=== PATIENT | female | born 1950 | race Caucasian/White ===

== ENCOUNTER 2017-10-30 16:56 | Inpatient (IN) | payer OTHER ==
--- NOTE | 2017-10-30 17:26 | ER ---
Nurse's Notes [facility] Name: Louise Raines Age: 67 yrs Sex: Female : 1950 Arrival Date: 10/30/2017 Time: 17:09 Bed 30 Private MD: Diagnosis: Chronic obstructive pulmonary disease with (acute) exacerbation;Hypoxemia;Weakness Presentation: 10/30 17:16 Presenting complaint: EMS states: Patient called for CP, SOB, wheezing and productive aj1 cough. She was diagnosed with a URI 4 days ago but has been feeling progressively worse. Patient had diffuse wheezing on EMS arrival, heart rate in the 120's. Patient was administered albuterol and atrovent by nebulizer. After treatment patient states that she is feeling much better, heart rate down to the 90's. Breath sounds with wheezes bilaterally. Patient complains of feeling very fatigued for the last several days. Transition of care: patient was not received from another setting of care. Onset of symptoms was October 26, 2017. Initial Sepsis Screen: Does the patient meet any 2 criteria? RR > 20 per min. HR > 90 bpm. Yes Does the patient have a suspected source of infection? Yes: Productive cough/pneumonia If YES to both, name of provider notified: Malcolm Teran MD. Care prior to arrival: Medication(s) given: Albuterol Neb x 1, Atrovent Neb x 1, IV initiated. 20 GA, in the right antecubital area, Glucose check: 92 Med neb given. 17:16 Method Of Arrival: EMS aj1 17:16 Acuity: JAIME 3 aj1 Triage Assessment: 17:26 General: Appears uncomfortable, ill, Behavior is calm, cooperative. Pain: Complains of aj1 pain in chest. Neuro: Level of Consciousness is awake, alert, obeys commands, Oriented to person, place, time, situation, Moves all extremities. Full function Speech is normal, Facial symmetry appears normal. Cardiovascular: Reports chest pain, fatigue, lightheadedness, shortness of breath, Heart tones S1 S2 present Patient's skin is warm and dry. Respiratory: Reports shortness of breath at rest cough that is productive, Airway is patent Respiratory effort is even, unlabored, Respiratory pattern is regular, symmetrical, Breath sounds with wheezes bilaterally. Derm: Skin is pale. Historical: - Allergies: 17:26 Adhesives; aj1 17:26 ambien; aj1 17:26 Iodine; aj1 - Home Meds: 17:26 Advair Diskus 100-50 mcg/dose Inhl dsdv 1 puff 2 times per day [Active]; albuterol aj1 sulfate 2.5 mg /3 mL (0.083 %) Inhl nebu every 4 hours [Active]; amlodipine 10 mg tab 1 tab once daily [Active]; aspirin 81 mg Oral TbEC 1 tab once daily [Active]; duloxetine 30 mg Oral cpDR 1 cap once daily [Active]; levothyroxine 50 mcg tab 1 tab once daily [Active]; Lopid 600 mg Oral tab 1 tab 2 times per day [Active]; metoprolol tartrate 50 mg Oral tab 1 tab 2 times per day [Active]; omeprazole 20 mg Oral cpDR 1 cap once daily [Active]; ropinirole 0.5 mg Oral tab 1 tab [Active]; Seroquel 200 mg Oral tab 1 tab [Active]; trazodone 50 mg Oral tab 1 tab [Active]; Vitamin D Oral 1000 unit [Active]; - PMHx: 17:26 COPD; Hypertension; Hypothyroidism; aj1 - PSHx: 17:26 Hysterectomy; Cholecystectomy; colon resection; stent in arm; aortic bypass (in pelvis);aj1 - Immunization history:: Adult Immunizations up to date. - Family history:: not pertinent. - Social history:: Smoking status: Patient uses tobacco products, smokes two packs cigarettes per day. Screenin:55 Abuse screen: Denies threats or abuse. Nutritional screening: No deficits noted. tl3 Tuberculosis screening: No symptoms or risk factors identified. Fall Risk None identified. Assessment: 17:55 General: Appears distressed, uncomfortable, emaciated. Pain: Unable to use pain scale. tl3 Patient is disoriented. Neuro: Level of Consciousness is awake, lethargic. Cardiovascular: Heart tones S1 S2 present Respiratory: Airway is patent Trachea midline Respiratory effort is labored, with nasal flaring, Respiratory pattern is tachypnea Breath sounds are diminished bilaterally. GI: No signs and/or symptoms were reported involving the gastrointestinal system. : No signs and/or symptoms were reported regarding the genitourinary system. EENT: No signs and/or symptoms were reported regarding the EENT system. Derm: Skin is fragile, is thin, Skin is pale. Musculoskeletal: No signs and/or symptoms reported regarding the musculoskeletal system. 17:55 Reassessment: pt seen and treated for upper respiratory infection on last Sunday, on tl3 prednisone and levofloxin. 19:00 Reassessment: No changes from previously documented assessment. Patient and/or family tl3 updated on plan of care and expected duration. Pain level reassessed. Patient is alert, oriented x 3, equal unlabored respirations, skin warm/dry/pink. pt arouses to verbal and tactile stimulation and will answer questions in one word answers. continues to not be engaged with her environment. Daughter at bedside. Vital Signs: 17:26 BP 110 / 73; Pulse 94; Resp 24; Temp 98.7; Pulse Ox 88% on R/A; aj1 17:29 Pulse Ox 94% on 2 lpm NC; aj1 17:55 BP 129 / 66; Pulse 88; Resp 22; Pulse Ox 99% ; tl3 18:04 Weight 38.1 kg; Height 5 ft. 4 in. (162.56 cm); tl3 19:00 BP 118 / 76; Pulse 93; Resp 16; Pulse Ox 96% on 2 lpm NC; tl3 18:04 Body Mass Index 14.42 (38.10 kg, 162.56 cm) tl3 ED Course: 17:09 Patient arrived in ED. gael 17:09 Malcolm Teran MD is Attending Physician. gael 17:13 Angela Betancur, RN is Primary Nurse. tl3 17:22 Triage completed. aj1 17:24 Aniket Rojas DO is Hospitalizing Provider. gael 17:26 X-ray completed. Portable x-ray completed in exam room. Patient tolerated procedure ml well. 17:27 XRAY Chest (1 view) In Process Unspecified. EDMS 17:30 Arm band placed on. aj1 17:34 EKG done, by professor of industrial technology. reviewed by Malcolm Teran MD. at1 17:55 Awaiting bed assignment. tl3 17:55 Patient has correct armband on for positive identification. Bed in low position. Call tl3 light in reach. Side rails up X2. Adult w/ patient. compliance monitor on. Pulse ox on. NIBP on. Door closed. Lights dimmed. Warm blanket given. 17:55 No provider procedures requiring assistance completed. Initial lab(s) drawn, by vt, tl3 sent to lab. Inserted saline lock: 24 gauge in left hand, using aseptic technique. Blood collected. 20:18 TSH Sent. tl3 20:19 Basic Metabolic Panel Sent. tl3 20:19 BNP Sent. tl3 20:19 Patient admitted, IV remains in place. tl3 Administered Medications: 18:04 Drug: Albuterol - atroVENT (3:1) (2.5 mg - 0.5 mg) 3 ml Route: Nebulizer; tl3 18:25 Drug: Rocephin - (cefTRIAXone) 1 grams Route: IVPB; Infused Over: 30 mins; Site: left tl3 wrist; 18:40 Follow up: IV Status: Completed infusion; IV Intake: 20ml tl3 18:27 Drug: SOLU-Medrol 2 mg/kg Route: IVP; Infused Over: 3 mins; Site: left wrist; tl3 20:07 Follow up: Response: No adverse reaction tl3 18:42 Drug: Zithromax 500 mg Route: IVPB; Infused Over: 1 hrs; Site: right wrist; tl3 19:45 Follow up: IV Status: Completed infusion; IV Intake: 250ml tl3 Intake: 18:40 IV: 20ml; Total: 20ml. tl3 19:45 IV: 250ml; Total: 270ml. tl3 Outcome: 17:25 Decision to Hospitalize by Provider. gael 20:19 Admitted to Tele accompanied by tech, via stretcher, with chart, Report called to tl3 ADWOA Garvin 20:19 Condition: stable 20:19 Instructed on the need for admit. 21:05 Patient left the ED. tl3 Signatures: Dispatcher [employer] Roselyn Masters, RN RN aj1 Malcolm Teran MD MD cha Lopez, Melissa ml gonzales, Amanda, astrophysics teacher EKG TatAngela Adkins RN RN tl3
--- NOTE | 2017-10-30 17:26 | EDPHYS ---
Physician Documentation [facility] Name: Louise Raines Age: 67 yrs Sex: Female : 1950 Arrival Date: 10/30/2017 Time: 17:09 Bed 30 Private MD: ED Physician Malcolm Teran HPI: 10/30 17:13 This 67 yrs old Female presents to ER via Unassigned with complaints of copd gael exacerbation. 17:13 The patient has shortness of breath at rest. Onset: The symptoms/episode began/occurred gael 2 day(s) ago. Duration: The symptoms are continuous, and are steadily getting worse. The patient's shortness of breath has no apparent modifying factors. The patient presents with a history of heart racing. The patient or guardian reports airway noise, cough, that is constant, difficulty breathing, flu symptoms. Historical: - Allergies: 17:26 Adhesives; aj1 17:26 ambien; aj1 17:26 Iodine; aj1 - Home Meds: 17:26 Advair Diskus 100-50 mcg/dose Inhl dsdv 1 puff 2 times per day [Active]; albuterol aj1 sulfate 2.5 mg /3 mL (0.083 %) Inhl nebu every 4 hours [Active]; amlodipine 10 mg tab 1 tab once daily [Active]; aspirin 81 mg Oral TbEC 1 tab once daily [Active]; duloxetine 30 mg Oral cpDR 1 cap once daily [Active]; levothyroxine 50 mcg tab 1 tab once daily [Active]; Lopid 600 mg Oral tab 1 tab 2 times per day [Active]; metoprolol tartrate 50 mg Oral tab 1 tab 2 times per day [Active]; omeprazole 20 mg Oral cpDR 1 cap once daily [Active]; ropinirole 0.5 mg Oral tab 1 tab [Active]; Seroquel 200 mg Oral tab 1 tab [Active]; trazodone 50 mg Oral tab 1 tab [Active]; Vitamin D Oral 1000 unit [Active]; - PMHx: 17:26 COPD; Hypertension; Hypothyroidism; aj1 - PSHx: 17:26 Hysterectomy; Cholecystectomy; colon resection; stent in arm; aortic bypass (in pelvis);aj1 - Immunization history:: Adult Immunizations up to date. - Family history:: not pertinent. - Social history:: Smoking status: Patient uses tobacco products, smokes two packs cigarettes per day. ROS: 17:13 Constitutional: Negative for fever, chills, and weight loss, Eyes: Negative for injury, gael pain, redness, and discharge, ENT: Negative for injury, pain, and discharge, Neck: Negative for injury, pain, and swelling, Cardiovascular: Negative for chest pain, palpitations, and edema, Abdomen/GI: Negative for abdominal pain, nausea, vomiting, diarrhea, and constipation, Back: Negative for injury and pain, : Negative for injury, bleeding, discharge, and swelling, MS/Extremity: Negative for injury and deformity, Skin: Negative for injury, rash, and discoloration, Neuro: Negative for headache, weakness, numbness, tingling, and seizure, Psych: Negative for depression, anxiety, suicide ideation, homicidal ideation, and hallucinations, Allergy/Immunology: Negative for hives, rash, and allergies, Endocrine: Negative for neck swelling, polydipsia, polyuria, polyphagia, and marked weight changes, Hematologic/Lymphatic: Negative for swollen nodes, abnormal bleeding, and unusual bruising. 17:13 Respiratory: Positive for cough, shortness of breath, wheezing, inspiratory, expiratory. Exam: 17:13 Constitutional: This is a well developed, well nourished patient who is awake, alert, gael and in no acute distress. Head/Face: Normocephalic, atraumatic. Eyes: Pupils equal round and reactive to light, extra-ocular motions intact. Lids and lashes normal. Conjunctiva and sclera are non-icteric and not injected. Cornea within normal limits. Periorbital areas with no swelling, redness, or edema. ENT: Nares patent. No nasal discharge, no septal abnormalities noted. Tympanic membranes are normal and external auditory canals are clear. Oropharynx with no redness, swelling, or masses, exudates, or evidence of obstruction, uvula midline. Mucous membranes moist. Neck: Trachea midline, no thyromegaly or masses palpated, and no cervical lymphadenopathy. Supple, full range of motion without nuchal rigidity, or vertebral point tenderness. No Meningismus. Chest/axilla: Normal chest wall appearance and motion. Nontender with no deformity. No lesions are appreciated. Cardiovascular: Regular rate and rhythm with a normal S1 and S2. No gallops, murmurs, or rubs. Normal PMI, no JVD. No pulse deficits. Abdomen/GI: Soft, non-tender, with normal bowel sounds. No distension or tympany. No guarding or rebound. No evidence of tenderness throughout. Back: No spinal tenderness. No costovertebral tenderness. Full range of motion. Female : Normal external genitalia. Skin: Warm, dry with normal turgor. Normal color with no rashes, no lesions, and no evidence of cellulitis. MS/ Extremity: Pulses equal, no cyanosis. Neurovascular intact. Full, normal range of motion. Neuro: Awake and alert, GCS 15, oriented to person, place, time, and situation. Cranial nerves II-XII grossly intact. Motor strength 5/5 in all extremities. Sensory grossly intact. Cerebellar exam normal. Normal gait. Psych: Awake, alert, with orientation to person, place and time. Behavior, mood, and affect are within normal limits. 17:13 Respiratory: the patient does not display signs of respiratory distress, Respirations: normal, Breath sounds: bronchial sounds, that are mild, that are moderate, decreased breath sounds, that are mild, rhonchi, that are mild, wheezing: expiratory 18:11 Musculoskeletal/extremity: DVT Exam: No signs of deep vein thrombosis. no pain, no gael swelling, no tenderness, negative Homans' sign noted on exam, no appreciated bluish discoloration, no erythema, no increased warmth. Vital Signs: 17:26 BP 110 / 73; Pulse 94; Resp 24; Temp 98.7; Pulse Ox 88% on R/A; aj1 17:29 Pulse Ox 94% on 2 lpm NC; aj1 17:55 BP 129 / 66; Pulse 88; Resp 22; Pulse Ox 99% ; tl3 18:04 Weight 38.1 kg; Height 5 ft. 4 in. (162.56 cm); tl3 19:00 BP 118 / 76; Pulse 93; Resp 16; Pulse Ox 96% on 2 lpm NC; tl3 18:04 Body Mass Index 14.42 (38.10 kg, 162.56 cm) 3 MDM: 17:09 Patient medically screened. [facility] 17:13 Data reviewed: vital signs, nurses notes, lab test result(s), EKG, radiologic studies, [facility] plain films. 10/30 17:12 Order name: Basic Metabolic Panel [facility] 10/30 17:12 Order name: BNP [facility] 10/30 17:12 Order name: CBC with Diff; Complete Time: 17:52 [facility] 10/30 17:12 Order name: Ckmb [facility] 10/30 17:12 Order name: CPK [facility] 10/30 17:12 Order name: LFT's [facility] 10/30 17:12 Order name: Magnesium [facility] 10/30 17:12 Order name: PT-INR [facility] 10/30 17:12 Order name: Ptt, Activated [facility] 10/30 17:12 Order name: Troponin (emerg Dept Use Only) [facility] 10/30 17:12 Order name: Blood Culture Adult (2) [facility] 10/30 17:12 Order name: Lipase [facility] 10/30 17:12 Order name: Urine Culture [facility] 10/30 17:13 Order name: Basic Metabolic Panel [facility] 10/30 17:12 Order name: XRAY Chest (1 view); Complete Time: 18:05 [facility] 10/30 17:12 Order name: EKG; Complete Time: 17:14 [facility] 10/30 17:12 Order name: Cardiac monitoring; Complete Time: 19:00 [facility] 10/30 17:12 Order name: EKG - Nurse/Tech; Complete Time: 18:45 [facility] 10/30 17:12 Order name: IV Saline Lock; Complete Time: 18:45 [facility] 10/30 17:12 Order name: Labs collected and sent; Complete Time: 18:45 [facility] 10/30 17:13 Order name: BNP B-Type Natriuretic Peptide; Complete Time: 18:11 [facility] 10/30 17:30 Order name: TSH [facility] 10/30 17:30 Order name: Thyroid Stimulating Hormone [facility] 10/30 17:32 Order name: Procalcitonin [facility] 10/30 17:32 Order name: Flu [facility] 10/30 17:57 Order name: CONS Physician Consult [facility] 10/30 17:12 Order name: O2 Per Protocol; Complete Time: 19:00 [facility] 10/30 17:12 Order name: O2 Sat Monitoring; Complete Time: 19:00 [facility] Administered Medications: 18:04 Drug: Albuterol - atroVENT (3:1) (2.5 mg - 0.5 mg) 3 ml Route: Nebulizer; tl3 18:25 Drug: Rocephin - (cefTRIAXone) 1 grams Route: IVPB; Infused Over: 30 mins; Site: left tl3 wrist; 18:40 Follow up: IV Status: Completed infusion; IV Intake: 20ml tl3 18:27 Drug: SOLU-Medrol 2 mg/kg Route: IVP; Infused Over: 3 mins; Site: left wrist; tl3 20:07 Follow up: Response: No adverse reaction tl3 18:42 Drug: Zithromax 500 mg Route: IVPB; Infused Over: 1 hrs; Site: right wrist; tl3 19:45 Follow up: IV Status: Completed infusion; IV Intake: 250ml tl3 Disposition: 10/30/17 17:25 Hospitalization ordered by Aniket Rojas for Inpatient Admission. Preliminary diagnosis are Chronic obstructive pulmonary disease with (acute) exacerbation, Hypoxemia, Weakness. - Bed requested for Telemetry/MedSurg (Inpatient). - Status is Inpatient Admission. tl3 - Condition is Fair. - Problem is new. - Symptoms have improved. UTI on Admission? No Signatures: Dispatcher [employer] EDRoselyn Bucio RN RN aj1 Malcolm Teran MD MD cha Gallardo, Ana ag Lowrey, Tammy, RN RN tl3 Corrections: (The following items were deleted from the chart) 17:52 17:25 Hospitalization Ordered by Aniket Rojas DO for Inpatient Admission. Preliminary gael diagnosis is Chronic obstructive pulmonary disease with (acute) exacerbation; Hypoxemia. Bed requested for Telemetry/MedSurg (Inpatient). Status is Inpatient Admission. Condition is Fair. Problem is new. Symptoms have improved. UTI on Admission? No. gael 18:39 17:52 10/30/2017 17:25 Hospitalization Ordered by Aniket Rojas DO for Inpatient ag Admission. Preliminary diagnosis is Chronic obstructive pulmonary disease with (acute) exacerbation; Hypoxemia; Weakness. Bed requested for Telemetry/MedSurg (Inpatient). Status is Inpatient Admission. Condition is Fair. Problem is new. Symptoms have improved. UTI on Admission? No. gael 21:05 18:39 10/30/2017 17:25 Hospitalization Ordered by Aniket Rojas DO for Inpatient tl3 Admission. Preliminary diagnosis is Chronic obstructive pulmonary disease with (acute) exacerbation; Hypoxemia; Weakness. Bed requested for Telemetry/MedSurg (Inpatient). Status is Inpatient Admission. Condition is Fair. Problem is new. Symptoms have improved. UTI on Admission? No. ag
[2017-10-30] MEDS ORDERED: IPRATROPIUM BROM 0.5MG/2.5ML ONE (17:35)
[2017-10-30] MEDS ORDERED: ALBUTEROL 2.5 MG/3 ML NEB SOL ONE (17:35)
[2017-10-30 17:38] LABS: Absolute Lymphocytes (CBC) 1.8 K/uL (0.7-4.9); Absolute Monocytes 0.8 K/uL (0.1-1.3); Absolute Neutrophil 5.2 K/uL (1.8-8.0); Basophils % 0.5 % (0-1.3); Eosinophils % 1.1 % (0-4.4); Hematocrit 44.5 % (36.0-45.0); Lymphocytes % 23.1 % (15.3-44.8); MCH 29.4 pg (27.0-35.0); MCV 87.3 fL (80-100); MPV 9.7 fL (7.6-11.3); Monocytes % 9.7 % (3.3-12.3); RBC Red Blood Cell Count 5.09 M/uL (3.86-4.86)
--- NOTE | 2017-10-30 18:02 | RAD REPORT ---
EXAM DESCRIPTION: Yissel Single View10/30/2017 5:30 pm CLINICAL HISTORY: sob COMPARISON: June 2017 FINDINGS: The lungs are hyperaerated. The lungs appear clear of acute infiltrate. The heart is normal size IMPRESSION: No acute abnormalities displayed
--- NOTE | 2017-10-30 18:05 | P.HP ---
Certification for Inpatient Patient admitted to: Inpatient With expected LOS: >2 Midnights Patient will require the following post-hospital care: Other Practitioner: I am a practitioner with admitting privileges, knowledge of patient current condition, hospital course, and medical plan of care. Services: Services provided to patient in accordance with Admission requirements found in Title 42 Section 412.3 of the Code of Federal Regulations Patient History Date of Service: 10/30/17 Primary Care Provider: Rashard Polo NP Reason for admission: Shortness of breath History of Present Illness: 67-year-old female presented to the ER with increasing shortness of breath. Patient had increasing shortness of breath over the past several days. She had been seen by her PCP and found to have an upper respiratory infection she was started on antibiotic therapy. Since that time her shortness of breath has worsened. Increase wheezing noted cough noted. Mild chest pain noted with shortness of breath noted. No significant nausea, vomiting noted. Patient has had poor oral intake. This includes fluids. Patient with multiple medical problems including COPD oxygen-dependent, tobacco abuse, history of CVA, hypertension, depression with anxiety, hyperlipidemia, chronic renal disease. In the ER the patient was evaluated. Patient was having some mild distress. Patient given Solu-Medrol and breathing treatments. White count count 7.9, hemoglobin 15. CMP cardiac enzymes pending at this time. Influenza evaluation also pending. Due to the nature of her symptoms the patient was admitted for further evaluation and treatment. When I saw the patient ER, she appeared with increased fatigue. She did not appear in any significant respiratory distress that would require BiPAP. Patient was given a breathing treatment. Daughter at bedside. Allergies Iodine and Iodide Containing Produc Allergy (Unknown, Verified 08/21/16 17:05) Hives/Rash adhesive tape Allergy (Verified 08/21/16 17:05) Itching zolpidem [From Ambien] Allergy (Verified 08/21/16 17:05) Anaphylaxis Adhesives Allergy (Uncoded 02/02/17 23:22) Unknown Home medications list reviewed: Yes Home Medications: Amlodipine [Norvasc*] 1 tab PO DAILY 05/12/16 Aspirin [Aspirin EC 81 MG] 1 tab PO DAILY 05/12/16 Gemfibrozil [Lopid*] 1 tab PO DAILY 05/12/16 Levothyroxine Sodium 1 tab PO DAILY 05/12/16 Quetiapine Fumarate [Seroquel] 1 tab PO BEDTIME 05/12/16 Ropinirole HCl 1 tab PO DAILY 05/12/16 Trazodone [Desyrel*] 3 tab PO BEDTIME 05/12/16 Vit D3 1,000 units PO DAILY 05/12/16 Duloxetine HCl 60 mg PO DAILY 05/13/16 Metoprolol Tartrate [Lopressor*] 25 mg PO BID #60 tab 05/15/16 Cholecalciferol (Vitamin D3) [Vitamin D 1000 Iu Tab*] 1 tab PO DAILY 08/21/16 Levofloxacin [Levaquin] 500 mg PO DAILY #10 tablet 08/23/16 - Past Medical/Surgical History Diabetic: No -: COPD, oxygen-dependent -: Hypertension -: History of ulcerative colitis -: Arthritis -: GERD -: Hypothyroidism -: Depression with anxiety -: Restless leg syndrome -: History CVA -: Chronic renal disease -: Tobacco abuse -: ABF leg aortic replacement -: Cholecystectomy -: Hysterectomy -: Stent -: Colorectal surgery Psychosocial/ Personal History: The patient lives with her sister. She is a . She has 1 child. - Family History Mother -: Hypertension Father Notes: committed suicide - Social History Smoking Status: Heavy Tobacco smoker (>10 cigarettes/day) Counseled patient to stop smoking for: less than 10 minutes Smoking therapy provided: Yes Patient receptive to therapy: Yes Alcohol use: No CD- Drugs: No Caffeine use: No Place of Residence: Home Review of Systems General: Weakness, Malaise, As per HPI Eyes: Unremarkable ENT: Unremarkable Respiratory: Shortness of Breath, SOB with Excertion, Sputum, Wheezing, As per HPI Cardiovascular: Chest Pain, As per HPI Gastrointestinal: Unremarkable Genitourinary: Unremarkable Musculoskeletal: Unremarkable Integumentary: Unremarkable Neurological: As per HPI Lymphatics: Unremarkable Physical Examination - Physical Exam General: Alert, In no apparent distress, Oriented x3, Cooperative HEENT: Atraumatic, Normocephalic, PERRLA, Other (Dry mucous membranes) Neck: Supple, No Thyromegaly Respiratory: Expiratory wheezes (Bilateral), Other (Poor inspiration and expiration) Cardiovascular: Normal pulses, Regular rate/rhythm Gastrointestinal: Normal bowel sounds, Soft and benign, Non-distended, No tenderness, No masses, No rebound, No guarding Musculoskeletal: No erythema, No tenderness, No warmth Integumentary: No tenderness/swelling, No erythema, No warmth, No cyanosis, Other (Tenting of the skin noted, muscle wasting to the upper and lower extremities) Neurological: Normal speech, Normal strength at 5/5 x4 extr, Normal tone, Normal affect - Studies Laboratory Data (last 24 hrs) 10/30/17 17:30: WBC 7.9, Hgb 15.0, Hct 44.5, Plt Count 170 Assessment and Plan - Problems (Diagnosis) (1) Dyspnea Current Visit: Yes Status: Acute Plan: Secondary to COPD exacerbation. Patient is stable at this time. Will continue to maintain sats above 90%. Will start IV Solu-Medrol and COPD treatment. Pulmonology consulted to further assess. Will review x-ray. Patient recently started on antibiotic therapy for upper respiratory infection. Will continue with IV Levaquin. Respiratory to maximize her COPD treatment. Will continue to reassess. Await further recommendations from pulmonology. Patient with history of COPD, tobacco abuse and oxygen-dependent. Qualifiers: Dyspnea type: shortness of breath Qualified Code(s): R06.02 - Shortness of breath; R06.00 - Dyspnea, unspecified; R06.01 - Orthopnea (2) Hypothyroidism Current Visit: Yes Status: Chronic Plan: Will continue with her medication. Qualifiers: Hypothyroidism type: unspecified Qualified Code(s): E03.9 - Hypothyroidism , unspecified (3) GERD (gastroesophageal reflux disease) Current Visit: Yes Status: Chronic Plan: Will continue with medication Qualifiers: Esophagitis presence: esophagitis presence not specified Qualified Code(s) : K21.9 - Gastro-esophageal reflux disease without esophagitis (4) Dehydration Current Visit: Yes Status: Acute Plan: Will provide IV fluids. Encourage oral intake. (5) Chronic renal disease Current Visit: Yes Status: Chronic Plan: Patient with history of chronic renal disease. Await lab to further evaluate Qualifiers: Chronic kidney disease stage: stage 2 (mild) Qualified Code(s): N18.2 - Chronic kidney disease, stage 2 (mild) (6) Hyperlipidemia Current Visit: Yes Status: Chronic Plan: Continue with medication Qualifiers: Hyperlipidemia type: unspecified Qualified Code(s): E78.5 - Hyperlipidemia , unspecified (7) RLS (restless legs syndrome) Current Visit: Yes Status: Chronic Plan: Will verify medication. (8) Depression Current Visit: Yes Status: Chronic Plan: Will continue with her medication. Qualifiers: Depression Type: unspecified Qualified Code(s): F32.9 - Major depressive disorder, single episode, unspecified (9) Insomnia Current Visit: Yes Status: Chronic Plan: Patient with history of insomnia. Patient takes multiple medications. Will need to verify medication. Will hold trazodone at this time Qualifiers: Insomnia type: unspecified Qualified Code(s): G47.00 - Insomnia, unspecified (10) Hypertension Onset Date: 08/22/16 Current Visit: No Status: Chronic Plan: Will continue with medication Qualifiers: Hypertension type: essential hypertension Qualified Code(s): I10 - Essential (primary) hypertension (11) Chronic obstructive pulmonary disease Onset Date: 08/22/16 Current Visit: No Status: Acute Plan: Patient with COPD and oxygen dependence. Tobacco cessation addressed in detail. Will continue with COPD treatment. Patient on IV Solu-Medrol and COPD medication. Will continue to reassess. Will maintain sats above 90%. Pulmonology to evaluate. Qualifiers: COPD type: COPD with acute exacerbation Qualified Code(s): J44.1 - Chronic obstructive pulmonary disease with (acute) exacerbation (12) Chest pain Onset Date: 05/12/16 Current Visit: No Status: Acute Plan: Likely from COPD exacerbation. Will check echocardiogram. Will monitor cardiac enzymes. Qualifiers: Chest pain type: unspecified Qualified Code(s): R07.9 - Chest pain, unspecified (13) History of CVA (cerebrovascular accident) Current Visit: Yes Status: Chronic Plan: Will continue with her medication Discharge Plan: Home Plan to discharge in: Greater than 2 days - Advance Directives Does patient have a Living Will: Yes Does patient have a Durable POA for Healthcare: No - Code Status/Comfort Care Code Status Assessed: Yes Time Spent Managing Pts Care (In Minutes): 55
[2017-10-30] MEDS ORDERED: AZITHROMYCIN 500 MG/250 ML BAG ONE (18:14)
[2017-10-30] MEDS ORDERED: CEFTRIAXONE/SWI 1gm 1 GM/10 ML SYR ONE (18:14)
[2017-10-30] MEDS ORDERED: METHYLPREDNISOLONE 40 MG INJ ONE (18:14)
[2017-10-30 19:11] LABS: Bicarbonate 28 mEq/L (21-31); Glucose Level 90 mg/dL (65-120); Lipase 27 U/L (22-51); Potassium 3.8 mEq/L (3.6-5.0); Sodium Level 145 mEq/L (135-145)
[2017-10-30 19:17] LABS: ALT/SGPT 8 IU/L (10-60); AST/SGOT 14 IU/L (10-42); Albumin 3.3 g/dL (3.2-5.5); Alkaline Phosphatase 56 IU/L (42-121); BUN Blood Urea Nitrogen 24 mg/dL (6-20); Bilirubin Direct < 0.1 mg/dL (0-0.2); Bilirubin Total 0.3 mg/dL (0.3-1.2); Creatine Phosphokinase 17 IU/L (22-269); Magnesium 2.3 mg/dL (1.8-2.5); Protein, Total 6.9 g/dL (6.0-8.3)
[2017-10-30 19:53] LABS: Protime INR 0.95
[2017-10-30 19:58] LABS: CKMB Creatine Kinase MB 1.9 ng/ml (0.3-4.0)
[2017-10-30] MEDS ORDERED: IPRATROPIUM BROM 0.5MG/2.5ML NEB PRN (20:57)
[2017-10-30] MEDS ORDERED: METHYLPREDNISOLONE 125 MG INJ IV SCH (20:57)
[2017-10-30] MEDS ORDERED: ONDANSETRON 4 MG/2 ML VIAL IV PRN (20:57)
[2017-10-30] MEDS ORDERED: ALBUTEROL 2.5 MG/3 ML NEB SOL NEB PRN (20:57)
[2017-10-30] MEDS ORDERED: BENZONATATE 100 MG CAP PO PRN (20:57)
[2017-10-30] MEDS: GEMFIBROZIL 600 MG TAB PO SCH (21:00)
[2017-10-30] MEDS: QUETIAPINE 100MG TAB PO SCH (21:00)
[2017-10-30] MEDS: METOPROLOL TAR 50 MG TAB PO SCH (21:00)
[2017-10-30] MEDS ORDERED: DULOXETINE 30 MG CAP PO SCH (21:00)
[2017-10-30] MEDS: ARFORMOTEROL TARTRATE 15 MCG/2 ML VIAL.NEB NEB SCH (21:36)
[2017-10-30] MEDS: NA CHLORIDE 0.9% 1,000 ML IV SCH (21:58)
[2017-10-30] MEDS: Levofloxacin500mg IV 500 MG/100 ML BAG IV SCH (21:58)
[2017-10-30 22:29] LABS: CKMB Creatine Kinase MB 1.9 ng/ml (0.3-4.0)
[2017-10-30] MEDS ORDERED: KCL 20 MEQ/100 mL IVPB 20 MEQ/100 ML BAG IV SCH (23:00)
[2017-10-30] MEDS: METHYLPREDNISOLONE 125 MG INJ IV SCH (23:30)
[2017-10-31] MEDS: METHYLPREDNISOLONE 125 MG INJ IV SCH ×3 (05:09→19:51)
[2017-10-31] MEDS: LEVOTHYROXINE SOD 0.05 MG TABLET PO SCH (05:13)
[2017-10-31] MEDS: PANTOPRAZOLE 40MG TABLET PO SCH (05:31)
[2017-10-31 05:46] LABS: Absolute Lymphocytes (CBC) 0.4 K/uL (0.7-4.9); Absolute Monocytes 0.1 K/uL (0.1-1.3); Basophils % 0.1 % (0-1.3); Hematocrit 42.1 % (36.0-45.0); MCH 29.8 pg (27.0-35.0); MCV 89.8 fL (80-100); MPV 9.9 fL (7.6-11.3); Monocytes % 1.3 % (3.3-12.3); RBC Red Blood Cell Count 4.68 M/uL (3.86-4.86)
[2017-10-31 06:17] LABS: Blood Morphology Comment NOT SEEN (NOT SEEN); Platelet Estimate ADEQ; Urine White Blood Cell Casts OK
[2017-10-31 06:39] LABS: CKMB Creatine Kinase MB 1.5 ng/ml (0.3-4.0); Magnesium 2.1 mg/dL (1.8-2.5); Potassium 4.4 mEq/L (3.6-5.0)
--- NOTE | 2017-10-31 06:57 | EKG ---
Test Date: 2017-10-30 Test Time: 17:19:49 Pattern Layout Worker: JAMA MEASUREMENT RESULTS: Intervals: Rate: 94 MT: 102 QRSD: 72 QT: 354 QTc: 442 [place]: P: 78 MT: 102 QRS: 66 T: 69 INTERPRETIVE STATEMENTS: Sinus rhythm with short MT Biatrial enlargement Left ventricular hypertrophy with repolarization abnormality Abnormal ECG Compared to ECG 02/02/2017 19:25:38 Short MT interval now present Early repolarization now present Sinus tachycardia no longer present ST (T wave) deviation no longer present Electronically Signed On 10-31-17 06:57:14 CDT by Benito Eason
[2017-10-31] MEDS: ARFORMOTEROL TARTRATE 15 MCG/2 ML VIAL.NEB NEB SCH ×2 (08:00→19:12)
--- NOTE | 2017-10-31 08:06 | P.CNS ---
Date of Consult: 10/31/17 Reason for Consult: Shortness of breath Primary Care Provider: Rashard Polo NP Chief Complaint: Shortness of breath History of Present Illness: Patient is 67 years of age with a history of COPD 2 pack-a-day smoker has been sick for about 4 days patient is a very poor historian lying in a decubitus position does not communicate much discussed with her daughter was treated with antibiotics last Sunday yesterday found her unresponsive lying in bed no history of alcohol abuse complaining of some productive cough worsening shortness of breath Allergies Iodine and Iodide Containing Produc Allergy (Unknown, Verified 10/30/17 22:35) Hives/Rash adhesive tape Allergy (Verified 10/30/17 22:35) Itching zolpidem [From Ambien] Allergy (Verified 10/30/17 22:35) Anaphylaxis Home Medications: Amlodipine [Norvasc*] 1 tab PO DAILY 05/12/16 Aspirin [Aspirin EC 81 MG] 1 tab PO DAILY 05/12/16 Gemfibrozil [Lopid*] 1 tab PO BID 05/12/16 Levothyroxine Sodium 1 tab PO DAILY 05/12/16 Quetiapine Fumarate [Seroquel] 1 tab PO BEDTIME 05/12/16 Ropinirole HCl 1 tab PO DAILY 05/12/16 Trazodone [Desyrel*] 3 tab PO BEDTIME 05/12/16 Duloxetine HCl 60 mg PO DAILY 05/13/16 Metoprolol Tartrate [Lopressor*] 25 mg PO BID #60 tab 05/15/16 Cholecalciferol (Vitamin D3) [Vitamin D 1000 Iu Tab*] 1 tab PO DAILY 08/21/16 Levofloxacin [Levaquin] 500 mg PO DAILY #10 tablet 08/23/16 Albuterol Sulfate [Albuterol Sulfate 0.083% Neb Soln] 2.5 mg IH Q4HP PRN Fluticasone/Salmeterol [Advair 250-50 Diskus] 1 puff IH BID 10/30/17 Omeprazole 20 mg PO DAILY 10/30/17 - Past Medical/Surgical History Diabetic: No -: COPD, oxygen-dependent -: Hypertension -: History of ulcerative colitis -: Arthritis -: GERD -: Hypothyroidism -: Depression with anxiety -: Restless leg syndrome -: History CVA -: Chronic renal disease -: Tobacco abuse -: ABF leg aortic replacement -: Cholecystectomy -: Hysterectomy -: Stent -: Colorectal surgery Psychosocial/ Personal History: The patient lives with her sister. She is a . She has 1 child. - Family History Mother Medical History: Hypertension Father Notes: committed suicide - Social History Smoking Status: Current every day smoker Alcohol use: No CD- Drugs: No Caffeine use: Yes Place of Residence: Home Review of Systems is unable to be obtained Physical Examination Temp Pulse Resp BP Pulse Ox 98.5 F 102 H 17 138/61 94 10/31/17 04:00 10/31/17 04:00 10/31/17 04:00 10/31/17 04:00 10/31/17 04:00 General: Other HEENT: Atraumatic (Minimally responsive) Neck: Supple Respiratory: Diminished Cardiovascular: No edema, Normal S1 S2 Gastrointestinal: Normal bowel sounds, Soft and benign Musculoskeletal: No clubbing, No swelling Laboratory Data (last 24 hrs) 10/30/17 17:30: WBC 7.9, Hgb 15.0, Hct 44.5, Plt Count 170 10/30/17 17:30: B-Natriuretic Peptide 28 - Problems (1) Altered mental status Current Visit: Yes Status: Acute Plan: Patient is 67 years of age a very heavy smoker admitted with altered mental status worsening shortness of breath chest congestion heavy 2 pack a day smoker history of peripheral vascular disease admitted with problems over the preceding 4 days her labs are unremarkable apart from hyperchloremic acidosis will check the arterial blood gases continue with the present therapy continuous pulse ox
[2017-10-31] MEDS: METOPROLOL TAR 50 MG TAB PO SCH ×2 (08:21→21:00)
[2017-10-31] MEDS: GEMFIBROZIL 600 MG TAB PO SCH ×2 (08:21→21:00)
[2017-10-31] MEDS: ASPIRIN EC 81 MG TAB PO SCH (08:21)
[2017-10-31] MEDS: AMLODIPINE 5 MG TAB PO SCH (08:22)
[2017-10-31] MEDS: ENOXAPARIN 40 MG/0.4 ML SQ SCH (08:26)
[2017-10-31] MEDS: ACETAMINOPHEN 500 MG TAB PO PRN ×2 (08:29→19:51)
--- NOTE | 2017-10-31 08:41 | RAD REPORT ---
EXAM DESCRIPTION: Yissel West And Lat (2 Views)10/31/2017 6:58 am CLINICAL HISTORY: Cough COMPARISON: October FINDINGS: The lungs are hyperaerated. Mild opacities are suspected within right middle lobe/lingula . The heart is normal size IMPRESSION: COPD Mild opacities within the lingula/right middle lobe may indicate pneumonia
[2017-10-31 09:23] LABS: Arterial Blood Carboxyhemoglob 1.3 % (0-1.5); Blood Gas Oxyhemoglobin 88.5 % (94-97); Blood O2 Saturation 90.7 % (92-98.5)
--- NOTE | 2017-10-31 11:00 | ECHO ---
HEIGHT: 5 ft 4 in WEIGHT: 84 lb 0 oz DATE OF STUDY: 10/31/[address]: Aniket Rojas DO 2-DIMENSIONAL: YES M.MODE: YES DOPPLER: YES COLOR FLOW: YES TDS: NO PORTABLE: NO DEFINITY: NO BUBBLE STUDY: NO DIAGNOSIS: SHORTNESS OF BREATH, CHEST PAIN. CARDIAC HISTORY: CATHERIZATION: YES SURGERY: NO PROSTHETIC VALVE: NO PACEMAKER: NO MEASUREMENTS (cm) DIASTOLIC (NORMALS) SYSTOLIC (NORMALS) IVSd 1.2 (0.6-1.2) LA Diam 2.7 (1.9-4.0) LVEF 60-69% LVIDd 4.3 (3.5-5.7) LVIDs 2.9 (2.0-3.5) %FS 19% LVPWd 1.3 (0.6-1.2) Ao Diam 2.2 (2.0-3.7) 2 DIMENSIONAL ASSESSMENT: RIGHT ATRIUM: NORMAL LEFT ATRIUM: NORMAL RIGHT VENTRICLE: NORMAL LEFT VENTRICLE: NORMAL TRICUSPID VALVE: NORMAL MITRAL VALVE: NORMAL PULMONIC VALVE: NORMAL AORTIC VALVE: NORMAL PERICARDIAL EFFUSION: NONE AORTIC ROOT: NORMAL LEFT VENTRICULAR WALL MOTION: NORMAL. DOPPLER/COLOR FLOW: TRACE OF MITRAL AND TRICUSPID REGURGITATION. NORMAL RIGHT VENTRICULAR SYSTOLIC PRESSURE. COMMENTS: NORMAL 2D ECHO. TRACE OF MITRAL AND TRICUSPID REGURGITATION. TECHNOLOGIST: BUDDY MICHELLE
--- NOTE | 2017-10-31 11:17 | P.PN ---
Subjective Date of Service: 10/31/17 Primary Care Provider: Rashard Polo NP Chief Complaint: Shortness of breath Subjective: Improving Physical Examination - Vital Signs Temperature: 99.6 F Blood Pressure: 138/63 Pulse: 98 Respirations: 18 Pulse Ox (%): 95 - Physical Exam General: Alert, In no apparent distress, Oriented x3, Cooperative HEENT: Atraumatic Neck: Supple Respiratory: Expiratory wheezes (mild) Cardiovascular: Normal pulses, Regular rate/rhythm Gastrointestinal: Normal bowel sounds, Soft and benign, Non-distended, No tenderness, No masses, No rebound, No guarding Musculoskeletal: No erythema, No tenderness, No warmth Integumentary: No tenderness/swelling, No erythema, No warmth, No cyanosis Neurological: Normal speech, Normal strength at 5/5 x4 extr, Normal tone, Normal affect - Studies Laboratory Data (last 24 hrs) 10/30/17 17:30: WBC 7.9, Hgb 15.0, Hct 44.5, Plt Count 170 10/30/17 17:30: B-Natriuretic Peptide 28 Microbiology Data (last 24 hrs): 10/30/17 16:56 Nasopharnyx Influenza Type A Antigen Screen - Final 10/30/17 16:56 Nasopharnyx Influenza Type B Antigen Screen - Final Medications List Reviewed: Yes Assessment & Plan - Problems (Diagnosis) (1) Dyspnea Onset Date: 10/31/17 Current Visit: Yes Status: Acute Plan: Secondary to COPD exacerbation. Patient is stable at this time. Will continue with treatment including steroids and COPD treatment. Will wean off oxygen. Chest x-ray shows left middle lobe pneumonia. Patient on IV antibiotic therapy. Will have physical therapy ambulate. Anticipate possible discharge in 1-2 days. Patient does not desire to go to a skilled facility. Will look for home health and physical therapy at discharge. Await recommendations from pulmonology. Qualifiers: Dyspnea type: shortness of breath Qualified Code(s): R06.02 - Shortness of breath; R06.00 - Dyspnea, unspecified; R06.01 - Orthopnea (2) Hypothyroidism Onset Date: 10/31/17 Current Visit: Yes Status: Chronic Plan: Will continue with her medication. Qualifiers: Hypothyroidism type: unspecified Qualified Code(s): E03.9 - Hypothyroidism , unspecified (3) GERD (gastroesophageal reflux disease) Onset Date: 10/31/17 Current Visit: Yes Status: Chronic Plan: Will continue with medication Qualifiers: Esophagitis presence: esophagitis presence not specified Qualified Code(s) : K21.9 - Gastro-esophageal reflux disease without esophagitis (4) Dehydration Onset Date: 10/31/17 Current Visit: Yes Status: Acute Plan: Will continue with IV fluids. Encourage oral intake. (5) Chronic renal disease Onset Date: 10/31/17 Current Visit: Yes Status: Chronic Plan: Patient with history of chronic renal disease. Will monitor closely. Qualifiers: Chronic kidney disease stage: stage 2 (mild) Qualified Code(s): N18.2 - Chronic kidney disease, stage 2 (mild) (6) Hyperlipidemia Onset Date: 10/31/17 Current Visit: Yes Status: Chronic Plan: Continue with medication Qualifiers: Hyperlipidemia type: unspecified Qualified Code(s): E78.5 - Hyperlipidemia , unspecified (7) RLS (restless legs syndrome) Onset Date: 10/31/17 Current Visit: Yes Status: Chronic Plan: Will verify home medication and restart. (8) Depression Onset Date: 10/31/17 Current Visit: Yes Status: Chronic Plan: Will continue with her medication. Qualifiers: Depression Type: unspecified Qualified Code(s): F32.9 - Major depressive disorder, single episode, unspecified (9) Insomnia Onset Date: 10/31/17 Current Visit: Yes Status: Chronic Plan: Patient with history of insomnia. Patient takes multiple medications. Will need to verify medication. Will hold trazodone at this time Qualifiers: Insomnia type: unspecified Qualified Code(s): G47.00 - Insomnia, unspecified (10) Hypertension Onset Date: 08/22/16 Current Visit: No Status: Chronic Plan: Will continue with medication Qualifiers: Hypertension type: essential hypertension Qualified Code(s): I10 - Essential (primary) hypertension (11) Chronic obstructive pulmonary disease Onset Date: 08/22/16 Current Visit: No Status: Acute Plan: Patient with COPD and oxygen dependence. Tobacco cessation addressed in detail. Will continue with COPD treatment. Continue as above. Await recommendation from pulmonology Qualifiers: COPD type: COPD with acute exacerbation Qualified Code(s): J44.1 - Chronic obstructive pulmonary disease with (acute) exacerbation (12) Chest pain Onset Date: 05/12/16 Current Visit: No Status: Acute Plan: Likely from COPD exacerbation. Echocardiogram shows normal ejection fraction. Patient also with pneumonia. Qualifiers: Chest pain type: unspecified Qualified Code(s): R07.9 - Chest pain, unspecified (13) History of CVA (cerebrovascular accident) Current Visit: Yes Status: Chronic Plan: Will continue with her medication (14) Pneumonia Onset Date: 08/22/16 Current Visit: No Status: Acute Plan: Continue with antibiotic treatment. Continue as above. Qualifiers: Pneumonia type: due to unspecified organism Lung location: middle lobe of lung Discharge Plan: Home Plan to discharge in: 48 Hours Time Spent Managing Pts Care (In Minutes): 55
[2017-10-31 13:43] LABS: CKMB Creatine Kinase MB 1.6 ng/ml (0.3-4.0)
[2017-10-31] MEDS: NA CHLORIDE 0.9% 1,000 ML IV SCH ×2 (14:29→23:37)
[2017-10-31] MEDS: Levofloxacin500mg IV 500 MG/100 ML BAG IV SCH (20:59)
[2017-10-31] MEDS: DULOXETINE 30 MG CAP PO SCH ×2 (20:59→21:00)
[2017-10-31] MEDS: QUETIAPINE 100MG TAB PO SCH (21:00)
[2017-10-31] MEDS ORDERED: HYDROCODONE/APAP 10/325 TAB PO ONE (23:36)
[2017-11-01] MEDS: METHYLPREDNISOLONE 125 MG INJ IV SCH ×3 (00:20→12:45)
[2017-11-01 00:59] LABS: Barbiturates NEGATIVE; Benzodiazepines NEGATIVE; Cocaine NEGATIVE; METHAMPHETAM NEGATIVE; Opiates NEGATIVE; Phencyclidine NEGATIVE; THC Cannibis NEGATIVE; Urine Appearance CLEAR; Urine Bilirubin NEGATIVE (NEG); Urine Blood NEGATIVE (NEG); Urine Color YELLOW; Urine Glucose TRACE (NEG); Urine Protein NEGATIVE (NEG); Urine Specific Gravity <=1.005 (1.005-1.030); Urine Urobilinogen 0.2 mg/dL (0.2-1.0); Urine pH 6.5 (5.0-7.0)
[2017-11-01 01:01] LABS: Urine Microscopic Reflex NO UMIC
[2017-11-01] MEDS: NA CHLORIDE 0.9% 1,000 ML IV SCH (04:31)
[2017-11-01 05:10] LABS: Absolute Lymphocytes (CBC) 0.4 K/uL (0.7-4.9); Absolute Monocytes 0.2 K/uL (0.1-1.3); Absolute Neutrophil 6.1 K/uL (1.8-8.0); MCH 29.5 pg (27.0-35.0); MCV 90.1 fL (80-100); MPV 8.9 fL (7.6-11.3); Monocytes % 2.4 % (3.3-12.3); RBC Red Blood Cell Count 4.32 M/uL (3.86-4.86)
[2017-11-01 05:57] LABS: Magnesium 2.1 mg/dL (1.8-2.5)
[2017-11-01] MEDS: PANTOPRAZOLE 40MG TABLET PO SCH (06:00)
[2017-11-01] MEDS: LEVOTHYROXINE SOD 0.05 MG TABLET PO SCH (06:00)
[2017-11-01] MEDS: ARFORMOTEROL TARTRATE 15 MCG/2 ML VIAL.NEB NEB SCH (07:07)
[2017-11-01] MEDS ORDERED: ROPINIROLE HCL 0.25 MG TAB PO SCH (09:00)
[2017-11-01] MEDS ORDERED: DULOXETINE 30 MG CAP PO SCH (09:00)
[2017-11-01] MEDS: ENOXAPARIN 40 MG/0.4 ML SQ SCH (09:02)
[2017-11-01] MEDS: AMLODIPINE 5 MG TAB PO SCH (09:03)
[2017-11-01] MEDS: ASPIRIN EC 81 MG TAB PO SCH (09:04)
[2017-11-01] MEDS: GEMFIBROZIL 600 MG TAB PO SCH (09:04)
[2017-11-01] MEDS: METOPROLOL TAR 50 MG TAB PO SCH (09:04)
--- NOTE | 2017-11-01 09:50 | P.DS ---
Admission Date: 10/30/17 Discharge Date: 11/01/17 Primary Care Provider: Rashard Polo NP Disposition: DC HOME/HOME HEALTH CARE Discharge Condition: GOOD Reason for Admission: Shortness of breath Consultations: Pulmonology-Dr. Del Rio Procedures: ECHO: Ejection fraction 60% - Problems (1) Dyspnea Onset Date: 10/31/17 Current Visit: Yes Status: Acute Qualifiers: Dyspnea type: shortness of breath Qualified Code(s): R06.02 - Shortness of breath; R06.00 - Dyspnea, unspecified; R06.01 - Orthopnea (2) Hypothyroidism Onset Date: 10/31/17 Current Visit: Yes Status: Chronic Qualifiers: Hypothyroidism type: unspecified Qualified Code(s): E03.9 - Hypothyroidism , unspecified (3) GERD (gastroesophageal reflux disease) Onset Date: 10/31/17 Current Visit: Yes Status: Chronic Qualifiers: Esophagitis presence: esophagitis presence not specified Qualified Code(s) : K21.9 - Gastro-esophageal reflux disease without esophagitis (4) Dehydration Onset Date: 10/31/17 Current Visit: Yes Status: Acute (5) Chronic renal disease Onset Date: 10/31/17 Current Visit: Yes Status: Chronic Qualifiers: Chronic kidney disease stage: stage 2 (mild) Qualified Code(s): N18.2 - Chronic kidney disease, stage 2 (mild) (6) Hyperlipidemia Onset Date: 10/31/17 Current Visit: Yes Status: Chronic Qualifiers: Hyperlipidemia type: unspecified Qualified Code(s): E78.5 - Hyperlipidemia , unspecified (7) RLS (restless legs syndrome) Onset Date: 10/31/17 Current Visit: Yes Status: Chronic (8) Depression Onset Date: 10/31/17 Current Visit: Yes Status: Chronic Qualifiers: Depression Type: unspecified Qualified Code(s): F32.9 - Major depressive disorder, single episode, unspecified (9) Insomnia Onset Date: 10/31/17 Current Visit: Yes Status: Chronic Qualifiers: Insomnia type: unspecified Qualified Code(s): G47.00 - Insomnia, unspecified (10) Hypertension Onset Date: 08/22/16 Current Visit: No Status: Chronic Qualifiers: Hypertension type: essential hypertension Qualified Code(s): I10 - Essential (primary) hypertension (11) Chronic obstructive pulmonary disease Onset Date: 08/22/16 Current Visit: No Status: Acute Qualifiers: COPD type: COPD with acute exacerbation Qualified Code(s): J44.1 - Chronic obstructive pulmonary disease with (acute) exacerbation (12) Chest pain Onset Date: 05/12/16 Current Visit: No Status: Acute Qualifiers: Chest pain type: unspecified Qualified Code(s): R07.9 - Chest pain, unspecified (13) History of CVA (cerebrovascular accident) Current Visit: Yes Status: Chronic (14) Pneumonia Onset Date: 08/22/16 Current Visit: No Status: Acute Qualifiers: Pneumonia type: due to unspecified organism Lung location: middle lobe of lung Brief History of Present Illness: 67-year-old female presented to the ER with increasing shortness of breath. Patient had increasing shortness of breath over the past several days. She had been seen by her PCP and found to have an upper respiratory infection she was started on antibiotic therapy. Since that time her shortness of breath has worsened. Increase wheezing noted cough noted. Mild chest pain noted with shortness of breath noted. No significant nausea, vomiting noted. Patient has had poor oral intake. This includes fluids. Patient with multiple medical problems including COPD oxygen-dependent, tobacco abuse, history of CVA, hypertension, depression with anxiety, hyperlipidemia, chronic renal disease. In the ER the patient was evaluated. Patient was having some mild distress. Patient given Solu-Medrol and breathing treatments. White count count 7.9, hemoglobin 15. CMP cardiac enzymes pending at this time. Influenza evaluation also pending. Due to the nature of her symptoms the patient was admitted for further evaluation and treatment. When I saw the patient ER, she appeared with increased fatigue. She did not appear in any significant respiratory distress that would require BiPAP. Patient was given a breathing treatment. Daughter at bedside. Hospital Course: Patient presented with shortness of breath and hypoxia secondary to COPD exacerbation with right middle lobe pneumonia. Patient also found to have acute renal injury likely from dehydration. Patient likely has underlying chronic renal disease. Patient was given treatment for her COPD and pneumonia. Her acute COPD exacerbation has resolved. This included IV steroids and antibiotic therapy. Patient was evaluated by pulmonology. Echocardiogram was done. Echo was normal with ejection fraction of 60%. Patient did well during the course of her stay. She improved. Patient without any significant chest pain or shortness of breath at discharge. Patient seen by pulmonology as an outpatient. At discharge the patient will continue with Levaquin 750 mg 1 pill daily for 7 days. Patient will also be provided prednisone 20 mg 1 pill twice daily for 5 days then 1 pill once daily for 5 days. Patient will continue with her COPD medication including Advair 1 puff twice daily and albuterol 1 unit dose 3 times a day as needed for shortness of breath. Prior to discharge home oxygen will be arranged to maintain sats above 90% for her COPD. Recommendations for the patient follow up with pulmonology in 1 week to follow up this hospitalization. Recommendation is to recheck chest x-ray in 2-4 weeks to monitor resolution. Tobacco cessation education will be provided. Patient has hypertension. Medications have been adjusted. At discharge Norvasc will be decreased to 5 mg daily. Metoprolol has been increased to 50 mg 1 pill twice daily. Recommendation is to maintain blood pressures less 150/ 80. Further adjustment can be done by her PCP. Patient has hyperlipidemia. She will continue with Lopid. Patient has GERD. Recommendation is to discontinue Prilosec and change to Protonix 40 mg 1 pill once daily. Patient has hypothyroidism. This remained stable during her stay. She will continue with Levoxyl 50 mcg daily. Patient has restless leg syndrome. She will continue with Requip. Patient has depression with anxiety. Patient will continue with Cymbalta and Seroquel. I will recommend to discontinue baclofen and trazodone at this time since she did well off medication during her stay. Both of these medications can increase sedation. Further adjustment can be done by her PCP or psychiatry. Patient with history of CVA in the past. Patient will continue with aspirin 81 mg daily. Tobacco cessation education will be provided and recommended. Patient presented with acute renal injury likely from dehydration. This has resolved. Patient may have underlying chronic renal disease. Recommendation is to recheck lab-BMP in 1 week to monitor progress. If renal insufficiency persists recommendations for the patient to follow up with nephrology as an outpatient. Vital Signs/Physical Exam: Temp Pulse Resp BP Pulse Ox 98.2 F 86 18 143/70 H 92 11/01/17 07:41 11/01/17 09:04 11/01/17 07:41 11/01/17 09:04 11/01/17 07:41 General: Alert, In no apparent distress, Oriented x3, Cooperative HEENT: Atraumatic Neck: Supple Respiratory: Expiratory wheezes (Minimal wheezing bilateral) Cardiovascular: Normal pulses, Regular rate/rhythm Gastrointestinal: Normal bowel sounds, Soft and benign, Non-distended, No tenderness, No masses, No rebound, No guarding Musculoskeletal: No erythema, No tenderness, No warmth Integumentary: No tenderness/swelling, No erythema, No warmth, No cyanosis Neurological: Normal speech, Normal strength at 5/5 x4 extr, Normal tone, Normal affect Laboratory Data at Discharge: WBC 6.6 K/uL (4.3-10.9) D 11/01/17 03:51 Hgb 12.7 g/dL (12.0-15.0) 11/01/17 03:51 Hct 39.0 % (36.0-45.0) 11/01/17 03:51 Plt Count 133 K/uL (152-406) L 11/01/17 03:51 PT 11.2 SECONDS (9.5-12.5) 10/30/17 19:16 INR 0.95 10/30/17 19:16 APTT 29.4 SECONDS (24.3-36.9) 10/30/17 19:16 Sodium 139 mEq/L (135-145) 11/01/17 03:51 Potassium 4.0 mEq/L (3.6-5.0) 11/01/17 03:51 BUN 26 mg/dL (6-20) H 11/01/17 03:51 Creatinine 0.84 mg/dL (0.44-1.00) 11/01/17 03:51 Glucose 131 mg/dL (65-120) H 11/01/17 03:51 Magnesium 2.1 mg/dL (1.8-2.5) 11/01/17 03:51 Total Bilirubin 0.3 mg/dL (0.3-1.2) 10/30/17 18:35 AST 14 IU/L (10-42) 10/30/17 18:35 ALT 8 IU/L (10-60) L 10/30/17 18:35 Alkaline Phosphatase 56 IU/L (42-121) 10/30/17 18:35 Troponin I < 0.03 ng/mL (<0.03) 05/09/18 13:10 B-Natriuretic Peptide 28 pg/ml (<=100) 10/30/17 17:30 Lipase 27 U/L (22-51) 10/30/17 18:35 Home Medications: Aspirin [Aspirin EC 81 MG] 1 tab PO DAILY 05/12/16 Gemfibrozil [Lopid*] 1 tab PO BID 05/12/16 Levothyroxine Sodium 1 tab PO DAILY 05/12/16 Quetiapine Fumarate [Seroquel] 200 mg PO BEDTIME 05/12/16 Ropinirole HCl 1 tab PO DAILY 05/12/16 Duloxetine HCl 60 mg PO DAILY 05/13/16 Cholecalciferol (Vitamin D3) [Vitamin D 1000 Iu Tab*] 1 tab PO DAILY 08/21/16 Albuterol Sulfate [Albuterol Sulfate 0.083% Neb Soln] 2.5 mg IH Q4HP PRN Duloxetine [Cymbalta *] 30 mg PO DAILY 10/31/17 Amlodipine [Norvasc*] 5 mg PO DAILY #30 tab 11/01/17 Benzonatate [Tessalon Perle*] 200 mg PO TID PRN #30 cap 11/01/17 Fluticasone/Salmeterol [Advair 250-50 Diskus] 1 puff IH BID #1 blst.w.dev Levofloxacin [Levaquin] 750 mg PO DAILY #7 tab 11/01/17 Metoprolol Tartrate [Lopressor*] 50 mg PO BID #60 tab 11/01/17 Pantoprazole [Protonix Tab*] 40 mg PO DAILYAC #30 tab 11/01/17 Prednisone [Deltasone] 20 mg PO SEECOM #15 tab 11/01/17 New Medications: Amlodipine [Norvasc*] 5 mg PO DAILY #30 tab Benzonatate [Tessalon Perle*] 200 mg PO TID PRN #30 cap PRN Reason: Cough Fluticasone/Salmeterol [Advair 250-50 Diskus] 1 puff IH BID #1 blst.w.dev Levofloxacin [Levaquin] 750 mg PO DAILY #7 tab Metoprolol Tartrate [Lopressor*] 50 mg PO BID #60 tab Pantoprazole [Protonix Tab*] 40 mg PO DAILYAC #30 tab Prednisone [Deltasone] 20 mg PO SEECOM #15 tab Patient Discharge Instructions: 1. Patient will need to follow up with a PCP in 1 week to follow up this hospitalization. 2. Patient presented with shortness of breath and hypoxia secondary to COPD exacerbation with right middle lobe pneumonia. Patient did well during the course of her stay. Patient evaluated by pulmonology. At discharge the patient will continue with Levaquin 750 mg 1 pill daily for 7 days. Patient will also be provided prednisone 20 mg 1 pill twice daily for 5 days then 1 pill once daily for 5 days. Patient will continue with her COPD medication including Advair 1 puff twice daily and albuterol 1 unit dose 3 times a day as needed for shortness of breath. Prior to discharge home oxygen will be arranged to maintain sats above 90%. Recommendations for the patient follow up with pulmonology in 1 week to follow up this hospitalization. Recommendation is to recheck chest x-ray in 2- 4 weeks to monitor resolution. Tobacco cessation education will be provided. 3. Patient has hypertension. Medications have been adjusted. At discharge Norvasc will be decreased to 5 mg daily. Metoprolol has been increased to 50 mg 1 pill twice daily. Recommendation is to maintain blood pressures less 150/ 80. Further adjustment can be done by her PCP. 4. Patient has hyperlipidemia. She will continue with Lopid. 5. Patient has GERD. Recommendation is to discontinue Prilosec and change to Protonix 40 mg 1 pill once daily. 6. Patient has hypothyroidism. She will continue with Levoxyl 50 mcg daily. 7. Patient has restless leg syndrome. She will continue with Requip. 8. Patient has depression with anxiety. Patient will continue with Cymbalta and Seroquel. I will recommend to discontinue baclofen and trazodone at this time since she did well off medication during her stay. Further adjustment can be done by her PCP or psychiatry. 9. Patient will continue with aspirin 81 mg daily. 10. Tobacco cessation education will be provided and recommended. 11. Patient presented with acute renal injury likely from dehydration. This has resolved. Recommendation is to recheck lab-BMP in 1 week to monitor progress. Diet: AHA Activity: Fall precautions Time spent managing pt's care (in minutes): 55
== END 2017-11-01 15:26 | disposition home health service (06) | DRG 190 ==
LOC: ER 16:56 → ERHOLD 17:53 → 4TH 19:24
PROVIDERS: ADMIT Family Medicine; ATTEND Family Medicine
DX: J44.0 Chronic obstructive pulmonary disease with (acute) lower respiratory infection (principal); J18.9 Pneumonia, unspecified organism; N17.9 Acute kidney failure, unspecified; J44.1 Chronic obstructive pulmonary disease with (acute) exacerbation; R09.02 Hypoxemia; E78.5 Hyperlipidemia, unspecified; K21.9 Gastro-esophageal reflux disease without esophagitis; E03.9 Hypothyroidism, unspecified; G25.81 Restless legs syndrome; F41.8 Other specified anxiety disorders; I12.9 Hypertensive chronic kidney disease with stage 1 through stage 4 chronic kidney disease, or unspecified chronic kidney disease; N18.2 Chronic kidney disease, stage 2 (mild); E86.0 Dehydration; G47.00 Insomnia, unspecified; F17.210 Nicotine dependence, cigarettes, uncomplicated; Z86.73 Personal history of transient ischemic attack (TIA), and cerebral infarction without residual deficits
CPT/HCPCS: 36415; 71045; 71046; 80048; 80076; 80307; 81003; 82550; 82553; 82805; 83690; 83735; 83880; 84145; 84443; 84484; 85025; 85610; 85730; 87040; 87086; 87088; 87804; 93005; 93306; 94640; 96365; 96375; 99285; J0456; J0696; J1650; J2920; J2930; J7030; J7605

== ENCOUNTER 2017-12-13 15:19 | Observation (INO) | payer OTHER ==
[2017-12-13 15:47] LABS: Arterial Blood Carboxyhemoglob 1.2 % (0-1.5); Blood Gas Oxyhemoglobin 87.1 % (94-97); Blood O2 Saturation 88.9 % (92-98.5)
[2017-12-13 16:17] LABS: Urine Bacteria <20 /HPF (<20); Urine Culture Reflex Order NOT NEEDED; Urine RBC <5 /HPF (NONE SEEN)
--- NOTE | 2017-12-13 16:17 | RAD REPORT ---
EXAM DESCRIPTION: RAD - Chest Single View - 12/13/2017 4:11 pm CLINICAL HISTORY: DYSPNEA Chest pain. COMPARISON: Chest Pa And Lat (2 Views) dated 10/31/2017; Chest Single View dated 10/30/2017; Chest Pa An d Lat (2 Views) dated 07/24/2017; Chest Single View dated 02/02/2017 FINDINGS: Portable technique limits examination quality. The lungs are emphysematous but grossly clear. The heart is normal in size. No displaced fractures.Ao rtic atherosclerosis is noted with a stent in the superior mediastinum. Trace left pleural fluid. IMPRESSION: COPD with trace left pleural fluid.
[2017-12-13 16:26] LABS: Barbiturates NEGATIVE (NEGATIVE); Benzodiazepines NEGATIVE (NEGATIVE); Cocaine NEGATIVE (NEGATIVE); METHAMPHETAM NEGATIVE (NEGATIVE); Methadone NEGATIVE (NEGATIVE); Opiates NEGATIVE (NEGATIVE); Phencyclidine NEGATIVE (NEGATIVE); THC Cannibis NEGATIVE (NEGATIVE)
[2017-12-13 17:26] LABS: Absolute Monocytes 0.4 K/uL (0.1-1.3); Absolute Neutrophil 5.7 K/uL (1.8-8.0); Basophils % 0.5 % (0-1.3); Eosinophils % 0.7 % (0-4.4); Hematocrit 43.1 % (36.0-45.0); MCH 29.4 pg (27.0-35.0); MCV 89.7 fL (80-100); MPV 9.9 fL (7.6-11.3)
[2017-12-13 17:39] LABS: Protime INR 0.97
[2017-12-13 17:59] LABS: ALT/SGPT 8 U/L (12-78); AST/SGOT 15 U/L (15-37); Albumin 3.5 g/dL (3.4-5.0); Alkaline Phosphatase 92 U/L (45-117); BUN Blood Urea Nitrogen 24 mg/dL (7-18); Bicarbonate 24 mmol/L (21-32); Bilirubin Direct < 0.1 mg/dL (0-0.2); Bilirubin Total 0.2 mg/dL (0.2-1.0); Creatine Phosphokinase 27 U/L (26-192); Glucose Level 94 mg/dL (74-106); Potassium 4.1 mmol/L (3.5-5.1); Protein, Total 7.9 g/dL (6.4-8.2); Sodium Level 140 mmol/L (136-145); Thyroid Stimulating Hormone 1.81 uIU/mL (0.36-3.74)
[2017-12-13 18:09] LABS: Urine Blood NEGATIVE (NEG); Urine Glucose NEGATIVE (NEG); Urine Protein NEGATIVE (NEG); Urine Specific Gravity 1.015 (1.005-1.030); Urine pH 6.5 (5.0-7.0)
--- NOTE | 2017-12-13 18:35 | RAD REPORT ---
EXAM DESCRIPTION: CT - Head Brain Wo Cont - 12/13/2017 6:29 pm CLINICAL HISTORY: Transient alteration of awareness, drowsiness, mental status change COMPARISON: CT head April 2016 TECHNIQUE: Axial 5 mm thick images of the head were obtained without IV contrast. All CT scans are performed using dose optimization technique as appropriate and may include automated exposure control or mA/KV adjustment according to patient size. FINDINGS: No intracranial hemorrhage, mass, edema or shift of mid-line structures. No acute cortical based infarction. No cortical edema or sulcal effacement. No significant atrophy changes for age. Th ere is patchy chronic ischemic change in the cerebral white matter. This is similar to comparison. Ph ysiologic and arterial calcifications are present. No abnormal extra-axial fluid collections. Ventric les are normal. Mastoid air cells and visualized portions of the paranasal sinuses are clear. No acute bony findings. IMPRESSION: Negative noncontrast CT head examination for acute finding. Patchy chronic ischemic changes are similar to the comparison study.
--- NOTE | 2017-12-13 18:40 | ER ---
Nurse's Notes [facility] Name: Louise Raines Age: 67 yrs Sex: Female : 1950 Arrival Date: 12/13/2017 Time: 15:19 Bed 3 Private MD: RAHEEM SANTOS Diagnosis: Altered mental status, unspecified;Hypothyroidism, unspecified;Acidosis Presentation: 12/13 15:28 Presenting complaint: Child states: Daughter states, she lives with my aunt, she had a sg Doctors appointment today but she wouldn't wake up to go to the appointment, pt daughter stated she did this before where she was just real lethargic and not responsive, pt is prescribed home o2 which she has not been wearing for about a week or two. Transition of care: patient was not received from another setting of care. Risk Assessment: Do you want to hurt yourself or someone else? Patient reports no desire to harm self or others. Initial Sepsis Screen: Does the patient meet any 2 criteria?. Care prior to arrival: None. 15:28 Method Of Arrival: Wheelchair 15:28 Acuity: JAIME 2 15:30 Onset of symptoms was December 13, 2017. Initial Sepsis Screen: Does the patient have a sv suspected source of infection? No. Patient's initial sepsis screen is negative. Triage Assessment: 15:20 General: Appears distressed, ill, slender, well groomed, well developed, well sg nourished, Behavior is unresponsive. Historical: - Allergies: 15:31 Adhesives; sg 15:31 ambien; sg 15:31 Iodine; sg - Home Meds: 15:40 levothyroxine 50 mcg tab 1 tab once daily [Active]; trazodone 150 mg oral tab nightly sv [Active]; metoprolol tartrate 50 mg Oral tab 1 tab 2 times per day [Active]; ropinirole 0.5 mg Oral tab 1 tab 3 times per day [Active]; Lopid 600 mg Oral tab 1 tab 2 times per day [Active]; amlodipine 5 mg oral tab [Active]; Seroquel 200 mg Oral tab 1 tab [Active]; duloxetine 60 mg oral cpDR once daily [Active]; aspirin 81 mg Oral TbEC 1 tab once daily [Active]; Vitamin D Oral 1000 unit [Active]; Advair Diskus 100-50 mcg/dose Inhl dsdv 1 puff 2 times per day [Active]; albuterol sulfate 2.5 mg /3 mL (0.083 %) Inhl nebu every 4 hours [Active]; Protonix 40 mg Oral TbEC 1 tab once daily [Active]; - PMHx: 15:31 COPD; Hypertension; Hypothyroidism; sg 15:40 ulcerative colitis; sv - PSHx: 15:31 Hysterectomy; Cholecystectomy; colon resection; stent in arm; aortic bypass (in pelvis);sg 15:40 ABF leg and aortic replacement; stent in left arm; sv - Immunization history:: Adult Immunizations unknown. - Social history:: Smoking status: unknown. - Ebola Screening: : Patient negative for fever greater than or equal to 101.5 degrees Fahrenheit, and additional compatible Ebola Virus Disease symptoms Patient denies exposure to infectious person Patient denies travel to an Ebola-affected area in the 21 days before illness onset No symptoms or risks identified at this time. Screenin:59 Abuse screen: Denies threats or abuse. Denies injuries from another. Nutritional sv screening: No deficits noted. Tuberculosis screening: No symptoms or risk factors identified. Fall Risk No fall in past 12 months (0 pts). No secondary diagnosis (0 pts). IV access (20 points). Ambulatory Aid- None/Bed Rest/Nurse Assist (0 pts). Gait- Weak (10 pts.). Mental Status- Overestimates/Forgets Limitations (15 pts.). Total Bernard Fall Scale indicates High Risk Score (45 or more points). Fall prevention measures have been instituted. Side Rails Up X 2 Placed Close to Nursing Station Frequent Obs/Assessments Occuring Family Present and informed to notify staff if the need to leave the bedside As available patient and family educated on Fall Prevention Program and Strategies. Assessment: 15:30 General: Appears in no apparent distress. slender, malnourished, Behavior is sv cooperative, drowsy. General: Daughter reports she had gone to see her mother because her sister that she lives with reported that she hadn't woken up yet and she was concerned. Daughter stated that she was lethargic and was barely talking to her. Daughter stated that last time she had pneumonia.. Pain: Unable to use pain scale. Patient is disoriented. FLACC scale score is 0 out of 10. Neuro: Level of Consciousness is lethargic, Oriented to none Weakness in bilateral arm(s) leg(s) Speech. Cardiovascular: Pulses are 2+ in right radial artery and left radial artery. Respiratory: Airway is patent Respiratory effort is even, unlabored, Respiratory pattern is regular, symmetrical, Parent/caregiver reports the patient having she hasn't been using her oxygen at home for about 2 weeks. GI: Abdomen is flat, non-distended, Abd is soft and non tender X 4 quads. Derm: Skin is normal, Skin temperature is cool. Musculoskeletal: Range of motion: intact in all extremities. 16:30 Reassessment: Patient appears in no apparent distress at this time. Patient and/or ph family updated on plan of care and expected duration. Pain level reassessed. Pt awake, oriented to none, respirations even and unlabored, family at bedside. 17:30 Reassessment: Patient appears in no apparent distress at this time. No changes from ph previously documented assessment. Patient and/or family updated on plan of care and expected duration. Pain level reassessed. 18:21 Reassessment: Patient appears in no apparent distress at this time. No changes from ph previously documented assessment. Patient and/or family updated on plan of care and expected duration. Pain level reassessed. ERP at bedside to speak w/ pt and family. Vital Signs: 15:34 BP 148 / 72; Pulse 76; Resp 14; Temp 95(A); Pulse Ox 97% ; sv 16:04 Temp 97.7(C); sv 16:30 BP 154 / 78; Pulse 79; Resp 18; Temp 97.7(C); Pulse Ox 100% on 2 lpm NC; ph 17:30 BP 152 / 82; Pulse 78; Resp 16; Temp 97.8(C); Pulse Ox 99% on 2 lpm NC; ph 18:25 BP 149 / 72; Pulse 78; Resp 18; Temp 98.0(C); Pulse Ox 99% on 2 lpm NC; ph 19:34 BP 143 / 83; Pulse 91; Resp 18; Temp 98.7(C); Pulse Ox 97% 2 lpm ; Pain 0/10; mg2 Daquan Coma Score: 15:30 Eye Response: to pain(2). Verbal Response: confused(4). Motor Response: withdraws from sv pain(4). Total: 10. 16:01 Eye Response: to voice(3). Verbal Response: confused(4). Motor Response: withdraws from sv pain(4). Total: 11. 16:30 Eye Response: spontaneous(4). Verbal Response: none(1). Motor Response: obeys ph commands(6). Total: 11. ED Course: 15:19 Patient arrived in ED. sb2 15:20 RAHEEM SANTOS is Private Physician. sb2 15:25 Initial lab(s) drawn, by me, sent to lab. Inserted saline lock: 22 gauge in right sv forearm, using aseptic technique. ,using aseptic technique. diffusics Blood collected. Flushed right forearm with 5 ml normal saline. 15:28 Arm band placed on. sg 15:30 Triage completed. sg 15:30 Patient has correct armband on for positive identification. Placed in gown. Bed in low sv position. Side rails up X2. Adult w/ patient. quality assurance monitor on. Pulse ox on. NIBP on. Door closed. Warm blanket given. Head of bed elevated. 15:32 Syed Gallego MD is Attending Physician. rn 15:34 Marcia Castorena, ADWOA is Primary Nurse. sv 15:36 Robert Rasmussen PA is PHCP. jr8 15:58 Guzman cath inserted, using sterile technique, 16 Fr., by ok, balloon inflated, to sv gravity drainage, urine specimen collected. other Criticore returned clear yellow urine. 16:10 Chest Single View XRAY In Process Unspecified. EDMS 16:14 EKG done, by pattern technician. reviewed by Robert ROA. 3 16:29 Primary Nurse role handed off by Marcia Castorena, ADWOA sv 16:29 Report given to Kelly ORONA. sv 16:53 First set of blood cultures drawn by me. dh3 17:14 Lab(s) recollected, by me, sent to lab. Inserted saline lock: 24 gauge in right dh3 antecubital area, using aseptic technique. 17:14 Second set of blood cultures drawn by ok. 3 18:21 Rowan Newman, RN is Primary Nurse. ph 18:[address] vr 18:29 Head Brain Wo Cont CT In Process Unspecified. EDMS 18:29 CT completed. Patient tolerated procedure well. Patient moved back from CT. nj 18:40 Shahram Ward MD is Hospitalizing Provider. jr8 20:00 No provider procedures requiring assistance completed. Patient admitted, IV remains in mg2 place. Administered Medications: No medications were administered Point of Care Testing: Blood Glucose: 15:30 Blood Glucose: 101 mg/dL; sv Ranges: Outcome: 18:40 Decision to Hospitalize by Provider. jr8 19:58 Admitted to Med/surg accompanied by tech, via stretcher, room 225, with chart, Report mg2 called to ADWOA Jay 20:00 Condition: stable mg2 20:00 Instructed on the need for admit, Demonstrated understanding of instructions. 20:01 Patient left the ED. [facility] [place] Signatures: Dispatcher [employer] EDMS Marcia Castorena, RN Zhou Esteban RN RN sg Nieto, Roman, MD MD rn Davis, Victoria vr Roszak, Josh, PA PA jr8 Rowan Newman RN RN Jovanny, Ana Manjarrez 3 Doris Kinsey 2 Sajan Feldman RN RN [facility] [place] Shadia Villareal 3
--- NOTE | 2017-12-13 18:41 | EDPHYS ---
Physician Documentation [facility] Name: Louise Raines Age: 67 yrs Sex: Female : 1950 Arrival Date: 12/13/2017 Time: 15:19 Bed 3 Private MD: RAHEEM SANTOS ED Physician Syed Gallego HPI: 12/13 15:53 This 67 yrs old Female presents to ER via Wheelchair with complaints of jr8 General Weakness/AMS. 15:53 The patient presents with decreased mental status, decreased responsiveness. Onset: The jr8 symptoms/episode began/occurred acutely, today. Possible causes: unknown. Associated signs and symptoms: The patient has no apparent associated signs or symptoms. Current symptoms: In the emergency department the patient's symptoms are unchanged from the initial presentation. Patient's baseline: Neuro: alert and fully oriented, Motor: no deficits, Ambulation: walks without assistance, Speech: normal. The patient has experienced a previous episode. The patient has not recently seen a physician. Daughter stated that her sister who lives with her had noticed that the patient was much more sleepy then normal. Hard to arouse but would talk back to her. Stated that the sister had gone out for something and when she came back noticed patient was still sleeping and minimally responsive. Had called the daughter at that time. Patient was brought to the hospital at that time. Stated that she has only done this once before and ended up having pneumonia . Historical: - Allergies: 15:31 Adhesives; sg 15:31 ambien; sg 15:31 Iodine; sg - Home Meds: 15:40 levothyroxine 50 mcg tab 1 tab once daily [Active]; trazodone 150 mg oral tab nightly sv [Active]; metoprolol tartrate 50 mg Oral tab 1 tab 2 times per day [Active]; ropinirole 0.5 mg Oral tab 1 tab 3 times per day [Active]; Lopid 600 mg Oral tab 1 tab 2 times per day [Active]; amlodipine 5 mg oral tab [Active]; Seroquel 200 mg Oral tab 1 tab [Active]; duloxetine 60 mg oral cpDR once daily [Active]; aspirin 81 mg Oral TbEC 1 tab once daily [Active]; Vitamin D Oral 1000 unit [Active]; Advair Diskus 100-50 mcg/dose Inhl dsdv 1 puff 2 times per day [Active]; albuterol sulfate 2.5 mg /3 mL (0.083 %) Inhl nebu every 4 hours [Active]; Protonix 40 mg Oral TbEC 1 tab once daily [Active]; - PMHx: 15:31 COPD; Hypertension; Hypothyroidism; sg 15:40 ulcerative colitis; sv - PSHx: 15:31 Hysterectomy; Cholecystectomy; colon resection; stent in arm; aortic bypass (in pelvis);sg 15:40 ABF leg and aortic replacement; stent in left arm; sv - Immunization history:: Adult Immunizations unknown. - Social history:: Smoking status: unknown. - Ebola Screening: : Patient negative for fever greater than or equal to 101.5 degrees Fahrenheit, and additional compatible Ebola Virus Disease symptoms Patient denies exposure to infectious person Patient denies travel to an Ebola-affected area in the 21 days before illness onset No symptoms or risks identified at this time. ROS: 15:53 Unable to obtain ROS due to altered mental status. jr8 Exam: 15:53 Eyes: Pupils equal round and reactive to light, extra-ocular motions intact. Lids and jr8 lashes normal. Conjunctiva and sclera are non-icteric and not injected. Cornea within normal limits. Periorbital areas with no swelling, redness, or edema. ENT: Nares patent. No nasal discharge, no septal abnormalities noted. Tympanic membranes are normal and external auditory canals are clear. Oropharynx with no redness, swelling, or masses, exudates, or evidence of obstruction, uvula midline. Mucous membranes moist. Neck: Trachea midline, no thyromegaly or masses palpated, and no cervical lymphadenopathy. Supple, full range of motion without nuchal rigidity, or vertebral point tenderness. No Meningismus. Cardiovascular: Regular rate and rhythm with a normal S1 and S2. No gallops, murmurs, or rubs. Normal PMI, no JVD. No pulse deficits. Respiratory: Lungs have equal breath sounds bilaterally, clear to auscultation and percussion. No rales, rhonchi or wheezes noted. No increased work of breathing, no retractions or nasal flaring. Abdomen/GI: Soft, non-tender, with normal bowel sounds. No distension or tympany. No guarding or rebound. No evidence of tenderness throughout. Back: No spinal tenderness. No costovertebral tenderness. Full range of motion. Skin: Warm, dry with normal turgor. Normal color with no rashes, no lesions, and no evidence of cellulitis. MS/ Extremity: Pulses equal, no cyanosis. Neurovascular intact. Full, normal range of motion. 15:53 Neuro: Orientation: to person, Mentation: able to follow commands, slow to respond, Cranial nerves: CN I not tested, CN II- XII are normal as tested, extraocular movements are intact, Speech is slowed, Tongue strength is normal, Motor: moves all fours, Sensation: no obvious gross deficits, seizure activity, is not displayed by the patient, Abnormal movements: there are no abnormal movements. Vital Signs: 15:34 BP 148 / 72; Pulse 76; Resp 14; Temp 95(A); Pulse Ox 97% ; sv 16:04 Temp 97.7(C); sv 16:30 BP 154 / 78; Pulse 79; Resp 18; Temp 97.7(C); Pulse Ox 100% on 2 lpm NC; ph 17:30 BP 152 / 82; Pulse 78; Resp 16; Temp 97.8(C); Pulse Ox 99% on 2 lpm NC; ph 18:25 BP 149 / 72; Pulse 78; Resp 18; Temp 98.0(C); Pulse Ox 99% on 2 lpm NC; ph 19:34 BP 143 / 83; Pulse 91; Resp 18; Temp 98.7(C); Pulse Ox 97% 2 lpm ; Pain 0/10; mg2 Daquan Coma Score: 15:30 Eye Response: to pain(2). Verbal Response: confused(4). Motor Response: withdraws from sv pain(4). Total: 10. 16:01 Eye Response: to voice(3). Verbal Response: confused(4). Motor Response: withdraws from sv pain(4). Total: 11. 16:30 Eye Response: spontaneous(4). Verbal Response: none(1). Motor Response: obeys ph commands(6). Total: 11. MDM: 15:32 Patient medically screened. rn 18:39 Data reviewed: vital signs, nurses notes, lab test result(s), EKG, radiologic studies, jr8 CT scan, plain films, and as a result, I will admit patient. Data interpreted: Pulse oximetry: on room air is 96 %. Interpretation: normal. Counseling: I had a detailed discussion with the patient and/or guardian regarding: the historical points, exam findings, and any diagnostic results supporting the discharge/admit diagnosis, lab results, radiology results, the need for further work-up and treatment in the hospital. Physician consultation: Shahram Ward MD was called at 18:39, was contacted at 18:39, regarding admission, to the telemetry unit. consult, patient's condition, and will see patient. 12/13 15:34 Order name: ABG; Complete Time: 16:18 12/13 15:37 Order name: Urine Microscopic Only; Complete Time: 16:18 [facility] 12/13 15:37 Order name: Basic Metabolic Panel; Complete Time: 18:00 [facility] 12/13 15:37 Order name: Blood Culture Adult (2) [facility] 12/13 15:37 Order name: CBC with Diff; Complete Time: 17:38 [facility] 12/13 15:37 Order name: CPK; Complete Time: 18:00 [facility] 12/13 15:37 Order name: Lactate; Complete Time: 17:59 [facility] 12/13 15:37 Order name: LFT's; Complete Time: 18:00 [facility] 12/13 15:37 Order name: Procalcitonin; Complete Time: 18:00 [facility] 12/13 15:37 Order name: Protime (+inr); Complete Time: 17:46 [facility] 12/13 15:37 Order name: Troponin (emerg Dept Use Only); Complete Time: 17:46 [facility] 12/13 15:37 Order name: TSH; Complete Time: 18:00 [facility] 12/13 15:37 Order name: T4 Free; Complete Time: 18:00 [facility] 12/13 15:37 Order name: Cath; Complete Time: 15:58 [facility] 12/13 15:37 Order name: Chest Single View XRAY; Complete Time: 16:18 [facility] 12/13 15:37 Order name: Accucheck; Complete Time: 15:58 12/13 15:37 Order name: Cardiac monitoring; Complete Time: 15:58 12/13 15:37 Order name: EKG - Nurse/Tech; Complete Time: 16:16 12/13 15:37 Order name: IV Saline Lock - Large Bore; Complete Time: 15:58 [facility] 12/13 15:37 Order name: Labs collected and sent; Complete Time: 15:58 [facility] 12/13 15:37 Order name: O2 Per Protocol; Complete Time: 15:58 [facility] 12/13 15:37 Order name: O2 Sat Monitoring; Complete Time: 15:58 [facility] 12/13 15:37 Order name: Urine Dipstick-Ancillary (obtain specimen); Complete Time: 15:58 [facility] 12/13 15:37 Order name: AMMONIA; Complete Time: 17:46 [facility] 12/13 15:52 Order name: UDS; Complete Time: 16:27 [facility] 12/13 16:12 Order name: Urine Dipstick--Ancillary (enter results); Complete Time: 18:14 [facility] 12/13 17:12 Order name: EKG Electrocardiogram [facility] 12/13 18:20 Order name: Head Brain Wo Cont CT; Complete Time: 18:36 ph Administered Medications: No medications were administered Point of Care Testing: Blood Glucose: 15:30 Blood Glucose: 101 mg/dL; sv Ranges: Critical Glucose Levels:Adult <50 mg/dl or >400 mg/dl <40 mg/dl or >180 mg/dl Disposition: 12/14 07:11 Co-signature as Attending Physician, Syed Gallego MD. rn Disposition: 12/13/17 18:40 Hospitalization ordered by Shahram Ward for Observation. Preliminary diagnosis are Altered mental status, unspecified, Hypothyroidism, unspecified, Acidosis. - Bed requested for Telemetry/MedSurg (observation). - Status is Observation. mg2 - Condition is Stable. - Problem is new. - Symptoms are unchanged. UTI on Admission? No Signatures: Dispatcher [employer] EDAL Marcia Castorena RN RN sv Webb, Martha, RN RN Zhou Echavarria RN RN sg Nieto, Roman, MD MD rn Roszak, Josh, PA PA jr8 Sajan Feldman RN RN mg2 Corrections: (The following items were deleted from the chart) 12/13 16:36 15:38 Arterial Blood Gas+[id number].LAB.BRZ ordered. EDAL EDAL 19:31 18:40 Hospitalization Ordered by Shahram Ward MD for Observation. Preliminary diagnosis mw is Altered mental status, unspecified; Hypothyroidism, unspecified; Acidosis. Bed requested for Telemetry/MedSurg (observation). Status is Observation. Condition is Stable. Problem is new. Symptoms are unchanged. UTI on Admission? No. jr8 20:01 19:31 12/13/2017 18:40 Hospitalization Ordered by Shahram Ward MD for Observation. mg2 Preliminary diagnosis is Altered mental status, unspecified; Hypothyroidism, unspecified; Acidosis. Bed requested for Telemetry/MedSurg (observation). Status is Observation. Condition is Stable. Problem is new. Symptoms are unchanged. UTI on Admission? No. mw
[2017-12-13] MEDS ORDERED: ONDANSETRON 4 MG/2 ML VIAL IV PRN (21:09)
[2017-12-13] MEDS: NA CHLORIDE 0.9% 1,000 ML IV SCH (22:45)
[2017-12-14 05:02] LABS: Absolute Lymphocytes (CBC) 1.5 K/uL (0.7-4.9); Absolute Monocytes 0.6 K/uL (0.1-1.3); Absolute Neutrophil 3.5 K/uL (1.8-8.0); Basophils % 0.4 % (0-1.3); Eosinophils % 1.4 % (0-4.4); Hematocrit 39.8 % (36.0-45.0); Lymphocytes % 25.9 % (15.3-44.8); MCH 28.9 pg (27.0-35.0); MCV 90.3 fL (80-100); MPV 10.1 fL (7.6-11.3); Monocytes % 9.8 % (3.3-12.3); RBC Red Blood Cell Count 4.41 M/uL (3.86-4.86)
[2017-12-14 05:42] LABS: Potassium 3.9 mmol/L (3.5-5.1)
--- NOTE | 2017-12-14 06:49 | EKG ---
Test Date: 2017-12-13 Test Time: 16:05:48 Sales Vice President: JONG MEASUREMENT RESULTS: Intervals: Rate: 79 MI: 124 QRSD: 78 QT: 408 QTc: 467 Aiken: P: 80 MI: 124 QRS: 62 T: 67 INTERPRETIVE STATEMENTS: Normal sinus rhythm Biatrial enlargement Left ventricular hypertrophy Nonspecific ST abnormality Abnormal ECG Compared to ECG 10/30/2017 17:19:49 ST (T wave) deviation now present Short MI interval no longer present Early repolarization no longer present Electronically Signed On 12-14-17 06:48:30 CDT by Bryan Chowdhury
[2017-12-14] MEDS: NA CHLORIDE 0.9% 1,000 ML IV SCH ×2 (09:01→17:44)
[2017-12-14] MEDS ORDERED: ALBUTEROL 2.5 MG/3 ML NEB SOL IH PRN (10:40)
--- NOTE | 2017-12-14 10:55 | P.HP ---
Certification for Inpatient Patient admitted to: Observation With expected LOS: <2 Midnights Patient will require the following post-hospital care: None Practitioner: I am a practitioner with admitting privileges, knowledge of patient current condition, hospital course, and medical plan of care. Services: Services provided to patient in accordance with Admission requirements found in Title 42 Section 412.3 of the Code of Federal Regulations Patient History Date of Service: 12/14/17 Primary Care Provider: Kaylene Polo Reason for admission: altered mental status. History of Present Illness: Patient is here as her daughter was not able to wake her up. She has no CT signs of stroke. Was walking up but not at baseline so was admitted for observation. This morning she complaints of no pain fever or headaches. her daughter states she is better but not at her baseline. Allergies Iodine and Iodide Containing Produc Allergy (Unknown, Verified 10/30/17 22:35) Hives/Rash adhesive tape Allergy (Verified 10/30/17 22:35) Itching Iodinated Contrast- Oral and IV Dye Allergy (Verified 12/13/17 23:45) Anaphylaxis zolpidem [From Ambien] Allergy (Verified 10/30/17 22:35) Anaphylaxis Adhesives Allergy (Uncoded 12/13/17 20:04) Unknown Home Medications: Aspirin [Aspirin EC 81 MG] 81 mg PO DAILY 12/13/17 Cholecalciferol (Vitamin D3) [Vitamin D 1000 Iu Tab*] 1 tab PO DAILY 12/13/17 Fluticasone/Salmeterol [Advair 250-50 Diskus] 1 puff IH BID 12/13/17 Gemfibrozil [Lopid*] 600 mg PO BID 12/13/17 Pantoprazole [Protonix Tab*] 40 mg PO DAILY 12/13/17 Quetiapine [Seroquel*] 200 mg PO BEDTIME 12/13/17 RX: Albuterol Neb [Proventil 0.083% Neb Soln] 1 aer IH Q4H PRN 12/13/17 RX: Amlodipine [Norvasc*] 5 mg PO DAILY 12/13/17 RX: Duloxetine [Cymbalta *] 60 mg PO DAILY 12/13/17 RX: Levothyroxine [Synthroid*] 50 mcg PO DAILY 12/13/17 RX: Metoprolol Tartrate [Lopressor*] 50 mg PO BID 12/13/17 RX: Ropinirole HCl [Requip] 0.5 mg PO TID 12/13/17 RX: Trazodone [Desyrel*] 150 mg PO BEDTIME 12/13/17 - Past Medical/Surgical History Has patient received pneumonia vaccine in the past: Yes Diabetic: No -: COPD, oxygen-dependent -: Hypertension -: History of ulcerative colitis -: Arthritis -: GERD -: Hypothyroidism -: Depression with anxiety -: Restless leg syndrome -: History CVA -: Chronic renal disease -: Tobacco abuse -: ABF leg aortic replacement -: Cholecystectomy -: Hysterectomy -: Stent -: Colorectal surgery Psychosocial/ Personal History: The patient lives with her sister. She is a . She has 1 child. - Family History Mother -: Hypertension Father Notes: committed suicide - Social History Smoking Status: Current every day smoker Alcohol use: No CD- Drugs: No Caffeine use: Yes Place of Residence: Home Review of Systems 10-point ROS is otherwise unremarkable Physical Examination - Vital Signs Temperature: 99.3 F Blood Pressure: 150/80 Pulse: 91 Respirations: 18 Pulse Ox (%): 96 - Physical Exam General: Alert, In no apparent distress HEENT: Atraumatic, PERRLA, Mucous membr. moist/pink, EOMI, Sclerae nonicteric Neck: Supple, 2+ carotid pulse no bruit, No LAD, Without JVD or thyroid abnormality Respiratory: Clear to auscultation bilaterally, Normal air movement Cardiovascular: Regular rate/rhythm, Normal S1 S2 Gastrointestinal: Normal bowel sounds, No tenderness Musculoskeletal: No tenderness Integumentary: No rashes Neurological: Normal gait, Normal speech, Normal strength at 5/5 x4 extr, Normal tone, Normal affect Lymphatics: No axilla or inguinal lymphadenopathy - Studies Laboratory Data (last 24 hrs) 12/13/17 17:14: PT 11.4, INR 0.97 12/13/17 17:14: WBC 7.2, Hgb 14.1, Hct 43.1, Plt Count 155 12/13/17 17:14: Sodium 140, Potassium 4.1, BUN 24 H, Creatinine 1.40 H, Glucose 94, Total Bilirubin 0.2, AST 15, ALT 8 L, Alkaline Phosphatase 92 Microbiology Data (last 24 hrs): 12/13/17 17:14 Blood - Blood Anaerobic Blood Culture - Final 12/13/17 16:53 Blood - Blood Anaerobic Blood Culture - Final Assessment and Plan - Problems (Diagnosis) (1) Altered mental status Onset Date: 12/14/17 Current Visit: Yes Status: Acute Plan: Patient is not using her oxygen. Also using tramadol So multiple reasons. Will have nursing remove the russell and ambutlate the patient. She is already eating. Will see if she continues to improve. We can discharge her home Qualifiers: Altered mental status type: delirium Qualified Code(s): R41.0 - Disorientation, unspecified (2) Chronic obstructive pulmonary disease Onset Date: 08/22/16 Current Visit: No Status: Acute Plan: Stable copd. Continue her home medications. Will see if she needs oxygen or tobacco councilling. Will have her follow up With Mrs Polo Qualifiers: COPD type: COPD with acute exacerbation Qualified Code(s): J44.1 - Chronic obstructive pulmonary disease with (acute) exacerbation (3) Hyperlipidemia Onset Date: 10/31/17 Current Visit: No Status: Chronic Qualifiers: Hyperlipidemia type: unspecified Qualified Code(s): E78.5 - Hyperlipidemia , unspecified (4) Hypertension Onset Date: 08/22/16 Current Visit: No Status: Chronic Plan: stable continue home medications Qualifiers: Hypertension type: essential hypertension Qualified Code(s): I10 - Essential (primary) hypertension Discharge Plan: Home Plan to discharge in: 24 Hours - Advance Directives Does patient have a Living Will: No Does patient have a Durable POA for Healthcare: No - Code Status/Comfort Care Code Status Assessed: No Code Status: Full Code Physician Review: Patient Assessed, Agree with Above Assessment and Plan Critical Care: No Time Spent Managing Pts Care (In Minutes): 45
[2017-12-14] MEDS: ENOXAPARIN 40 MG/0.4 ML SQ SCH (12:27)
[2017-12-14] MEDS: ROPINIROLE HCL 0.25 MG TAB PO SCH ×2 (12:28→20:27)
[2017-12-14] MEDS: GEMFIBROZIL 600 MG TAB PO SCH (20:27)
[2017-12-14] MEDS ORDERED: TRAMADOL HCL 50 MG TAB PO ONE (20:40)
[2017-12-14] MEDS ORDERED: QUETIAPINE 100MG TAB PO SCH (21:00)
[2017-12-14] MEDS ORDERED: HOME MED 1 EA UNK (Fluticasone/Salmeterol [Advair 250-50 Diskus] 1 PUFF) IH SCH (21:00)
[2017-12-14] MEDS: ACETAMINOPHEN 500 MG TAB PO PRN (21:32)
[2017-12-15] MEDS: NA CHLORIDE 0.9% 1,000 ML IV SCH ×2 (04:18→13:09)
[2017-12-15] MEDS ORDERED: LEVOTHYROXINE SOD 0.05 MG TABLET PO SCH (06:30)
[2017-12-15] MEDS ORDERED: PANTOPRAZOLE 40MG TABLET PO SCH ×2 (06:30→09:00)
[2017-12-15] MEDS: ENOXAPARIN 40 MG/0.4 ML SQ SCH (08:18)
[2017-12-15] MEDS: GEMFIBROZIL 600 MG TAB PO SCH (08:19)
[2017-12-15] MEDS: ROPINIROLE HCL 0.25 MG TAB PO SCH ×2 (08:19→14:00)
[2017-12-15] MEDS ORDERED: AMLODIPINE 5 MG TAB PO SCH (09:00)
[2017-12-15] MEDS ORDERED: DULOXETINE 30 MG CAP PO SCH (09:00)
[2017-12-15] MEDS ORDERED: VITAMIN D 1000 UNIT TAB PO SCH (09:00)
[2017-12-15] MEDS ORDERED: ASPIRIN EC 81 MG TAB PO SCH (09:00)
[2017-12-15] MEDS: ACETAMINOPHEN 500 MG TAB PO PRN (09:45)
--- NOTE | 2017-12-15 12:35 | P.DS ---
Admission Date: 12/13/17 Discharge Date: 12/15/17 Primary Care Provider: Kaylene Polo Disposition: ROUTINE DISCHARGE Discharge Condition: GOOD Reason for Admission: altered mental status. - Problems (1) Altered mental status Onset Date: 12/14/17 Current Visit: Yes Status: Acute Qualifiers: Altered mental status type: delirium Qualified Code(s): R41.0 - Disorientation, unspecified (2) Chronic obstructive pulmonary disease Onset Date: 08/22/16 Current Visit: No Status: Acute Qualifiers: COPD type: COPD with acute exacerbation Qualified Code(s): J44.1 - Chronic obstructive pulmonary disease with (acute) exacerbation (3) Hyperlipidemia Onset Date: 10/31/17 Current Visit: No Status: Chronic Qualifiers: Hyperlipidemia type: unspecified Qualified Code(s): E78.5 - Hyperlipidemia , unspecified (4) Hypertension Onset Date: 08/22/16 Current Visit: No Status: Chronic Qualifiers: Hypertension type: essential hypertension Qualified Code(s): I10 - Essential (primary) hypertension Brief History of Present Illness: Patient is here as her daughter was not able to wake her up. She has no CT signs of stroke. Was walking up but not at baseline so was admitted for observation. This morning she complaints of no pain fever or headaches. her daughter states she is better but not at her baseline. Hospital Course: Patient admitted for altered mental status. Is doing better. She has no complaints. Is eating well. Had a bowel movement. Took a shower this morning. Have cautioned her about the continous use of trazadone. Will have her follow up with Rashard Polo Vital Signs/Physical Exam: Temp Pulse Resp BP Pulse Ox 98.1 F 103 H 18 148/88 H 91 12/15/17 08:00 12/15/17 09:30 12/15/17 08:00 12/15/17 09:30 12/15/17 08:00 General: Alert, In no apparent distress HEENT: Atraumatic, PERRLA, EOMI Neck: Supple, JVD not distended Respiratory: Clear to auscultation bilaterally, Normal air movement Cardiovascular: Regular rate/rhythm, Normal S1 S2 Gastrointestinal: Normal bowel sounds, No tenderness Musculoskeletal: No tenderness Integumentary: No rashes Neurological: Normal speech, Normal tone, Normal affect Lymphatics: No axilla or inguinal lymphadenopathy Laboratory Data at Discharge: WBC 5.7 K/uL (4.3-10.9) D 12/14/17 04:21 Hgb 12.7 g/dL (12.0-15.0) 12/14/17 04:21 Hct 39.8 % (36.0-45.0) 12/14/17 04:21 Plt Count 154 K/uL (152-406) 12/14/17 04:21 PT 11.4 SECONDS (9.5-12.5) 12/13/17 17:14 INR 0.97 12/13/17 17:14 Sodium 145 mmol/L (136-145) 12/14/17 04:21 Potassium 3.9 mmol/L (3.5-5.1) 12/14/17 04:21 BUN 24 mg/dL (7-18) H 12/14/17 04:21 Creatinine 1.10 mg/dL (0.55-1.3) 12/14/17 04:21 Glucose 85 mg/dL (74-106) 12/14/17 04:21 Total Bilirubin 0.2 mg/dL (0.2-1.0) 12/13/17 17:14 AST 15 U/L (15-37) 12/13/17 17:14 ALT 8 U/L (12-78) L 12/13/17 17:14 Alkaline Phosphatase 92 U/L (45-117) 12/13/17 17:14 Home Medications: Albuterol Neb [Proventil 0.083% Neb Soln] 1 aer IH Q4H PRN 12/13/17 Amlodipine [Norvasc*] 5 mg PO DAILY 12/13/17 Aspirin [Aspirin EC 81 MG] 81 mg PO DAILY 12/13/17 Cholecalciferol (Vitamin D3) [Vitamin D 1000 Iu Tab*] 1 tab PO DAILY 12/13/17 Duloxetine [Cymbalta *] 60 mg PO DAILY 12/13/17 Fluticasone/Salmeterol [Advair 250-50 Diskus] 1 puff IH BID 12/13/17 Gemfibrozil [Lopid*] 600 mg PO BID 12/13/17 Levothyroxine [Synthroid*] 50 mcg PO DAILY 12/13/17 Metoprolol Tartrate [Lopressor*] 50 mg PO BID 12/13/17 Pantoprazole [Protonix Tab*] 40 mg PO DAILY 12/13/17 Quetiapine [Seroquel*] 200 mg PO BEDTIME 12/13/17 Ropinirole HCl [Requip] 0.5 mg PO TID 12/13/17 Trazodone [Desyrel*] 150 mg PO BEDTIME 12/13/17 Diet: ADA Activity: Ad ronald Followup: Kaylene Polo, DESULPHURING OPERATOR [ALLIED HEALTH PROFESSIONAL] - 1-2 Weeks Time spent managing pt's care (in minutes): 35
== END 2017-12-15 14:50 | disposition home or self-care (01) ==
LOC: ER 15:19 → ERHOLD 19:27 → 2ND 19:47
PROVIDERS: ADMIT Internal Medicine; ATTEND Internal Medicine
DX: R41.82 Altered mental status, unspecified (principal); J44.9 Chronic obstructive pulmonary disease, unspecified; E03.9 Hypothyroidism, unspecified; G25.81 Restless legs syndrome; I10 Essential (primary) hypertension; F17.210 Nicotine dependence, cigarettes, uncomplicated; E78.5 Hyperlipidemia, unspecified; Z86.73 Personal history of transient ischemic attack (TIA), and cerebral infarction without residual deficits; Z79.82 Long term (current) use of aspirin
CPT/HCPCS: 36415; 51702; 70450; 71045; 80048 ×2; 80076; 80307 ×8; 82140; 82550; 82805; 82962; 83605; 84145; 84439; 84443; 84484; 85025 ×2; 85610; 87040 ×2; 93005; 97163; 99285; G0378 ×2; J1650 ×2; J7030 ×4; 81003; 81015

== ENCOUNTER 2018-06-07 11:57 | Inpatient (IN) | payer OTHER ==
[2018-06-07 12:23] VITALS: BMI 16.7
[2018-06-07] MEDS ORDERED: FENTANYL CITR 100 MCG/2 ML ONE (12:28)
[2018-06-07] MEDS ORDERED: PROPOFOL 200 MG/20 ML VIAL IV ONE (12:29)
[2018-06-07] MEDS ORDERED: MIDAZOLAM HCL 2 MG/2 ML INJ ONE ×2 (12:29→13:22)
[2018-06-07] MEDS ORDERED: LIDOCAINE 2% MPF 5 ML VIAL ONE (12:30)
[2018-06-07] MEDS ORDERED: ONDANSETRON 4 MG/2 ML VIAL ONE (12:30)
[2018-06-07] MEDS ORDERED: ROCURONIUM 50 MG/5 ML VIAL IV ONE (12:31)
[2018-06-07 12:53] LABS: Absolute Lymphocytes (CBC) 0.8 K/uL (0.7-4.9); Absolute Monocytes 0.7 K/uL (0.1-1.3); Absolute Neutrophil 7.5 K/uL (1.8-8.0); Basophils % 0.4 % (0-1.3); Eosinophils % 0.5 % (0-4.4); Hematocrit 40.4 % (36.0-45.0); Lymphocytes % 8.4 % (15.3-44.8); MCH 30.5 pg (27.0-35.0); MCV 91.6 fL (80-100); MPV 10.6 fL (7.6-11.3); Monocytes % 8.2 % (3.3-12.3); RBC Red Blood Cell Count 4.41 M/uL (3.86-4.86)
[2018-06-07] MEDS: LEVALBUTEROL 0.63 MG/3 ML NEB NEB SCH (13:05)
[2018-06-07] MEDS: DEXAMETHASONE 4 MG/ML VIAL IV SCH ×2 (13:07→18:00)
[2018-06-07 13:10] LABS: Albumin 3.4 g/dL (3.4-5.0); Bilirubin Total 0.3 mg/dL (0.2-1.0); Potassium 4.2 mmol/L (3.5-5.1); Protein, Total 7.7 g/dL (6.4-8.2)
[2018-06-07 14:57] LABS: Urine Appearance CLEAR; Urine Bilirubin NEGATIVE (NEG); Urine Blood NEGATIVE (NEG); Urine Color YELLOW; Urine Glucose NEGATIVE (NEG); Urine Protein TRACE (NEG); Urine Urobilinogen 0.2 mg/dL (0.2-1.0)
[2018-06-07] MEDS: TRAMADOL HCL 50 MG TAB PO PRN (15:15)
[2018-06-07 15:24] LABS: Urine Microscopic Reflex ORDER UMIC
[2018-06-07 15:27] LABS: Urine Bacteria <20 /HPF (<20); Urine Culture Reflex Order NOT NEEDED; Urine RBC <5 /HPF (NONE SEEN)
--- NOTE | 2018-06-07 16:04 | P.HP ---
Certification for Inpatient Patient admitted to: Inpatient With expected LOS: >2 Midnights Patient will require the following post-hospital care: Home Health Services Practitioner: I am a practitioner with admitting privileges, knowledge of patient current condition, hospital course, and medical plan of care. Services: Services provided to patient in accordance with Admission requirements found in Title 42 Section 412.3 of the Code of Federal Regulations Patient History Date of Service: 06/07/18 Primary Care Provider: Kaylene Polo Reason for admission: Copd Exacerbaton History of Present Illness: Patient of Daniela Polo. Past history of copd, tia, hyperlipidemia, depression, hypothyroidism. She has been having cough for the past few days. She was very short of breath this morning. Used a home nebulizer, which did not improve her. She is a smoker. Has been continuing to smoke. Came to the office today and was found to have a pulse ox of 81% and very poor airway movement on ausculataion. She was sent to the hospital for direct admission. She is improving on decadrone and breathing treatment Allergies Iodine and Iodide Containing Produc Allergy (Unknown, Verified 10/30/17 22:35) Hives/Rash adhesive tape Allergy (Verified 10/30/17 22:35) Itching Iodinated Contrast- Oral and IV Dye Allergy (Verified 12/13/17 23:45) Anaphylaxis zolpidem [From Ambien] Allergy (Verified 10/30/17 22:35) Anaphylaxis Adhesives Allergy (Uncoded 12/13/17 20:04) Unknown Home Medications: Amlodipine [Norvasc] 5 mg PO DAILY 06/07/18 Cholecalciferol (Vitamin D3) [Vitamin D3] 1,000 unit PO DAILY 06/07/18 Fluticasone/Salmeterol [Advair 250-50 Diskus] 1 puff IH BID 06/07/18 Gemfibrozil [Lopid] 600 mg PO BID 06/07/18 Quetiapine Fumarate [Seroquel] 200 mg PO BEDTIME 06/07/18 RX: Albuterol Inhaler [Ventolin Inhaler*] 1 puff IH Q4H PRN 06/07/18 RX: Aspirin 81 mg PO DAILY 06/07/18 RX: Duloxetine HCl 60 mg PO DAILY 06/07/18 RX: Levothyroxine Sodium 50 mcg PO DAILY 06/07/18 RX: Metoprolol Tartrate 50 mg PO BID 06/07/18 RX: Pantoprazole Sodium 40 mg PO DAILY 06/07/18 RX: Ropinirole HCl 0.5 mg PO BID 06/07/18 RX: Trazodone HCl 100 mg PO BEDTIME 06/07/18 - Past Medical/Surgical History Has patient received pneumonia vaccine in the past: Yes Diabetic: No -: COPD, oxygen-dependent -: Hypertension -: History of ulcerative colitis -: Arthritis -: GERD -: Hypothyroidism -: Depression with anxiety -: Restless leg syndrome -: History CVA -: Chronic renal disease -: Tobacco abuse -: ABF leg aortic replacement -: Cholecystectomy -: Hysterectomy -: Stent -: Colorectal surgery Psychosocial/ Personal History: The patient lives with her sister. She is a . She has 1 child. - Family History Mother -: Hypertension Father Notes: committed suicide - Social History Smoking Status: Current every day smoker Alcohol use: No CD- Drugs: No Caffeine use: Yes Place of Residence: Home Review of Systems 10-point ROS is otherwise unremarkable General: Weakness, Malaise Respiratory: Cough, Shortness of Breath Physical Examination - Vital Signs Temperature: 97.7 F Blood Pressure: 142/72 Pulse: 103 Respirations: 20 Pulse Ox (%): 92 - Physical Exam General: Alert, In no apparent distress HEENT: Atraumatic, PERRLA, Mucous membr. moist/pink, EOMI, Sclerae nonicteric Neck: Supple, 2+ carotid pulse no bruit, No LAD, Without JVD or thyroid abnormality Respiratory: Diminished, Expiratory wheezes Cardiovascular: Regular rate/rhythm, Normal S1 S2 Gastrointestinal: Normal bowel sounds, No tenderness Musculoskeletal: No tenderness Integumentary: No rashes Neurological: Normal gait, Normal speech, Normal strength at 5/5 x4 extr, Normal tone, Normal affect Lymphatics: No axilla or inguinal lymphadenopathy - Studies Laboratory Data (last 24 hrs) 06/07/18 12:35: Sodium 137, Potassium 4.2, BUN 16, Creatinine 1.40 H, Glucose 99 , Total Bilirubin 0.3, AST 13 L, ALT 9 L, Alkaline Phosphatase 83 06/07/18 12:35: WBC 9.1, Hgb 13.4, Hct 40.4, Plt Count 157 Assessment and Plan - Problems (Diagnosis) (1) COPD exacerbation Current Visit: Yes Status: Acute Plan: cont breathing treatment and steroids. Consult Dr. Cameron. She is improving (2) Tobacco abuse counseling Current Visit: Yes Status: Acute Plan: Patient was smoking on the way to PCP for copd exacerbation. Will need to discuss at length. However not as she was so short of breah (3) History of TIA (transient ischemic attack) Current Visit: Yes Status: Acute Plan: Check lipid profiles. She is not on a statin. Possible start a low dose asprin (4) Restless leg syndrome Current Visit: Yes Status: Acute Plan: cont requip and trazodone (5) Hyperlipidemia Onset Date: 10/31/17 Current Visit: No Status: Chronic Qualifiers: (6) Hypertension Onset Date: 08/22/16 Current Visit: No Status: Chronic Plan: cont metoprolol for now Qualifiers: Hypertension type: essential hypertension (7) Hypothyroidism Onset Date: 12/14/17 Current Visit: No Status: Chronic Plan: continue levothyroxine, check tsh Qualifiers: Hypothyroidism type: acquired Qualified Code(s): E03.9 - Hypothyroidism, unspecified Discharge Plan: Home Plan to discharge in: Greater than 2 days - Advance Directives Does patient have a Living Will: No Does patient have a Durable POA for Healthcare: No - Code Status/Comfort Care Code Status Assessed: No Code Status: Full Code Physician Review: Patient Assessed, Agree with Above Assessment and Plan Critical Care: No Time Spent Managing Pts Care (In Minutes): 75
[2018-06-07] MEDS: ENOXAPARIN 30 MG/0.3 ML SQ SCH (17:40)
[2018-06-07] MEDS: ROPINIROLE HCL 0.25 MG TAB PO SCH (20:54)
[2018-06-07] MEDS: GEMFIBROZIL 600 MG TAB PO SCH (20:55)
[2018-06-07] MEDS: TRAZODONE 50 MG TABLET PO SCH (20:55)
[2018-06-07] MEDS: QUETIAPINE 100MG TAB PO SCH (20:55)
[2018-06-08] MEDS: DEXAMETHASONE 4 MG/ML VIAL IV SCH ×2 (00:06→05:46)
[2018-06-08] MEDS: LEVALBUTEROL 0.63 MG/3 ML NEB NEB SCH ×5 (02:00→20:03)
[2018-06-08] MEDS: LEVOTHYROXINE SOD 0.05 MG TABLET PO SCH (05:45)
[2018-06-08] MEDS: PANTOPRAZOLE 40MG TABLET PO SCH (05:45)
[2018-06-08 07:42] LABS: Absolute Lymphocytes (CBC) 0.4 K/uL (0.7-4.9); Absolute Monocytes 0.2 K/uL (0.1-1.3); Absolute Neutrophil 3.7 K/uL (1.8-8.0); Basophils % 0.2 % (0-1.3); Hematocrit 37.1 % (36.0-45.0); Lymphocytes % 9.6 % (15.3-44.8); MCH 30.2 pg (27.0-35.0); MCV 90.8 fL (80-100); MPV 10.6 fL (7.6-11.3); Monocytes % 4.2 % (3.3-12.3); RBC Red Blood Cell Count 4.08 M/uL (3.86-4.86)
[2018-06-08 08:08] LABS: Bilirubin Total 0.2 mg/dL (0.2-1.0); Magnesium 2.3 mg/dL (1.8-2.4); Potassium 4.4 mmol/L (3.5-5.1); Protein, Total 7.6 g/dL (6.4-8.2); Thyroid Stimulating Hormone 0.457 uIU/mL (0.360-3.740)
[2018-06-08] MEDS: DULOXETINE 30 MG CAP PO SCH (09:13)
[2018-06-08] MEDS: AMLODIPINE 5 MG TAB PO SCH (09:15)
[2018-06-08] MEDS: VITAMIN D 1000 UNIT TAB PO SCH (09:15)
[2018-06-08] MEDS: ASPIRIN 81 MG CHEWABLE TABLET PO SCH (09:15)
[2018-06-08] MEDS: GEMFIBROZIL 600 MG TAB PO SCH ×2 (09:15→20:42)
[2018-06-08] MEDS: ROPINIROLE HCL 0.25 MG TAB PO SCH ×2 (09:15→20:42)
[2018-06-08] MEDS: NICOTINE 21 MG/PAT TD SCH (09:16)
[2018-06-08 09:25] LABS: Blood Morphology Comment NOT SEEN (NOT SEEN); Platelet Estimate ADEQ; Urine White Blood Cell Casts OK
--- NOTE | 2018-06-08 10:09 | P.CNS ---
Date of Consult: 06/08/18 Reason for Consult: COPD exacerbation Primary Care Provider: Kaylene Polo Chief Complaint: Copd Exacerbaton History of Present Illness: Patient is 67 years of age with a history of COPD heavy smoker 1 pack a day has been sick for about 3 weeks complaining of progressive cough shortness of breath admitted with a diagnosis of exacerbation of COPD patient uses her bronchodilators at home denies any chest pain fever chills or hemoptysis denies any lower extremity edema Allergies Iodine and Iodide Containing Produc Allergy (Unknown, Verified 10/30/17 22:35) Hives/Rash adhesive tape Allergy (Verified 10/30/17 22:35) Itching Iodinated Contrast- Oral and IV Dye Allergy (Verified 12/13/17 23:45) Anaphylaxis zolpidem [From Ambien] Allergy (Verified 10/30/17 22:35) Anaphylaxis Adhesives Allergy (Uncoded 12/13/17 20:04) Unknown Home Medications: Albuterol Inhaler [Ventolin Inhaler*] 1 puff IH Q4H PRN 06/07/18 Amlodipine [Norvasc] 5 mg PO DAILY 06/07/18 Aspirin 81 mg PO DAILY 06/07/18 Cholecalciferol (Vitamin D3) [Vitamin D3] 1,000 unit PO DAILY 06/07/18 Duloxetine HCl 60 mg PO DAILY 06/07/18 Fluticasone/Salmeterol [Advair 250-50 Diskus] 1 puff IH BID 06/07/18 Gemfibrozil [Lopid] 600 mg PO BID 06/07/18 Levothyroxine Sodium 50 mcg PO DAILY 06/07/18 Metoprolol Tartrate 50 mg PO BID 06/07/18 Pantoprazole Sodium 40 mg PO DAILY 06/07/18 Quetiapine Fumarate [Seroquel] 200 mg PO BEDTIME 06/07/18 Ropinirole HCl 0.5 mg PO BID 06/07/18 Trazodone HCl 100 mg PO BEDTIME 06/07/18 - Past Medical/Surgical History Diabetic: No -: COPD, oxygen-dependent -: Hypertension -: History of ulcerative colitis -: Arthritis -: GERD -: Hypothyroidism -: Depression with anxiety -: Restless leg syndrome -: History CVA -: Chronic renal disease -: Tobacco abuse -: ABF leg aortic replacement -: Cholecystectomy -: Hysterectomy -: Stent -: Colorectal surgery -: Had a stent placed in the left arm Psychosocial/ Personal History: The patient lives with her sister. She is a . She has 1 child. - Family History Mother Medical History: Hypertension Father Notes: committed suicide - Social History Smoking Status: Unknown if ever smoked Alcohol use: No CD- Drugs: No Caffeine use: Yes Place of Residence: Home Review of Systems 10-point ROS is otherwise unremarkable General: Weakness Respiratory: Cough, Shortness of Breath Physical Examination Temp Pulse Resp BP Pulse Ox 98.1 F 108 H 22 H 134/69 95 06/08/18 08:00 06/08/18 09:15 06/08/18 08:00 06/08/18 09:15 06/08/18 08:00 General: Alert, In no apparent distress, Oriented x3 Neck: Supple Respiratory: Expiratory wheezes Cardiovascular: No edema, Regular rate/rhythm, Normal S1 S2 Gastrointestinal: Normal bowel sounds, Soft and benign Musculoskeletal: No clubbing, No swelling Integumentary: No rashes, No breakdown Laboratory Data (last 24 hrs) 06/08/18 07:15: Sodium 137, Potassium 4.4, BUN 19 H, Creatinine 1.30, Glucose 151 H, Magnesium 2.3, Total Bilirubin 0.2, AST 12 L, ALT 9 L, Alkaline Phosphatase 74 06/08/18 07:15: WBC 4.3 D, Hgb 12.3, Hct 37.1, Plt Count 137 L 06/08/18 05:31: Triglycerides 158 H, Cholesterol 149, HDL Cholesterol 39 L, Cholesterol/HDL Ratio 3.82 06/07/18 12:35: Sodium 137, Potassium 4.2, BUN 16, Creatinine 1.40 H, Glucose 99 , Total Bilirubin 0.3, AST 13 L, ALT 9 L, Alkaline Phosphatase 83 06/07/18 12:35: WBC 9.1, Hgb 13.4, Hct 40.4, Plt Count 157 - Problems (1) COPD exacerbation Current Visit: Yes Status: Acute Plan: Patient is 67 years of age admitted with COPD exacerbation heavy smoker 1 pack a day he does use Advair on a daily basis history of chronic renal insufficiency vital sign satisfactory chest x-ray ordered patient takes significant amount of antipsychotic medication at home CBCs normal possible discharge home tomorrow patient continue to use Advair add Spiriva prednisone 10 mg twice a day for 10 days follow with me in 2 weeks she will need outpatient pulmonary function testing console to stops smoking sputum cultures pending vital sign satisfactory
--- NOTE | 2018-06-08 10:59 | RAD REPORT ---
EXAM DESCRIPTION: RAD - Chest Pa And Lat (2 Views) - 06/08/2018 10:39 am CLINICAL HISTORY: COPD exacerbation, possible pneumonia, shortness of breath COMPARISON: December 13, 2017, October 31, 2017 TECHNIQUE: PA and lateral views of the chest were obtained. FINDINGS: The lungs are fibrotic with flattened diaphragm and increased retrosternal space. No foca l consolidation or mass lesions seen. Failure and volume overload are not suspected. Interstitial mar kings in each lung base are increased slightly. Heart size is normal and central vasculature is withi n normal limits. No pleural effusion or pneumothorax seen. No acute bony finding noted. No aortic abnormality. IMPRESSION: Bibasilar mild interstitial edema or infiltrate superimposed on moderate COPD.
[2018-06-08] MEDS: predniSONE 20 MG TAB PO SCH ×2 (12:07→20:43)
--- NOTE | 2018-06-08 12:57 | P.PN ---
Subjective Date of Service: 06/08/18 Primary Care Provider: Kaylene Polo Chief Complaint: Copd Exacerbaton Subjective: Improving (still using accesory muscles to breath. however improve from yesterday) Review of Systems 10-point ROS is otherwise unremarkable Respiratory: Cough, SOB with Excertion Physical Examination - Vital Signs Temperature: 98.4 F Blood Pressure: 130/68 Pulse: 112 Respirations: 20 Pulse Ox (%): 94 - Physical Exam General: Alert, In no apparent distress HEENT: Atraumatic, PERRLA, EOMI Neck: Supple, JVD not distended Respiratory: Diminished, Expiratory wheezes (improved from yesterday) Cardiovascular: Regular rate/rhythm, Normal S1 S2 Gastrointestinal: Normal bowel sounds, No tenderness Musculoskeletal: No tenderness Integumentary: No rashes Neurological: Normal speech, Normal tone, Normal affect Lymphatics: No axilla or inguinal lymphadenopathy - Studies Laboratory Data (last 24 hrs) 06/08/18 07:15: Sodium 137, Potassium 4.4, BUN 19 H, Creatinine 1.30, Glucose 151 H, Magnesium 2.3, Total Bilirubin 0.2, AST 12 L, ALT 9 L, Alkaline Phosphatase 74 06/08/18 07:15: WBC 4.3 D, Hgb 12.3, Hct 37.1, Plt Count 137 L 06/08/18 05:31: Triglycerides 158 H, Cholesterol 149, HDL Cholesterol 39 L, Cholesterol/HDL Ratio 3.82 06/07/18 12:35: Sodium 137, Potassium 4.2, BUN 16, Creatinine 1.40 H, Glucose 99 , Total Bilirubin 0.3, AST 13 L, ALT 9 L, Alkaline Phosphatase 83 06/07/18 12:35: WBC 9.1, Hgb 13.4, Hct 40.4, Plt Count 157 Assessment & Plan - Problems (Diagnosis) (1) COPD exacerbation Current Visit: Yes Status: Acute Plan: cont breathing treatment switch to oral prednisone. Will start her on a respiratory fluroquinolone due to the chest xray (2) Tobacco abuse counseling Current Visit: Yes Status: Acute Plan: Patient was smoking on the way to PCP for copd exacerbation. as she is better this morning, discussed a plan with her. Setting a quit date, weaning and nicotine replacement were all discussed. Spent 10min on this alone (3) History of TIA (transient ischemic attack) Current Visit: Yes Status: Acute Plan: Check lipid profiles. She is not on a statin. Possible start a low dose asprin (4) Restless leg syndrome Current Visit: Yes Status: Acute Plan: cont requip and trazodone (5) Hyperlipidemia Onset Date: 10/31/17 Current Visit: No Status: Chronic Qualifiers: (6) Hypertension Onset Date: 08/22/16 Current Visit: No Status: Chronic Plan: cont metoprolol for now Qualifiers: Hypertension type: essential hypertension (7) Hypothyroidism Onset Date: 12/14/17 Current Visit: No Status: Chronic Plan: continue levothyroxine, check tsh Qualifiers: Hypothyroidism type: acquired Qualified Code(s): E03.9 - Hypothyroidism, unspecified Discharge Plan: Home Plan to discharge in: 48 Hours - Code Status/Comfort Care Code Status Assessed: No Code Status: Full Code Physician Review: Patient Assessed, Agree with Above Assessment and Plan Critical Care: No Time Spent Managing Pts Care (In Minutes): 25
[2018-06-08] MEDS: NA CHLORIDE 0.9% 1,000 ML IV SCH (13:42)
[2018-06-08] MEDS ORDERED: Levofloxacin500mg IV 500 MG/100 ML BAG IV ONE (14:00)
[2018-06-08] MEDS: TRAMADOL HCL 50 MG TAB PO PRN (15:32)
[2018-06-08] MEDS: ENOXAPARIN 30 MG/0.3 ML SQ SCH (17:02)
[2018-06-08] MEDS ORDERED: DEXAMETHASONE 10 MG/ML VIAL IV SCH (18:00)
[2018-06-08] MEDS: TRAZODONE 50 MG TABLET PO SCH (20:43)
[2018-06-08] MEDS: QUETIAPINE 100MG TAB PO SCH (20:43)
[2018-06-09] MEDS: LEVALBUTEROL 0.63 MG/3 ML NEB NEB SCH ×4 (01:05→19:25)
[2018-06-09] MEDS: NA CHLORIDE 0.9% 1,000 ML IV SCH ×3 (03:43→20:06)
[2018-06-09] MEDS: LEVOTHYROXINE SOD 0.05 MG TABLET PO SCH (05:41)
[2018-06-09] MEDS: TRAMADOL HCL 50 MG TAB PO PRN ×2 (05:44→15:20)
[2018-06-09] MEDS: PANTOPRAZOLE 40MG TABLET PO SCH (06:21)
[2018-06-09 07:44] LABS: Absolute Lymphocytes (CBC) 0.4 K/uL (0.7-4.9); Absolute Monocytes 0.5 K/uL (0.1-1.3); Basophils % 0.2 % (0-1.3); Eosinophils % 0.1 % (0-4.4); Hematocrit 37.2 % (36.0-45.0); MCH 30.5 pg (27.0-35.0); MPV 10.3 fL (7.6-11.3); Monocytes % 12.5 % (3.3-12.3); RBC Red Blood Cell Count 4.09 M/uL (3.86-4.86)
[2018-06-09 08:01] LABS: Albumin 2.9 g/dL (3.4-5.0); Bilirubin Total 0.2 mg/dL (0.2-1.0); Potassium 4.2 mmol/L (3.5-5.1); Protein, Total 7.2 g/dL (6.4-8.2)
[2018-06-09] MEDS: VITAMIN D 1000 UNIT TAB PO SCH (09:01)
[2018-06-09] MEDS: NICOTINE 21 MG/PAT TD SCH (09:01)
[2018-06-09] MEDS: ASPIRIN 81 MG CHEWABLE TABLET PO SCH (09:02)
[2018-06-09] MEDS: predniSONE 20 MG TAB PO SCH ×2 (09:02→20:07)
[2018-06-09] MEDS: DULOXETINE 30 MG CAP PO SCH (09:02)
[2018-06-09] MEDS: GEMFIBROZIL 600 MG TAB PO SCH ×2 (09:02→20:07)
[2018-06-09] MEDS: AMLODIPINE 5 MG TAB PO SCH (09:02)
--- NOTE | 2018-06-09 11:17 | P.PN ---
Subjective Date of Service: 06/09/18 Primary Care Provider: Kaylene Polo Chief Complaint: Copd Exacerbaton Subjective: No new changes Review of Systems 10-point ROS is otherwise unremarkable Respiratory: SOB with Excertion (sob when walking to the bathroom) Physical Examination - Vital Signs Temperature: 98.2 F Blood Pressure: 158/83 Pulse: 120 Respirations: 22 Pulse Ox (%): 98 - Physical Exam General: Alert, In no apparent distress HEENT: Atraumatic, PERRLA, EOMI Neck: Supple, JVD not distended Respiratory: Diminished, Expiratory wheezes Cardiovascular: Regular rate/rhythm, Normal S1 S2 Gastrointestinal: Normal bowel sounds, No tenderness Musculoskeletal: No tenderness Integumentary: No rashes Neurological: Normal speech, Normal tone, Normal affect Lymphatics: No axilla or inguinal lymphadenopathy - Studies Laboratory Data (last 24 hrs) 06/09/18 07:25: Sodium 142, Potassium 4.2, BUN 15, Creatinine 1.30, Glucose 178 H, Total Bilirubin 0.2, AST 14 L, ALT 10 L, Alkaline Phosphatase 70 06/09/18 07:25: WBC 3.9 L, Hgb 12.5, Hct 37.2, Plt Count 138 L Microbiology Data (last 24 hrs): 06/08/18 13:15 Blood - Blood Anaerobic Blood Culture - Final 06/07/18 14:30 Sputum Gram Stain - Final Assessment & Plan - Problems (Diagnosis) (1) COPD exacerbation Current Visit: Yes Status: Acute Plan: cont breathing treatment switch to oral prednisone. Will start her on a respiratory fluroquinolone due to the chest xray (2) Tobacco abuse counseling Current Visit: Yes Status: Acute Plan: Patient was smoking on the way to PCP for copd exacerbation. as she is better this morning, discussed a plan with her. Setting a quit date, weaning and nicotine replacement were all discussed. Spent 10min on this alone (3) History of TIA (transient ischemic attack) Current Visit: Yes Status: Acute Plan: Check lipid profiles. She is not on a statin. Possible start a low dose asprin (4) Restless leg syndrome Current Visit: Yes Status: Acute Plan: cont requip and trazodone (5) Hyperlipidemia Onset Date: 10/31/17 Current Visit: No Status: Chronic Qualifiers: (6) Hypertension Onset Date: 08/22/16 Current Visit: No Status: Chronic Plan: cont metoprolol for now Qualifiers: Hypertension type: essential hypertension (7) Hypothyroidism Onset Date: 12/14/17 Current Visit: No Status: Chronic Plan: continue levothyroxine, check tsh Qualifiers: Hypothyroidism type: acquired Qualified Code(s): E03.9 - Hypothyroidism, unspecified (8) Pneumonia Onset Date: 08/22/16 Current Visit: No Status: Acute Plan: continue levaquin. will await blood cultures Qualifiers: Pneumonia type: due to unspecified organism Lung location: middle lobe of lung Discharge Plan: Home Plan to discharge in: 48 Hours - Code Status/Comfort Care Code Status Assessed: No Code Status: Full Code Physician Review: Patient Assessed, Agree with Above Assessment and Plan Critical Care: No Time Spent Managing Pts Care (In Minutes): 20
[2018-06-09] MEDS: ROPINIROLE HCL 0.25 MG TAB PO SCH ×2 (13:04→20:06)
[2018-06-09] MEDS: Levofloxacin 250mg IV 250 MG/50 ML BAG IV SCH (13:04)
[2018-06-09] MEDS: ENOXAPARIN 30 MG/0.3 ML SQ SCH (16:46)
[2018-06-09] MEDS: BISACODYL E.C. 5 MG TAB PO SCH (16:46)
[2018-06-09] MEDS: QUETIAPINE 100MG TAB PO SCH (20:07)
[2018-06-09] MEDS: TRAZODONE 50 MG TABLET PO SCH (20:07)
[2018-06-09 20:25] VITALS: O2SAT 98
[2018-06-10] MEDS: BISACODYL E.C. 5 MG TAB PO SCH ×3 (00:07→17:00)
[2018-06-10] MEDS: LEVALBUTEROL 0.63 MG/3 ML NEB NEB SCH ×4 (02:05→14:00)
[2018-06-10] MEDS: TRAMADOL HCL 50 MG TAB PO PRN ×2 (04:07→14:33)
[2018-06-10] MEDS: LEVOTHYROXINE SOD 0.05 MG TABLET PO SCH (06:20)
[2018-06-10] MEDS: PANTOPRAZOLE 40MG TABLET PO SCH (06:20)
[2018-06-10] MEDS: NA CHLORIDE 0.9% 1,000 ML IV SCH (06:20)
[2018-06-10 06:35] LABS: Absolute Lymphocytes (CBC) 0.5 K/uL (0.7-4.9); Absolute Monocytes 0.5 K/uL (0.1-1.3); Absolute Neutrophil 3.1 K/uL (1.8-8.0); Basophils % 0.1 % (0-1.3); Lymphocytes % 11.8 % (15.3-44.8); MCH 30.4 pg (27.0-35.0); MCV 90.7 fL (80-100); MPV 10.1 fL (7.6-11.3); Monocytes % 11.9 % (3.3-12.3); RBC Red Blood Cell Count 3.86 M/uL (3.86-4.86)
[2018-06-10 06:38] LABS: Albumin 2.8 g/dL (3.4-5.0); Bilirubin Total 0.2 mg/dL (0.2-1.0); Potassium 4.3 mmol/L (3.5-5.1); Protein, Total 6.7 g/dL (6.4-8.2)
--- NOTE | 2018-06-10 08:34 | P.PN ---
Subjective Date of Service: 06/10/18 Primary Care Provider: Kaylene Polo Chief Complaint: Copd Exacerbaton Subjective: Improving (Patient is doing much better wants to go home does not qualify for home O2) Review of Systems Unremarkable Physical Examination - Vital Signs Temperature: 98.5 F Blood Pressure: 133/68 Pulse: 129 Respirations: 19 Pulse Ox (%): 96 - Physical Exam General: Alert, Oriented x3 Neck: Supple Respiratory: Clear to auscultation bilaterally Cardiovascular: Regular rate/rhythm - Studies Laboratory Data (last 24 hrs) 06/10/18 06:00: Sodium 144, Potassium 4.3, BUN 15, Creatinine 1.10, Glucose 132 H, Total Bilirubin 0.2, AST 10 L, ALT 10 L, Alkaline Phosphatase 69 06/10/18 06:00: WBC 4.0 L, Hgb 11.7 L, Hct 35.0 L, Plt Count 149 L Microbiology Data (last 24 hrs): 06/07/18 14:30 Sputum Gram Stain - Final 06/07/18 14:30 Sputum Culture & Sensitivity - Final Haemophilus Influenza Iii 06/08/18 13:15 Blood - Blood Anaerobic Blood Culture - Final Assessment & Plan - Problems (Diagnosis) (1) COPD exacerbation Current Visit: Yes Status: Acute Plan: Patient admitted with COPD exacerbation doing much better chest x-ray shows COPD with chronic interstitial lung disease patient is an active smoker to resume Advair discharge on low-dose prednisone 10 b.i.d. for 10 days patient does not qualify for home O2 console double stopping smoking chemistries and labs all reviewed follow with me in 2-4 weeks Physician Review: Patient Assessed, Agree with Above Assessment and Plan
[2018-06-10] MEDS: GEMFIBROZIL 600 MG TAB PO SCH (08:55)
[2018-06-10] MEDS: AMLODIPINE 5 MG TAB PO SCH (08:55)
[2018-06-10] MEDS: VITAMIN D 1000 UNIT TAB PO SCH (08:55)
[2018-06-10] MEDS: ASPIRIN 81 MG CHEWABLE TABLET PO SCH (08:56)
[2018-06-10] MEDS: DULOXETINE 30 MG CAP PO SCH (08:56)
[2018-06-10] MEDS: predniSONE 20 MG TAB PO SCH (08:56)
[2018-06-10] MEDS: NICOTINE 21 MG/PAT TD SCH (08:57)
[2018-06-10] MEDS: ROPINIROLE HCL 0.25 MG TAB PO SCH (09:09)
--- NOTE | 2018-06-10 11:57 | P.DS ---
Admission Date: 06/07/18 Discharge Date: 06/10/18 Primary Care Provider: Kaylene Polo Disposition: ROUTINE DISCHARGE Discharge Condition: FAIR Reason for Admission: Copd Exacerbaton - Problems (1) COPD exacerbation Onset Date: 06/10/18 Current Visit: Yes Status: Acute (2) Tobacco abuse counseling Onset Date: 06/10/18 Current Visit: Yes Status: Acute (3) History of TIA (transient ischemic attack) Current Visit: Yes Status: Acute (4) Restless leg syndrome Onset Date: 06/10/18 Current Visit: Yes Status: Acute (5) Hyperlipidemia Onset Date: 10/31/17 Current Visit: No Status: Chronic Qualifiers: (6) Hypertension Onset Date: 08/22/16 Current Visit: No Status: Chronic Qualifiers: Hypertension type: essential hypertension (7) Hypothyroidism Onset Date: 12/14/17 Current Visit: No Status: Chronic Qualifiers: Hypothyroidism type: acquired Qualified Code(s): E03.9 - Hypothyroidism, unspecified (8) Pneumonia Onset Date: 08/22/16 Current Visit: No Status: Acute Qualifiers: Pneumonia type: due to unspecified organism Lung location: middle lobe of lung Brief History of Present Illness: Patient of Daniela Polo. Past history of copd, tia, hyperlipidemia, depression, hypothyroidism. She has been having cough for the past few days. She was very short of breath this morning. Used a home nebulizer, which did not improve her. She is a smoker. Has been continuing to smoke. Came to the office today and was found to have a pulse ox of 81% and very poor airway movement on ausculataion. She was sent to the hospital for direct admission. She is improving on decadrone and breathing treatment Hospital Course: Patient admitted. Started on steroids and breathing treatment. Had a lower lobe infiltrate. Started on levaquin. She was seen by Dr. Cameron. switched to oral antibiotics. She qualified to home oxygen. We can discharge when this is arranged. Have her follow up with Daniela Polo and Dr. Cameron. Vital Signs/Physical Exam: Temp Pulse Resp BP Pulse Ox 98.5 F 129 H 19 133/68 96 06/10/18 08:34 06/10/18 08:34 06/10/18 08:34 06/10/18 08:55 06/10/18 08:34 General: Alert, In no apparent distress HEENT: Atraumatic, PERRLA, EOMI Neck: Supple, JVD not distended Respiratory: Diminished, Expiratory wheezes Cardiovascular: Regular rate/rhythm, Normal S1 S2 Gastrointestinal: Normal bowel sounds, No tenderness Musculoskeletal: No tenderness Integumentary: No rashes Neurological: Normal speech, Normal tone, Normal affect Lymphatics: No axilla or inguinal lymphadenopathy Laboratory Data at Discharge: WBC 4.0 K/uL (4.3-10.9) L 06/10/18 06:00 Hgb 11.7 g/dL (12.0-15.0) L 06/10/18 06:00 Hct 35.0 % (36.0-45.0) L 06/10/18 06:00 Plt Count 149 K/uL (152-406) L 06/10/18 06:00 Sodium 144 mmol/L (136-145) 06/10/18 06:00 Potassium 4.3 mmol/L (3.5-5.1) 06/10/18 06:00 BUN 15 mg/dL (7-18) 06/10/18 06:00 Creatinine 1.10 mg/dL (0.55-1.3) 06/10/18 06:00 Glucose 132 mg/dL (74-106) H 06/10/18 06:00 Magnesium 2.3 mg/dL (1.8-2.4) 06/08/18 07:15 Total Bilirubin 0.2 mg/dL (0.2-1.0) 06/10/18 06:00 AST 10 U/L (15-37) L 06/10/18 06:00 ALT 10 U/L (12-78) L 06/10/18 06:00 Alkaline Phosphatase 69 U/L (45-117) 06/10/18 06:00 Triglycerides 158 mg/dL (<150) H 06/08/18 05:31 Cholesterol 149 mg/dL (<200) 06/08/18 05:31 HDL Cholesterol 39 mg/dL (40-60) L 06/08/18 05:31 Cholesterol/HDL Ratio 3.82 06/08/18 05:31 Home Medications: Amlodipine [Norvasc] 5 mg PO DAILY 06/07/18 Cholecalciferol (Vitamin D3) [Vitamin D3] 1,000 unit PO DAILY 06/07/18 Fluticasone/Salmeterol [Advair 250-50 Diskus] 1 puff IH BID 06/07/18 Gemfibrozil [Lopid] 600 mg PO BID 06/07/18 Quetiapine Fumarate [Seroquel] 200 mg PO BEDTIME 06/07/18 RX: Albuterol Inhaler [Ventolin Inhaler*] 1 puff IH Q4H PRN 06/07/18 RX: Aspirin 81 mg PO DAILY 06/07/18 RX: Duloxetine HCl 60 mg PO DAILY 06/07/18 RX: Levothyroxine Sodium 50 mcg PO DAILY 06/07/18 RX: Metoprolol Tartrate 50 mg PO BID 06/07/18 RX: Pantoprazole Sodium 40 mg PO DAILY 06/07/18 RX: Ropinirole HCl 0.5 mg PO BID 06/07/18 RX: Trazodone HCl 100 mg PO BEDTIME 06/07/18 Docusate Sodium [Dulcolax Stool Softener] 100 mg PO BID 15 Days #30 capsule Fluticasone/Salmeterol [Advair Hfa 230-21 Mcg Inhaler] 8 gm IH BID 30 Days #1 aer.w.adap 06/10/18 Levofloxacin [Levaquin] 500 mg PO DAILY 7 Days #7 tablet 06/10/18 RX: Albuterol Inhaler [Ventolin Inhaler*] 2 puff IH Q6H PRN 90 Days #3 hfa.aer.ad 06/10/18 RX: Albuterol Neb [Proventil 0.083% Neb Soln] 2.5 mg IH Q6HP PRN 30 Days #100 amp 06/10/18 RX: Prednisone [Sterapred Ds] 10 mg PO BID #20 tab.ds.pk 06/10/18 New Medications: RX: Albuterol Inhaler [Ventolin Inhaler*] 2 puff IH Q6H PRN 90 Days #3 hfa.aer.ad PRN Reason: Shortness Of Breath RX: Albuterol Neb [Proventil 0.083% Neb Soln] 2.5 mg IH Q6HP PRN 30 Days #100 amp PRN Reason: Shortness Of Breath Docusate Sodium [Dulcolax Stool Softener] 100 mg PO BID 15 Days #30 capsule Fluticasone/Salmeterol [Advair Hfa 230-21 Mcg Inhaler] 8 gm IH BID 30 Days #1 aer.w.adap Levofloxacin [Levaquin] 500 mg PO DAILY 7 Days #7 tablet RX: Prednisone [Sterapred Ds] 10 mg PO BID #20 tab.ds.pk Diet: Regular Activity: Ad ronald Followup: Mustapha Del Rio MD [ACTIVE - CAN ADMIT] - 1 Week Kaylene Polo NP [Family Provider] - 1-2 Weeks Time spent managing pt's care (in minutes): 40
[2018-06-10] MEDS: Levofloxacin 250mg IV 250 MG/50 ML BAG IV SCH (14:20)
[2018-06-10 16:17] VITALS: BP 148/86; TEMP 98.6
[2018-06-10] MEDS: ENOXAPARIN 30 MG/0.3 ML SQ SCH (18:08)
== END 2018-06-10 18:34 | disposition home or self-care (01) | DRG 190 ==
LOC: 4TH 12:03
PROVIDERS: ADMIT Internal Medicine; ATTEND Internal Medicine
DX: J44.1 Chronic obstructive pulmonary disease with (acute) exacerbation (principal); J18.9 Pneumonia, unspecified organism; N17.9 Acute kidney failure, unspecified; R64 Cachexia; J44.0 Chronic obstructive pulmonary disease with (acute) lower respiratory infection; E78.5 Hyperlipidemia, unspecified; I10 Essential (primary) hypertension; E03.9 Hypothyroidism, unspecified; G25.81 Restless legs syndrome; Z86.73 Personal history of transient ischemic attack (TIA), and cerebral infarction without residual deficits; F17.210 Nicotine dependence, cigarettes, uncomplicated; Z88.8 Allergy status to other drugs, medicaments and biological substances; Z91.041 Radiographic dye allergy status; M19.90 Unspecified osteoarthritis, unspecified site; K21.9 Gastro-esophageal reflux disease without esophagitis; Z95.2 Presence of prosthetic heart valve
CPT/HCPCS: 36415; 71046; 80053; 80061; 81003; 81015; 83605; 83735; 84134; 84145; 84443; 85025; 87040; 87070; 87184; 87205; 94640; J1650; J2250; J2405; J2704; J3010; J7030; J7512

== ENCOUNTER 2020-12-17 11:55 | Observation (INO) | payer OTHER ==
--- OUTSIDE RECORDS SUMMARY | 2020-12-17 11:58 | XMS REPORT | Continuity of Care Document ---
:1950 Author Organization [facility] t Address [address] [place] [address] Care Team Providers Name Role Phone Unavailable Unavailable Unavailable Problems This patient has no known problems. Allergies, Adverse Reactions, Alerts Allergy Allergy Status Severity Reaction(s) Onset Inactive Treating Comm ents Source Name Type Date Date Clinician Iodine Adverse Active rash [facility] Baclofen Adverse Active sever [facility] Ambien Adverse Active makes crazy [facility] Medications Ordered Filled Start Stop Current Ordering Indication Dosage Frequency Signature Comments Components Source Medication Medication Date Date Medication? Clinician (SIG) Name Name Sonu Ascencio 2018-06 2020- No Kaylene [address] [facility] Ellipta Ellipta 1-26 01-25 [place] [facility] Ondansetron Ondansetron Yes Kaylene [address] [facility] HCl HCl 9-27 [place] as needed [facility] Aspirin Aspirin Yes Kaylene [address] [facility] Adult Low Adult Low [place] [facility] - Strength Strength [facility] Seroquel Seroquel Yes Kaylene [address] [place] [facility] Ventolin Ventolin Yes Kaylene INHALE ONE [facility] HFA HFA [place] TO TWO [facility] PUFFS BY [facility]oria MOUTH l EVERY 6 Outpati HOURS ent NEEDED FOR Clinics WHEEZING Metoprolol Metoprolol Yes Kaylene TAKE [address] [facility] Tartrate Tartrate [place] TABLET BY L [facility]kes - MOUTH [facility] TWICE l DAILY WITH [facility] FO[facility] Clinics Levothyroxi Levothyroxi Yes Kaylene [address] [facility] ne Sodium ne Sodium [place] on an Pam es - empty Memoria stomach in l the Outpati morning ent Clinics Cymbalta Cymbalta Yes Kaylene [address] [place] [facility] Vitamin D3 Vitamin D3 Yes Kaylene [address] [facility] [place] [facility] Ropinirole Ropinirole Yes Kaylene TAKE ONE [facility] HCl HCl [place] TABLET BY [facility]TH [facility] THREE l TIMES [facility] DA[facility] Clinics Amlodipine Amlodipine Yes Kaylene take one [facility] Besylate Besylate [place] tablet by L ukes - mouth once [facility] daily l [facility] Lopressor Lopressor Yes Kaylene [address] [facility] [place] with food [facility] Albuterol Albuterol Yes Kaylene 3 ml as [facility] Sulfate Sulfate [place] needed [facility] Trazodone Trazodone Yes Kaylene [address] HCl HCl [place] [facility] Gemfibrozil Gemfibrozil Yes Kaylene TAKE [address] [facility] [place] TABLET BY [facility] TWICE l DAILY [facility] Pantoprazol Pantoprazol Yes Kaylene [address] [facility] e Sodium e Sodium [place] [facility] Procedures This patient has no known procedures. Encounters Start End Encounter Admission Attending Care Care Encounter Source Date/Time Date/Time Type Type Clinicians Facility Department ID 2020-09-15 2020-09-15 Outpatient [facility] [id number] [facility] 2020-08-30 2020-08-30 Outpatient [facility] [id number] [facility] 2020-08-27 2020-08-27 Outpatient [facility] [id number] [facility] 2020-08-26 2020-08-26 Out[facility] [id number] [facility] Outpat[facility] Clinics 2020-06-01 2020-06-01 Outpatient [facility] [id number] [facility] 2019-12-16 2019-12-16 [facility] [id number] [facility] 09[facility]18[facility]00 09:18:00 [facility] Out[facility] ent Clinics 2019-11-27 2019-11-27 [facility] [id number] [address] 13:00:00 13:00:00 [facility] Clin[facility] 2019-10-29 2019-10-29 [facility] [id number] 09[facility]20[facility]00 09:20:00 [facility] Clin[facility] 2019-08-26 2019-08-26 [facility] [id number] [address] 10:00[facility]00 10:00:00 [facility] Clin[facility] 2019-08-14 2019-08-14 [facility] [id number] 10:40:00 10:40:00 [facility] Clin[facility] 2019-07-09 2019-07-09 [facility] [id number] [address] 14:20:00 14:20:00 [facility] Clin[facility] 2019-06-27 2019-06-27 [facility] [id number] [address] 10:20:00 10:20:00 [facility] Clin[facility] Results This patient has no known results.
--- NOTE | 2020-12-17 13:32 | RAD REPORT ---
EXAM DESCRIPTION: RAD - Chest Single View - 12/17/2020 1:22 pm CLINICAL HISTORY: CHEST PAIN Chest pain. COMPARISON: Chest Pa And Lat (2 Views) dated 06/08/2018; Chest Single View dated 12/13/2017; Chest Pa And Lat (2 Views) dated 10/31/2017; Chest Single View dated 10/30/2017; Abdomen 1 View (KUB) dated 2015 FINDINGS: Portable technique limits examination quality. The lungs are mildly emphysematous but grossly clear. The heart is upper limit of normal in size. No displaced fractures. IMPRESSION: Mild COPD.
[2020-12-17] MEDS ORDERED: NA CHLORIDE 0.9% 1,000 ML ONE (14:02)
[2020-12-17] MEDS ORDERED: MORPHINE 2 MG/ML SYR ONE ×3 (14:02→17:43)
[2020-12-17] MEDS ORDERED: ONDANSETRON 4 MG/2 ML VIAL ONE (14:02)
[2020-12-17 14:13] LABS: Protime INR 0.92
[2020-12-17] MEDS ORDERED: DIPHENHYDRAMINE 50 MG/ML VIAL ONE (14:42)
[2020-12-17] MEDS ORDERED: FAMOTIDINE 20 MG/2 ML VIAL IV ONE ×2 (14:43→22:20)
[2020-12-17] MEDS ORDERED: METHYLPREDNISOLONE 40 MG INJ ONE (14:43)
[2020-12-17 14:44] LABS: ALT/SGPT 9 U/L (12-78); AST/SGOT 7 U/L (15-37); Albumin 3.5 g/dL (3.4-5.0); Alkaline Phosphatase 85 U/L (45-117); BUN Blood Urea Nitrogen 20 mg/dL (7-18); Bicarbonate 27 mmol/L (21-32); Bilirubin Direct < 0.1 mg/dL (0-0.2); Bilirubin Total 0.3 mg/dL (0.2-1.0); Glucose Level 88 mg/dL (74-106); Lipase 427 U/L (73-393); Magnesium 2.1 mg/dL (1.8-2.4); NT PRO-BNP 143 pg/mL (<125); Potassium 3.9 mmol/L (3.5-5.1); Protein, Total 7.5 g/dL (6.4-8.2); Sodium Level 137 mmol/L (136-145); Troponin (Emerg Dept Use Only) < 0.02 ng/mL (0.0-0.045)
--- NOTE | 2020-12-17 15:06 | RAD REPORT ---
EXAM DESCRIPTION: CT - Chest Abd Pelvis Wo Con - 12/17/2020 2:33 pm CLINICAL HISTORY: Chest and abdomen pain. Chest pain;Dissection COMPARISON: Chest For Pe Angio dated 02/02/2017 TECHNIQUE: Limited noncontrast study was performed. All CT scans are performed using dose optimization technique as appropriate and may include automated exposure control or mA/KV adjustment according to patient size. FINDINGS: The lungs are mildly emphysematous. No focal mass or infiltrate seen.No pleural or pericar dial effusion.No intrathoracic adenopathy.Vascular stent at the origin of the left subclavian artery is seen. Aortic arch is atherosclerotic. The liver, spleen, pancreas, adrenal glands and kidneys are within normal limits. No bowel obstruction, free air, free fluid or abscess. The appendix is not identified as a discrete s tructure, however, no secondary findings of appendicitis are identified. No pathologic lymphadenopa thy in the abdomen or pelvis. No worrisome osseous finding. IMPRESSION: Limited noncontrast study is submitted demonstrating no of acute finding.
[2020-12-17 15:10] LABS: Absolute Lymphocytes (CBC) 1.4 K/uL (0.7-4.9); Basophils % 0.2 % (0-1.3); Hematocrit 35.6 % (36.0-45.0); Lymphocytes % 24.2 % (15.3-44.8); MPV 10.2 fL (7.6-11.3); RBC Red Blood Cell Count 3.93 M/uL (3.86-4.86)
--- NOTE | 2020-12-17 15:24 | EDPHYS ---
Physician Documentation [facility] Name: Louise Raines Age: 70 yrs Sex: Female : 1950 Arrival Date: 12/17/2020 Time: 11:56 Bed Ultrasound Private MD: Kaylene Polo ED Physician Malcolm Teran HPI: 12/17 15:01 This 70 yrs old Female presents to ER via Wheelchair with complaints of Chest gael Pain, Back Pain. 15:01 The patient or guardian reports chest pain that is located primarily in the epigastric gael area, anterior chest wall. Onset: 3 day(s) ago. The pain radiates to Associated signs and symptoms: The patient has no apparent associated signs or symptoms. The chest pain is described as a heaviness. Duration: The patient or guardian reports a single episode, that is still ongoing. Severity of pain: At its worst the pain was mild in the emergency department the pain is unchanged. The patient has not experienced similar symptoms in the past. Historical: - Allergies: 12:08 Adhesives; iw 12:08 ambien; iw 12:08 Iodine; iw - Home Meds: 12:08 Lopid 600 mg Oral tab 1 tab 2 times per day [Active]; omeprazole 40 mg oral cpDR once iw daily [Active]; levothyroxine 50 mcg tab 1 tab once daily [Active]; ropinirole 0.5 mg Oral tab 1 tab 3 times per day [Active]; amlodipine 5 mg tab [Active]; metoprolol tartrate 50 mg Oral tab 1 tab 2 times per day [Active]; aspirin 81 mg Oral TbEC 1 tab once daily [Active]; Vitamin D Oral 1000 unit daily [Active]; Trelegy Ellipta 100-62.5-25 mcg inhalation dsdv 1 puff once daily [Active]; albuterol sulfate 2.5 mg /3 mL (0.083 %) Inhl nebu every 4 hours [Active]; 12:10 trazodone 150 mg Oral tab nightly [Active]; Seroquel 200 mg Oral tab 1 tab nightly iw [Active]; duloxetine 60 mg Oral cpDR once daily [Active]; - PMHx: 12:08 COPD; Hypertension; Hypothyroidism; ulcerative colitis; iw - PSHx: 12:10 Hysterectomy; Cholecystectomy; left arm stent; colorectal surgery; iw - Immunization history:: Client reports having NOT received the Covid vaccine. - Social history:: Smoking status: Patient reports the use of cigarette tobacco products, smokes one-half pack cigarettes per day. - Family history:: not pertinent. ROS: 15:01 Constitutional: Negative for fever, chills, and weight loss, Eyes: Negative for injury, gael pain, redness, and discharge, ENT: Negative for injury, pain, and discharge, Neck: Negative for injury, pain, and swelling, Abdomen/GI: Negative for abdominal pain, nausea, vomiting, diarrhea, and constipation, Back: Negative for injury and pain, : Negative for injury, bleeding, discharge, and swelling, MS/Extremity: Negative for injury and deformity, Skin: Negative for injury, rash, and discoloration, Neuro: Negative for headache, weakness, numbness, tingling, and seizure, Psych: Negative for depression, anxiety, suicide ideation, homicidal ideation, and hallucinations, Allergy/Immunology: Negative for hives, rash, and allergies, Endocrine: Negative for neck swelling, polydipsia, polyuria, polyphagia, and marked weight changes, Hematologic/Lymphatic: Negative for swollen nodes, abnormal bleeding, and unusual bruising. 15:01 Cardiovascular: Positive for chest pain, of the chest. 15:01 Respiratory: Positive for cough, shortness of breath, at rest. Exam: 15:01 Constitutional: This is a well developed, well nourished patient who is awake, alert, gael and in no acute distress. Head/Face: Normocephalic, atraumatic. Eyes: Pupils equal round and reactive to light, extra-ocular motions intact. Lids and lashes normal. Conjunctiva and sclera are non-icteric and not injected. Cornea within normal limits. Periorbital areas with no swelling, redness, or edema. ENT: Nares patent. No nasal discharge, no septal abnormalities noted. Tympanic membranes are normal and external auditory canals are clear. Oropharynx with no redness, swelling, or masses, exudates, or evidence of obstruction, uvula midline. Mucous membranes moist. Neck: Trachea midline, no thyromegaly or masses palpated, and no cervical lymphadenopathy. Supple, full range of motion without nuchal rigidity, or vertebral point tenderness. No Meningismus. Chest/axilla: Normal chest wall appearance and motion. Nontender with no deformity. No lesions are appreciated. Cardiovascular: Regular rate and rhythm with a normal S1 and S2. No gallops, murmurs, or rubs. Normal PMI, no JVD. No pulse deficits. Respiratory: Lungs have equal breath sounds bilaterally, clear to auscultation and percussion. No rales, rhonchi or wheezes noted. No increased work of breathing, no retractions or nasal flaring. Abdomen/GI: Soft, non-tender, with normal bowel sounds. No distension or tympany. No guarding or rebound. No evidence of tenderness throughout. Back: No spinal tenderness. No costovertebral tenderness. Full range of motion. Female : Normal external genitalia. Skin: Warm, dry with normal turgor. Normal color with no rashes, no lesions, and no evidence of cellulitis. MS/ Extremity: Pulses equal, no cyanosis. Neurovascular intact. Full, normal range of motion. Neuro: Awake and alert, GCS 15, oriented to person, place, time, and situation. Cranial nerves II-XII grossly intact. Motor strength 5/5 in all extremities. Sensory grossly intact. Cerebellar exam normal. Normal gait. Psych: Awake, alert, with orientation to person, place and time. Behavior, mood, and affect are within normal limits. Vital Signs: 12:04 BP 126 / 75; Pulse 86; Resp 18; Temp 97.4; Pulse Ox 100% on 4 lpm NC; Weight 39.46 kg; iw Height 5 ft. 1 in. (154.94 cm); Pain 8/10; 13:30 BP 123 / 61; Pulse 85; Resp 16; Pulse Ox 100% 3 lpm ; zb 14:30 BP 130 / 68; Pulse 83; Resp 18; Pulse Ox 100% on 3 lpm NC; zb 15:30 BP 139 / 99; Pulse 86; Resp 18; Pulse Ox 100% on 3 lpm NC; zb 16:32 BP 117 / 71; Pulse 83; Resp 18; Pulse Ox 100% on 3 lpm NC; zb 17:27 BP 120 / 60; Pulse 82; Resp 16; Pulse Ox 100% on 3 lpm NC; zb 19:34 BP 134 / 61; Pulse 87; Resp 20; Pulse Ox 100% 3 lpm ; zb 19:34 BP 131 / 58; Pulse 88; Resp 19; Pulse Ox 100% 3 lpm ; zb 12:04 Body Mass Index 16.44 (39.46 kg, 154.94 cm) iw MDM: 12:52 Patient medically screened. gael 15:01 Differential diagnosis: abnormal EKG, acute pericarditis, anxiety, coronary artery gael disease cholecystitis, Cholelithiasis hiatal hernia, pancreatitis, peptic ulcer disease, pericarditis, stable angina, thoracic aortic disection, unstable angina. HEART Score: History: Moderately Suspicious (1), ECG: Normal (0), Age: > or = 65 years (2), Risk Factors: > or = 3 Risk factors for atherosclerotic disease (2), [Hypercholesterolemia] [Hypertension] [+ Family HX] Troponin: < or = 1 x Normal Limit (0), Total Score = 5. The patient was given aspirin in the Emergency Department. The patient's deep vein thrombosis risk score was calculated as follows: Total Score: 0. This patient was found to be at low risk for a deep vein thrombosis by using the Well's assessment criteria. The patient's pulmonary embolism risk score was calculated as follows: Total Score: 0-2 points. This patient was found to be at low risk for a pulmonary embolism by using the Well's assessment criteria. JOSE Risk Score: TOTAL SCORE = 0. Data reviewed: vital signs, nurses notes, lab test result(s), EKG, radiologic studies, CT scan, plain films. Data interpreted: title attorney: rate is 86 beats/min, rhythm is regular, Pulse oximetry: on room air is 100 %. Test interpretation: by ED physician or midlevel provider: ECG, plain radiologic studies. Counseling: I had a detailed discussion with the patient and/or guardian regarding: the historical points, exam findings, and any diagnostic results supporting the discharge/admit diagnosis, lab results, radiology results, the need for further work-up and treatment in the hospital. 12/17 12:43 Order name: Basic Metabolic Panel; Complete Time: 14:53 iw 12/17 12:43 Order name: LFT's; Complete Time: 14:53 iw 12/17 12:43 Order name: Magnesium; Complete Time: 14:53 iw 12/17 12:43 Order name: NT PRO-BNP; Complete Time: 14:53 iw 12/17 12:43 Order name: PT-INR; Complete Time: 14:53 12/17 12:43 Order name: Troponin (emerg Dept Use Only); Complete Time: 14:53 12/17 12:55 Order name: Urine Culture [facility] 12/17 14:39 Order name: Lipase; Complete Time: 14:53 EDMS 12/17 14:49 Order name: CBC with Diff zb 12/17 14:49 Order name: CBC with Automated Diff; Complete Time: 15:32 EDMS 12/17 15:47 Order name: CREATININE WHOLE BLOOD; Complete Time: 16:50 EDSC 12/17 16:58 Order name: Lipid Profile; Complete Time: 17:49 [facility] 12/17 12:43 Order name: XRAY Chest (1 view); Complete Time: 14:04 12/17 12:43 Order name: EKG; Complete Time: 12:44 12/17 12:43 Order name: Cardiac monitoring; Complete Time: 14:02 12/17 14:27 Order name: Chest Abd Pelvis Wo Con; Complete Time: 15:32 EDSC 12/17 17:14 Order name: Urine Dipstick-Ancillary; Complete Time: 17:49 EDSC 12/17 18:29 Order name: SARS-COV-2 RT PCR; Complete Time: 18:50 EDMS 12/17 12:43 Order name: EKG - Nurse/Tech; Complete Time: 14:08 12/17 12:43 Order name: IV Saline Lock; Complete Time: 14:10 12/17 12:43 Order name: Labs collected and sent; Complete Time: 14:10 12/17 12:43 Order name: O2 Per Protocol; Complete Time: 14:10 12/17 12:43 Order name: O2 Sat Monitoring; Complete Time: 14:10 12/17 12:55 Order name: Urine Dipstick-Ancillary (obtain specimen); Complete Time: 17:15 [facility] Administered Medications: 14:02 Drug: morphine 2 mg {Note: RASS +1.} Route: IVP; Site: right antecubital; zb 14:02 Drug: Zofran (Ondansetron) 4 mg Route: IVP; Site: right antecubital; zb 16:30 Follow up: Response: No adverse reaction; Marked relief of symptoms zb 14:54 Not Given (Duplicate Order): Benadryl (diphenhydrAMINE) 25 mg IVP once gael 14:54 Not Given (Duplicate Order): Pepcid (famotidine) 20 mg IVP once; dilute with 10 mL 0.9% gael NaCl; give over 2 minutes 14:54 Not Given (Duplicate Order): SOLU-Medrol (methylPrednisoLONE) 2 mg/kg IVP once gael 15:03 Drug: NS 0.9% 1000 ml Route: IV; Rate: 125 ml/hr; Site: right antecubital; zb 15:03 Drug: morphine 2 mg Route: IVP; Site: right antecubital; zb 16:30 Follow up: Response: No adverse reaction; Marked relief of symptoms; Pain is decreased; zb RASS: Alert and Calm (0) 17:30 Drug: morphine 2 mg Route: IVP; Site: right antecubital; zb 18:00 Follow up: Response: No adverse reaction; Marked relief of symptoms; Pain is decreased; zb RASS: Alert and Calm (0) 19:21 Drug: GI Cocktail without - (Maalox Suspension 30 ml, Lidocaine Liquid 2 % 15 zb ml) Route: PO; 20:00 Follow up: Response: No adverse reaction; Marked relief of symptoms zb Disposition: 12/17/20 15:23 Hospitalization ordered by Aniket Rojas for Observation. Preliminary diagnosis are Chest pain, unspecified, Chronic obstructive pulmonary disease, unspecified, Unspecified kidney failure - CHRONIC. - Bed requested for Telemetry/MedSurg (observation). - Status is Observation. zb - Condition is Fair. - Problem is new. - Symptoms have improved. Signatures: Dispatcher [employer] EDMS Malcolm Teran MD MD cha Mickail, Joel, PA PA jmm Williams, Irene, RN Yoel Andres, PIPE THREADER-C PIPE THREADER-Cla1 Amena Thomas Zipporah RN RN christ Corrections: (The following items were deleted from the chart) 14:24 12:44 CBC+H.LAB.BRZ ordered. EDMS EDMS 14:27 12:55 Angio Aorta For Dissection+CT.RAD.BRZ ordered. EDMS EDMS 14:38 12:53 LIPASE+C.LAB.BRZ ordered. EDMS EDMS 15:24 15:23 Hospitalization Ordered by Donte Gallego MD for Observation. Preliminary gael diagnosis is Chest pain, unspecified; Chronic obstructive pulmonary disease, unspecified. Bed requested for Telemetry/MedSurg (observation). Status is Observation. Condition is Fair. Problem is new. Symptoms have improved. gael 15:35 15:24 12/17/2020 15:23 Hospitalization Ordered by Donte Gallego MD for Observation. gael Preliminary diagnosis is Chest pain, unspecified; Chronic obstructive pulmonary disease, unspecified; Unspecified kidney failure - CHRONIC. Bed requested for Telemetry/MedSurg (observation). Status is Observation. Condition is Fair. Problem is new. Symptoms have improved. gael 17:35 17:00 CORONAVIRUS+MR.LAB.BRZ ordered. EDMS EDMS 18:43 15:35 12/17/2020 15:23 Hospitalization Ordered by Aniket Rojas DO for Observation. eb Preliminary diagnosis is Chest pain, unspecified; Chronic obstructive pulmonary disease, unspecified; Unspecified kidney failure - CHRONIC. Bed requested for Telemetry/MedSurg (observation). Status is Observation. Condition is Fair. Problem is new. Symptoms have improved. gael 20:49 18:43 12/17/2020 15:23 Hospitalization Ordered by Aniket Rojas DO for Observation. zb Preliminary diagnosis is Chest pain, unspecified; Chronic obstructive pulmonary disease, unspecified; Unspecified kidney failure - CHRONIC. Bed requested for Telemetry/MedSurg (observation). Status is Observation. Condition is Fair. Problem is new. Symptoms have improved. eb
--- NOTE | 2020-12-17 15:24 | ER ---
Nurse's Notes [facility] Name: Louise Raines Age: 70 yrs Sex: Female : 1950 Arrival Date: 12/17/2020 Time: 11:56 Bed Ultrasound Private MD: Kaylene Polo Diagnosis: Chest pain, unspecified;Chronic obstructive pulmonary disease, unspecified;Unspecified kidney failure-CHRONIC Presentation: 12/17 12:04 Chief complaint: Patient states: hurts through her chest into her back X 3 days, mild iw cough, no fever, has hx of COPD, on home O2 4 L/min. Coronavirus screen: Client presents with at least one sign or symptom that may indicate coronavirus-19. Ebola Screen: Patient negative for fever greater than or equal to 101.5 degrees Fahrenheit, and additional compatible Ebola Virus Disease symptoms Patient denies exposure to infectious person. Patient denies travel to an Ebola-affected area in the 21 days before illness onset. No symptoms or risks identified at this time. Initial Sepsis Screen: Does the patient meet any 2 criteria? No. Patient's initial sepsis screen is negative. Does the patient have a suspected source of infection? No. Patient's initial sepsis screen is negative. Risk Assessment: Do you want to hurt yourself or someone else? Patient reports no desire to harm self or others. Onset of symptoms was December 14, 2020. 12:04 Method Of Arrival: Wheelchair iw 12:04 Acuity: JAIME 2 iw Historical: - Allergies: 12:08 Adhesives; iw 12:08 ambien; iw 12:08 Iodine; iw - Home Meds: 12:08 Lopid 600 mg Oral tab 1 tab 2 times per day [Active]; omeprazole 40 mg oral cpDR once iw daily [Active]; levothyroxine 50 mcg tab 1 tab once daily [Active]; ropinirole 0.5 mg Oral tab 1 tab 3 times per day [Active]; amlodipine 5 mg tab [Active]; metoprolol tartrate 50 mg Oral tab 1 tab 2 times per day [Active]; aspirin 81 mg Oral TbEC 1 tab once daily [Active]; Vitamin D Oral 1000 unit daily [Active]; Trelegy Ellipta 100-62.5-25 mcg inhalation dsdv 1 puff once daily [Active]; albuterol sulfate 2.5 mg /3 mL (0.083 %) Inhl nebu every 4 hours [Active]; 12:10 trazodone 150 mg Oral tab nightly [Active]; Seroquel 200 mg Oral tab 1 tab nightly iw [Active]; duloxetine 60 mg Oral cpDR once daily [Active]; - PMHx: 12:08 COPD; Hypertension; Hypothyroidism; ulcerative colitis; iw - PSHx: 12:10 Hysterectomy; Cholecystectomy; left arm stent; colorectal surgery; iw - Immunization history:: Client reports having NOT received the Covid vaccine. - Social history:: Smoking status: Patient reports the use of cigarette tobacco products, smokes one-half pack cigarettes per day. - Family history:: not pertinent. Screenin:33 Abuse screen: Denies threats or abuse. Denies injuries from another. Nutritional zb screening: Has had N/V for 3 or more days. Tuberculosis screening: No symptoms or risk factors identified. Fall Risk None identified. Assessment: 13:35 General: Appears in no apparent distress. uncomfortable, Behavior is calm, cooperative, zb appropriate for age. Pain: Complains of pain in back, chest and epigastric area Pain radiates to back Pain currently is 10 out of 10 on a pain scale. Quality of pain is described as heavy, pressure, radiating, sharp, Is intermittent. Pain: Pain began 2-3 days ago. Neuro: Level of Consciousness is awake, alert, obeys commands, Oriented to person, place, time, situation. Cardiovascular: Reports chest pain, nausea, Heart tones S1 S2 present Patient's skin is warm and dry. Respiratory: Airway is patent Respiratory effort is even, unlabored, Respiratory pattern is Breath sounds with crackles bilaterally. the patient has mild shortness of breath. GI: Abdomen is flat, Reports nausea, vomiting. Derm: Skin is intact, is fragile, is thin. Musculoskeletal: Range of motion: intact in all extremities. 14:30 Reassessment: Patient appears in no apparent distress at this time. Patient and/or zb family updated on plan of care and expected duration. Pain level reassessed. Patient is alert, oriented x 3, equal unlabored respirations, skin warm/dry/pink. 15:30 Reassessment: Patient appears in no apparent distress at this time. Patient and/or zb family updated on plan of care and expected duration. Pain level reassessed. Patient is alert, oriented x 3, equal unlabored respirations, skin warm/dry/pink. IV fluid infusing at this time. 16:34 Reassessment: Patient appears in no apparent distress at this time. Patient and/or zb family updated on plan of care and expected duration. Pain level reassessed. Patient is alert, oriented x 3, equal unlabored respirations, skin warm/dry/pink. hospitalist at bedside. IV fluid infusing. 17:28 Reassessment: notified dr. copeland of pain. verbal order for morphine. medicaiton given. zb 18:52 Reassessment: hospitalist at bedside. zb 19:37 Reassessment: Patient appears in no apparent distress at this time. Patient and/or zb family updated on plan of care and expected duration. Pain level reassessed. Patient is alert, oriented x 3, equal unlabored respirations, skin warm/dry/pink. attempted to call for report. told RN will call back. Vital Signs: 12:04 BP 126 / 75; Pulse 86; Resp 18; Temp 97.4; Pulse Ox 100% on 4 lpm NC; Weight 39.46 kg; iw Height 5 ft. 1 in. (154.94 cm); Pain 8/10; 13:30 BP 123 / 61; Pulse 85; Resp 16; Pulse Ox 100% 3 lpm ; zb 14:30 BP 130 / 68; Pulse 83; Resp 18; Pulse Ox 100% on 3 lpm NC; zb 15:30 BP 139 / 99; Pulse 86; Resp 18; Pulse Ox 100% on 3 lpm NC; zb 16:32 BP 117 / 71; Pulse 83; Resp 18; Pulse Ox 100% on 3 lpm NC; zb 17:27 BP 120 / 60; Pulse 82; Resp 16; Pulse Ox 100% on 3 lpm NC; zb 19:34 BP 134 / 61; Pulse 87; Resp 20; Pulse Ox 100% 3 lpm ; zb 19:34 BP 131 / 58; Pulse 88; Resp 19; Pulse Ox 100% 3 lpm ; zb 12:04 Body Mass Index 16.44 (39.46 kg, 154.94 cm) iw ED Course: 11:56 Patient arrived in ED. am2 11:57 Kaylene Polo FNP-C is Private Physician. am2 12:06 Triage completed. iw 12:10 Arm band placed on. iw 12:33 EKG done, by ED staff, reviewed by Malcolm Teran MD. dh3 12:52 Malcolm Teran MD is Attending Physician. gael 13:22 XRAY Chest (1 view) In Process Unspecified. EDMS 13:30 Patient has correct armband on for positive identification. title processor on. Pulse zb ox on. NIBP on. 13:36 Elvira Rai RN is Primary Nurse. zb 14:00 Inserted saline lock: 22 gauge in right antecubital area, using aseptic technique. zb Blood collected. 14:33 Chest Abd Pelvis Wo Con In Process Unspecified. EDMS 14:42 Oxygen administration via nasal cannula \T\ 2L/min. zb 15:17 Donte Gallego MD is Hospitalizing Provider. gael 15:35 Aniket Copeland DO is Hospitalizing Provider. gael 20:14 Patient admitted, IV remains in place. zb 20:14 No provider procedures requiring assistance completed. zb 20:15 Report given to ADWOA Wise. zb Administered Medications: 14:02 Drug: morphine 2 mg {Note: RASS +1.} Route: IVP; Site: right antecubital; zb 14:02 Drug: Zofran (Ondansetron) 4 mg Route: IVP; Site: right antecubital; zb 16:30 Follow up: Response: No adverse reaction; Marked relief of symptoms zb 14:54 Not Given (Duplicate Order): Benadryl (diphenhydrAMINE) 25 mg IVP once gael 14:54 Not Given (Duplicate Order): Pepcid (famotidine) 20 mg IVP once; dilute with 10 mL 0.9% gael NaCl; give over 2 minutes 14:54 Not Given (Duplicate Order): SOLU-Medrol (methylPrednisoLONE) 2 mg/kg IVP once gael 15:03 Drug: NS 0.9% 1000 ml Route: IV; Rate: 125 ml/hr; Site: right antecubital; zb 15:03 Drug: morphine 2 mg Route: IVP; Site: right antecubital; zb 16:30 Follow up: Response: No adverse reaction; Marked relief of symptoms; Pain is decreased; zb RASS: Alert and Calm (0) 17:30 Drug: morphine 2 mg Route: IVP; Site: right antecubital; zb 18:00 Follow up: Response: No adverse reaction; Marked relief of symptoms; Pain is decreased; zb RASS: Alert and Calm (0) 19:21 Drug: GI Cocktail without - (Maalox Suspension 30 ml, Lidocaine Liquid 2 % 15 zb ml) Route: PO; 20:00 Follow up: Response: No adverse reaction; Marked relief of symptoms zb Outcome: 15:23 Decision to Hospitalize by Provider. gael 20:14 Admitted to Med/surg accompanied by tech, room 410, with oxygen, with chart, Report zb called to ADWOA Wies 20:14 Condition: stable 20:14 Instructed on the need for admit. 20:49 Patient left the ED. zb Signatures: Dispatcher [employer] EDMS Malcolm Teran MD MD cha Williams, Irene, RN RN Connie Maddox Ana Oh 3 Elvira Rai RN RN zb Corrections: (The following items were deleted from the chart) 19:35 16:32 BP 117 / 71; Pulse 83bpm; Resp 18bpm; Pulse Ox 100% 2 lpm Nasal Cannula; zb zb 19:35 15:30 BP 139 / 99; Pulse 86bpm; Resp 18bpm; Pulse Ox 100% 2 lpm Nasal Cannula; zb zb 19:35 14:30 BP 130 / 68; Pulse 83bpm; Resp 18bpm; Pulse Ox 100% 2 lpm Nasal Cannula; zb zb 19:35 13:30 BP 123 / 61; Pulse 85bpm; Resp 16bpm; Pulse Ox 100% 2 lpm; zb zb 19:35 17:27 BP 120 / 60; Pulse 82bpm; Resp 16bpm; Pulse Ox 100% RA; zb zb
--- NOTE | 2020-12-17 15:56 | EKG ---
Test Date: 2020-12-17 Test Time: 12:21:19 Regenerator Operator: ELLYN MEASUREMENT RESULTS: Intervals: Rate: 85 NC: 132 QRSD: 78 QT: 394 QTc: 468 [place]: P: 83 NC: 132 QRS: 67 T: 81 INTERPRETIVE STATEMENTS: Normal sinus rhythm Normal ECG Compared to ECG 12/13/2017 16:05:48 Atrial abnormality no longer present Left ventricular hypertrophy no longer present ST (T wave) deviation no longer present Electronically Signed On 12-17-20 15:55:48 CDT by Bryan Chowdhury
[2020-12-17 17:15] LABS: Urine Blood Negative (Negative); Urine Glucose Negative (Negative); Urine Protein Negative (Negative); Urine pH 6.5 (5.0-7.0)
--- NOTE | 2020-12-17 19:31 | P.HP ---
Certification for Inpatient Patient admitted to: Observation With expected LOS: <2 Midnights Patient will require the following post-hospital care: None Practitioner: I am a practitioner with admitting privileges, knowledge of patient current condition, hospital course, and medical plan of care. Services: Services provided to patient in accordance with Admission requirements found in Title 42 Section 412.3 of the Code of Federal Regulations Patient History Date of Service: 12/17/20 Primary Care Provider: Melani FELIPE, Dr. Gary Reason for admission: Epigastric pain, BRADEN History of Present Illness: 70-year-old female with history of COPD on home oxygen, hypertension, hyperlipidemia, ulcer colitis, CKD 3, PVD presents emergency department for epigastric pain radiating to the back. Patient reports pain began about 3 days ago and associated with some vomiting, exacerbated with eating or drinking. Patient evaluated in the emergency department, labs relatively unremarkable aside from mild worsening in renal function. CT abdomen pelvis no acute findings, EKG unremarkable initial troponin negative, chest x-ray unremarkable. ED provider wishes to admit for further evaluation and management. Allergies Iodine and Iodide Containing Produc Allergy (Unknown, Verified 10/30/17 22:35) Hives/Rash adhesive tape Allergy (Verified 10/30/17 22:35) Itching Iodinated Contrast Media Allergy (Verified 12/13/17 23:45) Anaphylaxis zolpidem [From Ambien] Allergy (Verified 10/30/17 22:35) Anaphylaxis Adhesives Allergy (Uncoded 12/13/17 20:04) Unknown Home Medications: Albuterol Inhaler [Ventolin Inhaler*] 1 puff IH Q4H PRN 06/07/18 Amlodipine [Norvasc] 5 mg PO DAILY 06/07/18 Aspirin 81 mg PO DAILY 06/07/18 Cholecalciferol (Vitamin D3) [Vitamin D3] 1,000 unit PO DAILY 06/07/18 Duloxetine HCl 60 mg PO DAILY 06/07/18 Fluticasone/Salmeterol [Advair 250-50 Diskus] 1 puff IH BID 06/07/18 Levothyroxine Sodium 50 mcg PO DAILY 06/07/18 Metoprolol Tartrate 50 mg PO BID 06/07/18 Pantoprazole Sodium 40 mg PO DAILY 06/07/18 Quetiapine Fumarate [Seroquel] 200 mg PO BEDTIME 06/07/18 Ropinirole HCl 0.5 mg PO BID 06/07/18 Trazodone HCl 100 mg PO BEDTIME 06/07/18 gemfibroziL [Lopid] 600 mg PO BID 06/07/18 Albuterol Inhaler [Ventolin Inhaler*] 2 puff IH Q6H PRN 90 Days #3 hfa.aer.ad 06/10/18 Albuterol Neb [Proventil 0.083% Neb Soln] 2.5 mg IH Q6HP PRN 30 Days #100 amp 06/10/18 Docusate Sodium [Dulcolax Stool Softener] 100 mg PO BID 15 Days #30 capsule 06/10/18 Fluticasone/Salmeterol [Advair Hfa 230-21 Mcg Inhaler] 8 gm IH BID 30 Days #1 aer.w.adap 06/10/18 Levofloxacin [Levaquin] 500 mg PO DAILY 7 Days #7 tablet 06/10/18 Prednisone [Sterapred Ds] 10 mg PO BID #20 tab.ds.pk 06/10/18 - Past Medical/Surgical History Diabetic: No -: COPD, oxygen-dependent -: Hypertension -: History of ulcerative colitis -: Arthritis -: GERD -: Hypothyroidism -: Depression with anxiety -: Restless leg syndrome -: History CVA -: Chronic renal disease -: Tobacco abuse -: ABF leg aortic replacement -: Cholecystectomy -: Hysterectomy -: Stent -: Colorectal surgery -: Had a stent placed in the left arm Psychosocial/ Personal History: The patient lives with her sister. She is a . She has 1 child. - Family History Mother -: Hypertension Father Notes: committed suicide - Social History Smoking Status: Current every day smoker Smoking therapy provided: No (Patient declined) Alcohol use: No CD- Drugs: No Caffeine use: Yes Place of Residence: Home Review of Systems 10-point ROS is otherwise unremarkable Gastrointestinal: Nausea, Vomiting, Abdominal Pain Physical Examination - Physical Exam General: Alert, In no apparent distress, Oriented x3 HEENT: Atraumatic, PERRLA, Mucous membr. moist/pink Neck: Supple, 2+ carotid pulse no bruit, No LAD Respiratory: Clear to auscultation bilaterally, Normal air movement Cardiovascular: Regular rate/rhythm, Normal S1 S2 Gastrointestinal: Normal bowel sounds, No tenderness Musculoskeletal: No tenderness Integumentary: No rashes Neurological: Normal speech, Normal strength at 5/5 x4 extr, Normal tone, Normal affect - Studies Laboratory Data (last 24 hrs) 12/17/20 14:45: WBC 5.80, Hgb 11.5 L, Hct 35.6 L, Plt Count 143 L 12/17/20 14:00: Triglycerides 160 H, Cholesterol 128, HDL Cholesterol 36 L, Cholesterol/HDL Ratio 3.56 12/17/20 14:00: PT 10.6, INR 0.92 12/17/20 14:00: WBC Cancelled, Hgb Cancelled, Hct Cancelled, Plt Count Cancelled 12/17/20 14:00: Sodium 137, Potassium 3.9, BUN 20 H, Creatinine 1.78 H, Glucose 88, Magnesium 2.1, Total Bilirubin 0.3, AST 7 L, ALT 9 L, Alkaline Phosphatase 85, Lipase 427 H 12/17/20 12:52: Lipase Cancelled Assessment and Plan - Plan Assessment Epigastric pain suspect GERD BRADEN superimposed on CKD 3 COPD on home oxygen Hypothyroidism RLS History of CVA Chronic tobacco abuse Plan Epigastric pain suspect GERD: Will continue with Protonix IV b.i.d., clear liquid diet-advance as tolerated. Will trend troponin levels. Patient will need outpatient GI followup the discharge. Monitor on telemetry. DVT prophylaxis Lovenox 40 mg subcutaneous once daily. BRADEN superimposed on CKD 3: Will continue with IV fluids, consult nephrology for additional assistance. COPD on home oxygen: Continue medications/oxygen, stable this time. Hypothyroidism: Continue home meds RLS:Continue home meds History of CVA:Continue home meds Chronic tobacco abuse: Discussed need for tobacco cessation, patient declined Nicoderm patch. Discharge Plan: Home Plan to discharge in: 24 Hours - Advance Directives Does patient have a Living Will: No Does patient have a Durable POA for Healthcare: No - Code Status/Comfort Care Code Status Assessed: Yes (Full code) Critical Care: No Time Spent Managing Pts Care (In Minutes): 55
[2020-12-17] MEDS ORDERED: LIDOCAINE VISCOUS 2% SOLN 15 ML UDC ONE (19:40)
[2020-12-17] MEDS ORDERED: MAGNES/ALUMIN/SIMET 30ML UCUP ONE (19:40)
[2020-12-17] MEDS ORDERED: ACETAMINOPHEN 500 MG TAB PO PRN (20:11)
[2020-12-17] MEDS ORDERED: SODIUM CHLORIDE 0.9% 10ML INJ IV PRN (20:11)
[2020-12-17] MEDS ORDERED: ONDANSETRON 4 MG/2 ML VIAL IV PRN (20:11)
[2020-12-17] MEDS: D5 0.9 NS 1,000 ML IV SCH (20:11)
[2020-12-17] MEDS ORDERED: ALBUTEROL 2.5 MG/3 ML NEB SOL NEB PRN (20:11)
[2020-12-17] MEDS ORDERED: IPRATROPIUM BROM 0.5MG/2.5ML NEB PRN (20:11)
[2020-12-17] MEDS ORDERED: TRAZODONE 150 MG TAB PO PRN (20:11)
[2020-12-17] MEDS ORDERED: QUETIAPINE 100MG TAB PO SCH (21:00)
[2020-12-17] MEDS: ARFORMOTEROL TARTRATE 15 MCG/2 ML VIAL.NEB NEB SCH (21:05)
[2020-12-17 21:14] VITALS: BMI 18.5
--- NOTE | 2020-12-17 21:14 | RAD REPORT ---
EXAM DESCRIPTION: US - Abdomen Exam Complete - 12/17/2020 8:58 pm CLINICAL HISTORY: Abdominal pain. Evaluate for possible pancreatitis vs gastritis COMPARISON: ABD PELVIC VASCULAR SCAN dated 10/24/2013 FINDINGS: The liver appears mildly enlarged with a coarsened echotexture. No focal liver lesions or intrahepatic biliary dilatation is seen. Cholecystectomy. Common bile duct is normal in caliber measuring 7 mm. Both kidneys are normal in size, shape and echotexture. No hydronephrosis, focal lesion of concern or perinephric fluid. The spleen is normal in size measuring 10 cm. The pancreas and aorta are obscured by bowel gas. The visualized aspects of the IVC are grossly normal. IMPRESSION: Mildly enlarged liver with coarsened/heterogenous echotexture. Chronic underlying inflam mation or infection is possible. Cholecystectomy.
[2020-12-17] MEDS: HEPARIN 5000 UNIT/ML 1 ML VIAL SQ SCH (21:49)
[2020-12-17] MEDS: ROPINIROLE HCL 0.25 MG TAB PO SCH (21:49)
[2020-12-17] MEDS: METOPROLOL TAR 50 MG TAB PO SCH (21:49)
[2020-12-17] MEDS: gemfibroziL 600 MG TAB PO SCH (21:49)
[2020-12-17] MEDS: PANTOPRAZOLE 40 MG INJ IVP SCH (21:50)
[2020-12-17 22:11] LABS: CKMB Creatine Kinase MB 2.5 ng/mL (1.0-3.6); Creatine Phosphokinase 58 U/L (26-192); Troponin I < 0.02 ng/mL (0.0-0.045)
[2020-12-17] MEDS ORDERED: MORPHINE 2 MG/ML SYR IV PRN (22:20)
[2020-12-17] MEDS ORDERED: POTASSIUM CL SA 10 MEQ TAB PO ONE ×2 (22:43→23:08)
[2020-12-18] MEDS: D5 0.9 NS 1,000 ML IV SCH (05:32)
[2020-12-18 05:34] LABS: BUN Blood Urea Nitrogen 21 mg/dL (7-18); Bicarbonate 28 mmol/L (21-32); CKMB Creatine Kinase MB 1.6 ng/mL (1.0-3.6); Creatine Phosphokinase 42 U/L (26-192); Glucose Level 130 mg/dL (74-106); HDL Cholesterol 33 mg/dL (40-60); LDL Cholesterol, Calculated 48 (<130); Magnesium 1.9 mg/dL (1.8-2.4); Potassium 4.4 mmol/L (3.5-5.1); Sodium Level 142 mmol/L (136-145); Troponin I < 0.02 ng/mL (0.0-0.045)
[2020-12-18 05:36] LABS: Absolute Lymphocytes (CBC) 1.1 K/uL (0.7-4.9); Basophils % 0.3 % (0-1.3); Hematocrit 28.7 % (36.0-45.0); Lymphocytes % 34.4 % (15.3-44.8); MPV 10.5 fL (7.6-11.3); RBC Red Blood Cell Count 3.16 M/uL (3.86-4.86)
--- NOTE | 2020-12-18 06:19 | P.DS ---
Admission Date: 12/17/20 Discharge Date: 12/18/20 Primary Care Provider: Melani FELIPE; Nephrology-Dr. Gary Disposition: ROUTINE DISCHARGE Discharge Condition: GOOD Reason for Admission: Epigastric pain, BRADEN Consultations: Nephrology-Dr. Gary Procedures: CT Scan: FINDINGS: The lungs are mildly emphysematous. No focal mass or infiltrate seen.No pleural or pericardial effusion.No intrathoracic adenopathy.Vascular stent at the origin of the left subclavian artery is seen. Aortic arch is atherosclerotic. The liver, spleen, pancreas, adrenal glands and kidneys are within normal limits. No bowel obstruction, free air, free fluid or abscess. The appendix is not identified as a discrete structure, however, no secondary findings of appendicitis are identified. No pathologic lymphadenopathy in the abdomen or pelvis. No worrisome osseous finding. IMPRESSION: Limited noncontrast study is submitted demonstrating no of acute finding. ABUS: FINDINGS: The liver appears mildly enlarged with a coarsened echotexture. No focal liver lesions or intrahepatic biliary dilatation is seen. Cholecystectomy. Common bile duct is normal in caliber measuring 7 mm. Both kidneys are normal in size, shape and echotexture. No hydronephrosis, focal lesion of concern or perinephric fluid. The spleen is normal in size measuring 10 cm. The pancreas and aorta are obscured by bowel gas. The visualized aspects of the IVC are grossly normal. IMPRESSION: Mildly enlarged liver with coarsened/heterogenous echotexture. Chronic underlying inflammation or infection is possible. Cholecystectomy. Medical Problem List: Epigastric pain suspect GERD BRADEN superimposed on CKD 3 COPD on home oxygen Hypothyroidism RLS History of CVA Depression with anxiety Hypertension Chronic tobacco abuse CT scan showing mildly enlarged liver with heterogeneous echotexture likely chronic disease Brief History of Present Illness: 70-year-old female with history of COPD on home oxygen, hypertension, hyperlipidemia, GERD, restless leg syndrome, depression with anxiety, chronic renal disease, and and history of CVA presents emergency department for epigastric pain radiating to the back. Patient reports pain began about 3 days ago and associated with some vomiting, exacerbated with eating or drinking. Patient evaluated in the emergency department, labs relatively unremarkable aside from mild worsening in renal function. CT unremarkable. Patient given IV fluid hydration. IV Protonix started. Patient admitted for observation. Hospital Course: Patient presented with epigastric pain, nausea and vomiting. Patient with chronic renal disease. Patient appears dehydrated. Epigastric pain likely related to underlying GERD. Acute on chronic renal disease noted. Patient was admitted for observation. IV Protonix twice daily and IV fluids initiated. Her diet was advanced. Patient has showed improvement. Patient has seen GI in the past with prior EGD. She does not recall the results of this. CT chest/abd omen/pelvis unremarkable. Abdominal ultrasound shows coarse changes to the liver likely with chronic disease. Hepatitis panel obtained. This can be followed up as an outpatient. At discharge recommend to continue Protonix 40 mg 1 pill twice daily along with carafate with meals. Protonix will need to be decreased to once daily if symptoms worsen. Patient will need follow-up with GI as an outpatient to further address. GI will need to follow-up hepatitis panel. Patient may need repeat EGD as an outpatient to further evaluate. Patient with acute on chronic renal disease stage III. Patient with chronic disease. She sees nephrology. Patient received IV fluids with improvement. Encourage oral intake. Future medications will need to be renally dosed. Recommend no further use of nonsteroidal anti-inflammatories. Recommend to recheck labBMP in 1 to 2 weeks to monitor her progress. Patient with history of COPD on chronic oxygen. Patient also with tobacco use. Tobacco cessation addressed in detail. Patient given Solumedrol IV. Patient will continue with her COPD medicationtrelegy 1 puff daily and albuterol 2 puffs 3 times a day as needed for shortness of breath. Patient will continue with oxygen to maintain sats above 93%. At discharge, will continue with Prednisone 10 mg one pill twice daily for 7 days then one pill once daily for 7 days. Recommend follow-up with pulmonology as directed. Patient with hypothyroidism. At discharge she will continue with her current medicationlevothyroxine 50 mcg daily.. Patient with restless leg syndrome. At discharge she will continue with her medicationRequip 0.5 mg 3 times a day. Patient with history of CVA. At discharge she will continue with her medication aspirin 80 mg daily. Patient with hyperlipidemia. At discharge she will continue with Lopid 600 mg 1 pill twice daily. Patient with hypertension. At discharge we will continue with her medication of Norvasc 5 mg daily and metoprolol 50 mg 1 pill twice daily. Recommend to maintain blood pressure less than 130/80. Further adjustment can be done by her PCP. Patient with depression and anxiety. At discharge she will continue with her medications including Seroquel 200 mg at bedtime, trazodone as directed, and Cymbalta 60 mg daily. Vital Signs/Physical Exam: Temp Pulse Resp BP Pulse Ox 97.4 F 75 16 99/56 L 97 12/18/20 04:00 12/18/20 04:00 12/18/20 04:00 12/18/20 04:00 12/18/20 04:00 General: Alert, In no apparent distress, Oriented x3, Cooperative HEENT: Atraumatic Neck: Supple Respiratory: Clear to auscultation bilaterally, Normal air movement Cardiovascular: Normal pulses, Regular rate/rhythm Gastrointestinal: Normal bowel sounds, No tenderness, No masses, No rebound, No guarding Musculoskeletal: No erythema, No tenderness, No warmth Integumentary: No tenderness/swelling Neurological: Normal speech, Normal strength at 5/5 x4 extr, Normal tone, Normal affect Laboratory Data at Discharge: WBC 3.30 K/uL (4.3-10.9) L D 12/18/20 04:15 Hgb 9.3 g/dL (12.0-15.0) L 12/18/20 04:15 Hct 28.7 % (36.0-45.0) L D 12/18/20 04:15 Plt Count 102 K/uL (152-406) L D 12/18/20 04:15 PT 10.6 SECONDS (9.5-12.5) 12/17/20 14:00 INR 0.92 12/17/20 14:00 Sodium 142 mmol/L (136-145) 12/18/20 04:15 Potassium 4.4 mmol/L (3.5-5.1) 12/18/20 04:15 BUN 21 mg/dL (7-18) H 12/18/20 04:15 Creatinine 1.50 mg/dL (0.55-1.3) H 12/18/20 04:15 Glucose 130 mg/dL (74-106) H 12/18/20 04:15 Magnesium 1.9 mg/dL (1.8-2.4) 12/18/20 04:15 Total Bilirubin 0.3 mg/dL (0.2-1.0) 12/17/20 14:00 AST 7 U/L (15-37) L 12/17/20 14:00 ALT 9 U/L (12-78) L 12/17/20 14:00 Alkaline Phosphatase 85 U/L (45-117) 12/17/20 14:00 Troponin I < 0.02 ng/mL (0.0-0.045) 12/18/20 04:15 Triglycerides 145 mg/dL (<150) 12/18/20 04:15 Cholesterol 110 mg/dL (<200) 12/18/20 04:15 HDL Cholesterol 33 mg/dL (40-60) L 12/18/20 04:15 Cholesterol/HDL Ratio 3.33 12/18/20 04:15 Lipase 427 U/L (73-393) H 12/17/20 14:00 Home Medications: Amlodipine [Norvasc*] 5 mg PO DAILY 06/07/18 Aspirin 81 mg PO DAILY 06/07/18 Cholecalciferol (Vitamin D3) [Vitamin D3] 1,000 unit PO DAILY 06/07/18 Duloxetine HCl 60 mg PO DAILY 06/07/18 Levothyroxine Sodium 50 mcg PO DAILY 06/07/18 Metoprolol Tartrate 50 mg PO BID 06/07/18 Quetiapine Fumarate [Seroquel] 200 mg PO BEDTIME 06/07/18 Ropinirole HCl 0.5 mg PO TID 06/07/18 Trazodone HCl 175 mg PO BEDTIME 06/07/18 gemfibroziL [Lopid*] 600 mg PO BID 06/07/18 Albuterol Inhaler [Ventolin Inhaler*] 2 puff IH QIDP PRN 12/17/20 Fluticasone/Umeclidin/Vilanter [Trelegy Ellipta 100-62.5-25] 1 each IH DAILY 12/17/20 Pantoprazole [Protonix Tab] 40 mg PO BID #60 tab 12/18/20 Sucralfate [Carafate*] 1 gm PO ACHS #90 tab 12/18/20 predniSONE [Deltasone*] 10 mg PO SEECOM #21 tab 12/18/20 New Medications: Sucralfate [Carafate*] 1 gm PO ACHS #90 tab predniSONE [Deltasone*] 10 mg PO SEECOM #21 tab Pantoprazole [Protonix Tab] 40 mg PO BID #60 tab Physician Discharge Instructions: Patient presented with epigastric pain, nausea and vomiting. Patient with chronic renal disease. Patient appears dehydrated. Epigastric pain likely related to underlying GERD. Acute on chronic renal disease noted. Patient was admitted for observation. IV Protonix twice daily and IV fluids initiated. Her diet was advanced. Patient has showed improvement. Patient has seen GI in the past with prior EGD. She does not recall the results of this. CT chest/abdomen/pelvis unremarkable. Abdominal ultrasound shows coarse changes to the liver likely with chronic disease. Hepatitis panel obtained. This can be followed up as an outpatient. At discharge recommend to continue Protonix 40 mg 1 pill twice daily along with carafate with meals. Protonix will need to be decreased to once daily if symptoms worsen. Patient will need follow-up with GI as an outpatient to further address. GI will need to follow-up hepatitis panel. Patient may need repeat EGD as an outpatient to further evaluate. Patient with acute on chronic renal disease stage III. Patient with chronic dis ease. She sees nephrology. Patient received IV fluids with improvement. Encourage oral intake. Future medications will need to be renally dosed. Recommend no further use of nonsteroidal anti-inflammatories. Recommend to recheck labBMP in 1 to 2 weeks to monitor her progress. Patient with history of COPD on chronic oxygen. Patient also with tobacco use. Tobacco cessation addressed in detail. Patient given Solumedrol IV. Patient will continue with her COPD medicationtrelegy 1 puff daily and albuterol 2 puffs 3 times a day as needed for shortness of breath. Patient will continue with oxygen to maintain sats above 93%. At discharge, will continue with Prednisone 10 mg one pill twice daily for 7 days then one pill once daily for 7 days. Recommend follow-up with pulmonology as directed. Patient with hypothyroidism. At discharge she will continue with her current medicationlevothyroxine 50 mcg daily.. Patient with restless leg syndrome. At discharge she will continue with her medicationRequip 0.5 mg 3 times a day. Patient with history of CVA. At discharge she will continue with her medication aspirin 80 mg daily. Patient with hyperlipidemia. At discharge she will continue with Lopid 600 mg 1 pill twice daily. Patient with hypertension. At discharge we will continue with her medication of Norvasc 5 mg daily and metoprolol 50 mg 1 pill twice daily. Recommend to maintain blood pressure less than 130/80. Further adjustment can be done by her PCP. Patient with depression and anxiety. At discharge she will continue with her medications including Seroquel 200 mg at bedtime, trazodone as directed, and Cymbalta 60 mg daily. Diet: AHA Activity: Ad ronald Followup: Kaylene Polo, [employer] [Primary Care Provider] - Time spent managing pt's care (in minutes): 55
[2020-12-18] MEDS ORDERED: LEVOTHYROXINE SOD 0.05 MG TABLET PO SCH (06:30)
[2020-12-18] MEDS: ROPINIROLE HCL 0.25 MG TAB PO SCH ×2 (07:53→13:15)
[2020-12-18] MEDS: PANTOPRAZOLE 40 MG INJ IVP SCH (07:53)
[2020-12-18] MEDS: METOPROLOL TAR 50 MG TAB PO SCH (07:54)
[2020-12-18] MEDS: HEPARIN 5000 UNIT/ML 1 ML VIAL SQ SCH (07:54)
[2020-12-18] MEDS: gemfibroziL 600 MG TAB PO SCH (07:54)
[2020-12-18 08:50] VITALS: TEMP 97.1
[2020-12-18] MEDS ORDERED: AMLODIPINE 5 MG TAB PO SCH (09:00)
[2020-12-18] MEDS ORDERED: ASPIRIN EC 81 MG TAB PO SCH (09:00)
[2020-12-18] MEDS ORDERED: DULOXETINE 30 MG CAP PO SCH (09:00)
[2020-12-18] MEDS: ARFORMOTEROL TARTRATE 15 MCG/2 ML VIAL.NEB NEB SCH (12:15)
[2020-12-18 12:30] LABS: Hematocrit 30.3 % (36.0-45.0)
[2020-12-18] MEDS ORDERED: METHYLPREDNISOLONE 40 MG INJ IV ONE (13:00)
[2020-12-18 13:01] VITALS: BP 106/60
--- NOTE | 2020-12-18 13:06 | P.PN ---
Subjective Date of Service: 12/18/20 Primary Care Provider: Melani MEDICATION AIDE; Nephrology-Dr. Gary Chief Complaint: Epigastric pain, BRADEN Subjective: Improving, Doing well (Less epigastric pain noted. Patient feeling a little bit better. Patient tolerated breakfast. Some wheezing noted) Physical Examination - Vital Signs Temperature: 97.1 F Blood Pressure: 106/60 Pulse: 83 Respirations: 18 Pulse Ox (%): 100 - Studies Laboratory Data (last 24 hrs) 12/17/20 14:45: WBC 5.80, Hgb 11.5 L, Hct 35.6 L, Plt Count 143 L 12/17/20 14:00: Triglycerides 160 H, Cholesterol 128, HDL Cholesterol 36 L, Cholesterol/HDL Ratio 3.56 12/17/20 14:00: PT 10.6, INR 0.92 12/17/20 14:00: WBC Cancelled, Hgb Cancelled, Hct Cancelled, Plt Count Cancelled 12/17/20 14:00: Sodium 137, Potassium 3.9, BUN 20 H, Creatinine 1.78 H, Glucose 88, Magnesium 2.1, Total Bilirubin 0.3, AST 7 L, ALT 9 L, Alkaline Phosphatase 85, Lipase 427 H 12/17/20 12:52: Lipase Cancelled Assessment & Plan Discharge Plan: Home Plan to discharge in: 24 Hours Physician Review Additional Text: CT Scan: FINDINGS: The lungs are mildly emphysematous. No focal mass or infiltrate seen.No pleural or pericardial effusion.No intrathoracic adenopathy.Vascular stent at the origin of the left subclavian artery is seen. Aortic arch is atherosclerotic. The liver, spleen, pancreas, adrenal glands and kidneys are within normal limits. No bowel obstruction, free air, free fluid or abscess. The appendix is not identified as a discrete structure, however, no secondary findings of appendicitis are identified. No pathologic lymphadenopathy in the abdomen or pelvis. No worrisome osseous finding. IMPRESSION: Limited noncontrast study is submitted demonstrating no of acute finding. ABUS: FINDINGS: The liver appears mildly enlarged with a coarsened echotexture. No focal liver lesions or intrahepatic biliary dilatation is seen. Cholecystectomy. Common bile duct is normal in caliber measuring 7 mm. Both kidneys are normal in size, shape and echotexture. No hydronephrosis, focal lesion of concern or perinephric fluid. The spleen is normal in size measuring 10 cm. The pancreas and aorta are obscured by bowel gas. The visualized aspects of the IVC are grossly normal. IMPRESSION: Mildly enlarged liver with coarsened/heterogenous echotexture. Chronic underlying inflammation or infection is possible. Cholecystectomy. Physical exam: General: Patient alert, cooperative Neck: Supple Heart: Regular rate and rhythm Lungs: Some wheezing bilateral patient on nasal cannula Abdomen: Soft no significant epigastric pain Extremities: No focal deficits. No edema Medical Problem List: Epigastric pain suspect GERD BRADEN superimposed on CKD 3 COPD on home oxygen Hypothyroidism RLS History of CVA Depression with anxiety Hypertension Chronic tobacco abuse CT scan showing mildly enlarged liver with heterogeneous echotexture likely chronic disease Plan: Epigastric pain suspect GERD: Continue with Protonix twice a day. We will add Carafate before meals at bedtime. Patient with prior EGD and seen by GI. Patient likely requires repeat EGD as an outpatient. Abdominal ultrasound shows likely chronic liver disease. Hepatitis panel pending. Encourage oral intake. Encourage ambulation with physical therapy. If improved will consider discharge later today. BRADEN superimposed on CKD 3: Continue with IV fluids. Encourage oral intake. Await recommendations by nephrology. Possible discharge if improved. COPD on home oxygen: Some wheezing noted. Will provide Solu-Medrol 40 mg x 1. Continue COPD medication. Maintain hemoglobin. Patient has home oxygen. Hypothyroidism: Continue levothyroxine 50 mcg daily. RLS: Continue Requip 0.5 mg 1 pill 3 times a day History of CVA: Continue aspirin 81 mg daily Depression with anxiety: Continue Seroquel 200 mg at bedtime, trazodone as directed, and Cymbalta 60 mg daily. Hypertension: Continue Norvasc 5 mg daily and metoprolol 50 mg 1 pill twice daily. Chronic tobacco abuse: Continue nicotine patch. Tobacco cessation addressed. CT scan showing mildly enlarged liver with heterogeneous echotexture likely chronic disease: Recommend follow-up with GI as an outpatient to further evaluate. Hepatitis panel pending at discharge. Time Spent Managing Pts Care (In Minutes): 55
[2020-12-18 13:31] VITALS: O2SAT 96
--- NOTE | 2020-12-18 16:23 | CON ---
Date of Consultation: 12/18/2020 History Of Present Illness: The patient is alert, awake, has some oxygen in place. She states that she has COPD and has this problem for a long time. She presented to the hospital because of her GI u pset, nausea. She feels like her reflux was acting up. She takes pantoprazole at home. She is look ing comfortable currently. Breathing comfortably. O2 sats are close to 100% on about 3 L nasal gely buck. She is resting. Physical Examination: Lungs: Clear with decreased breath sounds bilaterally. Abdomen: Soft. Extremities: Reveal no edema. Heart: Sounds are regular. Neurologic: The patient is talking in full sentences and looks pretty comfortable. Past Medical History: The patient has history of COPD. She is oxygen dependent, has oxygen at home. History of ulcerative colitis, history of GERD. She does use a PPI. History of anxiety, restless legs syndrome, chronic kidney disease. She does not recall exactly her creatinine runs, but she thin ks it is in the low 1 range. Currently, the creatinine is at 1.5. Family History: Noncontributory. Social History: The patient has a smoking history. She does not drink alcohol or use any drugs. Laboratory Data: Reviewed. WBC count 3.3; hemoglobin 9.3, repeat is 9.8; hematocrit 30.3; WBC count earlier was 5.8; platelet count of 102. Chemistry shows sodium 142, potassium 4.4, chloride 111, bi carb is 28, BUN is 21, creatinine is 1.5. This is an improvement from 20 and 1.78. Glucose 130, christa cium 8.1, CK-MB was 1.6. LDL at 48, HDL at 33, TSH at 3.3. Assessment And Plan: The patient with chronic kidney disease, presents with acute kidney disease in the setting of gastroesophageal reflux disease in the setting of GI upset, not being able to eat and drink much, seems to be slightly volume depleted, pre-renal azotemia. Lungs and volume status seems to be at baseline. She actually seems to be slightly volume depleted. Has already gotten IV fluids with D5 normal saline and has recovered well with that. Her creatinine has come down to now 1.5. Sharmila camarena is eating and drinking, does not have any nausea. Feels comfortable. Feels close to her baseline. From the kidney point of view, I think the patient is ready for discharge. Can follow up with Dr. 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 I have advised the patient to do this. She knows how to make cee ointment. Made need prednisone for few more days to help her with her COPD exacerbation as her breat bobby was slightly labored compared to her baseline, but she is improving already. Consider low dose of steroid on discharge and while she is taking the steroids, she can double up on her pantoprazole t o take it twice a day. I have also advised the patient to take B12 supplement as the pantoprazole ma y decrease absorption of B12. The patient understands all this and says that she will keep her follo wup appointments. I will keep hydrated. If any change in condition, she will come back to the emerg ency room. /LUCIA Voice ID: [id number] Report ID: [id number]
[2020-12-18] MEDS ORDERED: SUCRALFATE 1 GM TABLET PO SCH (16:30)
== END 2020-12-18 16:45 | disposition home or self-care (01) ==
LOC: ER 11:55 → ERHOLD 18:02 → 4TH 20:14
PROVIDERS: ADMIT Family Medicine; ATTEND Family Medicine
DX: R10.13 Epigastric pain (principal); K21.9 Gastro-esophageal reflux disease without esophagitis; I12.9 Hypertensive chronic kidney disease with stage 1 through stage 4 chronic kidney disease, or unspecified chronic kidney disease; N17.9 Acute kidney failure, unspecified; N18.30 Chronic kidney disease, stage 3 unspecified; J44.9 Chronic obstructive pulmonary disease, unspecified; Z99.81 Dependence on supplemental oxygen; E03.9 Hypothyroidism, unspecified; G25.81 Restless legs syndrome; K51.90 Ulcerative colitis, unspecified, without complications; F41.8 Other specified anxiety disorders; E78.5 Hyperlipidemia, unspecified; I73.9 Peripheral vascular disease, unspecified; R16.0 Hepatomegaly, not elsewhere classified; M19.90 Unspecified osteoarthritis, unspecified site; F17.210 Nicotine dependence, cigarettes, uncomplicated; Z71.6 Tobacco abuse counseling; Z20.822 Contact with and (suspected) exposure to COVID-19; Z88.8 Allergy status to other drugs, medicaments and biological substances; Z91.041 Radiographic dye allergy status; Z91.048 Other nonmedicinal substance allergy status; Z79.82 Long term (current) use of aspirin; Z86.73 Personal history of transient ischemic attack (TIA), and cerebral infarction without residual deficits; Z90.49 Acquired absence of other specified parts of digestive tract; Z90.710 Acquired absence of both cervix and uterus; Z82.49 Family history of ischemic heart disease and other diseases of the circulatory system
CPT/HCPCS: 93005; 87040 ×2; 87088; 85025 ×2; 87086; 80048 ×2; 36415; 83735 ×2; 82550 ×2; 85610; 80061 ×2; 82565; 80076; 84443; 85018; 85014; 81003; 84484 ×3; 82553 ×2; 84439; 83690; 83880; 71250; 74176; 71045; 76700; 97116 ×2; 97162; 94640; 96375; 96374; 99285; U0003; J1644 ×2; C9113 ×2; J2270 ×4; J7605 ×2; J7042 ×2; J7030; J2405; J2920; G0378 ×3; J1200

== ENCOUNTER 2021-03-01 15:11 | Emergency (ER) | payer OTHER ==
--- OUTSIDE RECORDS SUMMARY | 2021-03-01 15:20 | XMS REPORT | Continuity of Care Document ---
:1950 Author Organization [facility] t Address [address] [place] [address] Care Team Providers Name Role Phone Unavailable Unavailable Unavailable Problems This patient has no known problems. Allergies, Adverse Reactions, Alerts Allergy Allergy Status Severity Reaction(s) Onset Inactive Treating Comm ents Source Name Type Date Date Clinician Iodine Adverse Active rash [facility] Baclofen Adverse Active sever [facility] Ambien Adverse Active makes crazy [facility] Medications Ordered Filled Start Stop Current Ordering Indication Dosage Frequency Signature Comments Components Source Medication Medication Date Date Medication? Clinician (SIG) Name Name Sonu Ascencio 2018-06 2020- No Kaylene [address] [facility] Ellipta Ellipta 1-26 01-25 [facility] Ondansetron Ondansetron 0 Yes Kaylene [address] [facility] HCl HCl 9-27 [facility] as needed [facility] Aspirin Aspirin Yes Kaylene [address] [facility] Adult Low Adult Low [facility] - Strength Strength [facility] Seroquel Seroquel Yes Kaylene [address] [facility] Ventolin Ventolin Yes Kaylene INHALE ONE [facility] HFA HFA [facility] TO TWO [facility] PU[facility]S BY [facility] MOUTH l EVERY 6 Outpati HOURS ent NEEDED FOR Clinics WHEEZING Metoprolol Metoprolol Yes Kaylene TAKE [address] [facility] Tartrate Tartrate Wayne TABLET BY L [facility] - MOUTH Memoria TWICE l DAILY WITH [facility] Levothyroxi Levothyroxi Yes Kaylene [address] [facility] ne Sodium ne Sodium Wayne on an Pam es - empty [facility] stomach in l the [facility] morning ent Clinics Cymbalta Cymbalta Yes Kaylene [address] [facility] Vitamin D3 Vitamin D3 Yes Kaylene [address] [facility] Ropinirole Ropinirole Yes Kaylene TAKE ONE [facility] HCl HCl [facility] TABLET BY [facility]TH [facility] THREE l TIMES [facility] DAILY ent Clinics Amlodipine Amlodipine Yes Kaylene take one [facility] Besylate Besylate Wayne tablet by L ukes - mouth once [facility] daily l [facility] Lopressor Lopressor Yes Kaylene [address] [facility] [place] with food [facility] Albuterol Albuterol Yes Kaylene 3 ml as [facility] Sulfate Sulfate [facility] needed [facility] Trazodone Trazodone Yes Kaylene [address] HCl HCl [facility] Gemfibrozil Gemfibrozil Yes Kaylene TAKE [address] [facility] [place] TABLET BY [facility] TWICE l DAILY [facility] Pantoprazol Pantoprazol Yes Kaylene [address] [facility] Sodium e Sodium [facility] Procedures This patient has no known procedures. Encounters Start End Encounter Admission Attending Care Care Encounter Source Date/Time Date/Time Type Type Clinicians Facility Department ID 2021-01-25 2021-01-[address] [facility] [id number] [facility] 2020-12-21 2020-12-[address] [facility] [id number] [facility] 2020-12-17 2020-12-[address] [facility] [id number] [facility] 2020-09-15 2020-09-15 Out[facility] [id number] [facility] 2020-08-30 2020-08-30 Out[facility] [id number] [facility] 2020-08-27 2020-08-27 Out[facility] [id number] [facility] 2020-08-26 2020-08-26 Out[facility] [id number] [facility] 2020-06-01 2020-06-01 Outpatient [facility] [id number] [facility] 2019-12-16 2019-12-16 [facility] [id number] [facility]18[facility] 09[facility]18[facility]00 [facility] 2019-11-27 2019-11-27 [facility] [id number] [facility] 13:[facility]00 13:00[facility]00 [facility] 2019-10-29 2019-10-29 [facility] [id number] [facility] 09:20[facility]00 09:20[facility]00 [facility] 2019-08-26 2019-08-26 [facility] [id number] 10:[facility]00 10:00:00 [facility] 2019-08-14 2019-08-14 [facility] [id number] [facility] 10[facility]40[facility]00 10:40:00 [facility] 2019-07-09 2019-07-09 [facility] [id number] 14:20[facility]00 14:20:00 [facility] 2019-06-27 2019-06-27 Outpatient Luis Fernando Lujan [id number] 10:20:00 10:20:00 [facility] Clinics Results This patient has no known results.
[2021-03-01 18:43] LABS: ALT/SGPT 8 U/L (12-78); AST/SGOT 14 U/L (15-37); Absolute Lymphocytes (CBC) 0.5 K/uL (0.7-4.9); Albumin 3.3 g/dL (3.4-5.0); Alkaline Phosphatase 74 U/L (45-117); BUN Blood Urea Nitrogen 20 mg/dL (7-18); Basophils % 0.2 % (0-1.3); Bicarbonate 24 mmol/L (21-32); Bilirubin Direct < 0.1 mg/dL (0-0.2); Bilirubin Total 0.2 mg/dL (0.2-1.0); Glucose Level 90 mg/dL (74-106); Hematocrit 30.8 % (36.0-45.0); Lymphocytes % 12.5 % (15.3-44.8); MPV 10.5 fL (7.6-11.3); Magnesium 2.2 mg/dL (1.8-2.4); NT PRO-BNP 348 pg/mL (<125); Potassium 3.4 mmol/L (3.5-5.1); Protein, Total 7.5 g/dL (6.4-8.2); RBC Red Blood Cell Count 3.38 M/uL (3.86-4.86); Sodium Level 139 mmol/L (136-145); Troponin (Emerg Dept Use Only) < 0.02 ng/mL (0.0-0.045)
[2021-03-01] MEDS ORDERED: METHYLPREDNISOLONE 125 MG INJ ONE (19:10)
[2021-03-01 19:28] LABS: Protime INR 0.99
--- NOTE | 2021-03-01 19:28 | RAD REPORT ---
EXAM DESCRIPTION: RAD - Chest Single View - 03/01/2021 6:16 pm CLINICAL HISTORY: DYSPNEA COMPARISON: December 17 TECHNIQUE: AP portable chest image was obtained 03/01/2021 6:16 pm . FINDINGS: Fibrotic lung pattern again noted. No new consolidation identifiable. There is a small rou nd nodular focus between the posterior fifth and sixth ribs on the left. This was not seen December 17. M ass formation would not be expected in this short interval. This may be a scarring or summation artif act. This can be monitored on a follow-up examination in 4-6 weeks. Failure and volume overload are not suspected. Heart and vasculature are normal. No pneumothorax iden tified. Chronic costophrenic angle blunting noted. No new or enlarging pleural effusion. No acute bon y abnormality seen. No acute aortic findings suspected. IMPRESSION: COPD findings are present with no acute infiltrate identifiable. Small nodule left upper lung field is not seen December 17. Repeat chest film in 4-6 weeks would be recom mended to see if this is a persistent finding.
[2021-03-01] MEDS ORDERED: ALBUTEROL 2.5 MG/3 ML NEB SOL ONE (19:41)
[2021-03-01] MEDS ORDERED: IPRATROPIUM BROM 0.5MG/2.5ML ONE (19:41)
--- NOTE | 2021-03-01 19:58 | ER ---
Nurse's Notes [facility] Name: Louise Raines Age: 70 yrs Sex: Female : 1950 Arrival Date: 03/01/2021 Time: 15:12 Bed 27 Private MD: Kaylene Polo Diagnosis: COPD/ Chronic obstructive pulmonary disease with (acute) exacerbation;Acute upper respiratory infection, unspecified Presentation: 03/01 15:20 Chief complaint: Patient states: Cough, congestion, SOB for 4 days. Wears O2 all the ll1 time for 2 months, higher liters than normal for 1 month. No fever. + N/V/D. Coronavirus screen: Vaccine status: Patient reports being unvaccinated. congestion, cough unrelated to allergies, difficulty breathing, fatigue, shortness of breath, Client presents with at least one sign or symptom that may indicate coronavirus-19. Standard/surgical mask placed on the client. Ebola Screen: Patient denies travel to an Ebola-affected area in the 21 days before illness onset. Initial Sepsis Screen: Does the patient meet any 2 criteria? RR > 20 per min. HR > 90 bpm. No. Patient's initial sepsis screen is negative. Does the patient have a suspected source of infection? Yes: Productive cough/pneumonia. Risk Assessment: Do you want to hurt yourself or someone else? Patient reports no desire to harm self or others. Onset of symptoms was February 26, 2021. 15:20 Method Of Arrival: Wheelchair ll1 15:20 Acuity: JAIME 2 ll1 Triage Assessment: 19:08 General: Appears in no apparent distress. Behavior is calm, cooperative, appropriate kh1 for age. Pain: Denies pain. Respiratory: Reports shortness of breath cough that is Onset: The symptoms/episode began/occurred gradually, the patient has mild shortness of breath. 19:52 General: Appears in no apparent distress. Behavior is calm, cooperative, appropriate kc4 for age, Denies fever, chills. Pain: Denies pain. Cardiovascular: Pulses are all present. Rhythm is sinus tachycardia. Respiratory: Reports shortness of breath cough that is non-productive, Onset: The symptoms/episode began/occurred gradually, the patient has mild shortness of breath. Historical: - Allergies: 15:16 Adhesives; ll1 15:16 ambien; ll1 15:16 Iodine; ll1 - PMHx: 15:16 COPD; Hypertension; Hypothyroidism; ulcerative colitis; ll1 - Immunization history:: Adult Immunizations up to date, Client reports having NOT received the Covid vaccine. Pneumococcal vaccine is up to date, Flu vaccine status is unknown. - Social history:: Smoking status: Patient/guardian denies using tobacco, Stopped _ months ago .1. - Family history:: pertinent for. - Code Status:: Full code. Screenin:08 Abuse screen: Denies threats or abuse. Nutritional screening: No deficits noted. kh1 Tuberculosis screening: No symptoms or risk factors identified. Fall Risk Secondary diagnosis (15 points) IV access (20 points). Gait- Weak (10 pts.). Assessment: 19:08 Cardiovascular: Reports shortness of breath, Rhythm is sinus tachycardia. kh1 19:10 Respiratory: Airway is patent Respiratory effort is even, unlabored. kh1 20:37 Respiratory: Airway Respiratory effort is unlabored, Breath sounds with crackles kc4 bilaterally. Vital Signs: 15:20 BP 143 / 53; Pulse 113; Resp 22; Temp 98.0; Pulse Ox 93% on 4 lpm NC; Weight 40.82 kg; ss Height 5 ft. 0 in. (152.40 cm); Pain 9/10; 15:24 Temp 98.0; ll1 19:11 BP 144 / 60; Pulse 113; Resp 17; Temp 98.6(TE); Pulse Ox 100% on 2 lpm NC; kh1 19:20 BP 139 / 92; Pulse 115; Resp 20; Temp 98.8(O); Pulse Ox 98% on 2 lpm NC; kc4 15:20 Body Mass Index 17.58 (40.82 kg, 152.40 cm) ED Course: 15:12 Patient arrived in ED. am2 15:13 Kaylene Polo FNP-C is Private Physician. am2 15:16 Arm band placed on. ll1 15:23 Triage completed. ll1 17:17 Robert Rasmussen PA is PHCP. jr8 17:17 Malcolm Teran MD is Attending Physician. jr8 18:16 XRAY Chest (1 view) In Process Unspecified. EDMS 18:30 Inserted saline lock: 22 gauge in right wrist, using aseptic technique. aj2 18:36 Martha Eason is Primary Nurse. kh1 18:46 Basic Metabolic Panel Sent. kh1 18:46 LFT's Sent. kh1 18:53 PT-INR Sent. kh1 19:08 Allergy band placed. Placed in gown. Bed in low position. Call light in reach. Side kh1 rails up X 1. 19:08 No provider procedures requiring assistance completed. kh1 19:57 Mustapha Del Rio MD is Referral Physician. jr8 20:38 IV discontinued, Pressure dressing applied. kc4 Administered Medications: 18:53 Drug: SOLU-Medrol (methylPrednisoLONE) 125 mg Route: IVP; Site: right wrist; kh1 19:56 Follow up: Response: No adverse reaction kc4 19:22 Drug: Albuterol - atroVENT (ipratropium) (3:1) (2.5 mg - 0.5 mg) 3 ml Route: Nebulizer; kc4 19:56 Follow up: Response: No adverse reaction kc4 19:50 Drug: Tylenol 1000 mg Route: PO; kc4 19:56 Follow up: Response: No adverse reaction kc4 Outcome: 19:58 Discharge ordered by . jr8 20:37 Discharged to home via wheelchair, with family. kc4 20:38 Condition: stable kc4 20:38 Discharge instructions given to patient, family, Instructed on discharge instructions, follow up and referral plans. Demonstrated understanding of instructions, follow-up care, medications. 20:47 Patient left the ED. kc4 Signatures: Dispatcher [employer] EDMS Ashley Crocker RN RN ss Robert Rasmussen PA PA jr8 Connie Maddox am2 Inocencio Ruby RN RN 1 Martha Eason 1 Augustin Alonzo2 Osiris Galloway kc4 Corrections: (The following items were deleted from the chart) 15:30 15:20 BP 143 / 53; Pulse 113bpm; Resp 22bpm; Pulse Ox 93%; 40.82 kg; Height 5 ft. 0 ss in.; BMI: 17.5; Pain 9/10; ll1 15:30 15:20 BP 143 / 53; Pulse 113bpm; Resp 22bpm; Pulse Ox 93% 4 lpm Nasal Cannula; Temp ss 98.6F; 40.82 kg; Height 5 ft. 0 in.; BMI: 17.5; Pain 9/10; ss 19:52 19:20 BP 139 / 92; Pulse 115bpm; Resp 20bpm; kc4 kc4
--- NOTE | 2021-03-01 19:58 | EDPHYS ---
Physician Documentation [facility] Name: Louise Raines Age: 70 yrs Sex: Female : 1950 Arrival Date: 03/01/2021 Time: 15:12 Bed 27 Private MD: Kaylene Polo ED Physician Malcolm Teran HPI: 03/01 18:22 This 70 yrs old Female presents to ER via Wheelchair with complaints of jr8 Breathing Difficulty, Cough, Congestion. 18:22 The patient has shortness of breath at rest. Onset: The symptoms/episode began/occurred jr8 gradually, 4 day(s) ago. Duration: The symptoms are continuous, and are steadily getting worse. The patient's shortness of breath is aggravated by light activity. Associated signs and symptoms: Pertinent positives: productive cough. Severity of symptoms: At their worst the symptoms were moderate in the emergency department the symptoms are unchanged. The patient has not experienced similar symptoms in the past. The patient has not recently seen a physician. Historical: - Allergies: 15:16 Adhesives; ll1 15:16 ambien; ll1 15:16 Iodine; ll1 - PMHx: 15:16 COPD; Hypertension; Hypothyroidism; ulcerative colitis; ll1 - Immunization history:: Adult Immunizations up to date, Client reports having NOT received the Covid vaccine. Pneumococcal vaccine is up to date, Flu vaccine status is unknown. - Social history:: Smoking status: Patient/guardian denies using tobacco, Stopped _ months ago .1. - Family history:: pertinent for. - Code Status:: Full code. ROS: 18:22 Eyes: Negative for injury, pain, redness, and discharge, ENT: Negative for injury, jr8 pain, and discharge. Positive for rhinorrhea and sneezing Neck: Negative for injury, pain, and swelling, Cardiovascular: Negative for chest pain, palpitations, and edema, Abdomen/GI: Negative for abdominal pain, nausea, vomiting, diarrhea, and constipation, Back: Negative for injury and pain, MS/Extremity: Negative for injury and deformity, Skin: Negative for injury, rash, and discoloration, Neuro: Negative for headache, weakness, numbness, tingling, and seizure. 18:22 Respiratory: Positive for cough, shortness of breath, wheezing. Exam: 18:22 Eyes: Pupils equal round and reactive to light, extra-ocular motions intact. Lids and jr8 lashes normal. Conjunctiva and sclera are non-icteric and not injected. Cornea within normal limits. Periorbital areas with no swelling, redness, or edema. ENT: Nares patent. No nasal discharge, no septal abnormalities noted. Tympanic membranes are normal and external auditory canals are clear. Oropharynx with no redness, swelling, or masses, exudates, or evidence of obstruction, uvula midline. Mucous membranes moist. Neck: Trachea midline, no thyromegaly or masses palpated, and no cervical lymphadenopathy. Supple, full range of motion without nuchal rigidity, or vertebral point tenderness. No Meningismus. Cardiovascular: Regular rate and rhythm with a normal S1 and S2. No gallops, murmurs, or rubs. Normal PMI, no JVD. No pulse deficits. Abdomen/GI: Soft, non-tender, with normal bowel sounds. No distension or tympany. No guarding or rebound. No evidence of tenderness throughout. Back: No spinal tenderness. No costovertebral tenderness. Full range of motion. Skin: Warm, dry with normal turgor. Normal color with no rashes, no lesions, and no evidence of cellulitis. MS/ Extremity: Pulses equal, no cyanosis. Neurovascular intact. Full, normal range of motion. Neuro: Awake and alert, GCS 15, oriented to person, place, time, and situation. Cranial nerves II-XII grossly intact. Motor strength 5/5 in all extremities. Sensory grossly intact. Cerebellar exam normal. Normal gait. 18:22 Respiratory: the patient does not display signs of respiratory distress, Respirations: tachypnea, that is mild, Breath sounds: wheezing: expiratory that is moderate, is heard diffusely. Vital Signs: 15:20 BP 143 / 53; Pulse 113; Resp 22; Temp 98.0; Pulse Ox 93% on 4 lpm NC; Weight 40.82 kg; ss Height 5 ft. 0 in. (152.40 cm); Pain 9/10; 15:24 Temp 98.0; ll1 19:11 BP 144 / 60; Pulse 113; Resp 17; Temp 98.6(TE); Pulse Ox 100% on 2 lpm NC; kh1 19:20 BP 139 / 92; Pulse 115; Resp 20; Temp 98.8(O); Pulse Ox 98% on 2 lpm NC; kc4 15:20 Body Mass Index 17.58 (40.82 kg, 152.40 cm) ss MDM: 17:17 Patient medically screened. jr8 19:55 Data reviewed: vital signs, nurses notes, lab test result(s), EKG, radiologic studies, jr8 plain films. Data interpreted: Pulse oximetry: on 3L(s) per nasal canula, is 98 %. Interpretation: normal. Counseling: I had a detailed discussion with the patient and/or guardian regarding: the historical points, exam findings, and any diagnostic results supporting the discharge/admit diagnosis, lab results, radiology results, the need for outpatient follow up, a diaphragm builder, to return to the emergency department if symptoms worsen or persist or if there are any questions or concerns that arise at home. ED course: Patient has remained stable while in the emergency room. Patient has been between 98 and 100% on 3 L which is standard for her. Patient stated she is always mildly tachycardic which is normal for her. Otherwise has been hemodynamically stable. No signs of pneumonia on chest x-ray, no increase in white cell count, stable renal function for patient. No other acute findings on labs or ECG. Recommended breathing treatments, steroids, Levaquin for her COPD exacerbation at this time. If she were to get worse to come back for admission otherwise we will continue treatments at home. Family and patient good with this plan at this time.. 03/01 17:49 Order name: Basic Metabolic Panel [facility] [place] 03/01 17:49 Order name: CBC with Diff; Complete Time: 19:05 [facility] [place] 03/01 17:49 Order name: LFT's 03/01 17:49 Order name: Magnesium; Complete Time: 19:05 [facility] [place] 03/01 17:49 Order name: NT PRO-BNP; Complete Time: 19:05 [facility] [place] 03/01 17:49 Order name: PT-INR; Complete Time: 19:43 [facility] [place] 03/01 17:49 Order name: Troponin (emerg Dept Use Only); Complete Time: 19:05 [facility] [place] 03/01 17:49 Order name: XRAY Chest (1 view); Complete Time: 19:43 [facility] [place] 03/01 17:50 Order name: Basic Metabolic Panel; Complete Time: 19:05 EDMS 03/01 17:50 Order name: Liver (Hepatic) Function; Complete Time: 19:05 EDND 03/01 19:49 Order name: SARS-COV-2 RT PCR; Complete Time: 19:51 [facility] 03/01 17:49 Order name: EKG; Complete Time: 17:50 8 03/01 17:49 Order name: Cardiac monitoring; Complete Time: 18:46 8 03/01 17:49 Order name: EKG - Nurse/Tech; Complete Time: 18:46 8 03/01 17:49 Order name: IV Saline Lock; Complete Time: 18:46 8 03/01 17:49 Order name: Labs collected and sent; Complete Time: 18:46 8 03/01 17:49 Order name: O2 Per Protocol; Complete Time: 18:46 03/01 17:49 Order name: O2 Sat Monitoring; Complete Time: 18:46 jr Administered Medications: 18:53 Drug: SOLU-Medrol (methylPrednisoLONE) 125 mg Route: IVP; Site: right wrist; kh1 19:56 Follow up: Response: No adverse reaction kc4 19:22 Drug: Albuterol - atroVENT (ipratropium) (3:1) (2.5 mg - 0.5 mg) 3 ml Route: Nebulizer; kc4 19:56 Follow up: Response: No adverse reaction kc4 19:50 Drug: Tylenol 1000 mg Route: PO; kc4 19:56 Follow up: Response: No adverse reaction kc4 Disposition: 03/02 08:09 Co-signature as Attending Physician, Malcolm Teran MD I agree with the assessment and gael plan of care. Disposition Summary: 03/01/21 19:58 Discharge Ordered Location: Home [facility] [place] Problem: new jr8 Symptoms: have improved jr8 Condition: Stable jr8 Diagnosis - COPD/ Chronic obstructive pulmonary disease with (acute) exacerbation jr8 - Acute upper respiratory infection, unspecified jr8 Followup: jr8 - With: Mustapha Del Rio MD - When: 5 - 6 days - Reason: Recheck today's complaints, Continuance of care, Re-evaluation by your physician Discharge Instructions: - Discharge Summary Sheet jr8 - Chronic Obstructive Pulmonary Disease jr8 - Upper Respiratory Infection, Adult jr8 Forms: - Medication Reconciliation Form jr8 - Thank You Letter jr8 - Antibiotic Education jr8 - Prescription Opioid Use jr8 Prescriptions: - albuterol sulfate 90 mcg/actuation Inhalation HFA aerosol inhaler - inhale 2 puff by INHALATION route every 4 hours; 1 Inhaler; Refills: 0, Product jr8 Selection Permitted - Prednisone 20 mg Oral Tablet - take 1 tablet by ORAL route once daily for 5 days; 5 tablet; Refills: 0, jr8 Product Selection Permitted - Albuterol Sulfate 2.5 mg /3 mL (0.083 %) Inhalation Solution for Nebulization - inhale 1 unit by NEBULIZATION route every 8 hours As needed; 1 box; Refills: 0, jr8 Product Selection Permitted - levofloxacin 750 mg Oral Tablet - take 1 tablet by ORAL route every other day; 7 tablet; Refills: 0, Product jr8 Selection Permitted Signatures: Dispatcher [employer] EDMS Malcolm Teran MD MD cha Roszak, Josh, PA PA jr8 Inocencio Ruby RN RN ll1 Martha Eason 1 Osiris Galloway kc4 Corrections: (The following items were deleted from the chart) 03/01 18:48 17:51 CORONAVIRUS+MR.LAB.BRZ ordered. [facility] EDMS
[2021-03-01] MEDS ORDERED: ACETAMINOPHEN 500 MG TAB ONE (20:08)
[2021-03-01 20:58] VITALS: BP 139/92; TEMP 98.8; O2SAT 98
--- NOTE | 2021-03-02 11:28 | EKG ---
Test Date: 2021-03-01 Test Time: 17:29:02 Spectral Scientist: HINA MEASUREMENT RESULTS: Intervals: Rate: 115 KS: 120 QRSD: 76 QT: 336 QTc: 464 [place]: P: 82 KS: 120 QRS: 65 T: 97 INTERPRETIVE STATEMENTS: Sinus tachycardia Biatrial enlargement Left ventricular hypertrophy with repolarization abnormality Abnormal ECG Compared to ECG 12/17/2020 12:21:19 Atrial abnormality now present Left ventricular hypertrophy now present Early repolarization now present Sinus rhythm no longer present Electronically Signed On 03-02-21 11:26:32 CDT by Bryan Chowdhury
== END 2021-03-01 20:47 | disposition home or self-care (01) ==
LOC: ER 15:11
DX: J44.1 Chronic obstructive pulmonary disease with (acute) exacerbation (principal); J06.9 Acute upper respiratory infection, unspecified; I10 Essential (primary) hypertension; Z20.822 Contact with and (suspected) exposure to COVID-19; Z88.8 Allergy status to other drugs, medicaments and biological substances; Z91.048 Other nonmedicinal substance allergy status
CPT/HCPCS: 93005; 85025; 80048; 36415; 83735; 85610; 80076; 84484; 83880; 71045; 96374; 99285; U0003; J2930

== ENCOUNTER 2022-03-13 15:08 | Emergency (ER) | payer OTHER ==
--- OUTSIDE RECORDS SUMMARY | 2022-03-13 15:12 | XMS REPORT | Continuity of Care Document ---
:1950 Author Organization [facility] t Address [address] [place] [address] Care Team Providers Name Role Phone Melani Kaylene Attending Clinician Unavailable Problems This patient has no known problems. Allergies, Adverse Reactions, Alerts Allergy Allergy Status Severity Reaction(s) Onset Inactive Treating Comm ents Source Name Type Date Date Clinician Iodine Adverse Active rash Common Reaction [facility] Baclofen Adverse Active sever Common Reaction sleepiness Spir it [facility] Ambien Adverse Active makes crazy Comm on Reaction [facility] Medications Ordered Filled Start Stop Current Ordering Indication Dosage Frequency Signature Comments Components Source Medication Medication Date Date Medication? Clinician (SIG) Name Name Sonu Ascencio 2018-06 2020- No Kaylene 1 puff Com mon Ellipta Ellipta 1-26 -25 [place] [facility] 00:00: 00:00 - [facility] 00 :00 [facility] Ondansetron Ondansetron Yes Kaylene 1 tablet Common HCl HCl 9-27 [place] as needed [facility] 00:00: - [facility] 00 [facility] Aspirin Aspirin Yes Kaylene 1 tablet Comm on Adult Low Adult Low [place] [facility] it Strength Strength [facility] Seroquel Seroquel Yes Kaylene 1 tablet Co mmon [place] [facility] Ventolin Ventolin Yes Kaylene INHALE ONE Common HFA HFA [place] TO TWO Spirit PUFFS BY - [facility] MOUTH [facility] EVERY [facility] NEEDED FOR Center WHEEZING Metoprolol Metoprolol Yes Kaylene TAKE 1 Common Tartrate Tartrate [place] TABLET BY S pirit MOUTH - [facility] TWICE St DAILY WITH [facility] Levothyroxi Levothyroxi Yes Kaylene 1 tablet Common ne Sodium ne Sodium [place] on an Spi rit empty - [facility] stomach in [facility] Cymbalta Cymbalta Yes Kaylene 1 capsule C ommon [place] [facility] Vitamin D3 Vitamin D3 Yes Kaylene 1 capsule Common [place] [facility] Ropinirole Ropinirole Yes Kaylene TAKE ONE Common HCl HCl [place] TABLET BY Spirit MOUTH - [facility]I THREE TIMES [facility] Amlodipine Amlodipine Yes Kaylene take one Common Besylate Besylate [place] tablet by S pirit mouth once - [facility] daily [facility] Lopressor Lopressor Yes Kaylene 1 tablet Common [place] with food [facility] Albuterol Albuterol Yes Kaylene 3 ml as C ommon Sulfate Sulfate [place] needed [facility] Trazodone Trazodone Yes Kaylene 3 tabs Co mmon HCl HCl [place] [facility] Gemfibrozil Gemfibrozil Yes Kaylene TAKE 1 Common [place] TABLET BY Spirit MOUTH - [facility]I TWICE [facility] Pantoprazol Pantoprazol Yes Kaylene 1 tablet Common e Sodium e Sodium [place] [facility] Procedures This patient has no known procedures. Encounters Start End Encounter Admission Attending Care Care Encounter Source Date/Time Date/Time Type Type Clinicians Facility Department ID 2022-03-03 [facility] [id number] Common 08:01:00 Kaylene [facility] 2021-11-03 Outpatient LUTHER Polo [facility] [id number] Common 09:35:00 Kaylene [facility] 2021-10-27 Outpatient Melani [facility] [id number] Common 17:04:00 Kaylene [facility] 2021-10-25 Outpatient [facility] [id number] Common 11:15:01 Kaylene [facility] 2021-07-20 Outpatient Melani L[facility]HER [facility] [id number] Common 14:06:12 Kaylene [id number] [facility] 2021-07-20 Outpatient [place], STLMLC STLMLC [id number] Common 12:10:57 Kaylene [id number] [facility] 2021-07-20 Outpatient [place], STLMLC STLMLC [id number] Common 11:20:37 Kaylene [id number] [facility] 2021-07-20 Outpatient [place], STLMLC STLMLC [id number] Common 11:08:50 Kaylene [id number] [facility] 2021-07-20 Outpatient [place], STLMLC STLMLC [id number] Common 11:00:43 Kaylene [id number] [facility] 2021-07-20 Outpatient [place], STLMLC STLMLC [id number] Common 10:57:27 Kaylene [id number] [facility] 2022-02-23 2022-02-23 ambulatory STLMLC STLMLC [id number] Common 00:00:00 00:00:00 [facility] 2022-02-23 2022-02-23 ambulatory STLMLC STLMLC [id number] Common 00:00:00 00:00:00 [facility] 2021-10-27 2021-10-27 ambulatory STLMLC STLMLC [id number] Common 00:00:00 00:00:00 [facility] 2021-09-19 2021-09-19 ambulatory STLMLC STLMLC [id number] Common 00:00:00 00:00:00 [facility] 2021-07-09 2021-07-09 ambulatory STLMLC STLMLC [id number] Common 00:00:00 00:00:00 [facility] 2021-07-08 2021-07-08 ambulatory STLMLC STLMLC [id number] Common 00:00:00 00:00:00 [facility] 2021-07-08 2021-07-08 ambulatory STLMLC STLMLC [id number] Common 00:00:00 00:00:00 [facility] 2021-07-08 2021-07-08 ambulatory STLMLC STLMLC [id number] Common 00:00:00 00:00:00 [facility] 2021-07-08 2021-07-08 ambulatory STLMLC STLMLC [id number] Common 00:00:00 00:00:00 [facility] 2021-07-08 2021-07-08 ambulatory STLMLC STLMLC [id number] Common 00:00:00 00:00:00 [facility] 2021-07-08 2021-07-08 ambulatory STLMLC STLMLC [id number] Common 00:00:00 00:00:00 [facility] 2021-07-06 2021-07-06 ambulatory STLMLC STLMLC [id number] Common 00:00:00 00:00:00 [facility] 2021-06-01 2021-06-01 ambulatory STLMLC STLMLC [id number] Common 00:00:00 00:00:00 [facility] 2021-04-21 2021-04-21 ambulatory STLMLC STLMLC [id number] Common 00:00:00 00:00:00 [facility] 2021-01-25 2021-01-25 Outpatient STLMLC STLMLC [id number] Common 00:00:00 00:00:00 [facility] 2020-12-21 2020-12-21 Outpatient STLMLC STLMLC [id number] Common 00:00:00 00:00:00 [facility] 2020-12-17 2020-12-17 Outpatient STLMLC STLMLC [id number] Common 00:00:00 00:00:00 [facility] 2020-09-15 2020-09-15 Outpatient STLMLC STLMLC [id number] Common 00:00:00 00:00:00 [facility] 2020-08-30 2020-08-30 Outpatient STLMLC STLMLC [id number] Common 00:00:00 00:00:00 [facility] 2020-08-27 2020-08-27 Outpatient STLMLC STLMLC [id number] Common 00:00:00 00:00:00 [facility] 2020-08-26 2020-08-26 Outpatient STLMLC STLMLC [id number] Common 00:00:00 00:00:00 [facility] 2020-06-01 2020-06-01 Outpatient STLMLC STLMLC [id number] Common 00:00:00 00:00:00 [facility] 2019-12-16 2019-12-16 [facility] [id number] Common 09:18:00 09:18:00 t [facility] [address] [facility] 2019-11-27 2019-11-27 [facility] [id number] Common 13:00:00 13:00:[address] [facility] 2019-10-29 2019-10-29 [facility] [id number] Common 09:20:00 09:20:[address] [facility] 2019-08-26 2019-08-26 [facility] [id number] Common 10:00:00 10:00:[address] [facility] 2019-08-14 2019-08-14 [facility] [id number] Common 10:40:00 10:40:[address] [facility] 2019-07-09 2019-07-09 [facility] [id number] Common 14:20:00 14:20:[address] [facility] 2019-06-27 2019-06-27 [facility] [id number] Common 10:20:00 10:20:[address] [facility] Results This patient has no known results.
[2022-03-13] MEDS ORDERED: METHYLPREDNISOLONE 125 MG INJ ONE (16:43)
[2022-03-13 17:03] LABS: Absolute Lymphocytes (CBC) 1.3 K/uL (0.7-4.9); Hematocrit 27.8 % (36.0-45.0); Lymphocytes % 21.2 % (15.3-44.8); MCV 91.3 fL (80-100); MPV 10.8 fL (7.6-11.3); RBC Red Blood Cell Count 3.05 M/uL (3.86-4.86)
[2022-03-13 17:20] LABS: AST/SGOT 8 U/L (15-37); Albumin 3.1 g/dL (3.4-5.0); Alkaline Phosphatase 72 U/L (45-117); BUN Blood Urea Nitrogen 18 mg/dL (7-18); Bicarbonate 33 mmol/L (21-32); Bilirubin Total 0.2 mg/dL (0.2-1.0); Glomerular Filtration Rate 49 ml/min (=/>90); Glucose Level 103 mg/dL (74-106); Magnesium 2.2 mg/dL (1.8-2.4); NT PRO-BNP 273 pg/mL (<125); Potassium 3.9 mmol/L (3.5-5.1); Protein, Total 7.3 g/dL (6.4-8.2); Sodium Level 140 mmol/L (136-145); Troponin High Sensitivity 7.1 pg/mL (<58.9)
[2022-03-13 17:21] LABS: ALT/SGPT < 10 U/L (12-78)
--- NOTE | 2022-03-13 17:44 | RAD REPORT ---
EXAM DESCRIPTION: Yissel Single View03/13/2022 5:19 pm CLINICAL HISTORY: Shortness of breath COMPARISON: 2020 FINDINGS: Lungs are moderately hyperaerated. The lungs appear clear of acute infiltrate. The heart is normal size IMPRESSION: COPD without visualization acute abnormality
--- NOTE | 2022-03-13 18:10 | ER ---
Nurse's Notes [facility] Name: Louise Raines Age: 71 yrs Sex: Female : 1950 Arrival Date: 03/13/2022 Time: 15:12 Bed 8 Private MD: RAHEEM SANTOS Diagnosis: COPD/ Chronic obstructive pulmonary disease with (acute) exacerbation;Pleurisy Presentation: 03/13 15:31 Chief complaint: Patient states: Hx of COPD, uses home o2 at 4 lpm, states that SOB has ph become increasingly worse over the last 2 weeks and she has had to increase o2 to 6 lpm, also reports productive cough w/ clear mucus, intermittent low grade fever. Coronavirus screen: Vaccine status: Patient reports being unvaccinated. Ebola Screen: No symptoms or risks identified at this time. Initial Sepsis Screen: Does the patient meet any 2 criteria? No. Patient's initial sepsis screen is negative. Does the patient have a suspected source of infection? Yes: Productive cough/pneumonia. Risk Assessment: Do you want to hurt yourself or someone else? Patient reports no desire to harm self or others. Onset of symptoms was March 13, 2022. 15:31 Method Of Arrival: Ambulatory ph 15:31 Acuity: JAIME 3 ph Historical: - Allergies: 15:31 Adhesives; ph 15:31 ambien; ph 15:31 Iodine; ph - PMHx: 15:31 COPD; Hypertension; Hypothyroidism; ulcerative colitis; ph - Immunization history:: Adult Immunizations unknown. - Social history:: Smoking status: Patient reports the use of cigarette tobacco products, denies chronic smoking, but will smoke occasionally. Screenin:25 Abuse screen: Denies threats or abuse. Nutritional screening: No deficits noted. jb4 Tuberculosis screening: No symptoms or risk factors identified. Fall Risk None identified. Assessment: 16:15 General: Appears in no apparent distress. uncomfortable. kr3 17:10 Reassessment: No changes from previously documented assessment. Patient and/or family kr3 updated on plan of care and expected duration. Pain level reassessed. 17:11 Pain: Complains of pain in back. kr3 18:28 Reassessment: Patient and/or family updated on plan of care and expected duration. Pain kr3 level reassessed. Patient states symptoms have improved. Cardiovascular:. Respiratory: Airway is patent Respiratory effort is even, unlabored. 19:25 Reassessment: Patient appears in no apparent distress at this time. Patient and/or jb4 family updated on plan of care and expected duration. Pain level reassessed. Patient is alert, oriented x 3, equal unlabored respirations, skin warm/dry/pink. Pt and family verbalized understanding of d/c and follow up instructions. Denies questions or concerns. Assisted to vehicle via wheel chair. Vital Signs: 15:31 BP 141 / 87; Pulse 96; Resp 20; Temp 98.4; Pulse Ox 97% on 6 lpm NC; Weight 44.45 kg; ph Height 5 ft. 1 in. (154.94 cm); 17:12 BP 139 / 65; Pulse 76; Resp 20; Pulse Ox 98% on 4 lpm NC; kr3 18:15 BP 152 / 68; Pulse 80; Resp 20; Pulse Ox 100% on 4 lpm NC; kr3 15:31 Body Mass Index 18.52 (44.45 kg, 154.94 cm) ph ED Course: 15:12 Patient arrived in ED. mr 15:13 RAHEEM SANTOS is Private Physician. mr 15:16 Marcia De Leon MD is Attending Physician. sd2 15:31 Arm band placed on. ph 15:35 Triage completed. ph 16:27 Inserted saline lock: 22 gauge in right antecubital area, using aseptic technique. ap3 Blood collected. 16:31 Nica Tomas, ADWOA is Primary Nurse. kr3 16:52 Influenza Screen (a \\T\\ B) Sent. kr3 16:52 SARS-COV-2 RT PCR (Document "Date of Onset" if Symptomatic) Sent. kr3 17:20 XRAY Chest (1 view) In Process Unspecified. EDMS 18:09 RAHEEM SANTOS is Referral Physician. sd2 19:25 Patient has correct armband on for positive identification. Bed in low position. Call jb4 light in reach. Side rails up X 1. 19:25 No provider procedures requiring assistance completed. IV discontinued, intact, jb4 bleeding controlled, No redness/swelling at site. Pressure dressing applied. Administered Medications: 16:47 Drug: SOLU-Medrol (methylPrednisoLONE) 125 mg Route: IVP; Site: right antecubital; kr3 18:26 Follow up: Response: No adverse reaction kr3 18:25 Drug: Ketorolac 15 mg Route: IVP; Site: right antecubital; kr3 Medication: 19:25 VIS not applicable for this client. jb4 Outcome: 18:10 Discharge ordered by . sd2 19:25 Discharged to home via wheelchair, with family. jb4 19:25 Condition: stable 19:25 Discharge instructions given to patient, family, Instructed on discharge instructions, follow up and referral plans. no drinking with medication, no driving heavy equipment, medication usage, Demonstrated understanding of instructions, follow-up care, medications, Prescriptions given X 3. 19:26 Patient left the ED. jb4 Signatures: Dispatcher [employer] EDMS Tamiko SimentalRowan RN RN Yared Israel RN RN jb4 Connie Tamayo RN RN Marcia Adkins MD MD sd2 Nica Tomas RN RN kr3 Corrections: (The following items were deleted from the chart) 17:12 16:15 Pain: Complains of pain in back kr3 kr3 18:28 17:12 BP 139 / 65; Pulse 76bpm; Resp 20bpm; Pulse Ox 98% Nasal Cannula; kr3 kr3
--- NOTE | 2022-03-13 18:10 | EDPHYS ---
Physician Documentation [facility] Name: Louise Raines Age: 71 yrs Sex: Female : 1950 Arrival Date: 03/13/2022 Time: 15:12 Bed 8 Private MD: RAHEEM SANTOS ED Physician Marcia De Leon HPI: 03/13 16:19 This 71 yrs old Female presents to ER via Ambulatory with complaints of Shortness Of sd2 Breath, Back Pain. 16:19 71-year-old female with a history of COPD normally on 4 L nasal cannula presents with sd2 chief complaint of shortness of breath. She reports she initially started with URI symptoms after her grandchildren came over approximately 2 weeks ago and was placed on antibiotics and steroids. She reports she initially had a productive cough but it is now only occasionally productive of clear sputum. She denies any CP but complains of mid-back pain mostly with coughing that patient reports feels like pleurisy. Has been using her albuterol inhaler and Advair with some relief. Last use of albuterol was at 1:30PM. Pt reports inability to use nebulizers because it makes her heart race. Pt reports increasing her home oxygen to 6L at home to help with her symptoms.. Historical: - Allergies: 15:31 Adhesives; ph 15:31 ambien; ph 15:31 Iodine; ph - PMHx: 15:31 COPD; Hypertension; Hypothyroidism; ulcerative colitis; ph - Immunization history:: Adult Immunizations unknown. - Social history:: Smoking status: Patient reports the use of cigarette tobacco products, denies chronic smoking, but will smoke occasionally. ROS: 16:19 Constitutional: Negative for fever, chills, and weight loss, Eyes: Negative for injury, sd2 pain, redness, and discharge, Cardiovascular: Negative for chest pain, palpitations, and edema, Respiratory: Positive for shortness of breath, cough, wheezing. Abdomen/GI: Negative for abdominal pain, nausea, vomiting, diarrhea. Back: Negative for injury. Positive for pain, : Negative for dysuria, urinary frequency, hesitancy, urgency and hematuria. MS/Extremity: Negative for injury and deformity, Skin: Negative for injury, rash, and discoloration, Neuro: Negative for headache, numbness and tingling. Exam: 16:19 Constitutional: This is a well developed, well nourished patient who is awake, alert, sd2 and in no acute distress. Head/Face: Normocephalic, atraumatic. Eyes: EOMI, normal conjunctiva bilaterally Chest/axilla: Normal chest wall appearance and motion. Nontender with no deformity. Cardiovascular: Regular rate and rhythm with a normal S1 and S2. No gallops, murmurs, or rubs. 2+ distal pulses. Respiratory: Lungs have equal breath sounds bilaterally, Occasional expiratory wheeze noted at bilateral bases with diminished BS. No increased work of breathing, no retractions or nasal flaring. Abdomen/GI: Soft, non-tender, with normal bowel sounds. No guarding or rebound. No evidence of tenderness throughout. Skin: Warm, dry with normal turgor. Normal color with no rashes, no lesions, and no evidence of cellulitis. MS/ Extremity: Pulses equal, no cyanosis. Neurovascular intact. Full, normal range of motion. Ambulatory without difficulty. Psych: Awake, alert, with orientation to person, place and time. Behavior, mood, and affect are within normal limits. 16:31 ECG was reviewed by the Attending Physician. NSR, rate 78, no STEMI criteria or ST-T sd2 wave changes Vital Signs: 15:31 BP 141 / 87; Pulse 96; Resp 20; Temp 98.4; Pulse Ox 97% on 6 lpm NC; Weight 44.45 kg; ph Height 5 ft. 1 in. (154.94 cm); 17:12 BP 139 / 65; Pulse 76; Resp 20; Pulse Ox 98% on 4 lpm NC; kr3 18:15 BP 152 / 68; Pulse 80; Resp 20; Pulse Ox 100% on 4 lpm NC; kr3 15:31 Body Mass Index 18.52 (44.45 kg, 154.94 cm) ph MDM: 16:19 Patient medically screened. sd2 16:19 Differential diagnosis: Differential diagnosis includes but is not limited to: ACS, sd2 DVT/PE, pneumothorax, dissection, musculoskeletal, anxiety, anemia, electrolyte abnormality, pneumonia, CHF, COPD among others. Data reviewed: vital signs, nurses notes. 18:06 Data reviewed: lab test result(s), EKG, radiologic studies. Counseling: I had a sd2 detailed discussion with the patient and/or guardian regarding: the historical points, exam findings, and any diagnostic results supporting the discharge/admit diagnosis, lab results, radiology results, the need for outpatient follow up, to return to the emergency department if symptoms worsen or persist or if there are any questions or concerns that arise at home. Medical screen evaluation completed. [facility] emergency medical condition absent. ED course: Pt feeling improved. Saturating well on her normal 4L NC with no episodes of desaturation. No significant increased WOB or tachypnea. Pt informed of results. Labs and imaging reviewed with no evidence of infectious process. CXR clear. Procal not consistent with bacterial infection. Trop neg and EKG with no ischemic changes. Suspect COPD exacerbation with possible pleurisy. Will treat with short course of anti-inflammatories and steroids. No indications for antibiotics at this time. COVID and flu negative. Pt with albuterol inhaler at home. Will provide small amount of tramadol for pain unrelieved with Naproxen at home. pt comfortable with plan and verbalizes understanding of discharge plan and strict return precautions.. 03/13 16:07 Order name: CBC with Diff; Complete Time: 17:24 sd2 03/13 16:07 Order name: CMP; Complete Time: 17:24 sd2 03/13 16:07 Order name: Magnesium; Complete Time: 17:24 sd2 03/13 16:07 Order name: Troponin High Sensitivity; Complete Time: 17:24 sd2 03/13 16:07 Order name: BNP; Complete Time: 17:24 sd2 03/13 16:07 Order name: Procalcitonin; Complete Time: 17:55 sd2 03/13 16:07 Order name: EKG - Nurse/Tech; Complete Time: 16:31 sd2 03/13 16:07 Order name: XRAY Chest (1 view); Complete Time: 17:45 sd2 03/13 16:07 Order name: SARS-COV-2 RT PCR (Document "Date of Onset" if Symptomatic); Complete Time: sd2 17:55 03/13 16:07 Order name: Influenza Screen (a \\T\\ B); Complete Time: 17:45 sd2 Administered Medications: 16:47 Drug: SOLU-Medrol (methylPrednisoLONE) 125 mg Route: IVP; Site: right antecubital; kr3 18:26 Follow up: Response: No adverse reaction kr3 18:25 Drug: Ketorolac 15 mg Route: IVP; Site: right antecubital; kr3 Disposition Summary: 03/13/22 18:10 Discharge Ordered Location: Home sd2 Problem: an acute exacerbation sd2 Symptoms: have improved sd2 Condition: Stable sd2 Diagnosis - COPD/ Chronic obstructive pulmonary disease with (acute) exacerbation sd2 - Pleurisy sd2 Followup: sd2 - With: RAHEEM SANTOS - When: 2 - 3 days - Reason: Recheck today's complaints, Continuance of care, Re-evaluation by your physician Discharge Instructions: - Discharge Summary Sheet sd2 - Pleurisy sd2 - Chronic Obstructive Pulmonary Disease Exacerbation sd2 Forms: - Medication Reconciliation Form sd2 - Thank You Letter sd2 - Antibiotic Education sd2 - Prescription Opioid Use sd2 Prescriptions: - Naprosyn 500 mg Oral Tablet - take 1 tablet by ORAL route 2 times per day take with food; 20 tablet; Refills: sd2 0, Product Selection Permitted - Tramadol 50 mg Oral Tablet - take 1 tablet by ORAL route every 6 hours as needed; 12 tablet; Refills: 0, sd2 Product Selection Permitted - Prednisone 20 mg Oral Tablet - take 2 tablets by ORAL route once daily for 5 days; 10 tablet; Refills: 0, sd2 Product Selection Permitted Signatures: Dispatcher [employer] Rowan José RN RN Marcia De Leon MD MD sd2 Nica Tomas RN RN kr3
[2022-03-13] MEDS ORDERED: KETOROLAC 30 MG/ML INJ ONE (18:31)
[2022-03-15 00:55] VITALS: TEMP 98.4
[2022-03-15 00:59] VITALS: BP 152/68; O2SAT 100
--- NOTE | 2022-03-15 06:35 | EKG ---
Test Date: 2022-03-13 Test Time: 16:29:46 Adult Neurologist: CANDELARIA MEASUREMENT RESULTS: Intervals: Rate: 78 IL: 122 QRSD: 70 QT: 392 QTc: 446 [place]: P: 84 IL: 122 QRS: 44 T: 70 INTERPRETIVE STATEMENTS: Normal sinus rhythm Normal ECG Compared to ECG 03/01/2021 17:29:02 Sinus tachycardia no longer present Atrial abnormality no longer present Left ventricular hypertrophy no longer present Early repolarization no longer present Electronically Signed On 03-15-22 06:31:35 CDT by Bryan Chowdhury
== END 2022-03-13 19:26 | disposition home or self-care (01) ==
LOC: ER 15:08
DX: J44.1 Chronic obstructive pulmonary disease with (acute) exacerbation (principal); R09.1 Pleurisy; F17.210 Nicotine dependence, cigarettes, uncomplicated; Z20.822 Contact with and (suspected) exposure to COVID-19
CPT/HCPCS: 93005; 85025; 36415; 83735; 84484; 80053; 84145; 83880; 87804 ×2; 71045; 96375; 96374; 99284; U0003; J2930

== ENCOUNTER 2022-03-24 10:30 | Emergency (ER) | payer OTHER ==
--- OUTSIDE RECORDS SUMMARY | 2022-03-24 10:33 | XMS REPORT | Continuity of Care Document ---
:1950 Author Organization [facility] t Address [address] [place] [address] Care Team Providers Name Role Phone Kaylene Polo Attending Clinician Unavailable Problems This patient has no known problems. Allergies, Adverse Reactions, Alerts Allergy Allergy Status Severity Reaction(s) Onset Inactive Treating Comm ents Source Name Type Date Date Clinician Iodine Adverse Active rash Common Reaction [facility] Baclofen Adverse Active sever Common Reaction sleepiness Spir it [facility] Ambien Adverse Active makes crazy Comm on Reaction [facility] Medications Ordered Filled Start Stop Current Ordering Indication Dosage Frequency Signature Comments Components Source Medication Medication Date Date Medication? Clinician (SIG) Name Name oSnu Ascencio 2018-06 2020- No Kaylene 1 puff Com mon Ellipta Ellipta 07-20 [facility] 00:[facility]: 00:00 - [facility] 00 :00 [facility] Ondansetron Ondansetron 2018- Yes Kaylene 1 tablet Common HCl HCl 9-27 [facility] as needed [facility] 00:00: - [facility] 00 [facility] Aspirin Aspirin Yes Kaylene 1 tablet Comm on Adult Low Adult Low [facility] Sp[facility] it Strength Strength [facility] Seroquel Seroquel Yes Kaylene 1 tablet Co mmon [facility] Ventolin Ventolin Yes Kaylene INHALE ONE Common HFA HFA [facility] TO TWO [facility] PUFFS BY - [facility] MOUTH [facility] EVERY [facility] NEEDED FOR Center WHEEZING Metoprolol Metoprolol Yes Kaylene TAKE 1 Common Tartrate Tartrate [facility] TABLET BY S pirit MOUTH - [facility] TWICE St DAILY WITH [facility] Levothyroxi Levothyroxi Yes Kaylene 1 tablet Common ne Sodium ne Sodium [facility] on an Spi rit empty - [facility] stomach in [facility] Kaylene 1 capsule C ommon [facility] Vitamin D3 Vitamin D3 Yes Kaylene 1 capsule Common [facility] Ropinirole Ropinirole Yes Kaylene TAKE ONE Common HCl HCl [facility] TABLET BY Spirit MOUTH - [facility] THREE TIMES [facility] Amlodipine Amlodipine Yes Kaylene take one Common Besylate Besylate [facility] tablet by S pirit mouth once - [facility] daily [facility] Lopressor Lopressor Yes Kaylene 1 tablet Common [facility] with food [facility] Albuterol Albuterol Yes Kaylene 3 ml as C ommon Sulfate Sulfate [facility] needed [facility] Trazodone Trazodone Yes Kaylene 3 tabs Co mmon HCl HCl [facility] Gemfibrozil Gemfibrozil Yes Kaylene TAKE 1 Common [facility] TABLET BY Spirit MOUTH - [facility] TWICE [facility] Pantoprazol Pantoprazol Yes Kaylene 1 tablet Common e Sodium e Sodium Swift [facility] Procedures This patient has no known procedures. Encounters Start End Encounter Admission Attending Care Care Encounter Source Date/Time Date/Time Type Type Clinicians Facility Department ID 2022-03-03 [facility] [id number] Common 08:01:00 Kaylene [facility] 2021-11-03 Outpatient LUTHER Polo [facility] [id number] Common 09:35:00 Kaylene [facility] 2021-10-[address] MelaniJESSICA [facility] [id number] Common 17:04:00 Kaylene [facility] 2021-10-25 Outpatient LUTHER Polo [facility] [id number] Common 11:15:01 Kaylene [facility] 2021-07-20 Outpatient [facility], STLMLC ST[facility] [id number] Common 14:06:12 Kaylene [id number] [facility] 2021-07-20 Outpatient [facility], STLMLC STLMLC [id number] Common 12:10:57 Kaylene [id number] [facility] 2021-07-20 Outpatient [facility], STLMLC STLMLC [id number] Common 11:20:37 Kaylene 37510 [facility] 2021-07-20 Outpatient [facility], STLMLC STLMLC [id number] Common 11:08:50 Kaylene [id number] [facility] 2021-07-20 Outpatient [facility], STLMLC STLMLC [id number] Common 11:00:43 Kaylene [id number] [facility] 2021-07-20 Outpatient [facility], STLMLC STLMLC [id number] Common 10:57:27 Kaylene [id number] [facility] 2022-02-23 2022-02-23 ambulatory STLMLC ST[facility]C [id number] Common 00:00:00 00:00:00 [facility] 2022-02-23 2022-02-23 ambulatory STLMLC STL[facility]C [id number] Common 00:00:00 00:00:00 [facility] 2021-10-27 2021-10-27 ambulatory STLMLC STLMLC [id number] Common 00:00:00 00:00:00 [facility] 2021-09-19 2021-09-19 ambulatory STLMLC STLMLC [id number] Common 00:00:00 00:00:00 [facility] 2021-07-09 2021-07-09 ambulatory STLMLC STLMLC [id number] Common 00:00:00 00:00:00 [facility] 2021-07-08 2021-07-08 ambulatory STLMLC STLMLC [id number] Common 00:00:00 00:00:00 [facility] 2021-07-08 2021-07-08 ambulatory STLMLC STLMLC [id number] Common 00:00:00 00:00:00 [facility] 2021-07-08 2021-07-08 ambulatory STLMLC STLMLC [id number] Common 00:00:00 00:00:00 [facility] 2021-07-08 2021-07-08 ambulatory STLMLC STLMLC [id number] Common 00:00:00 00:00:00 [facility] 2021-07-08 2021-07-08 ambulatory STLMLC STLMLC [id number] Common 00:00:00 00:00:00 [facility] 2021-07-08 2021-07-08 ambulatory STLMLC STLMLC [id number] Common 00:00:00 00:00:00 [facility] 2021-07-06 2021-07-06 ambulatory STLMLC STLMLC [id number] Common 00:00:00 00:00:00 [facility] 2021-06-01 2021-06-01 ambulatory STLMLC STLMLC [id number] Common 00:00:00 00:00:00 [facility] 2021-04-21 2021-04-21 ambulatory STLMLC STLMLC [id number] Common 00:00:00 00:00:00 [facility] 2021-01-25 2021-01-25 Outpatient STLMLC STLMLC [id number] Common 00:00:00 00:00:00 [facility] 2020-12-21 2020-12-21 Outpatient STLMLC STLMLC [id number] Common 00:00:00 00:00:00 [facility] 2020-12-17 2020-12-17 Outpatient STLMLC STLMLC [id number] Common 00:00:00 00:00:00 [facility] 2020-09-15 2020-09-15 Outpatient STLMLC STLMLC [id number] Common 00:00:00 00:00:00 [facility] 2020-08-30 2020-08-30 Outpatient STLMLC STLMLC [id number] Common 00:00:00 00:00:00 [facility] 2020-08-27 2020-08-27 Outpatient STLMLC STLMLC [id number] Common 00:00:00 00:00:00 [facility] 2020-08-26 2020-08-26 Outpatient STLMLC STL[facility]C [id number] Common 00:00:00 00:00:00 [facility] 2020-06-01 2020-06-01 Outpatient STLMLC STLMLC [id number] Common 00:00:00 00:00:00 [facility] 2019-12-16 2019-12-16 [facility] [id number] Common 09:18:00 09:18:[address] [facility] 2019-11-27 2019-11-27 [facility] [id number] Common 13:00:00 13:00:[address] [facility] 2019-10-29 2019-10-29 [facility] [id number] Common 09:20:00 09:20:[address] [facility] 2019-08-26 2019-08-26 [facility] [id number] Common 10:00:00 10:00:[address] [facility] 2019-08-14 2019-08-14 [facility] [id number] Common 10:40:00 10:40:[address] [facility] 2019-07-09 2019-07-09 [facility] [id number] Common 14:20:00 14:20:[address] [facility] 2019-06-27 2019-06-27 [facility] [id number] Common 10:20:00 10:20:[address] [facility] Results This patient has no known results.
[2022-03-24 11:31] LABS: Absolute Lymphocytes (CBC) 1.1 K/uL (0.7-4.9); Hematocrit 30.9 % (36.0-45.0); Lymphocytes % 9.7 % (15.3-44.8); MCV 89.5 fL (80-100); MPV 8.9 fL (7.6-11.3); RBC Red Blood Cell Count 3.46 M/uL (3.86-4.86)
--- NOTE | 2022-03-24 11:50 | RAD REPORT ---
EXAM DESCRIPTION: Yissel Single View03/24/2022 11:34 am CLINICAL HISTORY: Cough COMPARISON: March 13, 2022 FINDINGS: Lungs are hyperaerated. Mild chronic changes within the lung bases. The lungs appear clear of acute infiltrate. The heart is normal size IMPRESSION: COPD without visualization acute abnormality
[2022-03-24 11:51] LABS: Potassium 4.3 mmol/L (3.5-5.1); Troponin High Sensitivity 5.9 pg/mL (<58.9)
[2022-03-24] MEDS ORDERED: MORPHINE 2 MG/ML SYR ONE ×2 (12:17→13:19)
[2022-03-24] MEDS ORDERED: METHYLPREDNISOLONE 125 MG INJ ONE (12:17)
[2022-03-24] MEDS ORDERED: ONDANSETRON 4 MG/2 ML VIAL ONE (12:18)
[2022-03-24] MEDS ORDERED: KETOROLAC 30 MG/ML INJ ONE (13:19)
[2022-03-24] MEDS ORDERED: PROMETHAZINE INJ 25 MG/ML AMP ONE (13:19)
[2022-03-24] MEDS ORDERED: NA CHLORIDE 0.9% 250 ML ONE (14:29)
[2022-03-24] MEDS ORDERED: AZITHROMYCIN 500 MG INJ IVPB ONE (14:29)
[2022-03-24] MEDS ORDERED: DIPHENHYDRAMINE 50 MG/ML VIAL ONE (15:28)
--- NOTE | 2022-03-24 15:56 | RAD REPORT ---
EXAM DESCRIPTION: CT - Chest For Pe Angio - 03/24/2022 3:43 pm CLINICAL HISTORY: sob ongoing for weeks hypertension hx copd sputum yellow COMPARISON: Chest Abd Pelvis Wo Con dated 12/17/2020; Chest For Pe Angio dated 02/02/2017; Thorax Wo C on dated 05/12/2016; Chest Single View dated 03/24/2022 TECHNIQUE: Dynamically enhanced axial 3 mm thick images of the chest were obtained during administra tion of <100> mL Isovue 370 IV contrast. Coronal and oblique reconstruction images were generated and reviewed. Exam utilizes a protocol for optimal evaluation of pulmonary arterial tree. Maximum intensity projections 3D imaging was utilized All CT scans are performed using dose optimization technique as appropriate and may include automated exposure control or mA/KV adjustment according to patient size. FINDINGS: Chest Wall: No suspicious thyroid nodules or pathologic lymphadenopathy. Lungs: Moderate emphysema. Scarring in the right middle lobe and lingula. Mild scarring in the right lung base as well. Pleura: No significant effusions or pneumothorax. Mediastinum/ankush: No pathologic lymphadenopathy. Small hiatal hernia. Thickened distal esophagus like ly reflecting esophagitis. Pulmonary arteries/Aorta: No filling defect identified. No aortic aneurysm. Left subclavian artery st ent. Descending thoracic aortic ectasia measuring 3.5 cm with mixed calcified and noncalcified plaque s. Plaque irregularity is present. . Heart: No significant pericardial effusion. Normal heart size. Scattered coronary artery calcificatio ns. Upper abdomen: No acute abnormality. Bones: No acute abnormality. IMPRESSION: 1. Negative for pulmonary embolism. 2. Moderate emphysema and other chronic findings but no evidence of either edema or pneumonia. 3. Descending thoracic aortic ectasia with areas of soft plaque ulceration and irregularity.
--- NOTE | 2022-03-24 16:20 | EDPHYS ---
Physician Documentation [facility] Name: Louise Raines Age: 71 yrs Sex: Female : 1950 Arrival Date: 03/24/2022 Time: 10:34 Bed 6 Private MD: ED Physician Jersey Porter HPI: 03/24 13:55 This 71 yrs old Female presents to ER via Wheelchair with complaints of jl9 Shortness Of Breath, Productive Cough. 13:55 The patient has shortness of breath during heavy activity. Onset: The symptoms/episode jl9 began/occurred 1 week(s) ago. Duration: The symptoms are chronic. The patient's shortness of breath is aggravated by light activity. Associated signs and symptoms: Pertinent negatives: chest pain, dizziness. The patient has experienced similar episodes in the past. Historical: - Allergies: 10:37 Adhesives; ss 10:37 ambien; ss 10:37 Iodine; ss - PMHx: 10:37 COPD; Hypertension; Hypothyroidism; ulcerative colitis; Continuous home O2 \\T\\ 5L; ss - Immunization history:: Client reports having NOT received the Covid vaccine. - Social history:: Smoking status: Patient reports the use of cigarette tobacco products, 4 cigarettes/ day. ROS: 13:56 Constitutional: Negative for fever, chills, and weight loss, Eyes: Negative for injury, jl9 pain, redness, and discharge, ENT: Negative for injury, pain, and discharge, Neck: Negative for injury, pain, and swelling, Cardiovascular: Negative for chest pain, palpitations, and edema. 13:56 Abdomen/GI: Negative for abdominal pain, nausea, vomiting, diarrhea, and constipation, Back: Negative for injury and pain, : Negative for injury, bleeding, discharge, and swelling, MS/Extremity: Negative for injury and deformity, Skin: Negative for injury, rash, and discoloration, Neuro: Negative for headache, weakness, numbness, tingling, and seizure, Psych: Negative for depression, anxiety, suicide ideation, homicidal ideation, and hallucinations, Allergy/Immunology: Negative for hives, rash, and allergies, Endocrine: Negative for neck swelling, polydipsia, polyuria, polyphagia, and marked weight changes, Hematologic/Lymphatic: Negative for swollen nodes, abnormal bleeding, and unusual bruising. 13:56 Respiratory: Positive for shortness of breath. Exam: 13:56 Constitutional: This is a well developed, well nourished patient who is awake, alert, jl9 and in no acute distress. Head/Face: Normocephalic, atraumatic. Eyes: Pupils equal round and reactive to light, extra-ocular motions intact. Lids and lashes normal. Conjunctiva and sclera are non-icteric and not injected. Cornea within normal limits. Periorbital areas with no swelling, redness, or edema. ENT: Mucous membranes moist. Neck: Trachea midline, no thyromegaly or masses palpated, and no cervical lymphadenopathy. Supple, full range of motion without nuchal rigidity, or vertebral point tenderness. No Meningismus. Chest/axilla: Normal chest wall appearance and motion. Nontender with no deformity. No lesions are appreciated. Cardiovascular: Regular rate and rhythm with a normal S1 and S2. No gallops, murmurs, or rubs. Normal PMI, no JVD. No pulse deficits. 13:56 Abdomen/GI: Soft, non-tender, with normal bowel sounds. No distension or tympany. No guarding or rebound. No evidence of tenderness throughout. Back: No spinal tenderness. No costovertebral tenderness. Full range of motion. Skin: Warm, dry with normal turgor. Normal color with no rashes, no lesions, and no evidence of cellulitis. MS/ Extremity: Pulses equal, no cyanosis. Neurovascular intact. Full, normal range of motion. Neuro: Awake and alert, GCS 15, oriented to person, place, time, and situation. Cranial nerves II-XII grossly intact. Motor strength 5/5 in all extremities. Sensory grossly intact. Cerebellar exam normal. Normal gait. Psych: Awake, alert, with orientation to person, place and time. Behavior, mood, and affect are within normal limits. 13:56 Respiratory: the patient does not display signs of respiratory distress, Respirations: normal, Breath sounds: rhonchi. Vital Signs: 10:34 BP 128 / 60; Pulse 95; Resp 20; Temp 98.6; Pulse Ox 92% ; Weight 44.45 kg (M); Height 5 ss ft. 1 in. (154.94 cm); Pain 7/10; 11:50 BP 129 / 81; Pulse 97; Resp 20; Pulse Ox 100% on 5 lpm NC; Pain 8/10; mb9 12:36 BP 169 / 90; Pulse 96; Resp 20; Pulse Ox 100% on 5 lpm NC; mb9 13:10 BP 174 / 80; Pulse 100; Resp 20; Pulse Ox 100% on 5 lpm NC; mb9 13:50 BP 166 / 76; Pulse 102; Resp 20; Pulse Ox 100% on 5 lpm NC; mb9 13:51 Pain 8/10; mb9 14:49 BP 151 / 57; Pulse 101; Resp 26 S; Pulse Ox 99% on 5 lpm NC; aa5 16:04 BP 146 / 63; Pulse 97; Resp 20; Pulse Ox 100% on 5 lpm NC; Pain 6/10; mb9 16:39 BP 146 / 63; Pulse 96; Resp 20; Pulse Ox 100% on 5 lpm NC; Pain 6/10; mb9 10:34 Body Mass Index 18.52 (44.45 kg, 154.94 cm) ss MDM: 10:57 Patient medically screened. jl9 11:33 Test interpretation: by ED physician or midlevel provider: ECG. jl9 13:54 Data reviewed: vital signs, nurses notes. jl9 16:16 Counseling: I had a detailed discussion with the patient and/or guardian regarding: the 9 historical points, exam findings, and any diagnostic results supporting the discharge/admit diagnosis, lab results, radiology results, the need for outpatient follow up, to return to the emergency department if symptoms worsen or persist or if there are any questions or concerns that arise at home. Response to treatment: the patient's symptoms have markedly improved after treatment, Patient reports that she feels much better and declines being admitted for observation. Patient also declines neb tx due to tachycardia. . 03/24 11:00 Order name: Basic Metabolic Panel 03/24 11:00 Order name: CBC with Diff 03/24 11:00 Order name: Troponin HS 03/24 11:00 Order name: SARS-COV-2 RT PCR (Document "Date of Onset" if Symptomatic) 03/24 11:00 Order name: Flu 03/24 11:32 Order name: CBC with Automated Diff; Complete Time: 11:39 EDMS 03/24 11:44 Order name: Influenza Screen (A ; Complete Time: 11:55 EDMS 03/24 11:51 Order name: Basic Metabolic Panel; Complete Time: 11:55 03/24 11:51 Order name: Troponin High Sensitivity; Complete Time: 11:55 NC 03/24 11:58 Order name: SARS-COV-2 RT PCR; Complete Time: 12:08 NC 03/24 13:57 Order name: D-Dimer 03/24 13:57 Order name: BNP 03/24 15:01 Order name: NT PRO-BNP; Complete Time: 15:03 NC 03/24 15:02 Order name: D-Dimer; Complete Time: 15:03 EDNC 03/24 11:00 Order name: XRAY Chest (1 view) 03/24 11:00 Order name: EKG; Complete Time: 11:00 [facility] 03/24 11:00 Order name: Cardiac monitoring; Complete Time: 11:26 03/24 11:00 Order name: EKG - Nurse/Tech; Complete Time: 11:50 [facility] 03/24 11:00 Order name: IV Saline Lock; Complete Time: 11:26 [facility] 03/24 11:51 Order name: RAD; Complete Time: 11:55 NC 03/24 15:03 Order name: CT Chest For PE Angio 03/24 15:57 Order name: CT; Complete Time: 16:11 [facility] 03/24 11:00 Order name: Labs collected and sent; Complete Time: 11:26 03/24 11:00 Order name: O2 Per Protocol; Complete Time: 11:26 [facility] 03/24 11:00 Order name: O2 Sat Monitoring; Complete Time: 11: [facility] Administered Medications: 12:25 Drug: morphine 2 mg Route: IVP; Infused Over: 4 mins; Site: right antecubital; mb9 13:10 Follow up: Response: Pain is unchanged, physician notified aa5 12:25 Drug: Ondansetron 4 mg Route: IVP; Site: right antecubital; mb9 13:10 Follow up: Response: Nausea unchanged aa5 12:25 Drug: SOLU-Medrol (methylPrednisoLONE) 125 mg Route: IVP; Site: right antecubital; mb9 13:10 Follow up: Response: No adverse reaction aa5 13:40 Drug: Ketorolac 15 mg Route: IVP; Site: right antecubital; mb9 14:00 Follow up: Response: No adverse reaction; Pain is decreased aa5 13:40 Drug: morphine 2 mg Route: IVP; Infused Over: 4 mins; Site: right antecubital; mb9 14:00 Follow up: Response: Pain is decreased aa5 13:48 Drug: Phenergan (promethazine) 12.5 mg Route: IVP; Site: right antecubital; mb9 14:00 Follow up: Response: Nausea is decreased aa5 14:46 Drug: AZITHromycin 500 mg Route: IVPB; Infused Over: 1 hrs; Site: right antecubital; aa5 16:00 Follow up: Response: No adverse reaction; IV Status: Completed infusion; Infusion was aa5 paused for CT scan previously 15:35 Drug: diphenhydrAMINE 25 mg Route: IVP; Site: right antecubital; aa5 15:45 Follow up: Response: No adverse reaction aa5 Disposition: 19:02 Co-signature as Attending Physician, Jersey Porter MD I agree with the assessment and kdr plan of care. Disposition Summary: 03/24/22 16:19 Discharge Ordered Location: Home jl9 Condition: Stable jl9 Diagnosis - COPD/ Chronic obstructive pulmonary disease, unspecified jl9 Followup: jl9 - With: Private Physician - When: 1 - 2 days - Reason: Recheck today's complaints, Continuance of care, Re-evaluation by your physician Discharge Instructions: - Discharge Summary Sheet jl9 - Chronic Obstructive Pulmonary Disease jl9 Forms: - Medication Reconciliation Form jl9 - Thank You Letter jl9 - Antibiotic Education jl9 - Prescription Opioid Use jl9 Prescriptions: - Prednisone 20 mg Oral Tablet - take 2 tablets by ORAL route once daily for 5 days; 10 tablet; Refills: 0, jl9 Product Selection Permitted Signatures: Dispatcher [employer] Jersey Thrasher MD MD [facility] Loretta Melton RN RN aa5 Ashley Crocker RN RN ss Linares, John jl9 Tamiko Galindo RN RN mb9
--- NOTE | 2022-03-24 16:20 | ER ---
Nurse's Notes [facility] Name: Louise Raines Age: 71 yrs Sex: Female : 1950 Arrival Date: 03/24/2022 Time: 10:34 Bed 6 Private MD: Diagnosis: COPD/ Chronic obstructive pulmonary disease, unspecified Presentation: 03/24 10:34 Chief complaint: Patient states: shortness of breath that has been ongoing for weeks. ss Pt was seen in the ER and told that the lining of her lung was inflamed and sent home with antiinflammatory and pain medications. Pt states that the color of her sputum has changed to yellow. Coronavirus screen: Client denies travel out of the [place] in the last 14 days. Client presents with at least one sign or symptom that may indicate coronavirus-19. Ebola Screen: Patient denies exposure to infectious person. Patient denies travel to an Ebola-affected area in the 21 days before illness onset. Initial Sepsis Screen: Does the patient have a suspected source of infection? Yes:. Onset of symptoms is unknown. 10:34 Method Of Arrival: Wheelchair 10:34 Risk Assessment: Do you want to hurt yourself or someone else? Patient reports no ss desire to harm self or others. 10:34 Acuity: JAIME 2 ss 17:13 Initial Sepsis Screen: Does the patient meet any 2 criteria? No. Patient's initial mb9 sepsis screen is negative. Triage Assessment: 11:30 General: Appears comfortable. General: Appears. Respiratory: Reports. Respiratory: the mb9 patient has moderate shortness of breath. Historical: - Allergies: 10:37 Adhesives; ss 10:37 ambien; ss 10:37 Iodine; ss - PMHx: 10:37 COPD; Hypertension; Hypothyroidism; ulcerative colitis; Continuous home O2 \\T\\ 5L; ss - Immunization history:: Client reports having NOT received the Covid vaccine. - Social history:: Smoking status: Patient reports the use of cigarette tobacco products, 4 cigarettes/ day. Screenin:12 Abuse screen: Denies threats or abuse. Nutritional screening: No deficits noted. mb9 Tuberculosis screening: No symptoms or risk factors identified. Fall Risk None identified. Assessment: 11:30 General: Appears uncomfortable, Behavior is calm, cooperative, appropriate for age. mb9 Pain: Complains of pain in head, posterior chest and back Pain currently is 8 out of 10 on a pain scale. Quality of pain is described as sharp, shooting, Pain began gradually, Is intermittent. 11:30 Neuro: Level of Consciousness is awake, alert, obeys commands, Oriented to person, mb9 place, time, situation, Appropriate for age [employer] Healer are equal bilaterally. Cardiovascular: Heart tones S1 S2 present Capillary refill < 3 seconds Rhythm is regular. Respiratory: Respiratory effort is labored, Sputum is Pt states she is coughing up yellow/green sputum. Breath sounds with wheezes in right upper lobe, left upper lobe, right middle lobe, left lower lobe, right lower lobe, left posterior upper lobe, right posterior upper lobe, left posterior lower lobe, right posterior middle lobe and right posterior lower lobe. Respiratory: Pt is on 5 L/min via nasal cannula. GI: No signs and/or symptoms were reported involving the gastrointestinal system. : No signs and/or symptoms were reported regarding the genitourinary system. EENT:. Derm: Skin is pink, warm \\T\\ dry. Derm: Skin is fragile, is thin, Skin is dry, Skin is pale, Skin temperature is cool. Musculoskeletal: Range of motion: intact in all extremities. 12:35 Neuro: Level of Consciousness is awake, alert, obeys commands, Oriented to person, mb9 place, time, situation, Appropriate for age Faith Healer are equal bilaterally. Cardiovascular: Heart tones S1 S2 present Rhythm is regular. Respiratory: Breath sounds with wheezes in right upper lobe, left upper lobe, right middle lobe, left lower lobe, right lower lobe, left posterior upper lobe, right posterior upper lobe, left posterior lower lobe, right posterior middle lobe and right posterior lower lobe. Derm: Skin is fragile, is thin, Skin is dry, Skin is pale, Skin temperature is warm. 13:49 Neuro: Level of Consciousness is awake, alert, obeys commands, Oriented to person, mb9 place, time, situation, Appropriate for age Faith Healer are equal bilaterally. Cardiovascular: Heart tones S1 S2 present Rhythm is regular. Respiratory: Breath sounds with wheezes bilaterally. in right posterior lower lobe and right posterior middle lobe and left posterior lower lobe and right posterior upper lobe and left posterior upper lobe and right lower lobe and left lower lobe and right middle lobe and left upper lobe and right upper lobe. Derm: Skin is fragile, is thin, Skin is dry, Skin is pink, Skin temperature is warm. 14:47 Neuro: Level of Consciousness is awake, alert, obeys commands, Oriented to person, aa5 place, time, situation. Respiratory: Airway is patent Respiratory effort is labored, Respiratory pattern is tachypnea. Derm: Skin is pink, warm \\T\\ dry. 14:47 Reassessment: Pt assisted with bedside commode, pt voided without difficulty. Pt aa5 assisted back into bed, pt currently resting in bed. . 15:10 Reassessment: Provider at bedside . aa5 15:15 Reassessment: Pt to CT via stretcher . aa5 15:57 Reassessment: Patient is alert, oriented x 3, equal unlabored respirations, skin aa5 warm/dry/pink. awaiting CT scan results. 16:40 Neuro: Level of Consciousness is awake, alert, obeys commands, Oriented to person, mb9 place, time, situation, Appropriate for age. Respiratory: Airway is patent Respiratory effort is labored, Breath sounds with wheezes bilaterally. Derm: Skin is Skin is pink, warm \\T\\ dry. Vital Signs: 10:34 BP 128 / 60; Pulse 95; Resp 20; Temp 98.6; Pulse Ox 92% ; Weight 44.45 kg (M); Height 5 ss ft. 1 in. (154.94 cm); Pain 7/10; 11:50 BP 129 / 81; Pulse 97; Resp 20; Pulse Ox 100% on 5 lpm NC; Pain 8/10; mb9 12:36 BP 169 / 90; Pulse 96; Resp 20; Pulse Ox 100% on 5 lpm NC; mb9 13:10 BP 174 / 80; Pulse 100; Resp 20; Pulse Ox 100% on 5 lpm NC; mb9 13:50 BP 166 / 76; Pulse 102; Resp 20; Pulse Ox 100% on 5 lpm NC; mb9 13:51 Pain 8/10; mb9 14:49 BP 151 / 57; Pulse 101; Resp 26 S; Pulse Ox 99% on 5 lpm NC; aa5 16:04 BP 146 / 63; Pulse 97; Resp 20; Pulse Ox 100% on 5 lpm NC; Pain 6/10; mb9 16:39 BP 146 / 63; Pulse 96; Resp 20; Pulse Ox 100% on 5 lpm NC; Pain 6/10; mb9 10:34 Body Mass Index 18.52 (44.45 kg, 154.94 cm) ED Course: 10:34 Patient arrived in ED. ss 10:37 Arm band placed on left wrist. ss 10:38 Triage completed. ss 10:57 Neri Wilburn is PHCP. jl9 10:57 Jersey Porter MD is Attending Physician. jl9 11:11 Tamiko Galindo, ADWOA is Primary Nurse. mb9 11:25 Flu Sent. mb9 11:25 SARS-COV-2 RT PCR (Document "Date of Onset" if Symptomatic) Sent. mb9 11:26 Placed in gown. Bed in low position. Call light in reach. Side rails up X 1. mb9 11:26 Basic Metabolic Panel Sent. mb9 11:26 CBC with Diff Sent. mb9 11:26 Troponin HS Sent. mb9 11:26 Inserted saline lock: 20 gauge in right antecubital area, using aseptic technique. mb9 Blood collected. 11:30 No provider procedures requiring assistance completed. mb9 11:30 IV discontinued, intact, bleeding controlled, No redness/swelling at site. Pressure mb9 dressing applied. 11:50 EKG done, by ED staff, reviewed by Neri Wilburn. mb9 14:15 BNP Sent. mb9 14:15 D-Dimer Sent. mb9 Administered Medications: 12:25 Drug: morphine 2 mg Route: IVP; Infused Over: 4 mins; Site: right antecubital; mb9 13:10 Follow up: Response: Pain is unchanged, physician notified aa5 12:25 Drug: Ondansetron 4 mg Route: IVP; Site: right antecubital; mb9 13:10 Follow up: Response: Nausea unchanged aa5 12:25 Drug: SOLU-Medrol (methylPrednisoLONE) 125 mg Route: IVP; Site: right antecubital; mb9 13:10 Follow up: Response: No adverse reaction aa5 13:40 Drug: Ketorolac 15 mg Route: IVP; Site: right antecubital; mb9 14:00 Follow up: Response: No adverse reaction; Pain is decreased aa5 13:40 Drug: morphine 2 mg Route: IVP; Infused Over: 4 mins; Site: right antecubital; mb9 14:00 Follow up: Response: Pain is decreased aa5 13:48 Drug: Phenergan (promethazine) 12.5 mg Route: IVP; Site: right antecubital; mb9 14:00 Follow up: Response: Nausea is decreased aa5 14:46 Drug: AZITHromycin 500 mg Route: IVPB; Infused Over: 1 hrs; Site: right antecubital; aa5 16:00 Follow up: Response: No adverse reaction; IV Status: Completed infusion; Infusion was aa5 paused for CT scan previously 15:35 Drug: diphenhydrAMINE 25 mg Route: IVP; Site: right antecubital; aa5 15:45 Follow up: Response: No adverse reaction aa5 Medication: 12:20 VIS not applicable for this client. mb9 Intake: Outcome: 16:19 Discharge ordered by MD. oates 17:13 Discharged to home mb9 17:13 Discharged to home via wheelchair. 17:13 Condition: good 17:13 Discharge instructions given to patient, Instructed on discharge instructions, Demonstrated understanding of instructions, follow-up care, medications, Prescriptions given X 1. 17:15 Patient left the ED. mb9 Signatures: Loretta Melton RN RN aa5 Ashley Crocker RN RN Neri Motta9 Tamiko Galindo RN RN mb9 Corrections: (The following items were deleted from the chart) 10:38 10:34 44.45 kg Measured; Height 5 ft. 1 in.; BMI: 18.5; Pain 7/10; [facility]
[2022-03-25 06:33] VITALS: TEMP 98.6
[2022-03-25 06:51] VITALS: BP 146/63; O2SAT 100
--- NOTE | 2022-03-26 07:47 | EKG ---
Test Date: 2022-03-24 Test Time: 11:33:25 [employer] Administrator: SEGUNDO MEASUREMENT RESULTS: Intervals: Rate: 94 IN: 122 QRSD: 64 QT: 378 QTc: 472 [place]: P: 78 IN: 122 QRS: 55 T: 65 INTERPRETIVE STATEMENTS: Normal sinus rhythm Biatrial enlargement Septal infarct, age undetermined Abnormal ECG Compared to ECG 03/13/2022 16:29:46 Atrial abnormality now present Myocardial infarct finding now present Electronically Signed On 03-26-22 07:44:25 CDT by Bryan Chowdhury
== END 2022-03-24 17:15 | disposition home or self-care (01) ==
LOC: ER 10:30
DX: J44.1 Chronic obstructive pulmonary disease with (acute) exacerbation (principal); F17.210 Nicotine dependence, cigarettes, uncomplicated; Z20.822 Contact with and (suspected) exposure to COVID-19
CPT/HCPCS: 96365; 93005; 85025; 80048; 36415; 85379; 84484; 83880; 87804 ×2; 71275; 71045; 96375; 99284; U0003; Q9967; J2550; J1200; J0456; J2270 ×2; J7050; J2930; J2405

== ENCOUNTER 2022-05-30 18:42 | Inpatient (IN) | payer OTHER ==
--- OUTSIDE RECORDS SUMMARY | 2022-05-30 18:45 | XMS REPORT | Continuity of Care Document ---
:1950 Author Organization [facility] t Address [address] [place] [address] Care Team Providers Name Role Phone Kaylene Polo Attending Clinician Unavailable Payers Payer Name Policy Type Policy Number Effective Date Expiration Date S ource MEDICARE MB [id number] 2013 [facility] NOVITAS 00:00:00 - [facility] Problems Condition Condition Condition Status Onset Resolution Last Treating Co mments Source Name Details Category Date Date Treatment Clinician Date [id number] Sciatica, Problem Comm on left side [facility] [id number] Coronary Problem Comm on artery [facility] disease - [facility] involving [facility] coronary Medical artery of [place] mohegan heart without angina pectoris [id number] Frequency Problem Com mon of Spirit urination [facility] [id number] Gastroesop Problem Co mmon hageal Spirit reflux - [facility] disease [facility] esophagiti Medica l [facility] [id number] Bronchitis Problem Com mon [facility] Age-relate Age-relate Problem C ommon d d Spirit osteoporos osteoporos - [facility]I is is without [facility] pathologic Medica al [place] fracture Tobacco Nicotine Problem Common user addiction [facility] 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 [facility] History of Personal Problem Com mon polyp of history of Spir colon colonic [facility] polyps [facility] Acute low Acute low Problem Com mon back pain back pain Spir it [facility] [id number] Hospital Problem Comm on discharge Spirit follow-up [facility] Peripheral Peripheral Problem C ommon vascular vascular [facility] disease disease [facility] Hypothyroi Hypothyroi Problem C ommon dism dism [facility] Screening Screening Problem Com mon for breast for breast Sp blu cancer cancer [facility] Depressive Depressive Problem C ommon disorder disorder [facility] [id number] Nausea Problem Common [facility] Benign Benign Problem Common hypertensi hypertensi Sp blu on on - [facility] [id number] Body mass Problem Com mon index Spirit (BMI) less - CHI than 16.5 [facility] COPD - COPD Problem Common Chronic (chronic Spirit obstructiv obstructiv - [facility] e e pulmonary pulmonary [place] s disease disease) Medical Center [id number] Pneumonia Problem Com mon due to Spirit infectious - [facility] organism, unspecifie [facility] d Medical laterality Center , unspecifie d part of lung 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 accident accident - [facility] [id number] Wheezing Problem Commo n [facility] Restless Restless Problem Commo n legs legs Spirit syndrome syndrome - [facility] [id number] Cough Problem Common [facility] [id number] Chronic Problem Commo n obstructiv Spirit e - [facility] pulmonary [facility] with acute Medica l exacerbati Center on Iron Other iron Problem Commo n deficiency deficiency Sp blu anemia anemia [facility] [id number] Chronic Problem Commo n pain [facility] syndrome [facility] [id number] Chronic Problem Commo n obstructiv [facility] e [facility] pulmonary [facility] with acute Medica l lower Center respirator y infection Hypertrigl Hypertrigl Problem C ommon yceridemia yceridemia Sp blu [facility] [id number] Epigastric Problem Com mon pain [facility] Coronary CAD Problem Common artery (coronary [facility] disease artery [facility]) [facility] Allergies, Adverse Reactions, Alerts Allergy Allergy Status Severity Reaction(s) Onset Inactive Treating Comm ents Source Name Type Date Date Clinician baclofen baclofen Active sever Common sleepiness [facility] 463 Drug Active rash Common allergy [facility] zolpidem zolpidem Active makes crazy C ommon [facility] codeine codeine Active itching [facility] 0 Drug Active rash, Common allergy blisters [facility] Social History Social Habit Start Date Stop Date Quantity Comments Source History of Tobacco Use Co mmon [facility] Sex Assigned At Com [facility] Smoking Status Start Date Stop Date Source Never Smoker [facility] Medications Ordered Filled Start Stop Current Ordering Indication Dosage Frequency Signature Comments Components Source Medication Medication Date Date Medication? Clinician (SIG) Name Name predniSONE predniSONE 2021- No 1{table QD predniSONE 10 MG 10 MG 02-23 t} 10 MG 00:00: 00:00 00 :00 predniSONE predniSONE 2021-2021- No 1{table QD predniSONE 10 MG 10 MG 02-23 t} 10 MG 00:00: 00:00 00 :00 predniSONE predniSONE 2021-0 2021- No 1{table QD predniSONE 10 MG 10 MG 02-23 t} 10 MG 00:00: 00:00 00 :00 predniSONE predniSONE 2021-0 202- No 1{table QD predniSONE 10 MG 10 MG 02-23 t} 10 MG 00:00: 00:00 00 :00 Doxycycline Doxycycline 2022-0 2- No 1{capsu QD Doxycyclin Hyclate 100 Hyclate 100 02-23 le} e Hyclate MG MG 00:00: 00:00 100 MG 00 :00 Doxycycline Doxycycline 2021-0 2021- No 1{capsu QD Doxycyclin Hyclate 100 Hyclate 100 02-23 le} e Hyclate MG MG 00:00: 00:00 100 MG 00 :00 predniSONE predniSONE 2020-2021- No 1{table QD predniSONE 10 MG 10 MG 08-02 t} 10 MG 00:00: 00:00 00 :00 predniSONE predniSONE 2020-2021- No 1{table QD predniSONE 10 MG 10 MG 08-02 t} 10 MG 00:00: 00:00 00 :00 predniSONE predniSONE 2020-2- No 1{table QD predniSONE 10 MG 10 MG 08-02 t} 10 MG 00:00: 00:00 00 :00 predniSONE predniSONE 2020-2- No 1{table QD predniSONE 10 MG 10 MG 08-02 t} 10 MG 00:00: 00:00 00 :00 predniSONE predniSONE 2020-2- No 1{table QD predniSONE 10 MG 10 MG 08-02 t} 10 MG 00:00: 00:00 00 :00 predniSONE predniSONE 2020- 2022- No 1{table QD predniSONE 10 MG 10 MG 08-02 t} 10 MG 00:00: 00:00 00 :00 predniSONE predniSONE 2020-2- No 1{table QD predniSONE 10 MG 10 MG 08-02 t} 10 MG 00:00: 00:00 00 :00 predniSONE predniSONE 2020-2- No 1{table QD predniSONE 10 MG 10 MG 08-02 t} 10 MG 00:00: 00:00 00 :00 predniSONE predniSONE 2020-2021- No 1{table QD predniSONE 10 MG 10 MG 08-02 t} 10 MG 00:00: 00:00 00 :00 Trelegy Trelegy 2018- 2020- No Kaylene 1 puff Com mon Ellipta Ellipta 07-20 [place] [facility] 00:00: 00:00 - [facility] 00 :00 [facility] Ondansetron Ondansetron 2019-0 Yes Kaylene 1 tablet Common HCl HCl 9-27 [place] as needed Spirit 00:00: - [facility]I 00 [facility] Aspirin Aspirin Yes Kaylene 1 tablet Comm on Adult Low Adult Low [place] Spir it Strength Strength [facility] Seroquel Seroquel Yes Kaylene 1 tablet Co mmon [place] [facility] Ventolin Ventolin Yes Kaylene INHALE ONE Common HFA HFA [place] TO TWO Spirit PUFFS BY - CHI MOUTH [facility] EVERY [facility] NEEDED FOR Center WHEEZING Metoprolol Metoprolol Yes Kaylene TAKE 1 Common Tartrate Tartrate [place] TABLET BY S pirit MOUTH - CHI TWICE St DAILY [facility] Levothyroxi Levothyroxi Yes Kaylene 1 tablet Common ne Sodium ne Sodium [place] on an Spi rit empty - [facility]I stomach in [facility] Yes Kaylene 1 capsule C ommon [place] [facility] Vitamin D3 Vitamin D3 Yes Kaylene 1 capsule Common [place] [facility] Ropinirole Ropinirole Yes Kaylene TAKE ONE Common HCl HCl [place] TABLET BY [facility] MOUTH - CHI THREE TIMES [facility] Amlodipine Amlodipine Yes Kaylene take one Common Besylate Besylate [place] tablet by S pirit mouth once - [facility] daily [facility] Lopressor Lopressor Yes Kaylene 1 tablet Common [place] with food [facility] Albuterol Albuterol Yes Kaylene 3 ml as C ommon Sulfate Sulfate [place] needed [facility] Trazodone Trazodone Yes Kaylene 3 tabs Co mmon HCl HCl [place] [facility] Gemfibrozil Gemfibrozil Yes Kaylene TAKE 1 Common [place] TABLET BY Spirit MOUTH - CHI TWICE DAILY [facility] Pantoprazol Pantoprazol Yes Kaylene 1 tablet Common e Sodium e Sodium [place] [facility] Metoprolol Metoprolol No 1{table BID Metoprolol Tartrate 50 Tartrate 50 t_with_ Tartrate MG MG food} 50 MG Ventolin Ventolin No Ventolin HFA HFA HFA 108MCG/A 108MCG/A 108MCG/A SEROquel SEROquel No 1{table QD SEROquel 200 MG 200 MG t} 200 MG Levothyroxi Levothyroxi No QD Levothyrox ne Sodium ne Sodium ine Sodium 50 MCG 50 MCG 50 MCG Albuterol Albuterol No 3{ml_as Albuterol Sulfate Sulfate _needed Sulfate (2.5 (2.5 } (2.5 MG/3ML) MG/3ML) MG/3ML) 0.083% 0.083% 0.083% Vitamin D3 Vitamin D3 No 1{capsu QD Vitamin D3 1000 UNIT 1000 UNIT le} 1000 UNIT rOPINIRole rOPINIRole No 1{table TID rOPINIRole HCl 0.5 MG HCl 0.5 MG t} HCl 0.5 MG Trelegy Trelegy No Trelegy Ellipta Ellipta Ellipta 100-62.5-25 100-62.5-25 100-62.5-2 MCG/INH MCG/INH 5 MCG/INH rOPINIRole rOPINIRole No 1{table TID rOPINIRole HCl 0.5MG HCl 0.5MG t} HCl 0.5MG Gemfibrozil Gemfibrozil No BID Gemfibrozi 600 MG 600 MG l 600 MG traZODone traZODone No traZODone HCl 50 MG HCl 50 MG HCl 50 MG Pantoprazol Pantoprazol No 1{table QD Pantoprazo e Sodium 40 e Sodium 40 t} le Sodium MG MG 40 MG Ondansetron Ondansetron No 1{table QD Ondansetro HCl 8 MG HCl 8 MG t_as_ne n HCl 8 MG eded} Cymbalta 60 Cymbalta 60 No 1{capsu QD Cymbalta MG MG le} 60 MG Aspirin Aspirin No 1{table Aspirin Adult Low Adult Low t} Adult Low Strength 81 Strength 81 Strength MG MG 81 MG amLODIPine amLODIPine No 1{table QD amLODIPine Besylate 5 Besylate 5 t} Besylate 5 MG MG MG traZODone traZODone No HCl 50 MG HCl 50 MG Ventolin Ventolin No HFA HFA 108MCG/A 108MCG/A Sucralfate Sucralfate No 1{table BID 1 GM 1 GM t_on_an _empty_ stomach } Metoprolol Metoprolol No Tartrate 50 Tartrate 50 MG MG amLODIPine amLODIPine No Besylate 5 Besylate 5 MG MG rOPINIRole rOPINIRole No HCl 0.5 MG HCl 0.5 MG Gemfibrozil Gemfibrozil No 600 MG 600 MG predniSONE predniSONE No 1{table 10 MG 10 MG t} Vitamin D3 Vitamin D3 No 1{capsu QD 1000 UNIT 1000 UNIT le} Trelegy Trelegy No Ellipta Ellipta 100-62.5-25 100-62.5-25 MCG/INH MCG/INH SEROquel SEROquel No 1{table QD 200 MG 200 MG t} Cymbalta 60 Cymbalta 60 No 1{capsu QD MG MG le} Aspirin Aspirin No 1{table Adult Low Adult Low t} Strength 81 Strength 81 MG MG Pantoprazol Pantoprazol No 1{table BID e Sodium 40 e Sodium 40 t} MG MG Albuterol Albuterol No 3{ml_as Sulfate Sulfate _needed (2.5 (2.5 } MG/3ML) MG/3ML) 0.083% 0.083% Levothyroxi Levothyroxi No QD ne Sodium ne Sodium 75 MCG 75 MCG rOPINIRole rOPINIRole No rOPINIRole HCl 0.5 MG HCl 0.5 MG HCl 0.5 MG Cymbalta 60 Cymbalta 60 No 1{capsu QD Cymbalta MG MG le} 60 MG Levothyroxi Levothyroxi No QD Levothyrox ne Sodium ne Sodium ine Sodium 75 MCG 75 MCG 75 MCG Trelegy Trelegy No Trelegy Ellipta Ellipta Ellipta 100-62.5-25 100-62.5-25 100-62.5-2 MCG/INH MCG/INH 5 MCG/INH traZODone traZODone No traZODone HCl 50 MG HCl 50 MG HCl 50 MG amLODIPine amLODIPine No amLODIPine Besylate 5 Besylate 5 Besylate 5 MG MG MG Aspirin Aspirin No 1{table Aspirin Adult Low Adult Low t} Adult Low Strength 81 Strength 81 Strength MG MG 81 MG Pantoprazol Pantoprazol No 1{table BID Pantoprazo e Sodium 40 e Sodium 40 t} le Sodium MG MG 40 MG Ventolin Ventolin No Ventolin HFA HFA HFA 108MCG/A 108MCG/A 108MCG/A Metoprolol Metoprolol No Metoprolol Tartrate 50 Tartrate 50 Tartrate MG MG 50 MG SEROquel SEROquel No 1{table QD SEROquel 200 MG 200 MG t} 200 MG Albuterol Albuterol No 3{ml_as Albuterol Sulfate Sulfate _needed Sulfate (2.5 (2.5 } (2.5 MG/3ML) MG/3ML) MG/3ML) 0.083% 0.083% 0.083% Vitamin D3 Vitamin D3 No 1{capsu QD Vitamin D3 1000 UNIT 1000 UNIT le} 1000 UNIT Gemfibrozil Gemfibrozil No Gemfibrozi 600 MG 600 MG l 600 MG Gemfibrozil Gemfibrozil No BID Gemfibrozi 600 MG 600 MG l 600 MG Levothyroxi Levothyroxi No QD Levothyrox ne Sodium ne Sodium ine Sodium 75 MCG 75 MCG 75 MCG Cymbalta 60 Cymbalta 60 No 1{capsu QD Cymbalta MG MG le} 60 MG Vitamin D3 Vitamin D3 No 1{capsu QD Vitamin D3 1000 UNIT 1000 UNIT le} 1000 UNIT traZODone traZODone No traZODone HCl 50 MG HCl 50 MG HCl 50 MG Pantoprazol Pantoprazol No 1{table BID Pantoprazo e Sodium 40 e Sodium 40 t} le Sodium MG MG 40 MG rOPINIRole rOPINIRole No 1{table TID rOPINIRole HCl 0.5 MG HCl 0.5 MG t} HCl 0.5 MG Aspirin Aspirin No 1{table Aspirin Adult Low Adult Low t} Adult Low Strength 81 Strength 81 Strength MG MG 81 MG amLODIPine amLODIPine No 1{table QD amLODIPine Besylate 5 Besylate 5 t} Besylate 5 MG MG MG Trelegy Trelegy No 1{puff} QD Trelegy Ellipta Ellipta Ellipta 100-62.5-25 100-62.5-25 100-62.5-2 MCG/INH MCG/INH 5 MCG/INH Metoprolol Metoprolol No 1{table BID Metoprolol Tartrate 50 Tartrate 50 t_with_ Tartrate MG MG food} 50 MG Albuterol Albuterol No 3{ml_as Albuterol Sulfate Sulfate _needed Sulfate (2.5 (2.5 } (2.5 MG/3ML) MG/3ML) MG/3ML) 0.083% 0.083% 0.083% SEROquel SEROquel No 1{table QD SEROquel 200 MG 200 MG t} 200 MG Ventolin Ventolin No Ventolin HFA HFA HFA 108MCG/A 108MCG/A 108MCG/A traZODone traZODone No traZODone HCl 50 MG HCl 50 MG HCl 50 MG Ventolin Ventolin No Ventolin HFA HFA HFA 108MCG/A 108MCG/A 108MCG/A Aspirin Aspirin No 1{table Aspirin Adult Low Adult Low t} Adult Low Strength 81 Strength 81 Strength MG MG 81 MG SEROquel SEROquel No 1{table QD SEROquel 200 MG 200 MG t} 200 MG Cymbalta 60 Cymbalta 60 No 1{capsu QD Cymbalta MG MG le} 60 MG Albuterol Albuterol No 3{ml_as Albuterol Sulfate Sulfate _needed Sulfate (2.5 (2.5 } (2.5 MG/3ML) MG/3ML) MG/3ML) 0.083% 0.083% 0.083% Vitamin D3 Vitamin D3 No 1{capsu QD Vitamin D3 1000 UNIT 1000 UNIT le} 1000 UNIT amLODIPine amLODIPine No 1{table QD amLODIPine Besylate 5 Besylate 5 t} Besylate 5 MG MG MG traZODone traZODone No traZODone HCl 50 MG HCl 50 MG HCl 50 MG Ventolin Ventolin No Ventolin HFA HFA HFA 108MCG/A 108MCG/A 108MCG/A Aspirin Aspirin No 1{table Aspirin Adult Low Adult Low t} Adult Low Strength 81 Strength 81 Strength MG MG 81 MG SEROquel SEROquel No 1{table QD SEROquel 200 MG 200 MG t} 200 MG Cymbalta 60 Cymbalta 60 No 1{capsu QD Cymbalta MG MG le} 60 MG Albuterol Albuterol No 3{ml_as Albuterol Sulfate Sulfate _needed Sulfate (2.5 (2.5 } (2.5 MG/3ML) MG/3ML) MG/3ML) 0.083% 0.083% 0.083% Vitamin D3 Vitamin D3 No 1{capsu QD Vitamin D3 1000 UNIT 1000 UNIT le} 1000 UNIT amLODIPine amLODIPine No 1{table QD amLODIPine Besylate 5 Besylate 5 t} Besylate 5 MG MG MG traZODone traZODone No traZODone HCl 50 MG HCl 50 MG HCl 50 MG Ventolin Ventolin No Ventolin HFA HFA HFA 108MCG/A 108MCG/A 108MCG/A Aspirin Aspirin No 1{table Aspirin Adult Low Adult Low t} Adult Low Strength 81 Strength 81 Strength MG MG 81 MG SEROquel SEROquel No 1{table QD SEROquel 200 MG 200 MG t} 200 MG Cymbalta 60 Cymbalta 60 No 1{capsu QD Cymbalta MG MG le} 60 MG Albuterol Albuterol No 3{ml_as Albuterol Sulfate Sulfate _needed Sulfate (2.5 (2.5 } (2.5 MG/3ML) MG/3ML) MG/3ML) 0.083% 0.083% 0.083% Vitamin D3 Vitamin D3 No 1{capsu QD Vitamin D3 1000 UNIT 1000 UNIT le} 1000 UNIT amLODIPine amLODIPine No 1{table QD amLODIPine Besylate 5 Besylate 5 t} Besylate 5 MG MG MG traZODone traZODone No traZODone HCl 50 MG HCl 50 MG HCl 50 MG Ventolin Ventolin No Ventolin HFA HFA HFA 108MCG/A 108MCG/A 108MCG/A Aspirin Aspirin No 1{table Aspirin Adult Low Adult Low t} Adult Low Strength 81 Strength 81 Strength MG MG 81 MG SEROquel SEROquel No 1{table QD SEROquel 200 MG 200 MG t} 200 MG Cymbalta 60 Cymbalta 60 No 1{capsu QD Cymbalta MG MG le} 60 MG Albuterol Albuterol No 3{ml_as Albuterol Sulfate Sulfate _needed Sulfate (2.5 (2.5 } (2.5 MG/3ML) MG/3ML) MG/3ML) 0.083% 0.083% 0.083% Vitamin D3 Vitamin D3 No 1{capsu QD Vitamin D3 1000 UNIT 1000 UNIT le} 1000 UNIT amLODIPine amLODIPine No 1{table QD amLODIPine Besylate 5 Besylate 5 t} Besylate 5 MG MG MG traZODone traZODone No traZODone HCl 50 MG HCl 50 MG HCl 50 MG Ventolin Ventolin No Ventolin HFA HFA HFA 108MCG/A 108MCG/A 108MCG/A Aspirin Aspirin No 1{table Aspirin Adult Low Adult Low t} Adult Low Strength 81 Strength 81 Strength MG MG 81 MG SEROquel SEROquel No 1{table QD SEROquel 200 MG 200 MG t} 200 MG Cymbalta 60 Cymbalta 60 No 1{capsu QD Cymbalta MG MG le} 60 MG Albuterol Albuterol No 3{ml_as Albuterol Sulfate Sulfate _needed Sulfate (2.5 (2.5 } (2.5 MG/3ML) MG/3ML) MG/3ML) 0.083% 0.083% 0.083% Vitamin D3 Vitamin D3 No 1{capsu QD Vitamin D3 1000 UNIT 1000 UNIT le} 1000 UNIT amLODIPine amLODIPine No 1{table QD amLODIPine Besylate 5 Besylate 5 t} Besylate 5 MG MG MG traZODone traZODone No traZODone HCl 50 MG HCl 50 MG HCl 50 MG Ventolin Ventolin No Ventolin HFA HFA HFA 108MCG/A 108MCG/A 108MCG/A Aspirin Aspirin No 1{table Aspirin Adult Low Adult Low t} Adult Low Strength 81 Strength 81 Strength MG MG 81 MG SEROquel SEROquel No 1{table QD SEROquel 200 MG 200 MG t} 200 MG Cymbalta 60 Cymbalta 60 No 1{capsu QD Cymbalta MG MG le} 60 MG Albuterol Albuterol No 3{ml_as Albuterol Sulfate Sulfate _needed Sulfate (2.5 (2.5 } (2.5 MG/3ML) MG/3ML) MG/3ML) 0.083% 0.083% 0.083% Vitamin D3 Vitamin D3 No 1{capsu QD Vitamin D3 1000 UNIT 1000 UNIT le} 1000 UNIT amLODIPine amLODIPine No 1{table QD amLODIPine Besylate 5 Besylate 5 t} Besylate 5 MG MG MG traZODone traZODone No traZODone HCl 50 MG HCl 50 MG HCl 50 MG Ventolin Ventolin No Ventolin HFA HFA HFA 108MCG/A 108MCG/A 108MCG/A Aspirin Aspirin No 1{table Aspirin Adult Low Adult Low t} Adult Low Strength 81 Strength 81 Strength MG MG 81 MG SEROquel SEROquel No 1{table QD SEROquel 200 MG 200 MG t} 200 MG Cymbalta 60 Cymbalta 60 No 1{capsu QD Cymbalta MG MG le} 60 MG Albuterol Albuterol No 3{ml_as Albuterol Sulfate Sulfate _needed Sulfate (2.5 (2.5 } (2.5 MG/3ML) MG/3ML) MG/3ML) 0.083% 0.083% 0.083% Vitamin D3 Vitamin D3 No 1{capsu QD Vitamin D3 1000 UNIT 1000 UNIT le} 1000 UNIT amLODIPine amLODIPine No 1{table QD amLODIPine Besylate 5 Besylate 5 t} Besylate 5 MG MG MG Aspirin Aspirin No 1{table Aspirin Adult Low Adult Low t} Adult Low Strength 81 Strength 81 Strength MG MG 81 MG Gemfibrozil Gemfibrozil No BID Gemfibrozi 600 MG 600 MG l 600 MG rOPINIRole rOPINIRole No 1{table TID rOPINIRole HCl 0.5 MG HCl 0.5 MG t} HCl 0.5 MG Cymbalta 60 Cymbalta 60 No 1{capsu QD Cymbalta MG MG le} 60 MG traZODone traZODone No traZODone HCl 50 MG HCl 50 MG HCl 50 MG SEROquel SEROquel No 1{table QD SEROquel 200 MG 200 MG t} 200 MG Pantoprazol Pantoprazol No 1{table BID Pantoprazo e Sodium 40 e Sodium 40 t} le Sodium MG MG 40 MG Levothyroxi Levothyroxi No QD Levothyrox ne Sodium ne Sodium ine Sodium 75 MCG 75 MCG 75 MCG Ventolin Ventolin No Ventolin HFA HFA HFA 108MCG/A 108MCG/A 108MCG/A Metoprolol Metoprolol No 1{table BID Metoprolol Tartrate 50 Tartrate 50 t_with_ Tartrate MG MG food} 50 MG amLODIPine amLODIPine No 1{table QD amLODIPine Besylate 5 Besylate 5 t} Besylate 5 MG MG MG Albuterol Albuterol No 3{ml_as Albuterol Sulfate Sulfate _needed Sulfate (2.5 (2.5 } (2.5 MG/3ML) MG/3ML) MG/3ML) 0.083% 0.083% 0.083% Vitamin D3 Vitamin D3 No 1{capsu QD Vitamin D3 1000 UNIT 1000 UNIT le} 1000 UNIT Vitamin D3 Vitamin D3 No 1{capsu QD Vitamin D3 1000 UNIT 1000 UNIT le} 1000 UNIT Gemfibrozil Gemfibrozil No BID Gemfibrozi 600 MG 600 MG l 600 MG Gemfibrozil Gemfibrozil No BID Gemfibrozi 600 MG 600 MG l 600 MG SEROquel SEROquel No 1{table QD SEROquel 200 MG 200 MG t} 200 MG Cymbalta 60 Cymbalta 60 No 1{capsu QD Cymbalta MG MG le} 60 MG Levothyroxi Levothyroxi No QD Levothyrox ne Sodium ne Sodium ine Sodium 50 MCG 50 MCG 50 MCG rOPINIRole rOPINIRole No 1{table TID rOPINIRole HCl 0.5 MG HCl 0.5 MG t} HCl 0.5 MG rOPINIRole rOPINIRole No 1{table TID rOPINIRole HCl 0.5MG HCl 0.5MG t} HCl 0.5MG amLODIPine amLODIPine No 1{table QD amLODIPine Besylate 5 Besylate 5 t} Besylate 5 MG MG MG Metoprolol Metoprolol No 1{table BID Metoprolol Tartrate 50 Tartrate 50 t_with_ Tartrate MG MG food} 50 MG Pantoprazol Pantoprazol No 1{table QD Pantoprazo e Sodium 40 e Sodium 40 t} le Sodium MG MG 40 MG Trelegy Trelegy No Trelegy Ellipta Ellipta Ellipta 100-62.5-25 100-62.5-25 100-62.5-2 MCG/INH MCG/INH 5 MCG/INH Ventolin Ventolin No Ventolin HFA HFA HFA 108MCG/A 108MCG/A 108MCG/A Metoprolol Metoprolol No BID Metoprolol Tartrate 50 Tartrate 50 Tartrate MG MG 50 MG Albuterol Albuterol No 3{ml_as Albuterol Sulfate Sulfate _needed Sulfate (2.5 (2.5 } (2.5 MG/3ML) MG/3ML) MG/3ML) 0.083% 0.083% 0.083% amLODIPine amLODIPine No QD amLODIPine Besylate Besylate Besylate 5MG 5MG 5MG Ondansetron Ondansetron No 1{table QD Ondansetro HCl 8 MG HCl 8 MG t_as_ne n HCl 8 MG eded} traZODone traZODone No traZODone HCl 50 MG HCl 50 MG HCl 50 MG Aspirin Aspirin No 1{table Aspirin Adult Low Adult Low t} Adult Low Strength 81 Strength 81 Strength MG MG 81 MG Ventolin Ventolin No Ventolin HFA HFA HFA 108MCG/A 108MCG/A 108MCG/A Levothyroxi Levothyroxi No QD Levothyrox ne Sodium ne Sodium ine Sodium 50 MCG 50 MCG 50 MCG SEROquel SEROquel No 1{table QD SEROquel 200 MG 200 MG t} 200 MG Metoprolol Metoprolol No 1{table BID Metoprolol Tartrate 50 Tartrate 50 t_with_ Tartrate MG MG food} 50 MG Albuterol Albuterol No 3{ml_as Albuterol Sulfate Sulfate _needed Sulfate (2.5 (2.5 } (2.5 MG/3ML) MG/3ML) MG/3ML) 0.083% 0.083% 0.083% Vitamin D3 Vitamin D3 No 1{capsu QD Vitamin D3 1000 UNIT 1000 UNIT le} 1000 UNIT rOPINIRole rOPINIRole No 1{table TID rOPINIRole HCl 0.5 MG HCl 0.5 MG t} HCl 0.5 MG Trelegy Trelegy No Trelegy Ellipta Ellipta Ellipta 100-62.5-25 100-62.5-25 100-62.5-2 MCG/INH MCG/INH 5 MCG/INH rOPINIRole rOPINIRole No 1{table TID rOPINIRole HCl 0.5MG HCl 0.5MG t} HCl 0.5MG Gemfibrozil Gemfibrozil No BID Gemfibrozi 600 MG 600 MG l 600 MG traZODone traZODone No traZODone HCl 50 MG HCl 50 MG HCl 50 MG Pantoprazol Pantoprazol No 1{table QD Pantoprazo e Sodium 40 e Sodium 40 t} le Sodium MG MG 40 MG Ondansetron Ondansetron No 1{table QD Ondansetro HCl 8 MG HCl 8 MG t_as_ne n HCl 8 MG eded} Cymbalta 60 Cymbalta 60 No 1{capsu QD Cymbalta MG MG le} 60 MG Aspirin Aspirin No 1{table Aspirin Adult Low Adult Low t} Adult Low Strength 81 Strength 81 Strength MG MG 81 MG amLODIPine amLODIPine No 1{table QD amLODIPine Besylate 5 Besylate 5 t} Besylate 5 MG MG MG Ventolin Ventolin No Ventolin HFA HFA HFA 108MCG/A 108MCG/A 108MCG/A Levothyroxi Levothyroxi No QD Levothyrox ne Sodium ne Sodium ine Sodium 50 MCG 50 MCG 50 MCG SEROquel SEROquel No 1{table QD SEROquel 200 MG 200 MG t} 200 MG Metoprolol Metoprolol No 1{table BID Metoprolol Tartrate 50 Tartrate 50 t_with_ Tartrate MG MG food} 50 MG Albuterol Albuterol No 3{ml_as Albuterol Sulfate Sulfate _needed Sulfate (2.5 (2.5 } (2.5 MG/3ML) MG/3ML) MG/3ML) 0.083% 0.083% 0.083% Vitamin D3 Vitamin D3 No 1{capsu QD Vitamin D3 1000 UNIT 1000 UNIT le} 1000 UNIT rOPINIRole rOPINIRole No 1{table TID rOPINIRole HCl 0.5 MG HCl 0.5 MG t} HCl 0.5 MG Trelegy Trelegy No Trelegy Ellipta Ellipta Ellipta 100-62.5-25 100-62.5-25 100-62.5-2 MCG/INH MCG/INH 5 MCG/INH rOPINIRole rOPINIRole No 1{table TID rOPINIRole HCl 0.5MG HCl 0.5MG t} HCl 0.5MG Gemfibrozil Gemfibrozil No BID Gemfibrozi 600 MG 600 MG l 600 MG traZODone traZODone No traZODone HCl 50 MG HCl 50 MG HCl 50 MG Pantoprazol Pantoprazol No 1{table QD Pantoprazo e Sodium 40 e Sodium 40 t} le Sodium MG MG 40 MG Ondansetron Ondansetron No 1{table QD Ondansetro HCl 8 MG HCl 8 MG t_as_ne n HCl 8 MG eded} Cymbalta 60 Cymbalta 60 No 1{capsu QD Cymbalta MG MG le} 60 MG Aspirin Aspirin No 1{table Aspirin Adult Low Adult Low t} Adult Low Strength 81 Strength 81 Strength MG MG 81 MG amLODIPine amLODIPine No 1{table QD amLODIPine Besylate 5 Besylate 5 t} Besylate 5 MG MG MG Metoprolol Metoprolol No 1{table BID Metoprolol Tartrate 50 Tartrate 50 t_with_ Tartrate MG MG food} 50 MG Ventolin Ventolin No Ventolin HFA HFA HFA 108MCG/A 108MCG/A 108MCG/A SEROquel SEROquel No 1{table QD SEROquel 200 MG 200 MG t} 200 MG Levothyroxi Levothyroxi No QD Levothyrox ne Sodium ne Sodium ine Sodium 50 MCG 50 MCG 50 MCG Albuterol Albuterol No 3{ml_as Albuterol Sulfate Sulfate _needed Sulfate (2.5 (2.5 } (2.5 MG/3ML) MG/3ML) MG/3ML) 0.083% 0.083% 0.083% Vitamin D3 Vitamin D3 No 1{capsu QD Vitamin D3 1000 UNIT 1000 UNIT le} 1000 UNIT rOPINIRole rOPINIRole No 1{table TID rOPINIRole HCl 0.5 MG HCl 0.5 MG t} HCl 0.5 MG Trelegy Trelegy No Trelegy Ellipta Ellipta Ellipta 100-62.5-25 100-62.5-25 100-62.5-2 MCG/INH MCG/INH 5 MCG/INH rOPINIRole rOPINIRole No 1{table TID rOPINIRole HCl 0.5MG HCl 0.5MG t} HCl 0.5MG Gemfibrozil Gemfibrozil No BID Gemfibrozi 600 MG 600 MG l 600 MG traZODone traZODone No traZODone HCl 50 MG HCl 50 MG HCl 50 MG Pantoprazol Pantoprazol No 1{table QD Pantoprazo e Sodium 40 e Sodium 40 t} le Sodium MG MG 40 MG Ondansetron Ondansetron No 1{table QD Ondansetro HCl 8 MG HCl 8 MG t_as_ne n HCl 8 MG eded} Cymbalta 60 Cymbalta 60 No 1{capsu QD Cymbalta MG MG le} 60 MG Aspirin Aspirin No 1{table Aspirin Adult Low Adult Low t} Adult Low Strength 81 Strength 81 Strength MG MG 81 MG amLODIPine amLODIPine No 1{table QD amLODIPine Besylate 5 Besylate 5 t} Besylate 5 MG MG MG Immunizations Ordered Immunization Filled Immunization Date Status Commen ts Source Name Name FLUZONE HIGH DOSE FLUZONE HIGH DOSE 2020-06-01 Completed [facility] OVER 65 OVER 65 11:03:00 - [facility] FLUZONE HIGH DOSE FLUZONE HIGH DOSE 2020-06-01 Completed [facility] OVER 65 OVER 65 11:03:00 - [facility] FLUZONE HIGH DOSE FLUZONE HIGH DOSE 2020-06-01 Completed [facility] OVER 65 OVER 65 11:03:00 - [facility] FLUZONE HIGH DOSE FLUZONE HIGH DOSE 2020-06-01 Completed [facility] OVER 65 OVER 65 11:03:00 - [facility] FLUZONE HIGH DOSE FLUZONE HIGH DOSE 2020-06-01 Completed [facility] OVER 65 OVER 65 11:03:00 - [facility] FLUZONE HIGH DOSE FLUZONE HIGH DOSE 2020-06-01 Completed [facility] OVER 65 OVER 65 11:03:00 - [facility] FLUZONE HIGH DOSE FLUZONE HIGH DOSE 2020-06-01 Completed [facility] OVER 65 OVER 65 11:03:00 - [facility] FLUZONE HIGH DOSE FLUZONE HIGH DOSE 2020-06-01 Completed [facility] OVER 65 OVER 65 11:03:00 - [facility] FLUZONE HIGH DOSE FLUZONE HIGH DOSE 2020-06-01 Completed [facility] OVER 65 OVER 65 11:03:00 - [facility] FLUZONE HIGH DOSE FLUZONE HIGH DOSE 2020-06-01 Completed [facility] OVER 65 OVER 65 11:03:00 - [facility] FLUZONE HIGH DOSE FLUZONE HIGH DOSE 2020-06-01 Completed [facility] OVER 65 OVER 65 11:03:00 - [facility] FLUZONE HIGH DOSE FLUZONE HIGH DOSE 2020-06-01 Completed [facility] OVER 65 OVER 65 11:03:00 - [facility] FLUZONE HIGH DOSE FLUZONE HIGH DOSE 2020-06-01 Completed [facility] OVER 65 OVER 65 11:03:00 - [facility] FLUZONE HIGH DOSE FLUZONE HIGH DOSE 2020-06-01 Completed [facility] OVER 65 OVER 65 11:03:00 - [facility] FLUZONE HIGH DOSE FLUZONE HIGH DOSE 2020-06-01 Completed [facility] OVER 65 OVER 65 11:03:00 - [facility] FLUZONE HIGH DOSE FLUZONE HIGH DOSE 2020-06-01 Completed [facility] OVER 65 OVER 65 11:03:00 - [facility] Vital Signs Vital Name Observation Time Observation Value Comments Source height 2022-02-23 10:20:00 62 [in_i] [facility] weight 2022-02-23 10:20:00 96 [lb_av] [facility] temperature 2022-02-23 10:20:00 99.0 [degF] [facility] bmi 2022-02-23 10:20:00 17.56 kg/m2 [facility] height 2021-10-27 16:20:00 62 [in_i] [facility] weight 2021-10-27 16:20:00 95.8 [lb_av] [facility] temperature 2021-10-27 16:20:00 97.3 [degF] [facility] bmi 2021-10-27 16:20:00 17.52 kg/m2 [facility] oximetry 2021-10-27 16:20:00 98 % [facility] respiratory rate 2021-10-27 16:20:00 18 /min [facility] blood pressure 2021-10-27 16:20:00 159 mm[Hg] [facility] systolic [facility] blood pressure 2021-10-27 16:20:00 74 mm[Hg] [facility] - diastolic [facility] height 2021-06-01 08:20:00 62 [in_i] Common [facility] weight 2021-06-01 08:20:00 89.4 [lb_av] Common [facility] temperature 2021-06-01 08:20:00 97.9 [degF] Common [facility] bmi 2021-06-01 08:20:00 16.35 kg/m2 Common [facility] oximetry 2021-06-01 08:20:00 99 % Common [facility] respiratory rate 2021-06-01 08:20:00 16 /min [facility] on [facility] blood pressure 2021-06-01 08:20:00 98 mm[Hg] Common [facility] - systolic [facility] blood pressure 2021-06-01 08:20:00 54 mm[Hg] Common [facility] - diastolic [facility] Procedures This patient has no known procedures. Encounters Start End Encounter Admission Attending Care Care Encounter Source Date/Time Date/Time Type Type Clinicians Facility Department ID 2022-03-03 [facility] [id number] Common 08:01:00 Kaylene [facility] 2021-11-03 Outpatient Melani, [facility] [id number] Common 09:35:00 Kaylene [facility] 2021-10-27 Outpatient [place], [facility] [id number] Common 17:04:00 Kaylene [facility] 2021-10-25 Outpatient Melani, [facility] [id number] Common 11:15:01 Kaylene [facility] 2021-07-20 Outpatient [place], [facility] [id number] Common 14:06:12 Kaylene 20180 [facility] 2021-07-20 Outpatient [place], [facility] [id number] Common 12:10:57 Kaylene 38521 [facility] 2021-07-20 Outpatient [place], STLMLC STLMLC [id number] Common 11:20:37 Kaylene [id number] [facility] 2021-07-20 Outpatient [place], STLMLC STLMLC [id number] Common 11:08:50 Kaylene 11830 [facility] 2021-07-20 Outpatient [place], STLMLC STLMLC [id number] Common 11:00:43 Kaylene [id number] [facility] 2021-07-20 Outpatient [place], STLMLC STLMLC [id number] Common 10:57:27 Kaylene 26499 [facility] 2022-03-24 2022-03-24 (TEL) STLMLC STLMLC [id number] Co mmon 00:00:00 00:00:00 [facility] 2022-02-23 2022-02-23 OL DIG E/M STLMLC STLMLC [id number] Common 00:00:00 00:00:00 SVC 11-20 Spir it MIN [facility] 2022-02-23 2022-02-23 (TEL) STLMLC STLMLC [id number] Co mmon 00:00:00 00:00:00 [facility] 2021-10-27 2021-10-27 OFFICE STLMLC STLMLC [id number] Co mmon 00:00:00 00:00:00 VISIT EST Spir it PT LEVEL 3 [facility] 2021-09-19 2021-09-19 (TEL) STLMLC STLMLC [id number] Co mmon 00:00:00 00:00:00 [facility] 2021-07-09 2021-07-09 (TEL) STLMLC STLMLC [id number] Co mmon 00:00:00 00:00:00 [facility] 2021-07-08 2021-07-08 (TEL) STLMLC STLMLC [id number] Co mmon 00:00:00 00:00:00 [facility] 2021-07-08 2021-07-08 (TEL) STLMLC STLMLC [id number] Co mmon 00:00:00 00:00:00 [facility] 2021-07-08 2021-07-08 (TEL) STLMLC STLMLC [id number] Co mmon 00:00:00 00:00:00 [facility] 2021-07-08 2021-07-08 (TEL) STLMLC STLMLC [id number] Co mmon 00:00:00 00:00:00 [facility] 2021-07-08 2021-07-08 (TEL) STLMLC STLMLC [id number] Co mmon 00:00:00 00:00:00 [facility] 2021-07-08 2021-07-08 (TEL) STLMLC STLMLC [id number] Co mmon 00:00:00 00:00:00 [facility] 2021-07-06 2021-07-06 (TEL) STLMLC STLMLC [id number] Co mmon 00:00:00 00:00:00 [facility] 2021-06-01 2021-06-01 OFFICE STLMLC STLMLC [id number] Co mmon 00:00:00 00:00:00 VISIT EST Spir it PT LEVEL 3 [facility] 2021-04-21 2021-04-21 (TEL) STLMLC STLMLC [id number] Co mmon 00:00:00 00:00:00 [facility] 2021-01-25 2021-01-25 Outpatient STLMLC STLMLC [id number] Common 00:00:00 00:00:00 [facility] 2020-12-21 2020-12-21 Outpatient STLMLC STLMLC [id number] Common 00:00:00 00:00:00 [facility] 2020-12-17 2020-12-17 Outpatient STLMLC STLMLC [id number] Common 00:00:00 00:00:00 [facility] 2020-09-15 2020-09-15 Outpatient STLMLC STLMLC [id number] Common 00:00:00 00:00:00 [facility] 2020-08-30 2020-08-30 Outpatient STLMLC STLMLC [id number] Common 00:00:00 00:00:00 [facility] 2020-08-27 2020-08-27 Outpatient STLMLC STLMLC [id number] Common 00:00:00 00:00:00 [facility] 2020-08-26 2020-08-26 Outpatient STLMLC STLMLC [id number] Common 00:00:00 00:00:00 [facility] 2020-06-01 2020-06-01 Outpatient STLMLC STLMLC [id number] Common 00:00:00 00:00:00 [facility] 2019-12-16 2019-12-16 [facility] [id number] Common 09:18:00 09:18:00 t [facility] [address] [facility] 2019-11-27 2019-11-27 Out[facility] [id number] Common 13:00:00 13:00:00 t [facility] [address] [facility] 2019-10-29 2019-10-29 [facility] [id number] Common 09:20:00 09:20:[address] [facility] 2019-08-26 2019-08-26 [facility] [id number] Common 10:00:00 10:00:[address] [facility] 2019-08-14 2019-08-14 [facility] [id number] Common 10:40:00 10:40:[address] [facility] 2019-07-09 2019-07-09 [facility] [id number] Common 14:20:00 14:20:[address] [facility] 2019-06-27 2019-06-27 [facility] [id number] Common 10:20:00 10:20:00 t [facility] Results This patient has no known results.
[2022-05-30] MEDS ORDERED: METHYLPREDNISOLONE 40 MG INJ ONE (19:51)
[2022-05-30] MEDS ORDERED: IPRATROPIUM BROM 0.5MG/2.5ML ONE (19:52)
[2022-05-30] MEDS ORDERED: LEVALBUTEROL 1.25 MG/3 ML NEB ONE (19:52)
[2022-05-30 19:55] LABS: Absolute Lymphocytes (CBC) 0.9 K/uL (0.7-4.9); Hematocrit 34.1 % (36.0-45.0); Lymphocytes % 14.2 % (15.3-44.8); MCV 83.7 fL (80-100); MPV 8.7 fL (7.6-11.3); RBC Red Blood Cell Count 4.07 M/uL (3.86-4.86)
--- NOTE | 2022-05-30 19:56 | RAD REPORT ---
EXAM DESCRIPTION: Yissel Single View05/30/2022 7:41 pm CLINICAL HISTORY: Shortness of breath COMPARISON: March 2022 FINDINGS: Bilateral scarring within the lungs. Lungs are hyperaerated consistent with COPD. The lungs appear clear of acute infiltrate. The heart is normal size IMPRESSION: No acute abnormalities displayed
[2022-05-30 19:59] LABS: Protime INR 1.02
[2022-05-30 20:16] LABS: ALT/SGPT 14 U/L (12-78); AST/SGOT 17 U/L (15-37); Albumin 3.3 g/dL (3.4-5.0); Alkaline Phosphatase 74 U/L (45-117); BUN Blood Urea Nitrogen 13 mg/dL (7-18); Bicarbonate 31 mmol/L (21-32); Bilirubin Total 0.3 mg/dL (0.2-1.0); Glomerular Filtration Rate 48 ml/min (=/>90); Glucose Level 107 mg/dL (74-106); Magnesium 2.1 mg/dL (1.8-2.4); NT PRO-BNP 624 pg/mL (<125); Potassium 3.7 mmol/L (3.5-5.1); Protein, Total 7.7 g/dL (6.4-8.2); Sodium Level 141 mmol/L (136-145); Troponin High Sensitivity 15.2 pg/mL (<58.9)
[2022-05-30 20:19] LABS: Bilirubin Direct < 0.1 mg/dL (0-0.2)
[2022-05-30 20:36] LABS: SARS-COV-2 RT PCR NEGATIVE (NEGATIVE)
--- NOTE | 2022-05-30 21:34 | ER ---
Nurse's Notes [facility] Name: Louise Raines Age: 71 yrs Sex: Female : 1950 Arrival Date: 05/30/2022 Time: 18:46 Bed 20 Private MD: Diagnosis: COPD/ Chronic obstructive pulmonary disease with acute lower respiratory infection;Influenza due to identified novel influenza A virus with other respiratory manifestations;Acute and chronic respiratory failure with hypoxia Presentation: 05/30 18:46 Chief complaint: EMS states: pt has hx of COPD, SOB became worse today, daughter stated vg1 pt has been in bed all day, pt c/o Chest pressure. Pt uses O2 at home 3-4L and was 98% upon arrival of EMS. Pt placed in truck on 4 L NC and O2 was 94%. Pt appears to be in tripod position with labored breathing. 18:46 Coronavirus screen: Vaccine status: Patient reports being unvaccinated. Client denies vg1 travel out of the [place] in the last 14 days. Client presents with at least one sign or symptom that may indicate coronavirus-19. Standard/surgical mask placed on the client. Ebola Screen: Patient negative for fever greater than or equal to 101.5 degrees Fahrenheit, and additional compatible Ebola Virus Disease symptoms. Initial Sepsis Screen: Does the patient meet any 2 criteria? RR > 20 per min. HR > 90 bpm. Yes Does the patient have a suspected source of infection? No. Patient's initial sepsis screen is negative. If YES to both, name of provider notified: Malcolm ROA. Risk Assessment: Do you want to hurt yourself or someone else? Patient reports no desire to harm self or others. Onset of symptoms was May 30, 2022. 18:46 Method Of Arrival: EMS: [facility] vg1 18:46 Acuity: JAIME 2 vg1 18:46 Care prior to arrival: IV initiated. 22 GA, in the right antecubital area. vg1 Triage Assessment: 18:46 General: Appears uncomfortable, ill, slender, Behavior is cooperative. Pain: Complains vg1 of pain in chest Pain does not radiate. Quality of pain is described as pressure. Neuro: Level of Consciousness is awake, alert, obeys commands, Oriented to person, place, time, situation. Cardiovascular: Capillary refill is > 3 seconds in bilateral fingers. Respiratory: Reports shortness of breath at rest on exertion Airway is patent Respiratory effort is even, labored, using tripod position, Breath sounds are diminished bilaterally. Onset: The symptoms/episode began/occurred this morning, the patient has moderate shortness of breath. Derm: Skin is diaphoretic. Historical: - Allergies: 19:08 Adhesives; vg1 19:08 ambien; vg1 19:08 Baclofen; vg1 19:08 Iodinated Contrast Media - IV Dye; vg1 19:08 Iodine; vg1 - Home Meds: 12 00:52 aspirin 81 mg Oral cap 1 cap once daily [Active]; Lopid 600 mg Oral tab 1 tab 2 times kd3 per day [Active]; levothyroxine 75 mcg tab 1 tab once daily [Active]; duloxetine 60 mg Oral CDRS 1 cap once daily [Active]; metoprolol tartrate 50 mg Oral tab 1 tab 2 times per day [Active]; pantoprazole 40 mg Oral TbEC 1 tab 2 times per day [Active]; quetiapine 200 mg Oral tab 1 tab nightly [Active]; trazodone 50 mg Oral tab 3.5 tab nightly [Active]; ropinirole 0.5 mg Oral tab 1 tab 3 times per day [Active]; Trelegy Ellipta 100-62.5-25 mcg inhalation dsdv 1 puff once daily [Active]; Vitamin D3 25 mcg (1,000 unit) Oral cap daily [Active]; albuterol sulfate inhalation Inhl 2 puffs 4 times per day [Active]; amlodipine 5 mg tab 1 tab once daily [Active]; - PMHx: 05/30 19:08 Continuous home O2 \T\ 5L; COPD; Hypertension; Hypothyroidism; ulcerative colitis; vg1 - PSHx: 19:08 Cholecystectomy; colon and rectal sx; stent placed in left arm; Total abdominal vg1 hysterectomy; - Immunization history:: Client reports having NOT received the Covid vaccine. - Social history:: Smoking status: Patient reports the use of cigarette tobacco products, smokes one-half pack cigarettes per day. Screenin:11 Abuse screen: Denies threats or abuse. Nutritional screening: No deficits noted. vg1 Tuberculosis screening: No symptoms or risk factors identified. Fall Risk No fall in past 12 months (0 pts). No secondary diagnosis (0 pts). IV access (20 points). Ambulatory Aid- None/Bed Rest/Nurse Assist (0 pts). Gait- Weak (10 pts.). Mental Status- Oriented to own ability (0 pts). Total Bernard Fall Scale indicates Low Risk Score (25-44 pts). Fall prevention measures have been instituted. Side Rails Up X 2 Placed close to Nursing Station As available Patient and Family Educated on Fall Prevention Program and strategies. Assessment: 23:08 General: Appears uncomfortable, Behavior is calm, cooperative. General: Pt condition kd3 improved. no longer in the tripod position. . Neuro: Level of Consciousness is awake, alert, obeys commands, Oriented to person, place, time, situation. Cardiovascular: Rhythm is regular. Respiratory: Airway is patent Trachea midline Respiratory effort is even, labored, Respiratory pattern is regular, symmetrical. 05/31 00:52 Reassessment: Patient and/or family updated on plan of care and expected duration. Pain kd3 level reassessed. Patient is alert, oriented x 3, equal unlabored respirations, skin warm/dry/pink. Patient states feeling better. Patient states symptoms have improved. Respiratory: Patient placed on BiPAP:. Vital Signs: 05/30 18:46 BP 187 / 85; Pulse 123; Resp 24; Temp 97.7(O); Pulse Ox 90% on 4 lpm NC; Weight 40.37 vg1 kg; Height 5 ft. 0 in. (152.40 cm); 21:53 BP 171 / 63; Pulse 102; Resp 21; Pulse Ox 100% on 4 lpm NC; kd3 23:09 BP 158 / 58; Pulse 108; Resp 19; Pulse Ox 97% on 4 lpm NC; kd3 23:38 BP 185 / 73; Pulse 117; Resp 18; Pulse Ox 98% on 3.5 lpm NC; kd3 05/31 00:54 BP 189 / 76; Pulse 116; Resp 19; Pulse Ox 97% on BiPAP; kd3 02:57 BP 156 / 69; Pulse 125; Resp 21; Pulse Ox 99% on BiPAP; kd3 03:12 Temp 98.2(O); kd3 05/30 18:46 Body Mass Index 17.38 (40.37 kg, 152.40 cm) vg1 ED Course: 05/30 18:46 Patient arrived in ED. vg1 18:46 Arm band placed on. vg1 18:53 Malcolm Dobson PA is PHCP. cp 18:53 Jersey Porter MD is Attending Physician. cp 19:08 Triage completed. vg1 19:09 Malcolm Teran MD is Attending Physician. cp 19:11 Patient has correct armband on for positive identification. Bed in low position. Call vg1 light in reach. Side rails up X 1. Adult w/ patient. Client placed on continuous cardiac and pulse oximetry monitoring. NIBP monitoring applied. 19:35 Mary Henriquez, RN is Primary Nurse. kd3 19:35 Lactate w/ 2H reflex if indic. Sent. kd3 19:35 Procalcitonin Sent. kd3 19:35 COVID-19/FLU A+B/RSV Sent. kd3 19:43 XRAY Chest (1 view) In Process Unspecified. EDMS 19:46 Troponin HS Sent. kd3 19:46 PT-INR Sent. kd3 19:46 NT PRO-BNP Sent. kd3 19:46 Magnesium Sent. kd3 19:46 LFT's Sent. kd3 19:46 D-Dimer Sent. kd3 19:46 CBC with Diff Sent. kd3 19:46 Basic Metabolic Panel Sent. kd3 20:16 COVID-19/FLU A+B/RSV Sent. kd3 21:33 Saran Mata MD is Hospitalizing Provider. cp 23:00 Accessed peripheral vein via ultrasound, utilizing dynamic ultrasound technique bb Powerglide midline 20g 8cm to right upper arm using hospital protocol with good blood return and flushes easily pt tolerated well. 23:09 No provider procedures requiring assistance completed. kd3 12 03:52 Urine Microscopic Only Sent. kd3 03:53 Patient admitted, IV remains in place. kd3 Administered Medications: 05/30 20:16 Drug: Xopenex (levalbuterol) (3) 1.25 mg Route: Inhalation; kd3 05/31 00:54 Follow up: Response: No adverse reaction kd3 05/30 20:16 Drug: AtroVENT (ipratropium) Aerosol 0.5 mg Route: Inhalation; kd3 05/31 00:54 Follow up: Response: No adverse reaction kd3 05/30 20:16 Drug: SOLU-Medrol (methylPrednisoLONE) 80 mg Route: IVP; Site: right antecubital; kd3 05/31 00:53 Follow up: Response: No adverse reaction kd3 05/30 21:53 Drug: NS 0.9% 500 ml Route: IV; Rate: 250 ml/hr; Site: right antecubital; kd3 05/31 00:53 Follow up: IV Status: Completed infusion; IV Intake: 500ml kd3 05/30 21:53 Drug: Pepcid (famotidine) 20 mg Route: IVP; Site: right antecubital; kd3 05/31 00:53 Follow up: Response: No adverse reaction kd3 05/30 21:53 Drug: Tamiflu (oseltamivir) 75 mg Route: PO; kd3 05/31 00:53 Follow up: Response: No adverse reaction kd3 05/30 23:07 Drug: Benadryl (diphenhydrAMINE) 25 mg Route: IVP; Site: right antecubital; kd3 05/31 00:53 Follow up: Response: No adverse reaction kd3 03:02 Drug: LevaQUIN (levofloxacin) 500 mg Volume: 100 ml; Route: IVPB; Infused Over: 60 kd3 mins; Site: right antecubital; Medication: 05/30 19:11 VIS not applicable for this client. vg1 Intake: 05/31 00:53 IV: 500ml; Total: 500ml. kd3 Outcome: 05/30 21:34 Decision to Hospitalize by Provider. cp 05/31 02:57 Admitted to ICU kd3 Condition: stable Discharge instructions given to patient, Instructed on the need for admit, Demonstrated understanding of instructions. 03:52 Patient left the ED. kd3 Signatures: Dispatcher [employer] EDMS Ashley Marcano RN RN bb Page, Corey, PA PA cp Garcia, Victoria, RN RN vg1 Mary Henriquez RN RN kd3 Corrections: (The following items were deleted from the chart) 05/30 19:11 18:46 Respiratory: Reports shortness of breath at rest on exertion Airway is patent vg1 Respiratory effort is even, labored, using tripod position, Onset: The symptoms/episode began/occurred this morning, the patient has moderate shortness of breath vg1
--- NOTE | 2022-05-30 21:34 | EDPHYS ---
Physician Documentation [facility] Name: Louise Raines Age: 71 yrs Sex: Female : 1950 Arrival Date: 05/30/2022 Time: 18:46 Bed 20 Private MD: ED Physician Malcolm Teran HPI: 05/30 19:08 This 71 yrs old Female presents to ER via EMS with complaints of Shortness Of Breath. cp 19:08 The patient has shortness of breath at rest. cp 19:08 Onset: The symptoms/episode began/occurred gradually, and became worse today. cp 19:08 Duration: The symptoms are continuous, and are steadily getting worse. Associated signs cp and symptoms: Pertinent positives: chest pain, Pertinent negatives: productive cough, diaphoresis, dizziness, fever. Severity of symptoms: in the emergency department the symptoms are unchanged despite EMS interventions. Patient with history of COPD. Has oxygen at home for home use. Continues to smoke. Shortness of breath worse today. Denies fever. Historical: - Allergies: 19:08 Adhesives; vg1 19:08 ambien; vg1 19:08 Baclofen; vg1 19:08 Iodinated Contrast Media - IV Dye; vg1 19:08 Iodine; vg1 - Home Meds: 05/31 00:52 aspirin 81 mg Oral cap 1 cap once daily [Active]; Lopid 600 mg Oral tab 1 tab 2 times kd3 per day [Active]; levothyroxine 75 mcg tab 1 tab once daily [Active]; duloxetine 60 mg Oral CDRS 1 cap once daily [Active]; metoprolol tartrate 50 mg Oral tab 1 tab 2 times per day [Active]; pantoprazole 40 mg Oral TbEC 1 tab 2 times per day [Active]; quetiapine 200 mg Oral tab 1 tab nightly [Active]; trazodone 50 mg Oral tab 3.5 tab nightly [Active]; ropinirole 0.5 mg Oral tab 1 tab 3 times per day [Active]; Trelegy Ellipta 100-62.5-25 mcg inhalation dsdv 1 puff once daily [Active]; Vitamin D3 25 mcg (1,000 unit) Oral cap daily [Active]; albuterol sulfate inhalation Inhl 2 puffs 4 times per day [Active]; amlodipine 5 mg tab 1 tab once daily [Active]; - PMHx: 05/30 19:08 Continuous home O2 \T\ 5L; COPD; Hypertension; Hypothyroidism; ulcerative colitis; vg1 - PSHx: 19:08 Cholecystectomy; colon and rectal sx; stent placed in left arm; Total abdominal vg1 hysterectomy; - Immunization history:: Client reports having NOT received the Covid vaccine. - Social history:: Smoking status: Patient reports the use of cigarette tobacco products, smokes one-half pack cigarettes per day. ROS: 05/31 19:10 Constitutional: Negative for body aches, chills, fever, poor PO intake. cp 19:10 Eyes: Negative for injury, pain, redness, and discharge. cp 19:10 ENT: Negative for drainage from ear(s), ear pain, sore throat, difficulty swallowing, difficulty handling secretions. 19:10 Cardiovascular: Positive for chest pain, Negative for edema, palpitations. 19:10 Respiratory: Positive for cough, with no reported sputum, shortness of breath, at rest. wheezing. 19:10 Abdomen/GI: Negative for abdominal pain, nausea, vomiting, and diarrhea. 19:10 Neuro: Negative for altered mental status, dizziness, headache, syncope, weakness. 19:10 All other systems are negative. Exam: 05/30 19:15 Constitutional: The patient appears alert, awake, non-diaphoretic, non-toxic, well cp developed, well nourished, in obvious distress, moderately distressed. 19:15 Head/Face: Normocephalic, atraumatic. cp 19:15 Eyes: Periorbital structures: appear normal, Conjunctiva: normal, no exudate, no injection, Sclera: no appreciated abnormality, Lids and lashes: appear normal, bilaterally. 19:15 ENT: External ear(s): are unremarkable, Ear canal(s): are normal, clear, TM's: bulging, is not appreciated, bilaterally, dullness, bilaterally, erythema, is not appreciated, bilaterally, Nose: is normal, Mouth: Lips: moist, Oral mucosa: moist, Posterior pharynx: Airway: no evidence of obstruction, patent, Tonsils: are normal in appearance, swelling, is not appreciated, erythema, is not appreciated, exudate, is not appreciated. 19:15 Neck: ROM/movement: is normal, is supple, without pain, no range of motions limitations, no meningismus. 19:15 Chest/axilla: Inspection: normal. 19:15 Cardiovascular: Rate: tachycardic, Rhythm: regular, Edema: is not appreciated, JVD: is not appreciated. 19:15 Respiratory: moderate respiratory distress is noted, Respirations: labored breathing, that is moderate, shallow respirations, that is moderate, Breath sounds: decreased breath sounds, that are moderate, stridor, is not appreciated, wheezing: that is mild, is heard diffusely. 19:15 Abdomen/GI: Inspection: abdomen appears normal, Bowel sounds: active, all quadrants, Palpation: abdomen is soft and non-tender, in all quadrants. 19:15 Skin: cellulitis, is not appreciated, no rash present. 19:15 Neuro: Orientation: to person, place \T\ time. Mentation: is normal, Motor: moves all fours, strength is normal, Sensation: is normal. 20:14 ECG was reviewed by the Attending Physician. cp Vital Signs: 18:46 BP 187 / 85; Pulse 123; Resp 24; Temp 97.7(O); Pulse Ox 90% on 4 lpm NC; Weight 40.37 vg1 kg; Height 5 ft. 0 in. (152.40 cm); 21:53 BP 171 / 63; Pulse 102; Resp 21; Pulse Ox 100% on 4 lpm NC; kd3 23:09 BP 158 / 58; Pulse 108; Resp 19; Pulse Ox 97% on 4 lpm NC; kd3 23:38 BP 185 / 73; Pulse 117; Resp 18; Pulse Ox 98% on 3.5 lpm NC; kd3 1207 00:54 BP 189 / 76; Pulse 116; Resp 19; Pulse Ox 97% on BiPAP; kd3 02:57 BP 156 / 69; Pulse 125; Resp 21; Pulse Ox 99% on BiPAP; kd3 03:12 Temp 98.2(O); kd3 05/30 18:46 Body Mass Index 17.38 (40.37 kg, 152.40 cm) vg1 MDM: 05/30 18:58 Patient medically screened. cp 20:00 Differential diagnosis: CHF exacerbation, Chronic Obstructive Pulmonary Disease cp Myocardial Infarction pneumonia, Pneumothorax pulmonary edema, Pulmonary Embolism Sepsis Unstable Angina. 21:30 Data reviewed: vital signs, nurses notes, lab test result(s), EKG, radiologic studies, cp plain films. 21:30 Test interpretation: by ED physician or midlevel provider: ECG, plain radiologic cp studies. Counseling: I had a detailed discussion with the patient and/or guardian regarding: the historical points, exam findings, and any diagnostic results supporting the discharge/admit diagnosis, lab results, radiology results, the need for further work-up and treatment in the hospital. 05/30 19:05 Order name: Basic Metabolic Panel; Complete Time: 20:34 cp 05/30 19:05 Order name: CBC with Diff; Complete Time: 20:34 cp 05/30 19:05 Order name: D-Dimer; Complete Time: 20:34 cp 05/30 19:05 Order name: LFT's; Complete Time: 20:34 cp 05/30 19:05 Order name: Magnesium; Complete Time: 20:34 cp 05/30 19:05 Order name: NT PRO-BNP; Complete Time: 20:34 cp 05/30 19:05 Order name: PT-INR; Complete Time: 20:34 cp 05/30 19:05 Order name: Troponin HS; Complete Time: 20:34 cp 05/30 19:05 Order name: COVID-19/FLU A+B/RSV; Complete Time: 20:44 cp 05/30 19:05 Order name: Lactate w/ 2H reflex if indic.; Complete Time: 20:34 cp 05/30 19:05 Order name: Blood Culture Adult (2) cp 05/30 19:05 Order name: Procalcitonin; Complete Time: 20:54 cp 05/30 19:06 Order name: Urine Microscopic Only cp 05/30 20:58 Order name: ABG; Complete Time: 02:16 cp 05/30 19:05 Order name: XRAY Chest (1 view); Complete Time: 20:34 cp 05/30 19:05 Order name: EKG; Complete Time: 19:07 cp 05/30 19:05 Order name: Cardiac monitoring; Complete Time: 19:46 cp 05/30 20:35 Order name: CT Chest For PE Angio cp 05/30 20:39 Order name: Chest For Pe Angio EDMS 05/30 20:44 Order name: BIPAP cp 05/31 02:48 Order name: ABG Arterial Blood Gas EDMS 05/31 03:40 Order name: Urine Dipstick-Ancillary EDMS 05/30 19:05 Order name: EKG - Nurse/Tech; Complete Time: 20:16 cp 05/30 19:05 Order name: IV Saline Lock; Complete Time: 19:46 cp 05/30 19:05 Order name: Labs collected and sent; Complete Time: 19:46 cp 05/30 19:05 Order name: O2 Per Protocol; Complete Time: 19:46 cp 05/30 19:05 Order name: O2 Sat Monitoring; Complete Time: 19:46 cp 05/30 19:06 Order name: Urine Dipstick-Ancillary (obtain specimen); Complete Time: 03:52 cp EC:14 Rate is 103 beats/min. Rhythm is regular. VT interval is normal. QRS interval is cp normal. QT interval is normal. Interpreted by me. Reviewed by me. Administered Medications: 20:16 Drug: Xopenex (levalbuterol) (3) 1.25 mg Route: Inhalation; 3 05/31 00:54 Follow up: Response: No adverse reaction 3 05/30 20:16 Drug: AtroVENT (ipratropium) Aerosol 0.5 mg Route: Inhalation; kd3 05/31 00:54 Follow up: Response: No adverse reaction 3 05/30 20:16 Drug: SOLU-Medrol (methylPrednisoLONE) 80 mg Route: IVP; Site: right antecubital; kd3 05/31 00:53 Follow up: Response: No adverse reaction 3 05/30 21:53 Drug: NS 0.9% 500 ml Route: IV; Rate: 250 ml/hr; Site: right antecubital; kd3 05/31 00:53 Follow up: IV Status: Completed infusion; IV Intake: 500ml kd3 05/30 21:53 Drug: Pepcid (famotidine) 20 mg Route: IVP; Site: right antecubital; kd3 05/31 00:53 Follow up: Response: No adverse reaction kd3 05/30 21:53 Drug: Tamiflu (oseltamivir) 75 mg Route: PO; kd3 05/31 00:53 Follow up: Response: No adverse reaction 3 05/30 23:07 Drug: Benadryl (diphenhydrAMINE) 25 mg Route: IVP; Site: right antecubital; kd3 05/31 00:53 Follow up: Response: No adverse reaction kd3 03:02 Drug: LevaQUIN (levofloxacin) 500 mg Volume: 100 ml; Route: IVPB; Infused Over: 60 kd3 mins; Site: right antecubital; Disposition Summary: 05/30/22 21:34 Hospitalization Ordered Hospitalization Status: Inpatient Admission cp Provider: Saran Mata cp Condition: Stable cp Problem: an acute exacerbation cp Symptoms: have improved cp Bed/Room Type: Standard cp Location: Intensive Care Unit(05/31/22 02:31) Room Assignment: 6-(05/31/22 02:31) mw Diagnosis - COPD/ Chronic obstructive pulmonary disease with acute lower respiratory infection cp - Influenza due to identified novel influenza A virus with other respiratory cp manifestations - Acute and chronic respiratory failure with hypoxia cp Forms: - Medication Reconciliation Form cp - SBAR form cp Addendum: 06/11/2022 14:58 Co-signature as Attending Physician, Malcolm Teran MD I agree with the assessment and c biggs plan of care. Signatures: Dispatcher [employer] EDNkechi Quintanilla RN RN mw Anderson, Corey, MD MD cha Attema, Lee, BANKING MANAGER-C BANKING MANAGER-Cla1 Malcolm Dobson PA PA Lauren Hodges, RN RN vg1 Mary Henriquez RN RN kd3 Corrections: (The following items were deleted from the chart) 05/30 22:28 21:34 cp 05/31 02:31 12 21:34 Telemetry/MedSurg (Inpatient) [facility] 05/31 02:31 05/30 22:28 207 [facility] 06/01 00:07 05/29 19:08 This 71 yrs old Female presents to ER via EMS with complaints of Shortness cp Of Breath. cp 06/01 00:07 05/29 19:08 The patient has shortness of breath at rest, cp cp
[2022-05-30] MEDS ORDERED: OSELTAMIVIR 75 MG CAP PO ONE (21:44)
[2022-05-30] MEDS ORDERED: FAMOTIDINE 20 MG/2 ML VIAL IV ONE (21:44)
[2022-05-30] MEDS ORDERED: NA CHLORIDE 0.9% 500 ML ONE (21:44)
[2022-05-30] MEDS ORDERED: DIPHENHYDRAMINE 50 MG/ML VIAL ONE (21:44)
--- NOTE | 2022-05-30 22:56 | P.HP ---
Certification for Inpatient Patient admitted to: Inpatient With expected LOS: >2 Midnights Patient will require the following post-hospital care: None Practitioner: I am a practitioner with admitting privileges, knowledge of patient current condition, hospital course, and medical plan of care. Services: Services provided to patient in accordance with Admission requirements found in Title 42 Section 412.3 of the Code of Federal Regulations <Yoel Herndon - Last Filed: 05/30/22 22:50> Patient History Date of Service: 05/30/22 Reason for admission: Respiratory failure, influenza History of Present Illness: 71-year-old female with history of COPD on home O2/chronic steroids, hypertension, hypothyroidism, ulcerative colitis presents the emergency department for shortness of breath. Patient reports feeling increasing shortness of breath over the course last 24 to 48 hours. She typically uses home oxygen 2.5 L has had to increase it to 4 L. She also was previously on prednisone chronically but ran out about 2 weeks ago was unsure of the dose she was on previously. She was evaluated in the emergency department labs were significant for hemoglobin 10.5 hematocrit 34.1 D-dimer 2417 GFR was 48 BNP 624 influenza A was positive chest x-ray shows no acute abnormalities. CT PE protocol pending, had previous CTA 04/05/2022 which was negative for pulmonary embolism. ABG also ordered and pending. ED provider wishes to admit for acute on chronic hypoxic respiratory failure secondary to influenza A. - Past Medical/Surgical History Diabetic: No -: COPD, oxygen-dependent -: Hypertension -: History of ulcerative colitis -: Arthritis -: GERD -: Hypothyroidism -: Depression with anxiety -: Restless leg syndrome -: History CVA -: Chronic renal disease -: Tobacco abuse -: ABF leg aortic replacement -: Cholecystectomy -: Hysterectomy -: Stent -: Colorectal surgery -: Had a stent placed in the left arm Psychosocial/ Personal History: The patient lives with her sister. She is a . She has 1 child. - Family History Mother -: Hypertension Father Notes: committed suicide - Social History Smoking Status: Current every day smoker Alcohol use: No CD- Drugs: No Caffeine use: Yes Place of Residence: Home <Yoel Herndon - Last Filed: 05/30/22 22:50> Date of Service: 05/31/22 <Saran Mata - Last Filed: 05/31/22 17:18> Allergies Iodine and Iodide Containing Produc Allergy (Unknown, Verified 10/30/17 22:35) Hives/Rash adhesive tape Allergy (Verified 10/30/17 22:35) Itching Iodinated Contrast Media Allergy (Verified 12/13/17 23:45) Anaphylaxis zolpidem [From Ambien] Allergy (Verified 10/30/17 22:35) Anaphylaxis Adhesives Allergy (Uncoded 12/13/17 20:04) Unknown Home Medications: Amlodipine [Norvasc*] 5 mg PO DAILY 06/07/18 Aspirin 81 mg PO DAILY 06/07/18 Cholecalciferol (Vitamin D3) [Vitamin D3] 1,000 unit PO DAILY 06/07/18 Levothyroxine Sodium 50 mcg PO DAILY 06/07/18 Metoprolol Tartrate 50 mg PO BID 06/07/18 Ropinirole HCl 0.5 mg PO TID 06/07/18 gemfibroziL [Lopid*] 600 mg PO BID 06/07/18 Albuterol Inhaler [Ventolin Inhaler*] 2 puff IH QIDP PRN 12/17/20 Albuterol Neb [Proventil 0.083% Neb Soln] 2.5 mg IH [id number] PRN #120 amp 04/01/22 Nebulizer 1 each MC TID #1 unit 04/01/22 Sucralfate [Carafate*] 1 gm PO ACHS #30 tab 04/01/22 predniSONE [Deltasone*] 10 mg PO DAILY #30 tab 04/01/22 Pantoprazole [Protonix Tab*] 40 mg PO DAILY 05/31/22 Review of Systems 10-point ROS is otherwise unremarkable General: Weakness, Malaise Respiratory: Cough, Shortness of Breath, Wheezing <Yoel Herndon - Last Filed: 05/30/22 22:50> Physical Examination - Physical Exam General: Alert, In no apparent distress, Oriented x3 HEENT: Atraumatic, PERRLA, Mucous membr. moist/pink, EOMI, Sclerae nonicteric Neck: Supple, 2+ carotid pulse no bruit, No LAD, Without JVD or thyroid abnormality Respiratory: Diminished, Expiratory wheezes Cardiovascular: Regular rate/rhythm, Normal S1 S2 Gastrointestinal: Normal bowel sounds, No tenderness Musculoskeletal: No tenderness Integumentary: No rashes Neurological: Normal speech, Normal strength at 5/5 x4 extr, Normal tone, Normal affect Lymphatics: No axilla or inguinal lymphadenopathy - Studies Laboratory Data (last 24 hrs) 05/30/22 19:30: PT 11.2, INR 1.02 05/30/22 19:30: WBC 6.00, Hgb 10.5 L, Hct 34.1 L, Plt Count 179 05/30/22 19:30: Sodium 141, Potassium 3.7, BUN 13, Creatinine 1.20, Glucose 107 H, Magnesium 2.1, Total Bilirubin 0.3, AST 17, ALT 14, Alkaline Phosphatase 74 <Yoel Herndon - Last Filed: 05/30/22 22:50> - Studies Laboratory Data (last 24 hrs) 05/30/22 19:30: PT 11.2, INR 1.02 05/30/22 19:30: WBC 6.00, Hgb 10.5 L, Hct 34.1 L, Plt Count 179 05/30/22 19:30: Sodium 141, Potassium 3.7, BUN 13, Creatinine 1.20, Glucose 107 H, Magnesium 2.1, Total Bilirubin 0.3, AST 17, ALT 14, Alkaline Phosphatase 74 <Saran Mata - Last Filed: 05/31/22 17:18> Assessment and Plan - Plan Assessment: Acute on chronic hypoxic respiratory failure secondary to COPD with exacerbation Sepsis secondary to influenza Aviral Elevated D-dimer Hypertension Hypothyroidism Ulcerative colitis Plan: Acute on chronic hypoxic respiratory failure secondary to COPD with exacerbation: Pulmonology consulted, continue with steroids, ICS, supplemental oxygen. Will obtain sputum culture, as needed nebulizer treatments ordered. Patient much improved from presentation. Patient has been without her chronic steroidsprednisone unknown dose for the last 2 weeks as she has not been able to see her cane pusher Dr. Del Rio. Will need prescription at discharge. Sepsis secondary to influenza Aviral: SIRS criteria present including tachycardia, tachypnea. Source infection identified positive for influenza A. Started on Tamiflu. Elevated D-dimer: Patient pending CT PE protocol, difficulty obtaining appropriate IV access. Will attempt ultrasound-guided IV for CT. Patient had CT PE protocol about 2 months ago which was negative for pulmonary embolism although D-dimer is significantly elevated currently. Hypertension: Continue home medications Hypothyroidism:Continue home medications Ulcerative colitis: Continue home medications DVT PPX: Lovenox Code status: Full Discharge Plan: Home Plan to discharge in: 72 Hours - Advance Directives Does patient have a Living Will: No Does patient have a Durable POA for Healthcare: No - Code Status/Comfort Care Code Status Assessed: Yes (Full code) Critical Care: No Time Spent Managing Pts Care (In Minutes): 70 <Yoel Herndon - Last Filed: 05/30/22 22:50> Physician Review: Patient Assessed, Agree with Above Assessment and Plan <Saran Mata - Last Filed: 05/31/22 17:18>
[2022-05-30 23:27] LABS: Arterial Blood Carboxyhemoglob 0.6 % (0-1.5); Blood Gas Oxyhemoglobin 25.1 % (94-97); Blood O2 Saturation 25.7 % (92-98.5)
[2022-05-31 02:45] LABS: Arterial Blood Carboxyhemoglob 0.8 % (0-1.5); Blood Gas Oxyhemoglobin 37.8 % (94-97); Blood O2 Saturation 38.8 % (92-98.5)
[2022-05-31] MEDS ORDERED: IPRATROPIUM BROM 0.5MG/2.5ML NEB PRN (02:45)
[2022-05-31] MEDS ORDERED: ALBUTEROL 2.5 MG/3 ML NEB SOL NEB PRN (02:45)
[2022-05-31] MEDS ORDERED: ACETAMINOPHEN 500 MG TAB PO PRN (02:45)
[2022-05-31] MEDS ORDERED: Levofloxacin500mg IV 500 MG/100 ML BAG IV ONE (02:56)
[2022-05-31] MEDS ORDERED: IPRATROPIUM BROM 0.5MG/2.5ML ONE (02:58)
[2022-05-31] MEDS ORDERED: KETOROLAC 30 MG/ML INJ IV ONE (03:07)
[2022-05-31] MEDS ORDERED: KETOROLAC 30 MG/ML INJ ONE (03:16)
[2022-05-31 03:39] LABS: Urine Blood Trace-intact (Negative); Urine Glucose Negative (Negative); Urine Protein 1+ (Negative); Urine Specific Gravity 1.015 (1.005-1.030)
[2022-05-31 04:37] LABS: Urine Mucus Slight /HPF (None Seen); Urine RBC <5 /HPF (None Seen)
[2022-05-31 05:52] LABS: Magnesium 2.1 mg/dL (1.8-2.4); Potassium 3.3 mmol/L (3.5-5.1)
[2022-05-31 05:54] LABS: Absolute Lymphocytes (CBC) 0.3 K/uL (0.7-4.9); Hematocrit 28.7 % (36.0-45.0); Lymphocytes % 6.3 % (15.3-44.8); MCV 82.9 fL (80-100); MPV 9.4 fL (7.6-11.3); RBC Red Blood Cell Count 3.46 M/uL (3.86-4.86)
[2022-05-31] MEDS: MORPHINE 2 MG/ML SYR IV PRN ×3 (06:42→21:10)
[2022-05-31 07:18] LABS: Blood Morphology Comment NOTED (NOT SEEN); Platelet Estimate ADEQ
[2022-05-31 07:19] LABS: Basophilic Stippling 1+
[2022-05-31] MEDS ORDERED: BUDESONIDE 0.5 MG/2 ML NEB NEB SCH (08:00)
[2022-05-31] MEDS: OSELTAMIVIR 30 MG CAP PO SCH ×2 (08:40→20:50)
[2022-05-31] MEDS ORDERED: Levofloxacin 750mg IV 750 MG/150 ML BAG IV SCH (09:00)
[2022-05-31] MEDS ORDERED: METHYLPREDNISOLONE 40 MG INJ IV SCH (09:00)
[2022-05-31 11:24] LABS: Arterial Blood Carboxyhemoglob 0.9 % (0-1.5); Blood Gas Oxyhemoglobin 33.9 % (94-97)
--- NOTE | 2022-05-31 12:04 | P.CNS ---
Date of Consult: 05/31/22 Reason for Consult: Respiratory failure Chief Complaint: Respiratory failure, influenza History of Present Illness: Patient is 71 years of age with a history of COPD on home oxygen steroids presented to the emergency department he became acutely worse hypoxic hypercapnic he uses 2-1/2 L of nasal cannula oxygen ran out of prednisone currently stable off BiPAP Positive for influenza A Allergies Iodine and Iodide Containing Produc Allergy (Unknown, Verified 10/30/17 22:35) Hives/Rash adhesive tape Allergy (Verified 10/30/17 22:35) Itching Iodinated Contrast Media Allergy (Verified 12/13/17 23:45) Anaphylaxis zolpidem [From Ambien] Allergy (Verified 10/30/17 22:35) Anaphylaxis Adhesives Allergy (Uncoded 12/13/17 20:04) Unknown Home Medications: Amlodipine [Norvasc*] 5 mg PO DAILY 06/07/18 Aspirin 81 mg PO DAILY 06/07/18 Cholecalciferol (Vitamin D3) [Vitamin D3] 1,000 unit PO DAILY 06/07/18 Duloxetine HCl 60 mg PO DAILY 06/07/18 Levothyroxine Sodium 75 mcg PO DAILY 06/07/18 Metoprolol Tartrate 50 mg PO BID 06/07/18 Quetiapine Fumarate [Seroquel] 200 mg PO BEDTIME 06/07/18 Ropinirole HCl 0.5 mg PO TID 06/07/18 Trazodone HCl 175 mg PO BEDTIME 06/07/18 gemfibroziL [Lopid*] 600 mg PO BID 06/07/18 Albuterol Inhaler [Ventolin Inhaler*] 2 puff IH QIDP PRN 12/17/20 Fluticasone/Umeclidin/Vilanter [Trelegy Ellipta 100-62.5-25] 1 each IH DAILY 12/17/20 Pantoprazole [Protonix Tab*] 40 mg PO BID #60 tab 12/18/20 Albuterol Neb [Proventil 0.083% Neb Soln] 2.5 mg IH [id number] PRN #120 amp 04/01/22 Nebulizer 1 each MC TID #1 unit 04/01/22 Sucralfate [Carafate*] 1 gm PO ACHS #30 tab 04/01/22 predniSONE [Deltasone*] 10 mg PO DAILY #30 tab 04/01/22 - Past Medical/Surgical History Diabetic: No -: COPD, oxygen-dependent -: Hypertension -: History of ulcerative colitis -: Arthritis -: GERD -: Hypothyroidism -: Depression with anxiety -: Restless leg syndrome -: History CVA -: Chronic renal disease -: Tobacco abuse -: ABF leg aortic replacement -: Cholecystectomy -: Hysterectomy -: Stent -: Colorectal surgery -: Had a stent placed in the left arm Psychosocial/ Personal History: The patient lives with her sister. She is a . She has 1 child. - Family History Mother Medical History: Hypertension Father Notes: committed suicide - Social History Smoking Status: Current some day smoker Alcohol use: No CD- Drugs: No Caffeine use: Yes Place of Residence: Home Review of Systems 10-point ROS is otherwise unremarkable General: Weakness Respiratory: Cough, Shortness of Breath Physical Examination Temp Pulse Resp BP Pulse Ox 96.6 F L 128 H 23 H 158/71 H 97 05/31/22 08:00 05/31/22 08:00 05/31/22 08:00 05/31/22 08:00 05/31/22 08:00 General: Alert, In no apparent distress, Mild distress Respiratory: Diminished, Expiratory wheezes Cardiovascular: No edema, Regular rate/rhythm, Normal S1 S2 Laboratory Data (last 24 hrs) 05/30/22 19:30: PT 11.2, INR 1.02 05/30/22 19:30: WBC 6.00, Hgb 10.5 L, Hct 34.1 L, Plt Count 179 05/30/22 19:30: Sodium 141, Potassium 3.7, BUN 13, Creatinine 1.20, Glucose 107 H, Magnesium 2.1, Total Bilirubin 0.3, AST 17, ALT 14, Alkaline Phosphatase 74 - Problems (1) Acute on chronic respiratory failure with hypoxia and hypercapnia Current Visit: No Status: Acute Plan: Patient is 71 years of age been doing well acutely got worse in her upper pr ednisone patient's blood pressure is elevated hypoxic hypercarbic CT scan showed right middle lobe bronchiectasis suggestive of an atypical Mycobacterium infection otherwise COPD changes chronic interstitial changes plan to titrate sat to 90% once stable may qualify for a noninvasive ventilator no evidence of thromboembolism changed to p.o. prednisone p.o. sputum culture and gram stain AFB culture to rule out atypical Mycobacterium infection
--- NOTE | 2022-05-31 13:32 | RAD REPORT ---
EXAM DESCRIPTION: CT - Chest For Pe Angio - 05/31/2022 7:16 am CLINICAL HISTORY: 71 years, Female, shortness of breath COMPARISON: 04/05/2022 TECHNIQUE: Multiple transaxial tomograms of the chest were obtained from the lung apices through the lung bases utilizing 2 mm slice thickness at 2 mm interval reconstruction after the administration o f large bolus of IV contrast for complete opacification of the pulmonary arteries. Subsequent 3-D maximum intensity projection images were generated in the coronal and sagittal plane f or review. This exam was performed according to our departmental dose-optimization protocol, which includes auto mated exposure control, adjustment of the mA and/or kV according to patient size and/or use of iterat reynaldo reconstruction technique. FINDINGS: The lungs parenchyma demonstrate minimal bilateral apical pleural thickening. Minimal cent rilobular edematous changes upper lobes. Minimal bronchial thickening with the minimal interlobular s eptal thickening suggesting interstitial lung disease. There is bronchiectasis involving the right mi ddle lobe and inferior aspect inferior linear segment. Minimal tree-in-bud nodularities subpleural as pect suggest infection/or inflammation. No masses, nodules and/or consolidations are identified. The trachea mainstem bronchus demonstrate to be normal. There is no significant pericardial or pleura l effusions. The thoracic aorta demonstrate intimal aortic arch calcification. No evidence for aneurysm/or dissect ion. Findings suggest a stenting of the proximal/origin left subclavian artery with significant calib er narrowing along the proximal aspect on axial image [id number]. The heart is normal in size. No eviden ce for right ventricular strain. There are coronary artery calcifications. The distal portion of the thoracic aorta/thoracoabdominal junction proximal aspect of the abdominal a keith demonstrate a aneurysmatic dilatation measuring 3.2 x 3.3 cm on axial image 18. There are calcified granulomas within the mediastinum There is no significant mediastinal and/or ankush r lymphadenopathy. The axillary regions demonstrate to be clear. Pulmonary arteries demonstrate to be normal, no intraluminal defect are seen that would suggest pulmo nary embolus. The bone windows demonstrate mild diffuse bony osteopenia. There is small superior plate compression deformity at T5. The visualized portions of the upper abdomen demonstrate to be unremarkable. IMPRESSION: No CT evidence for pulmonary embolus. Minimal bilateral apical pleural thickening with minimal bronchial thickening with the minimal interl obular septal thickening suggesting interstitial lung disease. Bronchiectasis involving the right middle lobe and inferior aspect of the inferior linear segment. Minimal tree-in-bud nodularities subpleural aspect suggest infection and/or inflammation. Findings suggest a stenting of the proximal/origin left subclavian artery with significant caliber na rrowing along the proximal aspect/distal to the stent. 3.2 x 3.3 cm distal portion of the thoracic aorta/thoracoabdominal junction proximal aspect of the ab dominal aorta. Recommend follow-up every 3 years. Reference: J Am Dylan Radiol 2013;10 (10):789-794 Small superior plate compression deformity at T5. Electronically signed by: Neri Thao MD 05/31/2022 12:11 AM [employer] ARCHITECT Due to temporary technical issues with the PACS/Fluency reporting system, reports are being signed by the in house radiologists without review as a courtesy to insure prompt reporting. The interpreting radiologist is fully responsible for the content of the report.
[2022-05-31] MEDS: AMLODIPINE 5 MG TAB PO SCH (14:42)
[2022-05-31] MEDS: ROPINIROLE HCL 0.25 MG TAB PO SCH ×2 (14:42→20:51)
--- NOTE | 2022-05-31 17:08 | P.PN ---
Subjective Date of Service: 05/31/22 Chief Complaint: Respiratory failure, influenza No acute events since admission. She reports persistent shortness of breath. She denies any obvious inciting or alleviating factors. Review of Systems 10-point ROS is otherwise unremarkable Respiratory: Cough, Dry, Shortness of Breath, SOB with Excertion Physical Examination - Vital Signs Temperature: 96 F Blood Pressure: 172/68 Pulse: 110 Respirations: 19 Pulse Ox (%): 97 - Physical Exam General: Alert, In no apparent distress, Oriented x3 HEENT: Atraumatic, Mucous membr. moist/pink, EOMI, Sclerae nonicteric Neck: JVD not distended Respiratory: Diminished, Expiratory wheezes, Inspiratory wheezes, Rhonchi/gurgles Cardiovascular: No edema, Regular rate/rhythm, Normal S1 S2, No gallops, No rubs, No murmurs Gastrointestinal: Normal bowel sounds, Soft and benign, Non-distended, No tenderness, No rebound, No guarding Musculoskeletal: No clubbing Integumentary: No rashes Neurological: Normal speech, Cranial nerves 3-12 intact, Normal affect - Studies Laboratory Data (last 24 hrs) 05/30/22 19:30: PT 11.2, INR 1.02 05/30/22 19:30: WBC 6.00, Hgb 10.5 L, Hct 34.1 L, Plt Count 179 05/30/22 19:30: Sodium 141, Potassium 3.7, BUN 13, Creatinine 1.20, Glucose 107 H, Magnesium 2.1, Total Bilirubin 0.3, AST 17, ALT 14, Alkaline Phosphatase 74 Assessment And Plan - Plan # Acute Hypercapnic, Hypoxemic Respiratory Failure - likely secondary to Chronic Obstructive Pulmonary Disease Exacerbation due to Influenza A Infection # Bronchiectasis # Suspect Interstitial Lung Disease - Evaluation thus far: - D-Dimer = 2417 - Procalcitonin = <0.05 - Respiratory Pathogen panel = Influenza A - Initial ABG = pH 7.08, PCO2 101.0, PO2 23.1 - Chest x-ray = "no acute abnormalities displayed" - CT chest angiogram = "no CT evidence for pulmonary embolus. Minimal bilateral apical pleural thickening with minimal bronchial thickening with the minimal interlobular septal thickening suggesting interstitial lung disease. Bronchiectasis involving the right middle lobe and inferior aspect of the inferior linear segment. Minimal tree-in-bud nodularities subpleural aspect suggest infection and/or inflammation." - Management plan: - Consulted Pulmonary Medicine and evaluated by Dr. Del Rio - recommendations appreciated - Bronchodilators + steroids per Pulm - Consulted Respiratory Therapy - Supplemental oxygen to maintain SpO2 > 92% - Started levofloxacin + oseltamivir - Encouraged incentive spirometry # Severe Viral Sepsis secondary to Influenza A Infection She met sepsis criteria based on HR > 90 bpm, RR > 20 breaths/min, and the suspected source is influenza A. Severe sepsis is suspected due to concern for tissue hypoperfusion/organ dysfunction based on acute respiratory failure requiring BiPAP. - Sepsis order set was initiated - Initial Lactate was 0.8 - Blood cultures drawn - Broad spectrum antimicrobials started: Levofloxacin + Oseltamivir - In regards to fluids: - 30 mL/kg of IV fluids was not administered given SBP > 90, MAP > 65, lactic acid < 4 # Hypertension - Continue home amlodipine, metoprolol # Hypothyroidism - Continue home levothyroxine # Ulcerative Colitis - Currently on prednisone for COPD # Abdominal Aortic Aneurysm (3.2 cm x 3.3 cm) # Left Subclavian Artery Stenting? - Noted on CT scan - Discussed with Ms. Raines, and explained Radiology recommendations to repeat scan in 3 years - She verbalized understanding and agreed to schedule this follow-up through her PCP Saran Mata M.D.
[2022-05-31] MEDS: ENSURE ENLIVE 237 ML CAN PO SCH (20:50)
[2022-05-31] MEDS: METOPROLOL TAR 50 MG TAB PO SCH (20:50)
[2022-05-31] MEDS: predniSONE 20 MG TAB PO SCH (20:50)
[2022-05-31] MEDS ORDERED: QUETIAPINE 100MG TAB PO SCH (21:00)
[2022-05-31] MEDS ORDERED: HOME MED 1 EA UNK (Trazodone Hcl [Trazodone Hcl] 100 MG Tablet) PO SCH (21:00)
[2022-06-01 05:20] LABS: Blood Gas Oxyhemoglobin 55.4 % (94-97); Blood O2 Saturation 57.1 % (92-98.5)
[2022-06-01 05:27] LABS: Absolute Lymphocytes (CBC) 0.5 K/uL (0.7-4.9); Hematocrit 28.1 % (36.0-45.0); Lymphocytes % 11.8 % (15.3-44.8); MCV 81.6 fL (80-100); RBC Red Blood Cell Count 3.44 M/uL (3.86-4.86)
--- NOTE | 2022-06-01 05:45 | EKG ---
Test Date: 2022-05-31 Test Time: 10:28:33 Dynamometer Repairer: JAMA MEASUREMENT RESULTS: Intervals: Rate: 128 [place]: 140 QRSD: 62 QT: 314 QTc: 458 [place]: P: 80 [place]: 140 QRS: 66 T: 136 INTERPRETIVE STATEMENTS: Sinus tachycardia Biatrial enlargement Marked ST abnormality, possible inferior subendocardial injury Abnormal ECG Compared to ECG 05/30/2022 20:08:12 No significant changes Electronically Signed On 06-01-22 05:44:37 CONTRACT DRIVER by Bryan Chowdhury
--- NOTE | 2022-06-01 05:46 | EKG ---
Test Date: 2022-05-30 Test Time: 20:08:12 Fur Blower Operator: KIMBERLEY MEASUREMENT RESULTS: Intervals: Rate: 103 [place]: 122 QRSD: 68 QT: 356 QTc: 466 [place]: P: 77 [place]: 122 QRS: 69 T: 92 INTERPRETIVE STATEMENTS: Sinus tachycardia Right atrial enlargement Nonspecific ST abnormality Abnormal ECG Compared to ECG 04/05/2022 13:48:16 ST (T wave) deviation now present Short [place] interval no longer present Left ventricular hypertrophy no longer present Early repolarization no longer present Electronically Signed On 06-01-22 05:44:48 FIBRE OPTIC CABLE SPLICER by Bryan Chowdhury
[2022-06-01 05:49] LABS: Magnesium 2.4 mg/dL (1.8-2.4)
[2022-06-01] MEDS: MORPHINE 2 MG/ML SYR IV PRN ×3 (05:55→20:40)
[2022-06-01] MEDS: predniSONE 20 MG TAB PO SCH ×2 (08:46→20:34)
[2022-06-01] MEDS: ASPIRIN 81 MG CHEWABLE TABLET PO SCH (08:46)
[2022-06-01] MEDS: AMLODIPINE 5 MG TAB PO SCH (08:47)
[2022-06-01] MEDS: ENOXAPARIN 40 MG/0.4 ML SQ SCH (08:52)
[2022-06-01] MEDS: METOPROLOL TAR 50 MG TAB PO SCH ×2 (08:53→20:34)
[2022-06-01] MEDS: LEVOTHYROXINE SOD 0.05 MG TABLET PO SCH (08:53)
[2022-06-01] MEDS: OSELTAMIVIR 30 MG CAP PO SCH ×2 (08:53→20:34)
[2022-06-01] MEDS: ROPINIROLE HCL 0.25 MG TAB PO SCH ×3 (08:54→20:34)
[2022-06-01] MEDS ORDERED: levoFLOXacin 500 MG TAB PO SCH (09:00)
[2022-06-01] MEDS ORDERED: DULOXETINE 30 MG CAP PO SCH (09:00)
[2022-06-01] MEDS: ENSURE ENLIVE 237 ML CAN PO SCH ×2 (09:02→20:35)
[2022-06-01] MEDS: ONDANSETRON 4 MG/2 ML VIAL IV PRN ×2 (09:50→14:56)
[2022-06-01 10:14] LABS: Blood Gas Oxyhemoglobin 86.3 % (94-97); Blood O2 Saturation 89.2 % (92-98.5)
[2022-06-01 10:15] LABS: Arterial Blood Carboxyhemoglob 1.2 % (0-1.5)
--- NOTE | 2022-06-01 13:30 | P.PN ---
Subjective Date of Service: 06/01/22 Chief Complaint: Respiratory failure, influenza Subjective: Improving (Patient is improving tolerating BiPAP no new complaint) Review of Systems General: Weakness Respiratory: Shortness of Breath Physical Examination - Vital Signs Temperature: 98.1 F Blood Pressure: 121/53 Pulse: 85 Respirations: 22 Pulse Ox (%): 97 - Physical Exam General: Alert, Oriented x3, Mild distress Respiratory: Clear to auscultation bilaterally, Diminished Cardiovascular: No edema, Regular rate/rhythm, Normal S1 S2 Assessment And Plan - Current Problems (Diagnosis) (1) Chronic respiratory failure with hypoxia and hypercapnia Current Visit: Yes Status: Acute Plan: Patient has chronic respiratory failure with hypoxemia chronic hypercapnia due to terminal COPD benefit from a noninvasive ventilation to prevent readmissions for COPD exacerbation BiPAP not suitable labs reviewed mildly anemic continue to use BiPAP as needed for now changed to scheduled albuterol and ipratropium vital signs stable oxygenation satisfactory Physician Review: Patient Assessed, Agree with Above Assessment and Plan
[2022-06-01] MEDS: ALBUTEROL 2.5 MG/3 ML NEB SOL NEB SCH ×2 (14:24→20:10)
[2022-06-01] MEDS: IPRATROPIUM BROM 0.5MG/2.5ML NEB SCH ×2 (14:24→20:10)
--- NOTE | 2022-06-01 19:48 | P.PN ---
Subjective Date of Service: 06/01/22 Chief Complaint: Respiratory failure, influenza No acute events overnight. Her shortness of breath is gradually improving. She has been on/off BiPAP. She denies any cough or chest pain. Review of Systems 10-point ROS is otherwise unremarkable Respiratory: Shortness of Breath, SOB with Excertion, Wheezing Physical Examination - Vital Signs Temperature: 98.1 F Blood Pressure: 128/46 Pulse: 75 Respirations: 17 Pulse Ox (%): 97 Assessment And Plan - Plan - Physical Exam General: Alert, In no apparent distress, Oriented x3 HEENT: Atraumatic, Mucous membr. moist/pink, EOMI, Sclerae nonicteric Neck: JVD not distended Respiratory: Diminished, Faint expiratory wheezes, Rhonchi/gurgles Cardiovascular: No edema, Regular rate/rhythm, Normal S1 S2, No gallops, No rubs, No murmurs Gastrointestinal: Normal bowel sounds, Soft and benign, Non-distended, No tenderness, No rebound, No guarding Musculoskeletal: No clubbing Integumentary: No rashes Neurological: Normal speech, Cranial nerves 3-12 intact, Normal affect # Acute Hypercapnic, Hypoxemic Respiratory Failure - likely secondary to Chronic Obstructive Pulmonary Disease Exacerbation due to Influenza A Infection # Bronchiectasis # Suspect Interstitial Lung Disease - Evaluation thus far: - D-Dimer = 2417 - Procalcitonin = <0.05 - Respiratory Pathogen panel = Influenza A - Initial ABG = pH 7.08, PCO2 101.0, PO2 23.1 - Chest x-ray = "no acute abnormalities displayed" - CT chest angiogram = "no CT evidence for pulmonary embolus. Minimal bilateral apical pleural thickening with minimal bronchial thickening with the minimal interlobular septal thickening suggesting interstitial lung disease. Bronchiectasis involving the right middle lobe and inferior aspect of the i nferior linear segment. Minimal tree-in-bud nodularities subpleural aspect suggest infection and/or inflammation." - Management plan: - Consulted Pulmonary Medicine and evaluated by Dr. Del Rio - re commendations appreciated - Bronchodilators + steroids per Pulm - Consulted Respiratory Therapy - Supplemental oxygen to maintain SpO2 > 92% - Started levofloxacin + oseltamivir - Encouraged incentive spirometry # Severe Viral Sepsis secondary to Influenza A Infection She met sepsis criteria based on HR > 90 bpm, RR > 20 breaths/min, and the suspected source is influenza A. Severe sepsis is suspected due to concern for tissue hypoperfusion/organ dysfunction based on acute respiratory failure requiring BiPAP. - Sepsis order set was initiated - Initial Lactate was 0.8 - Blood cultures drawn - Broad spectrum antimicrobials started: Levofloxacin + Oseltamivir - In regards to fluids: - 30 mL/kg of IV fluids was not administered given SBP > 90, MAP > 65, lactic acid < 4 # Hypertension - Continue home amlodipine, metoprolol # Hypothyroidism - Continue home levothyroxine # Ulcerative Colitis - Currently on prednisone for COPD # Abdominal Aortic Aneurysm (3.2 cm x 3.3 cm) # Left Subclavian Artery Stenting? - Noted on CT scan - Discussed with Ms. Raines, and explained Radiology recommendations to repeat scan in 3 years - She verbalized understanding and agreed to schedule this follow-up through her PCP At Ms. Raines's request, I have updated her daughter, Ms. Johanna Chavez. Saran Mata M.D.
[2022-06-01] MEDS ORDERED: propofoL 1,000 MG/100 ML VIAL IV SCH (23:00)
[2022-06-01] MEDS: HYDROCODONE/APAP 5/325 MG TAB PO PRN (23:59)
[2022-06-02] MEDS: IPRATROPIUM BROM 0.5MG/2.5ML NEB SCH ×4 (01:15→20:18)
[2022-06-02] MEDS: ALBUTEROL 2.5 MG/3 ML NEB SOL NEB SCH ×4 (01:15→20:18)
[2022-06-02] MEDS: MORPHINE 2 MG/ML SYR IV PRN ×3 (02:48→21:00)
[2022-06-02] MEDS ORDERED: ALPRAZOLAM 0.25 MG TABLET PO ONE (03:23)
[2022-06-02 05:34] LABS: Absolute Lymphocytes (CBC) 0.9 K/uL (0.7-4.9); Hematocrit 27.4 % (36.0-45.0); Lymphocytes % 22.3 % (15.3-44.8); MPV 9.1 fL (7.6-11.3)
[2022-06-02 05:56] LABS: Magnesium 2.3 mg/dL (1.6-2.4); Potassium 3.5 mmol/L (3.5-5.1)
[2022-06-02] MEDS ORDERED: levoFLOXacin 250 MG TAB PO SCH (09:00)
[2022-06-02] MEDS: AMLODIPINE 5 MG TAB PO SCH (09:19)
[2022-06-02] MEDS: METOPROLOL TAR 50 MG TAB PO SCH ×2 (09:20→21:00)
[2022-06-02] MEDS: ASPIRIN 81 MG CHEWABLE TABLET PO SCH (09:20)
[2022-06-02] MEDS: LEVOTHYROXINE SOD 0.05 MG TABLET PO SCH (09:21)
[2022-06-02] MEDS: ENOXAPARIN 40 MG/0.4 ML SQ SCH (09:21)
[2022-06-02] MEDS: ENSURE ENLIVE 237 ML CAN PO SCH ×2 (09:21→21:00)
[2022-06-02] MEDS: predniSONE 20 MG TAB PO SCH ×2 (09:21→21:00)
[2022-06-02] MEDS: OSELTAMIVIR 30 MG CAP PO SCH ×2 (09:22→21:00)
[2022-06-02] MEDS: ROPINIROLE HCL 0.25 MG TAB PO SCH ×3 (09:22→21:01)
--- NOTE | 2022-06-02 13:19 | P.PN ---
Subjective Date of Service: 06/02/22 Chief Complaint: Respiratory failure, influenza Subjective: Improving (Patient is improving still hypoxic hypercarbic cardiac requiring BiPAP feeling better) Review of Systems General: Weakness Respiratory: Shortness of Breath Physical Examination - Vital Signs Temperature: 97.0 F Blood Pressure: 136/71 Pulse: 98 Respirations: 20 Pulse Ox (%): 96 - Physical Exam General: Alert, Oriented x3, Mild distress Respiratory: Clear to auscultation bilaterally, Diminished Cardiovascular: No edema, Normal pulses Assessment And Plan - Current Problems (Diagnosis) (1) Chronic respiratory failure with hypoxia and hypercapnia Current Visit: Yes Status: Acute Plan: Patient has acute on chronic respiratory failure awaiting NIV's hypoxic hypercarbic add Diamox bicarbonate elevated DC antibiotic titrate sat to 90% with oxygen respiratory failure is secondary to severe terminal COPD Physician Review: Patient Assessed, Agree with Above Assessment and Plan
[2022-06-02] MEDS: acetaZOLAMIDE 250 MG TAB PO SCH (14:54)
--- NOTE | 2022-06-02 18:28 | P.PN ---
Subjective Date of Service: 06/02/22 Chief Complaint: Respiratory failure, influenza No acute events overnight. She states that her shortness of breath has improved significantly. However, she continues to have shortness of breath with exertion. She denies chest pain or palpitations. Review of Systems 10-point ROS is otherwise unremarkable Respiratory: SOB with Excertion Physical Examination - Vital Signs Temperature: 97.0 F Blood Pressure: 141/69 Pulse: 87 Respirations: 19 Pulse Ox (%): 100 Assessment And Plan - Plan - Physical Exam General: Alert, In no apparent distress, Oriented x3 HEENT: Atraumatic, Mucous membr. moist/pink, EOMI, Sclerae nonicteric Neck: JVD not distended Respiratory: Diminished, Faint expiratory wheezes, Minimal rhonchi/gurgles Cardiovascular: No edema, Regular rate/rhythm, Normal S1 S2, No gallops, No rubs, No murmurs Gastrointestinal: Normal bowel sounds, Soft and benign, Non-distended, No tenderness, No rebound, No guarding Musculoskeletal: No clubbing Integumentary: No rashes Neurological: Normal speech, Cranial nerves 3-12 intact, Normal affect # Acute Hypercapnic, Hypoxemic Respiratory Failure - likely secondary to Chronic Obstructive Pulmonary Disease Exacerbation due to Influenza A Infection # Bronchiectasis # Suspect Interstitial Lung Disease - Evaluation thus far: - D-Dimer = 2417 - Procalcitonin = <0.05 - Respiratory Pathogen panel = Influenza A - Initial ABG = pH 7.08, PCO2 101.0, PO2 23.1 - Chest x-ray = "no acute abnormalities displayed" - CT chest angiogram = "no CT evidence for pulmonary embolus. Minimal bilateral apical pleural thickening with minimal bronchial thickening with the minimal interlobular septal thickening suggesting interstitial lung disease. Bronchiectasis involving the right middle lobe and inferior aspect of the inferior linear segment. Minimal tree-in-bud nodularities subpleural aspect suggest infection and/or inflammation." - Management plan: - Consulted Pulmonary Medicine and evaluated by Dr. Del Rio - recommendations appreciated - Bronchodilators + steroids per Pulm - Consulted Respiratory Therapy - Supplemental oxygen to maintain SpO2 > 92% - Started levofloxacin + oseltamivir - Encouraged incentive spirometry - Down grade from ICU to Med/Surg # Severe Viral Sepsis secondary to Influenza A Infection She met sepsis criteria based on HR > 90 bpm, RR > 20 breaths/min, and the suspected source is influenza A. Severe sepsis is suspected due to concern for tissue hypoperfusion/organ dysfunction based on acute respiratory failure requiring BiPAP. - Sepsis order set was initiated - Initial Lactate was 0.8 - Blood cultures drawn - Broad spectrum antimicrobials started: Levofloxacin + Oseltamivir - In regards to fluids: - 30 mL/kg of IV fluids was not administered given SBP > 90, MAP > 65, lactic acid < 4 # Hypertension - Continue home amlodipine, metoprolol # Hypothyroidism - Continue home levothyroxine # Ulcerative Colitis - Currently on prednisone for COPD # Abdominal Aortic Aneurysm (3.2 cm x 3.3 cm) # Left Subclavian Artery Stenting? - Noted on CT scan - Discussed with Ms. Raines, and explained Radiology recommendations to repeat scan in 3 years - She verbalized understanding and agreed to schedule this follow-up through her PCP Saran Mata M.D.
[2022-06-02] MEDS: MELATONIN 5 MG TABLET PO PRN (21:00)
[2022-06-03] MEDS: ALBUTEROL 2.5 MG/3 ML NEB SOL NEB SCH ×4 (00:45→20:10)
[2022-06-03] MEDS: IPRATROPIUM BROM 0.5MG/2.5ML NEB SCH ×4 (00:45→20:10)
[2022-06-03] MEDS: MORPHINE 2 MG/ML SYR IV PRN ×3 (02:51→21:43)
[2022-06-03] MEDS: AMLODIPINE 5 MG TAB PO SCH (08:50)
[2022-06-03] MEDS: LEVOTHYROXINE SOD 0.05 MG TABLET PO SCH (08:50)
[2022-06-03] MEDS: ROPINIROLE HCL 0.25 MG TAB PO SCH ×2 (08:50→20:41)
[2022-06-03] MEDS: METOPROLOL TAR 50 MG TAB PO SCH ×2 (08:50→20:41)
[2022-06-03] MEDS: ENSURE ENLIVE 237 ML CAN PO SCH ×2 (08:50→20:42)
[2022-06-03] MEDS: ASPIRIN 81 MG CHEWABLE TABLET PO SCH (08:50)
[2022-06-03] MEDS: ENOXAPARIN 40 MG/0.4 ML SQ SCH (08:50)
[2022-06-03] MEDS: OSELTAMIVIR 30 MG CAP PO SCH ×2 (08:50→20:41)
[2022-06-03] MEDS: predniSONE 20 MG TAB PO SCH ×2 (08:50→20:41)
[2022-06-03] MEDS: acetaZOLAMIDE 250 MG TAB PO SCH (08:50)
[2022-06-03] MEDS ORDERED: levoFLOXacin 750 MG TAB PO SCH (09:00)
--- NOTE | 2022-06-03 11:53 | P.PN ---
Subjective Date of Service: 06/03/22 Chief Complaint: Respiratory failure, influenza Patient's condition is stable she still continues to desat is hypoxic hypercapnic quiring BiPAP Review of Systems Respiratory: Shortness of Breath Physical Examination - Vital Signs Temperature: 97.2 F Blood Pressure: 118/79 Pulse: 93 Respirations: 94 Pulse Ox (%): 99 - Physical Exam General: Alert, In no apparent distress, Cooperative Respiratory: Clear to auscultation bilaterally, Diminished Cardiovascular: No edema, Regular rate/rhythm, Normal S1 S2 Assessment And Plan - Current Problems (Diagnosis) (1) Chronic respiratory failure with hypoxia and hypercapnia Current Visit: Yes Status: Acute Plan: Patient has chronic respiratory failure experiencing significant desat off the BiPAP very cachectic terminal COPD mildly hypokalemic vital signs satisfactory titrate sat to 88 to 90% not sure why patient is hypokalemic Physician Review: Patient Assessed, Agree with Above Assessment and Plan
[2022-06-03] MEDS: POTASSIUM 25 MEQ EFFERV TAB PO SCH ×2 (11:54→20:41)
[2022-06-03] MEDS ORDERED: POTASSIUM CL 40 MEQ in NA CHLORIDE 0.9% 500 ML IV SCH (12:00)
--- NOTE | 2022-06-03 13:35 | P.PN ---
Subjective Date of Service: 06/03/22 Chief Complaint: Respiratory failure, influenza No acute events overnight. Her breathing seems to have worsened compared to yesterday. She was on BiPAP again this morning, and was desatting to the mid- upper 80s when attempts were made to wean the ventilator. She denies chest pain or palpitations. Review of Systems 10-point ROS is otherwise unremarkable Respiratory: Cough, Shortness of Breath Physical Examination - Vital Signs Temperature: 97.2 F Blood Pressure: 133/88 Pulse: 91 Respirations: 94 Pulse Ox (%): 92 Assessment And Plan - Plan - Physical Exam General: Alert, In no apparent distress, Oriented x3 HEENT: Atraumatic, Mucous membr. moist/pink, EOMI, Sclerae nonicteric Neck: JVD not distended Respiratory: Diminished, Faint expiratory wheezes, Rhonchi/gurgles Cardiovascular: No edema, Regular rate/rhythm, Normal S1 S2, No gallops, No rubs, No murmurs Gastrointestinal: Normal bowel sounds, Soft and benign, Non-distended, No tenderness, No rebound, No guarding Musculoskeletal: No clubbing Integumentary: No rashes Neurological: Normal speech, Cranial nerves 3-12 intact, Normal affect # Acute Hypercapnic, Hypoxemic Respiratory Failure - likely secondary to Chronic Obstructive Pulmonary Disease Exacerbation due to Influenza A Infection # Bronchiectasis # Suspect Interstitial Lung Disease - Evaluation thus far: - D-Dimer = 2417 - Procalcitonin = <0.05 - Respiratory Pathogen panel = Influenza A - Initial ABG = pH 7.08, PCO2 101.0, PO2 23.1 - Chest x-ray = "no acute abnormalities displayed" - CT chest angiogram = "no CT evidence for pulmonary embolus. Minimal bilateral apical pleural thickening with minimal bronchial thickening with the minimal interlobular septal thickening suggesting interstitial lung disease. Bronchiectasis involving the right middle lobe and inferior aspect of the inferior linear segment. Minimal tree-in-bud nodularities subpleural aspect suggest infection and/or inflammation." - Management plan: - Consulted Pulmonary Medicine and evaluated by Dr. Del Rio - recommendations appreciated - Bronchodilators + steroids per Pulm - Dr. Del Rio working on arranging for a non-invasive ventilator at home - Consulted Respiratory Therapy - Supplemental oxygen to maintain SpO2 > 92% - Started levofloxacin + oseltamivir - Encouraged incentive spirometry # Severe Viral Sepsis secondary to Influenza A Infection She met sepsis criteria based on HR > 90 bpm, RR > 20 breaths/min, and the suspected source is influenza A. Severe sepsis is suspected due to concern for tissue hypoperfusion/organ dysfunction based on acute respiratory failure requiring BiPAP. - Sepsis order set was initiated - Initial Lactate was 0.8 - Blood cultures drawn - Broad spectrum antimicrobials started: Levofloxacin + Oseltamivir - In regards to fluids: - 30 mL/kg of IV fluids was not administered given SBP > 90, MAP > 65, lactic acid < 4 # Hypertension - Continue home amlodipine, metoprolol # Hypothyroidism - Continue home levothyroxine # Ulcerative Colitis - Currently on prednisone for COPD # Abdominal Aortic Aneurysm (3.2 cm x 3.3 cm) # Left Subclavian Artery Stenting? - Noted on CT scan - Discussed with Ms. Raines, and explained Radiology recommendations to repeat scan in 3 years - She verbalized understanding and agreed to schedule this follow-up through her PCP Saran Mata M.D.
[2022-06-03] MEDS ORDERED: POTASSIUM CL SA 10 MEQ TAB PO ONE (14:14)
[2022-06-03] MEDS: HYDROCODONE/APAP 5/325 MG TAB PO PRN (18:38)
[2022-06-03] MEDS: BENZONATATE 100 MG CAP PO PRN (20:40)
[2022-06-03] MEDS: MELATONIN 5 MG TABLET PO PRN (20:47)
[2022-06-04] MEDS: IPRATROPIUM BROM 0.5MG/2.5ML NEB SCH ×4 (01:40→20:00)
[2022-06-04] MEDS: ALBUTEROL 2.5 MG/3 ML NEB SOL NEB SCH ×4 (01:40→20:00)
[2022-06-04 05:09] LABS: Potassium 5.2 mmol/L (3.5-5.1)
[2022-06-04] MEDS: POTASSIUM 25 MEQ EFFERV TAB PO SCH ×2 (07:22→19:42)
[2022-06-04 08:11] LABS: Potassium 4.8 mmol/L (3.5-5.1)
[2022-06-04] MEDS: ROPINIROLE HCL 0.25 MG TAB PO SCH ×2 (08:39→19:40)
[2022-06-04] MEDS: acetaZOLAMIDE 250 MG TAB PO SCH (08:39)
[2022-06-04] MEDS: AMLODIPINE 5 MG TAB PO SCH (08:39)
[2022-06-04] MEDS: ENOXAPARIN 40 MG/0.4 ML SQ SCH (08:39)
[2022-06-04] MEDS: predniSONE 20 MG TAB PO SCH ×2 (08:40→19:40)
[2022-06-04] MEDS: LEVOTHYROXINE SOD 0.05 MG TABLET PO SCH (08:40)
[2022-06-04] MEDS: METOPROLOL TAR 50 MG TAB PO SCH ×2 (08:40→19:41)
[2022-06-04] MEDS: ASPIRIN 81 MG CHEWABLE TABLET PO SCH (08:40)
[2022-06-04] MEDS: ENSURE ENLIVE 237 ML CAN PO SCH ×2 (08:40→19:41)
[2022-06-04] MEDS: OSELTAMIVIR 30 MG CAP PO SCH (08:40)
--- NOTE | 2022-06-04 11:39 | P.PN ---
Subjective Date of Service: 06/04/22 Chief Complaint: Respiratory failure, influenza Patient is improving currently on BiPAP and feeling very weak daughter at the bedside apparently at baseline she is very active able to take care of her self Review of Systems General: Weakness Respiratory: Shortness of Breath Physical Examination - Vital Signs Temperature: 97.0 F Blood Pressure: 129/65 Pulse: 111 Respirations: 28 Pulse Ox (%): 98 - Physical Exam General: Alert, Oriented x3, Mild distress Respiratory: Diminished Cardiovascular: No edema, Normal S1 S2 Assessment And Plan - Current Problems (Diagnosis) (1) Chronic respiratory failure with hypoxia and hypercapnia Current Visit: Yes Status: Acute Plan: Respiratory failure improving off BiPAP on nasal cannula titrate sat to 90% vital signs stable most recent labs reviewed noninvasive ventilator ordered Physician Review: Patient Assessed, Agree with Above Assessment and Plan
--- NOTE | 2022-06-04 12:09 | P.PN ---
Subjective Date of Service: 06/04/22 Chief Complaint: Respiratory failure, influenza No acute events overnight. She has been intermittently on BiPAP. She reports that she feels generalized weakness. She denies any significant change in her breathing. Non-invasive ventilator ordered per Dr. Del Rio. Review of Systems 10-point ROS is otherwise unremarkable General: Weakness, Malaise Respiratory: Cough, Shortness of Breath Physical Examination - Vital Signs Temperature: 97.0 F Blood Pressure: 129/65 Pulse: 111 Respirations: 28 Pulse Ox (%): 98 Assessment And Plan - Plan - Physical Exam General: Alert, In no apparent distress, Oriented x3 HEENT: Atraumatic, Mucous membr. moist/pink, Sclerae nonicteric Neck: JVD not distended Respiratory: Diminished, Diffuse, but faint rhonchi/gurgles Cardiovascular: No edema, Regular rate/rhythm, No gallops, No rubs, No murmurs Gastrointestinal: Normal bowel sounds, Soft and benign, Non-distended, No tenderness, No rebound, No guarding Musculoskeletal: No clubbing Integumentary: No rashes Neurological: Normal speech, Cranial nerves 3-12 intact, Normal affect # Acute Hypercapnic, Hypoxemic Respiratory Failure - likely secondary to Chronic Obstructive Pulmonary Disease Exacerbation due to Influenza A Infection # Bronchiectasis # Suspect Interstitial Lung Disease - Evaluation thus far: - D-Dimer = 2417 - Procalcitonin = <0.05 - Respiratory Pathogen panel = Influenza A - Initial ABG = pH 7.08, PCO2 101.0, PO2 23.1 - Chest x-ray = "no acute abnormalities displayed" - CT chest angiogram = "no CT evidence for pulmonary embolus. Minimal bilateral apical pleural thickening with minimal bronchial thickening with the minimal interlobular septal thickening suggesting interstitial lung disease. Bronchiectasis involving the right middle lobe and inferior aspect of the inferior linear segment. Minimal tree-in-bud nodularities subpleural aspect suggest infection and/or inflammation." - Management plan: - Consulted Pulmonary Medicine and evaluated by Dr. Del Rio - recommendations appreciated - Bronchodilators + steroids per Pulm - Dr. Del Rio working on arranging for a non-invasive ventilator at home - Consulted Respiratory Therapy - Supplemental oxygen to maintain SpO2 > 92% - Continue levofloxacin + oseltamivir - Encouraged incentive spirometry # Severe Viral Sepsis secondary to Influenza A Infection She met sepsis criteria based on HR > 90 bpm, RR > 20 breaths/min, and the suspected source is influenza A. Severe sepsis is suspected due to concern for tissue hypoperfusion/organ dysfunction based on acute respiratory failure requiring BiPAP. - Sepsis order set was initiated - Initial Lactate was 0.8 - Blood cultures drawn - Broad spectrum antimicrobials started: Levofloxacin + Oseltamivir - In regards to fluids: - 30 mL/kg of IV fluids was not administered given SBP > 90, MAP > 65, lactic acid < 4 # Hypertension - Continue home amlodipine, metoprolol # Hypothyroidism - Continue home levothyroxine # Ulcerative Colitis - Currently on prednisone for COPD # Abdominal Aortic Aneurysm (3.2 cm x 3.3 cm) # Left Subclavian Artery Stenting? - Noted on CT scan - Discussed with Ms. Raines, and explained Radiology recommendations to repeat scan in 3 years - She verbalized understanding and agreed to schedule this follow-up through her PCP # Generalized Weakness - Consulted PT - recommendations appreciated Saran Mata M.D.
[2022-06-04] MEDS ORDERED: NA CHLORIDE 0.9% 500 ML IV ONE (12:11)
[2022-06-04 15:34] LABS: Potassium 4.7 mmol/L (3.5-5.1)
[2022-06-04] MEDS: MELATONIN 5 MG TABLET PO PRN (19:40)
[2022-06-04] MEDS: BENZONATATE 100 MG CAP PO PRN (19:41)
[2022-06-04] MEDS: MORPHINE 2 MG/ML SYR IV PRN (19:42)
[2022-06-05] MEDS: MAGNES/ALUMIN/SIMET 30ML UCUP PO SCH ×4 (01:04→21:37)
[2022-06-05] MEDS: ALBUTEROL 2.5 MG/3 ML NEB SOL NEB SCH ×4 (02:00→20:20)
[2022-06-05] MEDS: IPRATROPIUM BROM 0.5MG/2.5ML NEB SCH ×4 (02:00→20:20)
[2022-06-05 05:00] LABS: Absolute Lymphocytes (CBC) 0.8 K/uL (0.7-4.9); Hematocrit 29.6 % (36.0-45.0); Lymphocytes % 8.6 % (15.3-44.8); MCV 81.9 fL (80-100); MPV 9.4 fL (7.6-11.3); RBC Red Blood Cell Count 3.61 M/uL (3.86-4.86)
[2022-06-05 05:16] LABS: Potassium 4.2 mmol/L (3.5-5.1)
[2022-06-05 05:31] VITALS: BMI 17.2
[2022-06-05] MEDS: ENSURE ENLIVE 237 ML CAN PO SCH ×2 (09:00→21:36)
[2022-06-05] MEDS: predniSONE 20 MG TAB PO SCH ×2 (09:02→21:36)
[2022-06-05] MEDS: LEVOTHYROXINE SOD 0.05 MG TABLET PO SCH (09:02)
[2022-06-05] MEDS: ASPIRIN 81 MG CHEWABLE TABLET PO SCH (09:02)
[2022-06-05] MEDS: AMLODIPINE 5 MG TAB PO SCH (09:03)
[2022-06-05] MEDS: ENOXAPARIN 40 MG/0.4 ML SQ SCH (09:03)
[2022-06-05] MEDS: acetaZOLAMIDE 250 MG TAB PO SCH (09:03)
[2022-06-05] MEDS: POTASSIUM 25 MEQ EFFERV TAB PO SCH ×2 (09:03→21:36)
[2022-06-05] MEDS: METOPROLOL TAR 50 MG TAB PO SCH ×2 (09:03→21:36)
[2022-06-05] MEDS: ROPINIROLE HCL 0.25 MG TAB PO SCH ×2 (09:07→21:37)
[2022-06-05] MEDS: HYDROCODONE/APAP 5/325 MG TAB PO PRN ×3 (09:18→22:00)
--- NOTE | 2022-06-05 12:19 | P.PN ---
Subjective Date of Service: 06/05/22 Chief Complaint: Respiratory failure, influenza Patient's condition is stable off BiPAP and feeling very weak Review of Systems General: Weakness Respiratory: Shortness of Breath Physical Examination - Vital Signs Temperature: 97.4 F Blood Pressure: 127/57 Pulse: 104 Respirations: 19 Pulse Ox (%): 100 - Physical Exam General: Alert, Oriented x3, Mild distress Respiratory: Expiratory wheezes Cardiovascular: No edema, Regular rate/rhythm Assessment And Plan - Current Problems (Diagnosis) (1) Chronic respiratory failure with hypoxia and hypercapnia Current Visit: Yes Status: Acute Plan: Condition stable patient is improving oxygenation satisfactory 100% on 2 L with BiPAP as needed very weak debilitated labs chemistries reviewed no change prognosis poor ending NIV for home Physician Review: Patient Assessed, Agree with Above Assessment and Plan
--- NOTE | 2022-06-05 14:03 | P.PN ---
Subjective Date of Service: 06/05/22 Subjective: No new changes, No C/O voiced, Improving Chart has been reviewed. Events of the last 24 hours have been noted. Need for noninvasive ventilator as an outpatient. Continue with physical therapy. Review of Systems 10-point ROS is otherwise unremarkable Physical Examination - Vital Signs Temperature: 97.4 F Blood Pressure: 127/57 Pulse: 104 Respirations: 19 Pulse Ox (%): 100 - Physical Exam General: Alert, In no apparent distress, Oriented x3 Respiratory: Diminished, Expiratory wheezes Cardiovascular: Regular rate/rhythm, Normal S1 S2, No murmurs Gastrointestinal: Normal bowel sounds, Soft and benign, Non-distended, No tenderness Musculoskeletal: No clubbing, No swelling, No tenderness Neurological: Sensation intact, Cranial nerves 3-12 intact - Studies Medications List Reviewed: Yes Assessment & Plan - Problems (Diagnosis) (1) Acute on chronic respiratory failure with hypoxia and hypercapnia Current Visit: No Status: Acute (2) COPD exacerbation Onset Date: 06/10/18 Current Visit: No Status: Acute (3) CVA (cerebral vascular accident) Current Visit: No Status: Acute Qualifiers: CVA mechanism: unspecified Qualified Code(s): I63.9 - Cerebral infarction, unspecified (4) History of TIA (transient ischemic attack) Current Visit: No Status: Acute (5) Hyperthyroidism Onset Date: 08/22/16 Current Visit: No Status: Acute (6) Chronic renal disease Onset Date: 10/31/17 Current Visit: No Status: Chronic Qualifiers: Chronic kidney disease stage: stage 2 (mild) Qualified Code(s): N18.2 - Chronic kidney disease, stage 2 (mild) (7) Depression Onset Date: 10/31/17 Current Visit: No Status: Chronic Qualifiers: Depression Type: unspecified Qualified Code(s): F32.A - Depression, unspecified (8) History of CVA (cerebrovascular accident) Current Visit: No Status: Chronic (9) Hyperlipidemia Onset Date: 10/31/17 Current Visit: No Status: Chronic Qualifiers: (10) Hypertension Onset Date: 08/22/16 Current Visit: No Status: Chronic Qualifiers: Hypertension type: essential hypertension (11) Hypothyroidism Onset Date: 12/14/17 Current Visit: No Status: Chronic Qualifiers: Hypothyroidism type: acquired Qualified Code(s): E03.9 - Hypothyroidism, unspecified (12) Insomnia Onset Date: 10/31/17 Current Visit: No Status: Chronic Qualifiers: Insomnia type: unspecified Qualified Code(s): G47.00 - Insomnia, unspecified (13) RLS (restless legs syndrome) Onset Date: 10/31/17 Current Visit: No Status: Chronic - Plan Plan: 1. Arrange for noninvasive ventilator 2. Continue with physical therapy; may need to arrange for snf facility placement 3. Monitor labs 4. Out of bed and ambulate and up to chair with meals 5. Increase protein intake 6. Monitor hypercapnia-continue with Diamox 7. GI and DVT prophylaxis Discharge Plan: Home Plan to discharge in: Greater than 2 days - Advance Directives Does patient have a Living Will: No Does patient have a Durable POA for Healthcare: No - Code Status/Comfort Care Code Status Assessed: Yes Code Status: Full Code Physician Review: Patient Assessed, Agree with Above Assessment and Plan Critical Care: No Time Spent Managing PTS Care (In Minutes): 30
--- NOTE | 2022-06-05 15:09 | EKG ---
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
[2022-06-05 15:40] LABS: Blood Gas Oxyhemoglobin 91.6 % (94-97); Blood O2 Saturation 92.7 % (92-98.5)
[2022-06-06] MEDS: ALBUTEROL 2.5 MG/3 ML NEB SOL NEB SCH ×4 (01:55→20:00)
[2022-06-06] MEDS: IPRATROPIUM BROM 0.5MG/2.5ML NEB SCH ×4 (01:55→20:00)
[2022-06-06] MEDS: acetaZOLAMIDE 250 MG TAB PO SCH (08:51)
[2022-06-06] MEDS: LEVOTHYROXINE SOD 0.05 MG TABLET PO SCH (08:51)
[2022-06-06] MEDS: predniSONE 20 MG TAB PO SCH ×2 (08:51→20:45)
[2022-06-06] MEDS: AMLODIPINE 5 MG TAB PO SCH (08:51)
[2022-06-06] MEDS: ASPIRIN 81 MG CHEWABLE TABLET PO SCH (08:51)
[2022-06-06] MEDS: METOPROLOL TAR 50 MG TAB PO SCH ×2 (08:52→20:46)
[2022-06-06] MEDS: MAGNES/ALUMIN/SIMET 30ML UCUP PO SCH ×3 (08:52→20:45)
[2022-06-06] MEDS: POTASSIUM 25 MEQ EFFERV TAB PO SCH ×2 (08:52→20:45)
[2022-06-06] MEDS: ROPINIROLE HCL 0.25 MG TAB PO SCH ×2 (08:53→20:45)
[2022-06-06] MEDS: ENOXAPARIN 40 MG/0.4 ML SQ SCH (08:54)
[2022-06-06] MEDS: ENSURE ENLIVE 237 ML CAN PO SCH (08:54)
[2022-06-06] MEDS ORDERED: FUROSEMIDE 20 MG/ 2ML VIAL IV ONE (10:43)
[2022-06-06] MEDS: HYDROCODONE/APAP 5/325 MG TAB PO PRN ×2 (10:51→20:56)
[2022-06-06] MEDS: ONDANSETRON 4 MG/2 ML VIAL IV PRN (22:54)
--- NOTE | 2022-06-06 23:06 | P.PN ---
Date of Service: 06/06/22 Subjective Patient is clinically doing better. Respiratory status is stable. Noninvasive ventilator is set up to be sent to the home once patient is released. She is very frail and cachectic. She has been walking with physical therapy with segmented walking because she gets so tired. She walked 10 ft the 1st time in 20 ft the 2nd time. She gets very fatigued quickly. Will need to arrange for home health with physical therapy and nursing care and occupational therapy as well. Review of Systems 10-point ROS is otherwise unremarkable Physical Examination - Vital Signs reviewed - Physical Exam General: Alert, In no apparent distress Respiratory: Clear to auscultation bilaterally, Normal air movement Cardiovascular: Regular rate/rhythm, Normal S1 S2 Gastrointestinal: Normal bowel sounds, No tenderness Neurological: Normal speech, Normal tone, Normal affect Assessment & Plan - Problems (Diagnosis) (1) Acute on chronic respiratory failure with hypoxia and hypercapnia Current Visit: No Status: Acute (2) COPD exacerbation Onset Date: 06/10/18 Current Visit: No Status: Acute (3) CVA (cerebral vascular accident) Current Visit: No Status: Acute CVA mechanism: unspecified Qualified Code(s): I63.9 - Cerebral infarction, unspecified (4) History of TIA (transient ischemic attack) Current Visit: No Status: Acute (5) Hyperthyroidism Onset Date: 08/22/16 Current Visit: No Status: Acute (6) Chronic renal disease Onset Date: 10/31/17 Current Visit: No Status: Chronic Chronic kidney disease stage: stage 2 (mild) Qualified Code(s): N18.2 - Chronic kidney disease, stage 2 (mild) (7) Depression Onset Date: 10/31/17 Current Visit: No Status: Chronic Depression Type: unspecified Qualified Code(s): F32.9 - Major depressive disorder, single episode, unspecified (8) History of CVA (cerebrovascular accident) Current Visit: No Status: Chronic (9) Hyperlipidemia Onset Date: 10/31/17 Current Visit: No Status: Chronic (10) Hypertension Onset Date: 08/22/16 Current Visit: No Status: Chronic Hypertension type: essential hypertension (11) Hypothyroidism Onset Date: 12/14/17 Current Visit: No Status: Chronic Hypothyroidism type: acquired Qualified Code(s): E03.9 - Hypothyroidism, unspecified (12) Insomnia Onset Date: 10/31/17 Current Visit: No Status: Chronic Insomnia type: unspecified Qualified Code(s): G47.00 - Insomnia, unspecified (13) RLS (restless legs syndrome) Onset Date: 10/31/17 Current Visit: No Status: Chronic - Plan Continue with current plan of care as mentioned below: 1. Arranged for noninvasive ventilator 2. Continuing with physical therapy; arrange for [facility] facility placement/swing bed vs. w/ PT/OT 3. Resume psych meds 4. Out of bed and ambulate and up to chair with meals 5. Increase protein intake 6. Monitor labs closely 7. GI and DVT prophylaxis
[2022-06-07] MEDS: ALBUTEROL 2.5 MG/3 ML NEB SOL NEB SCH ×3 (02:00→14:30)
[2022-06-07] MEDS: IPRATROPIUM BROM 0.5MG/2.5ML NEB SCH ×4 (02:00→20:20)
[2022-06-07] MEDS: HYDROCODONE/APAP 5/325 MG TAB PO PRN ×3 (05:37→20:17)
[2022-06-07 06:56] LABS: Albumin 3.4 g/dL (3.4-5.0); Bilirubin Total 0.4 mg/dL (0.2-1.0); Magnesium 3.2 mg/dL (1.6-2.4); Potassium 4.9 mmol/L (3.5-5.1); Protein, Total 7.1 g/dL (6.4-8.2)
[2022-06-07 07:01] LABS: Absolute Lymphocytes (CBC) 1.1 K/uL (0.7-4.9); Hematocrit 31.5 % (36.0-45.0); Lymphocytes % 19.9 % (15.3-44.8); MCV 81.8 fL (80-100); RBC Red Blood Cell Count 3.84 M/uL (3.86-4.86)
[2022-06-07] MEDS: POTASSIUM 25 MEQ EFFERV TAB PO SCH (08:29)
--- NOTE | 2022-06-07 08:45 | RAD REPORT ---
EXAM DESCRIPTION: RAD - Chest Single View - 06/07/2022 6:28 am CLINICAL HISTORY: pneumonia Chest pain. COMPARISON: Chest Single View dated 05/30/2022; Chest Single View dated 04/05/2022; Chest Single View dated 03/28/2022; Chest Single View dated 03/24/2022 FINDINGS: Portable technique limits examination quality. The lungs are grossly clear. The heart is normal in size. No displaced fractures.Aortic atheroscleros is. IMPRESSION: No acute intrathoracic process suspected.
[2022-06-07] MEDS: acetaZOLAMIDE 250 MG TAB PO SCH (09:33)
[2022-06-07] MEDS: AMLODIPINE 5 MG TAB PO SCH (09:33)
[2022-06-07] MEDS: ASPIRIN 81 MG CHEWABLE TABLET PO SCH (09:33)
[2022-06-07] MEDS: METOPROLOL TAR 50 MG TAB PO SCH ×2 (09:33→20:17)
[2022-06-07] MEDS: predniSONE 20 MG TAB PO SCH (09:34)
[2022-06-07] MEDS: LEVOTHYROXINE SOD 0.05 MG TABLET PO SCH (09:34)
[2022-06-07] MEDS: ENOXAPARIN 40 MG/0.4 ML SQ SCH (09:34)
[2022-06-07] MEDS: ROPINIROLE HCL 0.25 MG TAB PO SCH ×2 (09:34→20:17)
[2022-06-07] MEDS ORDERED: ALBUTEROL 2.5 MG/3 ML NEB SOL IH PRN ×2 (10:19→19:00)
[2022-06-07] MEDS ORDERED: QUETIAPINE 100MG TAB PO ONE (10:53)
[2022-06-07] MEDS: VITAMIN D 1000 UNIT TAB PO SCH (11:27)
[2022-06-07] MEDS: SUCRALFATE 1 GM TABLET PO SCH ×3 (11:27→20:17)
[2022-06-07] MEDS: PANTOPRAZOLE 40MG TABLET PO SCH (11:27)
[2022-06-07] MEDS: DULOXETINE 30 MG CAP PO ONE (12:06)
--- NOTE | 2022-06-07 12:07 | P.PN ---
Subjective Date of Service: 06/07/22 Chief Complaint: Respiratory failure, influenza Patient's condition is improving she is feeling better very weak and did ambulate oxygen has been titrated down to nasal cannula Review of Systems General: Weakness Respiratory: Shortness of Breath Physical Examination - Vital Signs Temperature: 98.1 F Blood Pressure: 140/67 Pulse: 109 Respirations: 19 Pulse Ox (%): 97 - Physical Exam General: Alert, Oriented x3, Mild distress Respiratory: Clear to auscultation bilaterally, Diminished Cardiovascular: No edema, Regular rate/rhythm - Studies Medications List Reviewed: Yes Assessment And Plan - Current Problems (Diagnosis) (1) Chronic respiratory failure with hypoxia and hypercapnia Current Visit: Yes Status: Acute Plan: Patient's condition is improving stable now on nasal cannula oxygen noninvasive ventilator has been approved renal function is slightly worse reduce dose of prednisone to 10 mg twice a day continue with Diamox discharge planning Physician Review: Patient Assessed, Agree with Above Assessment and Plan
--- NOTE | 2022-06-07 12:48 | P.PN ---
Date of Service: 06/07/22 Subjective Resumed seroquel and cymbalta as well as Trazodone at night; pt decided on swing bed placement. She feels she may be withdrawing a little Physical Examination - Vital Signs reviewed - Physical Exam General: Alert, In no apparent distress Respiratory: diminished breath sounds but otherwise clear; end expiratory wheezing Cardiovascular: Regular rate/rhythm, Normal S1 S2 Gastrointestinal: Normal bowel sounds, No tenderness Neurological: No focal deficits; tremors Assessment & Plan - Problems (Diagnosis) (1) Acute on chronic respiratory failure with hypoxia and hypercapnia Current Visit: No Status: Acute (2) COPD exacerbation Onset Date: 06/10/18 Current Visit: No Status: Acute (3) CVA (cerebral vascular accident) Current Visit: No Status: Acute CVA mechanism: unspecified Qualified Code(s): I63.9 - Cerebral infarction, unspecified (4) History of TIA (transient ischemic attack) Current Visit: No Status: Acute (5) Hyperthyroidism Onset Date: 08/22/16 Current Visit: No Status: Acute (6) Chronic renal disease Onset Date: 10/31/17 Current Visit: No Status: Chronic Chronic kidney disease stage: stage 2 (mild) Qualified Code(s): N18.2 - Chronic kidney disease, stage 2 (mild) (7) Depression Onset Date: 10/31/17 Current Visit: No Status: Chronic Depression Type: unspecified Qualified Code(s): F32.9 - Major depressive disorder, single episode, unspecified (8) History of CVA (cerebrovascular accident) Current Visit: No Status: Chronic (9) Hyperlipidemia Onset Date: 10/31/17 Current Visit: No Status: Chronic (10) Hypertension Onset Date: 08/22/16 Current Visit: No Status: Chronic Hypertension type: essential hypertension (11) Hypothyroidism Onset Date: 12/14/17 Current Visit: No Status: Chronic Hypothyroidism type: acquired Qualified Code(s): E03.9 - Hypothyroidism, unspecified (12) Insomnia Onset Date: 10/31/17 Current Visit: No Status: Chronic Insomnia type: unspecified Qualified Code(s): G47.00 - Insomnia, unspecified (13) RLS (restless legs syndrome) Onset Date: 10/31/17 Current Visit: No Status: Chronic - Plan Continue with current plan of care as mentioned below: 1. Arranged for noninvasive ventilator; will be delivered at discharge 2. Continuing with physical therapy; arrange for swing bed 3. Resume psych meds-trazodone, cymbalta, and seroquel 4. Monitor renal functions 5. Increase protein intake 6. Monitor CO2 7. GI and DVT prophylaxis
[2022-06-07] MEDS: predniSONE 10 MG TAB PO SCH (20:17)
[2022-06-07] MEDS: gemfibroziL 600 MG TAB PO SCH (20:17)
[2022-06-07] MEDS ORDERED: TRAZODONE 50 MG TABLET PO SCH (21:00)
[2022-06-08] MEDS: IPRATROPIUM BROM 0.5MG/2.5ML NEB SCH ×3 (02:55→14:00)
[2022-06-08 07:23] LABS: Absolute Lymphocytes (CBC) 0.9 K/uL (0.7-4.9); Lymphocytes % 24.6 % (15.3-44.8); MCV 81.4 fL (80-100); MPV 9.8 fL (7.6-11.3); RBC Red Blood Cell Count 3.81 M/uL (3.86-4.86)
[2022-06-08 07:36] LABS: Albumin 3.4 g/dL (3.4-5.0); Bilirubin Total 0.4 mg/dL (0.2-1.0); Magnesium 2.7 mg/dL (1.6-2.4); Potassium 3.8 mmol/L (3.5-5.1)
[2022-06-08] MEDS: VITAMIN D 1000 UNIT TAB PO SCH (07:40)
[2022-06-08] MEDS: predniSONE 10 MG TAB PO SCH (07:40)
[2022-06-08] MEDS: AMLODIPINE 5 MG TAB PO SCH (07:40)
[2022-06-08] MEDS: gemfibroziL 600 MG TAB PO SCH (07:41)
[2022-06-08] MEDS: acetaZOLAMIDE 250 MG TAB PO SCH (07:41)
[2022-06-08] MEDS: PANTOPRAZOLE 40MG TABLET PO SCH (07:42)
[2022-06-08] MEDS: ASPIRIN 81 MG CHEWABLE TABLET PO SCH (07:42)
[2022-06-08] MEDS: LEVOTHYROXINE SOD 0.05 MG TABLET PO SCH (07:42)
[2022-06-08] MEDS: HYDROCODONE/APAP 5/325 MG TAB PO PRN ×2 (07:42→16:07)
[2022-06-08] MEDS: METOPROLOL TAR 50 MG TAB PO SCH (07:42)
[2022-06-08] MEDS: SUCRALFATE 1 GM TABLET PO SCH ×3 (07:42→16:07)
[2022-06-08] MEDS: ROPINIROLE HCL 0.25 MG TAB PO SCH (07:43)
[2022-06-08] MEDS: DULOXETINE 30 MG CAP PO ONE (07:56)
[2022-06-08] MEDS ORDERED: ENOXAPARIN 30 MG/0.3 ML SQ SCH (09:00)
[2022-06-08] MEDS ORDERED: DULOXETINE 30 MG CAP PO SCH (09:00)
[2022-06-08] MEDS ORDERED: QUETIAPINE 100MG TAB PO SCH (09:00)
[2022-06-08 16:25] VITALS: BP 151/67
[2022-06-08 16:26] VITALS: TEMP 97.2
[2022-06-08 18:19] VITALS: O2SAT 97
[2022-06-08] MEDS ORDERED: TRAZODONE 50 MG TABLET PO SCH (21:00)
[2022-06-10 07:44] LABS: C.diff Antigen/Toxin Ag neg : Tox neg (NEG : NEG)
== END 2022-06-08 18:00 | disposition home or self-care (01) | DRG 871 ==
LOC: ER 18:42 → ERHOLD 22:37 → 3RD-ICU 05-31 03:22 → 4TH 06-08 17:40
PROVIDERS: ADMIT Internal Medicine; ATTEND Hospitalist
PROC: 5A09557 Assistance with Respiratory Ventilation, Greater than 96 Consecutive Hours, Continuous Positive Airway Pressure (ICD-10-PCS; principal; 2022-05-30)
DX: A41.89 Other specified sepsis (principal); J96.21 Acute and chronic respiratory failure with hypoxia; J96.22 Acute and chronic respiratory failure with hypercapnia; R64 Cachexia; J84.9 Interstitial pulmonary disease, unspecified; J44.1 Chronic obstructive pulmonary disease with (acute) exacerbation; K51.90 Ulcerative colitis, unspecified, without complications; Z68.1 Body mass index [BMI] 19.9 or less, adult; J10.1 Influenza due to other identified influenza virus with other respiratory manifestations; E03.9 Hypothyroidism, unspecified; E87.6 Hypokalemia; N18.2 Chronic kidney disease, stage 2 (mild); G25.81 Restless legs syndrome; E78.5 Hyperlipidemia, unspecified; F17.210 Nicotine dependence, cigarettes, uncomplicated; Z99.81 Dependence on supplemental oxygen; Z20.822 Contact with and (suspected) exposure to COVID-19; I71.40 Abdominal aortic aneurysm, without rupture, unspecified; G47.00 Insomnia, unspecified; F32.9 Major depressive disorder, single episode, unspecified; Z86.73 Personal history of transient ischemic attack (TIA), and cerebral infarction without residual deficits
CPT/HCPCS: 0241U; 36415; 71045; 71275; 80048; 80053; 80076; 81003; 81015; 82805; 83605; 83735; 83880; 84132; 84145; 84484; 85025; 85379; 85610; 87040; 87070; 87205; 87324; 93005; 94640; 94660; 96361; 96374; 96375; 97116; 97161; 97530; 99285; J1200; J1650; J1940; J2270; J2405; J2920; J3480; J7040; J7512; J7613; J7614; J7644; Q9967

== ENCOUNTER 2022-09-25 10:22 | Inpatient (IN) | payer OTHER ==
--- OUTSIDE RECORDS SUMMARY | 2022-09-25 10:41 | XMS REPORT | Continuity of Care Document ---
:1950 Author Organization [facility] t Address [address] [facility] [address] [place] [address] Care Team Providers Name Role Phone Jodie Patterson Attending Clinician Unavailable Kaylene Polo Attending Clinician Unavailable Payers Payer Name Policy Type Policy Number Effective Date Expiration Date S ource MEDICARE MB [id number] 2013 [facility] NOVITAS 00:00:00 [facility] Problems Condition Condition Condition Status Onset Resolution Last Treating Co mments Source Name Details Category Date Date Treatment Clinician Date [id number] Sciatica, Problem Comm on left side [facility] [id number] Coronary Problem Comm on artery [facility] disease - [facility] involving [facility] coronary Medical artery of [place] belkofski heart without angina pectoris [id number] Frequency Problem Com mon of Spirit urination [facility] [id number] Gastroesop Problem Co mmon hageal [facility] reflux - [facility] disease [facility] esophagiti Medica l [facility] [id number] Bronchitis Problem Com mon [facility] Age-relate Age-relate Problem C ommon d d Spirit osteoporos osteoporos - [facility]I is is without [facility] pathologic Medica al [place] fracture Tobacco Nicotine Problem Common user addiction [facility] Cerebral Cerebral Problem Commo n atheroscle atheroscle Sp blu rosis rosis [facility] Right side Sciatica, Problem Co mmon sciatica right side Spir it - [facility] 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 - [facility] s without s without St myelopathy myelopathy [facility] [id number] Cigarette Problem Comm on nicotine Spirit dependence - [facility] 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 [facility] [id number] BREAUX Problem Common (dyspnea Spirit on - [facility]I exertion) [facility] Chronic +5th digit Problem Comm on kidney eff Spirit disease 03/25/20*Ch - [facility] stage 3 ronic kidney [facility] disease, Medical stage 3 Center (moderate) [id number] Oxygen Problem Commo n 07 dependent [facility] 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 [facility] History of Personal Problem Com mon polyp of history of Spir it colon colonic - [facility] polyps [facility] Acute low Acute low Problem Com mon back pain back pain Spir it [facility] [id number] Hospital Problem Comm on discharge Spirit follow-up - [facility] Peripheral Peripheral Problem C ommon vascular vascular Spirit disease disease - [facility] Hypothyroi Hypothyroi Problem C ommon dism dism [facility] Screening Screening Problem Com mon for breast for breast Sp blu cancer cancer - [facility] Depressive Depressive Problem C ommon disorder disorder [facility] [id number] Nausea Problem Common [facility] Benign Benign Problem Common hypertensi hypertensi Sp blu on on - [facility] [id number] Body mass Problem Com mon index Spirit (BMI) less - CHI than 16.5 [facility] COPD - COPD Problem Common Chronic (chronic Spirit obstructiv obstructiv - [facility] e e St pulmonary pulmonary [place] [facility] disease disease) [facility] [id number] Pneumonia Problem Com mon due to Spirit infectious - [facility] organism, unspecifie [facility] d Medical laterality Center , unspecifie d part of lung 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 accident accident - [facility] [id number] Wheezing Problem Commo n [facility] Restless Restless Problem Commo n legs legs Spirit syndrome syndrome - [facility] [id number] Cough Problem Common [facility] [id number] Chronic Problem Commo n obstructiv Spirit e - [facility]I pulmonary [facility] with acute Medica l exacerbati Center on Iron Other iron Problem Commo n deficiency deficiency Sp blu anemia anemia [facility] [id number] Chronic Problem Commo n pain Spirit syndrome [facility] [id number] Chronic Problem Commo n obstructiv Spirit e - [facility] pulmonary [facility] with acute Medica l lower Center respirator y infection Hypertrigl Hypertrigl Problem C ommon yceridemia yceridemia Sp blu [facility] [id number] Epigastric Problem Com mon pain [facility] Coronary CAD Problem Common artery (coronary [facility] disease [facility] Allergies, Adverse Reactions, Alerts Allergy Allergy Status Severity Reaction(s) Onset Inactive Treating Comm ents Source Name Type Date Date Clinician baclofen baclofen Active sever Common sleepiness [facility] 463 Drug Active rash Common allergy [facility] zolpidem zolpidem Active makes crazy C ommon [facility] codeine codeine Active itching [facility] 0 Drug Active rash, Common allergy blisters [facility] Social History Social Habit Start Date Stop Date Quantity Comments Source History of Tobacco Use Co mmon [facility] Sex Assigned At Com [facility] Smoking Status Start Date Stop Date Source Never Smoker [facility] Medications Ordered Filled Start Stop Current Ordering [...] MG 00:00: 00:00 00 :00 Doxycycline Doxycycline 2021-0 2022- No 1{capsu QD Doxycyclin Hyclate 100 Hyclate 100 02-23 le} e Hyclate MG MG 00:00: 00:00 100 MG 00 :00 Doxycycline Doxycycline 2021-0 2- No 1{capsu QD Doxycyclin Hyclate 100 [...] t} 10 MG 00:00: 00:00 00 :00 Treletaina Trelegy 2018-06 2020- No Kaylene 1 puff Com mon Ellipta Ellipta 1-26 01-25 [place] [facility] 00:00: 00:00 - [facility]I 00 :00 [facility] Ondansetron Ondansetron 2019-0 Yes Kaylene 1 tablet Common HCl HCl 9-27 [place] as needed Spirit 00:00: - [facility]I 00 [facility] Aspirin Aspirin Yes Kaylene 1 tablet Comm on Adult Low Adult Low [place] Sp[facility] it Strength Strength [facility] Seroquel Seroquel Yes Kaylene 1 tablet Co mmon [place] [facility] Ventolin Ventolin Yes Kaylene INHALE ONE Common HFA HFA [place] TO TWO Spirit PUFFS BY - CHI MOUTH St EVERY [facility] NEEDED FOR Center WHEEZING Metoprolol Metoprolol Yes Kaylene TAKE 1 Common Tartrate Tartrate [place] TABLET BY S pirit MOUTH - [facility]I TWICE DAILY [facility] Levothyroxi Levothyroxi Yes Kaylene 1 tablet Common ne Sodium ne Sodium [place] on an Spi rit empty - [facility] Kaylene 1 capsule C ommon [place] [facility] Vitamin D3 Vitamin D3 Yes Kaylene 1 capsule Common [place] [facility] Ropinirole Ropinirole Yes Kaylene TAKE ONE Common HCl HCl [place] TABLET BY [facility] MOUTH - [facility] THREE TIMES [facility] Amlodipine Amlodipine Yes Kaylene take one Common Besylate Besylate [place] tablet by S pirit mouth once - CHI daily [facility] Lopressor Lopressor Yes Kaylene 1 tablet Common [place] with food [facility] Albuterol Albuterol Yes Kaylene 3 ml as C ommon Sulfate Sulfate [place] needed [facility] Trazodone Trazodone Yes Kaylene 3 tabs Co mmon HCl HCl [place] [facility] Gemfibrozil Gemfibrozil Yes Kaylene TAKE 1 Common [place] TABLET BY Spirit MOUTH - [facility]I TWICE [facility] Pantoprazol Pantoprazol Yes Kaylene 1 tablet Common e Sodium e Sodium [place] [facility] Metoprolol Metoprolol No 1{table BID Metoprolol [...] 5 t} Besylate 5 MG MG MG Levothyroxi Levothyroxi No QD Levothyrox ne Sodium ne Sodium ine Sodium 50 MCG 50 MCG 50 MCG Metoprolol Metoprolol No BID Metoprolol Tartrate 50 Tartrate 50 Tartrate MG MG 50 MG Ondansetron Ondansetron No Ondansetro HCl 8 MG HCl 8 MG n HCl 8 MG Gemfibrozil Gemfibrozil No Gemfibrozi 600 MG 600 MG l 600 MG Vitamin D3 Vitamin D3 No 1{capsu QD Vitamin D3 1000 UNIT 1000 UNIT le} 1000 UNIT Trelegy Trelegy No Trelegy Ellipta Ellipta Ellipta 100-62.5-25 100-62.5-25 100-62.5-2 MCG/INH MCG/INH 5 MCG/INH Pantoprazol Pantoprazol No Pantoprazo e Sodium 40 e Sodium 40 le Sodium MG MG 40 MG Aspirin Aspirin No 1{table Aspirin Adult Low Adult Low t} Adult Low Strength 81 Strength 81 Strength MG MG 81 MG Albuterol Albuterol No 3{ml_as Albuterol Sulfate Sulfate _needed Sulfate (2.5 (2.5 } (2.5 MG/3ML) MG/3ML) MG/3ML) 0.083% 0.083% 0.083% rOPINIRole rOPINIRole No rOPINIRole HCl 0.5 MG HCl 0.5 MG HCl 0.5 MG traZODone traZODone No traZODone HCl 50 MG HCl 50 MG HCl 50 MG SEROquel SEROquel No 1{table QD SEROquel 200 MG 200 MG t} 200 MG Cymbalta 60 Cymbalta 60 No 1{capsu QD Cymbalta MG MG le} 60 MG amLODIPine amLODIPine No QD amLODIPine Besylate 5 Besylate 5 Besylate 5 MG MG MG Ventolin Ventolin No Ventolin HFA HFA HFA 108MCG/A 108MCG/A 108MCG/A Immunizations Ordered Immunization Filled Immunization Date Status Commen ts Source Name Name FLUZONE HIGH DOSE FLUZONE HIGH DOSE 2020-06-01 Completed [facility] OVER 65 OVER 65 11:03:00 - [facility] FLUZONE HIGH DOSE FLUZONE HIGH DOSE 2020-06-01 Completed [facility] OVER 65 OVER 65 11:03:00 - [facility] FLUZONE HIGH DOSE FLUZONE HIGH DOSE 2020-06-01 Completed [facility] OVER 65 OVER 65 11:03:00 - [facility] FLUZONE HIGH DOSE FLUZONE HIGH DOSE 2020-06-01 Completed [facility] OVER 65 OVER 65 11:03:00 - [facility] FLUZONE HIGH DOSE FLUZONE HIGH DOSE 2020-06-01 Completed [facility] OVER 65 OVER 65 11:03:00 - [facility] FLUZONE HIGH DOSE FLUZONE HIGH DOSE 2020-06-01 Completed [facility] OVER 65 OVER 65 11:03:00 - [facility] FLUZONE HIGH DOSE FLUZONE HIGH DOSE 2020-06-01 Completed [facility] OVER 65 OVER 65 11:03:00 - [facility] FLUZONE HIGH DOSE FLUZONE HIGH DOSE 2020-06-01 Completed [facility] OVER 65 OVER 65 11:03:00 - [facility] FLUZONE HIGH DOSE FLUZONE HIGH DOSE 2020-06-01 Completed [facility] OVER 65 OVER 65 11:03:00 - [facility] FLUZONE HIGH DOSE FLUZONE HIGH DOSE 2020-06-01 Completed [facility] OVER 65 OVER 65 11:03:00 - [facility] FLUZONE HIGH DOSE FLUZONE HIGH DOSE 2020-06-01 Completed [facility] OVER 65 OVER 65 11:03:00 - [facility] FLUZONE HIGH DOSE FLUZONE HIGH DOSE 2020-06-01 Completed [facility] OVER 65 OVER 65 11:03:00 - [facility] FLUZONE HIGH DOSE FLUZONE HIGH DOSE 2020-06-01 Completed [facility] OVER 65 OVER 65 11:03:00 - [facility] FLUZONE HIGH DOSE FLUZONE HIGH DOSE 2020-06-01 Completed [facility] OVER 65 OVER 65 11:03:00 - [facility] FLUZONE HIGH DOSE FLUZONE HIGH DOSE 2020-06-01 Completed [facility] OVER 65 OVER 65 11:03:00 - [facility] FLUZONE HIGH DOSE FLUZONE HIGH DOSE 2020-06-01 Completed [facility] OVER 65 OVER 65 11:03:00 - [facility] FLUZONE HIGH DOSE FLUZONE HIGH DOSE 2020-06-01 Completed [facility] OVER 65 OVER 65 11:03:00 - [facility] Vital Signs Vital Name Observation Time Observation Value Comments Source height 2022-02-23 10:20:00 62 [in_i] [facility] weight 2022-02-23 10:20:00 96 [lb_av] [facility] temperature 2022-02-23 10:20:00 99.0 [degF] [facility] bmi 2022-02-23 10:20:00 17.56 kg/m2 [facility] height 2021-10-27 16:20:00 62 [in_i] [facility] weight 2021-10-27 16:20:00 95.8 [lb_av] [facility] temperature 2021-10-27 16:20:00 97.3 [degF] [facility] bmi 2021-10-27 16:20:00 17.52 kg/m2 [facility] oximetry 2021-10-27 16:20:00 98 % [facility] respiratory rate 2021-10-27 16:20:00 18 /min Comm on [facility] blood pressure 2021-10-27 16:20:00 159 mm[Hg] Common [facility] - systolic [facility] blood pressure 2021-10-27 16:20:00 74 mm[Hg] Common [facility] - diastolic [facility] height 2021-06-01 08:20:00 62 [in_i] [facility] weight 2021-06-01 08:20:00 89.4 [lb_av] Common [facility] temperature 2021-06-01 08:20:00 97.9 [degF] Common [facility] bmi 2021-06-01 08:20:00 16.35 kg/m2 Common [facility] oximetry 2021-06-01 08:20:00 99 % Common [facility] respiratory rate 2021-06-01 08:20:00 16 /min Comm on [facility] blood pressure 2021-06-01 08:20:00 98 mm[Hg] Common [facility] systolic [facility] blood pressure 2021-06-01 08:20:00 54 mm[Hg] Common [facility] diastolic [facility] Procedures This patient has no known procedures. Encounters Start End Encounter Admission Attending Care Care Encounter Source Date/Time Date/Time Type Type Clinicians Facility Department ID 2022-08-23 Outpatient Patterson, STLMLC STLMLC [id number] Common 09:21:01 Jodie [id number] [facility] 2022-08-01 Outpatient Valdez, STLMLC STLMLC [id number] Common 15:10:00 Kaylene [id number] [facility] 2022-07-14 Outpatient [place], STLMLC STLMLC [id number] Common 11:37:00 Kaylene [id number] [facility] 2022-03-03 Outpatient [place], STLMLC STLMLC [id number] Common 08:01:00 Kaylene [facility] 2021-11-03 Outpatient [place], STLMLC STLMLC [id number] Common 09:35:00 Kaylene [facility] 2021-10-27 Outpatient [place], STLMLC STLMLC [id number] Common 17:04:00 Kaylene [facility] 2021-10-25 Outpatient [place], STLMLC STLMLC [id number] Common 11:15:01 Kaylene [facility] 2021-07-20 Outpatient [place], STLMLC STLMLC [id number] Common 14:06:12 Kaylene [id number] [facility] 2021-07-20 Outpatient [place], STLMLC STLMLC [id number] Common 12:10:57 Kaylene [id number] [facility] 2021-07-20 Outpatient [place], STLMLC STLMLC [id number] Common 11:20:37 Kaylene [id number] [facility] 2021-07-20 Outpatient [place], STLMLC STLMLC [id number] Common 11:08:50 Kaylene 93708 [facility] 2021-07-20 Outpatient [place], STLMLC STLMLC [id number] Common 11:00:43 Kaylene [id number] [facility] 2021-07-20 Outpatient [place], STLMLC STLMLC [id number] Common 10:57:27 Kaylene [id number] [facility] 2022-07-12 2022-07-12 (TEL) STLMLC STLMLC [id number] Co mmon 00:00:00 00:00:00 [facility] 2022-03-24 2022-03-24 (TEL) STLMLC STLMLC [id number] Co mmon 00:00:00 00:00:00 [facility] 2022-02-23 2022-02-23 OL DIG E/M STLMLC STLMLC [id number] Common 00:00:00 00:00:00 SVC 11-20 Spir it MIN [facility] 2022-02-23 2022-02-23 (TEL) STLMLC STLMLC [id number] Co mmon 00:00:00 00:00:00 [facility] 2021-10-27 2021-10-27 OFFICE STLMLC STLMLC [id number] Co mmon 00:00:00 00:00:00 VISIT EST Spir it PT LEVEL 3 [facility] 2021-09-19 2021-09-19 (TEL) STLMLC STLMLC [id number] Co mmon 00:00:00 00:00:00 [facility] 2021-07-09 2021-07-09 (TEL) STLMLC STLMLC [id number] Co mmon 00:00:00 00:00:00 [facility] 2021-07-08 2021-07-08 (TEL) STLMLC STLMLC [id number] Co mmon 00:00:00 00:00:00 [facility] 2021-07-08 2021-07-08 (TEL) STLMLC STLMLC [id number] Co mmon 00:00:00 00:00:00 [facility] 2021-07-08 2021-07-08 (TEL) STLMLC STLMLC [id number] Co mmon 00:00:00 00:00:00 [facility] 2021-07-08 2021-07-08 (TEL) STLMLC STLMLC [id number] Co mmon 00:00:00 00:00:00 [facility] 2021-07-08 2021-07-08 (TEL) STLMLC STLMLC [id number] Co mmon 00:00:00 00:00:00 [facility] 2021-07-08 2021-07-08 (TEL) STLMLC STLMLC [id number] Co mmon 00:00:00 00:00:00 [facility] 2021-07-06 2021-07-06 (TEL) STLMLC STLMLC [id number] Co mmon 00:00:00 00:00:00 [facility] 2021-06-01 2021-06-01 OFFICE STLMLC STLMLC [id number] Co mmon 00:00:00 00:00:00 VISIT EST Spir it PT LEVEL 3 [facility] 2021-04-21 2021-04-21 (TEL) STLMLC STLMLC [id number] Co mmon 00:00:00 00:00:00 [facility] 2021-01-25 2021-01-25 Outpatient STLMLC STLMLC [id number] Common 00:00:00 00:00:00 [facility] 2020-12-21 2020-12-21 Outpatient STLMLC STLMLC [id number] Common 00:00:00 00:00:00 [facility] 2020-12-17 2020-12-17 Outpatient STLMLC STLMLC [id number] Common 00:00:00 00:00:00 [facility] 2020-09-15 2020-09-15 Outpatient STLMLC STLMLC [id number] Common 00:00:00 00:00:00 [facility] 2020-08-30 2020-08-30 Outpatient STLMLC STLMLC [id number] Common 00:00:00 00:00:00 [facility] 2020-08-27 2020-08-27 Outpatient STLMLC STLMLC [id number] Common 00:00:00 00:00:00 [facility] 2020-08-26 2020-08-26 Outpatient STLMLC STLMLC [id number] Common 00:00:00 00:00:00 [facility] 2020-06-01 2020-06-01 Outpatient STLMLC STLMLC [id number] Common 00:00:00 00:00:00 [facility] 2019-12-16 2019-12-16 [facility] [id number] Common 09:18:00 09:18:00 [facility] [address] [facility] 2019-11-27 2019-11-27 [facility] [id number] Common 13:00:00 13:00:00 [facility] [address] [facility] 2019-10-29 2019-10-29 Out[facility] [id number] Common 09:20:00 09:20:00 [facility] [address] [facility] 2019-08-26 2019-08-26 Out[facility] [id number] Common 10:00:00 10:00:00 [facility] [address] [facility] 2019-08-14 2019-08-14 Outpatient Luis Fernando Lujan [id number] Common 10:40:00 10:40:[address] [facility] [address] [facility] [address] [facility] 2019-07-09 2019-07-09 Outpatient Luis Fernando Lujan [id number] Common 14:20:00 14:20:[address] [facility] [address] Spir [address] [facility] 2019-06-27 2019-06-27 Outpatient Luis Fernando Lujan [id number] Common 10:20:00 10:20:[address] [facility] [address] Spir [address] [facility] Results This patient has no known results.
[2022-09-25 11:59] LABS: Absolute Lymphocytes (CBC) 1.3 K/uL (0.7-4.9); Hematocrit 39.7 % (36.0-45.0); Lymphocytes % 19.5 % (15.3-44.8); MCV 82.7 fL (80-100); MPV 9.5 fL (7.6-11.3)
[2022-09-25] MEDS ORDERED: Ringers Lactate 1,000 ML IV ONE (12:07)
[2022-09-25] MEDS ORDERED: ONDANSETRON 4 MG/2 ML VIAL ONE ×2 (12:07→14:17)
--- NOTE | 2022-09-25 12:49 | RAD REPORT ---
EXAM DESCRIPTION: CT - Abdomen Pelvis Wo Contrast - 09/25/2022 12:02 pm CLINICAL HISTORY: abdominal pain, vomiting COMPARISON: Chest For Pe Angio dated 05/30/2022; Chest For Pe Angio dated 04/05/2022 TECHNIQUE: Thin cut axial CT imaging of the abdomen and pelvis was performed without IV contrast. Mu ltiplanar reformats were generated and reviewed. All CT scans are performed using dose optimization technique as appropriate and may include automated exposure control or mA/KV adjustment according to patient size. FINDINGS: No suspicious findings in the lung bases. The liver, spleen, and pancreas show no suspicious findings. Gallbladder and biliary tree are also wi thout suspicious finding. Symmetric renal contour, with stable hyperdensity along the renal medulla, could relate to medullary nephrocalcinosis, appears stable. Suspected lateral left renal mid pole 7 millimeter cyst, not well c haracterized. No other suspicious parenchymal findings within limits of noncontrast technique. No brayden dence of radiopaque calculi or hydroureteronephrosis. Markedly dilated proximal small bowel loops, with air-fluid levels. Abrupt transition to nondistended bowel in the right paramidline abdomen, just above the umbilicus, see sagittal image 56 series 203. Distal nondistended small bowel to the level of the ileocecal junction. Mild inflammatory changes thr oughout the mesenteric. No free air, free fluid or inflammatory stranding. No hernia, mass or bulky l ymphadenopathy. 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 This is not significantly changed. The urinary bladder is suboptimally distended limiting evaluation. No suspicious bony findings. IMPRESSION: Findings concerning for small bowel obstruction with abrupt transition to nondistended b owel in the right paramidline abdomen just above the level of the umbilicus. Other incidental findings as above. The findings were communicated to Deshawn Langford on 09/25/2022 at 12:45 hours.
[2022-09-25 12:54] LABS: Albumin 3.1 g/dL (3.4-5.0); Bilirubin Total 0.8 mg/dL (0.2-1.0); Protein, Total 6.9 g/dL (6.4-8.2)
--- NOTE | 2022-09-25 13:52 | ER ---
Nurse's Notes [facility] Name: Louise Raines Age: 72 yrs Sex: Female : 1950 Arrival Date: 09/25/2022 Time: 10:29 Bed 8 Private MD: Diagnosis: Small Bowel Obstruction Presentation: 09/25 10:46 Chief complaint: Patient states: Abd. pain with N/V since Sunday night. Coronavirus ll1 screen: Vaccine status: Patient reports receiving the 2nd dose of the covid vaccine. Client denies travel out of the [place] in the last 14 days. At this time, the client does not indicate any symptoms associated with coronavirus-19. Ebola Screen: Patient denies travel to an Ebola-affected area in the 21 days before illness onset. Initial Sepsis Screen: Does the patient meet any 2 criteria? No. Patient's initial sepsis screen is negative. Does the patient have a suspected source of infection? Yes: Acute abdominal pain. Risk Assessment: Do you want to hurt yourself or someone else? Patient reports no desire to harm self or others. Onset of symptoms was September 22, 2022. 10:46 Method Of Arrival: Wheelchair ll1 10:46 Acuity: JAIME 3 ll1 Historical: - Allergies: 10:44 Adhesives; ll1 10:44 ambien; ll1 10:44 Baclofen; ll1 10:44 Iodinated Contrast Media - IV Dye; ll1 10:44 Iodine; ll1 - PMHx: 10:44 Hypertension; Continuous home O2 \T\ 5L; ulcerative colitis; Hypothyroidism; COPD; ll1 - PSHx: 10:44 Cholecystectomy; colon and rectal sx; stent placed in left arm; Total abdominal ll1 hysterectomy; - Immunization history:: Client reports receiving the 2nd dose of the Covid vaccine. - Social history:: Smoking status: Patient reports the use of cigarette tobacco products, smokes one-half pack cigarettes per day. Screenin:41 [facility] ED Fall Risk Assessment (Adult) History of falling in the last 3 months, ph including since admission No falls in past 3 months (0 pts) Confusion or Disorientation No (0 pts) Intoxicated or Sedated No (0 pts) Impaired Gait No (0 pts) Mobility Assist Device Used No (0 pt) Altered Elimination No (0 pt) Score/Fall Risk Level 0 - 2 = Low Risk Oriented to surroundings, Maintained a safe environment, Hourly rounding (assess needs \T\ fall precautionary measures) done. Abuse screen: Denies threats or abuse. Denies injuries from another. Nutritional screening: No deficits noted. Tuberculosis screening: No symptoms or risk factors identified. Assessment: 11:42 General: Appears in no apparent distress. comfortable, well groomed, Behavior is calm, ph cooperative, appropriate for age. Pain: Complains of pain in right lower quadrant and left lower quadrant. Neuro: Level of Consciousness is awake, alert, obeys commands, Oriented to person, place, time, situation. Cardiovascular: Capillary refill < 3 seconds in bilateral fingers Patient's skin is warm and dry. Respiratory: Airway is patent Respiratory effort is even, unlabored, Respiratory pattern is regular, symmetrical. GI: Abdomen is non-distended, Reports lower abdominal pain, nausea, vomiting, Patient currently denies diarrhea. Derm: Skin is fragile, is thin, Skin is pink, warm \T\ dry. 13:31 Reassessment: Patient appears in no apparent distress at this time. Patient and/or ph family updated on plan of care and expected duration. Pain level reassessed. Patient is alert, oriented x 3, equal unlabored respirations, skin warm/dry/pink. 19:30 General: Appears in no apparent distress. comfortable, well groomed, well developed, pf1 Behavior is calm, cooperative, appropriate for age, quiet. 19:30 Pain: Complains of pain in abdomen Pain currently is 7 out of 10 on a pain scale. Pain pf1 began 2-3 days ago. Neuro: No deficits noted. Level of Consciousness is awake, alert, obeys commands, Oriented to person, place, time, situation. Cardiovascular: No deficits noted. Capillary refill < 3 seconds Patient's skin is warm and dry. Respiratory: Airway is patent Respiratory effort is even, unlabored, Respiratory pattern is regular, symmetrical. GI: Abdomen is non-distended, Reports lower abdominal pain, upper abdominal pain, nausea, vomiting, Patient stated LBM was on Sunday. : No deficits noted. No signs and/or symptoms were reported regarding the genitourinary system. EENT: No deficits noted. No signs and/or symptoms were reported regarding the EENT system. Derm: No deficits noted. Musculoskeletal: No deficits noted. No signs and/or symptoms reported regarding the musculoskeletal system. 19:30 Respiratory: Reports patient stated is on home 02 2LNC. pf1 Vital Signs: 10:46 BP 92 / 54; Pulse 97; Resp 18; Temp 98.1; Pulse Ox 88% on R/A; Weight 40.37 kg; Height ll1 5 ft. 0 in. ; Pain 7/10; 12:17 BP 131 / 60; Pulse 95; Resp 18; Pulse Ox 100% on 3 lpm NC; ph 13:31 BP 137 / 48; Pulse 88; Resp 18; Pulse Ox 98% on 3 lpm NC; ph 14:30 BP 168 / 78; Pulse 87; Resp 18; Pulse Ox 95% 3 lpm ; ph 15:30 BP 142 / 58; Pulse 84; Resp 18; Pulse Ox 94% on 2 lpm NC; ph 10:46 Body Mass Index 17.38 (40.37 kg, 152.4 cm) ll1 10:46 Pain Scale: Adult ll1 ED Course: 10:29 Patient arrived in ED. mr 10:40 Geo Langford PA is PHCP. jmm 10:40 Syed Gallego MD is Attending Physician. jmm 10:48 Triage completed. ll1 10:48 Arm band placed on Patient placed in an exam room, on a stretcher. ll1 11:18 Rowan Newman, RN is Primary Nurse. ph 11:35 Initial lab(s) drawn, by me, sent to lab. First set of blood cultures drawn by me, ph Second set of blood cultures drawn by me. 11:42 Missed attempt(s): 24 gauge in right antecubital area. Bleeding controlled, band aid ph applied, catheter tip intact. 11:44 Patient has correct armband on for positive identification. Bed in low position. Call ph light in reach. Side rails up X2. Pulse ox on. NIBP on. 12:01 Abdomen In Process Unspecified. EDMS 13:49 Donte Gallego MD is Referral Physician. jmm 13:50 Donte Gallego MD is Hospitalizing Provider. jmm 14:48 No provider procedures requiring assistance completed. Patient admitted, IV remains in ph place. Administered Medications: 12:17 Drug: Lactated Ringers Solution IV 1000 ml Route: IV; Rate: 250 ml/hr; Site: right ph forearm; 16:30 Follow up: Response: No adverse reaction; IV Status: Completed infusion; IV Intake: ph 1000ml 12:17 Drug: Ondansetron IVP 4 mg Route: IVP; Site: right forearm; ph 19:27 Follow up: Response: No adverse reaction ph 14:21 Drug: morphine IVP or IV 4 mg Route: IVP; Infused Over: 4 mins; Site: right forearm; ph 14:30 Follow up: Response: No adverse reaction ph Medication: 11:44 VIS not applicable for this client. ph Intake: 16:30 IV: 1000ml; Total: 1000ml. ph Outcome: 13:49 Discharge ordered by MD. tatyana 13:51 Decision to Hospitalize by Provider. antonino 16:30 Admitted to ER Hold. Please see [facility] for further documentation. ph 16:30 Condition: stable 16:30 Instructed on the need for admit. 09/26 14:01 Patient left the ED. ph Signatures: Dispatcher [employer] EDMS Geo Langford PA PA jmm Rivera, Mary mr Hall, Patricia, RN RN Inocencio Carreon RN RN ll1 Susan reis RN RN pf1
--- NOTE | 2022-09-25 13:52 | EDPHYS ---
Physician Documentation [facility] Name: Louise Raines Age: 72 yrs Sex: Female : 1950 Arrival Date: 09/25/2022 Time: 10:29 Bed 8 Private MD: RENETTA Physician Syed Gallego HPI: 09/25 10:52 This 72 yrs old Female presents to ER via Wheelchair with complaints of Vomiting, jmm Fatigue. 10:52 The patient presents to the emergency department with nausea, vomiting, abdominal pain. jmm Onset: The symptoms/episode began/occurred gradually, 2 day(s) ago. Possible causes: unknown. The symptoms are aggravated by nothing. The symptoms are alleviated by nothing. Associated signs and symptoms: Pertinent positives: abdominal pain. The patient has not experienced similar symptoms in the past. Historical: - Allergies: 10:44 Adhesives; ll1 10:44 ambien; ll1 10:44 Baclofen; ll1 10:44 Iodinated Contrast Media - IV Dye; ll1 10:44 Iodine; ll1 - PMHx: 10:44 Hypertension; Continuous home O2 \T\ 5L; ulcerative colitis; Hypothyroidism; COPD; ll1 - PSHx: 10:44 Cholecystectomy; colon and rectal sx; stent placed in left arm; Total abdominal ll1 hysterectomy; - Immunization history:: Client reports receiving the 2nd dose of the Covid vaccine. - Social history:: Smoking status: Patient reports the use of cigarette tobacco products, smokes one-half pack cigarettes per day. ROS: 10:52 Constitutional: Negative for fever, chills, and weight loss, Cardiovascular: Negative jmm for chest pain, palpitations, and edema, Respiratory: Negative for shortness of breath, cough, wheezing, and pleuritic chest pain. 10:52 Abdomen/GI: Positive for abdominal pain, nausea and vomiting. 10:52 All other systems are negative. Exam: 10:52 Constitutional: This is a well developed, well nourished patient who is awake, alert, jmm and in no acute distress. Head/Face: atraumatic. Eyes: EOMI, no conjunctival erythema appreciated ENT: Moist Mucus Membranes Neck: Trachea midline, Supple Chest/axilla: Normal chest wall appearance and motion. Cardiovascular: Regular rate and rhythm. No edema appreciated Respiratory: Normal respirations, no respiratory distress appreciated 10:52 Back: Normal ROM Skin: General appearance color normal MS/ Extremity: Moves all extremities, no obvious deformities appreciated, no edema noted to the lower extremities Neuro: Awake and alert Psych: Behavior is normal, Mood is normal, Patient is cooperative and pleasant 10:52 Abdomen/GI: Inspection: abdomen appears normal, Bowel sounds: normal, Palpation: soft, mild abdominal tenderness, in all quadrants. Vital Signs: 10:46 BP 92 / 54; Pulse 97; Resp 18; Temp 98.1; Pulse Ox 88% on R/A; Weight 40.37 kg; Height ll1 5 ft. 0 in. ; Pain 7/10; 12:17 BP 131 / 60; Pulse 95; Resp 18; Pulse Ox 100% on 3 lpm NC; ph 13:31 BP 137 / 48; Pulse 88; Resp 18; Pulse Ox 98% on 3 lpm NC; ph 14:30 BP 168 / 78; Pulse 87; Resp 18; Pulse Ox 95% 3 lpm ; ph 15:30 BP 142 / 58; Pulse 84; Resp 18; Pulse Ox 94% on 2 lpm NC; ph 10:46 Body Mass Index 17.38 (40.37 kg, 152.4 cm) ll1 10:46 Pain Scale: Adult ll1 MDM: 10:52 Patient medically screened. [facility] 15:07 Differential diagnosis: Bowel obstruction, gastroenteritis, gastritis. Data reviewed: [facility] vital signs, nurses notes, radiologic studies, CT scan. Management of patient was discussed with the following: C[employer] Food Reconditioning Inspector: Dr. Childs. I considered the following discharge prescriptions or medication management in the emergency department Medications were administered in the Emergency Department. See MAR. Counseling: I had a detailed discussion with the patient and/or guardian regarding: the historical points, exam findings, and any diagnostic results supporting the discharge/admit diagnosis, lab results, radiology results, the need for further work-up and treatment in the hospital. 09/25 10:53 Order name: CBC with Diff; Complete Time: 12:00 [facility] 09/25 10:53 Order name: CMP; Complete Time: 12:58 [facility] 09/25 10:53 Order name: Lipase; Complete Time: 12:59 [facility] 09/25 10:53 Order name: Lactate w/ 2H reflex if indic.; Complete Time: 12:13 [facility] 09/25 10:53 Order name: Blood Culture Adult (2); Complete Time: 12:14 [facility] 09/25 17:43 Order name: Phosphorus; Complete Time: 17:48 EDMS 09/25 17:43 Order name: NT PRO-BNP; Complete Time: 17:48 EDMS 09/25 17:43 Order name: Magnesium; Complete Time: 17:48 EDMS 09/26 01:09 Order name: Urinalysis w/ reflexes; Complete Time: 02:57 EDMS 09/26 03:04 Order name: Comprehensive Metabolic Panel; Complete Time: 03:13 EDMS 09/26 03:04 Order name: Uric Acid; Complete Time: 03:13 EDMS 09/26 04:33 Order name: Ur Protein; Complete Time: 08:07 EDMS 09/26 05:19 Order name: Urine Microalbumin/Creatinine; Complete Time: 08:07 EDMS 09/25 11:32 Order name: Abdomen ; Complete Time: 12:59 EDMS 09/26 12:40 Order name: RAD; Complete Time: 12:43 EDPR 09/25 16:22 Order name: CONS Physician Consult EDPR 09/25 10:53 Order name: IV Saline Lock; Complete Time: 12:06 [facility] 09/25 10:53 Order name: Labs collected and sent; Complete Time: 11:41 [facility] Administered Medications: 12:17 Drug: Lactated Ringers Solution IV 1000 ml Route: IV; Rate: 250 ml/hr; Site: right ph forearm; 16:30 Follow up: Response: No adverse reaction; IV Status: Completed infusion; IV Intake: ph 1000ml 12:17 Drug: Ondansetron IVP 4 mg Route: IVP; Site: right forearm; ph 19:27 Follow up: Response: No adverse reaction ph 14:21 Drug: morphine IVP or IV 4 mg Route: IVP; Infused Over: 4 mins; Site: right forearm; ph 14:30 Follow up: Response: No adverse reaction ph Disposition: 09/26 15:04 Co-signature as Attending Physician, Syed Gallego MD I reviewed the patient's care rn provided by the Advanced Practice Provider and agree with the diagnosis and treatment plan. Disposition Summary: 09/25/22 13:51 Hospitalization Ordered Hospitalization Status: Observation [facility] Provider: Donte Gallego Condition: Stable(09/25/22 13:51) tatyana Problem: new jmm Symptoms: are unchanged jmm Bed/Room Type: Standard jm Location: Telemetry/MedSurg (observation)(09/26/22 10:37) bd Room Assignment: 404(09/26/22 10:37) bd Diagnosis - Small Bowel Obstruction jmm Forms: - Medication Reconciliation Form jmm - SBAR form jmm Signatures: Dispatcher [employer] EDMS Simon, Josephine bd Geo Langford PA PA m Syed Gallego MD MD rn Hall, Rowan RN RN Re Chawla RN RN Inocencio Buck RN RN ll1 Mili Rai, PAAlbaC PATrell sb4 Corrections: (The following items were deleted from the chart) 09/25 11:32 10:54 Abdomen Pelvis W Con+CT.RAD.BRZ ordered. EDMS EDMS 13:50 13:49 Home jmm jmm 13:50 13:49 Stable jmm jm 13:50 13:49 Small Bowel Obstruction jmm [facility] 20:45 13:51 Telemetry/MedSurg (observation) [facility] cg 20:45 13:51 jm cg 09/26 10:37 09/25 20:45 [facility] ER HOLD cg bd 09/26 10:37 09/25 20:45 ERHOLD- cg bd
[2022-09-25] MEDS ORDERED: MORPHINE 4 MG/ML SYR ONE (14:12)
[2022-09-25] MEDS ORDERED: FENTANYL CITR 100 MCG/2 ML ONE ×2 (15:53→23:22)
[2022-09-25] MEDS ORDERED: FENTANYL CITR 100 MCG/2 ML IV ONE (15:55)
[2022-09-25] MEDS ORDERED: ACETAMINOPHEN 650MG/RECT SUPP PR PRN (16:21)
[2022-09-25] MEDS ORDERED: SODIUM CHLORIDE 0.9% 10ML INJ IV PRN (16:24)
--- NOTE | 2022-09-25 16:30 | P.HP ---
Certification for Inpatient Patient admitted to: Inpatient With expected LOS: >2 Midnights Patient will require the following post-hospital care: None Practitioner: I am a practitioner with admitting privileges, knowledge of patient current condition, hospital course, and medical plan of care. Services: Services provided to patient in accordance with Admission requirements found in Title 42 Section 412.3 of the Code of Federal Regulations Patient History Date of Service: 09/25/22 Reason for admission: Abdominal pain, nausea and vomiting. History of Present Illness: Patient is a 72-year-old female with a past medical history significant for COPD, chronic respiratory failure hypertension, hypothyroidism, osteoarthritis, depression, anxiety disorder, nicotine dependence, GERD who presents with complaint of nausea vomiting that has been ongoing for the past 3 days. Patient also reports associated signs and symptoms of headache and generalized abdominal pain rated as 8/10 in severity and described as aching quality. Patient denies any other signs and symptoms. Symptoms are aggravated or relieved by nothing. Patient said to present to the hospital due to worsening symptoms. Of note, patient reported that her last bowel movement was 3 days ago. Allergies Iodine and Iodide Containing Produc Allergy (Unknown, Verified 10/30/17 22:35) Hives/Rash adhesive tape Allergy (Verified 10/30/17 22:35) Itching Iodinated Contrast Media Allergy (Verified 12/13/17 23:45) Anaphylaxis zolpidem [From Ambien] Allergy (Verified 10/30/17 22:35) Anaphylaxis Adhesives Allergy (Uncoded 12/13/17 20:04) Unknown Home Medications: Amlodipine [Norvasc*] 5 mg PO DAILY 06/07/18 Aspirin 81 mg PO DAILY 06/07/18 Cholecalciferol (Vitamin D3) [Vitamin D3] 1,000 unit PO DAILY 06/07/18 Levothyroxine Sodium 50 mcg PO DAILY 06/07/18 Metoprolol Tartrate 50 mg PO BID 06/07/18 Ropinirole HCl 0.5 mg PO TID 06/07/18 gemfibroziL [Lopid*] 600 mg PO BID 06/07/18 Albuterol Inhaler [Ventolin Inhaler*] 2 puff IH QIDP PRN 12/17/20 Albuterol Neb [Proventil 0.083% Neb Soln] 2.5 mg IH [id number] PRN #120 amp 04/01/22 Nebulizer 1 each MC TID #1 unit 04/01/22 Sucralfate [Carafate*] 1 gm PO ACHS #30 tab 04/01/22 predniSONE [Deltasone*] 10 mg PO DAILY #30 tab 04/01/22 Pantoprazole [Protonix Tab*] 40 mg PO DAILY 05/31/22 Duloxetine HCl 60 mg PO DAILY 06/07/22 Trazodone [Desyrel*] 100 mg PO BEDTIME 06/07/22 Benzonatate [Tessalon Perle*] 100 mg PO TID PRN #30 cap 06/08/22 Hydrocodone 5/APAP 325 [[place] 5/325*] 1 tab PO Q6H PRN #30 tab 06/08/22 Ipratropium Neb [Atrovent*] 0.5 mg NEB [id number] #60 amp 06/08/22 Melatonin 5 mg PO BEDTIME PRN PRN #30 06/08/22 acetaZOLAMIDE [Diamox*] 250 mg PO DAILY #30 tab 06/08/22 predniSONE [Deltasone*] 10 mg PO BID #20 tab 06/08/22 - Past Medical/Surgical History Diabetic: No -: COPD, oxygen-dependent -: Hypertension -: History of ulcerative colitis -: Arthritis -: GERD -: Hypothyroidism -: Depression with anxiety -: Restless leg syndrome -: History CVA -: Chronic renal disease -: Tobacco abuse -: ABF leg aortic replacement -: Cholecystectomy -: Hysterectomy -: Stent -: Colorectal surgery -: Had a stent placed in the left arm Psychosocial/ Personal History: The patient lives with her sister. She is a . She has 1 child. - Family History Mother -: Hypertension Father Notes: committed suicide - Social History Smoking Status: Current every day smoker Counseled patient to stop smoking for: less than 10 minutes Smoking therapy provided: Yes Patient receptive to therapy: Yes Alcohol use: No CD- Drugs: No Caffeine use: Yes Place of Residence: Home Review of Systems General: Unremarkable Eyes: Unremarkable ENT: Unremarkable Respiratory: Unremarkable Cardiovascular: Unremarkable Gastrointestinal: Nausea, Vomiting, Abdominal Pain Genitourinary: Unremarkable Musculoskeletal: Unremarkable Integumentary: Unremarkable Neurological: Unremarkable Lymphatics: Unremarkable Physical Examination - Physical Exam General: Alert, Oriented x3, Cooperative, Mild distress HEENT: Atraumatic, PERRLA, Mucous membr. moist/pink, EOMI, Sclerae nonicteric Neck: Supple, 2+ carotid pulse no bruit, No LAD, Without JVD or thyroid abnormality Respiratory: Diminished Cardiovascular: No edema, Regular rate/rhythm, Normal S1 S2 Capillary refill: <2 Seconds Gastrointestinal: Normal bowel sounds, Tenderness Musculoskeletal: No clubbing, No erythema, No tenderness Integumentary: No rashes, No breakdown, No significant lesion Neurological: Normal speech, Normal tone, Normal affect Lymphatics: No axilla or inguinal lymphadenopathy - Studies Laboratory Data (last 24 hrs) 09/25/22 11:35: Sodium 133 L, Potassium 4.0, BUN 51 H, Creatinine 2.26 H, Glucose 99, Total Bilirubin 0.8, AST 23, ALT 12 L, Alkaline Phosphatase 64, Lipase 17 09/25/22 11:35: WBC 6.40, Hgb 12.7, Hct 39.7, Plt Count 134 L Assessment and Plan - Plan --SBO. CT imaging indicates Findings concerning for small bowel obstruction with abrupt transition to nondistended bowel in the right paramidline abdomen just above the level of the umbilicus surgeon consulted. Recommends medical management at this time. We will keep patient NPO. Continue IV hydration. --Acute pain. We will manage pain with current pain medication regimen. --- BRADEN on CKD 3A. Nephrology consulted. We will await further recommendations. --Chronic respiratory failure. Patient on home O2 therapy at 2.5 l/min. Continue home medications and O2 therapy.. --Nausea and vomiting. Antiemetics on board. Continue IV hydration. --COPD. Stable. Continue home medications. --GERD. Continue Protonix and Carafate when appropriate. --RLS. Continue home medications when appropriate --Hypertension. Poorly controlled. Continue home medications when appropriate and labetelol prn --Hypothyroidism. Continue Synthroid when appropriate. --Insomnia. Continue home medication when appropriate --Anxiety disorder\depression. Stable. Continue home medications when appropriate. --Nicotine dependence. Patient counseled on tobacco cessation and refuses nicotine patch --DVT prophylaxis with heparin subQ Discharge Plan: Home Plan to discharge in: Greater than 2 days - Advance Directives Does patient have a Living Will: No Does patient have a Durable POA for Healthcare: No - Code Status/Comfort Care Code Status Assessed: Yes Physician Review: Patient Assessed, Agree with Above Assessment and Plan Critical Care: No
[2022-09-25] MEDS: D5 0.9 NS 1,000 ML IV SCH (17:00)
[2022-09-25] MEDS ORDERED: D5 0.9 NS 1,000 ML IV ONE (17:07)
[2022-09-25 17:31] VITALS: BMI 17.4
[2022-09-25 17:42] LABS: Phosphorus 5.2 mg/dL (2.5-4.9)
[2022-09-25 17:43] LABS: Magnesium 2.2 mg/dL (1.6-2.4)
[2022-09-25] MEDS: FENTANYL CITR 100 MCG/2 ML IV PRN (23:19)
[2022-09-26 01:09] LABS: Renal Epithelial <5 /HPF (None Seen); Specific Gravity 1.013 (1.005-1.030); Urine Bacteria None Seen /HPF (<20); Urine Bilirubin NEGATIVE (Negative); Urine Blood Negative (Negative); Urine Clarity Clear (Clear); Urine Color Light-Yellow (Yellow); Urine Glucose NEGATIVE (Negative); Urine Protein NEGATIVE (Negative); Urine RBC <5 /HPF (None Seen); Urine Urobilinogen 1+ (Normal); Urine pH 6.5 (5.0-7.0)
[2022-09-26 02:53] LABS: Albumin 2.7 g/dL (3.4-5.0); Bilirubin Total 0.9 mg/dL (0.2-1.0); Potassium 3.4 mEq/L (3.5-5.1); Protein, Total 5.8 g/dL (6.4-8.2); Uric Acid 8.9 mg/dL (2.6-6.0)
[2022-09-26] MEDS ORDERED: FENTANYL CITR 100 MCG/2 ML ONE ×2 (04:23→10:35)
[2022-09-26 04:32] LABS: UR PROTEIN 25.6 mg/dL (<11.9); Urine Protein/Creatinine Ratio 0.52 ratio (<0.15)
[2022-09-26] MEDS ORDERED: ONDANSETRON 4 MG/2 ML VIAL ONE (08:27)
[2022-09-26] MEDS: ONDANSETRON 4 MG/2 ML VIAL IV PRN (08:30)
[2022-09-26] MEDS: PANTOPRAZOLE 40 MG INJ IVP SCH (09:00)
[2022-09-26] MEDS ORDERED: PANTOPRAZOLE 40 MG INJ ONE (10:35)
[2022-09-26] MEDS: FENTANYL CITR 100 MCG/2 ML IV PRN ×3 (10:35→22:06)
--- NOTE | 2022-09-26 12:40 | RAD REPORT ---
EXAM DESCRIPTION: RAD - Abdomen 1 View (KUB) - 09/26/2022 11:21 am CLINICAL HISTORY: f/u SBO COMPARISON: Abdomen 1 View (KUB) dated 12/14/2015; Abdomen Pelvis Wo Contrast dated 09/25/2022 TECHNIQUE: Single AP view of the abdomen. FINDINGS: Relative paucity of bowel gas throughout the abdomen. Mild stool and gaseous content throu ghout the colon. Distended loops of bowel in the left flank and left upper quadrant, may relate to sm all bowel, up to 4.6 centimeter in caliber. . No air-fluid levels, free air, or pneumatosis. No suspi cious calcifications. No significant bony abnormality. IMPRESSION: Distended loops of bowel in the left flank and left upper quadrant which may relate to s mall bowel, again suggestive of bowel obstruction. Paucity of bowel gas elsewhere.
--- NOTE | 2022-09-26 13:05 | P.PN ---
Subjective Date of Service: 09/26/22 Chief Complaint: Abdominal pain, nausea and vomiting. Subjective: No new changes, NPO, Other (HEadache) Patient seen at bedside. Currently denies any episode of vomiting. Patient on antiemetics. Currently complains of headache. Patient reported that she had a small formed stool. Patient reports mild generalized abdominal pain. On O2 therapy. Continue supportive care. <LonnieLeimelina Mims - Last Filed: 09/26/22 13:12> Date of Service: 09/26/22 <Donte Gallego - Last Filed: 09/26/22 16:29> Review of Systems General: Other (maliase ) Eyes: Unremarkable ENT: Unremarkable Respiratory: Shortness of Breath Cardiovascular: Unremarkable Gastrointestinal: Abdominal Pain Genitourinary: Unremarkable Musculoskeletal: Unremarkable Integumentary: Unremarkable Neurological: Other (Headache ) Lymphatics: Unremarkable <LonnieLeimelina Mims - Last Filed: 09/26/22 13:12> Physical Examination - Vital Signs Temperature: 98.0 F Blood Pressure: 146/66 Pulse: 100 Respirations: 18 Pulse Ox (%): 97 - Physical Exam General: Alert, Oriented x3, Cooperative, Mild distress HEENT: Atraumatic, PERRLA, EOMI Neck: Supple, JVD not distended Respiratory: Diminished Cardiovascular: No edema, Regular rate/rhythm, Normal S1 S2, Other Capillary refill: <2 Seconds Gastrointestinal: Normal bowel sounds, Non-distended, Tenderness Musculoskeletal: No clubbing, No contractures, No tenderness Integumentary: No rashes, No breakdown, No significant lesion, Skin breakdown Neurological: Normal speech, Normal tone, Normal affect Lymphatics: No axilla or inguinal lymphadenopathy - Studies Laboratory Data (last 24 hrs) 09/25/22 11:35: Phosphorus 5.2 H, Magnesium 2.2 <Doreen Fleming - Last Filed: 09/26/22 13:12> - Studies Laboratory Data (last 24 hrs) 09/25/22 11:35: Phosphorus 5.2 H, Magnesium 2.2 <Donte Gallego - Last Filed: 09/26/22 16:29> Assessment And Plan - Plan Assessment and plan. --SBO. Abdominal x-ray indicates "Distended loops of bowel in the left flank and left upper quadrant which may relate to small bowel, again suggestive of bowel obstruction. Paucity of bowel gas elsewhere". Patient reported that she had a small formed stool. We will keep patient NPO. Continue IV hydration. Further management per surgeon. --Chronic respiratory failure\\COPD. Stable. Continue home medications and O2 therapy at 2.5 L/min. -- Nausea and vomiting. Antiemetics on board. -- Hypertension. Poorly controlled. Continue current BP meds. --BRADEN. Creatinine improved from 2.26 to 1.27 with IV hydration. We will continue to monitor renal functions. --GERD\\anxiety disorder\\depression\\insomnia\\RLS. Continue home medications when appropriate. --Headache. Tylenol as needed. -- DVT prophylaxis with SCDs. Discharge Plan: Home Plan to discharge in: Greater than 2 days - Code Status/Comfort Care Code Status Assessed: Yes Physician Review: Patient Assessed, Agree with Above Assessment and Plan Critical Care: No <Doreen Fleming - Last Filed: 09/26/22 13:12> Physician Review Additional Text: 09/26/22 16:29 I have personally reviewed the EMR independently, reviewed Hx, exam, and discussed findings with Doreen to formulate the assessment and plan. Reportedly had small BM overnight Problem List n/v, abd pain secondary to SBO BRADEN on CKD Elevated LFTs chronic respiratory failure COPD Acute on chronic respiratory failure HTN Hypothyroidism Osteoarthritis Depression / Anxiety Nicotine dependence GERD CT noted findings concerning for SBO Dr. Childs consulted NPO, IVF Low threshold for NGT Reportedly small BM overnight; possibly distal decompression and SBO unre solved, vs resolving SBO Elevated LFTs Unclear etiology KUB to f/u SBO CT no concerning findings of liver BRADEN on CKD Likely prerenal; improving with IVF Nephrology consulted Resume home meds once able to take PO R. Shar Gallego MD Time Spent Managing PTS Care (In Minutes): 35 <Donte Gallego - Last Filed: 09/26/22 16:29>
[2022-09-26] MEDS: D5 0.9 NS 1,000 ML IV SCH (16:06)
--- NOTE | 2022-09-26 16:44 | P.CNS ---
Date of Consult: 09/26/22 Reason for Consult: BRADEN/ CKD Requesting Physician: lima wright Chief Complaint: Abdominal pain, nausea and vomiting. History of Present Illness: Patient is a 72-year-old female with a past medical history significant for COPD, chronic respiratory failure hypertension, hypothyroidism, osteoarthritis, depression, anxiety disorder, nicotine dependence, GERD who presents with complaint of nausea vomiting that has been ongoing for the past 3 days. Patient also reports associated signs and symptoms of headache and generalized abdominal pain rated as 8/10 in severity and described as aching quality. Patient denies any other signs and symptoms. Symptoms are aggravated or relieved by nothing. Patient said to present to the hospital due to worsening symptoms. Of note, patient reported that her last bowel movement was 3 days ago. 10:52 This 72 yrs old Female presents to ER via Wheelchair with complaints of Vomiting, jmm Fatigue. 10:52 The patient presents to the emergency department with nausea, vomiting, abdominal pain. jmm Onset: The symptoms/episode began/occurred gradually, 2 day(s) ago. Possible causes: unknown. The symptoms are aggravated by nothing. The symptoms are alleviated by nothing. Associated signs and symptoms: Pertinent positives: abdominal pain. The patient has not experienced similar symptoms in the past. Allergies Iodine and Iodide Containing Produc Allergy (Unknown, Verified 10/30/17 22:35) Hives/Rash adhesive tape Allergy (Verified 10/30/17 22:35) Itching Iodinated Contrast Media Allergy (Verified 12/13/17 23:45) Anaphylaxis zolpidem [From Ambien] Allergy (Verified 10/30/17 22:35) Anaphylaxis Adhesives Allergy (Uncoded 12/13/17 20:04) Unknown Home medications list reviewed: Yes Home Medications: Amlodipine [Norvasc*] 5 mg PO DAILY 06/07/18 Aspirin 81 mg PO DAILY 06/07/18 Levothyroxine Sodium 75 mcg PO DAILY 06/07/18 Metoprolol Tartrate 50 mg PO BID 06/07/18 Ropinirole HCl 0.5 mg PO TID 06/07/18 Albuterol Neb [Proventil 0.083% Neb Soln] 2.5 mg IH [id number] PRN #120 amp 04/01/22 Pantoprazole [Protonix Tab*] 40 mg PO DAILY 05/31/22 Duloxetine HCl 60 mg PO DAILY 06/07/22 Trazodone [Desyrel*] 100 mg PO BEDTIME 06/07/22 Ipratropium Neb [Atrovent*] 0.5 mg NEB [id number] #60 amp 06/08/22 - Past Medical/Surgical History Diabetic: No -: COPD, oxygen-dependent -: Hypertension -: History of ulcerative colitis -: Arthritis -: GERD -: Hypothyroidism -: Depression with anxiety -: Restless leg syndrome -: History CVA -: CKD (Dr. Gary) -: Tobacco abuse -: ABF leg aortic replacement -: Cholecystectomy -: Hysterectomy -: Stent -: Colorectal surgery -: Had a stent placed in the left arm Psychosocial/ Personal History: The patient lives with her sister. She is a . She has 1 child. - Family History Mother Medical History: Hypertension Father Notes: committed suicide - Social History Smoking Status: Current every day smoker Alcohol use: No CD- Drugs: No Caffeine use: Yes Place of Residence: Home Review of Systems 10-point ROS is otherwise unremarkable General: Weakness, Malaise Gastrointestinal: Abdominal Pain Physical Examination Temp Pulse Resp BP Pulse Ox 98.0 F 100 H 18 146/66 H 97 09/26/22 13:14 09/26/22 13:14 09/26/22 13:14 09/26/22 13:14 09/26/22 13:14 General: Oriented x3, Cooperative, Mild distress HEENT: Atraumatic Neck: Supple Respiratory: Clear to auscultation bilaterally Cardiovascular: No edema, Regular rate/rhythm Gastrointestinal: Hypoactive, Tenderness Musculoskeletal: No clubbing, No contractures Integumentary: No rashes, No cyanosis Neurological: Normal speech Laboratory Data (last 24 hrs) 09/25/22 11:35: Phosphorus 5.2 H, Magnesium 2.2 Imagings Data: EXAM DESCRIPTION: CT - Abdomen Pelvis Wo Contrast - 09/25/2022 12:02 pm CLINICAL HISTORY: abdominal pain, vomiting COMPARISON: Chest For Pe Angio dated 05/30/2022; Chest For Pe Angio dated 04/05/2022 TECHNIQUE: Thin cut axial CT imaging of the abdomen and pelvis was performed without IV contrast. Multiplanar reformats were generated and reviewed. All CT scans are performed using dose optimization technique as appropriate and may include automated exposure control or mA/KV adjustment according to patient size. FINDINGS: No suspicious findings in the lung bases. The liver, spleen, and pancreas show no suspicious findings. Gallbladder and biliary tree are also without suspicious finding. Symmetric renal contour, with stable hyperdensity along the renal medulla, could relate to medullary nephrocalcinosis, appears stable. Suspected lateral left renal mid pole 7 millimeter cyst, not well characterized. No other suspicious parenchymal findings within limits of noncontrast technique. No evidence of radiopaque calculi or hydroureteronephrosis. Markedly dilated proximal small bowel loops, with air-fluid levels. Abrupt transition to nondistended bowel in the right paramidline abdomen, just above the umbilicus, see sagittal image 56 series 203. Distal nondistended small bowel to the level of the ileocecal junction. Mild inflammatory changes throughout the mesenteric. No free air, free fluid or inflammatory stranding. No hernia, mass or bulky lymphadenopathy. Fusiform aneurysmal dilation of the distal descending thoracic and suprarenal abdominal aorta, with maximum aneurysm diameters 3.6 x 3.4 centimeter. This is not significantly changed. The urinary bladder is suboptimally distended limiting evaluation. No suspicious bony findings. IMPRESSION: Findings concerning for small bowel obstruction with abrupt transit ion to nondistended bowel in the right paramidline abdomen just above the level of the umbilicus. Other incidental findings as above. EXAM DESCRIPTION: RAD - Abdomen 1 View (KUB) - 09/26/2022 11:21 am CLINICAL HISTORY: f/u SBO COMPARISON: Abdomen 1 View (KUB) dated 12/14/2015; Abdomen Pelvis Wo Contrast dated 09/25/2022 TECHNIQUE: Single AP view of the abdomen. FINDINGS: Relative paucity of bowel gas throughout the abdomen. Mild stool and gaseous content throughout the colon. Distended loops of bowel in the left flank and left upper quadrant, may relate to small bowel, up to 4.6 centimeter in caliber. . No air-fluid levels, free air, or pneumatosis. No suspicious calcifications. No significant bony abnormality. IMPRESSION: Distended loops of bowel in the left flank and left upper quadrant which may relate to small bowel, again suggestive of bowel obstruction. Paucity of bowel gas elsewhere. Conclusions/Impression: Stage II BRADEN likely due to hypovolemia CKD III -No NSAIDs -Continue IVF Hyponatremia -Continue IVF with NS Hypokalemia -Replete with IV potassium Metabolic Alkalosis in the setting of COPD -Replete potassium HTN with CKD -Metoprolol IV q6h -Pain control AAA 3.6cm -Consider statin Cigarette smoker -Recommend cessation SBO -NPO -Follow up with surgery Thank you kindly for the consultation
[2022-09-26] MEDS ORDERED: KCL 20 MEQ/100 mL IVPB 20 MEQ/100 ML BAG IV SCH (17:00)
[2022-09-26] MEDS: METOPROLOL TARTRATE 5 MG/5 ML INJ IV SCH ×2 (17:25→22:39)
[2022-09-26] MEDS: LABETALOL 20 MG/4ML SYRINGE IV PRN (17:49)
[2022-09-26] MEDS ORDERED: DIPHENHYDRAMINE 50 MG/ML VIAL IV ONE (22:16)
[2022-09-27] MEDS: LABETALOL 20 MG/4ML SYRINGE IV PRN ×2 (01:12→11:44)
[2022-09-27] MEDS: FENTANYL CITR 100 MCG/2 ML IV PRN ×4 (04:32→22:59)
[2022-09-27] MEDS: METOPROLOL TARTRATE 5 MG/5 ML INJ IV SCH ×5 (04:33→20:19)
--- NOTE | 2022-09-27 07:50 | RAD REPORT ---
EXAM DESCRIPTION: RAD - Abdomen 1 View (KUB) - 09/27/2022 5:34 am CLINICAL HISTORY: Abdomen pain FINDINGS: Dilated small bowel loops have become more organized. Mild to moderate dilatation. Diminished air within the colon. These findings are compatible with worsening small bowel obstruction
[2022-09-27] MEDS: PANTOPRAZOLE 40 MG INJ IVP SCH (08:10)
[2022-09-27] MEDS: D5 0.9 NS 1,000 ML IV SCH ×3 (08:11→12:06)
[2022-09-27 09:11] LABS: Absolute Lymphocytes (CBC) 0.8 K/uL (0.7-4.9); Hematocrit 34.8 % (36.0-45.0); Lymphocytes % 20.5 % (15.3-44.8); MCV 83.8 fL (80-100); MPV 10.1 fL (7.6-11.3); RBC Red Blood Cell Count 4.15 M/uL (3.86-4.86)
[2022-09-27 09:13] LABS: Albumin 2.5 g/dL (3.4-5.0); Bilirubin Total 0.5 mg/dL (0.2-1.0); Phosphorus 2.5 mg/dL (2.5-4.9); Potassium 3.9 mEq/L (3.5-5.1); Protein, Total 5.6 g/dL (6.4-8.2)
[2022-09-27] MEDS: ONDANSETRON 4 MG/2 ML VIAL IV PRN ×2 (11:47→22:59)
--- NOTE | 2022-09-27 12:11 | P.PN ---
Nephrology note (S) Pt reports passing some gas and has had a BM, abd pain mild, no current nausea. (O) Vitals reviewed in the EMR PE General: NAD, anxious HEENT: Atraumatic, sclera anicteric, LFNC Neck: Supple Respiratory: b/l air entry without rhonchi Cardiovascular: No edema, Regular rate/rhythm Gastrointestinal: Hypoactive BS, soft, mild distention Musculoskeletal: Thin, muscle mass loss Integumentary: No rashes, No cyanosis Neurological: Normal speech, awake, alert Laboratory Data (last 24 hrs) Reviewed in the EMR A/P) Stage II BRADEN 2nd to vol depletion/fluid shifts with SBO -Resolved with Cr level normalizing, will lower IVF rate Metabolic Alkalosis -Stable SBO -Management per IM/surgery Randell Montanez MD, BOBBY
[2022-09-27] MEDS ORDERED: DEXTROSE 10%-WATER 500 ML IV SCH (16:00)
--- NOTE | 2022-09-27 16:35 | P.PN ---
Subjective Date of Service: 09/27/22 Chief Complaint: Abdominal pain, nausea and vomiting. Patient is still complaining of abdominal pain. No flatus, No vomiting. No fever. Physical Examination - Vital Signs Temperature: 97.7 F Blood Pressure: 171/72 Pulse: 96 Respirations: 18 Pulse Ox (%): 96 Assessment And Plan - Plan Physical Exam General: Alert, Oriented x3, Cooperative, Mild distress Neck: JVD not distended Respiratory: Diminished Cardiovascular: No edema, Regular rate/rhythm, Normal S1 S2, Other Gastrointestinal: Normal bowel sounds, Non-distended, Tenderness, no guarding, rebound tenderness. Musculoskeletal: No clubbing, No contractures, No tenderness Integumentary: No rashes, No breakdown, No significant lesion. Neurological: Normal speech, Normal tone, Normal affect Assessment And Plan - Plan Assessment and plan. --SBO. Abdominal x-ray indicates "Distended loops of bowel in the left flank and left upper quadrant which may relate to small bowel, again suggestive of bowel obstruction. Paucity of bowel gas elsewhere". Patient reported that she had a small formed stool. We will keep patient NPO. Continue IV hydration. Further management per surgeon. --Chronic respiratory failure\\COPD. Stable. Continue home medications and O2 therapy at 2.5 L/min. -- Nausea and vomiting. Antiemetics on board. -- Hypertension. Poorly controlled. Continue current BP meds. --BRADEN. Creatinine improved from 2.26 to 1.27 with IV hydration. We will continue to monitor renal functions. --GERD\\anxiety disorder\\depression\\insomnia\\RLS. Continue home medications when appropriate. --Headache. Tylenol as needed. -- DVT prophylaxis with SCDs. Diagnosis SBO BRADEN on CKD Elevated LFTs chronic respiratory failure COPD Acute on chronic respiratory failure HTN Hypothyroidism Osteoarthritis Depression / Anxiety Nicotine dependence GERD Plan: SBO CT noted findings concerning for SBO Dr. Childs is following. No significant improvement over the past 24 hours. Repeat KUB shows significant bowel dilatation consistent with small bowel obstruction Keep NPO, IVF Dr. Childs is considering surgery tomorrow if no improvement. Elevated LFTs Unclear etiology LFTs fluctuating. AST and ALT normal today No CT findings of liver. Continue to monitor. BRADEN on CKD Likely prerenal. BRADEN resolved with IV fluid. Nephrology is following. Hypertension Hydralazine IV as needed. Hypothyroidism We will start equivalent dose IV Synthroid and then transition to home dose Synthroid once small bowel obstruction is resolved.
[2022-09-28] MEDS: METOPROLOL TARTRATE 5 MG/5 ML INJ IV SCH ×5 (00:48→18:12)
[2022-09-28] MEDS: D5 0.9 NS 1,000 ML IV SCH ×2 (01:52→21:26)
[2022-09-28] MEDS: FENTANYL CITR 100 MCG/2 ML IV PRN ×2 (03:32→09:44)
[2022-09-28] MEDS ORDERED: LEVOTHYROXINE SODIUM 100 MCG VIAL IV SCH (06:00)
[2022-09-28 06:12] LABS: Absolute Lymphocytes (CBC) 0.8 K/uL (0.7-4.9); Hematocrit 32.2 % (36.0-45.0); Lymphocytes % 23.3 % (15.3-44.8); MCV 84.1 fL (80-100); MPV 9.7 fL (7.6-11.3); RBC Red Blood Cell Count 3.82 M/uL (3.86-4.86)
[2022-09-28 06:44] LABS: Albumin 2.4 g/dL (3.4-5.0); Bilirubin Total 0.5 mg/dL (0.2-1.0); Magnesium 1.8 mg/dL (1.6-2.4); Phosphorus 4.1 mg/dL (2.5-4.9); Potassium 3.1 mEq/L (3.5-5.1); Protein, Total 5.1 g/dL (6.4-8.2)
--- NOTE | 2022-09-28 08:24 | RAD REPORT ---
EXAM DESCRIPTION: RAD - Abdomen 1 View (KUB) - 09/28/2022 5:22 am CLINICAL HISTORY: SBO COMPARISON: Abdomen radiographs 09/27/2022 and 09/26/2022 TECHNIQUE: Single AP view of the abdomen. FINDINGS: Mild improvement of small bowel dilation. No air-fluid levels or evidence of pneumatosis. No suspicious calcifications. No significant bony abnormality. IMPRESSION: Mild improvement of small bowel dilation.
[2022-09-28] MEDS: PANTOPRAZOLE 40 MG INJ IVP SCH (08:43)
[2022-09-28] MEDS: ONDANSETRON 4 MG/2 ML VIAL IV PRN ×2 (09:44→16:12)
[2022-09-28] MEDS ORDERED: BUPIVACAINE 0.25% PF 30 ML VIAL ONE (09:47)
[2022-09-28] MEDS: LORazepam 2 MG/ML VIAL IV ONE ×2 (10:39→10:45)
[2022-09-28] MEDS ORDERED: Ringers Lactate 1,000 ML IV ONE (11:01)
[2022-09-28] MEDS ORDERED: SUCCINYLCHOLINE 20 MG/ML (10 ML) IV ONE (11:13)
[2022-09-28] MEDS ORDERED: FENTANYL CITR 100 MCG/2 ML ONE (11:14)
[2022-09-28] MEDS ORDERED: propofoL 200 MG/20 ML VIAL IV ONE (11:14)
[2022-09-28] MEDS ORDERED: ROCURONIUM 50 MG/5 ML VIAL IV ONE (11:15)
[2022-09-28] MEDS ORDERED: MIDAZOLAM HCL 2 MG/2 ML INJ ONE (11:15)
[2022-09-28] MEDS ORDERED: ONDANSETRON 4 MG/2 ML VIAL ONE ×2 (11:17→13:39)
[2022-09-28] MEDS ORDERED: NS 0.9% VIAL 20 ML ONE (11:26)
[2022-09-28] MEDS ORDERED: Phenylephrine HCl 10 MG/ML 1 ML VIAL ONE (11:26)
[2022-09-28] MEDS ORDERED: CEFAZOLIN SODIUM 1 GM/VIAL ONE (11:33)
[2022-09-28] MEDS ORDERED: ESMOLOL HCL 10 ML IV ONE (13:04)
[2022-09-28] MEDS ORDERED: GLYCOPYRROLATE 0.2 MG/ML SYR ONE ×2 (13:05)
[2022-09-28] MEDS ORDERED: NEOSTIGMINE 1 MG/ML -10 ML VIAL ONE (13:06)
--- NOTE | 2022-09-28 13:16 | P.OP ---
Preoperative diagnosis: Small Bowel Obstruction Postoperative diagnosis: Small Bowel Obstruction Primary procedure: Exploratory Laparotomy with small bowel resection Anesthesia: GETA + Local Estimated blood loss: <50cc Specimen: Small bowel Findings: mid small bowel adhesion causing sticture Transferred to: Recovery Room Condition: Good
[2022-09-28] MEDS: MORPHINE 4 MG/ML SYR ONE ×2 (13:35→13:40)
[2022-09-28] MEDS: HYDROMORPHONE HCL 1 MG/ML INJ ONE ×4 (13:50→14:10)
[2022-09-28] MEDS: Levofloxacin500mg IV 500 MG/100 ML BAG IV SCH (14:00)
[2022-09-28] MEDS ORDERED: KETOROLAC 30 MG/ML INJ ONE (14:07)
[2022-09-28] MEDS ORDERED: HYDROMORPHONE HCL 1 MG/ML INJ ONE (14:28)
[2022-09-28] MEDS ORDERED: PROMETHAZINE INJ 25 MG/ML AMP ONE (14:31)
--- NOTE | 2022-09-28 14:33 | OP ---
Date of Procedure: 09/28/2022 Surgeon: Te Childs MD, Brief History Of Present Illness: Patient is a 72-year-old female with multiple surgical issues and multiple abdominal surgeries before in the past, with multiple laparotomies, who presents to the [facility] with a small bowel obstruction. She attempted nonoperative management, however, she continued t o have pain. She had small bowel movements but this has not improved her pain or symptoms. She cont inued to have bloating, distention, pain, and non-progression. As such, she was deemed appropriate f or operative intervention today. Patient did not want to entertain surgical intervention and thus sh e did not progress after several days, and as such, we decided to proceed at this point. Preoperative Diagnosis: Small bowel obstruction. Postoperative Diagnosis: Small bowel obstruction. Procedure Performed: Exploratory laparotomy with small bowel resection. Anesthesia: General endotracheal plus local. Estimated Fluid Loss: 50 cc. Specimen: Small bowel. Findings: Mid small bowel adhesion causing stricture and significant ascites in the patient's abdome n as well as multiple pelvic adhesions. Disposition: Patient transferred to recovery room in good condition. Procedure In Detail: After informed consent was obtained, patient was brought to the operating room, prepped and draped in the usual sterile fashion. After adequate anesthesia was achieved, I anesthet ized the skin. I then performed a mini-laparotomy incision using a 10 blade down to subcutaneous tis sues, I then dissected down to expose the peritoneum. This was grasped and elevated sharply using Me tzenbaum scissors. No bowel injury was encountered during the procedure. I entered the abdominal co mpartment. At this point, in the intraperitoneal space, a murky inflammatory ascites/inflammatory fl uid was encountered. I opened the abdomen through a mini-laparotomy incision. The bowel was distend ed and a transition point was easily recognizable just to the left of midline. There was a significa nt dense adhesion at this point with stricturing of the small bowel and an obvious transition point h ere. I was able to dissect and excise this adhesion at this point, therefore, freeing up the small b owel. I then ran the entire small bowel from the ligament of Treitz to the ileocecal valve. No denisse tional transition points were encountered or significant bowel concerns was appreciated with the exce ption of the one segment of strictured bowel at the transition point. At this point, I washed out th e abdomen and attempted to inspect the abdomen. The stenosed area appeared to be quite thick and fib loy, and as such, I figured that this would likely be a long-term stenosis, and as such, I opted to resect this segment. I then created a mesenteric window taking out maybe at 3 cm to 4 cm segment of small bowel. At this point, I created mesenteric window using electrocautery MYKEL 60 blue load fired across to both the proximal and distal aspect of the small bowel. LigaSure was used to take the vasc ular mesenteric pedicle down and this was sent off for pathologic examination. At this point, I brou ght the bowel in a [id number] anastomotic fashion, secured the antimesenteric border of the proxima l distal limbs of the small bowel using a 3-0 silk suture, made enterotomies after creating a sterile field with electrocautery, opened the mucosa at this point, inspected the mucosa, found to be pink a nd viable. At this point, I dilated this with a Ani clamp and placed the MYKEL 60 blue load through the proximal distal limbs and laid them in the antimesenteric border and fired the stapler. Once aga in, a nice common channel was created at this point without any additional hemostatic measures requir ed. At this point, I closed the common channel using 2-0 PDS suture with good approximation of tissu es. The distal tip of the small bowel beyond the anastomosis appeared to be somewhat ischemic, and a s such, I opted to fire the MYKEL 60 across the distal aspect of the small bowel taking off an addition al 0.5 cm of small bowel down to the pink viable aspect of small bowel. This was also sent off for p athologic examination. At this point, I secured the bowel with a second layer of Lembert sutures whi ch were 3-0 silk sutures. At this point with good approximation of tissues, I then closed the mesent ilana defect using a 3-0 Vicryl suture in a running fashion with good approximation of tissues. I the n copiously irrigated the abdomen multiple times until completely clear. No leakage of bowel content s was appreciated throughout. The small minimal omentum that the patient had residual was firmly adh esed to the anterior abdominal wall on the left aspect. I draped the residual portions of the anasto mosis and it required some minimal hemostatic maneuvers prior to placement over the anastomosis, at t his point, which was achieved with electrocautery. I then washed the abdomen again. No additional h emostasis was required. I then closed the abdomen using an 0 looped PDS suture in a running fashion with good approximation of the tissues. The patient had a very thin abdominal wall. This was irriga te at this point, and the skin was closed with interrupted alon and a sterile dressing placed ove r top. The patient tolerated the procedure well without evidence of complication and transferred to PACU in good condition. All counts were correct at the end of the case. JAYDEN/LUCIA Voice ID: [id number] Report ID: [id number]
--- NOTE | 2022-09-28 14:36 | RAD REPORT ---
EXAM DESCRIPTION: RAD - Chest Single View - 09/27/2022 11:27 pm CLINICAL HISTORY: 72 years Female picc line placment COMPARISON: None TECHNIQUE: AP view of the chest was obtained. FINDINGS: Cardiac size is within normal limits. Central vessels are not increased. Right peripheral catheter is present with the tip seen at the atriocaval junction. No pneumothorax. Ill-defined airspace opacities lower lungs bilaterally left greater than right. No effusion on right. Possible small effusion on left. Skinfold artifact left hemithorax. IMPRESSION: Right peripheral catheter present with the tips seen in region of atriocaval junction. N o pneumothorax. Atelectatic change versus infiltrate or chronic change lower lungs bilaterally left g reater than right. Electronically signed by: Franca Porter MD 09/27/2022 11:47 PM CDT Due to temporary technical issues with the PACS/Fluency reporting system, reports are being signed by the in house radiologists without review as a courtesy to insure prompt reporting. The interpreting radiologist is fully responsible for the content of the report.
[2022-09-28] MEDS: AA 5%/D20W/ELECTROLYTES-TPN 2,000 ML IV SCH (16:13)
[2022-09-28] MEDS: HYDROMORPHONE HCL 1 MG/ML INJ IV PRN ×3 (16:13→23:38)
--- NOTE | 2022-09-28 16:43 | P.PN ---
Subjective Date of Service: 09/28/22 Chief Complaint: Abdominal pain, nausea and vomiting. Patient complaining of abdominal pain this morning. No flatus, No vomiting. Laparotomy with small bowel resection done for SBO today. Physical Examination - Vital Signs Temperature: 98.0 F Blood Pressure: 119/71 Pulse: 100 Respirations: 18 Pulse Ox (%): 98 Assessment And Plan - Plan Physical Exam General: Alert, Oriented x3, Cooperative, Mild distress Neck: JVD not distended Respiratory: Diminished Cardiovascular: No edema, Regular rate/rhythm, Normal S1 S2, Other Gastrointestinal: Normal bowel sounds, Non-distended, Tenderness, no guarding, rebound tenderness. Musculoskeletal: No clubbing, No contractures, No tenderness Integumentary: No rashes, No breakdown, No significant lesion. Neurological: Normal speech, Normal tone, Normal affect Diagnosis SBO BRADEN on CKD Elevated LFTs chronic respiratory failure COPD Acute on chronic respiratory failure HTN Hypothyroidism Osteoarthritis Depression / Anxiety Nicotine dependence GERD Plan: SBO CT noted findings concerning for SBO No significant improvement with medical treatment. Exploratory laparotomy with small bowel resection done. Dr. Childs is following and managing. Elevated LFTs Unclear etiology LFT normalized. No CT findings of liver disease. BRADEN on CKD Likely prerenal. BRADEN resolved with IV fluid. Nephrology is following. Hypertension Hydralazine IV as needed. Hypothyroidism Resume oral Synthroid once oral intake is resumed.
[2022-09-28] MEDS: METRONIDAZOLE 500mg IVPB 500 MG/100 ML BAG IV SCH (18:05)
[2022-09-28] MEDS: INSULIN -REGULAR HUMAN 50 UNIT/0.5 ML ML SQ SCH ×2 (18:06→20:46)
[2022-09-28] MEDS ORDERED: HYDROCODONE/APAP 7.5/325 MG TAB FT PRN (19:27)
--- NOTE | 2022-09-28 22:10 | P.PN ---
Date of Service: 09/28/22 Vital Signs Temp Pulse Resp BP Pulse Ox 97.1 F 94 H 17 107/53 L 93 09/28/22 20:00 09/28/22 20:00 09/28/22 20:00 09/28/22 20:00 09/28/22 20:00 Medications Acetaminophen (Acetaminophen 650mg/Rect Supp) 650 mg VT Q6H PRN PRN Reason: TEMP > 100.4' F Hydrocodone Bitart/Acetaminophen (Hydrocodone/Apap 7.5/325 Mg Tab) 1 tab FT Q4H PRN PRN Reason: Pain scale 8-10 (Severe) Last Admin: 09/28/22 21:39 Dose: 1 tab Enoxaparin Sodium (Enoxaparin 40 Mg/0.4 Ml) 40 mg SQ DAILY HEATHER Hydromorphone HCl (Hydromorphone Hcl 1 Mg/Ml Inj) 1 mg IV Q4H PRN PRN Reason: Pain scale 5-7 (Moderate) Last Admin: 09/28/22 19:48 Dose: 1 mg Dextrose/Sodium Chloride (D5w Ns 1-Liter Bag) 1,000 mls @ 60 mls/hr IV .[id number] [facility] Last Admin: 09/28/22 01:52 Dose: 1,000 mls Multivitamins 10 ml/ Amino Acids/Electrolytes/ Fat Emulsion Intravenous 2,260 mls @ 70 mls/hr IV M,W,F HEATHER Dextrose (D10w 500 Ml Ivpb) 500 mls @ 0 mls/hr IV .Q0M HEATHER Amino Acids/Electrolytes (Clinimix E 5%-20% Solution) 2,000 mls @ 70 mls/hr IV [id number] HEATHER Last Admin: 09/28/22 16:13 Dose: 2,000 mls Metronidazole/Sodium Chloride (Flagyl 500mg/100 Ml Iv Premix) 500 mg in 100 mls @ 200 mls/hr IV Q6HR [facility]; Protocol Last Admin: 09/28/22 18:05 Dose: 100 mls Levofloxacin/Dextrose (Levaquin 500 Mg/100 Ml Ivpb) 500 mg in 100 mls @ 100 mls/hr IV Q24H [facility]; Protocol Last Admin: 09/28/22 14:00 Dose: Not Given Insulin Human Regular (Insulin -Regular Human 50 Unit/0.5 Ml Ml) 0 unit SQ ACHS HEATHER; Protocol Last Admin: 09/28/22 20:46 Dose: 4 unit Labetalol HCl (Labetalol 20 Mg/4ml Syringe) 10 mg IV Q6H PRN PRN Reason: SBP>160 Last Admin: 09/27/22 11:44 Dose: 10 mg Metoprolol Tartrate (Metoprolol Tartrate 5 Mg/5 Ml Inj) 5 mg IV Q6HR HEATHER Last Admin: 09/28/22 18:12 Dose: 5 mg Ondansetron HCl (Ondansetron 4 Mg/2 Ml Vial) 4 mg IV Q6HP PRN PRN Reason: NAUSEA / VOMITING Last Admin: 09/28/22 16:12 Dose: 4 mg Pantoprazole Sodium (Pantoprazole 40 Mg Inj) 40 mg IVP DAILY [facility]; Protocol Last Admin: 09/28/22 08:43 Dose: 40 mg Sodium Chloride (Sodium Chloride 0.9% 10ml Inj) 10 ml IV UD PRN PRN Reason: Diluant Sodium Chloride (Flush Normal Saline 10 Ml) 10 ml IV BID [facility] Last Admin: 09/28/22 20:46 Dose: 10 ml Microbiology Results 09/25/22 11:35 Blood - Blood Aerobic Blood Culture - Preliminary No growth in 24 hours. 09/25/22 11:35 Blood - Blood Anaerobic Blood Culture - Preliminary No growth in 24 hours. 09/25/22 11:30 Blood - Blood Aerobic Blood Culture - Preliminary No growth in 24 hours. 09/25/22 11:30 Blood - Blood Anaerobic Blood Culture - Preliminary No growth in 24 hours. Assessment/ Plan: Nephrology No dyspnea No chest pain Persistent abdominal pain with malaise No acute events overnight Vitals, medications, blood work and imaging reviewed in the chart. General: Oriented x3, Cooperative, Mild distress HEENT: Atraumatic Neck: Supple Respiratory: Clear to auscultation bilaterally Cardiovascular: No edema, Regular rate/rhythm Gastrointestinal: Hypoactive, Tenderness Musculoskeletal: No clubbing, No contractures Integumentary: No rashes, No cyanosis Neurological: Normal speech Laboratory Data (last 24 hrs) 09/25/22 11:35: Phosphorus 5.2 H, Magnesium 2.2 Imagings Data: EXAM DESCRIPTION: CT - Abdomen Pelvis Wo Contrast - 09/25/2022 12:02 pm CLINICAL HISTORY: abdominal pain, vomiting COMPARISON: Chest For Pe Angio dated 05/30/2022; Chest For Pe Angio dated 04/05/2022 TECHNIQUE: Thin cut axial CT imaging of the abdomen and pelvis was performed without IV contrast. Multiplanar reformats were generated and reviewed. All CT scans are performed using dose optimization technique as appropriate and may include automated exposure control or mA/KV adjustment according to patient size. FINDINGS: No suspicious findings in the lung bases. The liver, spleen, and pancreas show no suspicious findings. Gallbladder and biliary tree are also without suspicious finding. Symmetric renal contour, with stable hyperdensity along the renal medulla, could relate to medullary nephrocalcinosis, appears stable. Suspected lateral left renal mid pole 7 millimeter cyst, not well characterized. No other suspicious parenchymal findings within limits of noncontrast technique. No evidence of radiopaque calculi or hydroureteronephrosis. Markedly dilated proximal small bowel loops, with air-fluid levels. Abrupt transition to nondistended bowel in the right paramidline abdomen, just above the umbilicus, see sagittal image 56 series 203. Distal nondistended small bowel to the level of the ileocecal junction. Mild inflammatory changes throughout the mesenteric. No free air, free fluid or inflammatory stranding. No hernia, mass or bulky lymphadenopathy. Fusiform aneurysmal dilation of the distal descending thoracic and suprarenal abdominal aorta, with maximum aneurysm diameters 3.6 x 3.4 centimeter. This is not significantly changed. The urinary bladder is suboptimally distended limiting evaluation. No suspicious bony findings. IMPRESSION: Findings concerning for small bowel obstruction with abrupt transition to nondistended bowel in the right paramidline abdomen just above the level of the umbilicus. Other incidental findings as above. EXAM DESCRIPTION: RAD - Abdomen 1 View (KUB) - 09/26/2022 11:21 am CLINICAL HISTORY: f/u SBO COMPARISON: Abdomen 1 View (KUB) dated 12/14/2015; Abdomen Pelvis Wo Contrast dated 09/25/2022 TECHNIQUE: Single AP view of the abdomen. FINDINGS: Relative paucity of bowel gas throughout the abdomen. Mild stool and gaseous content throughout the colon. Distended loops of bowel in the left flank and left upper quadrant, may relate to small bowel, up to 4.6 centimeter in caliber. . No air-fluid levels, free air, or pneumatosis. No suspicious calcifications. No significant bony abnormality. IMPRESSION: Distended loops of bowel in the left flank and left upper quadrant which may relate to small bowel, again suggestive of bowel obstruction. Paucity of bowel gas elsewhere. Conclusions/Impression: Stage II BRADEN likely due to hypovolemia CKD III -No NSAIDs -Continue IVF Hyponatremia -Resolved Hypokalemia -Replete with IV potassium Metabolic Alkalosis in the setting of COPD -Replete potassium HTN with CKD -Metoprolol IV q6h -Pain control AAA 3.6cm -Consider statin Cigarette smoker -Recommend cessation SBO -NPO -Plan for exlap -Continue Clinimix
[2022-09-29] MEDS: METRONIDAZOLE 500mg IVPB 500 MG/100 ML BAG IV SCH ×4 (01:07→18:10)
[2022-09-29] MEDS: METOPROLOL TARTRATE 5 MG/5 ML INJ IV SCH ×4 (01:08→18:09)
[2022-09-29] MEDS: HYDROMORPHONE HCL 1 MG/ML INJ IV PRN ×2 (02:39→08:55)
[2022-09-29] MEDS ORDERED: HYDROMORPHONE HCL 1 MG/ML INJ IV ONE (05:28)
[2022-09-29 05:35] LABS: Absolute Lymphocytes (CBC) 0.4 K/uL (0.7-4.9); Lymphocytes % 7.7 % (15.3-44.8); MCV 93.3 fL (80-100); MPV 10.6 fL (7.6-11.3); RBC Red Blood Cell Count 3.75 M/uL (3.86-4.86)
[2022-09-29] MEDS: INSULIN -REGULAR HUMAN 50 UNIT/0.5 ML ML SQ SCH ×4 (07:30→20:30)
[2022-09-29 07:51] LABS: Magnesium 1.6 mg/dL (1.6-2.4); Phosphorus 2.1 mg/dL (2.5-4.9); Potassium 3.4 mEq/L (3.5-5.1)
[2022-09-29] MEDS ORDERED: POTASSIUM PHOS IN 0.9 % NACL 15 MMOL/250 ML BAG IV ONE (08:45)
[2022-09-29] MEDS: PANTOPRAZOLE 40 MG INJ IVP SCH (08:54)
[2022-09-29] MEDS: ONDANSETRON 4 MG/2 ML VIAL IV PRN ×2 (08:54→17:03)
[2022-09-29] MEDS ORDERED: ENOXAPARIN 40 MG/0.4 ML SQ SCH (09:00)
[2022-09-29] MEDS ORDERED: POTASSIUM PHOS 40 MEQ in NA CHLORIDE 0.9% 500 ML IV ONE (09:00)
[2022-09-29] MEDS ORDERED: NALOXONE 0.4 MG/ML VIAL IV PRN (09:29)
[2022-09-29] MEDS ORDERED: HYDROMORPHONE HCL 1 MG/ML INJ IV PRN (12:00)
[2022-09-29] MEDS: HYDROMORPHONE/PCA 10 MG/50 ML SYR IV PRN (12:15)
--- NOTE | 2022-09-29 12:18 | P.PN ---
Nephrology note (S) Pt reports being uncomfortable and in pain, on PPN, NGT present. (O) Vitals reviewed in the EMR PE General: NAD, anxious HEENT: Atraumatic, sclera anicteric, LFNC, NGT Neck: Supple Respiratory: b/l air entry without rhonchi Cardiovascular: No edema, Regular rate/rhythm Gastrointestinal: Hypoactive BS, soft, mild distention, abd binder Musculoskeletal: Thin, muscle mass loss Integumentary: No rashes, No cyanosis Neurological: Normal speech, awake, alert Laboratory Data (last 24 hrs) Reviewed in the EMR A/P) Stage II BRADEN 2nd to vol depletion/fluid shifts with SBO -Resolved with Cr level normalizing, will d/c maintenance IVF as now on Clinimix. Will replete lytes, low normal K, Phos and Mg. Metabolic Alkalosis -Stable/improved SBO -Management per IM/surgery Randell Montanez MD, BOBBY
[2022-09-29] MEDS ORDERED: Magnesium Sulfate 2gm IVPB 2 G/50 ML BAG IV ONE (12:30)
--- NOTE | 2022-09-29 14:38 | RAD REPORT ---
EXAM DESCRIPTION: RAD - Abdomen 1 View (KUB) - 09/29/2022 5:43 am TECHNIQUE: Abdominal radiograph, single view. CLINICAL HISTORY: Pain and distention COMPARISON: None . FINDINGS: There is a dilated loop of small bowel in the midabdomen, measuring 3 cm in diameter, with overall paucity of bowel gas. The nasogastric tube sidehole is in the distal esophagus and should be advanced 5 cm into the stomach. There is left convex curvature of the lumbar spine. . IMPRESSION: Findings may be related to ileus versus partial small bowel obstruction. Nasogastric tube should be advanced 5 cm further into the stomach.. Electronically signed by: Sara Chester MD 09/29/2022 6:15 AM CDT Due to temporary technical issues with the PACS/Fluency reporting system, reports are being signed by the in house radiologists without review as a courtesy to insure prompt reporting. The interpreting radiologist is fully responsible for the content of the report.
[2022-09-29] MEDS ORDERED: HOME MED 1 EA UNK (Duloxetine Hcl [Duloxetine Hcl] 60 MG Capsule.Dr) PO SCH (14:53)
--- NOTE | 2022-09-29 16:01 | P.PN ---
Subjective Date of Service: 09/29/22 Chief Complaint: Abdominal pain, nausea and vomiting. Status post exploratory laparotomy with small bowel resection. Patient still complaining of colicky abdominal pain. No flatus or bowel movement yet. No recorded fever. Physical Examination - Vital Signs Temperature: 97 F Blood Pressure: 139/83 Pulse: 127 Respirations: 17 Pulse Ox (%): 100 Assessment And Plan - Plan Physical Exam General: Alert, Oriented x3, Cooperative, Mild distress HEENT: NG tube to suction. Neck: JVD not distended Respiratory: Diminished Cardiovascular: No edema, Regular rate/rhythm, Normal S1 S2, Other Gastrointestinal: Hypoactive bowel sounds, non-distended, Tenderness, no guarding, rebound tenderness. Integumentary: No rashes, No breakdown.. Neurological: No focal motor deficit, anxious. Diagnosis SBO BRADEN on CKD Elevated LFTs chronic respiratory failure COPD Acute on chronic respiratory failure HTN Hypothyroidism Osteoarthritis Depression / Anxiety Nicotine dependence GERD Plan: SBO CT noted findings concerning for SBO No significant improvement with medical treatment. Exploratory laparotomy with small bowel resection done. Patient still in pain. Symptoms could be related to ileus per Dr. 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 Serial abdominal examination Dr. Childs is following Elevated LFTs Unclear etiology LFT normalized. No CT findings of liver disease. BRADEN on CKD Likely prerenal. BRADEN resolved with IV fluid. Nephrology is following. Hypertension Hydralazine IV as needed. Hypothyroidism Resumed oral Synthroid. Anxiety and depression Resumed home medications. DVT prophylaxis Lovenox.
[2022-09-29] MEDS: Levofloxacin500mg IV 500 MG/100 ML BAG IV SCH (16:36)
[2022-09-29] MEDS: DULOXETINE 30 MG CAP PO SCH (17:02)
[2022-09-29] MEDS: AA 5%/D20W/ELECTROLYTES-TPN 2,000 ML, Lipids 20% 250 ML with MULTIVITAMINS INJ 10 ML IV SCH ×3 (18:10)
--- NOTE | 2022-09-29 20:07 | CON ---
Date of Consultation: 09/26/2022 Brief History Of Present Illness: The patient is a 72-year-old female with a past medical history si gnificant for COPD, chronic respiratory dysfunction, hypertension, hypothyroidism, osteoarthritis, de pression, anxiety, nicotine dependence, GERD, and multiple abdominal surgeries before in the past inc luding a cholecystectomy, hysterectomy, partial colectomy, bowel obstruction surgery before in the [facility] who presents with 3 days of nausea, vomiting, and worsening abdominal pain. The pain was associat ed with headache, generalized abdominal pain, 8/10 in severity. It was aching in quality with a pooja cendo decrescendo type feeling. She had received pain medication in the ER, which gave some improvem ent. She had a bowel movement 3 days prior and has passed very minimal gas. She has had symptoms be fore in the past, but it has been quite a while since she has had this level of pain and symptoms as described above. No sick contacts. No recent travel. No new food exposures. Past Medical History: Significant for COPD, she is oxygen dependent, hypertension, ulcerative coliti s, arthritis, GERD, hypothyroidism, depression, anxiety, restless legs syndrome, CVA, chronic renal d isease, tobacco abuse, and severe peripheral arterial disease. Past Surgical History: Includes an aortobifem graft; cholecystectomy, open; hysterectomy, open; open aortobifem; partial colectomy; left arm endovascular stent placement; and bowel obstruction surgery in the past. Allergies: IODINE, ADHESIVES, AND AMBIEN. Home Medications: Included Norvasc, aspirin, vitamin D, levothyroxine, metoprolol, ropinirole, Lopid , Ventolin inhaler, albuterol nebulizer, Carafate, prednisone, Protonix, duloxetine, trazodone, Khloe laura Perles, [place] 5, ipratropium, Atrovent, melatonin, Diamox, and Deltasone. Family History: Significant for hypertension in the mother. Her father committed suicide. She live s with a sister. She is . She has 1 child. Social History: She continues to smoke tobacco, half a pack to a pack per day every day. She denies alcohol or recreational drug use. Review of Systems: 10-point review of systems other than HPI, she has occasional shortness of breath, but currently does not have any of this. Physical Examination: General: At the time of my examination, her BMI is 16.4, her blood pressure 138/62, heart rate was 1 04, respiratory rate 17, temperature 96.9, and SpO2 98% on 4 L nasal cannula. General: She appears thin and frail, but she is in no acute distress. HEENT: She is normocephalic. Her sclerae were not icteric. Mucous membranes moist. Oropharynx sascha ar. Neck: Supple without JVD. Chest: Normal expansion and excursion. Cardiovascular: Mild tachycardia. Abdomen: Distended with mild global tenderness to palpation. No peritonitis. No rebound. No guard ing. Multiple well-healed surgical scars were evident. Her abdominal wall is quite thin. Extremities: No clubbing, cyanosis, or edema. Skin: Warm and dry. Laboratory Data: White blood cell count of 6.4, hemoglobin 12.7, hematocrit 39.7, platelet count was 134, and neutrophils 65%. Her sodium 133, potassium 4.0, chloride 91, carbon dioxide 34, BUN 51, cr eatinine 2.2, glucose was 99, lactic acid 1.1, phosphorus 5.2, AST 23, ALT 12, alkaline phos is 64, a nd total bilirubin 0.8. Her lipase was 17. She had imaging performed, which included a CT abdomen a nd pelvis on 09/25 officially read as findings concerning for small bowel obstruction with abrupt tra nsition to nondistended bowel in the right paramedian abdomen just above the level of the umbilicus. Additional findings include fusiform aneurysmal dilation of the descending distal thoracic and supra renal abdominal aorta with maximum aneurysm dilation 3.6 x 3.4 cm, not significantly changed. Assessment And Plan: This is a 72-year-old woman who comes in with signs and symptoms of a bowel obs truction, likely due to adhesions: 1.IV fluid hydration. 2.N.p.o. status. 3.Serial abdominal exams. 4.KUB daily. 5.I have explained the risks, benefits, and alternatives of nonoperative versus operative management for small bowel obstruction. We will attempt nonoperative management; however, if she does not prog ress in having improved symptoms, return of bowel function and improvement of pain and resolution of symptoms, we will take her for an exploratory laparotomy. I have explained the risks, benefits, and alternatives of exploratory laparotomy including, but not limited to bleeding, infection, damage to s urrounding tissue, and need for further operative procedure. The patient agreed to proceed as indica te. JAYDEN/LUCIA Voice ID: [id number] Report ID: [id number]
[2022-09-29] MEDS: ROPINIROLE HCL 0.25 MG TAB PO SCH (20:29)
[2022-09-29] MEDS: TRAZODONE 50 MG TABLET PO SCH (20:29)
[2022-09-29] MEDS ORDERED: PROMETHAZINE INJ 25 MG/ML AMP IV ONE (20:33)
[2022-09-29] MEDS ORDERED: HOME MED 1 EA UNK (Ropinirole Hcl [Ropinirole Hcl] 0.5 MG Tablet) PO SCH (21:00)
[2022-09-30] MEDS: METRONIDAZOLE 500mg IVPB 500 MG/100 ML BAG IV SCH ×5 (00:45→23:52)
[2022-09-30] MEDS: METOPROLOL TARTRATE 5 MG/5 ML INJ IV SCH ×5 (00:46→23:53)
[2022-09-30] MEDS: LEVOTHYROXINE SOD 0.075 MG TAB PO SCH (05:51)
[2022-09-30 06:43] LABS: Absolute Lymphocytes (CBC) 0.5 K/uL (0.7-4.9); Hematocrit 29.4 % (36.0-45.0); Lymphocytes % 8.3 % (15.3-44.8); MCV 84.1 fL (80-100); MPV 10.1 fL (7.6-11.3)
[2022-09-30 07:09] LABS: Magnesium 2.2 mg/dL (1.6-2.4); Phosphorus 1.7 mg/dL (2.5-4.9)
[2022-09-30] MEDS: INSULIN -REGULAR HUMAN 50 UNIT/0.5 ML ML SQ SCH ×4 (07:30→21:00)
[2022-09-30] MEDS: ROPINIROLE HCL 0.25 MG TAB PO SCH ×3 (07:44→20:32)
[2022-09-30] MEDS: PANTOPRAZOLE 40 MG INJ IVP SCH (07:44)
[2022-09-30 08:40] LABS: Blood Morphology Comment NOTED (NOT SEEN); Dohle Bodies PRESENT; Platelet Estimate DECR; Toxic Granulation PRESENT
[2022-09-30 08:41] LABS: Basophilic Stippling 1+; Rouleau NOTED
[2022-09-30] MEDS ORDERED: POTASSIUM PHOS IN 0.9 % NACL 15 MMOL/250 ML BAG IV ONE (09:00)
[2022-09-30] MEDS ORDERED: D5 0.45 NS 1,000 ML IV ONE (09:30)
--- NOTE | 2022-09-30 11:08 | P.PN ---
Subjective Date of Service: 09/30/22 Chief Complaint: Abdominal pain, nausea and vomiting. Subjective: Improving (Patient pain improved, no bowel function, no nausea.) Physical Examination - Vital Signs Temperature: 97.9 F Blood Pressure: 133/62 Pulse: 105 Respirations: 20 Pulse Ox (%): 97 - Physical Exam General: Alert, In no apparent distress, Cooperative Respiratory: Diminished Cardiovascular: Regular rate/rhythm Gastrointestinal: Other (soft, ,mild appropriate TTP, mild distention, no peritonitis, binder not in place) Assessment And Plan - Current Problems (Diagnosis) (1) Small bowel obstruction due to postoperative adhesions Current Visit: Yes Status: Acute Plan: Patient is a 72 year old woman who presents s/p exploratory laparotomy with small bowel resection and primary anastamosis on 09/28/2022 Gen / Neuro: 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
[2022-09-30] MEDS: ONDANSETRON 4 MG/2 ML VIAL IV PRN (11:47)
[2022-09-30] MEDS: KCL 20 MEQ/100 mL IVPB 20 MEQ/100 ML BAG IV SCH ×2 (11:52→14:48)
--- NOTE | 2022-09-30 12:34 | P.PN ---
Subjective Date of Service: 09/30/22 Chief Complaint: Abdominal pain, nausea and vomiting. Patient states her abdominal pain is better today. No flatus or bowel movement yet. No recorded fever. Physical Examination - Vital Signs Temperature: 97.9 F Blood Pressure: 133/62 Pulse: 105 Respirations: 20 Pulse Ox (%): 97 - Studies Microbiology Data (last 24 hrs): 09/25/22 11:35 Blood - Blood Aerobic Blood Culture - Final No growth in 5 days. 09/25/22 11:35 Blood - Blood Anaerobic Blood Culture - Final No growth in 5 days. 09/25/22 11:30 Blood - Blood Aerobic Blood Culture - Final No growth in 5 days. 09/25/22 11:30 Blood - Blood Anaerobic Blood Culture - Final No growth in 5 days. Assessment And Plan - Plan Physical Exam General: Alert, Oriented x3, Cooperative, Mild distress HEENT: NG tube to suction. Neck: JVD not distended Respiratory: Diminished Cardiovascular: No edema, Regular rate/rhythm, Normal S1 S2, Other Gastrointestinal: Hypoactive bowel sounds, non-distended, Tenderness, no guarding, rebound tenderness. Integumentary: No rashes, No breakdown.. Neurological: No focal motor deficit, anxious. Diagnosis SBO BRADEN on CKD Elevated LFTs chronic respiratory failure COPD Acute on chronic respiratory failure HTN Hypothyroidism Osteoarthritis Depression / Anxiety Nicotine dependence GERD Plan: SBO CT noted findings concerning for SBO No significant improvement with medical treatment. Exploratory laparotomy with small bowel resection done. Pain is better today. 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 On TPN. Monitor and optimize electrolytes. Monitoring for return of bowel function. Dr. Childs is following Elevated LFTs LFT normalized. No CT findings of liver disease. BRADEN on CKD Likely prerenal. BRADEN resolved with IV fluid. Nephrology is following. Hypertension Hydralazine IV as needed. Hypothyroidism Continue home dose oral Synthroid. Anxiety and depression Resumed home medications. DVT prophylaxis Lovenox.
[2022-09-30] MEDS: Levofloxacin500mg IV 500 MG/100 ML BAG IV SCH (13:56)
--- NOTE | 2022-09-30 15:20 | PN ---
Date of Progress Note: 09/30/2022 Subjective: Patient was seen and examined. She is doing okay. Continues to be on pain pump. She i s on NG suction. Laboratory Data: Showing creatinine of 0.7 and potassium of 3. Other electrolytes are stable. Objective: General: She appears weak, cachectic, and malnourished. HEENT: Atraumatic head. NG tube in place. Abdomen: Bowel sounds were not appreciated. Extremities: Showed no evidence of edema. Current Medications: Have been reviewed in detail. Impression: 1.Acute renal failure secondary to prerenal etiology from poor p.o. intake, improving at this time. 2.Small bowel obstruction. Patient is being managed conservatively. 3.Hypokalemia, likely from poor p.o. intake and NG suction. Continue to replace IV potassium. 4.Metabolic alkalosis, improving. Plan: Patient is overall doing okay. Renal function is improving. Continue to replace potassium an d maintain potassium levels above 3.5 to improve ileus and small bowel obstruction. Renal function i s overall stable, and we will follow along. VV/MODL Voice ID: [id number] Report ID: [id number]
[2022-09-30] MEDS: HYDROMORPHONE/PCA 10 MG/50 ML SYR IV PRN (16:36)
[2022-09-30] MEDS: AA 5%/D20W/ELECTROLYTES-TPN 2,000 ML IV SCH (17:56)
[2022-09-30] MEDS: TRAZODONE 50 MG TABLET PO SCH (20:32)
[2022-10-01] MEDS ORDERED: KCL 20 MEQ/100 mL IVPB 20 MEQ/100 ML BAG IV SCH (04:00)
[2022-10-01 04:58] LABS: Absolute Lymphocytes (CBC) 0.7 K/uL (0.7-4.9); Hematocrit 29.9 % (36.0-45.0)
[2022-10-01 05:02] LABS: Lymphocytes % 9.1 % (15.3-44.8); MCV 84.8 fL (80-100); MPV 9.8 fL (7.6-11.3); RBC Red Blood Cell Count 3.52 M/uL (3.86-4.86)
[2022-10-01 05:10] LABS: Potassium 3.7 mEq/L (3.5-5.1)
[2022-10-01 05:12] LABS: Phosphorus 1.5 mg/dL (2.5-4.9)
[2022-10-01] MEDS ORDERED: POTASSIUM PHOS IN 0.9 % NACL 15 MMOL/250 ML BAG IV ONE ×2 (05:18→09:00)
[2022-10-01] MEDS: METOPROLOL TARTRATE 5 MG/5 ML INJ IV SCH ×4 (05:54→23:59)
[2022-10-01] MEDS: METRONIDAZOLE 500mg IVPB 500 MG/100 ML BAG IV SCH ×4 (05:54→23:59)
[2022-10-01] MEDS: LEVOTHYROXINE SOD 0.075 MG TAB PO SCH (05:55)
[2022-10-01] MEDS: INSULIN -REGULAR HUMAN 50 UNIT/0.5 ML ML SQ SCH ×4 (07:30→21:15)
[2022-10-01] MEDS: PANTOPRAZOLE 40 MG INJ IVP SCH (07:43)
[2022-10-01] MEDS: DULOXETINE 30 MG CAP PO SCH (07:44)
[2022-10-01] MEDS: ROPINIROLE HCL 0.25 MG TAB PO SCH ×3 (07:44→21:00)
[2022-10-01] MEDS ORDERED: ALBUTEROL 2.5 MG/3 ML NEB SOL IH PRN (08:40)
[2022-10-01] MEDS ORDERED: METOPROLOL TAR 50 MG TAB PO SCH (09:00)
[2022-10-01] MEDS ORDERED: LEVALBUTEROL 1.25 MG/3 ML NEB ONE (09:44)
[2022-10-01] MEDS: LEVALBUTEROL 1.25 MG/3 ML NEB NEB PRN (09:45)
[2022-10-01] MEDS ORDERED: ALBUTEROL 2.5 MG/3 ML NEB SOL NEB PRN (09:55)
[2022-10-01 10:28] LABS: Arterial Blood Carboxyhemoglob 1.3 % (0-1.5); Blood Gas Oxyhemoglobin 76.2 % (94-97); Blood O2 Saturation 78.2 % (92-98.5)
--- NOTE | 2022-10-01 12:08 | RAD REPORT ---
EXAM DESCRIPTION: RADChest Single View10/01/2022 10:48 am CLINICAL HISTORY: sob, wheezing COMPARISON: Abdomen 1 View (KUB) dated 09/29/2022; Abdomen 1 View (KUB) dated 09/28/2022; Chest Single V iew dated 09/27/2022; Abdomen 1 View (KUB) dated 09/27/2022 TECHNIQUE: Portable AP view of the chest. FINDINGS: Right arm PICC common there acute, and left subclavian stent in place. Hyperlucency and hy perinflation. Developing right basilar airspace opacity with suggestion of trace effusion. Left basil ar atelectasis is stable. No pneumothorax or left-sided effusion. The cardiomediastinal contours are unremarkable. IMPRESSION: Developing right basilar airspace opacity with suggestion of trace effusion. Underlying pneumonia should be considered.
--- NOTE | 2022-10-01 12:30 | P.PN ---
Subjective Date of Service: 10/01/22 Chief Complaint: Abdominal pain, nausea and vomiting. Patient noted to be short of breath and wheezing today. She states her abdominal pain is better. No recorded fever. Physical Examination - Vital Signs Temperature: 97.2 F Blood Pressure: 130/91 Pulse: 115 Respirations: 16 Pulse Ox (%): 91 - Studies Microbiology Data (last 24 hrs): 09/25/22 11:35 Blood - Blood Aerobic Blood Culture - Final No growth in 5 days. 09/25/22 11:35 Blood - Blood Anaerobic Blood Culture - Final No growth in 5 days. 09/25/22 11:30 Blood - Blood Aerobic Blood Culture - Final No growth in 5 days. 09/25/22 11:30 Blood - Blood Anaerobic Blood Culture - Final No growth in 5 days. Assessment And Plan - Plan Physical Exam General: Alert, Oriented x3, Cooperative, Mild distress HEENT: NG tube to suction. Neck: JVD not distended Respiratory: Diminished Cardiovascular: No edema, Regular rate/rhythm, Normal S1 S2, Other Gastrointestinal: Hypoactive bowel sounds, non-distended, Tenderness, no guarding, rebound tenderness. Integumentary: No rashes, No breakdown.. Neurological: No focal motor deficit, anxious. Diagnosis SBO BRADEN on CKD Elevated LFTs chronic respiratory failure COPD Acute on chronic respiratory failure HTN Hypothyroidism Osteoarthritis Depression / Anxiety Nicotine dependence GERD COPD exacerbation Plan: SBO CT noted findings concerning for SBO No significant improvement with medical treatment. Exploratory laparotomy with small bowel resection done. Pain is better today. 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 On TPN. Monitor and optimize electrolytes. Monitoring for return of bowel function. Dr. Childs is following. Keep NPO per Dr. Childs. Elevated LFTs LFT normalized. No CT findings of liver disease. BRADEN on CKD Likely prerenal. BRADEN resolved with IV fluid. Nephrology is following. Hypertension/tachycardia Metoprolol IV as needed Hypothyroidism Continue home dose oral Synthroid. Anxiety and depression Ativan IV as needed. Thrombocytopenia Noted gradual drop in platelet count since admit. Same pattern has occurred during previous admit. Concern for HIT. Will use low-dose Eliquis for DVT prophylax. DVT prophylaxis Eliquis COPD exacerbation/acute respiratory failure with hypoxia Resume home bronchodilators. Xopenex to replace albuterol given tachycardia. We will avoid steroid due to delayed wound healing adverse effect. Titrate oxygen.
[2022-10-01] MEDS: IPRATROPIUM BROM 0.5MG/2.5ML NEB SCH ×2 (13:32→19:10)
[2022-10-01] MEDS: Levofloxacin500mg IV 500 MG/100 ML BAG IV SCH (13:42)
[2022-10-01 14:35] LABS: Phosphorus 5.7 mg/dL (2.5-4.9); Potassium 5.7 mEq/L (3.5-5.1)
[2022-10-01] MEDS: AA 5%/D20W/ELECTROLYTES-TPN 2,000 ML IV SCH (17:14)
[2022-10-01] MEDS: ONDANSETRON 4 MG/2 ML VIAL IV PRN (18:16)
[2022-10-01] MEDS: TRAZODONE 50 MG TABLET PO SCH (21:00)
[2022-10-01] MEDS: APIXABAN 2.5 MG TABLET PO SCH (21:00)
[2022-10-02] MEDS: IPRATROPIUM BROM 0.5MG/2.5ML NEB SCH ×4 (01:10→19:48)
[2022-10-02] MEDS: HYDROMORPHONE/PCA 10 MG/50 ML SYR IV PRN (02:41)
[2022-10-02] MEDS: METOPROLOL TARTRATE 5 MG/5 ML INJ IV SCH ×4 (05:48→23:39)
[2022-10-02] MEDS: METRONIDAZOLE 500mg IVPB 500 MG/100 ML BAG IV SCH ×4 (05:49→23:39)
[2022-10-02] MEDS: LEVOTHYROXINE SOD 0.075 MG TAB PO SCH (05:49)
[2022-10-02 07:00] LABS: Absolute Lymphocytes (CBC) 0.7 K/uL (0.7-4.9); Hematocrit 30.2 % (36.0-45.0); Lymphocytes % 8.1 % (15.3-44.8); MCV 85.4 fL (80-100); MPV 10.4 fL (7.6-11.3); RBC Red Blood Cell Count 3.54 M/uL (3.86-4.86)
[2022-10-02 07:04] LABS: Potassium 3.8 mEq/L (3.5-5.1)
[2022-10-02 07:14] LABS: Phosphorus 1.5 mg/dL (2.5-4.9)
[2022-10-02] MEDS ORDERED: POTASSIUM PHOS IN 0.9 % NACL 15 MMOL/250 ML BAG IV ONE ×2 (07:23→15:02)
[2022-10-02] MEDS: PANTOPRAZOLE 40 MG INJ IVP SCH (07:44)
[2022-10-02] MEDS: ROPINIROLE HCL 0.25 MG TAB PO SCH ×3 (07:45→21:00)
[2022-10-02] MEDS: DULOXETINE 30 MG CAP PO SCH (07:45)
[2022-10-02] MEDS: APIXABAN 2.5 MG TABLET PO SCH ×2 (07:45→21:00)
[2022-10-02] MEDS ORDERED: D5 0.45 NS 1,000 ML IV ONE (07:49)
[2022-10-02] MEDS: INSULIN -REGULAR HUMAN 50 UNIT/0.5 ML ML SQ SCH ×4 (09:06→21:12)
[2022-10-02] MEDS ORDERED: NA CHLORIDE 0.9% 1,000 ML IV SCH (10:00)
[2022-10-02] MEDS: LEVALBUTEROL 1.25 MG/3 ML NEB NEB PRN ×3 (10:55→19:48)
[2022-10-02] MEDS: Levofloxacin500mg IV 500 MG/100 ML BAG IV SCH (13:21)
--- NOTE | 2022-10-02 14:43 | P.PN ---
Subjective Date of Service: 10/02/22 Chief Complaint: Abdominal pain, nausea and vomiting. Patient appears to be in mild to moderate respiratory distress. She is wheezing and appears slightly confused. No recorded fever. Physical Examination - Vital Signs Temperature: 97.7 F Blood Pressure: 143/69 Pulse: 117 Respirations: 25 Pulse Ox (%): 93 Assessment And Plan - Plan Physical Exam General: Alert, Oriented x3, Cooperative, Mild respiratory distress, cachectic HEENT: NG tube to suction. Neck: JVD not distended Respiratory: Diminished Cardiovascular: No edema, Regular rate/rhythm, Normal S1 S2, Other Gastrointestinal: Hypoactive bowel sounds, non-distended, Tenderness, no guarding, rebound tenderness. Integumentary: No rashes, No breakdown.. Neurological: No focal motor deficit, anxious. Diagnosis SBO BRADEN on CKD Elevated LFTs chronic respiratory failure COPD Acute on chronic respiratory failure HTN Hypothyroidism Osteoarthritis Depression / Anxiety Nicotine dependence GERD COPD exacerbation Severe protein calorie malnutrition Plan: SBO CT noted findings concerning for SBO No significant improvement with medical treatment. Exploratory laparotomy with small bowel resection done. Pain is better. Discontinue CONTRACT ADMIN. Start hydromorphone IV. NG tube to suction in place Continue TPN. Monitor and optimize electrolytes. Monitoring for return of bowel function. Dr. Childs is following. Keep NPO per Dr. Childs. Patient may be a candidate for LTAC. Elevated LFTs LFT normalized. No CT findings of liver disease. BRADEN on CKD Likely prerenal. BRADEN resolved with IV fluid. Nephrology is following. Hypertension/tachycardia Metoprolol IV as needed Hypothyroidism Continue home dose oral Synthroid. Anxiety and depression Ativan IV as needed. Thrombocytopenia Noted gradual drop in platelet count since admit. Same pattern has occurred during previous admit. Concern for HIT. Will use low-dose Eliquis for DVT prophylax. DVT prophylaxis Eliquis COPD exacerbation/acute respiratory failure with hypoxia Mild to moderate respiratory distress. Small body habitus-high risk for ventilatory issues. BiPAP as needed, maintain NG tube to suction to reduce intestinal insufflation. Continue home bronchodilators. Xopenex to replace albuterol given tachycardia. Avoid steroid due to delayed wound healing adverse effect. Incentive spirometry. Pulmonary consult. Titrate oxygen.
[2022-10-02 14:44] LABS: Phosphorus 1.7 mg/dL (2.5-4.9); Potassium 3.7 mEq/L (3.5-5.1)
[2022-10-02 15:44] LABS: Platelet Estimate DECR
[2022-10-02 15:46] LABS: Blood Morphology Comment NOT SEEN (NOT SEEN)
[2022-10-02] MEDS: HYDROMORPHONE HCL 1 MG/ML INJ IV PRN ×2 (16:47→23:23)
[2022-10-02] MEDS: AA 5%/D20W/ELECTROLYTES-TPN 2,000 ML, Lipids 20% 250 ML with MULTIVITAMINS INJ 10 ML IV SCH ×3 (17:00)
[2022-10-02] MEDS: TRAZODONE 50 MG TABLET PO SCH (21:00)
--- NOTE | 2022-10-02 21:36 | P.PN ---
Date of Service: 10/03/22 Subjective: unable to tolerate NC this morning; put back on BiPAP after ~5 min claims chest pain and SOB is worse today; pain mostly from binder digging into skin constipation ROS: 10 point ROS as noted above, otherwise negative Physical Exam: Gen: Alert, AOx3 HEENT: normal conjunctiva, sclera anicteric; BIPAP in place; NGT in place CV: sinus tachycardia, no edema Pulm: moderately-labored respirations on BiPAP, diminished at bases b/l, FIO2: 35% Abd: soft, non-distended, Hypoactive bowel sounds Vitals reviewed Problem List: SBO now s/p resection and re-anastomosis 09/28 COPD exacerbation; acute on chronic chronic respiratory failure COPD Acute on chronic respiratory failure BRADEN on CKD Elevated LFTs HTN Hypothyroidism Osteoarthritis Depression / Anxiety Nicotine dependence GERD Severe protein calorie malnutrition SBO now s/p resection and re-anastomosis 09/28 ex-lap with small bowel resection done 09/28 Continue TPN. Monitoring for return of bowel function. General surgery consulted - Keep NPO per Dr. Childs Patient may be a candidate for LTAC acute on chronic respiratory failure COPD exacerbation/acute respiratory failure with hypoxia Mild to moderate respiratory distress. Small body habitus-high risk for ventilatory issues BiPAP as needed, maintain NG tube to suction to reduce intestinal insufflation Continue home bronchodilators. Xopenex to replace albuterol given tachycardia Avoid steroid due to delayed wound healing adverse effect Incentive spirometry Pulmonary consulted CXR 10/03 - Right lung base aeration has mildly worsened since 10/01 xray hypoxic, tachycardic, not on DVT prophylaxis; possible PE if no further improvement, low threshold for CTA to r/o PE Sinus tachycardia h/o sinus tachycardia recently HR gets up to 130s NPO, so has not been able to take metoprolol does not appear significantly overloaded CXR with some R sided effusion, not bilateral will discuss further with pulm and cardiology Elevated LFTs LFT normalized CT negative for liver disease BRADEN on CKD prerenal BRADEN resolved with IVF Nephrology consulted Hypertension/tachycardia Metoprolol IV as needed Hypothyroidism Continue home dose oral Synthroid. Anxiety and depression Ativan IV as needed. Thrombocytopenia Noted gradual drop in platelet count since admit. Same pattern has occurred during previous admit. Concern for HIT in the past VTE: Eliquis Code: Full Dispo: ?SNF vs home- 72 hours
[2022-10-03] MEDS: IPRATROPIUM BROM 0.5MG/2.5ML NEB SCH ×4 (02:00→19:55)
[2022-10-03] MEDS: METOPROLOL TARTRATE 5 MG/5 ML INJ IV SCH ×3 (05:46→17:24)
[2022-10-03] MEDS: LEVOTHYROXINE SOD 0.075 MG TAB PO SCH (05:46)
[2022-10-03] MEDS: METRONIDAZOLE 500mg IVPB 500 MG/100 ML BAG IV SCH ×3 (05:46→17:22)
[2022-10-03 06:03] LABS: Absolute Lymphocytes (CBC) 0.7 K/uL (0.7-4.9); Hematocrit 28.3 % (36.0-45.0); Lymphocytes % 10.8 % (15.3-44.8); MCV 85.2 fL (80-100); MPV 9.2 fL (7.6-11.3); RBC Red Blood Cell Count 3.32 M/uL (3.86-4.86)
[2022-10-03 06:14] LABS: Magnesium 1.9 mg/dL (1.6-2.4); Potassium 3.9 mEq/L (3.5-5.1)
[2022-10-03] MEDS: PANTOPRAZOLE 40 MG INJ IVP SCH (07:36)
[2022-10-03] MEDS: DULOXETINE 30 MG CAP PO SCH (07:37)
[2022-10-03] MEDS: ROPINIROLE HCL 0.25 MG TAB PO SCH ×3 (07:37→21:00)
[2022-10-03] MEDS: APIXABAN 2.5 MG TABLET PO SCH (07:37)
[2022-10-03 07:48] LABS: Thyroid Stimulating Hormone 4.84 uIU/mL (0.358-3.740)
[2022-10-03 08:04] LABS: Blood Morphology Comment NOT SEEN (NOT SEEN); Platelet Estimate ADEQ; Platelets, Giant 1+
[2022-10-03] MEDS: LEVALBUTEROL 1.25 MG/3 ML NEB NEB PRN (08:13)
[2022-10-03] MEDS: INSULIN -REGULAR HUMAN 50 UNIT/0.5 ML ML SQ SCH ×4 (08:58→22:11)
[2022-10-03] MEDS ORDERED: POTASSIUM PHOS IN 0.9 % NACL 15 MMOL/250 ML BAG IV ONE (09:00)
--- NOTE | 2022-10-03 09:24 | RAD REPORT ---
EXAM DESCRIPTION: RAD - Chest Single View - 10/03/2022 9:17 am CLINICAL HISTORY: f/u opacity, hypoxia Chest pain. COMPARISON: Chest Single View dated 10/01/2022; Abdomen 1 View (KUB) dated 09/29/2022; Abdomen 1 View (K UB) dated 09/28/2022; Chest Single View dated 09/27/2022 FINDINGS: Portable technique limits examination quality. Moderate right pleural effusion is suspected. Diffuse COPD is present. The heart is upper limit felisha l in size. Enteric tube tip is tip is in the stomach.Right PICC line has tip in the SVC. IMPRESSION: Right lung base aeration has mildly worsened since 10/01/2022.
[2022-10-03] MEDS: HYDROMORPHONE HCL 1 MG/ML INJ IV PRN ×3 (11:29→22:03)
[2022-10-03] MEDS ORDERED: CEFTRIAXONE 1,000 MG in NA CHLORIDE 0.9% 50 ML IVPB SCH (12:00)
--- NOTE | 2022-10-03 12:02 | P.CNS ---
Date of Consult: 10/03/22 Reason for Consult: Respiratory failure patient on BiPAP Chief Complaint: Small bowel obstruction respiratory failure History of Present Illness: Patient is 72 years of age admitted with small bowel obstruction s/p laparotomy lysis of adhesions is developed respiratory distress currently on on the BiPAP very alert responsive Allergies Iodine and Iodide Containing Produc Allergy (Unknown, Verified 10/30/17 22:35) Hives/Rash adhesive tape Allergy (Verified 10/30/17 22:35) Itching Iodinated Contrast Media Allergy (Verified 12/13/17 23:45) Anaphylaxis zolpidem [From Ambien] Allergy (Verified 10/30/17 22:35) Anaphylaxis Adhesives Allergy (Uncoded 12/13/17 20:04) Unknown Home Medications: Amlodipine [Norvasc*] 5 mg PO DAILY 06/07/18 Aspirin 81 mg PO DAILY 06/07/18 Levothyroxine Sodium 75 mcg PO DAILY 06/07/18 Metoprolol Tartrate 50 mg PO BID 06/07/18 Ropinirole HCl 0.5 mg PO TID 06/07/18 Albuterol Neb [Proventil 0.083% Neb Soln] 2.5 mg IH [id number] PRN #120 amp 04/01/22 Pantoprazole [Protonix Tab*] 40 mg PO DAILY 05/31/22 Duloxetine HCl 60 mg PO DAILY 06/07/22 Trazodone [Desyrel*] 100 mg PO BEDTIME 06/07/22 Ipratropium Neb [Atrovent*] 0.5 mg NEB [id number] #60 amp 06/08/22 - Past Medical/Surgical History Diabetic: No -: COPD, oxygen-dependent -: Hypertension -: History of ulcerative colitis -: Arthritis -: GERD -: Hypothyroidism -: Depression with anxiety -: Restless leg syndrome -: History CVA -: CKD (Dr. Gary) -: Tobacco abuse -: ABF leg aortic replacement -: Cholecystectomy -: Hysterectomy -: Stent -: Colorectal surgery -: Had a stent placed in the left arm Psychosocial/ Personal History: The patient lives with her sister. She is a . She has 1 child. - Family History Mother Medical History: Hypertension Father Notes: committed suicide - Social History Smoking Status: Current every day smoker Alcohol use: No CD- Drugs: No Caffeine use: Yes Place of Residence: Home Review of Systems is unable to be obtained Physical Examination Temp Pulse Resp BP Pulse Ox 97.7 F 132 H 24 H 137/97 H 100 10/03/22 08:00 10/03/22 11:28 10/03/22 11:29 10/03/22 11:28 10/03/22 11:29 General: Alert, Cooperative Neck: Supple Respiratory: Clear to auscultation bilaterally, Diminished Cardiovascular: No edema, Normal S1 S2 - Problems (1) Respiratory failure Current Visit: Yes Status: Acute Plan: Patient is 72 years of age is not developed respiratory failure she does have a history of COPD recent blood gases shows hypoxemia hypercarbia patient failed high flow is currently on a BiPAP chemistries lab work reviewed mildly anemic vital signs are stable chest x-ray shows COPD changes with some pleural effusion on the right side continue with scheduled bronchodilators have added Brovana patient is on TPN Qualifiers: Chronicity: acute on chronic
[2022-10-03] MEDS ORDERED: ENOXAPARIN 40 MG/0.4 ML SQ SCH (12:30)
[2022-10-03] MEDS: ARFORMOTEROL TARTRATE 15 MCG/2 ML VIAL.NEB NEB SCH ×2 (12:30→20:00)
[2022-10-03] MEDS ORDERED: METHYLPREDNISOLONE 40 MG INJ IV SCH (12:30)
[2022-10-03] MEDS: FONDAPARINUX SOD 2.5 MG/0.5 ML SQ SCH ×2 (13:00→13:49)
[2022-10-03] MEDS: LEVALBUTEROL 1.25 MG/3 ML NEB NEB SCH ×2 (13:20→19:55)
[2022-10-03 16:39] LABS: Phosphorus 4.1 mg/dL (2.5-4.9); Potassium 5.4 mEq/L (3.5-5.1)
[2022-10-03] MEDS: AA 5%/D20W/ELECTROLYTES-TPN 2,000 ML IV SCH (17:15)
[2022-10-03] MEDS: Levofloxacin 750mg IV 750 MG/150 ML BAG IV SCH (17:24)
[2022-10-03] MEDS: TRAZODONE 50 MG TABLET PO SCH (21:00)
--- NOTE | 2022-10-03 21:11 | P.PN ---
Date of Service: 10/03/22 Vital Signs Temp Pulse Resp BP Pulse Ox 99.7 F 130 H 23 H 150/72 H 100 10/03/22 16:00 10/03/22 17:24 10/03/22 17:30 10/03/22 17:24 10/03/22 17:30 Medications Acetaminophen (Acetaminophen 650mg/Rect Supp) 650 mg IA Q6H PRN PRN Reason: TEMP > 100.4' F Arformoterol Tartrate (Arformoterol Tartrate 15 Mcg/2 Ml Vial.Neb) 15 mcg NEB BIDRESP [facility] Last Admin: 10/03/22 20:00 Dose: Not Given Duloxetine HCl (Duloxetine 30 Mg Cap) 60 mg PO DAILY [facility] Last Admin: 10/03/22 07:37 Dose: Not Given Fondaparinux (Fondaparinux Sod 2.5 Mg/0.5 Ml) 2.5 mg SQ DAILY [facility] Stop: 11/02/22 13:01 Last Admin: 10/03/22 13:49 Dose: 2.5 mg Hydromorphone HCl (Hydromorphone Hcl 1 Mg/Ml Inj) 1 mg IV Q4H PRN PRN Reason: Pain scale 8-10 (Severe) Last Admin: 10/03/22 17:30 Dose: 1 mg Multivitamins 10 ml/ Amino Acids/Electrolytes/ Fat Emulsion Intravenous 2,260 mls @ 70 mls/hr IV M,W,F [facility] Last Admin: 10/02/22 17:00 Dose: 2,260 mls Dextrose (D10w 500 Ml Ivpb) 500 mls @ 0 mls/hr IV .Q0M [facility] Amino Acids/Electrolytes (Clinimix E 5%-20% Solution) 2,000 mls @ 70 mls/hr IV [id number] [facility] Last Admin: 10/03/22 17:15 Dose: 2,000 mls Metronidazole/Sodium Chloride (Flagyl 500mg/100 Ml Iv Premix) 500 mg in 100 mls @ 200 mls/hr IV Q6HR [facility]; Protocol Last Admin: 10/03/22 17:22 Dose: 100 mls Levofloxacin/Dextrose (Levaquin 750 Mg/150 Ml Ivpb (Premix)) 750 mg in 150 mls @ 100 mls/hr IV Q48H [facility] Last Admin: 10/03/22 17:24 Dose: 150 mls Insulin Human Regular (Insulin -Regular Human 50 Unit/0.5 Ml Ml) 0 unit SQ ACHS [facility]; Protocol Last Admin: 10/03/22 16:25 Dose: 6 unit Ipratropium Donnellson (Ipratropium Brom 0.5mg/2.5ml) 0.5 mg NEB [id number] [facility] Last Admin: 10/03/22 19:55 Dose: 0.5 mg Levalbuterol HCl (Levalbuterol 1.25 Mg/3 Ml Neb) 1.25 mg NEB [id number] [facility] Last Admin: 10/03/22 19:55 Dose: 1.25 mg Levothyroxine Sodium (Levothyroxine Sod 0.075 Mg Tab) 0.075 mg PO DAILYAC [facility] Last Admin: 10/03/22 05:46 Dose: Not Given Metoprolol Tartrate (Metoprolol Tartrate 5 Mg/5 Ml Inj) 5 mg IV Q6HR [facility] Last Admin: 10/03/22 17:24 Dose: 5 mg Naloxone HCl (Naloxone 0.4 Mg/Ml Vial) 0.4 mg IV PRN PRN PRN Reason: Resp <8, Stuporous/Unarousable Ondansetron HCl (Ondansetron 4 Mg/2 Ml Vial) 4 mg IV Q6HP PRN PRN Reason: NAUSEA / VOMITING Last Admin: 10/01/22 18:16 Dose: 4 mg Pantoprazole Sodium (Pantoprazole 40 Mg Inj) 40 mg IVP DAILY [facility]; Protocol Last Admin: 10/03/22 07:36 Dose: 40 mg Ropinirole HCl (Ropinirole Hcl 0.25 Mg Tab) 0.5 mg PO TID [facility] Last Admin: 10/03/22 13:57 Dose: Not Given Sodium Chloride (Sodium Chloride 0.9% 10ml Inj) 10 ml IV UD PRN PRN Reason: Diluant Sodium Chloride (Flush Normal Saline 10 Ml) 10 ml IV BID [facility] Last Admin: 10/03/22 07:37 Dose: 10 ml Trazodone HCl (Trazodone 50 Mg Tablet) 100 mg PO BEDTIME [facility] Last Admin: 10/02/22 21:00 Dose: Not Given Microbiology Results 09/25/22 11:35 Blood - Blood Aerobic Blood Culture - Final No growth in 5 days. 09/25/22 11:35 Blood - Blood Anaerobic Blood Culture - Final No growth in 5 days. 09/25/22 11:30 Blood - Blood Aerobic Blood Culture - Final No growth in 5 days. 09/25/22 11:30 Blood - Blood Anaerobic Blood Culture - Final No growth in 5 days. Assessment/ Plan: Nephrology No dyspnea No chest pain Persistent abdominal pain Dyspnea No acute events overnight Vitals, medications, blood work and imaging reviewed in the chart. General: Oriented x3, Cooperative, Mild distress HEENT: Atraumatic Neck: Supple Respiratory: Clear to auscultation bilaterally Cardiovascular: No edema, Regular rate/rhythm Gastrointestinal: Hypoactive, Tenderness Musculoskeletal: No clubbing, No contractures Integumentary: No rashes, No cyanosis Neurological: Normal speech Laboratory Data (last 24 hrs) 09/25/22 11:35: Phosphorus 5.2 H, Magnesium 2.2 Imagings Data: EXAM DESCRIPTION: CT - Abdomen Pelvis Wo Contrast - 09/25/2022 12:02 pm CLINICAL HISTORY: abdominal pain, vomiting COMPARISON: Chest For Pe Angio dated 05/30/2022; Chest For Pe Angio dated 04/05/2022 TECHNIQUE: Thin cut axial CT imaging of the abdomen and pelvis was performed without IV contrast. Multiplanar reformats were generated and reviewed. All CT scans are performed using dose optimization technique as appropriate and may include automated exposure control or mA/KV adjustment according to patient size. FINDINGS: No suspicious findings in the lung bases. The liver, spleen, and pancreas show no suspicious findings. Gallbladder and biliary tree are also without suspicious finding. Symmetric renal contour, with stable hyperdensity along the renal medulla, could relate to medullary nephrocalcinosis, appears stable. Suspected lateral left renal mid pole 7 millimeter cyst, not well characterized. No other suspicious parenchymal findings within limits of non contrast technique. No evidence of radiopaque calculi or hydroureteronephrosis. Markedly dilated proximal small bowel loops, with air-fluid levels. Abrupt transition to nondistended bowel in the right paramidline abdomen, just above the umbilicus, see sagittal image 56 series 203. Distal nondistended small bowel to the level of the ileocecal junction. Mild inflammatory changes throughout the mesenteric. No free air, free fluid or inflammatory stranding. No hernia, mass or bulky lymphadenopathy. Fusiform aneurysmal dilation of the distal descending thoracic and suprarenal abdominal aorta, with maximum aneurysm diameters 3.6 x 3.4 centimeter. This is not significantly changed. The urinary bladder is suboptimally distended limiting evaluation. No suspicious bony findings. IMPRESSION: Findings concerning for small bowel obstruction with abrupt transition to nondistended bowel in the right paramidline abdomen just above the level of the umbilicus. Other incidental findings as above. EXAM DESCRIPTION: RAD - Abdomen 1 View (KUB) - 09/26/2022 11:21 am CLINICAL HISTORY: f/u SBO COMPARISON: Abdomen 1 View (KUB) dated 12/14/2015; Abdomen Pelvis Wo Contrast dated 09/25/2022 TECHNIQUE: Single AP view of the abdomen. FINDINGS: Relative paucity of bowel gas throughout the abdomen. Mild stool and gaseous content throughout the colon. Distended loops of bowel in the left flank and left upper quadrant, may relate to small bowel, up to 4.6 centimeter in caliber. . No air-fluid levels, free air, or pneumatosis. No suspicious calcifications. No significant bony abnormality. IMPRESSION: Distended loops of bowel in the left flank and left upper quadrant which may relate to small bowel, again suggestive of bowel obstruction. Paucity of bowel gas elsewhere. Conclusions/Impression: Stage II BRADEN likely due to hypovolemia, resolved CKD II with proteinuria -No NSAIDs Hyponatremia -Resolved Hypokalemia/ Hyperkalemia -Replete prn Metabolic Alkalosis in the setting of COPD -Replete potassium prn Hypophosphatemia -Replete as ordered HTN with CKD -Metoprolol IV q6h -Pain control Anemia in chronic illness Thrombocytopenia -Monitor CBC AAA 3.6cm -Consider statin Cigarette smoker -Recommend cessation SBO -NPO -Surgery following -Continue Clinimix
[2022-10-04] MEDS: METOPROLOL TARTRATE 5 MG/5 ML INJ IV SCH ×5 (00:46→23:15)
[2022-10-04] MEDS: METRONIDAZOLE 500mg IVPB 500 MG/100 ML BAG IV SCH ×5 (00:46→23:08)
[2022-10-04] MEDS: IPRATROPIUM BROM 0.5MG/2.5ML NEB SCH ×4 (02:36→21:10)
[2022-10-04] MEDS: LEVALBUTEROL 1.25 MG/3 ML NEB NEB SCH ×4 (02:36→21:10)
[2022-10-04] MEDS: HYDROMORPHONE HCL 1 MG/ML INJ IV PRN ×3 (03:29→21:00)
[2022-10-04] MEDS: LEVOTHYROXINE SOD 0.075 MG TAB PO SCH (06:30)
[2022-10-04 07:16] LABS: Absolute Lymphocytes (CBC) 0.9 K/uL (0.7-4.9); Hematocrit 26.4 % (36.0-45.0); Lymphocytes % 16.2 % (15.3-44.8); MCV 85.9 fL (80-100); MPV 9.7 fL (7.6-11.3); RBC Red Blood Cell Count 3.08 M/uL (3.86-4.86)
--- NOTE | 2022-10-04 07:25 | P.PN ---
Date of Service: 10/04/22 Subjective: Feeling better today; off BiPAP this morning feels breathing is easier complains of back pain no new / worsening problems remains tachycardic CT done overnight ROS: 10 point ROS as noted above, otherwise negative Physical Exam: Gen: Alert, AOx3 HEENT: normal conjunctiva, sclera anicteric; NGT in place CV: sinus tachycardia, no edema Pulm: moderately-labored respirations on HFNC, diminished at bases b/l Abd: soft, non-distended, Hypoactive bowel sounds Vitals reviewed Problem List: SBO now s/p resection and re-anastomosis 09/28 COPD exacerbation; acute on chronic chronic respiratory failure COPD Bilateral Pleural Effusion Acute on chronic respiratory failure BRADEN on CKD Elevated LFTs HTN Hypothyroidism Osteoarthritis Depression / Anxiety Nicotine dependence GERD Severe protein calorie malnutrition SBO now s/p resection and re-anastomosis 09/28 ex-lap with small bowel resection done 09/28 on TPN, pt hyperglycemic and with b/l effusions and ascites, will dc 10/04; low dose lasix IV (20mg) 10/04 Monitoring for return of bowel function General surgery consulted - Keep NPO per Dr. Childs while on BIPAP, consideration of NGT removal if remains off bipap Patient may be a candidate for LTAC acute on chronic respiratory failure COPD exacerbation/acute respiratory failure with hypoxia Bilateral Pleural Effusion Mild to moderate respiratory distress. Small body habitus-high risk for ventilatory issues BiPAP as needed; maintain NG tube to LIWS to reduce intestinal insufflation Continue home bronchodilators. Xopenex to replace albuterol given tachycardia Avoid steroid due to delayed wound healing adverse effect Incentive spirometry Pulmonary consulted CXR 10/03 - Right lung base aeration has mildly worsened since 10/01 xray hypoxic, tachycardic, not on DVT prophylaxis; possible PE unable to perform CTA due to allergy CT chest - noted b/l pleural effusions Started Lasix 10/04 Possibly DC NGT if able to remain off BiPAP Sinus tachycardia h/o sinus tachycardia recently HR gets up to 130s NPO, so has not been able to take metoprolol CXR with some R sided effusion, not bilateral CT 10/03 evening noted small R pleural effusion as well, and ascites will discuss further with pulm and cardiology Elevated LFTs LFT normalized CT negative for liver disease BRADEN on CKD prerenal BRADEN resolved with IVF Nephrology consulted Hypertension/tachycardia Metoprolol IV as needed Hypothyroidism Continue home dose oral Synthroid once taking PO Anxiety and depression Ativan IV as needed. Thrombocytopenia Noted gradual drop in platelet count since admit. Same pattern has occurred during previous admit. 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
[2022-10-04 07:33] LABS: Magnesium 2.1 mg/dL (1.6-2.4); Phosphorus 2.5 mg/dL (2.5-4.9); Potassium 4.4 mEq/L (3.5-5.1)
[2022-10-04] MEDS: ARFORMOTEROL TARTRATE 15 MCG/2 ML VIAL.NEB NEB SCH ×2 (08:00→21:10)
[2022-10-04] MEDS: INSULIN -REGULAR HUMAN 50 UNIT/0.5 ML ML SQ SCH ×4 (08:02→21:00)
[2022-10-04] MEDS: PANTOPRAZOLE 40 MG INJ IVP SCH (08:02)
[2022-10-04] MEDS: FONDAPARINUX SOD 2.5 MG/0.5 ML SQ SCH (08:02)
[2022-10-04] MEDS: DULOXETINE 30 MG CAP PO SCH (08:03)
[2022-10-04] MEDS: INSULIN GLARGINE 100 UNIT/ML SQ SCH (08:03)
[2022-10-04] MEDS: ROPINIROLE HCL 0.25 MG TAB PO SCH ×3 (08:03→20:44)
[2022-10-04 09:39] LABS: Blood Morphology Comment NOT SEEN (NOT SEEN); Platelet Estimate DECR
[2022-10-04] MEDS: FUROSEMIDE 20 MG/ 2ML VIAL IV SCH (09:55)
--- NOTE | 2022-10-04 11:43 | P.PN ---
Nephrology note (S) Pt on HFNC, remains on PPN, mildly tachynpec, still uncomfortable. CT performed earlier. (O) Vitals reviewed in the EMR PE General: NAD, anxious HEENT: Atraumatic, sclera anicteric, LFNC, NGT Neck: Supple Respiratory: b/l air entry with reduced BS at the bases, some tachypnea Cardiovascular: No edema, Regular rate/rhythm Gastrointestinal: Hypoactive BS, soft, mild distention, abd binder Musculoskeletal: Thin, muscle mass loss, SCDs present Integumentary: No rashes, No cyanosis Neurological: Normal speech, awake, alert Laboratory Data (last 24 hrs) Reviewed in the EMR A/P) Stage II BRADEN 2nd to vol depletion/fluid shifts with SBO -Resolved last week with Cr level normalizing, did d/c maintenance IVF early as on as pt was put on PPN/Clinimix but now with some signs of fluid retention with b/l effusions, increased work of breathing and BG elevated on it, and corrected Na up to 150. Mild hyperkalemia in the setting of hyperglycemia, better. -Hypernatremia in the setting of above mentioned, will hold off on D5W IVF given the hyperglycemia, will stop PPN. Will monitor closely with any gentle diuresis. No large gastric output losses. Metabolic Alkalosis -Stable/improved SBO -Management per IM/surgery Dyspnea, multifactorial. Pleural effusions b/l, not otherwise classified. NIPPV PRN, stop IVF, cont lasix prn, cont IS/supportive care Randell Montanez MD, BOBBY
--- NOTE | 2022-10-04 12:39 | P.PN ---
Subjective Date of Service: 10/04/22 Chief Complaint: Small bowel obstruction respiratory failure Subjective: Improving (Patient is improving changed to Vapotherm stable) Review of Systems is unable to be obtained Physical Examination - Vital Signs Temperature: 97.2 F Blood Pressure: 155/99 Pulse: 135 Respirations: 18 Pulse Ox (%): 94 - Physical Exam General: Alert, Cooperative Respiratory: Clear to auscultation bilaterally, Diminished Cardiovascular: No edema, Normal S1 S2 Assessment And Plan - Current Problems (Diagnosis) (1) Respiratory failure Current Visit: Yes Status: Acute Plan: Patient has a history of COPD s/p bowel resection changed to Vapotherm vital signs are stable on TPN oxygenation satisfactory continue with bronchodilators agree with the stopping steroid White count is normal continue with DVT prophylaxis CT scan shows pleural effusion right greater than the left Qualifiers: Chronicity: acute on chronic Physician Review: Patient Assessed, Agree with Above Assessment and Plan
--- NOTE | 2022-10-04 13:37 | RAD REPORT ---
EXAM DESCRIPTION: CT - Chest Abd Pelvis Wo Con - 10/04/2022 6:50 am CLINICAL HISTORY: Dyspnea, constipation, hx resection COMPARISON: 09/25/2022. TECHNIQUE: CT CHEST ABDOMEN PELVIS WITHOUT IV CONTRAST on 10/03/2022 8:19 PM CDT This exam was performed according to our departmental dose-optimization program, which includes autom ated exposure control, adjustment of the mA and/or kV according to patient size and/or use of iterati ve reconstruction technique. FINDINGS: Chest: The heart is normal in size. There is no pericardial effusion. There are scattered calcified central mediastinal lymph nodes. There are multiple tiny calcifications in the medullary po rtions of both kidneys. There is a suture line in one of the midline anterior small bowel loops. There is a small left pleural effusion. There is a moderate right pleural effusion. Central airways a re patent. There is upper lung centrilobular emphysema. There is bibasilar atelectasis. Abdomen: Liver is slightly hyperdense. There is perihepatic and perisplenic ascites. There is no bili poornima dilatation. The gallbladder is not seen. Pancreas is unremarkable. Adrenal glands are normal. Thoracic aorta is moderately calcified with aneurysmal dilatation of the thoracoabdominal junction me asuring up to 3.6 cm. Abdominal aorta is moderately calcified without aneurysm. There is a stent in t he left subclavian artery origin. There is no free air. There is no retroperitoneal adenopathy. Pelvis: There is suggestion of a sigmoid colon resection and anastomosis. There are several prominent small bowel loops in the left abdomen. Midline laparotomy skin alon are present. Urinary bladder is distended containing small amount of air. There is moderate amount of free pelvic fluid. Appendi x is not clearly seen. Skeleton: There are no acute osseous findings. No suspicious bony lesions. IMPRESSION: Possible mild postoperative ileus. Ascites. Bilateral pleural effusions. Electronically signed by: Nato Schwartz MD 10/04/2022 12:18 AM CDT Due to temporary technical issues with the PACS/Fluency reporting system, reports are being signed by the in house radiologist without review as a courtesy to ensure prompt reporting. The interpreting r adiologist is fully responsible for the content of the report.
[2022-10-04] MEDS: TRAZODONE 50 MG TABLET PO SCH (20:44)
[2022-10-05] MEDS: LEVALBUTEROL 1.25 MG/3 ML NEB NEB SCH ×4 (01:30→19:30)
[2022-10-05] MEDS: IPRATROPIUM BROM 0.5MG/2.5ML NEB SCH ×4 (01:30→19:30)
[2022-10-05 05:17] LABS: Absolute Lymphocytes (CBC) 1.3 K/uL (0.7-4.9); Hematocrit 26.8 % (36.0-45.0); Lymphocytes % 21.2 % (15.3-44.8); MCV 83.4 fL (80-100); MPV 9.6 fL (7.6-11.3); RBC Red Blood Cell Count 3.21 M/uL (3.86-4.86)
[2022-10-05 05:32] LABS: Phosphorus 2.3 mg/dL (2.5-4.9); Potassium 3.7 mEq/L (3.5-5.1)
[2022-10-05] MEDS: HYDROMORPHONE HCL 1 MG/ML INJ IV PRN (05:39)
[2022-10-05] MEDS: LEVOTHYROXINE SOD 0.075 MG TAB PO SCH (05:46)
[2022-10-05] MEDS: METOPROLOL TARTRATE 5 MG/5 ML INJ IV SCH ×3 (05:46→17:36)
[2022-10-05] MEDS: METRONIDAZOLE 500mg IVPB 500 MG/100 ML BAG IV SCH ×3 (05:48→16:30)
[2022-10-05] MEDS: POTASS/SODIUM PHOSPHATE 1 PKT POWD.PACK PO SCH ×6 (07:03→22:15)
--- NOTE | 2022-10-05 07:22 | P.PN ---
Date of Service: 10/05/22 Subjective: Feeling slightly better today breathing is continuing to improve vomited this morning after eating off BIPAP all day yesterday NGT removed yesterday ROS: 10 point ROS as noted above, otherwise negative Physical Exam: Gen: Alert, AOx3 HEENT: normal conjunctiva, sclera anicteric; CV: sinus tachycardia, no edema Pulm: moderately-labored respirations on HFNC, diminished at bases b/l Abd: soft, non-distended, Hypoactive bowel sounds Vitals reviewed Problem List: SBO now s/p resection and re-anastomosis 09/28 COPD exacerbation; acute on chronic chronic respiratory failure COPD Bilateral Pleural Effusion Acute on chronic respiratory failure BRADEN on CKD Elevated LFTs HTN Hypothyroidism Osteoarthritis Depression / Anxiety Nicotine dependence GERD Severe protein calorie malnutrition SBO now s/p resection and re-anastomosis 09/28 ex-lap with small bowel resection done 09/28 on TPN, pt hyperglycemic and with b/l effusions and ascites, will dc 10/04; low dose lasix IV (20mg) 10/04 Monitoring for return of bowel function NGT removed 10/04 Patient may be a candidate for LTAC acute on chronic respiratory failure COPD exacerbation/acute respiratory failure with hypoxia Bilateral Pleural Effusion Mild to moderate respiratory distress. Small body habitus-high risk for ventilatory issues BiPAP as needed Continue home bronchodilators. Xopenex to replace albuterol given tachycardia Avoid steroid due to delayed wound healing adverse effect Incentive spirometry Pulmonary consulted CXR 10/03 - Right lung base aeration has mildly worsened since 10/01 xray hypoxic, tachycardic, not on DVT prophylaxis; possible PE unable to perform CTA due to allergy CT chest - noted b/l pleural effusions Started Lasix 10/04 DC NGT 10/04 Sinus tachycardia h/o sinus tachycardia recently HR gets up to 130s Restarted metoprolol 10/05 CXR with some R sided effusion, not bilateral CT 10/03 evening noted small R pleural effusion as well, and ascites improved after diuresis and off bipap Elevated LFTs LFT normalized CT negative for liver disease BRADEN on CKD prerenal BRADEN resolved with IVF Nephrology consulted Hypertension/tachycardia Metoprolol IV as needed Hypothyroidism Continue home dose oral Synthroid once taking PO Anxiety and depression Ativan IV as needed. Thrombocytopenia Noted gradual drop in platelet count since admit. Same pattern has occurred during previous admit. 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
[2022-10-05] MEDS: INSULIN -REGULAR HUMAN 50 UNIT/0.5 ML ML SQ SCH ×4 (07:30→21:00)
[2022-10-05] MEDS: ARFORMOTEROL TARTRATE 15 MCG/2 ML VIAL.NEB NEB SCH ×2 (08:20→19:30)
[2022-10-05] MEDS: INSULIN GLARGINE 100 UNIT/ML SQ SCH (08:20)
[2022-10-05] MEDS: ROPINIROLE HCL 0.25 MG TAB PO SCH ×3 (08:27→22:14)
[2022-10-05] MEDS: DULOXETINE 30 MG CAP PO SCH (08:27)
[2022-10-05] MEDS: FUROSEMIDE 20 MG/ 2ML VIAL IV SCH (08:28)
[2022-10-05] MEDS: METOPROLOL TAR 50 MG TAB PO SCH ×2 (08:28→21:00)
[2022-10-05] MEDS ORDERED: POTASSIUM 25 MEQ EFFERV TAB PO ONE (09:00)
[2022-10-05] MEDS: PANTOPRAZOLE 40 MG INJ IVP SCH (09:00)
[2022-10-05] MEDS: ONDANSETRON 4 MG/2 ML VIAL IV PRN (10:10)
[2022-10-05] MEDS: HYDROCODONE/APAP 5/325 MG TAB PO PRN ×2 (10:38→16:30)
[2022-10-05] MEDS: Levofloxacin 750mg IV 750 MG/150 ML BAG IV SCH (16:29)
--- NOTE | 2022-10-05 21:02 | P.PN ---
Date of Service: 10/05/22 Vital Signs Temp Pulse Resp BP Pulse Ox 96.8 F 100 H 18 90/54 L 100 10/05/22 20:00 10/05/22 20:00 10/05/22 20:00 10/05/22 20:00 10/05/22 20:00 Medications Acetaminophen (Acetaminophen 650mg/Rect Supp) 650 mg MT Q6H PRN PRN Reason: TEMP > 100.4' F Hydrocodone Bitart/Acetaminophen (Hydrocodone/Apap 5/325 Mg Tab) 1 tab PO Q4H PRN PRN Reason: Pain scale 5-7 (Moderate) Last Admin: 10/05/22 16:30 Dose: 1 tab Arformoterol Tartrate (Arformoterol Tartrate 15 Mcg/2 Ml Vial.Neb) 15 mcg NEB BIDRESP [facility] Last Admin: 10/05/22 19:30 Dose: 15 mcg Duloxetine HCl (Duloxetine 30 Mg Cap) 60 mg PO DAILY [facility] Last Admin: 10/05/22 08:27 Dose: 60 mg Furosemide (Furosemide 20 Mg/ 2ml Vial) 20 mg IV DAILY [facility] Last Admin: 10/05/22 08:28 Dose: 20 mg Hydromorphone HCl (Hydromorphone Hcl 1 Mg/Ml Inj) 1 mg IV Q6H PRN PRN Reason: Pain scale 8-10 (Severe) Dextrose (D10w 500 Ml Ivpb) 500 mls @ 0 mls/hr IV .Q0M HEATHER Metronidazole/Sodium Chloride (Flagyl 500mg/100 Ml Iv Premix) 500 mg in 100 mls @ 200 mls/hr IV Q6HR [facility]; Protocol Last Admin: 10/05/22 16:30 Dose: 100 mls Levofloxacin/Dextrose (Levaquin 750 Mg/150 Ml Ivpb (Premix)) 750 mg in 150 mls @ 100 mls/hr IV Q48H HEATHER Last Admin: 10/05/22 16:29 Dose: 150 mls Insulin Human Regular (Insulin -Regular Human 50 Unit/0.5 Ml Ml) 0 unit SQ ACHS [facility]; Protocol Last Admin: 10/05/22 16:30 Dose: Not Given Ipratropium [place] (Ipratropium Brom 0.5mg/2.5ml) 0.5 mg NEB [id number] [facility] Last Admin: 10/05/22 19:30 Dose: 0.5 mg Levalbuterol HCl (Levalbuterol 1.25 Mg/3 Ml Neb) 1.25 mg NEB [id number] [facility] Last Admin: 10/05/22 19:30 Dose: 1.25 mg Levothyroxine Sodium (Levothyroxine Sod 0.075 Mg Tab) 0.075 mg PO DAILYAC [facility] Last Admin: 10/05/22 05:46 Dose: 0.075 mg Metoprolol Tartrate (Metoprolol Tartrate 5 Mg/5 Ml Inj) 5 mg IV Q6HR [facility] Last Admin: 10/05/22 17:36 Dose: 5 mg Metoprolol Tartrate (Metoprolol Tar 50 Mg Tab) 50 mg PO BID [facility] Last Admin: 10/05/22 08:28 Dose: 50 mg Naloxone HCl (Naloxone 0.4 Mg/Ml Vial) 0.4 mg IV PRN PRN PRN Reason: Resp <8, Stuporous/Unarousable Ondansetron HCl (Ondansetron 4 Mg/2 Ml Vial) 4 mg IV Q6HP PRN PRN Reason: NAUSEA / VOMITING Last Admin: 10/05/22 10:10 Dose: 4 mg Pantoprazole Sodium (Pantoprazole 40 Mg Inj) 40 mg IVP DAILY [facility]; Protocol Last Admin: 10/05/22 09:00 Dose: Not Given Potassium Phos/Sodium Phos (Potass/Sodium Phosphate 1 Pkt Powd.Pack) 1 pkt PO QID [facility] Stop: 10/05/22 21:01 Last Admin: 10/05/22 16:31 Dose: 1 pkt Ropinirole HCl (Ropinirole Hcl 0.25 Mg Tab) 0.5 mg PO TID [facility] Last Admin: 10/05/22 15:18 Dose: 0.5 mg Sodium Chloride (Sodium Chloride 0.9% 10ml Inj) 10 ml IV UD PRN PRN Reason: Diluant Sodium Chloride (Flush Normal Saline 10 Ml) 10 ml IV BID [facility] Last Admin: 10/05/22 08:29 Dose: 10 ml Trazodone HCl (Trazodone 50 Mg Tablet) 100 mg PO BEDTIME [facility] Last Admin: 10/04/22 20:44 Dose: 100 mg Microbiology Results 09/25/22 11:35 Blood - Blood Aerobic Blood Culture - Final No growth in 5 days. 09/25/22 11:35 Blood - Blood Anaerobic Blood Culture - Final No growth in 5 days. 09/25/22 11:30 Blood - Blood Aerobic Blood Culture - Final No growth in 5 days. 09/25/22 11:30 Blood - Blood Anaerobic Blood Culture - Final No growth in 5 days. Assessment/ Plan: Nephrology No dyspnea No chest pain Nausea No acute events overnight Vitals, medications, blood work and imaging reviewed in the chart. General: Oriented x3, Cooperative, Mild distress HEENT: Atraumatic Neck: Supple Respiratory: Clear to auscultation bilaterally Cardiovascular: No edema, Regular rate/rhythm Gastrointestinal: Hypoactive, Tenderness Musculoskeletal: No clubbing, No contractures Integumentary: No rashes, No cyanosis Neurological: Normal speech Laboratory Data (last 24 hrs) 09/25/22 11:35: Phosphorus 5.2 H, Magnesium 2.2 Imagings Data: EXAM DESCRIPTION: CT - Abdomen Pelvis Wo Contrast - 09/25/2022 12:02 pm CLINICAL HISTORY: abdominal pain, vomiting COMPARISON: Chest For Pe Angio dated 05/30/2022; Chest For Pe Angio dated 04/05/2022 TECHNIQUE: Thin cut axial CT imaging of the abdomen and pelvis was performed without IV contrast. Multiplanar reformats were generated and reviewed. All CT scans are performed using dose optimization technique as appropriate and may include automated exposure control or mA/KV adjustment according to patient size. FINDINGS: No suspicious findings in the lung bases. The liver, spleen, and pancreas show no suspicious findings. Gallbladder and biliary tree are also without suspicious finding. Symmetric renal contour, with stable hyperdensity along the renal medulla, could relate to medullary nephrocalcinosis, appears stable. Suspected lateral left renal mid pole 7 millimeter cyst, not well characterized. No other suspicious parenchymal findings within limits of noncontrast technique. No evidence of radiopaque calculi or hydroureteronephrosis. Markedly dilated proximal small bowel loops, with air-fluid levels. Abrupt transition to nondistended bowel in the right paramidline abdomen, just above the umbilicus, see sagittal image 56 series 203. Distal nondistended small bowel to the level of the ileocecal junction. Mild inflammatory changes throughout the mesenteric. No free air, free fluid or inflammatory stranding. No hernia, mass or bulky lymphadenopathy. Fusiform aneurysmal dilation of the distal descending thoracic and suprarenal abdominal aorta, with maximum aneurysm diameters 3.6 x 3.4 centimeter. This is not significantly changed. The urinary bladder is suboptimally distended limiting evaluation. No suspicious bony findings. IMPRESSION: Findings concerning for small bowel obstruction with abrupt transition to nondistended bowel in the right paramidline abdomen just above the level of the umbilicus. Other incidental findings as above. EXAM DESCRIPTION: RAD - Abdomen 1 View (KUB) - 09/26/2022 11:21 am CLINICAL HISTORY: f/u SBO COMPARISON: Abdomen 1 View (KUB) dated 12/14/2015; Abdomen Pelvis Wo Contrast dated 09/25/2022 TECHNIQUE: Single AP view of the abdomen. FINDINGS: Relative paucity of bowel gas throughout the abdomen. Mild stool and gaseous content throughout the colon. Distended loops of bowel in the left flank and left upper quadrant, may relate to small bowel, up to 4.6 centimeter in caliber. . No air-fluid levels, free air, or pneumatosis. No suspicious calcifications. No significant bony abnormality. IMPRESSION: Distended loops of bowel in the left flank and left upper quadrant which may relate to small bowel, again suggestive of bowel obstruction. Paucity of bowel gas elsewhere. Conclusions/Impression: Stage II BRADEN likely due to hypovolemia, resolved CKD II with proteinuria -No NSAIDs Hyponatremia/ Hypernatremia -Increase free water intake Hypokalemia/ Hyperkalemia -Replete prn Metabolic Alkalosis in the setting of COPD -Replete potassium prn Hypophosphatemia -Neutraphos as ordered HTN with CKD -Metoprolol IV q6h -Pain control Anemia in chronic illness Thrombocytopenia -Monitor CBC AAA 3.6cm -Consider statin Cigarette smoker -Recommend cessation SBO -Advance diet as tolerated -Surgery following -Continue Clinimix
[2022-10-05] MEDS: TRAZODONE 50 MG TABLET PO SCH (22:14)
[2022-10-06] MEDS: IPRATROPIUM BROM 0.5MG/2.5ML NEB SCH ×4 (01:30→20:00)
[2022-10-06] MEDS: LEVALBUTEROL 1.25 MG/3 ML NEB NEB SCH ×4 (01:30→20:00)
[2022-10-06] MEDS: ONDANSETRON 4 MG/2 ML VIAL IV PRN ×3 (01:49→17:53)
[2022-10-06] MEDS: METRONIDAZOLE 500mg IVPB 500 MG/100 ML BAG IV SCH ×5 (01:50→23:55)
[2022-10-06] MEDS: HYDROCODONE/APAP 5/325 MG TAB PO PRN ×4 (02:41→17:02)
[2022-10-06] MEDS: METOPROLOL TARTRATE 5 MG/5 ML INJ IV SCH ×4 (04:46→17:08)
[2022-10-06] MEDS: LEVOTHYROXINE SOD 0.075 MG TAB PO SCH (04:47)
[2022-10-06 07:08] LABS: Albumin 1.9 g/dL (3.4-5.0); Bilirubin Total 0.2 mg/dL (0.2-1.0); Magnesium 1.9 mg/dL (1.6-2.4); Potassium 3.7 mEq/L (3.5-5.1); Protein, Total 5.1 g/dL (6.4-8.2)
--- NOTE | 2022-10-06 07:24 | P.PN ---
Date of Service: 10/06/22 Subjective: feeling better today breathing is continuing to improve, off high flow since last night tolerating clear liquids ROS: 10 point ROS as noted above, otherwise negative Physical Exam: Gen: Alert, AOx3 HEENT: normal conjunctiva, sclera anicteric; CV: sinus tachycardia, no edema Pulm: moderately-labored respirations on 2L NC, diminished at bases b/l Abd: soft, non-distended, Hypoactive bowel sounds Vitals reviewed Problem List: SBO now s/p resection and re-anastomosis 09/28 COPD exacerbation; acute on chronic chronic respiratory failure COPD Bilateral Pleural Effusion Acute on chronic respiratory failure BRADEN on CKD Elevated LFTs HTN Hypothyroidism Osteoarthritis Depression / Anxiety Nicotine dependence GERD Severe protein calorie malnutrition SBO now s/p resection and re-anastomosis 09/28 ex-lap with small bowel resection done 09/28 on TPN, pt hyperglycemic and with b/l effusions and ascites, will dc 10/04; low dose lasix IV (20mg) 10/04 Monitoring for return of bowel function NGT removed 10/04 diet advanced 10/[address] Childs acute on chronic respiratory failure COPD exacerbation/acute respiratory failure with hypoxia Bilateral Pleural Effusion Mild to moderate respiratory distress. Small body habitus-high risk for ventilatory issues BiPAP as needed - off since 10/04 AM Continue home bronchodilators Xopenex to replace albuterol given tachycardia Avoid steroid due to delayed wound healing adverse effect Incentive spirometry Pulmonary consulted CXR 10/03 - Right lung base aeration has mildly worsened since 10/01 xray hypoxic, tachycardic, not on DVT prophylaxis; possible PE CT chest - noted b/l pleural effusions CXR 10/06 - Essentially stable chest since 10/03 unable to perform CTA due to allergy DC NGT 10/04 DC Lasix 10/05 Sinus tachycardia h/o sinus tachycardia recently HR gets up to 130s Restarted metoprolol 10/05 CT 10/03 evening noted small R pleural effusion as well, and ascites improved after diuresis and off bipap Elevated LFTs LFT normalized CT negative for liver disease BRADEN on CKD prerenal BRADEN resolved with IVF Nephrology consulted Hypertension/tachycardia - restarted home metoprolol 10/05 Hypothyroidism Continue home dose oral Synthroid Anxiety and depression Ativan IV as needed. Thrombocytopenia Noted gradual drop in platelet count since admit. Same pattern has occurred during previous admit. 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
[2022-10-06] MEDS: INSULIN -REGULAR HUMAN 50 UNIT/0.5 ML ML SQ SCH ×4 (07:30→21:00)
[2022-10-06] MEDS: ARFORMOTEROL TARTRATE 15 MCG/2 ML VIAL.NEB NEB SCH ×2 (08:46→20:00)
--- NOTE | 2022-10-06 08:51 | RAD REPORT ---
EXAM DESCRIPTION: RAD - Chest Single View - 10/06/2022 5:18 am CLINICAL HISTORY: hypoxia, f/u opacities Chest pain. COMPARISON: Chest Single View dated 10/03/2022; Chest Single View dated 10/01/2022; Abdomen 1 View (KUB ) dated 09/29/2022; Abdomen 1 View (KUB) dated 09/28/2022 FINDINGS: Portable technique limits examination quality. Bibasilar patchy opacity is present with small bilateral pleural effusions, greater on the right unch anged. Emphysematous lung craft noted. The heart is normal in size. Right-sided PICC line has tip in the SVC. IMPRESSION: Essentially stable chest since 10/03/2022.
[2022-10-06] MEDS ORDERED: POTASSIUM CL SA 10 MEQ TAB PO ONE (09:07)
[2022-10-06] MEDS: ROPINIROLE HCL 0.25 MG TAB PO SCH ×3 (09:20→20:03)
[2022-10-06] MEDS: PANTOPRAZOLE 40 MG INJ IVP SCH (09:20)
[2022-10-06] MEDS: DULOXETINE 30 MG CAP PO SCH (09:20)
[2022-10-06] MEDS: METOPROLOL TAR 50 MG TAB PO SCH ×2 (09:21→20:03)
--- NOTE | 2022-10-06 13:56 | ECHO ---
HEIGHT: 5 ft 0 in WEIGHT: 84 lb 0 oz DATE OF STUDY: 10/06/[address]: Donte Gallego MD 2-DIMENSIONAL: YES M.MODE: YES DOPPLER: YES COLOR FLOW: YES TDS: NO PORTABLE: YES DEFINITY: NO BUBBLE STUDY: NO DIAGNOSIS: EVALUATE CONGESTIVE HEART FAILURE CARDIAC HISTORY: CATHERIZATION: NO SURGERY: NO PROSTHETIC VALVE: NO PACEMAKER: NO MEASUREMENTS (cm) DIASTOLIC (NORMALS) SYSTOLIC (NORMALS) IVSd 1.1 (0.6-1.2) LA Diam 2.0 (1.9-4.0) LVEF 55-60% LVIDd 3.4 (3.5-5.7) LVIDs 2.6 (2.0-3.5) %FS 24% LVPWd 1.2 (0.6-1.2) Ao Diam 2.6 (2.0-3.7) 2 DIMENSIONAL ASSESSMENT: RIGHT ATRIUM: NORMAL LEFT ATRIUM: NORMAL RIGHT VENTRICLE: NORMAL LEFT VENTRICLE: NORMAL TRICUSPID VALVE: NORMAL MITRAL VALVE: NORMAL PULMONIC VALVE: NORMAL AORTIC VALVE: NORMAL PERICARDIAL EFFUSION: NONE AORTIC ROOT: NORMAL LEFT VENTRICULAR WALL MOTION: NORMAL DOPPLER/COLOR FLOW: NORMAL COMMENTS: 1. NORMAL LEFT VENTRICULAR EJECTION FRACTION 55-60%. 2. GRADE I DIASTOLIC DYSFUNCTION. 3. NORMAL WALL MOTION. TECHNOLOGIST: Adrian PRADO
--- NOTE | 2022-10-06 16:06 | P.PN ---
Nephrology note (S) Pt doing better overall, off TPN, tolerating some diet, has had a BM, reports less shortness of breath, off HFNC, CXR stable (O) Vitals reviewed in the EMR PE General: NAD, anxious HEENT: Atraumatic, sclera anicteric, off HFNC, NGT removed Neck: Supple Respiratory: b/l air entry with reduced BS at the bases, less tachypnea Cardiovascular: No edema, Regular rate/rhythm Gastrointestinal: soft, mild distention, NT Musculoskeletal: Thin, muscle mass loss, SCDs present Integumentary: No rashes, No cyanosis Neurological: Normal speech, awake, alert Laboratory Data (last 24 hrs) Reviewed in the EMR A/P) Stage II BRADEN 2nd to vol depletion/fluid shifts with SBO -Resolved early on with Cr level normalizing, did d/c maintenance IVF early as on as pt was put on PPN/Clinimix followed by TPN but then with some signs of fluid retention with b/l effusions, increased work of breathing and BG elevated on it, and corrected Na up to 150 earlier this week so stopped TPN and BG and Na levels better. Mild hyperkalemia in the setting of hyperglycemia, better. -Hypernatremia resolved Metabolic Alkalosis -Stable SBO -Improving, cont supportive care Dyspnea, multifactorial. Stable. Pleural effusions b/l, not otherwise classified. Stable. NIPPV PRN, stopped IVF, cont lasix prn, cont IS/supportive care Randell Montanez MD, BOBBY
[2022-10-06] MEDS: TRAZODONE 50 MG TABLET PO SCH (20:04)
[2022-10-06] MEDS: HYDROMORPHONE HCL 1 MG/ML INJ IV PRN (20:11)
[2022-10-06] MEDS: QUETIAPINE 100MG TAB PO SCH (21:13)
[2022-10-07] MEDS ORDERED: ALBUMIN HUMAN 25% 100 ML IV ONE ×2 (00:15→16:58)
[2022-10-07] MEDS: IPRATROPIUM BROM 0.5MG/2.5ML NEB SCH ×4 (02:30→19:40)
[2022-10-07] MEDS: LEVALBUTEROL 1.25 MG/3 ML NEB NEB SCH ×4 (02:30→19:40)
[2022-10-07] MEDS: LEVOTHYROXINE SOD 0.075 MG TAB PO SCH (05:46)
[2022-10-07] MEDS: METRONIDAZOLE 500mg IVPB 500 MG/100 ML BAG IV SCH ×3 (05:46→17:46)
[2022-10-07] MEDS: HYDROMORPHONE HCL 1 MG/ML INJ IV PRN (05:47)
[2022-10-07 05:54] LABS: Absolute Lymphocytes (CBC) 0.8 K/uL (0.7-4.9); Hematocrit 27.4 % (36.0-45.0); Lymphocytes % 6.9 % (15.3-44.8); MCV 84.8 fL (80-100); MPV 9.6 fL (7.6-11.3); RBC Red Blood Cell Count 3.23 M/uL (3.86-4.86)
[2022-10-07] MEDS: METOPROLOL TARTRATE 5 MG/5 ML INJ IV SCH ×4 (05:55→17:12)
[2022-10-07 06:05] LABS: Magnesium 1.9 mg/dL (1.6-2.4); Phosphorus 2.5 mg/dL (2.5-4.9); Potassium 4.1 mEq/L (3.5-5.1)
[2022-10-07] MEDS: INSULIN -REGULAR HUMAN 50 UNIT/0.5 ML ML SQ SCH ×4 (07:30→21:00)
--- NOTE | 2022-10-07 07:43 | P.PN ---
Date of Service: 10/07/22 Subjective: feels about the same as yesterday no pain noted other than chronic lower back pain eating increased; tolerated well, +BM yesterday able to sit at side of bed +some sitting exercises no new problems ROS: 10 point ROS as noted above, otherwise negative Physical Exam: Gen: Alert, AOx3 HEENT: normal conjunctiva, sclera anicteric; CV: sinus tachycardia, no edema Pulm: moderately-labored respirations on 5L NC, diminished at bases b/l Abd: soft, non-distended, Hypoactive bowel sounds Vitals reviewed Problem List: SBO now s/p resection and re-anastomosis 09/28 COPD exacerbation; acute on chronic chronic respiratory failure COPD Bilateral Pleural Effusion Acute on chronic respiratory failure BRADEN on CKD Elevated LFTs HTN Hypothyroidism Osteoarthritis Depression / Anxiety Nicotine dependence GERD Severe protein calorie malnutrition SBO now s/p resection and re-anastomosis 09/28 ex-lap with small bowel resection done 09/28 on TPN, pt hyperglycemic and with b/l effusions and ascites, will dc 10/04; low dose lasix IV (20mg) 10/04 Monitoring for return of bowel function NGT removed 10/04 diet advanced 10/[address] Childs acute on chronic respiratory failure COPD exacerbation/acute respiratory failure with hypoxia Bilateral Pleural Effusion Mild to moderate respiratory distress. Small body habitus-high risk for ventilatory issues BiPAP as needed - off since 10/04 AM Continue home bronchodilators Xopenex to replace albuterol given tachycardia Avoid steroid due to delayed wound healing adverse effect Incentive spirometry Pulmonary consulted CXR 10/03 - Right lung base aeration has mildly worsened since 10/01 xray hypoxic, tachycardic, not on DVT prophylaxis; possible PE CT chest - noted b/l pleural effusions CXR 10/06 - Essentially stable chest since 10/03 Echocardiogram 10/06 - normal left ventricular ejection fraction 55-60%; grade 1 diastolic dysfunction unable to perform CTA due to allergy DC NGT 10/04 DC Lasix 10/05 Sinus tachycardia h/o sinus tachycardia recently HR gets up to 130s Restarted metoprolol 10/05 CT 10/03 evening noted small R pleural effusion as well, and ascites improved after diuresis and off bipap Elevated LFTs LFT normalized CT negative for liver disease BRADEN on CKD prerenal BRADEN resolved with IVF Nephrology consulted Hypertension/tachycardia - restarted home metoprolol 10/05 Hypothyroidism Continue home dose oral Synthroid Anxiety and depression Ativan IV as needed. Thrombocytopenia Noted gradual drop in platelet count since admit. Same pattern has occurred during previous admit. 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
[2022-10-07] MEDS: ARFORMOTEROL TARTRATE 15 MCG/2 ML VIAL.NEB NEB SCH ×2 (08:00→19:40)
[2022-10-07] MEDS: ROPINIROLE HCL 0.25 MG TAB PO SCH ×3 (08:45→21:46)
[2022-10-07] MEDS: PANTOPRAZOLE 40 MG INJ IVP SCH (08:45)
[2022-10-07] MEDS: METOPROLOL TAR 50 MG TAB PO SCH ×2 (08:45→21:52)
[2022-10-07] MEDS: DULOXETINE 30 MG CAP PO SCH (08:45)
[2022-10-07 10:17] LABS: Anisocytosis SLIGHT; Blood Morphology Comment NOTED (NOT SEEN); Platelet Estimate DECR
--- NOTE | 2022-10-07 17:01 | P.PN ---
Nephrology note (S) Low grade temp this afternoon, WBC has risen a bit along with left shift. BP soft this afternoon, pt still requiring O2, sats drop without it (O) Vitals reviewed in the EMR PE General: NAD, anxious HEENT: Atraumatic, sclera anicteric, on LFNC, NGT removed Neck: Supple Respiratory: b/l air entry with reduced BS at the bases, less tachypnec Cardiovascular: No edema, Regular rate/rhythm Gastrointestinal: soft, mild distention, NT Musculoskeletal: Thin, muscle mass loss, SCDs present Integumentary: No rashes, No cyanosis Neurological: Normal speech, awake, alert Laboratory Data (last 24 hrs) Reviewed in the EMR A/P) Stage II BRADEN 2nd to vol depletion/fluid shifts with SBO -Resolved early on with Cr level normalizing, did d/c maintenance IVF early as on as pt was put on PPN/Clinimix followed by TPN but then with some signs of fluid retention with b/l effusions, increased work of breathing and BG elevated on it, and corrected Na up to 150 earlier last week so stopped TPN and BG and Na levels better. Mild hyperkalemia in the setting of hyperglycemia, better. -Hypernatremia resolved Metabolic Alkalosis -Stable SBO -Improving, cont supportive care Dyspnea, multifactorial. Stable. Pleural effusions b/l, not otherwise classified. Stable. NIPPV PRN, stopped IVF, cont lasix prn, cont IS/supportive care Relative hypotension, fevers unspecified Will dose Albumin 25% 100 ml x 1, pt in on Flagyl currently, will inform Dr. Gallego and may need to broaden to cover for PNA, other Randell Montanez MD, BOBBY
[2022-10-07] MEDS: ONDANSETRON 4 MG/2 ML VIAL IV PRN (17:46)
[2022-10-07] MEDS: Levofloxacin 750mg IV 750 MG/150 ML BAG IV SCH (17:46)
[2022-10-07] MEDS: QUETIAPINE 100MG TAB PO SCH (21:46)
[2022-10-07] MEDS: TRAZODONE 50 MG TABLET PO SCH (21:46)
[2022-10-07] MEDS: HYDROCODONE/APAP 5/325 MG TAB PO PRN (21:59)
[2022-10-08] MEDS: METRONIDAZOLE 500mg IVPB 500 MG/100 ML BAG IV SCH ×5 (00:53→23:56)
[2022-10-08] MEDS: IPRATROPIUM BROM 0.5MG/2.5ML NEB SCH ×4 (01:45→20:00)
[2022-10-08] MEDS: LEVALBUTEROL 1.25 MG/3 ML NEB NEB SCH ×4 (01:45→20:25)
[2022-10-08 04:14] LABS: Absolute Lymphocytes (CBC) 0.8 K/uL (0.7-4.9); Hematocrit 23.2 % (36.0-45.0); Lymphocytes % 6.8 % (15.3-44.8); MCV 84.2 fL (80-100); MPV 9.8 fL (7.6-11.3); RBC Red Blood Cell Count 2.75 M/uL (3.86-4.86)
[2022-10-08 04:30] LABS: ALT/SGPT < 10 U/L (13-56); AST/SGOT 14 U/L (15-37); Albumin 2.1 g/dL (3.4-5.0); Alkaline Phosphatase 47 U/L (45-117); BUN Blood Urea Nitrogen 15 mg/dL (7-18); Bicarbonate 32 mEq/L (21-32); Bilirubin Total 0.4 mg/dL (0.2-1.0); Glomerular Filtration Rate 73 ml/min (=/>90); Glucose Level 91 mg/dL (74-106); Magnesium 1.8 mg/dL (1.6-2.4); Phosphorus 2.4 mg/dL (2.5-4.9); Potassium 3.9 mEq/L (3.5-5.1); Protein, Total 4.8 g/dL (6.4-8.2); Sodium Level 137 mEq/L (136-145)
[2022-10-08] MEDS: METOPROLOL TARTRATE 5 MG/5 ML INJ IV SCH ×3 (05:26→11:03)
[2022-10-08] MEDS: LEVOTHYROXINE SOD 0.075 MG TAB PO SCH (05:33)
[2022-10-08] MEDS: HYDROCODONE/APAP 5/325 MG TAB PO PRN ×2 (05:52→17:17)
--- NOTE | 2022-10-08 07:06 | P.PN ---
Date of Service: 10/08/22 Subjective: Feeling better than yesterday has not ambulated out of bed in days encouraged to eat/drink more, will try clear ensure pain decreased; back pain persists no new problems does not like ensure, but does like BOOST ROS: 10 point ROS as noted above, otherwise negative Physical Exam: Gen: Alert, AOx3 HEENT: normal conjunctiva, sclera anicteric; CV: sinus tachycardia, no edema Pulm: moderately-labored respirations on 2L NC, diminished at bases b/l Abd: soft, non-distended, Hypoactive bowel sounds Vitals reviewed Problem List: SBO now s/p resection and re-anastomosis 09/28 COPD exacerbation; acute on chronic chronic respiratory failure COPD Bilateral Pleural Effusion Acute on chronic respiratory failure BRADEN on CKD Elevated LFTs HTN Hypothyroidism Osteoarthritis Depression / Anxiety Nicotine dependence GERD Severe protein calorie malnutrition SBO now s/p resection and re-anastomosis 09/28 ex-lap with small bowel resection done 09/28 was on TPN, became hyperglycemic, and required insulin TPN stopped due to fluid overload, b/l effusions on CXR (dc'd 10/04) bowel function returned, NGT removed 10/04 diet advanced not taking in much PO acute on chronic respiratory failure COPD exacerbation/acute respiratory failure with hypoxia Bilateral Pleural Effusion Mild to moderate respiratory distress post-op Small body habitus-high risk for ventilatory issues required bipap and HFNC for several days - off since 10/04 AM BiPAP as needed - off since 10/04 AM Xopenex to replace albuterol given tachycardia Avoid steroid due to delayed wound healing adverse effect Incentive spirometry Pulmonary consulted CXR 10/03 - Right lung base aeration has mildly worsened since 10/01 xray hypoxic, tachycardic, not on DVT prophylaxis; possible PE; difficulty covering secondary to concern for HIT / thrombocytopenia CT chest - noted b/l pleural effusions CXR 10/06 - Essentially stable chest since 10/03 Echocardiogram 10/06 - normal left ventricular ejection fraction 55-60%; grade 1 diastolic dysfunction unable to perform CTA due to allergy DC NGT 10/04 DC Lasix 10/05 Sinus tachycardia h/o sinus tachycardia recently HR gets up to 130s intermittently Restarted metoprolol 10/05 CT 10/03 evening noted small R pleural effusion as well, and ascites improved after diuresis and off bipap Elevated LFTs LFT normalized CT negative for liver disease BRADEN on CKD prerenal BRADEN resolved with IVF Nephrology consulted Hypertension/tachycardia - restarted home metoprolol 10/05 Hypothyroidism Continue home dose oral Synthroid Anxiety and depression Ativan IV as needed. Thrombocytopenia Noted gradual drop in platelet count since admit. Same pattern has occurred during previous admit. 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
[2022-10-08] MEDS: INSULIN -REGULAR HUMAN 50 UNIT/0.5 ML ML SQ SCH ×4 (07:30→21:00)
[2022-10-08] MEDS: METOPROLOL TAR 50 MG TAB PO SCH ×2 (08:37→21:00)
[2022-10-08] MEDS: ARFORMOTEROL TARTRATE 15 MCG/2 ML VIAL.NEB NEB SCH ×2 (08:39→20:25)
[2022-10-08] MEDS: DULOXETINE 30 MG CAP PO SCH (08:40)
[2022-10-08] MEDS: PANTOPRAZOLE 40 MG INJ IVP SCH (08:40)
[2022-10-08] MEDS: ROPINIROLE HCL 0.25 MG TAB PO SCH ×3 (08:40→21:56)
[2022-10-08] MEDS: POTASS/SODIUM PHOSPHATE 1 PKT POWD.PACK PO SCH (08:41)
[2022-10-08] MEDS ORDERED: MAGNESIUM SULFATE 1 gm IVPB 1 GM/100 ML BAG IV ONE (09:00)
[2022-10-08] MEDS ORDERED: POTASSIUM CL SA 10 MEQ TAB PO ONE (09:00)
--- NOTE | 2022-10-08 09:29 | P.PN ---
Subjective Date of Service: 10/01/22 Chief Complaint: Small bowel obstruction respiratory failure continues to have respiratory insufficiency, + minimal passage of gas, no acute events Physical Examination - Vital Signs Temperature: 99.7 F Blood Pressure: 91/54 Pulse: 106 Respirations: 18 Pulse Ox (%): 99 - Physical Exam General: Alert, In no apparent distress, Cooperative, Cachectic Respiratory: Other (BIPAP ) Gastrointestinal: Other (soft, mild appropriate TTP, ND, incision clean and dry) Assessment And Plan - Current Problems (Diagnosis) (1) Small bowel obstruction due to postoperative adhesions Current Visit: Yes Status: Acute Plan: Patient is a 72 year old woman who presents s/p exploratory laparotomy with small bowel resection and primary anastamosis on 09/28/2022 Gen / Neuro: continue pain control with ALGEBRA TUTOR Pulmonary: COPD / Respiratory insufficiency - continue oxygen supplementation, incentive spirometry, nebs, minimize steroid using in perioperative period GI: anticipate significant ileus - keep NGT in place, serial exams FEN : continue TPN, with her current nutritional status, she is increased risk for refeeding syndrome, continue to monitor electolytes and replace PRN PT: ambulate with assist Patient will perhaps need LTAC - social media job titles consult Physician Review: Patient Assessed, Agree with Above Assessment and Plan
--- NOTE | 2022-10-08 09:32 | P.PN ---
Subjective Date of Service: 10/03/22 Chief Complaint: Small bowel obstruction respiratory failure continues to have respiratory insufficiency, + minimal passage of gas, no acute events Physical Examination - Vital Signs Temperature: 99.7 F Blood Pressure: 91/54 Pulse: 106 Respirations: 18 Pulse Ox (%): 99 - Physical Exam General: Alert, In no apparent distress, Cooperative Respiratory: Clear to auscultation bilaterally, Diminished Gastrointestinal: Other (soft, mild appropriate TTP, ND, incision clean and dry) Assessment And Plan - Current Problems (Diagnosis) (1) Small bowel obstruction due to postoperative adhesions Current Visit: Yes Status: Acute Plan: Patient is a 72 year old woman who presents s/p exploratory laparotomy with small bowel resection and primary anastamosis on 09/28/2022 Gen / Neuro: continue pain control with POSTAL DELIVERY OFFICER Pulmonary: COPD / Respiratory insufficiency - continue oxygen supplementation, incentive spirometry, nebs, minimize steroid using in perioperative period GI: anticipate ileus - keep NGT in place while on BIPAP, serial exams FEN : continue TPN, with her current nutritional status, she is increased risk for refeeding syndrome, continue to monitor electolytes and replace PRN PT: ambulate with assist Patient will perhaps need LTAC - criminal justice social worker consult Physician Review: Patient Assessed, Agree with Above Assessment and Plan
--- NOTE | 2022-10-08 09:32 | P.PN ---
Subjective Date of Service: 10/02/22 Chief Complaint: Small bowel obstruction respiratory failure continues to have respiratory insufficiency, + minimal passage of gas, no acute events Physical Examination - Vital Signs Temperature: 99.7 F Blood Pressure: 91/54 Pulse: 106 Respirations: 18 Pulse Ox (%): 99 - Physical Exam General: Alert, In no apparent distress, Cooperative, Cachectic Respiratory: Diminished Gastrointestinal: Other (soft, mild appropriate TTP, ND, incision clean and dry) Neurological: Normal speech Assessment And Plan - Current Problems (Diagnosis) (1) Small bowel obstruction due to postoperative adhesions Current Visit: Yes Status: Acute Plan: Patient is a 72 year old woman who presents s/p exploratory laparotomy with small bowel resection and primary anastamosis on 09/28/2022 Gen / Neuro: continue pain control with FLOOR TECHNICIAN Pulmonary: COPD / Respiratory insufficiency - continue oxygen supplementation, incentive spirometry, nebs, minimize steroid using in perioperative period GI: anticipate ileus - keep NGT in place while on BIPAP, serial exams FEN : continue TPN, with her current nutritional status, she is increased risk for refeeding syndrome, continue to monitor electolytes and replace PRN PT: ambulate with assist Patient will perhaps need LTAC - social worker clinical consult Physician Review: Patient Assessed, Agree with Above Assessment and Plan
--- NOTE | 2022-10-08 09:33 | P.PN ---
Subjective Date of Service: 10/05/22 Chief Complaint: Small bowel obstruction respiratory failure continues to have respiratory insufficiency, + minimal passage of gas, no acute events Physical Examination - Vital Signs Temperature: 99.7 F Blood Pressure: 91/54 Pulse: 106 Respirations: 18 Pulse Ox (%): 99 - Physical Exam General: Alert, In no apparent distress, Cooperative Respiratory: Clear to auscultation bilaterally, Diminished Gastrointestinal: Other (soft, mild appropriate TTP, ND, incision clean and dry) Assessment And Plan - Current Problems (Diagnosis) (1) Small bowel obstruction due to postoperative adhesions Current Visit: Yes Status: Acute Plan: Patient is a 72 year old woman who presents s/p exploratory laparotomy with small bowel resection and primary anastamosis on 09/28/2022 Gen / Neuro: continue pain control with ACCOUNT ASSISTANT Pulmonary: COPD / Respiratory insufficiency - continue oxygen supplementation, incentive spirometry, nebs, minimize steroid using in perioperative period GI: anticipate ileus - keep NGT in place while on BIPAP, serial exams FEN : continue TPN, with her current nutritional status, she is increased risk for refeeding syndrome, continue to monitor electolytes and replace PRN PT: ambulate with assist Patient will perhaps need LTAC - social contact worker consult Physician Review: Patient Assessed, Agree with Above Assessment and Plan
--- NOTE | 2022-10-08 09:36 | P.PN ---
Subjective Date of Service: 10/06/22 Chief Complaint: Small bowel obstruction respiratory failure continues to have respiratory insufficiency, + bowel movements, BIPAP off Physical Examination - Vital Signs Temperature: 99.7 F Blood Pressure: 91/54 Pulse: 106 Respirations: 18 Pulse Ox (%): 99 - Physical Exam General: Alert, In no apparent distress, Cooperative Respiratory: Clear to auscultation bilaterally, Diminished Gastrointestinal: Other (soft, mild appropriate TTP, ND, incision clean and dry) Assessment And Plan - Current Problems (Diagnosis) (1) Small bowel obstruction due to postoperative adhesions Current Visit: Yes Status: Acute Plan: Patient is a 72 year old woman who presents s/p exploratory laparotomy with s mall bowel resection and primary anastamosis on 09/28/2022 Gen / Neuro: continue pain control PO Pulmonary: COPD / Respiratory insufficiency - continue oxygen supplementation, incentive spirometry, nebs, minimize steroid using in perioperative period GI: anticipate ileus -NGT removed - start clears and advance as tolerated FEN : wean off TPN, continue to monitor electolytes and replace PRN PT: ambulate with assist Patient will perhaps need rehab - socially responsible investment adviser consult Physician Review: Patient Assessed, Agree with Above Assessment and Plan
--- NOTE | 2022-10-08 09:38 | P.PN ---
Subjective Date of Service: 10/07/22 Chief Complaint: Small bowel obstruction respiratory failure continues to have respiratory insufficiency, + bowel movements, BIPAP off, tolerating diet well Physical Examination - Vital Signs Temperature: 99.7 F Blood Pressure: 91/54 Pulse: 106 Respirations: 18 Pulse Ox (%): 99 - Physical Exam General: Alert, In no apparent distress, Cooperative Respiratory: Clear to auscultation bilaterally, Diminished Gastrointestinal: Soft and benign, Non-distended, No tenderness, No masses, No rebound, No guarding (incision clean, dry) Assessment And Plan - Current Problems (Diagnosis) (1) Small bowel obstruction due to postoperative adhesions Current Visit: Yes Status: Acute Plan: Patient is a 72 year old woman who presents s/p exploratory laparotomy with small bowel resection and primary anastamosis on 09/28/2022 Gen / Neuro: continue pain control - PO Pulmonary: COPD / Respiratory insufficiency - continue oxygen supplementation, incentive spirometry, nebs, minimize steroid using in perioperative period GI: anticipate ileus -NGT removed - start clears and advance as tolerated FEN : advance diet to soft PT: ambulate with assist Patient will perhaps need rehab - oncology social worker consult Physician Review: Patient Assessed, Agree with Above Assessment and Plan
[2022-10-08] MEDS ORDERED: NA CHLORIDE 0.9% 1,000 ML IV SCH (12:00)
[2022-10-08] MEDS: LIDOCAINE 4% PATCH TOP SCH (12:58)
[2022-10-08] MEDS: TRAZODONE 50 MG TABLET PO SCH (21:55)
[2022-10-08] MEDS: QUETIAPINE 100MG TAB PO SCH (21:56)
[2022-10-09] MEDS: IPRATROPIUM BROM 0.5MG/2.5ML NEB SCH ×4 (02:00→19:30)
[2022-10-09] MEDS: LEVALBUTEROL 1.25 MG/3 ML NEB NEB SCH ×4 (02:00→19:30)
[2022-10-09 03:34] LABS: Hematocrit 22.8 % (36.0-45.0); MCV 84.3 fL (80-100); MPV 9.6 fL (7.6-11.3); RBC Red Blood Cell Count 2.71 M/uL (3.86-4.86)
[2022-10-09] MEDS: HYDROCODONE/APAP 5/325 MG TAB PO PRN ×2 (03:54→11:47)
[2022-10-09 04:16] LABS: Magnesium 2.2 mg/dL (1.6-2.4); Phosphorus 2.7 mg/dL (2.5-4.9); Potassium 4.1 mEq/L (3.5-5.1)
[2022-10-09] MEDS: LEVOTHYROXINE SOD 0.075 MG TAB PO SCH (06:04)
[2022-10-09] MEDS: METRONIDAZOLE 500mg IVPB 500 MG/100 ML BAG IV SCH ×3 (06:05→18:00)
--- NOTE | 2022-10-09 07:08 | P.PN ---
Date of Service: 10/09/22 Subjective: Feeling better this morning; no ambulating today patient claims to be eating about 20-30% of meals encouraged her to ask family to bring Boost which she likes; dislikes ensure Diarrhea +dark brownish urine ROS: 10 point ROS as noted above, otherwise negative Physical Exam: Gen: Alert, AOx3 HEENT: normal conjunctiva, sclera anicteric CV: sinus tachycardia, no edema Pulm: moderately-labored respirations on 3L NC, diminished at bases b/l Abd: soft, non-distended, Hypoactive bowel sounds Vitals reviewed Problem List: SBO now s/p resection and re-anastomosis 09/28 COPD exacerbation; acute on chronic chronic respiratory failure COPD Bilateral Pleural Effusion Anemia Acute on chronic respiratory failure BRADEN on CKD Thrombocytopenia Elevated LFTs HTN Hypothyroidism Osteoarthritis Depression / Anxiety Nicotine dependence GERD Severe protein calorie malnutrition SBO now s/p resection and re-anastomosis 09/28 ex-lap with small bowel resection done 09/28 was on TPN, became hyperglycemic, and required insulin TPN stopped due to fluid overload, b/l effusions on CXR (dc'd 10/04) bowel function returned, NGT removed 10/04 diet advanced not taking in much PO acute on chronic respiratory failure COPD exacerbation/acute respiratory failure with hypoxia Bilateral Pleural Effusion Mild to moderate respiratory distress post-op Small body habitus-high risk for ventilatory issues required bipap and HFNC for several days - off since 10/04 AM Xopenex to replace albuterol given tachycardia Avoid steroid due to delayed wound healing adverse effect Incentive spirometry Pulmonary consulted CXR 10/03 - Right lung base aeration has mildly worsened since 10/01 xray hypoxic, tachycardic, not on DVT prophylaxis; possible PE; difficulty covering secondary to concern for HIT / thrombocytopenia CT chest - noted b/l pleural effusions CXR 10/06 - Essentially stable chest since 10/03 Echocardiogram 10/06 - normal left ventricular ejection fraction 55-60%; grade 1 diastolic dysfunction unable to perform CTA due to allergy DC NGT 10/04 DC Lasix 10/05 Anemia hgb dropped to 7.2 yesterday hgb this morning 7.9 -> 7.3 repeat H&H 1 uPRBC ordered 10/09 Sinus tachycardia h/o sinus tachycardia recently HR gets up to 130s intermittently Restarted metoprolol 10/05 CT 10/03 evening noted small R pleural effusion as well, and ascites improved after diuresis and off bipap Elevated LFTs LFT normalized CT negative for liver disease BRADEN on CKD prerenal BRADEN resolved with IVF Nephrology consulted Thrombocytopenia Noted gradual drop in platelet count since admit. Same pattern has occurred during previous admit. 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 VTE: arixtra Code: Full Dispo: SNF vs IRF ~ 48-72hours debilitated, has not ambulated only sat up in bed more agreeable to IRF if approved
[2022-10-09] MEDS: INSULIN -REGULAR HUMAN 50 UNIT/0.5 ML ML SQ SCH ×2 (07:30→11:30)
[2022-10-09] MEDS: ARFORMOTEROL TARTRATE 15 MCG/2 ML VIAL.NEB NEB SCH ×2 (08:05→19:30)
[2022-10-09] MEDS: PANTOPRAZOLE 40 MG INJ IVP SCH (08:55)
[2022-10-09] MEDS: LIDOCAINE 4% PATCH TOP SCH (08:55)
[2022-10-09] MEDS: DULOXETINE 30 MG CAP PO SCH (08:55)
[2022-10-09] MEDS: ROPINIROLE HCL 0.25 MG TAB PO SCH ×3 (08:55→20:30)
[2022-10-09] MEDS: METOPROLOL TAR 50 MG TAB PO SCH ×2 (08:56→20:29)
[2022-10-09] MEDS: ONDANSETRON 4 MG/2 ML VIAL IV PRN (11:46)
[2022-10-09] MEDS: Levofloxacin 750mg IV 750 MG/150 ML BAG IV SCH (16:32)
[2022-10-09] MEDS ORDERED: NA CHLORIDE 0.9% 250 ML ONE (17:51)
--- NOTE | 2022-10-09 20:02 | P.PN ---
Subjective Date of Service: 10/09/22 Chief Complaint: Small bowel obstruction respiratory failure continues to have respiratory insufficiency, + bowel movements, BIPAP off, tolerating diet well complains of weakness Physical Examination - Vital Signs Temperature: 98.7 F Blood Pressure: 119/69 Pulse: 116 Respirations: 17 Pulse Ox (%): 97 - Physical Exam General: Alert, In no apparent distress, Cooperative Respiratory: Diminished Cardiovascular: Other (tachycardia) Gastrointestinal: Soft and benign, No ascites, No masses, No rebound, No guarding, Other (minimal TTP, ND, incisions clean) Neurological: Normal speech Assessment And Plan - Current Problems (Diagnosis) (1) Small bowel obstruction due to postoperative adhesions Current Visit: Yes Status: Acute Plan: Patient is a 72 year old woman who presents s/p exploratory laparotomy with small bowel resection and primary anastamosis on 09/28/2022 Gen / Neuro: continue pain control - PO Pulmonary: COPD / Respiratory insufficiency - continue oxygen supplementation, incentive spirometry, nebs, minimize steroid using in perioperative period GI: start clears and advance as tolerated, soft diet FEN : advance diet to soft PT: ambulate with assist Patient will perhaps need rehab - social worker school consult Physician Review: Patient Assessed, Agree with Above Assessment and Plan
--- NOTE | 2022-10-09 20:07 | P.PN ---
Date of Service: 10/09/22 Vital Signs Temp Pulse Resp BP Pulse Ox 98.7 F 116 H 17 119/69 97 10/09/22 16:00 10/09/22 16:00 10/09/22 16:00 10/09/22 16:00 10/09/22 16:00 Medications Acetaminophen (Acetaminophen 650mg/Rect Supp) 650 mg MT Q6H PRN PRN Reason: TEMP > 100.4' F Last Admin: 10/07/22 15:07 Dose: 650 mg Hydrocodone Bitart/Acetaminophen (Hydrocodone/Apap 5/325 Mg Tab) 1 tab PO Q4H PRN PRN Reason: Pain scale 5-7 (Moderate) Last Admin: 10/09/22 11:47 Dose: 1 tab Arformoterol Tartrate (Arformoterol Tartrate 15 Mcg/2 Ml Vial.Neb) 15 mcg NEB BIDRESP HEATHER Last Admin: 10/09/22 08:05 Dose: 15 mcg Duloxetine HCl (Duloxetine 30 Mg Cap) 60 mg PO DAILY [facility] Last Admin: 10/09/22 08:55 Dose: 60 mg Hydromorphone HCl (Hydromorphone Hcl 0.5 Mg/0.5 Ml Inj) 0.5 mg IV Q6H PRN PRN Reason: Pain scale 8-10 (Severe) Dextrose (D10w 500 Ml Ivpb) 500 mls @ 0 mls/hr IV .Q0M HEATHER Metronidazole/Sodium Chloride (Flagyl 500mg/100 Ml Iv Premix) 500 mg in 100 mls @ 200 mls/hr IV Q6HR [facility]; Protocol Last Admin: 10/09/22 18:00 Dose: 100 mls Levofloxacin/Dextrose (Levaquin 750 Mg/150 Ml Ivpb (Premix)) 750 mg in 150 mls @ 100 mls/hr IV Q48H HEATHER Last Admin: 10/09/22 16:32 Dose: 150 mls Ipratropium [place] (Ipratropium Brom 0.5mg/2.5ml) 0.5 mg NEB [id number] [facility] Last Admin: 10/09/22 14:10 Dose: 0.5 mg Levalbuterol HCl (Levalbuterol 1.25 Mg/3 Ml Neb) 1.25 mg NEB [id number] [facility] Last Admin: 10/09/22 14:10 Dose: 1.25 mg Levothyroxine Sodium (Levothyroxine Sod 0.075 Mg Tab) 0.075 mg PO DAILYAC [facility] Last Admin: 10/09/22 06:04 Dose: 0.075 mg Lidocaine (Lidocaine 4% Patch) 1 patch TOP DAILY [facility] Last Admin: 10/09/22 08:55 Dose: 1 patch Metoprolol Tartrate (Metoprolol Tar 50 Mg Tab) 50 mg PO BID [facility] Last Admin: 10/09/22 08:56 Dose: Not Given Naloxone HCl (Naloxone 0.4 Mg/Ml Vial) 0.4 mg IV PRN PRN PRN Reason: Resp <8, Stuporous/Unarousable Ondansetron HCl (Ondansetron 4 Mg/2 Ml Vial) 4 mg IV Q6HP PRN PRN Reason: NAUSEA / VOMITING Last Admin: 10/09/22 11:46 Dose: 4 mg Pantoprazole Sodium (Pantoprazole 40 Mg Inj) 40 mg IVP DAILY [facility]; Protocol Last Admin: 10/09/22 08:55 Dose: 40 mg Quetiapine Fumarate (Quetiapine 100mg Tab) 200 mg PO BEDTIME [facility] Last Admin: 10/08/22 21:56 Dose: 200 mg Ropinirole HCl (Ropinirole Hcl 0.25 Mg Tab) 0.5 mg PO TID [facility] Last Admin: 10/09/22 14:25 Dose: 0.5 mg Sodium Chloride (Sodium Chloride 0.9% 10ml Inj) 10 ml IV UD PRN PRN Reason: Diluant Sodium Chloride (Flush Normal Saline 10 Ml) 10 ml IV BID [facility] Last Admin: 10/09/22 08:56 Dose: 10 ml Trazodone HCl (Trazodone 50 Mg Tablet) 100 mg PO BEDTIME [facility] Last Admin: 10/08/22 21:55 Dose: 100 mg Microbiology Results 09/25/22 11:35 Blood - Blood Aerobic Blood Culture - Final No growth in 5 days. 09/25/22 11:35 Blood - Blood Anaerobic Blood Culture - Final No growth in 5 days. 09/25/22 11:30 Blood - Blood Aerobic Blood Culture - Final No growth in 5 days. 09/25/22 11:30 Blood - Blood Anaerobic Blood Culture - Final No growth in 5 days. Assessment/ Plan: Nephrology No dyspnea No chest pain Feeling better with improved appetite No acute events overnight Vitals, medications, blood work and imaging reviewed in the chart. General: Oriented x3, Cooperative, Mild distress HEENT: Atraumatic Neck: Supple Respiratory: Clear to auscultation bilaterally Cardiovascular: No edema, Regular rate/rhythm Gastrointestinal: Hypoactive, Tenderness Musculoskeletal: No clubbing, No contractures Integumentary: No rashes, No cyanosis Neurological: Normal speech Laboratory Data (last 24 hrs) 09/25/22 11:35: Phosphorus 5.2 H, Magnesium 2.2 Imagings Data: EXAM DESCRIPTION: CT - Abdomen Pelvis Wo Contrast - 09/25/2022 12:02 pm CLINICAL HISTORY: abdominal pain, vomiting COMPARISON: Chest For Pe Angio dated 05/30/2022; Chest For Pe Angio dated 04/05/2022 TECHNIQUE: Thin cut axial CT imaging of the abdomen and pelvis was performed without IV contrast. Multiplanar reformats were generated and reviewed. All CT scans are performed using dose optimization technique as appropriate and may include automated exposure control or mA/KV adjustment according to patient size. FINDINGS: No suspicious findings in the lung bases. The liver, spleen, and pancreas show no suspicious findings. Gallbladder and biliary tree are also without suspicious finding. Symmetric renal contour, with stable hyperdensity along the renal medulla, could relate to medullary nephrocalcinosis, appears stable. Suspected lateral left renal mid pole 7 millimeter cyst, not well characterized. No other suspicious parenchymal findings within limits of noncontrast technique. No evidence of radiopaque calculi or hydroureteronephrosis. Markedly dilated proximal small bowel loops, with air-fluid levels. Abrupt transition to nondistended bowel in the right paramidline abdomen, just above the umbilicus, see sagittal image 56 series 203. Distal nondistended small bowel to the level of the ileocecal junction. Mild inflammatory changes throughout the mesenteric. No free air, free fluid or inflammatory stranding. No hernia, mass or bulky lymphadenopathy. Fusiform aneurysmal dilation of the distal descending thoracic and suprarenal abdominal aorta, with maximum aneurysm diameters 3.6 x 3.4 centimeter. This is not significantly changed. The urinary bladder is suboptimally distended limiting evaluation. No suspicious bony findings. IMPRESSION: Findings concerning for small bowel obstruction with abrupt transition to nondistended bowel in the right paramidline abdomen just above the level of the umbilicus. Other incidental findings as above. EXAM DESCRIPTION: RAD - Abdomen 1 View (KUB) - 09/26/2022 11:21 am CLINICAL HISTORY: f/u SBO COMPARISON: Abdomen 1 View (KUB) dated 12/14/2015; Abdomen Pelvis Wo Contrast dated 09/25/2022 TECHNIQUE: Single AP view of the abdomen. FINDINGS: Relative paucity of bowel gas throughout the abdomen. Mild stool and gaseous content throughout the colon. Distended loops of bowel in the left flank and left upper quadrant, may relate to small bowel, up to 4.6 centimeter in caliber. . No air-fluid levels, free air, or pneumatosis. No suspicious calcifications. No significant bony abnormality. IMPRESSION: Distended loops of bowel in the left flank and left upper quadrant which may relate to small bowel, again suggestive of bowel obstruction. Paucity of bowel gas elsewhere. Conclusions/Impression: Stage II BRADEN likely due to hypovolemia, resolved CKD II with proteinuria -No NSAIDs Hyponatremia/ Hypernatremia, resolved Hypokalemia/ Hyperkalemia -Replete prn Metabolic Alkalosis in the setting of COPD, improving -Replete potassium prn Hypophosphatemia -Encourage nutrition HTN with CKD -Metoprolol 50mg BID Anemia in chronic illness Thrombocytopenia -Monitor CBC -Transfer PRBC prn AAA 3.6cm -Consider statin Cigarette smoker -Recommend cessation SBO -Advance diet as tolerated -Surgery following Case reviewed with Dr. Gallego
[2022-10-09] MEDS: TRAZODONE 50 MG TABLET PO SCH (20:29)
[2022-10-09] MEDS: QUETIAPINE 100MG TAB PO SCH (20:30)
[2022-10-10] MEDS: IPRATROPIUM BROM 0.5MG/2.5ML NEB SCH ×4 (01:30→19:30)
[2022-10-10] MEDS: LEVALBUTEROL 1.25 MG/3 ML NEB NEB SCH ×4 (01:30→19:30)
[2022-10-10] MEDS: METRONIDAZOLE 500mg IVPB 500 MG/100 ML BAG IV SCH ×5 (02:49→21:16)
[2022-10-10] MEDS: HYDROMORPHONE HCL 0.5 MG/0.5 ML INJ IV PRN (05:29)
[2022-10-10] MEDS: LEVOTHYROXINE SOD 0.075 MG TAB PO SCH (06:27)
[2022-10-10 07:17] LABS: Hematocrit 26.7 % (36.0-45.0)
[2022-10-10] MEDS: ARFORMOTEROL TARTRATE 15 MCG/2 ML VIAL.NEB NEB SCH ×2 (07:49→19:30)
[2022-10-10] MEDS: PANTOPRAZOLE 40 MG INJ IVP SCH (08:46)
[2022-10-10] MEDS: ROPINIROLE HCL 0.25 MG TAB PO SCH ×3 (08:46→21:15)
[2022-10-10] MEDS: METOPROLOL TAR 50 MG TAB PO SCH ×2 (08:47→21:15)
[2022-10-10] MEDS: DULOXETINE 30 MG CAP PO SCH (08:47)
[2022-10-10] MEDS: LIDOCAINE 4% PATCH TOP SCH (08:47)
[2022-10-10] MEDS: HYDROCODONE/APAP 5/325 MG TAB PO PRN (14:16)
--- NOTE | 2022-10-10 21:01 | P.PN ---
Date of Service: 10/10/22 Vital Signs Temp Pulse Resp BP Pulse Ox 98.2 F 96 H 17 159/88 H 94 10/10/22 16:00 10/10/22 16:00 10/10/22 16:00 10/10/22 16:00 10/10/22 16:00 Medications Acetaminophen (Acetaminophen 650mg/Rect Supp) 650 mg [place] Q6H PRN PRN Reason: TEMP > 100.4' F Last Admin: 10/07/22 15:07 Dose: 650 mg Hydrocodone Bitart/Acetaminophen (Hydrocodone/Apap 5/325 Mg Tab) 1 tab PO Q4H PRN PRN Reason: Pain scale 5-7 (Moderate) Last Admin: 10/10/22 14:16 Dose: 1 tab Arformoterol Tartrate (Arformoterol Tartrate 15 Mcg/2 Ml Vial.Neb) 15 mcg NEB BIDRESP [facility] Last Admin: 10/10/22 07:49 Dose: 15 mcg Duloxetine HCl (Duloxetine 30 Mg Cap) 60 mg PO DAILY [facility] Last Admin: 10/10/22 08:47 Dose: 60 mg Hydromorphone HCl (Hydromorphone Hcl 0.5 Mg/0.5 Ml Inj) 0.5 mg IV Q6H PRN PRN Reason: Pain scale 8-10 (Severe) Last Admin: 10/10/22 05:29 Dose: 0.5 mg Dextrose (D10w 500 Ml Ivpb) 500 mls @ 0 mls/hr IV .Q0M [facility] Levofloxacin/Dextrose (Levaquin 750 Mg/150 Ml Ivpb (Premix)) 750 mg in 150 mls @ 100 mls/hr IV Q48H [facility] Last Admin: 10/09/22 16:32 Dose: 150 mls Metronidazole/Sodium Chloride (Flagyl 500mg/100 Ml Iv Premix) 500 mg in 100 mls @ 200 mls/hr IV Q6H [facility]; Protocol Last Admin: 10/10/22 14:08 Dose: 100 mls Ipratropium [place] (Ipratropium Brom 0.5mg/2.5ml) 0.5 mg NEB [id number] [facility] Last Admin: 10/10/22 13:35 Dose: 0.5 mg Levalbuterol HCl (Levalbuterol 1.25 Mg/3 Ml Neb) 1.25 mg NEB [id number] [facility] Last Admin: 10/10/22 13:35 Dose: 1.25 mg Levothyroxine Sodium (Levothyroxine Sod 0.075 Mg Tab) 0.075 mg PO DAILYAC [facility] Last Admin: 10/10/22 06:27 Dose: 0.075 mg Lidocaine (Lidocaine 4% Patch) 1 patch TOP DAILY [facility] Last Admin: 10/10/22 08:47 Dose: 1 patch Metoprolol Tartrate (Metoprolol Tar 50 Mg Tab) 50 mg PO BID [facility] Last Admin: 10/10/22 08:47 Dose: 50 mg Naloxone HCl (Naloxone 0.4 Mg/Ml Vial) 0.4 mg IV PRN PRN PRN Reason: Resp <8, Stuporous/Unarousable Ondansetron HCl (Ondansetron 4 Mg/2 Ml Vial) 4 mg IV Q6HP PRN PRN Reason: NAUSEA / VOMITING Last Admin: 10/09/22 11:46 Dose: 4 mg Pantoprazole Sodium (Pantoprazole 40 Mg Inj) 40 mg IVP DAILY [facility]; Protocol Last Admin: 10/10/22 08:46 Dose: 40 mg Quetiapine Fumarate (Quetiapine 100mg Tab) 200 mg PO BEDTIME [facility] Last Admin: 10/09/22 20:30 Dose: 200 mg Ropinirole HCl (Ropinirole Hcl 0.25 Mg Tab) 0.5 mg PO TID [facility] Last Admin: 10/10/22 14:09 Dose: 0.5 mg Sodium Chloride (Sodium Chloride 0.9% 10ml Inj) 10 ml IV UD PRN PRN Reason: Diluant Sodium Chloride (Flush Normal Saline 10 Ml) 10 ml IV BID [facility] Last Admin: 10/10/22 08:47 Dose: 10 ml Trazodone HCl (Trazodone 50 Mg Tablet) 100 mg PO BEDTIME [facility] Last Admin: 10/09/22 20:29 Dose: 100 mg Microbiology Results 09/25/22 11:35 Blood - Blood Aerobic Blood Culture - Final No growth in 5 days. 09/25/22 11:35 Blood - Blood Anaerobic Blood Culture - Final No growth in 5 days. 09/25/22 11:30 Blood - Blood Aerobic Blood Culture - Final No growth in 5 days. 09/25/22 11:30 Blood - Blood Anaerobic Blood Culture - Final No growth in 5 days. Assessment/ Plan: Nephrology No dyspnea No chest pain Somnolent No acute events overnight Vitals, medications, blood work and imaging reviewed in the chart. General: Oriented x3, Cooperative, NAD HEENT: Atraumatic Neck: Supple Respiratory: Clear to auscultation bilaterally Cardiovascular: No edema, Regular rate/rhythm Gastrointestinal: Hypoactive, Tenderness Musculoskeletal: No clubbing, No contractures Integumentary: No rashes, No cyanosis Neurological: Normal speech Laboratory Data (last 24 hrs) 09/25/22 11:35: Phosphorus 5.2 H, Magnesium 2.2 Imagings Data: EXAM DESCRIPTION: CT - Abdomen Pelvis Wo Contrast - 09/25/2022 12:02 pm CLINICAL HISTORY: abdominal pain, vomiting COMPARISON: Chest For Pe Angio dated 05/30/2022; Chest For Pe Angio dated 04/05/2022 TECHNIQUE: Thin cut axial CT imaging of the abdomen and pelvis was performed without IV contrast. Multiplanar reformats were generated and reviewed. All CT scans are performed using dose optimization technique as appropriate and may include automated exposure control or mA/KV adjustment according to patient size. FINDINGS: No suspicious findings in the lung bases. The liver, spleen, and pancreas show no suspicious findings. Gallbladder and biliary tree are also without suspicious finding. Symmetric renal contour, with stable hyperdensity along the renal medulla, could relate to medullary nephrocalcinosis, appears stable. Suspected lateral left renal mid pole 7 millimeter cyst, not well characterized. No other suspicious parenchymal findings within limits of noncont rast technique. No evidence of radiopaque calculi or hydroureteronephrosis. Markedly dilated proximal small bowel loops, with air-fluid levels. Abrupt transition to nondistended bowel in the right paramidline abdomen, just above the umbilicus, see sagittal image 56 series 203. Distal nondistended small bowel to the level of the ileocecal junction. Mild inflammatory changes throughout the mesenteric. No free air, free fluid or inflammatory stranding. No hernia, mass or bulky lymphadenopathy. Fusiform aneurysmal dilation of the distal descending thoracic and suprarenal abdominal aorta, with maximum aneurysm diameters 3.6 x 3.4 centimeter. This is not significantly changed. The urinary bladder is suboptimally distended limiting evaluation. No suspicious bony findings. IMPRESSION: Findings concerning for small bowel obstruction with abrupt transition to nondistended bowel in the right paramidline abdomen just above the level of the umbilicus. Other incidental findings as above. EXAM DESCRIPTION: RAD - Abdomen 1 View (KUB) - 09/26/2022 11:21 am CLINICAL HISTORY: f/u SBO COMPARISON: Abdomen 1 View (KUB) dated 12/14/2015; Abdomen Pelvis Wo Contrast dated 09/25/2022 TECHNIQUE: Single AP view of the abdomen. FINDINGS: Relative paucity of bowel gas throughout the abdomen. Mild stool and gaseous content throughout the colon. Distended loops of bowel in the left flank and left upper quadrant, may relate to small bowel, up to 4.6 centimeter in caliber. . No air-fluid levels, free air, or pneumatosis. No suspicious calcifications. No significant bony abnormality. IMPRESSION: Distended loops of bowel in the left flank and left upper quadrant which may relate to small bowel, again suggestive of bowel obstruction. Paucity of bowel gas elsewhere. Conclusions/Impression: Stage II BRADEN likely due to hypovolemia, resolved CKD II with proteinuria -No NSAIDs Hyponatremia/ Hypernatremia, resolved Hypokalemia/ Hyperkalemia -Replete prn Metabolic Alkalosis in the setting of COPD, improving -Replete potassium prn Hypophosphatemia -Encourage nutrition HTN with CKD -Metoprolol 50mg BID Anemia in chronic illness Thrombocytopenia -Monitor CBC -Transfer PRBC prn AAA 3.6cm -Consider statin Cigarette smoker -Recommend cessation SBO -Advance diet as tolerated -Surgery following
[2022-10-10] MEDS: TRAZODONE 50 MG TABLET PO SCH (21:15)
[2022-10-10] MEDS: QUETIAPINE 100MG TAB PO SCH (21:16)
[2022-10-11] MEDS: LEVALBUTEROL 1.25 MG/3 ML NEB NEB SCH ×4 (01:15→19:50)
[2022-10-11] MEDS: IPRATROPIUM BROM 0.5MG/2.5ML NEB SCH ×5 (01:15→20:00)
[2022-10-11] MEDS: METRONIDAZOLE 500mg IVPB 500 MG/100 ML BAG IV SCH ×4 (03:31→20:41)
[2022-10-11] MEDS: HYDROCODONE/APAP 5/325 MG TAB PO PRN ×2 (05:35→09:24)
[2022-10-11] MEDS: LEVOTHYROXINE SOD 0.075 MG TAB PO SCH (05:36)
[2022-10-11] MEDS: DULOXETINE 30 MG CAP PO SCH (08:09)
[2022-10-11] MEDS: ROPINIROLE HCL 0.25 MG TAB PO SCH ×3 (08:10→20:41)
[2022-10-11] MEDS: METOPROLOL TAR 50 MG TAB PO SCH ×2 (08:10→20:41)
[2022-10-11] MEDS: LIDOCAINE 4% PATCH TOP SCH (08:10)
[2022-10-11] MEDS: PANTOPRAZOLE 40 MG INJ IVP SCH (08:10)
[2022-10-11] MEDS: ONDANSETRON 4 MG/2 ML VIAL IV PRN ×2 (08:15→17:51)
[2022-10-11] MEDS: ARFORMOTEROL TARTRATE 15 MCG/2 ML VIAL.NEB NEB SCH ×2 (09:01→19:50)
[2022-10-11] MEDS: Levofloxacin 750mg IV 750 MG/150 ML BAG IV SCH (17:53)
[2022-10-11] MEDS ORDERED: PROMETHAZINE INJ 25 MG/ML AMP IV ONE (19:48)
[2022-10-11] MEDS: HYDROMORPHONE HCL 0.5 MG/0.5 ML INJ IV PRN (20:40)
[2022-10-11] MEDS: TRAZODONE 50 MG TABLET PO SCH (20:41)
[2022-10-11] MEDS: QUETIAPINE 100MG TAB PO SCH (20:42)
--- NOTE | 2022-10-11 23:22 | P.PN ---
Date of Service: 10/11/22 Vital Signs Temp Pulse Resp BP Pulse Ox 97.6 F 108 H 17 132/63 99 10/11/22 20:00 10/11/22 20:41 10/11/22 20:40 10/11/22 20:41 10/11/22 20:40 Medications Acetaminophen (Acetaminophen 650mg/Rect Supp) 650 mg [place] Q6H PRN PRN Reason: TEMP > 100.4' F Last Admin: 10/07/22 15:07 Dose: 650 mg Arformoterol Tartrate (Arformoterol Tartrate 15 Mcg/2 Ml Vial.Neb) 15 mcg NEB BIDRESP [facility] Last Admin: 10/11/22 19:50 Dose: 15 mcg Duloxetine HCl (Duloxetine 30 Mg Cap) 60 mg PO DAILY [facility] Last Admin: 10/11/22 08:09 Dose: 60 mg Hydromorphone HCl (Hydromorphone Hcl 0.5 Mg/0.5 Ml Inj) 0.5 mg IV Q6H PRN PRN Reason: Pain scale 8-10 (Severe) Last Admin: 10/11/22 20:40 Dose: 0.5 mg Dextrose (D10w 500 Ml Ivpb) 500 mls @ 0 mls/hr IV .Q0M [facility] Levofloxacin/Dextrose (Levaquin 750 Mg/150 Ml Ivpb (Premix)) 750 mg in 150 mls @ 100 mls/hr IV Q48H [facility] Last Admin: 10/11/22 17:53 Dose: 150 mls Metronidazole/Sodium Chloride (Flagyl 500mg/100 Ml Iv Premix) 500 mg in 100 mls @ 200 mls/hr IV Q6H [facility]; Protocol Last Admin: 10/11/22 20:41 Dose: 100 mls Ipratropium [place] (Ipratropium Brom 0.5mg/2.5ml) 0.5 mg NEB [id number] [facility] Last Admin: 10/11/22 20:00 Dose: Not Given Levalbuterol HCl (Levalbuterol 1.25 Mg/3 Ml Neb) 1.25 mg NEB [id number] [facility] Last Admin: 10/11/22 19:50 Dose: 1.25 mg Levothyroxine Sodium (Levothyroxine Sod 0.075 Mg Tab) 0.075 mg PO DAILYAC [facility] Last Admin: 10/11/22 05:36 Dose: 0.075 mg Lidocaine (Lidocaine 4% Patch) 1 patch TOP DAILY [facility] Last Admin: 10/11/22 08:10 Dose: 1 patch Metoprolol Tartrate (Metoprolol Tar 50 Mg Tab) 50 mg PO BID [facility] Last Admin: 10/11/22 20:41 Dose: 50 mg Naloxone HCl (Naloxone 0.4 Mg/Ml Vial) 0.4 mg IV PRN PRN PRN Reason: Resp <8, Stuporous/Unarousable Ondansetron HCl (Ondansetron 4 Mg/2 Ml Vial) 4 mg IV Q6HP PRN PRN Reason: NAUSEA / VOMITING Last Admin: 10/11/22 17:51 Dose: 4 mg Pantoprazole Sodium (Pantoprazole 40 Mg Inj) 40 mg IVP DAILY [facility]; Protocol Last Admin: 10/11/22 08:10 Dose: 40 mg Quetiapine Fumarate (Quetiapine 100mg Tab) 200 mg PO BEDTIME [facility] Last Admin: 10/11/22 20:42 Dose: 200 mg Ropinirole HCl (Ropinirole Hcl 0.25 Mg Tab) 0.5 mg PO TID [facility] Last Admin: 10/11/22 20:41 Dose: 0.5 mg Sodium Chloride (Sodium Chloride 0.9% 10ml Inj) 10 ml IV UD PRN PRN Reason: Diluant Sodium Chloride (Flush Normal Saline 10 Ml) 10 ml IV BID [facility] Last Admin: 10/11/22 20:42 Dose: 10 ml Trazodone HCl (Trazodone 50 Mg Tablet) 100 mg PO BEDTIME [facility] Last Admin: 10/11/22 20:41 Dose: 100 mg Microbiology Results 09/25/22 11:35 Blood - Blood Aerobic Blood Culture - Final No growth in 5 days. 09/25/22 11:35 Blood - Blood Anaerobic Blood Culture - Final No growth in 5 days. 09/25/22 11:30 Blood - Blood Aerobic Blood Culture - Final No growth in 5 days. 09/25/22 11:30 Blood - Blood Anaerobic Blood Culture - Final No growth in 5 days. Assessment/ Plan: Nephrology No dyspnea No chest pain Feeling better Nurse reports she walked with the walker No acute events overnight Vitals, medications, blood work and imaging reviewed in the chart. General: Oriented x3, Cooperative, NAD HEENT: Atraumatic Neck: Supple Respiratory: Clear to auscultation bilaterally Cardiovascular: No edema, Regular rate/rhythm Gastrointestinal: Hypoactive, Tenderness Musculoskeletal: No clubbing, No contractures Integumentary: No rashes, No cyanosis Neurological: Normal speech Laboratory Data (last 24 hrs) 09/25/22 11:35: Phosphorus 5.2 H, Magnesium 2.2 Imagings Data: EXAM DESCRIPTION: CT - Abdomen Pelvis Wo Contrast - 09/25/2022 12:02 pm CLINICAL HISTORY: abdominal pain, vomiting COMPARISON: Chest For Pe Angio dated 05/30/2022; Chest For Pe Angio dated 04/05/2022 TECHNIQUE: Thin cut axial CT imaging of the abdomen and pelvis was performed without IV contrast. Multiplanar reformats were generated and reviewed. All CT scans are performed using dose optimization technique as appropriate and may include automated exposure control or mA/KV adjustment according to patient size. FINDINGS: No suspicious findings in the lung bases. The liver, spleen, and pancreas show no suspicious findings. Gallbladder and biliary tree are also without suspicious finding. Symmetric renal contour, with stable hyperdensity along the renal medulla, could relate to medullary nephrocalcinosis, appears stable. Suspected lateral left renal mid pole 7 millimeter cyst, not well characterized. No other suspicious parenchymal findings within limits of noncontrast technique. No evidence of radiopaque calculi or hydroureteronephrosis. Markedly dilated proximal small bowel loops, with air-fluid levels. Abrupt transition to nondistended bowel in the right paramidline abdomen, just above the umbilicus, see sagittal image 56 series 203. Distal nondistended small bowel to the level of the ileocecal junction. Mild inflammatory changes throughout the mesenteric. No free air, free fluid or inflammatory stranding. No hernia, mass or bulky lymphadenopathy. Fusiform aneurysmal dilation of the distal descending thoracic and suprarenal abdominal aorta, with maximum aneurysm diameters 3.6 x 3.4 centimeter. This is not significantly changed. The urinary bladder is suboptimally distended limiting evaluation. No suspicious bony findings. IMPRESSION: Findings concerning for small bowel obstruction with abrupt transition to nondistended bowel in the right paramidline abdomen just above the level of the umbilicus. Other incidental findings as above. EXAM DESCRIPTION: RAD - Abdomen 1 View (KUB) - 09/26/2022 11:21 am CLINICAL HISTORY: f/u SBO COMPARISON: Abdomen 1 View (KUB) dated 12/14/2015; Abdomen Pelvis Wo Contrast dated 09/25/2022 TECHNIQUE: Single AP view of the abdomen. FINDINGS: Relative paucity of bowel gas throughout the abdomen. Mild stool and gaseous content throughout the colon. Distended loops of bowel in the left flank and left upper quadrant, may relate to small bowel, up to 4.6 centimeter in caliber. . No air-fluid levels, free air, or pneumatosis. No suspicious calcifications. No significant bony abnormality. IMPRESSION: Distended loops of bowel in the left flank and left upper quadrant which may relate to small bowel, again suggestive of bowel obstruction. Paucity of bowel gas elsewhere. Conclusions/Impression: Stage II BRADEN likely due to hypovolemia, resolved CKD II with proteinuria -No NSAIDs Hyponatremia/ Hypernatremia, resolved Hypokalemia/ Hyperkalemia -Replete prn Metabolic Alkalosis in the setting of COPD, improving -Replete potassium prn Hypophosphatemia -Encourage nutrition HTN with CKD -Metoprolol 50mg BID Anemia in chronic illness Thrombocytopenia -Monitor CBC -Transfer PRBC prn AAA 3.6cm -Consider statin Cigarette smoker -Recommend cessation SBO -Advance diet as tolerated -Surgery following
[2022-10-12] MEDS: LEVALBUTEROL 1.25 MG/3 ML NEB NEB SCH ×4 (01:20→20:00)
[2022-10-12] MEDS: IPRATROPIUM BROM 0.5MG/2.5ML NEB SCH ×4 (02:00→20:00)
[2022-10-12] MEDS: METRONIDAZOLE 500mg IVPB 500 MG/100 ML BAG IV SCH ×4 (02:53→20:54)
[2022-10-12] MEDS: LEVOTHYROXINE SOD 0.075 MG TAB PO SCH (05:54)
[2022-10-12] MEDS: HYDROMORPHONE HCL 0.5 MG/0.5 ML INJ IV PRN ×3 (05:54→23:34)
[2022-10-12 06:21] LABS: Absolute Lymphocytes (CBC) 0.9 K/uL (0.7-4.9); Hematocrit 28.3 % (36.0-45.0); Lymphocytes % 14.6 % (15.3-44.8); MCV 85.5 fL (80-100); MPV 9.2 fL (7.6-11.3); RBC Red Blood Cell Count 3.31 M/uL (3.86-4.86)
[2022-10-12 06:35] LABS: Potassium 3.6 mEq/L (3.5-5.1)
[2022-10-12] MEDS: LIDOCAINE 4% PATCH TOP SCH (08:07)
[2022-10-12] MEDS: DULOXETINE 30 MG CAP PO SCH (08:08)
[2022-10-12] MEDS: METOPROLOL TAR 50 MG TAB PO SCH ×2 (08:08→20:53)
[2022-10-12] MEDS: ROPINIROLE HCL 0.25 MG TAB PO SCH ×3 (08:08→20:53)
[2022-10-12] MEDS: PANTOPRAZOLE 40 MG INJ IVP SCH (08:08)
[2022-10-12] MEDS ORDERED: POTASSIUM CL SA 10 MEQ TAB PO ONE (09:00)
[2022-10-12] MEDS: ARFORMOTEROL TARTRATE 15 MCG/2 ML VIAL.NEB NEB SCH ×2 (09:13→20:00)
[2022-10-12] MEDS: ONDANSETRON 4 MG/2 ML VIAL IV PRN (14:28)
[2022-10-12] MEDS: QUETIAPINE 100MG TAB PO SCH (20:53)
[2022-10-12] MEDS: TRAZODONE 50 MG TABLET PO SCH (20:54)
--- NOTE | 2022-10-12 21:54 | P.PN ---
Date of Service: 10/12/22 Vital Signs Temp Pulse Resp BP Pulse Ox 97.2 F 97 H 17 131/68 97 10/12/22 20:00 10/12/22 20:53 10/12/22 20:00 10/12/22 20:53 10/12/22 20:00 Medications Acetaminophen (Acetaminophen 650mg/Rect Supp) 650 mg [place] Q6H PRN PRN Reason: TEMP > 100.4' F Last Admin: 10/07/22 15:07 Dose: 650 mg Arformoterol Tartrate (Arformoterol Tartrate 15 Mcg/2 Ml Vial.Neb) 15 mcg NEB BIDRESP [facility] Last Admin: 10/12/22 20:00 Dose: Not Given Duloxetine HCl (Duloxetine 30 Mg Cap) 60 mg PO DAILY [facility] Last Admin: 10/12/22 08:08 Dose: 60 mg Hydromorphone HCl (Hydromorphone Hcl 0.5 Mg/0.5 Ml Inj) 0.5 mg IV Q6H PRN PRN Reason: Pain scale 8-10 (Severe) Last Admin: 10/12/22 15:38 Dose: 0.5 mg Dextrose (D10w 500 Ml Ivpb) 500 mls @ 0 mls/hr IV .Q0M [facility] Levofloxacin/Dextrose (Levaquin 750 Mg/150 Ml Ivpb (Premix)) 750 mg in 150 mls @ 100 mls/hr IV Q48H [facility] Last Admin: 10/11/22 17:53 Dose: 150 mls Metronidazole/Sodium Chloride (Flagyl 500mg/100 Ml Iv Premix) 500 mg in 100 mls @ 200 mls/hr IV Q6H [facility]; Protocol Last Admin: 10/12/22 20:54 Dose: 100 mls Ipratropium [place] (Ipratropium Brom 0.5mg/2.5ml) 0.5 mg NEB [id number] [facility] Last Admin: 10/12/22 20:00 Dose: Not Given Levalbuterol HCl (Levalbuterol 1.25 Mg/3 Ml Neb) 1.25 mg NEB [id number] [facility] Last Admin: 10/12/22 20:00 Dose: Not Given Levothyroxine Sodium (Levothyroxine Sod 0.075 Mg Tab) 0.075 mg PO DAILYAC [facility] Last Admin: 10/12/22 05:54 Dose: 0.075 mg Lidocaine (Lidocaine 4% Patch) 1 patch TOP DAILY [facility] Last Admin: 10/12/22 08:07 Dose: 1 patch Metoprolol Tartrate (Metoprolol Tar 50 Mg Tab) 50 mg PO BID [facility] Last Admin: 10/12/22 20:53 Dose: 50 mg Naloxone HCl (Naloxone 0.4 Mg/Ml Vial) 0.4 mg IV PRN PRN PRN Reason: Resp <8, Stuporous/Unarousable Ondansetron HCl (Ondansetron 4 Mg/2 Ml Vial) 4 mg IV Q6HP PRN PRN Reason: NAUSEA / VOMITING Last Admin: 10/12/22 14:28 Dose: 4 mg Pantoprazole Sodium (Pantoprazole 40 Mg Inj) 40 mg IVP DAILY [facility]; Protocol Last Admin: 10/12/22 08:08 Dose: 40 mg Quetiapine Fumarate (Quetiapine 100mg Tab) 200 mg PO BEDTIME [facility] Last Admin: 10/12/22 20:53 Dose: 200 mg Ropinirole HCl (Ropinirole Hcl 0.25 Mg Tab) 0.5 mg PO TID [facility] Last Admin: 10/12/22 20:53 Dose: 0.5 mg Sodium Chloride (Sodium Chloride 0.9% 10ml Inj) 10 ml IV UD PRN PRN Reason: Diluant Sodium Chloride (Flush Normal Saline 10 Ml) 10 ml IV BID [facility] Last Admin: 10/12/22 20:54 Dose: 10 ml Trazodone HCl (Trazodone 50 Mg Tablet) 100 mg PO BEDTIME [facility] Last Admin: 10/12/22 20:54 Dose: 100 mg Microbiology Results 09/25/22 11:35 Blood - Blood Aerobic Blood Culture - Final No growth in 5 days. 09/25/22 11:35 Blood - Blood Anaerobic Blood Culture - Final No growth in 5 days. 09/25/22 11:30 Blood - Blood Aerobic Blood Culture - Final No growth in 5 days. 09/25/22 11:30 Blood - Blood Anaerobic Blood Culture - Final No growth in 5 days. Assessment/ Plan: Nephrology No dyspnea No chest pain Feeling better No acute events overnight Vitals, medications, blood work and imaging reviewed in the chart. General: Oriented x3, Cooperative, NAD HEENT: Atraumatic Neck: Supple Respiratory: Clear to auscultation bilaterally Cardiovascular: No edema, Regular rate/rhythm Gastrointestinal: Hypoactive, Tenderness Musculoskeletal: No clubbing, No contractures Integumentary: No rashes, No cyanosis Neurological: Normal speech Laboratory Data (last 24 hrs) 09/25/22 11:35: Phosphorus 5.2 H, Magnesium 2.2 Imagings Data: EXAM DESCRIPTION: CT - Abdomen Pelvis Wo Contrast - 09/25/2022 12:02 pm CLINICAL HISTORY: abdominal pain, vomiting COMPARISON: Chest For Pe Angio dated 05/30/2022; Chest For Pe Angio dated 04/05/2022 TECHNIQUE: Thin cut axial CT imaging of the abdomen and pelvis was performed without IV contrast. Multiplanar reformats were generated and reviewed. All CT scans are performed using dose optimization technique as appropriate and may include automated exposure control or mA/KV adjustment according to patient size. FINDINGS: No suspicious findings in the lung bases. The liver, spleen, and pancreas show no suspicious findings. Gallbladder and biliary tree are also without suspicious finding. Symmetric renal contour, with stable hyperdensity along the renal medulla, could relate to medullary nephrocalcinosis, appears stable. Suspected lateral left renal mid pole 7 millimeter cyst, not well characterized. No other suspicious parenchymal findings within limits of noncontrast technique. No evidence of radiopaque calculi or hydroureteronephrosis. Markedly dilated proximal small bowel loops, with air-fluid levels. Abrupt transition to nondistended bowel in the right paramidline abdomen, just above the umbilicus, see sagittal image 56 series 203. Distal nondistended small bowel to the level of the ileocecal junction. Mild inflammatory changes throughout the mesenteric. No free air, free fluid or inflammatory stranding. No hernia, mass or bulky lymphadenopathy. Fusiform aneurysmal dilation of the distal descending thoracic and suprarenal abdominal aorta, with maximum aneurysm diameters 3.6 x 3.4 centimeter. This is not significantly changed. The urinary bladder is suboptimally distended limiting evaluation. No suspicious bony findings. IMPRESSION: Findings concerning for small bowel obstruction with abrupt transition to nondistended bowel in the right paramidline abdomen just above the level of the umbilicus. Other incidental findings as above. EXAM DESCRIPTION: RAD - Abdomen 1 View (KUB) - 09/26/2022 11:21 am CLINICAL HISTORY: f/u SBO COMPARISON: Abdomen 1 View (KUB) dated 12/14/2015; Abdomen Pelvis Wo Contrast dated 09/25/2022 TECHNIQUE: Single AP view of the abdomen. FINDINGS: Relative paucity of bowel gas throughout the abdomen. Mild stool and g aseous content throughout the colon. Distended loops of bowel in the left flank and left upper quadrant, may relate to small bowel, up to 4.6 centimeter in caliber. . No air-fluid levels, free air, or pneumatosis. No suspicious calcifications. No significant bony abnormality. IMPRESSION: Distended loops of bowel in the left flank and left upper quadrant which may relate to small bowel, again suggestive of bowel obstruction. Paucity of bowel gas elsewhere. Conclusions/Impression: Stage II BRADEN likely due to hypovolemia, resolved CKD II with proteinuria -No NSAIDs Hyponatremia/ Hypernatremia, resolved Hypokalemia/ Hyperkalemia -Replete prn Metabolic Alkalosis in the setting of COPD, improving -Replete potassium prn Hypophosphatemia -Encourage nutrition HTN with CKD -Metoprolol 50mg BID Anemia in chronic illness Thrombocytopenia -Monitor CBC -Transfer PRBC prn AAA 3.6cm -Consider statin Cigarette smoker -Recommend cessation SBO -Advance diet as tolerated -Surgery following
[2022-10-13] MEDS: IPRATROPIUM BROM 0.5MG/2.5ML NEB SCH ×3 (02:00→14:00)
[2022-10-13] MEDS: LEVALBUTEROL 1.25 MG/3 ML NEB NEB SCH ×3 (02:00→14:20)
[2022-10-13] MEDS: METRONIDAZOLE 500mg IVPB 500 MG/100 ML BAG IV SCH ×3 (02:49→14:09)
[2022-10-13] MEDS: LEVOTHYROXINE SOD 0.075 MG TAB PO SCH (05:48)
[2022-10-13] MEDS: HYDROMORPHONE HCL 0.5 MG/0.5 ML INJ IV PRN (05:56)
[2022-10-13 06:30] LABS: Potassium 3.7 mEq/L (3.5-5.1)
[2022-10-13] MEDS: ARFORMOTEROL TARTRATE 15 MCG/2 ML VIAL.NEB NEB SCH (08:20)
[2022-10-13] MEDS: LIDOCAINE 4% PATCH TOP SCH (08:45)
[2022-10-13] MEDS: ROPINIROLE HCL 0.25 MG TAB PO SCH ×2 (08:46→13:05)
[2022-10-13] MEDS: DULOXETINE 30 MG CAP PO SCH (08:46)
[2022-10-13] MEDS: PANTOPRAZOLE 40 MG INJ IVP SCH (08:46)
[2022-10-13] MEDS: METOPROLOL TAR 50 MG TAB PO SCH (08:46)
[2022-10-13] MEDS ORDERED: POTASSIUM CL SA 10 MEQ TAB PO ONE (09:00)
[2022-10-13 10:07] VITALS: O2SAT 92
[2022-10-13 16:16] VITALS: BP 133/81; TEMP 97.6
== END 2022-10-13 19:30 | DRG 329 ==
LOC: ER 10:22 → ERHOLD 16:19 → 4TH 09-26 13:46
PROVIDERS: ADMIT Hospitalist; ATTEND Hospitalist
PROC: 0DT80ZZ Resection of Small Intestine, Open Approach (ICD-10-PCS; principal; 2022-09-28 10:15)
PROC: 3E0336Z Introduction of Nutritional Substance into Peripheral Vein, Percutaneous Approach (ICD-10-PCS; 2022-09-30)
PROC: 5A09557 Assistance with Respiratory Ventilation, Greater than 96 Consecutive Hours, Continuous Positive Airway Pressure (ICD-10-PCS; 2022-10-02)
DX: K91.30 Postprocedural intestinal obstruction, unspecified as to partial versus complete (principal); E43 Unspecified severe protein-calorie malnutrition; J96.01 Acute respiratory failure with hypoxia; I13.0 Hypertensive heart and chronic kidney disease with heart failure and stage 1 through stage 4 chronic kidney disease, or unspecified chronic kidney disease; I50.22 Chronic systolic (congestive) heart failure; N17.9 Acute kidney failure, unspecified; E87.1 Hypo-osmolality and hyponatremia; E87.3 Alkalosis; Z68.1 Body mass index [BMI] 19.9 or less, adult; J44.1 Chronic obstructive pulmonary disease with (acute) exacerbation; R18.8 Other ascites; N18.31 Chronic kidney disease, stage 3a; E03.9 Hypothyroidism, unspecified; M19.90 Unspecified osteoarthritis, unspecified site; K21.9 Gastro-esophageal reflux disease without esophagitis; G25.81 Restless legs syndrome; F41.9 Anxiety disorder, unspecified; F32.A Depression, unspecified; I71.40 Abdominal aortic aneurysm, without rupture, unspecified; D63.1 Anemia in chronic kidney disease; D69.6 Thrombocytopenia, unspecified; E87.6 Hypokalemia; G47.00 Insomnia, unspecified; E83.39 Other disorders of phosphorus metabolism; E87.5 Hyperkalemia; F17.210 Nicotine dependence, cigarettes, uncomplicated; R73.9 Hyperglycemia, unspecified; R79.89 Other specified abnormal findings of blood chemistry; Z88.1 Allergy status to other antibiotic agents; Z91.041 Radiographic dye allergy status; Z88.8 Allergy status to other drugs, medicaments and biological substances; Z99.81 Dependence on supplemental oxygen; Z79.52 Long term (current) use of systemic steroids; Z79.82 Long term (current) use of aspirin; Z86.73 Personal history of transient ischemic attack (TIA), and cerebral infarction without residual deficits; Z90.49 Acquired absence of other specified parts of digestive tract; Z90.710 Acquired absence of both cervix and uterus; Z91.048 Other nonmedicinal substance allergy status; Z79.899 Other long term (current) drug therapy; Z79.890 Hormone replacement therapy; Z20.822 Contact with and (suspected) exposure to COVID-19; Y83.8 Other surgical procedures as the cause of abnormal reaction of the patient, or of later complication, without mention of misadventure at the time of the procedure
CPT/HCPCS: 36415; 36430; 36569; 71045; 71250; 74018; 74176; 80048; 80053; 81001; 82043; 82570; 82805; 82947; 83036; 83605; 83690; 83735; 83880; 84100; 84132; 84134; 84156; 84439; 84443; 84550; 85014; 85018; 85025; 85027; 86850; 86900; 86901; 86920; 87040; 88307; 93306; 94002; 94003; 94010; 94640; 94660; 94760; 96361; 96374; 96375; 97110; 97112; 97161; 97530; 99285; A4216; C9113; J0690; J1170; J1200; J1650; J1652; J1815; J1940; J2001; J2250; J2370; J2405; J2550; J2704; J2710; J2920; J3010; J3475; J3480; J7030; J7040; J7042; J7050; J7120; J7605; J7614; J7644; J7799; P9016; P9047; U0003

== ENCOUNTER 2023-04-27 16:02 | Emergency (ER) | payer OTHER ==
--- OUTSIDE RECORDS SUMMARY | 2023-04-27 16:06 | XMS REPORT | Continuity of Care Document ---
:1950 Author Organization [facility] t Address [address] [place] [address] Care Team Providers Name Role Phone Jodie Patterson Attending Clinician Unavailable Kaylene Polo Attending Clinician Unavailable Payers Payer Name Policy Type Policy Number Effective Date Expiration Date S ource MEDICARE MB [id number] 2013 [facility] NOVITAS 00:00:00 - [facility] Problems Condition Condition Condition Status Onset Resolution Last Treating Co mments Source Name Details Category Date Date Treatment Clinician Date [id number] Sciatica, Problem Comm on left side [facility] [id number] Coronary Problem Comm on artery Spirit disease - [facility] involving [facility] coronary Medical artery of [place] heart without angina pectoris [id number] Frequency Problem Com mon of Spirit urination - [facility] [id number] GERD Problem Common without Spirit esophagiti - CHI s [facility] [id number] Bronchitis Problem Com mon Spirit - [facility] [id number] 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 s without s without St myelopathy myelopathy [facility] [id number] Cigarette Problem Comm on nicotine [facility] dependence - 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 vascular [facility] Hypothyroi Hypothyroi Problem C ommon dism dism [facility] Screening Screening Problem Com mon for breast for breast Sp blu cancer cancer [facility] Depressive Depressive Problem C ommon disorder disorder [facility] [id number] Nausea Problem Common [facility] Benign Benign Problem Common hypertensi hypertensi Sp blu on on - [facility] [id number] Body mass Problem Com mon index Spirit (BMI) less - CHI than 16.5 [facility] COPD - COPD Problem Common Chronic (chronic Spirit obstructiv obstructiv - [facility] e e pulmonary pulmonary [place] s disease disease) [facility] Center [id number] Pneumonia Problem Com mon due to Spirit infectious - [facility] organism, St [facility] laterality [facility] , unspecifie d part of lung 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 accident accident [facility] [id number] Wheezing Problem Commo n Spirit [facility] [id number] Restless Problem Commo n leg [facility] [id number] Cough Problem Common [facility] [id number] Acute Problem Common exacerbati Spirit on of [facility] Center disease (COPD) Iron Other iron Problem Commo n deficiency deficiency Sp blu anemia anemia - [facility] [id number] Chronic Problem Commo n pain Spirit syndrome [facility] [id number] Chronic Problem Commo n obstructiv Spirit e [facility] pulmonary [facility] with acute Medica l lower Center respirator y infection Hypertrigl Hypertrigl Problem C ommon yceridemia yceridemia Sp blu [facility] [id number] Epigastric Problem Com mon pain [facility] Coronary CAD Problem Common artery (coronary Spirit disease artery - [facility] disease) [facility] Allergies, Adverse Reactions, Alerts Allergy Allergy Status Severity Reaction(s) Onset Inactive Treating Comm ents Source Name Type Date Date Clinician baclofen baclofen Active sever Common sleepiness [facility] 463 Drug Active rash Common allergy [facility] zolpidem zolpidem Active makes crazy C ommon [facility] codeine codeine Active itching Common [facility] 0 Drug Active rash, Common allergy blisters [facility] Social History Social Habit Start Date Stop Date Quantity Comments Source History of Tobacco Current Smoker Co mmon Spirit - [facility] Use [facility] Sex Assigned At Com [facility] Smoking Status Start Date Stop Date Source Current Smoker 2022-08-23 00:00:00 [facility] t [facility] Never Smoker [facility] Medications Ordered Filled Start Stop Current Ordering Indication Dosage Frequency Signature Comments Components Source Medication Medication Date Date Medication? Clinician (SIG) Name Name SOLU-Medrol SOLU-Medrol No 125mg Common 3-01 Spirit 00:00: - CHI [facility] SOLU-Medrol SOLU-Medrol 3-0 No 125mg Common 08-23 Spirit 00:00: - [facility]I 00 [facility] SOLU-Medrol SOLU-Medrol 2023-0 No 125mg Common 08-23 Spirit 00:00: - CHI [facility] SOLU-Medrol SOLU-Medrol 3-0 No 125mg Common 08-23 Spirit 00:00: - CHI 00 [facility] SOLU-Medrol SOLU-Medrol 2023-0 No 125mg Common 08-23 Spirit 00:00: - CHI 00 [facility] predniSONE predniSONE 2-0 2022- No 1{table QD predniSONE 10 MG 10 MG 02-23 t} 10 MG 00:00: 00:00 00 :00 predniSONE predniSONE 2021-0 2022- No 1{table QD predniSONE 10 MG 10 MG 02-23 t} 10 MG 00:00: 00:00 00 :00 predniSONE predniSONE 2-0 2022- No 1{table QD predniSONE 10 MG 10 MG 02-23 t} 10 MG 00:00: 00:00 00 :00 predniSONE predniSONE 2022-0 2022- No 1{table QD predniSONE 10 MG 10 MG 02-23 t} 10 MG 00:00: 00:00 00 :00 Doxycycline Doxycycline 2022-0 2022- No 1{capsu QD Doxycyclin Hyclate 100 Hyclate 100 02-23 le} e Hyclate MG MG 00:00: 00:00 100 MG 00 :00 Doxycycline Doxycycline 2022-0 2022- No 1{capsu QD Doxycyclin Hyclate 100 Hyclate 100 02-23 le} e Hyclate MG MG 00:00: 00:00 100 MG 00 :00 predniSONE predniSONE 2020-1 2022- No 1{table QD predniSONE 10 MG 10 MG 08-02 t} 10 MG 00:00: 00:00 00 :00 predniSONE predniSONE 202-1 2022- No 1{table QD predniSONE 10 MG 10 MG 08-02 t} 10 MG 00:00: 00:00 00 :00 predniSONE predniSONE 2020-1 2022- No 1{table QD predniSONE 10 MG 10 MG 08-02 t} 10 MG 00:00: 00:00 00 :00 predniSONE predniSONE 2020-2021- No 1{table QD predniSONE 10 MG 10 MG 08-02 t} 10 MG 00:00: 00:00 00 :00 predniSONE predniSONE 2020-2021- No 1{table QD predniSONE 10 MG 10 MG 08-02 t} 10 MG 00:00: 00:00 00 :00 predniSONE predniSONE 2020-06- No 1{table QD predniSONE 10 MG 10 MG 08-02 t} 10 MG 00:00: 00:00 00 :00 predniSONE predniSONE 2020-2021- No 1{table QD predniSONE 10 MG 10 MG 08-02 t} 10 MG 00:00: 00:00 00 :00 predniSONE predniSONE 2020-2021- No 1{table QD predniSONE 10 MG 10 MG 08-02 t} 10 MG 00:00: 00:00 00 :00 predniSONE predniSONE 2020-06- No 1{table QD predniSONE 10 MG 10 MG 08-02 t} 10 MG 00:00: 00:00 00 :00 Trelegy Trelegy 2018- 2020- No Kaylene 1 puff Com mon Ellipta Ellipta 1-26 -25 [place] Spirit 00:00: 00:00 - CHI 00 :00 [facility] Ondansetron Ondansetron 2019-0 Yes Kaylene 1 tablet Common HCl HCl 9-27 [place] as needed Spirit 00:00: - CHI 00 [facility] Aspirin Aspirin Yes Kaylene 1 tablet Comm on Adult Low Adult Low [place] Spir it Strength Strength - CHI [facility] Seroquel Seroquel Yes Kaylene 1 tablet Co mmon [place] Spirit - CHI [facility] Ventolin Ventolin Yes Kaylene INHALE ONE Common HFA HFA [place] TO TWO Spirit PUFFS BY - CHI MOUTH [facility] EVERY [facility] NEEDED FOR Center WHEEZING Metoprolol Metoprolol Yes Kaylene TAKE 1 Common Tartrate Tartrate [place] TABLET BY S pirit MOUTH - CHI TWICE St DAILY WITH [facility] Levothyroxi Levothyroxi Yes Kaylene 1 tablet Common ne Sodium ne Sodium [place] on an Spi rit empty - CHI stomach in [facility] Cymbalta Cymbalta Yes Kaylene 1 capsule C ommon [place] [facility] Vitamin D3 Vitamin D3 Yes Kaylene 1 capsule Common [place] [facility] Ropinirole Ropinirole Yes Kaylene TAKE ONE Common HCl HCl [place] TABLET BY Spirit MOUTH - CHI THREE TIMES [facility] Amlodipine Amlodipine Yes Kaylene take one Common Besylate Besylate [place] tablet by S pirit mouth once - CHI daily [facility] Lopressor Lopressor Yes Kaylene 1 tablet Common [place] with food [facility] Albuterol Albuterol Yes Kaylene 3 ml as C ommon Sulfate Sulfate [place] needed [facility] Trazodone Trazodone Yes Kaylene 3 tabs Co mmon HCl HCl [place] [facility] Gemfibrozil Gemfibrozil Yes Kaylene TAKE 1 Common [place] TABLET BY Spirit MOUTH - CHI TWICE [facility] Pantoprazol Pantoprazol Yes Kaylene 1 tablet Common e Sodium e Sodium [place] [facility] Metoprolol Metoprolol No 1{table BID Metoprolol Tartrate [...] [place] HFA HFA HFA 108MCG/A 108MCG/A 108MCG/A Gemfibrozil Gemfibrozil No Gemfibrozi 600 MG 600 MG l 600 MG Cymbalta 60 Cymbalta 60 No 1{capsu QD Cymbalta MG MG le} 60 MG Aspirin Aspirin No 1{table Aspirin Adult Low Adult Low t} Adult Low Strength 81 Strength 81 Strength MG MG 81 MG Levothyroxi Levothyroxi No QD Levothyrox ne Sodium ne Sodium ine Sodium 75 MCG 75 MCG 75 MCG Albuterol Albuterol No 3{ml_as Albuterol Sulfate Sulfate _needed Sulfate (2.5 (2.5 } (2.5 MG/3ML) MG/3ML) MG/3ML) 0.083% 0.083% 0.083% Ondansetron Ondansetron No Ondansetro HCl 8 MG HCl 8 MG n HCl 8 MG Pantoprazol Pantoprazol No Pantoprazo e Sodium 40 e Sodium 40 le Sodium MG MG 40 MG traZODone traZODone No traZODone HCl 50 MG HCl 50 MG HCl 50 MG amLODIPine amLODIPine No QD amLODIPine Besylate 5 Besylate 5 Besylate 5 MG MG MG Vitamin D3 Vitamin D3 No 1{capsu QD Vitamin D3 1000 UNIT 1000 UNIT le} 1000 UNIT Trelegy Trelegy No Trelegy Ellipta Ellipta Ellipta 100-62.5-25 100-62.5-25 100-62.5-2 MCG/INH MCG/INH 5 MCG/INH rOPINIRole rOPINIRole No rOPINIRole HCl 0.5 MG HCl 0.5 MG HCl 0.5 MG Metoprolol Metoprolol No BID Metoprolol Tartrate 50 Tartrate 50 Tartrate MG MG 50 MG SEROquel SEROquel No 1{table QD SEROquel 200 MG 200 MG t} 200 MG Ventolin Ventolin No [place]olin HFA HFA HFA 108MCG/A 108MCG/A 108MCG/A Gemfibrozil Gemfibrozil No Gemfibrozi 600 MG 600 MG l 600 MG Cymbalta 60 Cymbalta 60 No 1{capsu QD Cymbalta MG MG le} 60 MG Aspirin Aspirin No 1{table Aspirin Adult Low Adult Low t} Adult Low Strength 81 Strength 81 Strength MG MG 81 MG Levothyroxi Levothyroxi No QD Levothyrox ne Sodium ne Sodium ine Sodium 75 MCG 75 MCG 75 MCG Albuterol Albuterol No 3{ml_as Albuterol Sulfate Sulfate _needed Sulfate (2.5 (2.5 } (2.5 MG/3ML) MG/3ML) MG/3ML) 0.083% 0.083% 0.083% Ondansetron Ondansetron No Ondansetro HCl 8 MG HCl 8 MG n HCl 8 MG Pantoprazol Pantoprazol No Pantoprazo e Sodium 40 e Sodium 40 le Sodium MG MG 40 MG traZODone traZODone No traZODone HCl 50 MG HCl 50 MG HCl 50 MG amLODIPine amLODIPine No QD amLODIPine Besylate 5 Besylate 5 Besylate 5 MG MG MG Vitamin D3 Vitamin D3 No 1{capsu QD Vitamin D3 1000 UNIT 1000 UNIT le} 1000 UNIT Trelegy Trelegy No Trelegy Ellipta Ellipta Ellipta 100-62.5-25 100-62.5-25 100-62.5-2 MCG/INH MCG/INH 5 MCG/INH rOPINIRole rOPINIRole No rOPINIRole HCl 0.5 MG HCl 0.5 MG HCl 0.5 MG amLODIPine amLODIPine No amLODIPine Besylate 5 Besylate 5 Besylate 5 MG MG MG Trelegy Trelegy No Trelegy Ellipta Ellipta Ellipta 100-62.5-25 100-62.5-25 100-62.5-2 MCG/INH MCG/INH 5 MCG/INH rOPINIRole rOPINIRole No rOPINIRole HCl 0.5 MG HCl 0.5 MG HCl 0.5 MG Aspirin Aspirin No 1{table Aspirin Adult Low Adult Low t} Adult Low Strength 81 Strength 81 Strength MG MG 81 MG Gemfibrozil Gemfibrozil No Gemfibrozi 600 MG 600 MG l 600 MG Vitamin D3 Vitamin D3 No 1{capsu QD Vitamin D3 1000 UNIT 1000 UNIT le} 1000 UNIT traZODone traZODone No traZODone HCl 50 MG HCl 50 MG HCl 50 MG Pantoprazol Pantoprazol No Pantoprazo e Sodium 40 e Sodium 40 le Sodium MG MG 40 MG Cymbalta 60 Cymbalta 60 No 1{capsu QD Cymbalta MG MG le} 60 MG Albuterol Albuterol No 3{ml_as Albuterol Sulfate Sulfate _needed Sulfate (2.5 (2.5 } (2.5 MG/3ML) MG/3ML) MG/3ML) 0.083% 0.083% 0.083% Ondansetron Ondansetron No Ondansetro HCl 8 MG HCl 8 MG n HCl 8 MG SEROquel SEROquel No 1{table QD SEROquel 200 MG 200 MG t} 200 MG Metoprolol Metoprolol No Metoprolol Tartrate 50 Tartrate 50 Tartrate MG MG 50 MG Ventolin Ventolin No Ventolin HFA HFA HFA 108MCG/A 108MCG/A 108MCG/A Levothyroxi Levothyroxi No QD Levothyrox ne Sodium ne Sodium ine Sodium 75 MCG 75 MCG 75 MCG amLODIPine amLODIPine No amLODIPine Besylate 5 Besylate 5 Besylate 5 MG MG MG Trelegy Trelegy No Trelegy Ellipta Ellipta Ellipta 100-62.5-25 100-62.5-25 100-62.5-2 MCG/INH MCG/INH 5 MCG/INH rOPINIRole rOPINIRole No rOPINIRole HCl 0.5 MG HCl 0.5 MG HCl 0.5 MG Aspirin Aspirin No 1{table Aspirin Adult Low Adult Low t} Adult Low Strength 81 Strength 81 Strength MG MG 81 MG Gemfibrozil Gemfibrozil No Gemfibrozi 600 MG 600 MG l 600 MG Vitamin D3 Vitamin D3 No 1{capsu QD Vitamin D3 1000 UNIT 1000 UNIT le} 1000 UNIT traZODone traZODone No traZODone HCl 50 MG HCl 50 MG HCl 50 MG Pantoprazol Pantoprazol No Pantoprazo e Sodium 40 e Sodium 40 le Sodium MG MG 40 MG Cymbalta 60 Cymbalta 60 No 1{capsu QD Cymbalta MG MG le} 60 MG Albuterol Albuterol No 3{ml_as Albuterol Sulfate Sulfate _needed Sulfate (2.5 (2.5 } (2.5 MG/3ML) MG/3ML) MG/3ML) 0.083% 0.083% 0.083% Ondansetron Ondansetron No Ondansetro HCl 8 MG HCl 8 MG n HCl 8 MG SEROquel SEROquel No 1{table QD SEROquel 200 MG 200 MG t} 200 MG Metoprolol Metoprolol No Metoprolol Tartrate 50 Tartrate 50 Tartrate MG MG 50 MG Ventolin Ventolin No Ventolin HFA HFA HFA 108MCG/A 108MCG/A 108MCG/A Levothyroxi Levothyroxi No QD Levothyrox ne Sodium ne Sodium ine Sodium 75 MCG 75 MCG 75 MCG amLODIPine amLODIPine No amLODIPine Besylate 5 Besylate 5 Besylate 5 MG MG MG Trelegy Trelegy No Trelegy Ellipta Ellipta Ellipta 100-62.5-25 100-62.5-25 100-62.5-2 MCG/INH MCG/INH 5 MCG/INH rOPINIRole rOPINIRole No rOPINIRole HCl 0.5 MG HCl 0.5 MG HCl 0.5 MG Aspirin Aspirin No 1{table Aspirin Adult Low Adult Low t} Adult Low Strength 81 Strength 81 Strength MG MG 81 MG Gemfibrozil Gemfibrozil No Gemfibrozi 600 MG 600 MG l 600 MG Vitamin D3 Vitamin D3 No 1{capsu QD Vitamin D3 1000 UNIT 1000 UNIT le} 1000 UNIT traZODone traZODone No traZODone HCl 50 MG HCl 50 MG HCl 50 MG Pantoprazol Pantoprazol No Pantoprazo e Sodium 40 e Sodium 40 le Sodium MG MG 40 MG Cymbalta 60 Cymbalta 60 No 1{capsu QD Cymbalta MG MG le} 60 MG Albuterol Albuterol No 3{ml_as Albuterol Sulfate Sulfate _needed Sulfate (2.5 (2.5 } (2.5 MG/3ML) MG/3ML) MG/3ML) 0.083% 0.083% 0.083% Ondansetron Ondansetron No Ondansetro HCl 8 MG HCl 8 MG n HCl 8 MG SEROquel SEROquel No 1{table QD SEROquel 200 MG 200 MG t} 200 MG Metoprolol Metoprolol No Metoprolol Tartrate 50 Tartrate 50 Tartrate MG MG 50 MG Ventolin Ventolin No Ventolin HFA HFA HFA 108MCG/A 108MCG/A 108MCG/A Levothyroxi Levothyroxi No QD Levothyrox ne Sodium ne Sodium ine Sodium 75 MCG 75 MCG 75 MCG Immunizations Ordered Filled Immunization Date Status Comments Sourc e Immunization Name Name FLUZONE HIGH DOSE FLUZONE HIGH DOSE 2022-08-23 Completed [facility] OVER 65 OVER 65 15:32:00 [facility] FLUZONE HIGH DOSE FLUZONE HIGH DOSE 2022-08-23 Completed [facility] OVER 65 OVER 65 15:32:00 - [facility] FLUZONE HIGH DOSE FLUZONE HIGH DOSE 2020-06-01 Completed [facility] OVER 65 OVER 65 11:03:00 - [facility] FLUZONE HIGH DOSE FLUZONE HIGH DOSE 2020-06-01 Completed [facility] OVER 65 OVER 65 11:03:00 - [facility] FLUZONE HIGH DOSE FLUZONE HIGH DOSE 2020-06-01 Completed [facility] OVER 65 OVER 65 11:03:00 - [facility] FLUZONE HIGH DOSE FLUZONE HIGH DOSE 2020-06-01 Completed [facility] OVER 65 OVER 65 11:03:00 - [facility] FLUZONE HIGH DOSE FLUZONE HIGH DOSE 2020-06-01 Completed [facility] OVER 65 OVER 65 11:03:00 - [facility] FLUZONE HIGH DOSE FLUZONE HIGH DOSE 2020-06-01 Completed [facility] OVER 65 OVER 65 11:03:00 - [facility] FLUZONE HIGH DOSE FLUZONE HIGH DOSE 2020-06-01 Completed [facility] OVER 65 OVER 65 11:03:00 - [facility] FLUZONE HIGH DOSE FLUZONE HIGH DOSE 2020-06-01 Completed [facility] OVER 65 OVER 65 11:03:00 - [facility] FLUZONE HIGH DOSE FLUZONE HIGH DOSE 2020-06-01 Completed [facility] OVER 65 OVER 65 11:03:00 - [facility] FLUZONE HIGH DOSE FLUZONE HIGH DOSE 2020-06-01 Completed [facility] OVER 65 OVER 65 11:03:00 - [facility] FLUZONE HIGH DOSE FLUZONE HIGH DOSE 2020-06-01 Completed [facility] OVER 65 OVER 65 11:03:00 - [facility] FLUZONE HIGH DOSE FLUZONE HIGH DOSE 2020-06-01 Completed [facility] OVER 65 OVER 65 11:03:00 - [facility] FLUZONE HIGH DOSE FLUZONE HIGH DOSE 2020-06-01 Completed [facility] OVER 65 OVER 65 11:03:00 - [facility] FLUZONE HIGH DOSE FLUZONE HIGH DOSE 2020-06-01 Completed [facility] OVER 65 OVER 65 11:03:00 - [facility] FLUZONE HIGH DOSE FLUZONE HIGH DOSE 2020-06-01 Completed [facility] OVER 65 OVER 65 11:03:00 - [facility] FLUZONE HIGH DOSE FLUZONE HIGH DOSE 2020-06-01 Completed [facility] OVER 65 OVER 65 11:03:00 - [facility] FLUZONE HIGH DOSE FLUZONE HIGH DOSE 2020-06-01 Completed [facility] OVER 65 OVER 65 11:03:00 - [facility] FLUZONE HIGH DOSE FLUZONE HIGH DOSE 2020-06-01 Completed [facility] OVER 65 OVER 65 11:03:00 - [facility] FLUZONE HIGH DOSE FLUZONE HIGH DOSE 2020-06-01 Completed [facility] OVER 65 OVER 65 11:03:00 - [facility] FLUZONE HIGH DOSE FLUZONE HIGH DOSE Unknown Completed [facility] OVER 65 OVER 65 - [facility] FLUZONE HIGH DOSE FLUZONE HIGH DOSE Unknown Completed [facility] OVER 65 OVER 65 - [facility] FLUZONE HIGH DOSE FLUZONE HIGH DOSE Unknown Completed [facility] OVER 65 OVER 65 - [facility] FLUZONE HIGH DOSE FLUZONE HIGH DOSE Unknown Completed [facility] OVER 65 OVER 65 - [facility] FLUZONE HIGH DOSE FLUZONE HIGH DOSE Unknown Completed [facility] OVER 65 OVER 65 - [facility] FLUZONE HIGH DOSE FLUZONE HIGH DOSE Unknown Completed [facility] OVER 65 OVER 65 - [facility] Vital Signs Vital Name Observation Time Observation Value Comments Source height 2022-08-23 15:00:00 62 [in_i] [facility] weight 2022-08-23 15:00:00 85.2 [lb_av] [facility] temperature 2022-08-23 15:00:00 97.2 [degF] [facility] bmi 2022-08-23 15:00:00 15.58 kg/m2 [facility] oximetry 2022-08-23 15:00:00 91 % [facility] respiratory rate 2022-08-23 15:00:00 16 /min Comm on Spirit - [facility] blood pressure 2022-08-23 15:00:00 136 mm[Hg] Common [facility] - systolic [facility] blood pressure 2022-08-23 15:00:00 80 mm[Hg] Common [facility] - diastolic [facility] height 2022-08-23 15:40:00 62 [in_i] [facility] weight 2022-08-23 15:40:00 85.2 [lb_av] [facility] temperature 2022-08-23 15:40:00 97.2 [degF] [facility] bmi 2022-08-23 15:40:00 15.58 kg/m2 [facility] oximetry 2022-08-23 15:40:00 91 % [facility] respiratory rate 2022-08-23 15:40:00 16 /min Comm on [facility] blood pressure 2022-08-23 15:40:00 136 mm[Hg] Common [facility] - systolic [facility] blood pressure 2022-08-23 15:40:00 80 mm[Hg] Common [facility] - diastolic [facility] height 2022-02-23 10:20:00 62 [in_i] [facility] weight 2022-02-23 10:20:00 96 [lb_av] [facility] temperature 2022-02-23 10:20:00 99.0 [degF] [facility] bmi 2022-02-23 10:20:00 17.56 kg/m2 [facility] height 2021-10-27 16:20:00 62 [in_i] [facility] weight 2021-10-27 16:20:00 95.8 [lb_av] [facility] temperature 2021-10-27 16:20:00 97.3 [degF] [facility] bmi 2021-10-27 16:20:00 17.52 kg/m2 [facility] oximetry 2021-10-27 16:20:00 98 % [facility] respiratory rate 2021-10-27 16:20:00 18 /min Comm on [facility] blood pressure 2021-10-27 16:20:00 159 mm[Hg] Common [facility] - systolic [facility] blood pressure 2021-10-27 16:20:00 74 mm[Hg] Common [facility] diastolic [facility] height 2021-06-01 08:20:00 62 [in_i] Common [facility] weight 2021-06-01 08:20:00 89.4 [lb_av] [facility] temperature 2021-06-01 08:20:00 97.9 [degF] [facility] bmi 2021-06-01 08:20:00 16.35 kg/m2 [facility] oximetry 2021-06-01 08:20:00 99 % [facility] respiratory rate 2021-06-01 08:20:00 16 /min Comm on [facility] blood pressure 2021-06-01 08:20:00 98 mm[Hg] Common [facility] systolic [facility] blood pressure 2021-06-01 08:20:00 54 mm[Hg] Common [facility] diastolic [facility] Procedures This patient has no known procedures. Encounters Start End Encounter Admission Attending Care Care Encounter Source Date/Time Date/Time Type Type Clinicians Facility Department ID 2022-08-23 Outpatient [place], STLMLC STLMLC [id number] Common 09:21:01 Jodie [id number] [facility] 2022-08-01 Outpatient [place], STLMLC STLMLC [id number] Common 15:10:00 Kaylene [id number] [facility] 2022-07-14 Outpatient [place], STLMLC STLMLC [id number] Common 11:37:00 Kaylene 75119 [facility] 2022-03-03 Outpatient [place], STLMLC STLMLC [id number] Common 08:01:00 Kaylene [id number] [facility] 2021-11-03 Outpatient [place], STLMLC STLMLC [id number] Common 09:35:00 Kaylene [facility] 2021-10-27 Outpatient [place], STLMLC STLMLC [id number] Common 17:04:00 Kaylene [facility] 2021-10-25 Outpatient [place], STLMLC STLMLC [id number] Common 11:15:01 Kaylene [facility] 2021-07-20 Outpatient [place], STLMLC STLMLC [id number] Common 14:06:12 Kaylene [facility] 2021-07-20 Outpatient [place], STLMLC STLMLC [id number] Common 12:10:57 Kaylene [id number] [facility] 2021-07-20 Outpatient [place], STLMLC STLMLC [id number] Common 11:20:37 Kaylene [id number] [facility] 2021-07-20 Outpatient [place], STLMLC STLMLC [id number] Common 11:08:50 Kaylene [id number] [facility] 2021-07-20 Outpatient [place], STLMLC STLMLC [id number] Common 11:00:43 Kaylene [id number] [facility] 2021-07-20 Outpatient [place], STLMLC STLMLC [id number] Common 10:57:27 Kaylene [id number] [facility] 2022-09-07 2022-09-07 (TEL) STLMLC STLMLC [id number] Co mmon 00:00:00 00:00:00 [facility] 2022-08-23 2022-08-23 OFFICE STLMLC STLMLC [id number] Co mmon 00:00:00 00:00:00 VISIT [facility] ESTAB PT - [facility] LEVEL 4 [facility] 2022-08-23 2022-08-23 SUB ANNUAL STLMLC STLMLC [id number] Common 00:00:00 00:00:00 MCR [facility] VISIT [facility] 2022-07-12 2022-07-12 (TEL) STLMLC STLMLC [id number] Co mmon 00:00:00 00:00:00 [facility] 2022-03-24 2022-03-24 (TEL) STLMLC STLMLC [id number] Co mmon 00:00:00 00:00:00 [facility] 2022-02-23 2022-02-23 OL DIG E/M STLMLC STLMLC [id number] Common 00:00:00 00:00:00 SVC 11-20 Spir it MIN [facility] 2022-02-23 2022-02-23 (TEL) STLMLC STLMLC [id number] Co mmon 00:00:00 00:00:00 [facility] 2021-12-14 2021-12-14 (TEL) STLMLC STLMLC [id number] Co mmon 00:00:00 00:00:00 [facility] 2021-10-27 2021-10-27 OFFICE STLMLC STLMLC [id number] Co mmon 00:00:00 00:00:00 VISIT EST Spir it PT LEVEL 3 [facility] 2021-09-19 2021-09-19 (TEL) STLMLC STLMLC [id number] Co mmon 00:00:00 00:00:00 [facility] 2021-07-09 2021-07-09 (TEL) STLMLC STLMLC [id number] Co mmon 00:00:00 00:00:00 [facility] 2021-07-08 2021-07-08 (TEL) STLMLC STLMLC [id number] Co mmon 00:00:00 00:00:00 [facility] 2021-07-08 2021-07-08 (TEL) STLMLC STLMLC [id number] Co mmon 00:00:00 00:00:00 [facility] 2021-07-08 2021-07-08 (TEL) STLMLC STLMLC [id number] Co mmon 00:00:00 00:00:00 [facility] 2021-07-08 2021-07-08 (TEL) STLMLC STLMLC [id number] Co mmon 00:00:00 00:00:00 [facility] 2021-07-08 2021-07-08 (TEL) STLMLC STLMLC [id number] Co mmon 00:00:00 00:00:00 [facility] 2021-07-08 2021-07-08 (TEL) STLMLC STLMLC [id number] Co mmon 00:00:00 00:00:00 [facility] 2021-07-06 2021-07-06 (TEL) STLMLC STLMLC [id number] Co mmon 00:00:00 00:00:00 [facility] 2021-06-01 2021-06-01 OFFICE STLMLC STLMLC [id number] Co mmon 00:00:00 00:00:00 VISIT EST Spir it PT LEVEL [address] [place] [address] 2021-04-21 2021-04-21 (TEL) STLMLC STLMLC [id number] Co mmon 00:00:00 00:00:00 [facility] 2021-04-04 2021-04-04 (TEL) STLMLC STLMLC [id number] Co mmon 00:00:00 00:00:00 [facility] 2021-01-25 2021-01-25 Outpatient STLMLC STLMLC [id number] Common 00:00:00 00:00:00 [facility] 2020-12-21 2020-12-21 Outpatient STLMLC STLMLC [id number] Common 00:00:00 00:00:00 [facility] 2020-12-17 2020-12-17 Outpatient STLMLC STLMLC [id number] Common 00:00:00 00:00:00 [facility] 2020-09-15 2020-09-15 Outpatient STLMLC STLMLC [id number] Common 00:00:00 00:00:00 [facility] 2020-08-30 2020-08-30 Outpatient STLMLC STLMLC [id number] Common 00:00:00 00:00:00 [facility] 2020-08-27 2020-08-27 Outpatient STLMLC STLMLC [id number] Common 00:00:00 00:00:00 [facility] 2020-08-26 2020-08-26 Outpatient STLMLC STLMLC [id number] Common 00:00:00 00:00:00 [facility] 2020-06-01 2020-06-01 Outpatient STLMLC STLMLC [id number] Common 00:00:00 00:00:00 [facility] 2019-12-16 2019-12-16 [facility] [place] [id number] Common 09:18:00 09:18:[address] [facility] [address] [facility] 2019-11-27 2019-11-27 [facility] [id number] Common 13:00:00 13:00:[address] [facility] 2019-10-29 2019-10-29 [facility] [id number] Common 09:20:00 09:20:[address] [facility] 2019-08-26 2019-08-26 [facility] [id number] Common 10:00:00 10:00:[address] [facility] 2019-08-14 2019-08-14 [facility] [id number] Common 10:40:00 10:40:[address] [facility] 2019-07-09 2019-07-09 [facility] [id number] Common 14:20:00 14:20:[address] [facility] 2019-06-27 2019-06-27 [facility] [id number] Common 10:20:00 10:20:[address] [facility] Results This patient has no known results.
[2023-04-27 17:56] LABS: Absolute Lymphocytes (CBC) 1.5 K/uL (0.7-4.9); Hematocrit 29.9 % (36.0-45.0); Lymphocytes % 28.5 % (15.3-44.8); MCV 88.5 fL (80-100); MPV 10.1 fL (7.6-11.3); Platelets 132 thou/uL (152-406); RBC Red Blood Cell Count 3.38 M/uL (3.86-4.86)
[2023-04-27 18:01] LABS: Protime INR 0.95
[2023-04-27] MEDS ORDERED: CEFTRIAXONE 1000 MG/VIAL ONE (18:01)
[2023-04-27 18:12] LABS: Albumin 2.8 g/dL (3.4-5.0); Bilirubin Direct 0.1 mg/dL (0-0.2); Bilirubin Indirect, Calculated 0.2 mg/dL (0.2-0.8); Bilirubin Total 0.3 mg/dL (0.2-1.0); Magnesium 1.8 mg/dL (1.6-2.4); Potassium 4.5 mEq/L (3.5-5.1); Protein, Total 7.6 g/dL (6.4-8.2); Troponin High Sensitivity 7.4 pg/mL (<58.9)
--- NOTE | 2023-04-27 18:20 | RAD REPORT ---
EXAM DESCRIPTION: Yissel Single View04/27/2023 6:10 pm CLINICAL HISTORY: sob COMPARISON: September 2022 FINDINGS: Lungs are markedly hyperaerated. Small bilateral pleural effusions are present with mild bibasilar atelectasis Upper lobes are clear. The heart is borderline enlarged IMPRESSION: COPD Small bilateral pleural effusions
[2023-04-27] MEDS ORDERED: ONDANSETRON 4 MG (ODT) TAB ONE (18:30)
[2023-04-27] MEDS ORDERED: HYDROCODONE/APAP 5/325 MG TAB ONE (18:30)
[2023-04-27] MEDS ORDERED: DIPHENHYDRAMINE 50 MG/ML VIAL ONE (19:34)
--- NOTE | 2023-04-27 20:03 | RAD REPORT ---
EXAM DESCRIPTION: CT - Chest For Pe Angio - 04/27/2023 7:36 pm CLINICAL HISTORY: Chest pain COMPARISON: September 2022 TECHNIQUE: Dynamically enhanced axial 3 mm thick images of the chest were obtained during administra tion of 100 mL Isovue 370 IV contrast. Coronal and oblique reconstruction images were generated and r eviewed. Exam utilizes a protocol for optimal evaluation of pulmonary arterial tree. Maximum intensity projections 3D imaging was utilized All CT scans are performed using dose optimization technique as appropriate and may include automated exposure control or mA/KV adjustment according to patient size. FINDINGS: A pulmonary embolus is not seen. Ulcerating plaque distal descending thoracic aorta. Upper abdominal aorta 3.3 centimeters A pleural effusion is not seen. A pericardial effusion is not seen. Proximal left subclavian arterial stent. The stent is occluded Mild right middle lobe consolidation. COPD IMPRESSION: Negative for a pulmonary embolism. Mild right middle lobe pneumonia 3.3 centimeter couple abdominal aortic aneurysm. Followup CT in 3 year is recommended to assess stabi lity
--- NOTE | 2023-04-27 20:22 | EDPHYS ---
Physician Documentation [facility] Name: Louise Raines Age: 72 yrs Sex: Female : 1950 Arrival Date: 04/27/2023 Time: 16:02 Bed 4 Private MD: ED Physician Gwen Haywood HPI: 04/27 16:53 This 72 yrs old Female presents to ER via Wheelchair with complaints of Breathing cp3 Difficulty, Back Pain. 16:53 Patient is a 72-year-old female with a history of COPD on 5 L continuous home oxygen cp3 who presents to the ED secondary to shortness of breath for the last 2 weeks that is unchanged despite 2 rounds of oral antibiotics. Patient seen by her nurse practitioner a few days ago and had x-ray ordered patient patient advised to come to the ED for a round of IV antibiotics. Historical: - Allergies: 16:12 Adhesives; cm10 16:12 ambien; cm10 16:12 Baclofen; cm10 16:12 Iodinated Contrast Media - IV Dye; cm10 16:12 Iodine; cm10 - PMHx: 16:12 Continuous home O2 \T\ 5L; COPD; ulcerative colitis; Hypertension; Hypothyroidism; cm10 - PSHx: 16:12 Cholecystectomy; colon and rectal sx; stent placed in left arm; Total abdominal cm10 hysterectomy; - Immunization history:: Adult Immunizations unknown. - Social history:: Smoking status: Patient reports the use of cigarette tobacco products, denies chronic smoking, but will smoke occasionally. ROS: 16:53 Constitutional: Negative for fever, chills, and weight loss, Eyes: Negative for injury, cp3 pain, redness, and discharge, ENT: Negative for injury, pain, and discharge, Neck: Negative for injury, pain, and swelling, Cardiovascular: Negative for chest pain, palpitations, and edema, Abdomen/GI: Negative for abdominal pain, nausea, vomiting, diarrhea, and constipation, Back: Negative for injury and pain, : Negative for injury, bleeding, discharge, and swelling, MS/Extremity: Negative for injury and deformity, Skin: Negative for injury, rash, and discoloration, Psych: Negative for depression, anxiety, suicide ideation, homicidal ideation, and hallucinations, Allergy/Immunology: Negative for hives, rash, and allergies, Endocrine: Negative for neck swelling, polydipsia, polyuria, polyphagia, and marked weight changes, Hematologic/Lymphatic: Negative for swollen nodes, abnormal bleeding, and unusual bruising, 16:53 Respiratory: Positive for cough, orthopnea, Exam: 16:53 Constitutional: This is a well developed, well nourished patient who is awake, alert, cp3 and in no acute distress. Head/Face: Normocephalic, atraumatic. Eyes: Pupils equal round and reactive to light, extra-ocular motions intact. Lids and lashes normal. Conjunctiva and sclera are non-icteric and not injected. Cornea within normal limits. Periorbital areas with no swelling, redness, or edema. ENT: Nares patent. No nasal discharge, no septal abnormalities noted. Tympanic membranes are normal and external auditory canals are clear. Oropharynx with no redness, swelling, or masses, exudates, or evidence of obstruction, uvula midline. Mucous membranes moist. Neck: Trachea midline, no thyromegaly or masses palpated, and no cervical lymphadenopathy. Supple, full range of motion without nuchal rigidity, or vertebral point tenderness. No Meningismus. Chest/axilla: Normal chest wall appearance and motion. Nontender with no deformity. No lesions are appreciated. Cardiovascular: Regular rate and rhythm with a normal S1 and S2. No gallops, murmurs, or rubs. Normal PMI, no JVD. No pulse deficits. Abdomen/GI: Soft, non-tender, with normal bowel sounds. No distension or tympany. No guarding or rebound. No evidence of tenderness throughout. Skin: Warm, dry with normal turgor. Normal color with no rashes, no lesions, and no evidence of cellulitis. MS/ Extremity: Pulses equal, no cyanosis. Neurovascular intact. Full, normal range of motion. Neuro: Awake and alert, GCS 15, oriented to person, place, time, and situation. Cranial nerves II-XII grossly intact. Motor strength 5/5 in all extremities. Sensory grossly intact. Cerebellar exam normal. Normal gait. Psych: Awake, alert, with orientation to person, place and time. Behavior, mood, and affect are within normal limits. 16:53 Respiratory: Breath sounds: rhonchi, that are moderate, are heard diffusely, Vital Signs: 16:10 BP 144 / 59; Pulse 106; Resp 18; Temp 97.3; Pulse Ox 90% on 4 lpm NC; Weight 36.29 kg cm10 (R); Pain 8/10; 16:10 BP 138 / 70; Pulse 96; Resp 18; Pulse Ox 97% on 4 lpm NC; rs5 17:02 BP 132 / 66; Pulse 85; Resp 19; Pulse Ox 98% on 3 lpm NC; rs5 18:10 BP 126 / 63; Pulse 87; Resp 18; Pulse Ox 98% on 3 lpm NC; rs5 20:30 BP 147 / 68; Pulse 105; Resp 18; Pulse Ox 97% on 2 lpm NC; cm10 16:10 Pain Scale: Adult cm10 MDM: 16:16 Patient medically screened. cp3 16:53 Differential diagnosis: asthma, Bronchitis CHF exacerbation, Chronic Obstructive cp3 Pulmonary Disease pneumonia, reactive airway disease. 19:11 Data reviewed: vital signs, nurses notes. 3 04/27 16:52 Order name: BMP; Complete Time: 18:23 cp3 04/27 16:52 Order name: Blood Culture Adult (2) 3 04/27 16:52 Order name: CBC with Diff; Complete Time: 18:23 cp3 04/27 16:52 Order name: CPK; Complete Time: 18:23 cp3 04/27 16:52 Order name: D-Dimer; Complete Time: 18:23 cp3 04/27 16:52 Order name: Hepatic Function; Complete Time: 18:23 cp3 04/27 16:52 Order name: Lipase; Complete Time: 18:23 cp3 04/27 16:52 Order name: Magnesium; Complete Time: 18:23 cp3 04/27 16:52 Order name: NT PRO-BNP; Complete Time: 18:23 cp3 04/27 16:52 Order name: PT-INR; Complete Time: 18:23 cp3 04/27 16:52 Order name: Ptt, Activated; Complete Time: 18:23 cp3 04/27 16:52 Order name: Troponin HS; Complete Time: 18:23 cp3 04/27 17:22 Order name: Chest Single View XRAY; Complete Time: 18:23 cp3 04/27 18:24 Order name: CT Chest For PE Angio; Complete Time: 20:15 cp3 04/27 16:52 Order name: EKG; Complete Time: 16:54 cp3 04/27 16:52 Order name: Cardiac monitoring; Complete Time: 17:55 cp3 04/27 16:52 Order name: EKG - Nurse/Tech; Complete Time: 18:06 cp3 04/27 16:52 Order name: IV Saline Lock; Complete Time: 17:55 cp3 04/27 16:52 Order name: Labs collected and sent; Complete Time: 17:55 cp3 04/27 16:52 Order name: O2 Per Protocol; Complete Time: 17:55 cp3 04/27 16:52 Order name: O2 Sat Monitoring; Complete Time: 17:55 cp3 Administered Medications: 17:45 Drug: Rocephin IV 1 grams IV at calculated rate once; Given slow IV push per pharmacy rs5 instructions Route: IV; Rate: calculated rate; Site: right antecubital; 18:01 Follow up: Response: No adverse reaction rs5 18:17 Drug: HYDROcodone-acetaminophen PO 5 mg-325 mg 1 tabs PO once Route: PO; rs5 20:26 Follow up: Response: No adverse reaction cm10 18:17 Drug: Ondansetron Oral Disintegrating Tablet Oral Disintegrating Tablet 4 mg PO once rs5 Route: PO; 18:40 Follow up: Response: No adverse reaction rs5 19:23 Drug: diphenhydrAMINE IVP 25 mg IVP once Route: IVP; Site: right antecubital; rv 20:26 Follow up: Response: No adverse reaction cm10 20:26 Drug: Decadron - Dexamethasone IVP 10 mg IVP once Route: IVP; Site: right antecubital; cm10 20:53 Follow up: Response: No adverse reaction cm10 Disposition Summary: 04/27/23 20:21 Discharge Ordered Notes: Location: Home cp3 Condition: Stable cp3 Diagnosis - Pneumonia, unspecified organism cp3 - Pleurisy cp3 - COPD/ Chronic obstructive pulmonary disease with acute lower respiratory infection cp3 Followup: cp3 - With: Carol Hancock MD - When: - Reason: Recheck today's complaints Discharge Instructions: - Discharge Summary Sheet cp3 - Pleurisy cp3 - Hospital-Acquired Pneumonia cp3 Forms: - Medication Reconciliation Form cp3 - Thank You Letter cp3 - Antibiotic Education cp3 - Prescription Opioid Use cp3 - Patient Portal Instructions cp3 - Leadership Thank You Letter cp3 Prescriptions: - Zithromax 500 mg Oral tablet - take 1 tablet ORAL route daily for 10 days; 10 tablet; Refills: 0, Product cp3 Selection Permitted - Tessalon Perles 100 mg Oral Capsule - take 1 capsule ORAL route every 8 hours As needed; 15 capsule; Refills: 0, cp3 Product Selection Permitted - Doxycycline Hyclate 100 mg Oral Tablet - take 1 tablet ORAL route every 12 hours; 20 tablet; Refills: 0, Product cp3 Selection Permitted - Medrol (Willie) 4 mg Oral Tablet, Dose Pack - take 1 tablet ORAL route as directed - follow package instructions. to be cp3 started after po steroids finished; 1 packet; Refills: 0, Product Selection Permitted - Prednisone 20 mg Oral Tablet - take 2 tablets ORAL route once daily for 5 days; 10 tablet; Refills: 0, Product cp3 Selection Permitted Signatures: Dispatcher [employer] Gwen Hernandez MD MD cp3 Cedric Martinez RN ADWOA rv Jesus Connolly RN RN rs5 Elenita Alvarado RN RN cm10
--- NOTE | 2023-04-27 20:22 | ER ---
Nurse's Notes [facility] Name: Louise Raines Age: 72 yrs Sex: Female : 1950 Arrival Date: 04/27/2023 Time: 16:02 Bed 4 Private MD: Diagnosis: Pneumonia, unspecified organism;Pleurisy;COPD/ Chronic obstructive pulmonary disease with acute lower respiratory infection Presentation: 04/27 16:10 Chief complaint: Patient states: was diagnosed with pneumonia today. Pt has done 2 cm10 rounds of antibiotics with no improvement. Pt had chest x-ray done yesterday and diagnosed with pneumonia. Pt states that she has increased her home O2 from 2L-4L. Coronavirus screen: Vaccine status: Patient reports being unvaccinated. Client denies travel out of the [place] in the last 14 days. Ebola Screen: Patient denies travel to an Ebola-affected area in the 21 days before illness onset. No symptoms or risks identified at this time. Initial Sepsis Screen: Does the patient meet any 2 criteria? No. Patient's initial sepsis screen is negative. Does the patient have a suspected source of infection? No. Patient's initial sepsis screen is negative. Risk Assessment: Do you want to hurt yourself or someone else? Patient reports no desire to harm self or others. Onset of symptoms was April 27, 2023. 16:10 Method Of Arrival: Wheelchair cm10 16:10 Acuity: JAIME 3 cm10 Triage Assessment: 20:55 General: Appears in no apparent distress. comfortable, Behavior is calm, cooperative. cm10 Respiratory: Reports shortness of breath cough that is the patient has mild shortness of breath. Historical: - Allergies: 16:12 Adhesives; cm10 16:12 ambien; cm10 16:12 Baclofen; cm10 16:12 Iodinated Contrast Media - IV Dye; cm10 16:12 Iodine; cm10 - PMHx: 16:12 Continuous home O2 \T\ 5L; COPD; ulcerative colitis; Hypertension; Hypothyroidism; cm10 - PSHx: 16:12 Cholecystectomy; colon and rectal sx; stent placed in left arm; Total abdominal cm10 hysterectomy; - Immunization history:: Adult Immunizations unknown. - Social history:: Smoking status: Patient reports the use of cigarette tobacco products, denies chronic smoking, but will smoke occasionally. Screenin:10 [facility] ED Fall Risk Assessment (Adult) History of falling in the last 3 months, rs5 including since admission No falls in past 3 months (0 pts) Confusion or Disorientation No (0 pts) Intoxicated or Sedated No (0 pts) Impaired Gait No (0 pts) Mobility Assist Device Used No (0 pt) Altered Elimination No (0 pt) Score/Fall Risk Level 0 - 2 = Low Risk Oriented to surroundings, Maintained a safe environment. Abuse screen: Denies threats or abuse. Nutritional screening: No deficits noted. Tuberculosis screening: No symptoms or risk factors identified. Assessment: 16:10 General: Appears in no apparent distress. comfortable, Behavior is calm, cooperative. rs5 Pain: Complains of pain in Back pain Pain radiates to chest Pain currently is 3 out of 10 on a pain scale. Quality of pain is described as aching, Pain began 2-3 days ago. Is continuous, Aggravated by coughing. Neuro: Level of Consciousness is awake, alert, obeys commands, Oriented to person, place, time, situation. Cardiovascular: Heart tones S1 S2 present Patient's skin is warm and dry. Rhythm is regular. Respiratory: Airway is patent Respiratory effort is even, unlabored, Respiratory pattern is regular, symmetrical, Breath sounds with crackles bilaterally. Parent/caregiver reports the patient having cough that is productive, pain with cough since 3 days ago. GI: Abdomen is flat, non-distended, Bowel sounds present X 4 quads. Abd is soft and non tender X 4 quads. : No signs and/or symptoms were reported regarding the genitourinary system. EENT: No signs and/or symptoms were reported regarding the EENT system. Derm: Skin is intact, Skin is pink, warm \T\ dry. Musculoskeletal: Range of motion: intact in all extremities. 17:05 Reassessment: Patient and/or family updated on plan of care and expected duration. Pain rs5 level reassessed. Patient is alert, oriented x 3, equal unlabored respirations, skin warm/dry/pink. 18:02 Reassessment: Provider notified pt is experiencing pain. Pain: Complains of pain in rs5 back pain Pain radiates to chest Pain currently is 8 out of 10 on a pain scale. Quality of pain is described as aching. Cardiovascular: Heart tones S1 S2 present Rhythm is regular. 18:17 Reassessment: To bedside for med adm. rs5 20:27 Reassessment: Patient appears in no apparent distress at this time. Patient and/or cm10 family updated on plan of care and expected duration. Pain level reassessed. Patient is alert, oriented x 3, equal unlabored respirations, skin warm/dry/pink. Vital Signs: 16:10 BP 144 / 59; Pulse 106; Resp 18; Temp 97.3; Pulse Ox 90% on 4 lpm NC; Weight 36.29 kg cm10 (R); Pain 8/10; 16:10 BP 138 / 70; Pulse 96; Resp 18; Pulse Ox 97% on 4 lpm NC; rs5 17:02 BP 132 / 66; Pulse 85; Resp 19; Pulse Ox 98% on 3 lpm NC; rs5 18:10 BP 126 / 63; Pulse 87; Resp 18; Pulse Ox 98% on 3 lpm NC; rs5 20:30 BP 147 / 68; Pulse 105; Resp 18; Pulse Ox 97% on 2 lpm NC; cm10 16:10 Pain Scale: Adult cm10 ED Course: 16:03 Patient arrived in ED. rg4 16:10 Patient has correct armband on for positive identification. Bed in low position. Call rs5 light in reach. Side rails up X2. 16:12 Triage completed. cm10 16:13 Arm band placed on Patient placed in an exam room, on a stretcher. cm10 16:15 Gwen Haywood MD is Attending Physician. cp3 16:15 Inserted saline lock: 22 gauge in right antecubital area, using aseptic technique. rs5 Blood collected. 17:26 Jesus Connolly, ADWOA is Primary Nurse. rs5 18:12 Chest Single View XRAY In Process Unspecified. EDMS 19:12 Primary Nurse role handed off by Jesus Connolly, ADWOA as6 19:20 Rowan Newman, ADWOA is Primary Nurse. ph 19:[address] via stretcher. nj 19:37 CT completed. Patient tolerated procedure well. Patient moved back from CT. nj 19:38 CT Chest For PE Angio In Process Unspecified. EDMS 20:20 Carol Hancock MD is Referral Physician. cp3 20:53 Provided Education on: ER process and procedures.. cm10 20:53 No provider procedures requiring assistance completed. IV discontinued, intact, cm10 bleeding controlled, No redness/swelling at site. Pressure dressing applied. Administered Medications: 17:45 Drug: Rocephin IV 1 grams IV at calculated rate once; Given slow IV push per pharmacy rs5 instructions Route: IV; Rate: calculated rate; Site: right antecubital; 18:01 Follow up: Response: No adverse reaction rs5 18:17 Drug: HYDROcodone-acetaminophen PO 5 mg-325 mg 1 tabs PO once Route: PO; rs5 20:26 Follow up: Response: No adverse reaction cm10 18:17 Drug: Ondansetron Oral Disintegrating Tablet Oral Disintegrating Tablet 4 mg PO once rs5 Route: PO; 18:40 Follow up: Response: No adverse reaction rs5 19:23 Drug: diphenhydrAMINE IVP 25 mg IVP once Route: IVP; Site: right antecubital; rv 20:26 Follow up: Response: No adverse reaction cm10 20:26 Drug: Decadron - Dexamethasone IVP 10 mg IVP once Route: IVP; Site: right antecubital; cm10 20:53 Follow up: Response: No adverse reaction cm10 Medication: 20:54 VIS not applicable for this client. cm10 Outcome: 20:21 Discharge ordered by MD. cp3 20:54 Discharged to home via wheelchair, with family, cm10 20:54 Condition: good 20:54 Discharge instructions given to patient, family, Instructed on discharge instructions, follow up and referral plans. medication usage, Demonstrated understanding of instructions, follow-up care, medications, Prescriptions given X 5 20:55 Patient left the ED. cm10 Signatures: Dispatcher [employer] EDAL Gwen Haywood MD MD cp3 Rowan Newman RN RN Pooja Newberry rg4 Quan Petty Ronaldo RN RN rv Panfilo Cesar RN RN as6 Jesus Connolly RN RN rs5 Elenita Alvarado RN RN cm10 Corrections: (The following items were deleted from the chart) 18:35 18:32 Respiratory: Airway rs5 rs5 19:38 19:[address] via stretcher. mt nj 19:38 19:34 Radiology exam delayed due to lab results not completed at this time. nj (BUN/Creatinine) nj
[2023-04-27] MEDS ORDERED: dexAMETHasone 10 MG/ML VIAL ONE (20:36)
[2023-04-27 21:06] VITALS: TEMP 97.3
[2023-04-27 21:23] VITALS: BP 147/68; O2SAT 97
== END 2023-04-27 20:55 | disposition home or self-care (01) ==
LOC: ER 16:02
DX: J18.9 Pneumonia, unspecified organism (principal); J44.0 Chronic obstructive pulmonary disease with (acute) lower respiratory infection; R09.1 Pleurisy; Z99.81 Dependence on supplemental oxygen; I10 Essential (primary) hypertension; F17.210 Nicotine dependence, cigarettes, uncomplicated; Z88.1 Allergy status to other antibiotic agents; Z88.8 Allergy status to other drugs, medicaments and biological substances; Z91.041 Radiographic dye allergy status; Z91.048 Other nonmedicinal substance allergy status
CPT/HCPCS: 93005 ×2; 87040 ×2; 85025; 80048; 36415; 83735; 82550; 85610; 85379; 80076; 85730; 84484; 83690; 83880; 71275; 71045; 96375; 96374; 99285; Q9967; Q0162; J1200; J1100; J0696

== ENCOUNTER 2023-11-18 10:58 | Inpatient (IN) | payer OTHER ==
--- OUTSIDE RECORDS SUMMARY | 2023-11-18 11:07 | XMS REPORT | Continuity of Care Document ---
Author Name Unknown Address [address] [facility] [address] [place] [address] [email or web address] Address [address] [facility] [address] [place] [address] Care Team Providers Care Oscillograph Technician Name Role Phone Jodie Patterson Attending Clinician Unavailable Kaylene Polo Attending Clinician Unavailable Payers Payer Name Policy Type Policy Number Effective Date Expirati on Date Source MEDICARE NOVITAS MB [id number] 2013 00:00:00 [facility] Problems Condition Name Condition Details Condition Category Status Onset Date Resolution Date Last Treatment Date Treating Clinician Comments Source [id number] Sciatica, left side Problem [facility] [id number] Coronary artery disease involving [place] coronary artery of [place] heart without angina pectoris Problem [facility] [id number] Frequency of urination Problem [facility] Gastroesop hageal reflux disease without esophagiti s Gastroesop hageal reflux disease without esophagiti s Problem [facility] [id number] Bronchitis Problem [facility] [id number] Moderate episode of recurrent major depressive disorder Problem [facility] Cigarette smoker Cigarette smoker Problem [facility] Current smoker Current smoker Problem [facility] [id number] Primary insomnia Problem [facility] [id number] Hypertensi ve heart disease without CHF Problem [facility] [id number] Chronic respirator y failure with hypoxia [facility] [id number] COPD, severe Problem [facility] Age-relate d osteoporos is Age-relate d osteoporos is without current pathologic al fracture Problem [facility] [id number] Thrombocyt openia Problem [facility] [id number] Stage 3b chronic kidney disease Problem [facility] Tobacco user Nicotine addiction Problem [facility] Cerebral atheroscle rosis Cerebral atheroscle rosis Problem [facility] Right side sciatica Sciatica, right side Problem [facility] 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 Problem [facility] [id number] Cigarette nicotine dependence with nicotine-i nduced disorder Problem [facility] Calcinosis cutis Calcinosis cutis Problem [facility] [id number] BREAUX (dyspnea on exertion) Problem [facility] Chronic kidney disease stage 3 +5th digit eff 03/25/20*Ch ronic kidney disease, stage 3 (moderate) Problem [facility] [id number] Oxygen dependent Problem [facility] Ulcerative colitis Ulcerative colitis Problem [facility] History of polyp of colon Personal history of colonic polyps Problem [facility] Acute low back pain Acute low back pain Problem [facility] [id number] Hospital discharge follow-up Problem [facility] Peripheral vascular disease Cold foot with peripheral vascular disease Problem [facility] Hypothyroi dism Hypothyroi dism Problem [facility] Screening for breast cancer Screening for breast cancer Problem [facility] COPD exacerbati on COPD exacerbati on Problem [facility] Depressive disorder Depressive disorder Problem [facility] [id number] Nausea Problem [facility] Benign hypertensi on Benign hypertensi on Problem [facility] [id number] Body mass index (BMI) less than 16.5 Problem [facility] [id number] Pneumonia due to infectious organism, unspecifie d laterality , unspecifie d part of lung Problem [facility] Cerebrovas cular accident Cerebrovas cular accident Problem [facility] [id number] Wheezing Problem [facility] [id number] Restless leg Problem [facility] [id number] Cough Problem [facility] [id number] COPD with exacerbati on Problem [facility] Iron deficiency anemia Other iron deficiency anemia Problem [facility] [id number] Chronic pain syndrome Problem [facility] [id number] Chronic obstructiv e pulmonary disease with acute lower respirator y infection Problem [facility] Hypertrigl yceridemia Hypertrigl yceridemia Problem [facility] [id number] Epigastric pain Problem [facility] Coronary artery disease CAD (coronary artery disease) Problem [facility] Allergies, Adverse Reactions, Alerts Allergy Name Allergy Type Status Severity Reaction(s) Onset Date Inactive Date Treating Clinician Comments Source baclofen baclofen Active sever sleepiness [facility] 463 Drug allergy Active rash [facility] zolpidem zolpidem Active makes crazy C [facility] codeine codeine Active itching [facility] 0 Drug allergy Active rash, blisters [facility] Social History Social Habit Start Date Stop Date Quantity Comments Source History of Tobacco Use Current Smoker [facility] Sex Assigned At [facility] Smoking Status Start Date Stop Date Source Current Smoker 2023-11-07 00:00:00 [facility] Never Smoker [facility] Medications Ordered Medication Name Filled Medication Name Start Date Stop Date Current Medication? Ordering Clinician Indication Dosage Frequency Signature (SIG) Comments Components Source levoFLOXaci n 750 MG levoFLOXaci n 750 MG 11-06 00:00: 00 No 1{table t} QD levoFLOXac in 750 MG Albuterol Sulfate HFA 108 (90 Base) MCG/ACT Albuterol Sulfate HFA 108 (90 Base) MCG/ACT 4-0 5-10 00:00: 00 No 1{puff_ as_need ed} 6xD Albuterol Sulfate HFA 108 (90 Base) MCG/ACT predniSONE 20 MG predniSONE 20 MG 4-0 4-09 00:00: 00 No 2{table t} QD predniSONE 20 MG Benzonatate 100 MG Benzonatate 100 MG 4-0 4-09 00:00: 00 No 1{capsu le_as_n eeded} TID Benzonatat e 100 MG levoFLOXaci n 500 MG levoFLOXaci n 500 MG 4-0 - 00:00: 00 No 1{table t} QD levoFLOXac in 500 MG predniSONE 20 MG predniSONE 20 MG 4-0 3-14 00:00: 00 No 2{table t} QD predniSONE 20 MG Benzonatate 100 MG Benzonatate 100 MG 4-0 3-14 00:00: 00 No 1{capsu le_as_n eeded} TID Benzonatat e 100 MG Amoxicillin -Pot Clavulanate 875-125 MG Amoxicillin -Pot Clavulanate 875-125 MG 4-0 3-14 00:00: 00 No 1{table t} BID Amoxicilli n-Pot Clavulanat e 875-125 MG predniSONE 20 MG predniSONE 20 MG 4-0 3-14 00:00: 00 No 2{table t} QD predniSONE 20 MG Benzonatate 100 MG Benzonatate 100 MG 4-0 3-14 00:00: 00 No 1{capsu le_as_n eeded} TID Benzonatat e 100 MG Amoxicillin -Pot Clavulanate 875-125 MG Amoxicillin -Pot Clavulanate 875-125 MG 4-0 3-14 00:00: 00 No 1{table t} BID Amoxicilli n-Pot Clavulanat e 875-125 MG predniSONE 20 MG predniSONE 20 MG 4-0 3-14 00:00: 00 No 2{table t} QD predniSONE 20 MG Benzonatate 100 MG Benzonatate 100 MG 4-0 3-14 00:00: 00 No 1{capsu le_as_n eeded} TID Benzonatat e 100 MG Amoxicillin -Pot Clavulanate 875-125 MG Amoxicillin -Pot Clavulanate 875-125 MG 4-0 3-14 00:00: 00 No 1{table t} BID Amoxicilli n-Pot Clavulanat e 875-125 MG SOLU-Medrol SOLU-Medrol 2023-0 3-01 00:00: 00 No 125mg [facility] SOLU-Medrol SOLU-Medrol 3-0 3-01 00:00: 00 No 125mg [facility] SOLU-Medrol SOLU-Medrol 3-0 3- 00:00: 00 No 125mg [facility] SOLU-Medrol SOLU-Medrol 3-0 3- 00:00: 00 No 125mg [facility] SOLU-Medrol SOLU-Medrol 3-0 3- 00:00: 00 No 125mg [facility] SOLU-Medrol SOLU-Medrol 3-0 3- 00:00: 00 No 125mg [facility] SOLU-Medrol SOLU-Medrol 3-0 3- 00:00: 00 No 125mg [facility] SOLU-Medrol SOLU-Medrol 3-0 3- 00:00: 00 No 125mg [facility] SOLU-Medrol SOLU-Medrol 3-0 3- 00:00: 00 No 125mg [facility] SOLU-Medrol SOLU-Medrol 3-0 3- 00:00: 00 No 125mg [facility] SOLU-Medrol SOLU-Medrol 3-0 3- 00:00: 00 No 125mg [facility] SOLU-Medrol SOLU-Medrol 3-0 3- 00:00: 00 No 125mg [facility] SOLU-Medrol SOLU-Medrol 3-0 3- 00:00: 00 No 125mg [facility] SOLU-Medrol SOLU-Medrol 3 00:00: 00 No 125mg [facility] predniSONE 10 MG predniSONE 10 MG 02-23 00:00: 00 03-25 00:00 :00 No 1{table t} QD predniSONE 10 MG predniSONE 10 MG predniSONE 10 MG 02-23 00:00: 03-25 00:00 :00 No 1{table t} QD predniSONE 10 MG predniSONE 10 MG predniSONE 10 MG 02-23 00:00: 00 03-25 00:00 :00 No 1{table t} QD predniSONE 10 MG Doxycycline Hyclate 100 MG Doxycycline Hyclate 100 MG 02-23 00:00: 00 03-05 00:00 :00 No 1{capsu le} QD Doxycyclin e Hyclate 100 MG Doxycycline Hyclate 100 MG Doxycycline Hyclate 100 MG 02-23 00:00: 00 03-05 00:00 :00 No 1{capsu le} QD Doxycyclin e Hyclate 100 MG predniSONE 10 MG predniSONE 10 MG 2020-06 00:00: 00 07-31 00:00 :00 No 1{table t} QD predniSONE 10 MG predniSONE 10 MG predniSONE 10 MG 2020-06 00:00: 00 07-31 00:00 :00 No 1{table t} QD predniSONE 10 MG Trelegy Ellipta Trelegy Ellipta 2018-06 00:00: 00 07-19 00:00 :00 No Kaylene [place] 1 puff [facility] Ondansetron HCl Ondansetron HCl 03-21 00:00: 00 Yes Kaylene [place] 1 tablet as needed [facility] Aspirin Adult Low Strength Aspirin Adult Low Strength Yes Kaylene [place] 1 tablet [facility] Seroquel Seroquel Yes Kaylene [place] 1 tablet [facility] Ventolin HFA Ventolin HFA Yes Kaylene Polo INHALE ONE TO TWO PUFFS BY MOUTH EVERY 6 HOURS NEEDED FOR WHEEZING [facility] Metoprolol Tartrate Metoprolol Tartrate Yes Kaylene Polo TAKE 1 TABLET BY MOUTH TWICE DAILY WITH FOOD [facility] Levothyroxi ne Sodium Levothyroxi ne Sodium Yes Kaylene Polo 1 tablet on an empty stomach in the morning [facility] Cymbalta Cymbalta Yes Kaylene [place] 1 capsule [facility] Vitamin D3 Vitamin D3 Yes Kaylene [place] 1 capsule [facility] Ropinirole HCl Ropinirole HCl Yes Kaylene Polo TAKE ONE TABLET BY MOUTH THREE TIMES DAILY [facility] Amlodipine Besylate Amlodipine Besylate Yes Kayelne Polo take one tablet by mouth once daily [facility] Lopressor Lopressor Yes Kaylene [place] 1 tablet with food [facility] Albuterol Sulfate Albuterol Sulfate Yes Kaylene Polo 3 ml as needed [facility] Trazodone HCl Trazodone HCl Yes Kaylene [place] 3 tabs [facility] Gemfibrozil Gemfibrozil Yes Kaylene Polo TAKE 1 TABLET BY MOUTH TWICE DAILY [facility] Pantoprazol e Sodium Pantoprazol e Sodium Yes Kaylene [place] 1 tablet [facility] Metoprolol Tartrate 50 MG Metoprolol Tartrate 50 MG No 1{table t_with_ food} BID Metoprolol Tartrate 50 MG Trelegy Ellipta 100-62.5-25 MCG/INH Trelegy Ellipta 100-62.5-25 MCG/INH No Trelegy Ellipta 100-62.5-2 5 MCG/INH SEROquel 200 MG SEROquel 200 MG No 1{table t} QD SEROquel 200 MG Levothyroxi ne Sodium 50 MCG Levothyroxi ne Sodium 50 MCG No QD Levothyrox ine Sodium 50 MCG Albuterol Sulfate (2.5 MG/3ML) 0.083% Albuterol Sulfate (2.5 MG/3ML) 0.083% No 3{ml_as _needed } Albuterol Sulfate (2.5 MG/3ML) 0.083% rOPINIRole HCl 0.5 MG rOPINIRole HCl 0.5 MG No 1{table t} TID rOPINIRole HCl 0.5 MG Trelegy Ellipta 100-62.5-25 MCG/INH Trelegy Ellipta 100-62.5-25 MCG/INH No Trelegy Ellipta 100-62.5-2 5 MCG/INH Gemfibrozil 600 MG Gemfibrozil 600 MG No BID Gemfibrozi l 600 MG traZODone HCl 50 MG traZODone HCl 50 MG No traZODone HCl 50 MG Pantoprazol e Sodium 40 MG Pantoprazol e Sodium 40 MG No 1{table t} QD Pantoprazo le Sodium 40 MG Ondansetron HCl 8 MG Ondansetron HCl 8 MG No 1{table t_as_ne eded} QD Ondansetro n HCl 8 MG Cymbalta 60 MG Cymbalta 60 MG No 1{capsu le} QD Cymbalta 60 MG Aspirin Adult Low Strength 81 MG Aspirin Adult Low Strength 81 MG No 1{table t} Aspirin Adult Low Strength 81 MG amLODIPine Besylate 5 MG amLODIPine Besylate 5 MG No 1{table t} QD amLODIPine Besylate 5 MG traZODone HCl 50 MG traZODone HCl 50 MG No Ventolin HFA 108MCG/A Ventolin HFA 108MCG/A No Sucralfate 1 GM Sucralfate 1 GM No 1{table t_on_an _empty_ stomach } BID Metoprolol Tartrate 50 MG Metoprolol Tartrate 50 MG No amLODIPine Besylate 5 MG amLODIPine Besylate 5 MG No rOPINIRole HCl 0.5 MG rOPINIRole HCl 0.5 MG No Gemfibrozil 600 MG Gemfibrozil 600 MG No predniSONE 10 MG predniSONE 10 MG No 1{table t} Trelegy Ellipta 100-62.5-25 MCG/INH Trelegy Ellipta 100-62.5-25 MCG/INH No SEROquel 200 MG SEROquel 200 MG No 1{table t} QD Cymbalta 60 MG Cymbalta 60 MG No 1{capsu le} QD Aspirin Adult Low Strength 81 MG Aspirin Adult Low Strength 81 MG No 1{table t} Pantoprazol e Sodium 40 MG Pantoprazol e Sodium 40 MG No 1{table t} BID Albuterol Sulfate (2.5 MG/3ML) 0.083% Albuterol Sulfate (2.5 MG/3ML) 0.083% No 3{ml_as _needed } Levothyroxi ne Sodium 75 MCG Levothyroxi ne Sodium 75 MCG No QD Levothyrox ine Sodium 75 MCG traZODone HCl 50 MG traZODone HCl 50 MG No traZODone HCl 50 MG Ventolin HFA 108MCG/A Ventolin HFA 108MCG/A No Ventolin HFA 108MCG/A Aspirin Adult Low Strength 81 MG Aspirin Adult Low Strength 81 MG No 1{table t} Aspirin Adult Low Strength 81 MG SEROquel 200 MG SEROquel 200 MG No 1{table t} QD SEROquel 200 MG Cymbalta 60 MG Cymbalta 60 MG No 1{capsu le} QD Cymbalta 60 MG Albuterol Sulfate (2.5 MG/3ML) 0.083% Albuterol Sulfate (2.5 MG/3ML) 0.083% No 3{ml_as _needed } Albuterol Sulfate (2.5 MG/3ML) 0.083% amLODIPine Besylate 5 MG amLODIPine Besylate 5 MG No 1{table t} QD amLODIPine Besylate 5 MG traZODone HCl 50 MG traZODone HCl 50 MG No traZODone HCl 50 MG Ventolin HFA 108MCG/A Ventolin HFA 108MCG/A No Ventolin HFA 108MCG/A Aspirin Adult Low Strength 81 MG Aspirin Adult Low Strength 81 MG No 1{table t} Aspirin Adult Low Strength 81 MG SEROquel 200 MG SEROquel 200 MG No 1{table t} QD SEROquel 200 MG Cymbalta 60 MG Cymbalta 60 MG No 1{capsu le} QD Cymbalta 60 MG Albuterol Sulfate (2.5 MG/3ML) 0.083% Albuterol Sulfate (2.5 MG/3ML) 0.083% No 3{ml_as _needed } Albuterol Sulfate (2.5 MG/3ML) 0.083% amLODIPine Besylate 5 MG amLODIPine Besylate 5 MG No 1{table t} QD amLODIPine Besylate 5 MG Gemfibrozil 600 MG Gemfibrozil 600 MG No BID Gemfibrozi l 600 MG rOPINIRole HCl 0.5 MG rOPINIRole HCl 0.5 MG No 1{table t} TID rOPINIRole HCl 0.5 MG Pantoprazol e Sodium 40 MG Pantoprazol e Sodium 40 MG No 1{table t} BID Pantoprazo le Sodium 40 MG Levothyroxi ne Sodium 75 MCG Levothyroxi ne Sodium 75 MCG No QD Levothyrox ine Sodium 75 MCG Metoprolol Tartrate 50 MG Metoprolol Tartrate 50 MG No 1{table t_with_ food} BID Metoprolol Tartrate 50 MG Levothyroxi ne Sodium 50 MCG Levothyroxi ne Sodium 50 MCG No QD Levothyrox ine Sodium 50 MCG Metoprolol Tartrate 50 MG Metoprolol Tartrate 50 MG No 1{table t_with_ food} BID Metoprolol Tartrate 50 MG Trelegy Ellipta 100-62.5-25 MCG/INH Trelegy Ellipta 100-62.5-25 MCG/INH No Trelegy Ellipta 100-62.5-2 5 MCG/INH Ondansetron HCl 8 MG Ondansetron HCl 8 MG No 1{table t_as_ne eded} QD Ondansetro n HCl 8 MG Ventolin HFA 108MCG/A Ventolin HFA 108MCG/A No Ventolin HFA 108MCG/A Levothyroxi ne Sodium 50 MCG Levothyroxi ne Sodium 50 MCG No QD Levothyrox ine Sodium 50 MCG SEROquel 200 MG SEROquel 200 MG No 1{table t} QD SEROquel 200 MG Metoprolol Tartrate 50 MG Metoprolol Tartrate 50 MG No 1{table t_with_ food} BID Metoprolol Tartrate 50 MG Albuterol Sulfate (2.5 MG/3ML) 0.083% Albuterol Sulfate (2.5 MG/3ML) 0.083% No 3{ml_as _needed } Albuterol Sulfate (2.5 MG/3ML) 0.083% rOPINIRole HCl 0.5 MG rOPINIRole HCl 0.5 MG No 1{table t} TID rOPINIRole HCl 0.5 MG Trelegy Ellipta 100-62.5-25 MCG/INH Trelegy Ellipta 100-62.5-25 MCG/INH No Trelegy Ellipta 100-62.5-2 5 MCG/INH Gemfibrozil 600 MG Gemfibrozil 600 MG No BID Gemfibrozi l 600 MG traZODone HCl 50 MG traZODone HCl 50 MG No traZODone HCl 50 MG Pantoprazol e Sodium 40 MG Pantoprazol e Sodium 40 MG No 1{table t} QD Pantoprazo le Sodium 40 MG Ondansetron HCl 8 MG Ondansetron HCl 8 MG No 1{table t_as_ne eded} QD Ondansetro n HCl 8 MG Cymbalta 60 MG Cymbalta 60 MG No 1{capsu le} QD Cymbalta 60 MG Aspirin Adult Low Strength 81 MG Aspirin Adult Low Strength 81 MG No 1{table t} Aspirin Adult Low Strength 81 MG amLODIPine Besylate 5 MG amLODIPine Besylate 5 MG No 1{table t} QD amLODIPine Besylate 5 MG Levothyroxi ne Sodium 50 MCG Levothyroxi ne Sodium 50 MCG No QD Levothyrox ine Sodium 50 MCG Metoprolol Tartrate 50 MG Metoprolol Tartrate 50 MG No BID Metoprolol Tartrate 50 MG Ondansetron HCl 8 MG Ondansetron HCl 8 MG No Ondansetro n HCl 8 MG Gemfibrozil 600 MG Gemfibrozil 600 MG No Gemfibrozi l 600 MG Vitamin D3 1000 UNIT Vitamin D3 1000 UNIT No 1{capsu le} QD Vitamin D3 1000 UNIT Pantoprazol e Sodium 40 MG Pantoprazol e Sodium 40 MG No Pantoprazo le Sodium 40 MG Aspirin Adult Low Strength 81 MG Aspirin Adult Low Strength 81 MG No 1{table t} Aspirin Adult Low Strength 81 MG Albuterol Sulfate (2.5 MG/3ML) 0.083% Albuterol Sulfate (2.5 MG/3ML) 0.083% No 3{ml_as _needed } Albuterol Sulfate (2.5 MG/3ML) 0.083% rOPINIRole HCl 0.5 MG rOPINIRole HCl 0.5 MG No rOPINIRole HCl 0.5 MG traZODone HCl 50 MG traZODone HCl 50 MG No traZODone HCl 50 MG SEROquel 200 MG SEROquel 200 MG No 1{table t} QD SEROquel 200 MG Cymbalta 60 MG Cymbalta 60 MG No 1{capsu le} QD Cymbalta 60 MG amLODIPine Besylate 5 MG amLODIPine Besylate 5 MG No QD amLODIPine Besylate 5 MG Metoprolol Tartrate 50 MG Metoprolol Tartrate 50 MG No BID Metoprolol Tartrate 50 MG SEROquel 200 MG SEROquel 200 MG No 1{table t} QD SEROquel 200 MG Ventolin HFA 108MCG/A Ventolin HFA 108MCG/A No Ventolin HFA 108MCG/A Gemfibrozil 600 MG Gemfibrozil 600 MG No Gemfibrozi l 600 MG Cymbalta 60 MG Cymbalta 60 MG No 1{capsu le} QD Cymbalta 60 MG Aspirin Adult Low Strength 81 MG Aspirin Adult Low Strength 81 MG No 1{table t} Aspirin Adult Low Strength 81 MG Levothyroxi ne Sodium 75 MCG Levothyroxi ne Sodium 75 MCG No QD Levothyrox ine Sodium 75 MCG Albuterol Sulfate (2.5 MG/3ML) 0.083% Albuterol Sulfate (2.5 MG/3ML) 0.083% No 3{ml_as _needed } Albuterol Sulfate (2.5 MG/3ML) 0.083% Ondansetron HCl 8 MG Ondansetron HCl 8 MG No Ondansetro n HCl 8 MG Pantoprazol e Sodium 40 MG Pantoprazol e Sodium 40 MG No Pantoprazo le Sodium 40 MG traZODone HCl 50 MG traZODone HCl 50 MG No traZODone HCl 50 MG amLODIPine Besylate 5 MG amLODIPine Besylate 5 MG No QD amLODIPine Besylate 5 MG rOPINIRole HCl 0.5 MG rOPINIRole HCl 0.5 MG No rOPINIRole HCl 0.5 MG Metoprolol Tartrate 50 MG Metoprolol Tartrate 50 MG No BID Metoprolol Tartrate 50 MG SEROquel 200 MG SEROquel 200 MG No 1{table t} QD SEROquel 200 MG Ventolin HFA 108MCG/A Ventolin HFA 108MCG/A No Ventolin HFA 108MCG/A Gemfibrozil 600 MG Gemfibrozil 600 MG No Gemfibrozi l 600 MG Cymbalta 60 MG Cymbalta 60 MG No 1{capsu le} QD Cymbalta 60 MG Aspirin Adult Low Strength 81 MG Aspirin Adult Low Strength 81 MG No 1{table t} Aspirin Adult Low Strength 81 MG Levothyroxi ne Sodium 75 MCG Levothyroxi ne Sodium 75 MCG No QD Levothyrox ine Sodium 75 MCG Albuterol Sulfate (2.5 MG/3ML) 0.083% Albuterol Sulfate (2.5 MG/3ML) 0.083% No 3{ml_as _needed } Albuterol Sulfate (2.5 MG/3ML) 0.083% Ondansetron HCl 8 MG Ondansetron HCl 8 MG No Ondansetro n HCl 8 MG Pantoprazol e Sodium 40 MG Pantoprazol e Sodium 40 MG No Pantoprazo le Sodium 40 MG traZODone HCl 50 MG traZODone HCl 50 MG No traZODone HCl 50 MG amLODIPine Besylate 5 MG amLODIPine Besylate 5 MG No QD amLODIPine Besylate 5 MG rOPINIRole HCl 0.5 MG rOPINIRole HCl 0.5 MG No rOPINIRole HCl 0.5 MG amLODIPine Besylate 5 MG amLODIPine Besylate 5 MG No amLODIPine Besylate 5 MG Trelegy Ellipta 100-62.5-25 MCG/INH Trelegy Ellipta 100-62.5-25 MCG/INH No Trelegy Ellipta 100-62.5-2 5 MCG/INH rOPINIRole HCl 0.5 MG rOPINIRole HCl 0.5 MG No rOPINIRole HCl 0.5 MG Aspirin Adult Low Strength 81 MG Aspirin Adult Low Strength 81 MG No 1{table t} Aspirin Adult Low Strength 81 MG Gemfibrozil 600 MG Gemfibrozil 600 MG No Gemfibrozi l 600 MG Vitamin D3 1000 UNIT Vitamin D3 1000 UNIT No 1{capsu le} QD Vitamin D3 1000 UNIT traZODone HCl 50 MG traZODone HCl 50 MG No traZODone HCl 50 MG Pantoprazol e Sodium 40 MG Pantoprazol e Sodium 40 MG No Pantoprazo le Sodium 40 MG Cymbalta 60 MG Cymbalta 60 MG No 1{capsu le} QD Cymbalta 60 MG Albuterol Sulfate (2.5 MG/3ML) 0.083% Albuterol Sulfate (2.5 MG/3ML) 0.083% No 3{ml_as _needed } Albuterol Sulfate (2.5 MG/3ML) 0.083% Ondansetron HCl 8 MG Ondansetron HCl 8 MG No Ondansetro n HCl 8 MG SEROquel 200 MG SEROquel 200 MG No 1{table t} QD SEROquel 200 MG Metoprolol Tartrate 50 MG Metoprolol Tartrate 50 MG No Metoprolol Tartrate 50 MG Levothyroxi ne Sodium 75 MCG Levothyroxi ne Sodium 75 MCG No QD Levothyrox ine Sodium 75 MCG amLODIPine Besylate 5 MG amLODIPine Besylate 5 MG No amLODIPine Besylate 5 MG Trelegy Ellipta 100-62.5-25 MCG/INH Trelegy Ellipta 100-62.5-25 MCG/INH No Trelegy Ellipta 100-62.5-2 5 MCG/INH rOPINIRole HCl 0.5 MG rOPINIRole HCl 0.5 MG No rOPINIRole HCl 0.5 MG Aspirin Adult Low Strength 81 MG Aspirin Adult Low Strength 81 MG No 1{table t} Aspirin Adult Low Strength 81 MG Gemfibrozil 600 MG Gemfibrozil 600 MG No Gemfibrozi l 600 MG Vitamin D3 1000 UNIT Vitamin D3 1000 UNIT No 1{capsu le} QD Vitamin D3 1000 UNIT traZODone HCl 50 MG traZODone HCl 50 MG No traZODone HCl 50 MG Pantoprazol e Sodium 40 MG Pantoprazol e Sodium 40 MG No Pantoprazo le Sodium 40 MG Cymbalta 60 MG Cymbalta 60 MG No 1{capsu le} QD Cymbalta 60 MG Albuterol Sulfate (2.5 MG/3ML) 0.083% Albuterol Sulfate (2.5 MG/3ML) 0.083% No 3{ml_as _needed } Albuterol Sulfate (2.5 MG/3ML) 0.083% Ondansetron HCl 8 MG Ondansetron HCl 8 MG No Ondansetro n HCl 8 MG SEROquel 200 MG SEROquel 200 MG No 1{table t} QD SEROquel 200 MG Metoprolol Tartrate 50 MG Metoprolol Tartrate 50 MG No Metoprolol Tartrate 50 MG Levothyroxi ne Sodium 75 MCG Levothyroxi ne Sodium 75 MCG No QD Levothyrox ine Sodium 75 MCG amLODIPine Besylate 5 MG amLODIPine Besylate 5 MG No amLODIPine Besylate 5 MG Trelegy Ellipta 100-62.5-25 MCG/INH Trelegy Ellipta 100-62.5-25 MCG/INH No Trelegy Ellipta 100-62.5-2 5 MCG/INH rOPINIRole HCl 0.5 MG rOPINIRole HCl 0.5 MG No rOPINIRole HCl 0.5 MG Aspirin Adult Low Strength 81 MG Aspirin Adult Low Strength 81 MG No 1{table t} Aspirin Adult Low Strength 81 MG Gemfibrozil 600 MG Gemfibrozil 600 MG No Gemfibrozi l 600 MG Vitamin D3 1000 UNIT Vitamin D3 1000 UNIT No 1{capsu le} QD Vitamin D3 1000 UNIT traZODone HCl 50 MG traZODone HCl 50 MG No traZODone HCl 50 MG Pantoprazol e Sodium 40 MG Pantoprazol e Sodium 40 MG No Pantoprazo le Sodium 40 MG Cymbalta 60 MG Cymbalta 60 MG No 1{capsu le} QD Cymbalta 60 MG Albuterol Sulfate (2.5 MG/3ML) 0.083% Albuterol Sulfate (2.5 MG/3ML) 0.083% No 3{ml_as _needed } Albuterol Sulfate (2.5 MG/3ML) 0.083% Ondansetron HCl 8 MG Ondansetron HCl 8 MG No Ondansetro n HCl 8 MG SEROquel 200 MG SEROquel 200 MG No 1{table t} QD SEROquel 200 MG Metoprolol Tartrate 50 MG Metoprolol Tartrate 50 MG No Metoprolol Tartrate 50 MG Levothyroxi ne Sodium 75 MCG Levothyroxi ne Sodium 75 MCG No QD Levothyrox ine Sodium 75 MCG amLODIPine Besylate 5 MG amLODIPine Besylate 5 MG No amLODIPine Besylate 5 MG Trelegy Ellipta 100-62.5-25 MCG/INH Trelegy Ellipta 100-62.5-25 MCG/INH No Trelegy Ellipta 100-62.5-2 5 MCG/INH rOPINIRole HCl 0.5 MG rOPINIRole HCl 0.5 MG No rOPINIRole HCl 0.5 MG Aspirin Adult Low Strength 81 MG Aspirin Adult Low Strength 81 MG No 1{table t} Aspirin Adult Low Strength 81 MG Gemfibrozil 600 MG Gemfibrozil 600 MG No Gemfibrozi l 600 MG Vitamin D3 1000 UNIT Vitamin D3 1000 UNIT No 1{capsu le} QD Vitamin D3 1000 UNIT traZODone HCl 50 MG traZODone HCl 50 MG No traZODone HCl 50 MG Pantoprazol e Sodium 40 MG Pantoprazol e Sodium 40 MG No Pantoprazo le Sodium 40 MG Cymbalta 60 MG Cymbalta 60 MG No 1{capsu le} QD Cymbalta 60 MG Albuterol Sulfate (2.5 MG/3ML) 0.083% Albuterol Sulfate (2.5 MG/3ML) 0.083% No 3{ml_as _needed } Albuterol Sulfate (2.5 MG/3ML) 0.083% Ondansetron HCl 8 MG Ondansetron HCl 8 MG No Ondansetro n HCl 8 MG SEROquel 200 MG SEROquel 200 MG No 1{table t} QD SEROquel 200 MG Metoprolol Tartrate 50 MG Metoprolol Tartrate 50 MG No Metoprolol Tartrate 50 MG Levothyroxi ne Sodium 75 MCG Levothyroxi ne Sodium 75 MCG No QD Levothyrox ine Sodium 75 MCG amLODIPine Besylate 5 MG amLODIPine Besylate 5 MG No amLODIPine Besylate 5 MG Trelegy Ellipta 100-62.5-25 MCG/INH Trelegy Ellipta 100-62.5-25 MCG/INH No Trelegy Ellipta 100-62.5-2 5 MCG/INH rOPINIRole HCl 0.5 MG rOPINIRole HCl 0.5 MG No rOPINIRole HCl 0.5 MG Aspirin Adult Low Strength 81 MG Aspirin Adult Low Strength 81 MG No 1{table t} Aspirin Adult Low Strength 81 MG Gemfibrozil 600 MG Gemfibrozil 600 MG No Gemfibrozi l 600 MG Vitamin D3 1000 UNIT Vitamin D3 1000 UNIT No 1{capsu le} QD Vitamin D3 1000 UNIT traZODone HCl 50 MG traZODone HCl 50 MG No traZODone HCl 50 MG Pantoprazol e Sodium 40 MG Pantoprazol e Sodium 40 MG No Pantoprazo le Sodium 40 MG Cymbalta 60 MG Cymbalta 60 MG No 1{capsu le} QD Cymbalta 60 MG Albuterol Sulfate (2.5 MG/3ML) 0.083% Albuterol Sulfate (2.5 MG/3ML) 0.083% No 3{ml_as _needed } Albuterol Sulfate (2.5 MG/3ML) 0.083% Ondansetron HCl 8 MG Ondansetron HCl 8 MG No Ondansetro n HCl 8 MG SEROquel 200 MG SEROquel 200 MG No 1{table t} QD SEROquel 200 MG Metoprolol Tartrate 50 MG Metoprolol Tartrate 50 MG No Metoprolol Tartrate 50 MG Levothyroxi ne Sodium 75 MCG Levothyroxi ne Sodium 75 MCG No QD Levothyrox ine Sodium 75 MCG amLODIPine Besylate 5 MG amLODIPine Besylate 5 MG No amLODIPine Besylate 5 MG Trelegy Ellipta 100-62.5-25 MCG/INH Trelegy Ellipta 100-62.5-25 MCG/INH No Trelegy Ellipta 100-62.5-2 5 MCG/INH rOPINIRole HCl 0.5 MG rOPINIRole HCl 0.5 MG No rOPINIRole HCl 0.5 MG Aspirin Adult Low Strength 81 MG Aspirin Adult Low Strength 81 MG No 1{table t} Aspirin Adult Low Strength 81 MG Gemfibrozil 600 MG Gemfibrozil 600 MG No Gemfibrozi l 600 MG Vitamin D3 1000 UNIT Vitamin D3 1000 UNIT No 1{capsu le} QD Vitamin D3 1000 UNIT traZODone HCl 50 MG traZODone HCl 50 MG No traZODone HCl 50 MG Pantoprazol e Sodium 40 MG Pantoprazol e Sodium 40 MG No Pantoprazo le Sodium 40 MG Cymbalta 60 MG Cymbalta 60 MG No 1{capsu le} QD Cymbalta 60 MG Albuterol Sulfate (2.5 MG/3ML) 0.083% Albuterol Sulfate (2.5 MG/3ML) 0.083% No 3{ml_as _needed } Albuterol Sulfate (2.5 MG/3ML) 0.083% Ondansetron HCl 8 MG Ondansetron HCl 8 MG No Ondansetro n HCl 8 MG SEROquel 200 MG SEROquel 200 MG No 1{table t} QD SEROquel 200 MG Metoprolol Tartrate 50 MG Metoprolol Tartrate 50 MG No Metoprolol Tartrate 50 MG Levothyroxi ne Sodium 75 MCG Levothyroxi ne Sodium 75 MCG No QD Levothyrox ine Sodium 75 MCG amLODIPine Besylate 5 MG amLODIPine Besylate 5 MG No amLODIPine Besylate 5 MG Trelegy Ellipta 100-62.5-25 MCG/INH Trelegy Ellipta 100-62.5-25 MCG/INH No Trelegy Ellipta 100-62.5-2 5 MCG/INH rOPINIRole HCl 0.5 MG rOPINIRole HCl 0.5 MG No rOPINIRole HCl 0.5 MG Aspirin Adult Low Strength 81 MG Aspirin Adult Low Strength 81 MG No 1{table t} Aspirin Adult Low Strength 81 MG Gemfibrozil 600 MG Gemfibrozil 600 MG No Gemfibrozi l 600 MG Vitamin D3 1000 UNIT Vitamin D3 1000 UNIT No 1{capsu le} QD Vitamin D3 1000 UNIT traZODone HCl 50 MG traZODone HCl 50 MG No traZODone HCl 50 MG Pantoprazol e Sodium 40 MG Pantoprazol e Sodium 40 MG No Pantoprazo le Sodium 40 MG Cymbalta 60 MG Cymbalta 60 MG No 1{capsu le} QD Cymbalta 60 MG Albuterol Sulfate (2.5 MG/3ML) 0.083% Albuterol Sulfate (2.5 MG/3ML) 0.083% No 3{ml_as _needed } Albuterol Sulfate (2.5 MG/3ML) 0.083% Ondansetron HCl 8 MG Ondansetron HCl 8 MG No Ondansetro n HCl 8 MG SEROquel 200 MG SEROquel 200 MG No 1{table t} QD SEROquel 200 MG Metoprolol Tartrate 50 MG Metoprolol Tartrate 50 MG No Metoprolol Tartrate 50 MG Levothyroxi ne Sodium 75 MCG Levothyroxi ne Sodium 75 MCG No QD Levothyrox ine Sodium 75 MCG traZODone HCl 50 MG traZODone HCl 50 MG No traZODone HCl 50 MG Vitamin D3 1000 UNIT Vitamin D3 1000 UNIT No 1{capsu le} QD Vitamin D3 1000 UNIT Aspirin Adult Low Strength 81 MG Aspirin Adult Low Strength 81 MG No 1{table t} Aspirin Adult Low Strength 81 MG amLODIPine Besylate 5 MG amLODIPine Besylate 5 MG No amLODIPine Besylate 5 MG rOPINIRole HCl 0.5 MG rOPINIRole HCl 0.5 MG No rOPINIRole HCl 0.5 MG Pantoprazol e Sodium 40 MG Pantoprazol e Sodium 40 MG No Pantoprazo le Sodium 40 MG Metoprolol Tartrate 50 MG Metoprolol Tartrate 50 MG No Metoprolol Tartrate 50 MG Trelegy Ellipta 100-62.5-25 MCG/INH Trelegy Ellipta 100-62.5-25 MCG/INH No Trelegy Ellipta 100-62.5-2 5 MCG/INH SEROquel 200 MG SEROquel 200 MG No 1{table t} QD SEROquel 200 MG Albuterol Sulfate (2.5 MG/3ML) 0.083% Albuterol Sulfate (2.5 MG/3ML) 0.083% No 3{ml_as _needed } Albuterol Sulfate (2.5 MG/3ML) 0.083% Levothyroxi ne Sodium 75 MCG Levothyroxi ne Sodium 75 MCG No QD Levothyrox ine Sodium 75 MCG Cymbalta 60 MG Cymbalta 60 MG No 1{capsu le} QD Cymbalta 60 MG traZODone HCl 50 MG traZODone HCl 50 MG No traZODone HCl 50 MG Vitamin D3 1000 UNIT Vitamin D3 1000 UNIT No 1{capsu le} QD Vitamin D3 1000 UNIT Aspirin Adult Low Strength 81 MG Aspirin Adult Low Strength 81 MG No 1{table t} Aspirin Adult Low Strength 81 MG amLODIPine Besylate 5 MG amLODIPine Besylate 5 MG No amLODIPine Besylate 5 MG rOPINIRole HCl 0.5 MG rOPINIRole HCl 0.5 MG No rOPINIRole HCl 0.5 MG Pantoprazol e Sodium 40 MG Pantoprazol e Sodium 40 MG No Pantoprazo le Sodium 40 MG Metoprolol Tartrate 50 MG Metoprolol Tartrate 50 MG No Metoprolol Tartrate 50 MG Trelegy Ellipta 100-62.5-25 MCG/INH Trelegy Ellipta 100-62.5-25 MCG/INH No Trelegy Ellipta 100-62.5-2 5 MCG/INH SEROquel 200 MG SEROquel 200 MG No 1{table t} QD SEROquel 200 MG Albuterol Sulfate (2.5 MG/3ML) 0.083% Albuterol Sulfate (2.5 MG/3ML) 0.083% No 3{ml_as _needed } Albuterol Sulfate (2.5 MG/3ML) 0.083% Levothyroxi ne Sodium 75 MCG Levothyroxi ne Sodium 75 MCG No QD Levothyrox ine Sodium 75 MCG Cymbalta 60 MG Cymbalta 60 MG No 1{capsu le} QD Cymbalta 60 MG Metoprolol Tartrate 50 MG Metoprolol Tartrate 50 MG No Metoprolol Tartrate 50 MG Cymbalta 60 MG Cymbalta 60 MG No 1{capsu le} QD Cymbalta 60 MG Vitamin D3 1000 UNIT Vitamin D3 1000 UNIT No 1{capsu le} QD Vitamin D3 1000 UNIT Pantoprazol e Sodium 40 MG Pantoprazol e Sodium 40 MG No Pantoprazo le Sodium 40 MG traZODone HCl 50 MG traZODone HCl 50 MG No traZODone HCl 50 MG Aspirin Adult Low Strength 81 MG Aspirin Adult Low Strength 81 MG No 1{table t} Aspirin Adult Low Strength 81 MG amLODIPine Besylate 5 MG amLODIPine Besylate 5 MG No QD amLODIPine Besylate 5 MG Levothyroxi ne Sodium 75 MCG Levothyroxi ne Sodium 75 MCG No QD Levothyrox ine Sodium 75 MCG SEROquel 200 MG SEROquel 200 MG No 1{table t} QD SEROquel 200 MG Albuterol Sulfate (2.5 MG/3ML) 0.083% Albuterol Sulfate (2.5 MG/3ML) 0.083% No 3{ml_as _needed } Albuterol Sulfate (2.5 MG/3ML) 0.083% rOPINIRole HCl 0.5 MG rOPINIRole HCl 0.5 MG No rOPINIRole HCl 0.5 MG Trelegy Ellipta 100-62.5-25 MCG/INH Trelegy Ellipta 100-62.5-25 MCG/INH No Trelegy Ellipta 100-62.5-2 5 MCG/INH Metoprolol Tartrate 50 MG Metoprolol Tartrate 50 MG No Metoprolol Tartrate 50 MG Cymbalta 60 MG Cymbalta 60 MG No 1{capsu le} QD Cymbalta 60 MG Vitamin D3 1000 UNIT Vitamin D3 1000 UNIT No 1{capsu le} QD Vitamin D3 1000 UNIT Pantoprazol e Sodium 40 MG Pantoprazol e Sodium 40 MG No Pantoprazo le Sodium 40 MG traZODone HCl 50 MG traZODone HCl 50 MG No traZODone HCl 50 MG Aspirin Adult Low Strength 81 MG Aspirin Adult Low Strength 81 MG No 1{table t} Aspirin Adult Low Strength 81 MG amLODIPine Besylate 5 MG amLODIPine Besylate 5 MG No QD amLODIPine Besylate 5 MG Levothyroxi ne Sodium 75 MCG Levothyroxi ne Sodium 75 MCG No QD Levothyrox ine Sodium 75 MCG SEROquel 200 MG SEROquel 200 MG No 1{table t} QD SEROquel 200 MG Albuterol Sulfate (2.5 MG/3ML) 0.083% Albuterol Sulfate (2.5 MG/3ML) 0.083% No 3{ml_as _needed } Albuterol Sulfate (2.5 MG/3ML) 0.083% rOPINIRole HCl 0.5 MG rOPINIRole HCl 0.5 MG No rOPINIRole HCl 0.5 MG Trelegy Ellipta 100-62.5-25 MCG/INH Trelegy Ellipta 100-62.5-25 MCG/INH No Trelegy Ellipta 100-62.5-2 5 MCG/INH Metoprolol Tartrate 50 MG Metoprolol Tartrate 50 MG No Metoprolol Tartrate 50 MG Cymbalta 60 MG Cymbalta 60 MG No 1{capsu le} QD Cymbalta 60 MG Vitamin D3 1000 UNIT Vitamin D3 1000 UNIT No 1{capsu le} QD Vitamin D3 1000 UNIT Pantoprazol e Sodium 40 MG Pantoprazol e Sodium 40 MG No Pantoprazo le Sodium 40 MG traZODone HCl 50 MG traZODone HCl 50 MG No traZODone HCl 50 MG Aspirin Adult Low Strength 81 MG Aspirin Adult Low Strength 81 MG No 1{table t} Aspirin Adult Low Strength 81 MG amLODIPine Besylate 5 MG amLODIPine Besylate 5 MG No QD amLODIPine Besylate 5 MG Levothyroxi ne Sodium 75 MCG Levothyroxi ne Sodium 75 MCG No QD Levothyrox ine Sodium 75 MCG SEROquel 200 MG SEROquel 200 MG No 1{table t} QD SEROquel 200 MG Albuterol Sulfate (2.5 MG/3ML) 0.083% Albuterol Sulfate (2.5 MG/3ML) 0.083% No 3{ml_as _needed } Albuterol Sulfate (2.5 MG/3ML) 0.083% rOPINIRole HCl 0.5 MG rOPINIRole HCl 0.5 MG No rOPINIRole HCl 0.5 MG Trelegy Ellipta 100-62.5-25 MCG/INH Trelegy Ellipta 100-62.5-25 MCG/INH No Trelegy Ellipta 100-62.5-2 5 MCG/INH Immunizations Ordered Immunization Name Filled Immunization Name Date Status Comments Source FLUZONE HIGH DOSE OVER 65 FLUZONE HIGH DOSE OVER 65 2022-08-23 15:32:00 Completed [facility] FLUZONE HIGH DOSE OVER 65 FLUZONE HIGH DOSE OVER 65 2022-08-23 15:32:00 Completed [facility] FLUZONE HIGH DOSE OVER 65 FLUZONE HIGH DOSE OVER 65 2020-06-01 11:03:00 Completed [facility] FLUZONE HIGH DOSE OVER 65 FLUZONE HIGH DOSE OVER 65 2020-06-01 11:03:00 Completed [facility] FLUZONE HIGH DOSE OVER 65 FLUZONE HIGH DOSE OVER 65 2020-06-01 11:03:00 Completed [facility] FLUZONE HIGH DOSE OVER 65 FLUZONE HIGH DOSE OVER 65 2020-06-01 11:03:00 Completed [facility] FLUZONE HIGH DOSE OVER 65 FLUZONE HIGH DOSE OVER 65 2020-06-01 11:03:00 Completed [facility] FLUZONE HIGH DOSE OVER 65 FLUZONE HIGH DOSE OVER 65 2020-06-01 11:03:00 Completed [facility] FLUZONE HIGH DOSE OVER 65 FLUZONE HIGH DOSE OVER 65 2020-06-01 11:03:00 Completed [facility] FLUZONE HIGH DOSE OVER 65 FLUZONE HIGH DOSE OVER 65 2020-06-01 11:03:00 Completed [facility] FLUZONE HIGH DOSE OVER 65 FLUZONE HIGH DOSE OVER 65 2020-06-01 11:03:00 Completed [facility] FLUZONE HIGH DOSE OVER 65 FLUZONE HIGH DOSE OVER 65 2020-06-01 11:03:00 Completed [facility] FLUZONE HIGH DOSE OVER 65 FLUZONE HIGH DOSE OVER 65 2020-06-01 11:03:00 Completed [facility] FLUZONE HIGH DOSE OVER 65 FLUZONE HIGH DOSE OVER 65 2020-06-01 11:03:00 Completed [facility] FLUZONE HIGH DOSE OVER 65 FLUZONE HIGH DOSE OVER 65 2020-06-01 11:03:00 Completed [facility] FLUZONE HIGH DOSE OVER 65 FLUZONE HIGH DOSE OVER 65 2020-06-01 11:03:00 Completed [facility] FLUZONE HIGH DOSE OVER 65 FLUZONE HIGH DOSE OVER 65 2020-06-01 11:03:00 Completed [facility] FLUZONE HIGH DOSE OVER 65 FLUZONE HIGH DOSE OVER 65 2020-06-01 11:03:00 Completed [facility] FLUZONE HIGH DOSE OVER 65 FLUZONE HIGH DOSE OVER 65 2020-06-01 11:03:00 Completed [facility] FLUZONE HIGH DOSE OVER 65 FLUZONE HIGH DOSE OVER 65 2020-06-01 11:03:00 Completed [facility] FLUZONE HIGH DOSE OVER 65 FLUZONE HIGH DOSE OVER 65 2020-06-01 11:03:00 Completed [facility] FLUZONE HIGH DOSE OVER 65 FLUZONE HIGH DOSE OVER 65 Unknown Completed [facility] FLUZONE HIGH DOSE OVER 65 FLUZONE HIGH DOSE OVER 65 Unknown Completed [facility] FLUZONE HIGH DOSE OVER 65 FLUZONE HIGH DOSE OVER 65 Unknown Completed [facility] FLUZONE HIGH DOSE OVER 65 FLUZONE HIGH DOSE OVER 65 Unknown Completed [facility] FLUZONE HIGH DOSE OVER 65 FLUZONE HIGH DOSE OVER 65 Unknown Completed [facility] FLUZONE HIGH DOSE OVER 65 FLUZONE HIGH DOSE OVER 65 Unknown Completed [facility] FLUZONE HIGH DOSE OVER 65 FLUZONE HIGH DOSE OVER 65 Unknown Completed [facility] FLUZONE HIGH DOSE OVER 65 FLUZONE HIGH DOSE OVER 65 Unknown Completed [facility] FLUZONE HIGH DOSE OVER 65 FLUZONE HIGH DOSE OVER 65 Unknown Completed [facility] FLUZONE HIGH DOSE OVER 65 FLUZONE HIGH DOSE OVER 65 Unknown Completed [facility] FLUZONE HIGH DOSE OVER 65 FLUZONE HIGH DOSE OVER 65 Unknown Completed [facility] FLUZONE HIGH DOSE OVER 65 FLUZONE HIGH DOSE OVER 65 Unknown Completed [facility] FLUZONE HIGH DOSE OVER 65 FLUZONE HIGH DOSE OVER 65 Unknown Completed [facility] FLUZONE HIGH DOSE OVER 65 FLUZONE HIGH DOSE OVER 65 Unknown Completed [facility] FLUZONE HIGH DOSE OVER 65 FLUZONE HIGH DOSE OVER 65 Unknown Completed [facility] FLUZONE HIGH DOSE OVER 65 FLUZONE HIGH DOSE OVER 65 Unknown Completed [facility] FLUZONE HIGH DOSE OVER 65 FLUZONE HIGH DOSE OVER 65 Unknown Completed [facility] FLUZONE HIGH DOSE OVER 65 FLUZONE HIGH DOSE OVER 65 Unknown Completed [facility] FLUZONE HIGH DOSE OVER 65 FLUZONE HIGH DOSE OVER 65 Unknown Completed [facility] FLUZONE HIGH DOSE OVER 65 FLUZONE HIGH DOSE OVER 65 Unknown Completed [facility] FLUZONE HIGH DOSE OVER 65 FLUZONE HIGH DOSE OVER 65 Unknown Completed [facility] FLUZONE HIGH DOSE OVER 65 FLUZONE HIGH DOSE OVER 65 Unknown Completed [facility] FLUZONE HIGH DOSE OVER 65 FLUZONE HIGH DOSE OVER 65 Unknown Completed [facility] FLUZONE HIGH DOSE OVER 65 FLUZONE HIGH DOSE OVER 65 Unknown Completed [facility] FLUZONE HIGH DOSE OVER 65 FLUZONE HIGH DOSE OVER 65 Unknown Completed [facility] FLUZONE HIGH DOSE OVER 65 FLUZONE HIGH DOSE OVER 65 Unknown Completed [facility] FLUZONE HIGH DOSE OVER 65 FLUZONE HIGH DOSE OVER 65 Unknown Completed [facility] FLUZONE HIGH DOSE OVER 65 FLUZONE HIGH DOSE OVER 65 Unknown Completed [facility] FLUZONE HIGH DOSE OVER 65 FLUZONE HIGH DOSE OVER 65 Unknown Completed [facility] FLUZONE HIGH DOSE OVER 65 FLUZONE HIGH DOSE OVER 65 Unknown Completed [facility] FLUZONE HIGH DOSE OVER 65 FLUZONE HIGH DOSE OVER 65 Unknown Completed [facility] FLUZONE HIGH DOSE OVER 65 FLUZONE HIGH DOSE OVER 65 Unknown Completed [facility] Vital Signs Vital Name Observation Time Observation Value Comments S ource height 2023-11-07 11:20:00 62 [in_i[facility] 11:20:00 89 [lb_av] [facility]mi 2023-11-07 11:20:00 16.28 kg/m2 Comm on [facility] 2023-11-02 16:00:00 62 [in_i] [facility] weight 2023-11-02 16:00:00 89 [lb_av] [facility] bmi 2023-11-02 16:00:00 16.28 kg/m2 Comm on [facility] height 2023-09-06 14:20:00 62 [in_i] [facility] 2023-09-06 14:20:00 87 [lb_av] [facility] bmi 2023-09-06 14:20:00 15.91 kg/m2 Comm on [facility] 2023-08-31 11:20:00 62 [in_i] [facility] 2023-08-31 11:20:00 87 [lb_av] Commo n [facility] temperature 2023-08-31 11:20:00 97.1 [degF] Com [facility] bmi 2023-08-31 11:20:00 15.91 kg/m2 Comm on [facility] blood pressure systolic 2023-08-31 11:20:00 142 mm[Hg] [facility] blood pressure diastolic 2023-08-31 11:20:00 88 mm[Hg] [facility] height 2023-08-31 11:20:00 62 [in_i] Commo n [facility] weight 2023-08-31 11:20:00 87 [lb_av] Commo n [facility] temperature 2023-08-31 11:20:00 97.1 [degF] Com [facility] bmi 2023-08-31 11:20:00 15.91 kg/m2 Comm on [facility] oximetry 2023-08-31 11:20:00 99 % [facility]mo n [facility] respiratory rate 2023-08-31 11:20:00 15 /min [facility] blood pressure systolic 2023-08-31 11:20:00 142 mm[Hg] [facility] blood pressure diastolic 2023-08-31 11:20:00 88 mm[Hg] [facility] height 2022-08-23 15:00:00 62 [in_i] Commo n [facility] weight 2022-08-23 15:00:00 85.2 [lb_av] Com [facility] temperature 2022-08-23 15:00:00 97.2 [degF] Com [facility] bmi 2022-08-23 15:00:00 15.58 kg/m2 Comm on [facility] oximetry 2022-08-23 15:00:00 91 % Commo n [facility] respiratory rate 2022-08-23 15:00:00 16 /min [facility] blood pressure systolic 2022-08-23 15:00:00 136 mm[Hg] [facility] blood pressure diastolic 2022-08-23 15:00:00 80 mm[Hg] [facility] height 2022-08-23 15:40:00 62 [in_i] Commo n [facility] weight 2022-08-23 15:40:00 85.2 [lb_av] Com [facility] temperature 2022-08-23 15:40:00 97.2 [degF] Com [facility] bmi 2022-08-23 15:40:00 15.58 kg/m2 Comm on [facility] oximetry 2022-08-23 15:40:00 91 % Commo n [facility] respiratory rate 2022-08-23 15:40:00 16 /min [facility] blood pressure systolic 2022-08-23 15:40:00 136 mm[Hg] Common [facility] blood pressure diastolic 2022-08-23 15:40:00 80 mm[Hg] [facility] height 2022-02-23 10:20:00 62 [in_i] Commo n [facility] weight 2022-02-23 10:20:00 96 [lb_av] Commo n [facility] temperature 2022-02-23 10:20:00 99.0 [degF] Com [facility] bmi 2022-02-23 10:20:00 17.56 kg/m2 Comm on [facility] height 2021-10-27 16:20:00 62 [in_i] Commo n [facility] weight 2021-10-27 16:20:00 95.8 [lb_av] Com [facility] temperature 2021-10-27 16:20:00 97.3 [degF] Com [facility] bmi 2021-10-27 16:20:00 17.52 kg/m2 Comm on [facility] oximetry 2021-10-27 16:20:00 98 % Commo n [facility] respiratory rate 2021-10-27 16:20:00 18 /min [facility] blood pressure systolic 2021-10-27 16:20:00 159 mm[Hg] [facility] blood pressure diastolic 2021-10-27 16:20:00 74 mm[Hg] [facility] height 2021-06-01 08:20:00 62 [in_i] Commo n [facility] weight 2021-06-01 08:20:00 89.4 [lb_av] Com [facility] temperature 2021-06-01 08:20:00 97.9 [degF] Com [facility] bmi 2021-06-01 08:20:00 16.35 kg/m2 Comm on [facility] oximetry 2021-06-01 08:20:00 99 % Commo n [facility] respiratory rate 2021-06-01 08:20:00 16 /min [facility] blood pressure systolic 2021-06-01 08:20:00 98 mm[Hg] [facility] blood pressure diastolic 2021-06-01 08:20:00 54 mm[Hg] [facility] Encounters Start Date/Time End Date/Time Encounter Type Admission Type Attending Clinicians Care Facility Care Department Encounter ID Source 2023-09-06 13:12:00 Outpatient Yesenia Jodie [facility] [id number] [facility] 2022-08-23 09:21:01 Outpatient Jodie Patterson [facility] [id number] [facility] 2022-08-01 15:10:00 [place] [facility] [id number] [facility] 2022-07-14 11:37:00 Outpatient Kaylene Polo [facility] [id number] [facility] 2022-03-03 08:01:00 Outpatient Kaylene Polo [facility] [id number] [facility] 2021-11-03 09:35:00 [place] [facility] [id number] [facility] 2021-10-27 17:04:00 Outpatient Kaylene Polo [facility] [id number] [facility] 2021-10-25 11:15:01 Outpatient Kaylene Polo [facility] [id number] [facility] 2021-07-20 14:06:12 Outpatient Kaylene Polo [facility] [id number] [facility] 2021-07-20 12:10:57 Outpatient Kaylene Polo [facility] [id number] [facility] 2021-07-20 11:20:37 Outpatient Kaylene Polo [facility] [id number] [facility] 2021-07-20 11:08:50 Outpatient Kaylene Polo [facility] [id number] [facility] 2021-07-20 11:00:43 [place] [facility] [id number] [facility] 2021-07-20 10:57:27 Outpatient [place] Kaylene [facility] [id number] [facility] 2023-11-07 00:00:00 2023-11-07 00:00:00 OFFICE VISIT ESTAB PT LEVEL 4 [facility] [id number] [facility] 2023-11-07 00:00:00 2023-11-07 00:00:00 (TEL) [facility] [id number] [facility] 2023-11-02 00:00:00 2023-11-02 00:00:00 OFFICE VISIT ESTAB PT LEVEL 4 [facility] [id number] [facility] 2023-11-02 00:00:00 2023-11-02 00:00:00 (TEL) [facility] [id number] [facility] 2023-09-06 00:00:00 2023-09-06 00:00:00 OFFICE VISIT ESTAB PT LEVEL 4 [facility] [id number] [facility] 2023-09-06 00:00:00 2023-09-06 00:00:00 (TEL) [facility] [id number] [facility] 2023-08-31 00:00:00 2023-08-31 00:00:00 SUB ANNUAL MCR WELLNESS VISIT [facility] [id number] [facility] 2023-08-31 00:00:00 2023-08-31 00:00:00 OFFICE VISIT ESTAB PT LEVEL 5 [facility] [id number] [facility] 2023-08-31 00:00:00 2023-08-31 00:00:00 (TEL) [facility] [id number] [facility] 2023-08-08 00:00:00 2023-08-08 00:00:00 (TEL) [facility] [id number] [facility] 2023-04-10 00:00:00 2023-04-10 00:00:00 (TEL) [facility] [id number] [facility] 2022-12-07 00:00:00 2022-12-07 00:00:00 (TEL) [facility] [id number] [facility] 2022-11-02 00:00:00 2022-11-02 00:00:00 (TEL) [facility] [id number] [facility] 2022-09-07 00:00:00 2022-09-07 00:00:00 (TEL) [facility] [id number] [facility] 2022-08-23 00:00:00 2022-08-23 00:00:00 OFFICE VISIT ESTAB PT LEVEL 4 [facility] [id number] [facility] 2022-08-23 00:00:00 2022-08-23 00:00:00 SUB ANNUAL [facility] WELLNESS VISIT [facility] [id number] [facility] 2022-07-12 00:00:00 2022-07-12 00:00:00 (TEL) [facility] [id number] [facility] 2022-03-24 00:00:00 2022-03-24 00:00:00 (TEL) [facility] [id number] [facility] 2022-02-23 00:00:00 2022-02-23 00:00:00 OL DIG E/M SVC 11-20 MIN [facility] [id number] [facility] 2022-02-23 00:00:00 2022-02-23 00:00:00 (TEL) [facility] [id number] [facility] 2021-12-14 00:00:00 2021-12-14 00:00:00 (TEL) [facility] [id number] [facility] 2021-10-27 00:00:00 2021-10-27 00:00:00 OFFICE VISIT EST PT LEVEL 3 STLMLC STLMLC [id number] [facility] 2021-09-19 00:00:00 2021-09-19 00:00:00 (TEL) STLMLC STLMLC [id number] [facility] 2021-07-09 00:00:00 2021-07-09 00:00:00 (TEL) STLMLC STLMLC [id number] [facility] 2021-07-08 00:00:00 2021-07-08 00:00:00 (TEL) STLMLC STLMLC [id number] [facility] 2021-07-08 00:00:00 2021-07-08 00:00:00 (TEL) STLMLC STLMLC [id number] [facility] 2021-07-08 00:00:00 2021-07-08 00:00:00 (TEL) STLMLC STLMLC [id number] [facility] 2021-07-08 00:00:00 2021-07-08 00:00:00 (TEL) STLMLC STLMLC [id number] [facility] 2021-07-08 00:00:00 2021-07-08 00:00:00 (TEL) STLMLC STLMLC [id number] [facility] 2021-07-08 00:00:00 2021-07-08 00:00:00 (TEL) STLMLC STLMLC [id number] [facility] 2021-07-06 00:00:00 2021-07-06 00:00:00 (TEL) STLMLC STLMLC [id number] [facility] 2021-06-01 00:00:00 2021-06-01 00:00:00 OFFICE VISIT EST PT LEVEL 3 STLMLC STLMLC [id number] [facility] 2021-04-21 00:00:00 2021-04-21 00:00:00 (TEL) STLMLC STLMLC [id number] [facility] 2021-04-04 00:00:00 2021-04-04 00:00:00 (TEL) STLMLC STLMLC [id number] [facility] 2021-01-25 00:00:00 2021-01-25 00:00:00 Outpatient STLMLC STLMLC [id number] [facility] 2020-12-21 00:00:00 2020-12-21 00:00:00 Outpatient STLMLC STLMLC [id number] [facility] 2020-12-17 00:00:00 2020-12-17 00:00:00 Outpatient STLMLC STLMLC [id number] [facility] 2020-09-15 00:00:00 2020-09-15 00:00:00 Outpatient STLMLC STLMLC [id number] [facility] 2020-08-30 00:00:00 2020-08-30 00:00:00 Outpatient STLMLC STLMLC [id number] [facility] 2020-08-27 00:00:00 2020-08-27 00:00:00 Outpatient STLMLC STLMLC [id number] [facility] 2020-08-26 00:00:00 2020-08-26 00:00:00 Outpatient STLMLC STLMLC [id number] [facility] 2020-06-01 00:00:00 2020-06-01 00:00:00 Outpatient STLMLC STLMLC [id number] [facility] 2019-12-16 09:18:00 2019-12-16 09:18:00 [facility] [id number] [facility] 2019-11-27 13:00:00 2019-11-27 13:00:00 [facility] [id number] [facility] 2019-10-29 09:20:00 2019-10-29 09:20:00 [facility] [id number] [facility] 2019-08-26 10:00:00 2019-08-26 10:00:00 [facility] [id number] [facility] 2019-08-14 10:40:00 2019-08-14 10:40:00 Outpatient [facility] [id number] [facility] 2019-07-09 14:20:00 2019-07-09 14:20:00 Outpatient [facility] [id number] [facility] 2019-06-27 10:20:00 2019-06-27 10:20:00 Outpatient [facility] [id number] [facility]
[2023-11-18] MEDS ORDERED: LEVALBUTEROL 1.25 MG/3 ML NEB ONE (11:37)
[2023-11-18] MEDS ORDERED: IPRATROPIUM BROM 0.5MG/2.5ML ONE (11:37)
[2023-11-18] MEDS ORDERED: DIPHENHYDRAMINE 50 MG/ML VIAL ONE ×2 (11:38→17:27)
[2023-11-18] MEDS ORDERED: METOCLOPRAMIDE 10 MG/2mL INJ ONE (11:38)
[2023-11-18] MEDS ORDERED: NA CHLORIDE 0.9% 1,000 ML ONE (11:38)
--- NOTE | 2023-11-18 11:55 | RAD REPORT ---
EXAM DESCRIPTION: RAD - Chest Single View - 11/18/2023 11:27 am CLINICAL HISTORY: Chest pain;SOB COMPARISON: Chest Single View dated 11/17/2023; Chest Single View dated 11/16/2023; Chest Single View dated 11/14/2023; Chest Single View dated 04/27/2023; Chest For Pe Angio dated 04/27/2023 FINDINGS: Lines: None. Lungs: Worsening airspace disease at the right lung base. Emphysema. Pleural: Blunting of the costophrenic angles. Cardiac: The heart size is within normal limits. Mediastinum: Within normal limits. Bones: No acute fractures. Other: None IMPRESSION: Worsened aeration of the right lung base concerning for pneumonia with small effusion. S uggest follow-up radiography in 4-6 weeks to ensure resolution.
[2023-11-18 12:13] LABS: Eosinophils % 0.3 % (0-4.4)
[2023-11-18 12:42] LABS: Hemoglobin 10.4 g/dL (12.0-15.0); MCH 26.8 pg (27.0-35.0); MCHC 30.6 g/dL (32.0-36.0); MCV 87.5 fL (80-100); RBC Red Blood Cell Count 3.88 M/uL (3.86-4.86)
[2023-11-18 12:43] LABS: Basophils % 0.2 % (0-1.3); Lymphocytes % 5.3 % (15.3-44.8); MPV 7.8 fL (7.6-11.3); Monocytes % 6.8 % (3.3-12.3); Neutrophils % 87.4 % (41.7-73.7); Platelets 255 thou/uL (152-406); Red Cell Distribution Width 15.4 % (12.1-15.2)
[2023-11-18 12:49] LABS: Absolute Neutrophil 13.4 K/uL (1.8-8.0)
[2023-11-18 12:50] LABS: Absolute Lymphocytes (CBC) 0.8 K/uL (0.7-4.9)
[2023-11-18 12:53] LABS: Troponin High Sensitivity 14.3 pg/mL (<58.9)
[2023-11-18 13:05] LABS: Band Neutrophils 1 % (0-1); Blood Morphology Comment NOT SEEN (NOT SEEN); Differential Total Cells Count 100; Lymphocytes 4 % (15-42); Monocytes 3 % (0-10); Platelet Estimate ADEQ; Segmented Neutrophils 92 % (40-80); Toxic Granulation 1+
[2023-11-18] MEDS ORDERED: CEFTRIAXONE 1000 MG/VIAL ONE (13:46)
[2023-11-18] MEDS ORDERED: AZITHROMYCIN 500 MG INJ IVPB ONE (13:46)
[2023-11-18] MEDS ORDERED: NA CHLORIDE 0.9% 250 ML ONE (13:46)
[2023-11-18 14:14] LABS: PT Prothrombin Time 11.4 SECONDS (9.5-12.5); PTT, Activated Partial Thromb 31.1 SECONDS (24.3-36.9); Protime INR 1.04
--- NOTE | 2023-11-18 14:54 | ER ---
Nurse's Notes [facility] Name: Louise Raines Age: 73 yrs Sex: Female : 1950 Arrival Date: 11/18/2023 Time: 10:58 Bed 4 Private MD: Diagnosis: Pneumonia;Hypoxia;Sepsis Presentation: 11/17 11:09 Chief complaint: EMS states: pt was discharged from here yesterday for COPD and kc6 pneumonia. pt states she was not ready to go home and is still feeling bad. Coronavirus screen: At this time, the client does not indicate any symptoms associated with coronavirus-19. Ebola Screen: No symptoms or risks identified at this time. Initial Sepsis Screen: Does the patient meet any 2 criteria? HR > 90 bpm. Does the patient have a suspected source of infection? No. Patient's initial sepsis screen is negative. Risk Assessment: Do you want to hurt yourself or someone else? Patient reports no desire to harm self or others. Onset of symptoms was November 18, 2023. 11:09 Method Of Arrival: EMS: [facility] kc6 11:09 Acuity: JAIME 3 kc6 Triage Assessment: 11:10 General: Appears in no apparent distress. uncomfortable, slender, well groomed, kc6 Behavior is calm, cooperative, appropriate for age. EENT: No signs and/or symptoms were reported regarding the EENT system. Neuro: Level of Consciousness is awake, alert, obeys commands, Oriented to person, place, time, situation, Appropriate for age Reports headache. Cardiovascular: Denies chest pain, Heart tones S1 S2 present Capillary refill < 3 seconds Rhythm is sinus tachycardia. Respiratory: Reports shortness of breath at rest on exertion cough that is productive, Airway is patent Trachea midline Respiratory effort is even, labored, pursed lip, using tripod position, Respiratory pattern is symmetrical. GI: No signs and/or symptoms were reported involving the gastrointestinal system. : No signs and/or symptoms were reported regarding the genitourinary system. Derm: No signs and/or symptoms reported regarding the dermatologic system. Skin is intact, with poor turgor Skin is dry, Skin is normal, Skin temperature is warm. Musculoskeletal: No signs and/or symptoms reported regarding the musculoskeletal system. Circulation, motion, and sensation intact. Capillary refill < 3 seconds, Range of motion: intact in all extremities. Historical: - Allergies: 11:10 Adhesives; kc6 11:10 ambien; kc6 11:10 Baclofen; kc6 11:10 Iodinated Contrast Media - IV Dye; kc6 11:10 Iodine; kc6 - PMHx: 11:10 Continuous home O2 \T\ 5L; COPD; Hypertension; Hypothyroidism; ulcerative colitis; kc6 - PSHx: 11:10 Cholecystectomy; colon and rectal sx; stent placed in left arm; Total abdominal kc6 hysterectomy; - Immunization history:: Adult Immunizations up to date. - Infectious Disease History:: Denies. - Social history:: Smoking status: Patient reports the use of cigarette tobacco products, smokes one-half pack cigarettes per day. - Family history:: not pertinent. Screenin:12 [facility] ED Fall Risk Assessment (Adult) History of falling in the last 3 months, kc6 including since admission No falls in past 3 months (0 pts) Confusion or Disorientation No (0 pts) Intoxicated or Sedated No (0 pts) Impaired Gait No (0 pts) Mobility Assist Device Used No (0 pt) Altered Elimination No (0 pt) Score/Fall Risk Level 0 - 2 = Low Risk. Abuse screen: Denies threats or abuse. Denies injuries from another. Nutritional screening: No deficits noted. Tuberculosis screening: No symptoms or risk factors identified. Assessment: 11:13 Reassessment: please see triage. [facility] 12:15 Reassessment: Patient appears in no apparent distress at this time. No changes from [facility] previously documented assessment. Patient and/or family updated on plan of care and expected duration. Pain level reassessed. Patient is alert, oriented x 3, equal unlabored respirations, skin warm/dry/pink. 13:15 Reassessment: Patient appears in no apparent distress at this time. No changes from kc6 previously documented assessment. Patient and/or family updated on plan of care and expected duration. Pain level reassessed. Patient is alert, oriented x 3, equal unlabored respirations, skin warm/dry/pink. 14:15 Reassessment: Patient appears in no apparent distress at this time. No changes from [facility] previously documented assessment. Patient and/or family updated on plan of care and expected duration. Pain level reassessed. Patient is alert, oriented x 3, equal unlabored respirations, skin warm/dry/pink. 15:15 Reassessment: Patient appears in no apparent distress at this time. No changes from kc6 previously documented assessment. Patient and/or family updated on plan of care and expected duration. Pain level reassessed. Patient is alert, oriented x 3, equal unlabored respirations, skin warm/dry/pink. 16:15 Reassessment: Patient appears in no apparent distress at this time. No changes from kc6 previously documented assessment. Patient and/or family updated on plan of care and expected duration. Pain level reassessed. Patient is alert, oriented x 3, equal unlabored respirations, skin warm/dry/pink. 17:15 Reassessment: Patient appears in no apparent distress at this time. No changes from kc6 previously documented assessment. Patient and/or family updated on plan of care and expected duration. Pain level reassessed. Patient is alert, oriented x 3, equal unlabored respirations, skin warm/dry/pink. Vital Signs: 11:09 BP 127 / 59; Pulse 119; Resp 19 S; Temp 98.5(O); Pulse Ox 92% on 3 lpm NC; Weight 40.37 kc6 kg; Height 5 ft. 1 in. (R); 12:15 BP 138 / 61; Pulse 105; Resp 19 S; Pulse Ox 95% on 3 lpm NC; kc6 13:28 BP 162 / 64; Pulse 96; Resp 17 S; Pulse Ox 96% on 3 lpm NC; kc6 13:58 BP 162 / 64; Pulse 107; Resp 16; Pulse Ox 93% on 3 lpm NC; ld1 15:56 BP 157 / 72; Pulse 99; Resp 14 S; Pulse Ox 99% on 3 lpm NC; kc6 11:09 Body Mass Index 16.82 (40.37 kg, 154.94 cm) kc6 ED Course: 11:02 Patient arrived in ED. eb 11:02 Tha Gonzalez MD is Attending Physician. rt 11:09 Nicolette Sanches, ADWOA is Primary Nurse. kc6 11:10 Triage completed. kc6 11:10 Arm band placed on. kc6 11:12 Patient has correct armband on for positive identification. Placed in gown. Bed in low kc6 position. Call light in reach. Side rails up X2. Adult w/ patient. Client placed on continuous cardiac and pulse oximetry monitoring. NIBP monitoring applied. groundwater monitoring technician on. Pillow given. 11:12 Pulse ox on. NIBP on. hb 11:12 EKG done, by ED staff, reviewed by Tha Gonzalez MD. hb 11:29 XRAY Chest (1 view) In Process Unspecified. EDMS 12:12 Missed attempt(s): 22 gauge in right antecubital area. ld1 12:29 Troponin HS Sent. as6 12:29 NT PRO-BNP Sent. as6 12:29 Magnesium Sent. as6 12:29 Basic Metabolic Panel Sent. as6 12:30 Accessed peripheral vein via ultrasound, utilizing dynamic ultrasound technique Blood as6 collected. using 20G Nexia IV catheter per hospital protocol. Clean \T\ dry. Dressing intact. Good blood return. Flushes easily. 20g 8cm midline to right upper arm . 14:51 Donte Gallego MD is Hospitalizing Provider. rt 18:11 No provider procedures requiring assistance completed. Patient admitted, IV remains in kc6 place. Administered Medications: 11:49 Drug: Ipratropium Inhalation Aerosol 0.5 mg Inhalation once Route: Inhalation; kc6 13:39 Follow up: Response: No adverse reaction kc6 11:49 Drug: Levalbuterol Inhalation 1.25 mg Inhalation once Route: Inhalation; kc6 13:39 Follow up: Response: No adverse reaction kc6 12:32 Drug: NS 0.9% IV 1000 ml IV at 1 bolus Per protocol; 1000 mL bolus Route: IV; Rate: 1 kc6 bolus; Site: right forearm; 13:39 Follow up: Response: No adverse reaction; IV Status: Completed infusion; IV Intake: kc6 1000ml 12:32 Drug: metoCLOPramide IVP 10 mg IVP once; over 1 to 2 minutes Route: IVP; Site: right kc6 forearm; 13:39 Follow up: Response: No adverse reaction kc6 12:32 Drug: diphenhydrAMINE IVP 25 mg IVP once Route: IVP; Site: right forearm; kc6 13:39 Follow up: Response: No adverse reaction kc6 13:55 Drug: Rocephin IV 1 grams IV at calculated rate once; Given slow IV push per pharmacy kc6 instructions Route: IV; Rate: calculated rate; Site: right forearm; 18:00 Follow up: Response: No adverse reaction; IV Status: Completed infusion; IV Intake: [id number] 13:55 Drug: AZITHromycin IVPB 500 mg IVPB once over 1 hrs; (mix in 250 mL NS) Route: IVPB; kc6 Infused Over: 1 hrs; Site: right forearm; 18:00 Follow up: Response: No adverse reaction; IV Status: Completed infusion; IV Intake: kc6 250ml Medication: 18:11 VIS not applicable for this client. kc6 Intake: 13:39 IV: 1000ml; Total: 1000ml. kc6 18:00 IV: 10ml; Total: 1010ml. kc6 18:00 IV: 250ml; Total: 1260ml. kc6 Outcome: 14:53 Decision to Hospitalize by Provider. rt 18:11 Admitted to Med/surg accompanied by tech, via stretcher, room 232, with oxygen, with kc6 chart, 18:11 Condition: stable 18:11 Instructed on the need for admit, 18:11 Patient left the ED. kc6 Signatures: Dispatcher [employer] EDRonna Jama, RN RN Amena Rios Lauren, RN RN ld1 Panfilo Cesar RN RN [email or web address] Nicolette Sanches RN RN kc6 Tha Gonzalez MD MD rt
--- NOTE | 2023-11-18 14:54 | EDPHYS ---
Physician Documentation [facility] Name: Louise Raines Age: 73 yrs Sex: Female : 1950 Arrival Date: 11/18/2023 Time: 10:58 Bed 4 Private MD: ED Physician Tha Gonzalez HPI: 11/17 18:38 This 73 yrs old Female presents to ER via EMS with complaints of Shortness Of Breath. rt 18:38 Patient presents to the ED with dyspnea. Patient was worse admitted for pneumonia, rt COPD. Was discharged yesterday. States that the sats were in the 70s at home, breathing worsened. Denies other acute complaints at this time, symptoms are severe in severity, no other aggravating or alleviating factors.. Historical: - Allergies: 11:10 Adhesives; kc6 11:10 ambien; kc6 11:10 Baclofen; kc6 11:10 Iodinated Contrast Media - IV Dye; kc6 11:10 Iodine; kc6 - PMHx: 11:10 Continuous home O2 \T\ 5L; COPD; Hypertension; Hypothyroidism; ulcerative colitis; kc6 - PSHx: 11:10 Cholecystectomy; colon and rectal sx; stent placed in left arm; Total abdominal kc6 hysterectomy; - Immunization history:: Adult Immunizations up to date. - Infectious Disease History:: Denies. - Social history:: Smoking status: Patient reports the use of cigarette tobacco products, smokes one-half pack cigarettes per day. - Family history:: not pertinent. ROS: 18:38 Constitutional: Negative for fever, chills, and weight loss, Cardiovascular: Negative rt for chest pain, palpitations, and edema, Abdomen/GI: Negative for abdominal pain, nausea, vomiting, diarrhea, and constipation, MS/Extremity: Negative for injury and deformity, Skin: Negative for injury, rash, and discoloration, Neuro: Negative for headache, weakness, numbness, tingling, and seizure, Psych: Negative for depression, anxiety, suicide ideation, homicidal ideation, and hallucinations, 18:38 Respiratory: Positive for cough, shortness of breath, Exam: 18:38 Constitutional: This is a well developed, well nourished patient who is awake, alert, rt and in no acute distress. Head/Face: Normocephalic, atraumatic. Chest/axilla: Normal chest wall appearance and motion. Nontender with no deformity. No lesions are appreciated. Cardiovascular: Regular rate and rhythm with a normal S1 and S2. No gallops, murmurs, or rubs. Normal PMI, no JVD. No pulse deficits. Skin: Warm, dry with normal turgor. Normal color with no rashes, no lesions, and no evidence of cellulitis. MS/ Extremity: Pulses equal, no cyanosis. Neurovascular intact. Full, normal range of motion. Neuro: Awake and alert, GCS 15, oriented to person, place, time, and situation. Cranial nerves II-XII grossly intact. Motor strength 5/5 in all extremities. Sensory grossly intact. Cerebellar exam normal. Normal gait. 18:38 ECG was reviewed by the Attending Physician. 18:38 Respiratory: Wheezes heard on all lung craft, moderate respiratory distress, Vital Signs: 11:09 BP 127 / 59; Pulse 119; Resp 19 S; Temp 98.5(O); Pulse Ox 92% on 3 lpm NC; Weight 40.37 kc6 kg; Height 5 ft. 1 in. (R); 12:15 BP 138 / 61; Pulse 105; Resp 19 S; Pulse Ox 95% on 3 lpm NC; kc6 13:28 BP 162 / 64; Pulse 96; Resp 17 S; Pulse Ox 96% on 3 lpm NC; kc6 13:58 BP 162 / 64; Pulse 107; Resp 16; Pulse Ox 93% on 3 lpm NC; ld1 15:56 BP 157 / 72; Pulse 99; Resp 14 S; Pulse Ox 99% on 3 lpm NC; kc6 11:09 Body Mass Index 16.82 (40.37 kg, 154.94 cm) [facility] MDM: 11:15 Patient medically screened. rt 18:38 Differential diagnosis: COPD, pneumonia, pneumothorax. Data reviewed: vital signs, rt nurses notes, lab test result(s), EKG, radiologic studies. Consideration of Admission/Observation Patient was admitted/placed on observation. Management of patient was discussed with the following: Hospitalist: Agrees to admit. Independent interpretation of the following test(s) in the Emergency Department X-Ray: My interpretation is Right lower lobe consolidation seen on interpretation of x-ray images. Test considered but Not performed: CT: Low suspicion for PE, CT angiogram not indicated. Care significantly affected by the following chronic conditions: Chronic Obstructive Pulmonary Disease. Counseling: I had a detailed discussion with the patient and/or guardian regarding the historical points, exam findings, and any diagnostic results supporting the discharge/admit diagnosis, lab results, radiology results, the need for further work-up and treatment in the hospital. Response to treatment: the patient's symptoms have mildly improved after treatment. 11/17 11:22 Order name: Basic Metabolic Panel; Complete Time: 13:08 rt 11/17 11:22 Order name: CBC with Diff; Complete Time: 13:08 rt 11/17 11:22 Order name: Magnesium; Complete Time: 13:08 rt 11/17 11:22 Order name: NT PRO-BNP; Complete Time: 13:08 rt 11/17 11:22 Order name: Troponin HS; Complete Time: 13: rt 11/17 12:21 Order name: Manual Differential; Complete Time: 13: EDMS 11/17 13:38 Order name: Blood Culture Adult (2) rt 11/17 13:38 Order name: Lactate w/ 2H reflex if indic.; Complete Time: 14:19 rt 11/17 13:38 Order name: Protime (+inr); Complete Time: 14:19 rt 11/17 13:38 Order name: Ptt, Activated; Complete Time: 14:19 rt 11/17 16:34 Order name: CBC with Automated Diff EDMS 11/17 16:34 Order name: CBC with Automated Diff EDMS 11/17 16:34 Order name: CBC with Automated Diff EDMS 11/17 16:34 Order name: CBC with Automated Diff EDMS 11/17 16:34 Order name: Comprehensive Metabolic Panel EDMS 11/17 16:34 Order name: Comprehensive Metabolic Panel EDMS 11/17 16:34 Order name: Comprehensive Metabolic Panel EDMS 11/17 16:34 Order name: Comprehensive Metabolic Panel EDMS 11/17 16:34 Order name: Lipid Profile EDMS 11/17 16:34 Order name: Lipid Profile EDMS 11/17 16:34 Order name: Magnesium EDMS 11/17 16:34 Order name: Magnesium EDMS 11/17 16:34 Order name: Magnesium EDMS 11/17 16:34 Order name: Magnesium EDMS 11/17 16:34 Order name: Phosphorus EDMS 11/17 16:34 Order name: Phosphorus EDMS 11/17 16:34 Order name: Phosphorus [facility] 11/17 16:34 Order name: Phosphorus [facility] 11/17 11:15 Order name: XRAY Chest (1 view); Complete Time: 11:57 ld1 11/17 18:07 Order name: CT [facility] 11/17 11:22 Order name: EKG; Complete Time: 11:22 rt 11/17 16:34 Order name: CONS Physician Consult [facility] 11/17 16:34 Order name: CONS [facility] Cons [facility] 11/17 11:22 Order name: Cardiac monitoring; Complete Time: 11:28 rt 11/17 11:22 Order name: EKG - Nurse/Tech; Complete Time: 12:10 rt 11/17 11:22 Order name: IV Saline Lock; Complete Time: 12:29 rt 11/17 11:22 Order name: Labs collected and sent; Complete Time: 12:29 rt 11/17 11:22 Order name: O2 Per Protocol; Complete Time: 11:28 rt 11/17 11:22 Order name: O2 Sat Monitoring; Complete Time: 11:28 rt 11/17 13:38 Order name: Accucheck; Complete Time: 13:39 rt 11/17 13:38 Order name: IV Saline Lock - Large Bore; Complete Time: 13:39 rt 11/17 13:38 Order name: Vital Signs; Complete Time: 13:39 rt EC:38 Rate is 106 beats/min. Rhythm is regular, Sinus tachycardia with No ectopy. QRS Martin is rt Normal. TN interval is shortened. QRS interval is normal. QT interval is normal. No Q waves. Administered Medications: 11:49 Drug: Ipratropium Inhalation Aerosol 0.5 mg Inhalation once Route: Inhalation; kc6 13:39 Follow up: Response: No adverse reaction kc6 11:49 Drug: Levalbuterol Inhalation 1.25 mg Inhalation once Route: Inhalation; kc6 13:39 Follow up: Response: No adverse reaction kc6 12:32 Drug: NS 0.9% IV 1000 ml IV at 1 bolus Per protocol; 1000 mL bolus Route: IV; Rate: 1 kc6 bolus; Site: right forearm; 13:39 Follow up: Response: No adverse reaction; IV Status: Completed infusion; IV Intake: kc6 1000ml 12:32 Drug: metoCLOPramide IVP 10 mg IVP once; over 1 to 2 minutes Route: IVP; Site: right kc6 forearm; 13:39 Follow up: Response: No adverse reaction kc6 12:32 Drug: diphenhydrAMINE IVP 25 mg IVP once Route: IVP; Site: right forearm; kc6 13:39 Follow up: Response: No adverse reaction kc6 13:55 Drug: Rocephin IV 1 grams IV at calculated rate once; Given slow IV push per pharmacy kc6 instructions Route: IV; Rate: calculated rate; Site: right forearm; 18:00 Follow up: Response: No adverse reaction; IV Status: Completed infusion; IV Intake: [id number] 13:55 Drug: AZITHromycin IVPB 500 mg IVPB once over 1 hrs; (mix in 250 mL NS) Route: IVPB; kc6 Infused Over: 1 hrs; Site: right forearm; 18:00 Follow up: Response: No adverse reaction; IV Status: Completed infusion; IV Intake: kc6 250ml Disposition Summary: 11/18/23 14:53 Hospitalization Ordered Notes: Hospitalization Status: Inpatient Admission rt Provider: Donte Gallego rt Location: Telemetry/MedSurg (Inpatient) rt Condition: Fair rt Problem: an ongoing problem rt Symptoms: have improved rt Bed/Room Type: Standard rt Room Assignment: 232(11/18/23 16:50) eb Diagnosis - Pneumonia rt - Hypoxia rt - Sepsis rt Forms: - Medication Reconciliation Form rt - SBAR form rt - Leadership Thank You Letter rt Signatures: Dispatcher [employer] Amena Sigala Kaitlyn, RN RN kc6 Tha Gonzalez MD MD rt Corrections: (The following items were deleted from the chart) 16:50 14:53 rt eb
--- NOTE | 2023-11-18 16:41 | P.HP ---
Certification for Inpatient Patient admitted to: Inpatient With expected LOS: >2 Midnights Patient will require the following post-hospital care: None Practitioner: I am a practitioner with admitting privileges, knowledge of patient current condition, hospital course, and medical plan of care. Services: Services provided to patient in accordance with Admission requirements found in Title 42 Section 412.3 of the Code of Federal Regulations <Muna Patellen - Last Filed: 11/18/23 16:49> Patient History Date of Service: 11/18/23 Reason for admission: worsening pneumonia History of Present Illness: Ms. Raines is a 73-year-old with a past medical history of ulcerative colitis, hypothyroidism, hypertension, COPD who was just discharged from this facility yesterday after a 3-day hospitalization (11/13 thru 11/16) for COPD exacerbation with lower respiratory tract infection, discharged with Doxycycline. Returns today (11/17). She states at home her SpO2 dropped to the 70s despite her 5 L of oxygen at home. On exam she is not significantly worse, however her chest x-ray shows some worsening of the right lower lobe infiltrate. Concern for postobstructive process is high so we will readmit the patient for CT evaluation, consult with Dr. Del Rio for possible bronchoscopy. Home medications list reviewed: Yes - Past Medical/Surgical History Diabetic: No -: COPD, oxygen-dependent -: Hypertension -: History of ulcerative colitis -: Arthritis -: GERD -: Hypothyroidism -: Depression with anxiety -: Restless leg syndrome -: History CVA -: CKD (Dr. Gary) -: Tobacco abuse -: ABF leg aortic replacement -: Cholecystectomy -: Hysterectomy -: Stent -: Colorectal surgery -: Had a stent placed in the left arm Psychosocial/ Personal History: The patient lives with her Daughter. She is a . She has 1 child. Has home O2 at 3.5-5L - Family History Mother -: Hypertension Father Notes: committed suicide - Social History Alcohol use: No CD- Drugs: No Caffeine use: Yes Place of Residence: Home <Muna Patellen - Last Filed: 11/18/23 16:49> Date of Service: 11/18/23 <Yulisa Damon - Last Filed: 11/18/23 17:39> Allergies Iodine and Iodide Containing Produc Allergy (Unknown, Verified 10/30/17 22:35) Hives/Rash adhesive tape Allergy (Verified 10/30/17 22:35) Itching Iodinated Contrast Media Allergy (Verified 12/13/17 23:45) Anaphylaxis zolpidem [From Ambien] Allergy (Verified 10/30/17 22:35) Anaphylaxis Adhesives Allergy (Uncoded 12/13/17 20:04) Unknown Home Medications: Aspirin 81 mg PO DAILY 06/07/18 Levothyroxine Sodium 75 mcg PO DAILY 06/07/18 Metoprolol Tartrate 50 mg PO BID 06/07/18 Ropinirole HCl 0.5 mg PO TID 06/07/18 Pantoprazole [Protonix Tab*] 40 mg PO DAILY 05/31/22 Duloxetine HCl 60 mg PO DAILY 06/07/22 Trazodone [Desyrel*] 100 mg PO BEDTIME 06/07/22 Quetiapine Fumarate [Seroquel] 200 mg PO BEDTIME 10/06/22 Levalbuterol [Xopenex*] 1.25 mg NEB [id number] #60 vial 10/13/22 Lidocaine 4% Patch [Lidoderm 5% Patch*] 1 patch TOP DAILY #30 pat 10/13/22 Arformoterol Tartrate [Brovana] 15 mcg NEB BIDRESP #60 vial.neb 11/17/23 Doxycycline Monohydrate 100 mg PO BID #14 cap 11/17/23 Fluticasone/Umeclidin/Vilanter [Trelegy Ellipta 100-62.5-25] 1 each IH DAILY #1 unit 11/17/23 Ipratropium Neb [Atrovent*] 0.5 mg NEB [id number] #1 pkt 11/17/23 Ipratropium Neb [Atrovent*] 0.5 mg NEB [id number] #60 amp 11/17/23 predniSONE [Deltasone*] 10 mg PO DAILY #7 tab 11/17/23 Review of Systems 10-point ROS is otherwise unremarkable General: As per HPI Respiratory: As per HPI Cardiovascular: As per HPI <Muna Patel Dieudonne - Last Filed: 11/18/23 16:49> Physical Examination - Physical Exam General: Alert, Oriented x3, Cachectic, Mild distress HEENT: Atraumatic, Normocephalic Neck: Supple Respiratory: Normal air movement Cardiovascular: Normal pulses, Regular rate/rhythm Capillary refill: <2 Seconds Gastrointestinal: Soft and benign Musculoskeletal: No clubbing Integumentary: No rashes Neurological: Normal speech, Normal tone, Normal affect Lymphatics: No axilla or inguinal lymphadenopathy External genitalia: Deferred Rectal: Deferred - Studies Laboratory Data (last 24 hrs) 11/18/23 11/18/23 11/18/23 13:40 12:28 12:04 WBC 15.30 H Hgb 10.4 L Hct 34.0 L Plt Count 255 PT 11.4 INR 1.04 APTT 31.1 Sodium 141 Potassium 4.0 BUN 22 H Creatinine 1.04 H Glucose 120 H Magnesium 2.0 <Muna Patel - Last Filed: 11/18/23 16:49> - Studies Laboratory Data (last 24 hrs) 11/18/23 11/18/23 11/18/23 13:40 12:28 12:04 WBC 15.30 H Hgb 10.4 L Hct 34.0 L Plt Count 255 PT 11.4 INR 1.04 APTT 31.1 Sodium 141 Potassium 4.0 BUN 22 H Creatinine 1.04 H Glucose 120 H Magnesium 2.0 <Yulisa Damon - Last Filed: 11/18/23 17:39> Assessment and Plan - Plan COPD exacerbation with lower respiratory infection 1. Continue IV antibiotics (pt took a rx of PCN?, 9 days of Levaquin, hospitalized 11/13 thru 11/16, discharged with Doxycycline. Returns today (11/17) 2. Sputum and blood cultures 3. Repeat chest x-ray 4. CT scanning of the chest if pneumonia is not improved to evaluate for postobstructive pneumonia (premedication for iodine allergy) 5. Respiratory isolation not needed 6. Neb treatments 6 hours, Brovana, Mucomyst (on Trelegy at home as well) 7. O2 per protocol 8. monitor and trend/replete electrolytes 9. Monitor and trend labs including CBC, CMP, and lactate as needed 10. Consult Dr. Del Rio Elevated BNP 1. NORMAL LEFT VENTRICULAR EJECTION FRACTION 55-60%. 2. GRADE I DIASTOLIC DYSFUNCTION. 3. NORMAL WALL MOTION. TECHNOLOGIST: Adrian PRADO Dictated By: Stephen Pope 10/06/22 1300 Hypertension Metoprolol 50 mg p.o. twice daily asa 81mg po daily Hypothyroid Levothyroxine Restless legs Ropinirol GI and DVT prophylaxis Protonix/SCD - Advance Directives Does patient have a Living Will: No Does patient have a Durable POA for Healthcare: No <Muna Patel - Last Filed: 11/18/23 16:49> - Plan Pt seen and examined. I agree with the note by the RADIATION THERAPY TECHNOLOGIST. Pt is a 73 yo female with past medical history of hypertension, hyperlipidemia, and COPD who was discharged from this hospital after treatment of COPD exacerbation with lower respiratory tract infection. Pt failed outpatient therapy with oral abx prior to last admission. She was discharged with Doxy but pt was not able to fill the prescription before readmission. After she was discharged, pt reports that her oxygen saturation dropped to 70% while using 5L BNC at home and she also has productive cough. On admission, lab studies show wbc 15.3 Hgb 10.4, K 4, Cr 1.04, BNP 2651, troponin 14.3, Calcium 10.6. CXR shows some worsening of the right lower lobe infiltrate. It is concerning for postobstructive process. At bedside, Pt is in NAD, using 3L BNC. A/P: Possible Post-obstructive pneumonia: Will continue iv abx, f/u blood cx and CT chest. Consulted Pulm for possible bronch Acute COPD exacerbation: Will continue abx, steroid, 3L BNC and mucinex Diastolic heart failure: Last Echo shows EF 60 65% with grade I diastolic dysfunction. Pt is not volume overloaded Hypercalcemia: Likely due to volume depletion. Will monitor. Calcium is 10.6. Htn: Continue home med. RLS: ropinrole Hypothyroidism: synthroid. Code: full. <Yulisa Damon - Last Filed: 11/18/23 17:39>
[2023-11-18] MEDS: dexAMETHasone 10 MG/ML VIAL IV ONE (17:08)
[2023-11-18] MEDS: DIPHENHYDRAMINE 50 MG/ML VIAL IV ONE (17:08)
[2023-11-18] MEDS ORDERED: SODIUM CHLORIDE 0.9% 10ML INJ IV PRN (17:19)
[2023-11-18] MEDS ORDERED: dexAMETHasone 10 MG/ML VIAL ONE (17:27)
[2023-11-18] MEDS: VANCOMYCIN 750 MG in NA CHLORIDE 0.9% 150 ML IVPB SCH (18:00)
[2023-11-18] MEDS: VANCOMYCIN 1 GM in NA CHLORIDE 0.9% 250 ML IVPB SCH (18:00)
--- NOTE | 2023-11-18 18:07 | RAD REPORT ---
EXAM DESCRIPTION: CT - Chest For Pe Angio - 11/18/2023 5:55 pm CLINICAL HISTORY: readmit for pneumonia (COPD) COMPARISON: Chest For Pe Angio dated 04/27/2023; Chest Abd Pelvis Wo Con dated 10/03/2022; Chest For P e Angio dated 05/30/2022; Chest For Pe Angio dated 04/05/2022; Chest Single View dated 11/18/2023 TECHNIQUE: Dynamically enhanced axial 3 mm thick images of the chest were obtained during administra tion of <100> mL Isovue 370 IV contrast. Coronal and oblique reconstruction images were generated and reviewed. Exam utilizes a protocol for optimal evaluation of pulmonary arterial tree. Maximum intensity projections 3D imaging was utilized All CT scans are performed using dose optimization technique as appropriate and may include automated exposure control or mA/KV adjustment according to patient size. FINDINGS: Chest Wall: No suspicious thyroid nodules or pathologic lymphadenopathy. Lungs: Large area consolidation in the right middle and right lower lobe. There are secretions and/or aspirated material in the right lower lobe bronchi. Moderate to severe emphysema. Pleura: Trace right pleural effusion. Mediastinum/ankush: Right hilar adenopathy which may be reactive. Mild mediastinal adenopathy. Pulmonary arteries/Aorta: No filling defect identified. No aortic aneurysm. Occluded left subclavian artery stent. Diffusely ectatic descending thoracic aorta with areas of irregular plaque. The descend ing thoracic aorta at the hiatus measures up to 3.2 cm. Chronic infrarenal abdominal aortic dissectio n flap which is only partially imaged. Heart: No significant pericardial effusion. Normal heart size. Multi-vessel coronary disease. Upper abdomen: No acute abnormality. Bones: No acute abnormality. IMPRESSION: Negative for pulmonary embolism. Moderate area of confluent consolidation in the right m iddle and right lower lobe which is concerning for pneumonia. Aspiration pneumonia is within the diff erential. Close imaging follow-up is recommended to ensure resolution
[2023-11-18] MEDS: PIPER TAZO 3.375 GM in NA CHLORIDE 0.9% 100 ML IV SCH ×2 (18:15→23:06)
[2023-11-18] MEDS: BUDESONIDE 0.5 MG/2 ML NEB NEB SCH (20:09)
[2023-11-18] MEDS: IPRATROPIUM BROM 0.5MG/2.5ML NEB SCH (20:09)
[2023-11-18] MEDS: ARFORMOTEROL TARTRATE 15 MCG/2 ML VIAL.NEB NEB SCH (20:09)
[2023-11-18] MEDS: ALBUTEROL 2.5 MG/3 ML NEB SOL NEB SCH (20:10)
[2023-11-18] MEDS: ACETYLCYST 20% 4 ML VIAL IH SCH (20:38)
[2023-11-18] MEDS: CLOTRIMAZOLE 10 MG TROCHE PO SCH (21:00)
[2023-11-18] MEDS: WATER FOR INJ,STERILE 10 ML ONE (21:00)
[2023-11-18] MEDS: VANCOMYCIN 750 MG in NA CHLORIDE 0.9% 250 ML IVPB SCH (21:00)
[2023-11-18] MEDS ORDERED: MORPHINE 2 MG/ML SYR IV PRN (21:13)
[2023-11-18] MEDS: NA CHLORIDE 0.9% 250 ML ONE (21:25)
[2023-11-18] MEDS: ROPINIROLE HCL 0.25 MG TAB PO SCH (21:30)
[2023-11-18] MEDS: QUETIAPINE 100MG TAB PO SCH (21:30)
[2023-11-18] MEDS: HYDROCODONE/APAP 7.5/325 MG TAB PO PRN (21:31)
[2023-11-18] MEDS: VANCOMYCIN 1 GM/VIAL ONE (21:36)
[2023-11-19 05:22] LABS: Absolute Lymphocytes (CBC) 0.5 K/uL (0.7-4.9); Absolute Monocytes 0.2 K/uL (0.1-1.3); Absolute Neutrophil 4.8 K/uL (1.8-8.0); Basophils % 0.1 % (0-1.3); Hematocrit 24.5 % (36.0-45.0); Hemoglobin 7.7 g/dL (12.0-15.0); Lymphocytes % 8.6 % (15.3-44.8); MCH 27.6 pg (27.0-35.0); MCHC 31.6 g/dL (32.0-36.0); MCV 87.4 fL (80-100); MPV 8.1 fL (7.6-11.3); Monocytes % 3.3 % (3.3-12.3); Nucleated Red Blood Cells % 0.2 % (0-0); Platelets 181 thou/uL (152-406); Red Cell Distribution Width 14.7 % (12.1-15.2)
[2023-11-19 05:43] LABS: Albumin 2.2 g/dL (3.4-5.0); Albumin/Globulin Ratio 0.6 (1.1-1.8); Anion Gap 6.9 mEq/L (5.0-15.0); Bilirubin Total 0.2 mg/dL (0.2-1.0); Globulin 3.4 g/dL (2.3-3.5); Magnesium 2.1 mg/dL (1.6-2.4); Phosphorus 4.4 mg/dL (2.5-4.9); Potassium 3.9 mEq/L (3.5-5.1); Protein, Total 5.6 g/dL (6.4-8.2); Thyroid Stimulating Hormone 0.794 uIU/mL (0.358-3.740)
[2023-11-19] MEDS: LEVOTHYROXINE SOD 0.075 MG TAB PO SCH (06:05)
--- NOTE | 2023-11-19 07:39 | P.PN ---
Subjective Date of Service: 11/19/23 Chief Complaint: worsening pneumonia Admitted for COPD exacerbation 99% on 5 L will attempt to wean, O2 - Physical Exam General: Alert, Oriented x3, Cachectic, Mild distress HEENT: Atraumatic, Normocephalic Neck: Supple Respiratory: Expiratory wheezes, rhonchi Cardiovascular: Normal pulses, Regular rate/rhythm Capillary refill: <2 Seconds Gastrointestinal: Soft and benign Musculoskeletal: No clubbing Integumentary: No rashes Neurological: Normal speech, Normal tone, Normal affect Lymphatics: No axilla or inguinal lymphadenopathy <Snehal Ruiz - Last Filed: 11/19/23 15:05> Date of Service: 11/19/23 <Melia Vick - Last Filed: 11/22/23 10:19> Review of Systems per HPI <Snehal Ruiz - Last Filed: 11/19/23 15:05> Physical Examination - Vital Signs Temperature: 97.2 F Blood Pressure: 119/50 Pulse: 107 Respirations: 18 Pulse Ox (%): 100 - Studies Laboratory Data (last 24 hrs) 11/18/23 11/18/23 11/18/23 13:40 12:28 12:04 WBC 15.30 H Hgb 10.4 L Hct 34.0 L Plt Count 255 PT 11.4 INR 1.04 APTT 31.1 Sodium 141 Potassium 4.0 BUN 22 H Creatinine 1.04 H Glucose 120 H Magnesium 2.0 <Snehal Ruiz - Last Filed: 11/19/23 15:05> Assessment And Plan - Plan Assessment and Plan Acute hypoxic respiratory failure COPD exacerbation with lower respiratory infection Home O2 dependent 1. Continue IV antibiotics (pt took a rx of PCN?, 9 days of Levaquin, hospitalized 11/13 thru 11/16, discharged with Doxycycline. Returns today (11/17) 2. Sputum and blood cultures 3. Repeat chest x-ray 4. CT scanning of the chest if pneumonia is not improved to evaluate for postobstructive pneumonia (premedication for iodine allergy) 5. Respiratory isolation not needed 6. Neb treatments 6 hours, Brovana, Mucomyst (on Trelegy at home as well) 7. O2 per protocol 8. monitor and trend/replete electrolytes 9. Monitor and trend labs including CBC, CMP, and lactate as needed 10. Consult Dr. Del Rio Home O2 arranged last admission [facility] Pulmonary consulted Elevated BNP 1. NORMAL LEFT VENTRICULAR EJECTION FRACTION 55-60%. 2. GRADE I DIASTOLIC DYSFUNCTION. 3. NORMAL WALL MOTION. TECHNOLOGIST: Adrian PRADO Dictated By: Stephen Pope 10/06/22 1300 Microcytic anemia Trend H&H Hypertension Metoprolol 50 mg p.o. twice daily asa 81mg po daily Hypothyroid Levothyroxine Restless legs Ropinirol GI and DVT prophylaxis Protonix/SCD Disposition Discharge Plan: Longterm - Code Status/Comfort Care Code Status: Full Code Critical Care: No Time Spent Managing PTS Care (In Minutes): 35 <Snehal Ruiz - Last Filed: 11/19/23 15:05> Date of Service: 11/19/23 Patient chart was reviewed and patient was seen and examined. AN history and physical reviewed as well. Agree with the assessment and plan. Patient presented with . Most of the MDM was done by myself and plan of care was discussed with AN as well as the patient. Plan to discharge . Anticipated length of stay is 3 to 4 days. <Melia Vick - Last Filed: 11/22/23 10:19>
[2023-11-19] MEDS: DULOXETINE 30 MG CAP PO SCH (08:42)
[2023-11-19] MEDS: ASPIRIN EC 81 MG TAB PO SCH (08:42)
[2023-11-19] MEDS: CEFTRIAXONE 1,000 MG in NA CHLORIDE 0.9% 50 ML IVPB SCH (08:42)
[2023-11-19] MEDS: PANTOPRAZOLE 40 MG INJ IVP SCH (08:42)
[2023-11-19] MEDS: MORPHINE 4 MG/ML SYR IV PRN (08:45)
--- NOTE | 2023-11-19 09:14 | P.CNS ---
Date of Consult: 11/19/23 Reason for Consult: COPD exacerbation right lower lobe pneumonia Chief Complaint: worsening pneumonia History of Present Illness: Patient is 73 years of age recently admitted with right lower lobe pneumonia discharged came back again complaining of cough congestion shortness of breath very weak feeling very tired found to have a right lower lobe infiltrate Allergies Iodine and Iodide Containing Produc Allergy (Unknown, Verified 10/30/17 22:35) Hives/Rash adhesive tape Allergy (Verified 10/30/17 22:35) Itching Iodinated Contrast Media Allergy (Verified 12/13/17 23:45) Anaphylaxis zolpidem [From Ambien] Allergy (Verified 10/30/17 22:35) Anaphylaxis Adhesives Allergy (Uncoded 12/13/17 20:04) Unknown Home Medications: Aspirin 81 mg PO DAILY 06/07/18 Levothyroxine Sodium 75 mcg PO DAILY 06/07/18 Metoprolol Tartrate 50 mg PO BID 06/07/18 Ropinirole HCl 0.5 mg PO TID 06/07/18 Pantoprazole [Protonix Tab*] 40 mg PO DAILY 05/31/22 Duloxetine HCl 60 mg PO DAILY 06/07/22 Trazodone [Desyrel*] 100 mg PO BEDTIME 06/07/22 Quetiapine Fumarate [Seroquel] 200 mg PO BEDTIME 10/06/22 Levalbuterol [Xopenex*] 1.25 mg NEB [id number] #60 vial 10/13/22 Lidocaine 4% Patch [Lidoderm 5% Patch*] 1 patch TOP DAILY #30 pat 10/13/22 Arformoterol Tartrate [Brovana] 15 mcg NEB BIDRESP #60 vial.neb 11/17/23 Doxycycline Monohydrate 100 mg PO BID #14 cap 11/17/23 Fluticasone/Umeclidin/Vilanter [Trelegy Ellipta 100-62.5-25] 1 each IH DAILY #1 unit 11/17/23 Ipratropium Neb [Atrovent*] 0.5 mg NEB [id number] #1 pkt 11/17/23 Ipratropium Neb [Atrovent*] 0.5 mg NEB [id number] #60 amp 11/17/23 predniSONE [Deltasone*] 10 mg PO DAILY #7 tab 11/17/23 - Past Medical/Surgical History Diabetic: No -: COPD, oxygen-dependent -: Hypertension -: History of ulcerative colitis -: Arthritis -: GERD -: Hypothyroidism -: Depression with anxiety -: Restless leg syndrome -: History CVA -: CKD (Dr. Gary) -: Tobacco abuse -: ABF leg aortic replacement -: Cholecystectomy -: Hysterectomy -: Stent -: Colorectal surgery -: Had a stent placed in the left arm Psychosocial/ Personal History: The patient lives with her Daughter. She is a . She has 1 child. Has home O2 at 3.5-5L - Family History Mother Medical History: Hypertension Father Notes: committed suicide - Social History Smoking Status: Current every day smoker Alcohol use: No CD- Drugs: No Caffeine use: Yes Place of Residence: Home Review of Systems 10-point ROS is otherwise unremarkable General: Weakness Respiratory: Shortness of Breath Physical Examination Temp Pulse Resp BP Pulse Ox 97.2 F 112 H 16 183/75 H 100 11/19/23 08:00 11/19/23 08:00 11/19/23 08:00 11/19/23 08:00 11/19/23 08:00 General: Alert, Moderate distress Respiratory: Expiratory wheezes, Rhonchi/gurgles Cardiovascular: No edema, Regular rate/rhythm, Normal S1 S2 Gastrointestinal: Normal bowel sounds, Soft and benign Musculoskeletal: No clubbing, No swelling Laboratory Data (last 24 hrs) 11/18/23 11/18/23 11/18/23 13:40 12:28 12:04 WBC 15.30 H Hgb 10.4 L Hct 34.0 L Plt Count 255 PT 11.4 INR 1.04 APTT 31.1 Sodium 141 Potassium 4.0 BUN 22 H Creatinine 1.04 H Glucose 120 H Magnesium 2.0 - Problems (1) COPD exacerbation Onset Date: 06/10/18 Current Visit: No Status: Acute Plan: Patient is 73 years of age was recently admitted with COPD exacerbation was discharged home on doxycycline currently she had completed a course of levofloxacin at home back again 3 days later worsening shortness of breath chest x-ray still shows a right lower lobe infiltrate count is now down to normal chest x-ray CT scan report reviewed chest x-ray does not show any significant worsening patient is anemic white count has declined since admission new with present antibiotics continue with Zosyn and vancomycin for now we have for recurrent admission she will need IV treatment presumed Pseudomonas lung infection labs chemistries CT scans all reviewed condition satisfactory provided some Solu-Medrol
[2023-11-19] MEDS: FUROSEMIDE 20 MG/ 2ML VIAL IV ONE (12:05)
[2023-11-19] MEDS: METOPROLOL TAR 50 MG TAB PO ONE (12:05)
[2023-11-19] MEDS ORDERED: NA CHLORIDE 0.9% 250 ML IV SCH (16:00)
[2023-11-19] MEDS: METOPROLOL TAR 50 MG TAB PO SCH (17:31)
[2023-11-19] MEDS: METHYLPREDNISOLONE 40 MG INJ IV SCH (22:03)
[2023-11-19] MEDS: TRAZODONE 50 MG TABLET PO PRN (22:06)
[2023-11-19] MEDS: HYDRALAZINE HCL 20 MG/ML VIAL IV PRN (22:16)
[2023-11-20 03:12] LABS: Absolute Lymphocytes (CBC) 0.6 K/uL (0.7-4.9); Absolute Monocytes 0.2 K/uL (0.1-1.3); Absolute Neutrophil 8.4 K/uL (1.8-8.0); Basophils % 0.1 % (0-1.3); Eosinophils % 0.2 % (0-4.4); Hemoglobin 8.4 g/dL (12.0-15.0); Lymphocytes % 6.2 % (15.3-44.8); MCH 27.3 pg (27.0-35.0); MCHC 31.3 g/dL (32.0-36.0); MCV 87.4 fL (80-100); MPV 8.5 fL (7.6-11.3); Monocytes % 1.8 % (3.3-12.3); Platelets 186 thou/uL (152-406); RBC Red Blood Cell Count 3.09 M/uL (3.86-4.86); Red Cell Distribution Width 15.4 % (12.1-15.2)
[2023-11-20 03:20] LABS: Neutrophils % 91.7 % (41.7-73.7)
[2023-11-20 03:25] LABS: Albumin 2.3 g/dL (3.4-5.0); Albumin/Globulin Ratio 0.6 (1.1-1.8); Anion Gap 7.5 mEq/L (5.0-15.0); Bilirubin Total 0.3 mg/dL (0.2-1.0); Globulin 3.6 g/dL (2.3-3.5); Magnesium 1.7 mg/dL (1.6-2.4); Phosphorus 3.2 mg/dL (2.5-4.9); Potassium 3.5 mEq/L (3.5-5.1); Protein, Total 5.9 g/dL (6.4-8.2)
[2023-11-20] MEDS: MAGNESIUM SULFATE 1 gm IVPB 1 GM/100 ML BAG IV ONE (04:58)
[2023-11-20] MEDS: POTASSIUM CL SA 10 MEQ TAB PO ONE (09:26)
[2023-11-20] MEDS: VANCOMYCIN 750 MG in NA CHLORIDE 0.9% 150 ML IVPB SCH (09:58)
--- NOTE | 2023-11-20 10:16 | P.PN ---
Subjective Date of Service: 11/20/23 Chief Complaint: worsening pneumonia Admitted for COPD exacerbation, right lower lobe pneumonia, on IV antibiotics, pulmonary following 99% on 5 L will attempt to wean, O2 - Physical Exam General: Alert, Oriented x3, Cachectic, Mild distress HEENT: Atraumatic, Normocephalic Neck: Supple Respiratory: Expiratory wheezes, rhonchi Cardiovascular: Normal pulses, Regular rate/rhythm Capillary refill: <2 Seconds Gastrointestinal: Soft and benign Musculoskeletal: No clubbing Integumentary: No rashes Neurological: Normal speech, Normal tone, Normal affect Lymphatics: No axilla or inguinal lymphadenopathy Review of Systems Per HPI Physical Examination - Vital Signs Temperature: 97.6 F Blood Pressure: 147/66 Pulse: 86 Respirations: 18 Pulse Ox (%): 99 Assessment And Plan - Plan Assessment and Plan Acute hypoxic respiratory failure COPD exacerbation with lower respiratory infection Home O2 dependent 1. Continue IV antibiotics (pt took a rx of PCN?, 9 days of Levaquin, hospitalized 11/13 thru 11/16, discharged with Doxycycline. Returns today (11/17) 2. Sputum and blood cultures 3. Repeat chest x-ray 4. CT scanning of the chest if pneumonia is not improved to evaluate for postobstructive pneumonia (premedication for iodine allergy) 5. Respiratory isolation not needed 6. Neb treatments 6 hours, Brovana, Mucomyst (on Trelegy at home as well) 7. O2 per protocol 8. monitor and trend/replete electrolytes 9. Monitor and trend labs including CBC, CMP, and lactate as needed 10. Consult Dr. Del Rio Home O2 arranged last admission [facility] Pulmonary consulted Elevated BNP 1. NORMAL LEFT VENTRICULAR EJECTION FRACTION 55-60%. 2. GRADE I DIASTOLIC DYSFUNCTION. 3. NORMAL WALL MOTION. TECHNOLOGIST: Adrian PRADO Dictated By: Stephen Pope 10/06/22 1300 Microcytic anemia Trend H&H Hypertension Metoprolol 50 mg p.o. twice daily asa 81mg po daily Hypothyroid Levothyroxine Restless legs Ropinirol GI and DVT prophylaxis Protonix/SCD Disposition Discharge Plan: Home Critical Care: No Time Spent Managing PTS Care (In Minutes): 35
--- NOTE | 2023-11-20 14:19 | EKG ---
Test Date: 2023-11-18 Test Time: 11:52:08 Paint Brush Maker: Sasha SAM MEASUREMENT RESULTS: Intervals: Rate: 106 TN: 96 QRSD: 64 QT: 322 QTc: 427 [place]: P: 63 TN: 96 QRS: 52 T: 33 INTERPRETIVE STATEMENTS: Sinus tachycardia with short TN Biatrial enlargement Left ventricular hypertrophy with repolarization abnormality Cannot rule out Septal infarct, age undetermined Abnormal ECG Compared to ECG 11/14/2023 10:12:56 Short TN interval now present Myocardial infarct finding now present Electronically Signed On 11-20-23 14:13:13 CDT by Stephen Pope
[2023-11-20] MEDS: ENOXAPARIN 30 MG/0.3 ML SQ SCH (16:09)
[2023-11-20] MEDS: METOPROLOL TARTRATE 5 MG/5 ML INJ IV STA (18:35)
[2023-11-20] MEDS: FUROSEMIDE 20 MG TABLET PO ONE (18:35)
[2023-11-21] MEDS: MELATONIN 5 MG TABLET PO ONE (02:44)
[2023-11-21 06:06] VITALS: BMI 17.4
[2023-11-21 07:00] LABS: Absolute Lymphocytes (CBC) 0.7 K/uL (0.7-4.9); Absolute Monocytes 0.2 K/uL (0.1-1.3); Absolute Neutrophil 4.7 K/uL (1.8-8.0); Basophils % 0.2 % (0-1.3); Eosinophils % 0.1 % (0-4.4); Hemoglobin 8.1 g/dL (12.0-15.0); Lymphocytes % 11.9 % (15.3-44.8); MCH 28.1 pg (27.0-35.0); MCHC 32.4 g/dL (32.0-36.0); MCV 86.8 fL (80-100); MPV 8.6 fL (7.6-11.3); Monocytes % 3.9 % (3.3-12.3); Neutrophils % 83.9 % (41.7-73.7); Platelets 186 thou/uL (152-406); RBC Red Blood Cell Count 2.89 M/uL (3.86-4.86); Red Cell Distribution Width 15.1 % (12.1-15.2)
[2023-11-21 07:15] LABS: Albumin 2.3 g/dL (3.4-5.0); Albumin/Globulin Ratio 0.7 (1.1-1.8); Anion Gap 5.2 mEq/L (5.0-15.0); Bilirubin Total 0.2 mg/dL (0.2-1.0); Globulin 3.5 g/dL (2.3-3.5); Magnesium 1.9 mg/dL (1.6-2.4); Phosphorus 4.1 mg/dL (2.5-4.9); Potassium 4.2 mEq/L (3.5-5.1); Protein, Total 5.8 g/dL (6.4-8.2)
--- NOTE | 2023-11-21 08:21 | P.PN ---
Subjective Date of Service: 11/22/23 Chief Complaint: worsening pneumonia Admitted for COPD exacerbation, right lower lobe pneumonia, on IV antibiotics, pulmonary following 99% on 5 L will attempt to wean, O2, reports shortness of breath on exertion cardiolgy to eval for chest pain - Physical Exam General: Alert, Oriented x3, Cachectic, Mild distress HEENT: Atraumatic, Normocephalic Neck: Supple Respiratory: Expiratory wheezes, rhonchi Cardiovascular: Normal pulses, Regular rate/rhythm Capillary refill: <2 Seconds Gastrointestinal: Soft and benign Musculoskeletal: No clubbing Integumentary: No rashes Neurological: Normal speech, Normal tone, Normal affect Lymphatics: No axilla or inguinal lymphadenopathy Review of Systems per HPI Physical Examination - Vital Signs Temperature: 97.6 F Blood Pressure: 147/66 Pulse: 86 Respirations: 18 Pulse Ox (%): 99 Assessment And Plan - Plan Assessment and Plan Acute hypoxic respiratory failure COPD exacerbation with lower respiratory infection Home O2 dependent 1. Continue IV antibiotics (pt took a rx of PCN?, 9 days of Levaquin, hospitalized 11/13 thru 11/16, discharged with Doxycycline. Returns today (11/17) 2. Sputum and blood cultures 3. Repeat chest x-ray 4. CT scanning of the chest if pneumonia is not improved to evaluate for postobstructive pneumonia (premedication for iodine allergy) 5. Respiratory isolation not needed 6. Neb treatments 6 hours, Brovana, Mucomyst (on Trelegy at home as well) 7. O2 per protocol 8. monitor and trend/replete electrolytes 9. Monitor and trend labs including CBC, CMP, and lactate as needed 10. Consult Dr. Del Rio Home O2 arranged last admission [facility] Pulmonary consulted Elevated BNP 1. NORMAL LEFT VENTRICULAR EJECTION FRACTION 55-60%. 2. GRADE I DIASTOLIC DYSFUNCTION. 3. NORMAL WALL MOTION. TECHNOLOGIST: Adrian PRADO Dictated By: Stephen Pope 10/06/22 1300 cardilogy to eval for chest pain Microcytic anemia Trend H&H Hypertension Metoprolol 50 mg p.o. twice daily asa 81mg po daily Hypothyroid Levothyroxine Restless legs Ropinirol GI and DVT prophylaxis Protonix/SCD Disposition Time Spent Managing PTS Care (In Minutes): 35
--- NOTE | 2023-11-21 08:31 | P.DS ---
Admission Date: 11/18/23 Discharge Date: 11/24/23 Disposition: ROUTINE DISCHARGE Discharge Condition: GOOD Reason for Admission: worsening pneumonia Brief History of Present Illness: Mr. Brady is a 57-year-old male with multiple medical problems: Atrial fibrillation, CHF, COPD, hypertension, polycystic kidneys, CKD who has a pacemaker/defibrillator. He takes Eliquis. He presents to the ED with pain on inspiration, mild chest pain, and lower back pain. He states he feels as if he pulled a muscle. The pain is to his low back and lower right flank. He denies hematuria, denies past history of cyst rupture, denies fever. He states after 1 dose of morphine his pain is completely resolved. He states he was on Ozempic and lost 50 pounds and was feeling really good. However severe constipation prompted him to stop, and he gained 25 pounds back in the last 2 to 3 months. He states when he feels like he does now he usually gets admitted for some diuretic therapy and symptoms resolve pretty quickly. Vital signs on arrival to the emergency department 113/81, heart rate 79, respiratory rate 20, SpO2 98% on room air. He was given aspirin 81 mg p.o., 1 L normal saline bolus, 2 mg of morphine IV, Zofran 4 mg IV, and famotidine 20 mg IV. Laboratory evaluation reveals a WBC of 8.6 with 83.4% neutrophils, H/H 15.3/47.8, platelets 138, mild elevation in T. bili at 1.1, direct bili 0.3, proBNP 1477, troponin bumped at 65.8 which is not abnormal for this patient. Electrolytes sodium 135, potassium 3.6, chloride 99, CO2 29, glucose 167, BUN 53, creatinine 2.88 with a GFR of 24. Imaging with impression "no acute cardiopulmonary disease." CT of chest abdomen and pelvis without contrast with chronic findings such as "massively enlarged kidneys bilaterally with bilateral renal lesions of varying complexity... Consistent with polycystic kidney disease... Mild circumferential bladder wall thickening..., prostamegaly..., multilevel degenerative changes present in the spine with remote right-sided rib fractures". We will admit Mr. Thornton for repeat serial troponins and maximize medical management. - Physical Exam General: Alert, In no apparent distress, Oriented x3 HEENT: Atraumatic, Normocephalic Neck: Supple Respiratory: Expiratory wheezes Cardiovascular: Irregular heart rate/rhythm Capillary refill: <2 Seconds Gastrointestinal: Soft and benign Musculoskeletal: No clubbing Integumentary: Other (multiple areas of ecchymosis to all extremities, recent venous ablation of left inner calf) Neurological: Normal speech, Normal tone Lymphatics: No axilla or inguinal lymphadenopathy Hospital Course: 57-year-old male with multiple medical problems: Atrial fibrillation, CHF, COPD, hypertension, polycystic kidneys, CKD who has a pacemaker/defibrillator. He takes Eliquis. He presents to the ED with pain on inspiration, mild chest pain. Was noted to have pneumonia, and acute on chronic heart failure, was treated with aggressive diuresis. History of COPD, nebs were added, history of a recent vascular procedure will need to follow-up with vascular after discharge Patient tolerating diet, stable for discharge to home with follow-up appointment with primary care physician. Pending discharge to inpatient rehab versus SNF authorization PROBLEM: Acute on chronic heart failure treated with aggressive diuresis, elevated BNP Pneumonia, treated with IV antibiotic while inpatient, wean O2 to 92 to 94% COPD treated with nebs, steroids, O2 2 L with sats greater than 92% Will need to follow-up with PCP or pulmonary after discharge CKD stage III Atrial fibrillation on Eliquis twice daily follow up with cardiology for OP stress test Cont metoprolol for elevated heart rate Continue home medicines as previously prescribed GOAL: Clear understanding of disease process INSTRUCTIONS: Physician Discharge Instructions: -Follow-up with PCP in 1 to 2 weeks -Please call Dr. Vick at [phone] if any questions regarding hospital stay -Please call nursing station at [phone] if any nursing or medication questions -Return to the emergency room if symptoms worsen Diet: ADA, low sodium Activity: Fall precautions Vital Signs/Physical Exam: Temp Pulse Resp BP Pulse Ox 97.6 F 86 18 147/66 H 99 11/21/23 08:25 11/21/23 08:25 11/21/23 08:25 11/21/23 08:25 11/21/23 08:25 Laboratory Data at Discharge: WBC 5.70 thou/uL (4.3-10.9) 11/21/23 06:39 Hgb 8.1 g/dL (12.0-15.0) L 11/21/23 06:39 Hct 25.0 % (36.0-45.0) L 11/21/23 06:39 Plt Count 186 thou/uL (152-406) 11/21/23 06:39 PT 11.4 SECONDS (9.5-12.5) 11/18/23 13:40 INR 1.04 11/18/23 13:40 APTT 31.1 SECONDS (24.3-36.9) 11/18/23 13:40 Sodium 137 mEq/L (136-145) 11/21/23 06:39 Potassium 4.2 mEq/L (3.5-5.1) D 11/21/23 06:39 BUN 19 mg/dL (7-18) H 11/21/23 06:39 Creatinine 1.16 mg/dL (0.55-1.02) H 11/21/23 06:39 Glucose 133 mg/dL (74-106) H 11/21/23 06:39 Phosphorus 4.1 mg/dL (2.5-4.9) 11/21/23 06:39 Magnesium 1.9 mg/dL (1.6-2.4) 11/21/23 06:39 Total Bilirubin 0.2 mg/dL (0.2-1.0) 11/21/23 06:39 AST 21 U/L (15-37) 11/21/23 06:39 ALT 30 U/L (13-56) 11/21/23 06:39 Alkaline Phosphatase 73 U/L (45-117) D 11/21/23 06:39 Triglycerides 150 mg/dL (<150) 11/19/23 04:30 Cholesterol 124 mg/dL (<200) 11/19/23 04:30 HDL Cholesterol 38 mg/dL (40-60) L 11/19/23 04:30 Cholesterol/HDL Ratio 3.26 11/19/23 04:30 Home Medications: Aspirin 81 mg PO DAILY 06/07/18 Levothyroxine Sodium 75 mcg PO DAILY 06/07/18 Metoprolol Tartrate 50 mg PO BID 06/07/18 Ropinirole HCl 0.5 mg PO TID 06/07/18 Pantoprazole [Protonix Tab*] 40 mg PO DAILY 05/31/22 Duloxetine HCl 60 mg PO DAILY 06/07/22 Trazodone [Desyrel*] 100 mg PO BEDTIME 06/07/22 Quetiapine Fumarate [Seroquel] 200 mg PO BEDTIME 10/06/22 Lidocaine 4% Patch [Lidoderm 5% Patch*] 1 patch TOP DAILY #30 pat 10/13/22 Arformoterol Tartrate [Brovana] 15 mcg NEB BIDRESP #60 vial.neb 11/17/23 Fluticasone/Umeclidin/Vilanter [Trelegy Ellipta 100-62.5-25] 1 each IH DAILY #1 unit 11/17/23 Ipratropium Neb [Atrovent*] 0.5 mg NEB [id number] #1 pkt 11/17/23 predniSONE [Deltasone*] 10 mg PO DAILY #7 tab 11/17/23 Followup: Jodie Patterson MD [Primary Care Provider] - Time spent managing pt's care (in minutes): 55
--- NOTE | 2023-11-21 09:26 | P.PN ---
Subjective Date of Service: 11/21/23 Chief Complaint: Dyspnea right lower lobe pneumonia No change in patient's condition, patient still complains of dyspnea on exertion very weak patient had an episode of chest pain Review of Systems General: Weakness Respiratory: Shortness of Breath Physical Examination - Vital Signs Temperature: 97.6 F Blood Pressure: 147/66 Pulse: 86 Respirations: 18 Pulse Ox (%): 99 - Physical Exam General: Alert, Oriented x3, Mild distress Respiratory: Clear to auscultation bilaterally, Diminished Cardiovascular: No edema, Regular rate/rhythm, Normal S1 S2 Assessment And Plan - Current Problems (Diagnosis) (1) COPD exacerbation Onset Date: 06/10/18 Current Visit: No Status: Acute Plan: Patient admitted with COPD exacerbation right lung pneumonia white count is now normal and was started on Zosyn cultures are all negative. Chest x-ray ordered oxygenation satisfactory continue with Zosyn for now as she is clinically improving changed to p.o. prednisone
--- NOTE | 2023-11-21 10:07 | RAD REPORT ---
EXAM DESCRIPTION: RAD - Chest Single View - 11/21/2023 10:00 am CLINICAL HISTORY: Pneumonia Chest pain. COMPARISON: Chest Single View dated 11/18/2023; Chest Single View dated 11/17/2023; Chest Single View dated 11/16/2023; Chest Single View dated 11/14/2023; Chest For Pe Angio dated 11/18/2023 FINDINGS: Portable technique limits examination quality. Since 11/18/2023, there has been improvement in right lung base infiltrate. Small right pleural effusi on persists. The lungs are emphysematous. The heart is upper limit normal in size.Aortic atherosclero sis. IMPRESSION: Significant improvement in right lung base infiltrate pattern since comparative study.
[2023-11-21 17:41] LABS: Hematocrit 27.1 % (36.0-45.0); Hemoglobin 8.7 g/dL (12.0-15.0)
[2023-11-21] MEDS: predniSONE 10 MG TAB PO SCH (21:40)
[2023-11-22 05:56] LABS: Absolute Lymphocytes (CBC) 0.6 K/uL (0.7-4.9); Absolute Monocytes 0.3 K/uL (0.1-1.3); Absolute Neutrophil 3.5 K/uL (1.8-8.0); Basophils % 0.1 % (0-1.3); Eosinophils % 0.2 % (0-4.4); Hematocrit 26.8 % (36.0-45.0); Hemoglobin 8.6 g/dL (12.0-15.0); Lymphocytes % 14.5 % (15.3-44.8); MCH 27.9 pg (27.0-35.0); MCHC 32.1 g/dL (32.0-36.0); MCV 86.9 fL (80-100); Neutrophils % 79.2 % (41.7-73.7); Nucleated Red Blood Cells % 0.3 % (0-0); Platelets 204 thou/uL (152-406); RBC Red Blood Cell Count 3.08 M/uL (3.86-4.86); Red Cell Distribution Width 15.4 % (12.1-15.2)
[2023-11-22 06:26] LABS: Albumin 2.4 g/dL (3.4-5.0); Albumin/Globulin Ratio 0.6 (1.1-1.8); Anion Gap 6.2 mEq/L (5.0-15.0); Bilirubin Total 0.2 mg/dL (0.2-1.0); Globulin 3.7 g/dL (2.3-3.5); Magnesium 1.6 mg/dL (1.6-2.4); Phosphorus 3.6 mg/dL (2.5-4.9); Potassium 4.2 mEq/L (3.5-5.1); Protein, Total 6.1 g/dL (6.4-8.2)
--- NOTE | 2023-11-22 07:27 | ECHO ---
HEIGHT: 5 ft 0 in WEIGHT: 89 lb 0 oz DATE OF STUDY: 11/21/[address]: Melia Vick MD 2-DIMENSIONAL: YES M.MODE: YES DOPPLER: YES COLOR FLOW: YES TDS: YES PORTABLE: YES DEFINITY: BUBBLE STUDY: DIAGNOSIS: CONGESTIVE HEART FAILURE CARDIAC HISTORY: CATHERIZATION: NO SURGERY: NO PROSTHETIC VALVE: NO PACEMAKER: NO MEASUREMENTS (cm) DIASTOLIC (NORMALS) SYSTOLIC (NORMALS) IVSd 1.0 (0.6-1.2) LA Diam 2.1 (1.9-4.0) LVEF 60-65% LVIDd 3.3 (3.5-5.7) LVIDs 2.4 (2.0-3.5) %FS 26% LVPWd 1.1 (0.6-1.2) Ao Diam 2.0 (2.0-3.7) 2 DIMENSIONAL ASSESSMENT: RIGHT ATRIUM: NORMAL LEFT ATRIUM: NORMAL RIGHT VENTRICLE: NORMAL LEFT VENTRICLE: NORMAL TRICUSPID VALVE: NORMAL MITRAL VALVE: NORMAL PULMONIC VALVE: NORMAL AORTIC VALVE: NORMAL PERICARDIAL EFFUSION: NONE AORTIC ROOT: NORMAL LEFT VENTRICULAR WALL MOTION: NORMAL DOPPLER/COLOR FLOW: NORMAL COMMENTS: 1. NORMAL LEFT VENTRICULAR SYSTOLIC FUNCTION, EJECTION FRACTION 60-65%, NORMAL WALL MOTION 2. NORMAL DIASTOLIC FUNCTION TECHNOLOGIST: JUAN PRADO
--- NOTE | 2023-11-22 09:02 | P.PN ---
Subjective Date of Service: 11/22/23 Chief Complaint: Dyspnea right lower lobe pneumonia Patient is doing better today still has some chest congestion feeling weak Review of Systems General: Weakness Respiratory: Shortness of Breath Physical Examination - Vital Signs Temperature: 97.7 F Blood Pressure: 126/60 Pulse: 110 Respirations: 16 Pulse Ox (%): 100 - Physical Exam General: Alert, In no apparent distress, Oriented x3 Respiratory: Diminished Cardiovascular: No edema, Regular rate/rhythm Assessment And Plan - Current Problems (Diagnosis) (1) COPD exacerbation Onset Date: 06/10/18 Current Visit: No Status: Acute Plan: Patient admitted with COPD exacerbation right lower lobe pneumonia doing well afebrile normal white count cultures negative chest x-ray shows an improvement plan for discharge continue with levofloxacin and doxycycline labs vital signs all stable follow-up with me in 2-week advised her to decrease her oxygen and titrate sat to 90%
--- NOTE | 2023-11-22 09:31 | RAD REPORT ---
EXAM DESCRIPTION: RADChest Single View11/22/2023 5:20 am CLINICAL HISTORY: Pneumonia COMPARISON: Chest Single View dated 11/21/2023; Chest Single View dated 11/18/2023; Chest Single View dated 11/17/2023; Chest Single View dated 11/16/2023 TECHNIQUE: Portable AP view of the chest. FINDINGS: Stable residual small right pleural effusion with underlying subsegmental airspace opacifi cation. Background hyperlucency and hyperinflation suggesting COPD. No pneumothorax or other sizable effusion. The cardiomediastinal contours are unremarkable. IMPRESSION: Stable findings as above.
--- NOTE | 2023-11-22 11:43 | P.CNS ---
Date of Consult: 11/22/23 Chief Complaint: Dyspnea right lower lobe pneumonia History of Present Illness: Patient with PMH of advanced COPD on home oxygen, history of bilateral aortofemoral bypass, presented with worsening SOB, also mention that she has been episodes of chest pain in the left side, radiate to her left arm and neck that has been going on for few months, also mention palpitations, no syncope. Allergies Iodine and Iodide Containing Produc Allergy (Unknown, Verified 10/30/17 22:35) Hives/Rash adhesive tape Allergy (Verified 10/30/17 22:35) Itching Iodinated Contrast Media Allergy (Verified 12/13/17 23:45) Anaphylaxis zolpidem [From Ambien] Allergy (Verified 10/30/17 22:35) Anaphylaxis Adhesives Allergy (Uncoded 12/13/17 20:04) Unknown Home Medications: Aspirin 81 mg PO DAILY 06/07/18 Levothyroxine Sodium 75 mcg PO DAILY 06/07/18 Metoprolol Tartrate 50 mg PO BID 06/07/18 Ropinirole HCl 0.5 mg PO TID 06/07/18 Pantoprazole [Protonix Tab*] 40 mg PO DAILY 05/31/22 Duloxetine HCl 60 mg PO DAILY 06/07/22 Trazodone [Desyrel*] 100 mg PO BEDTIME 06/07/22 Quetiapine Fumarate [Seroquel] 200 mg PO BEDTIME 10/06/22 Lidocaine 4% Patch [Lidoderm 5% Patch*] 1 patch TOP DAILY #30 pat 10/13/22 Arformoterol Tartrate [Brovana] 15 mcg NEB BIDRESP #60 vial.neb 11/17/23 Fluticasone/Umeclidin/Vilanter [Trelegy Ellipta 100-62.5-25] 1 each IH DAILY #1 unit 11/17/23 Ipratropium Neb [Atrovent*] 0.5 mg NEB [id number] #1 pkt 11/17/23 predniSONE [Deltasone*] 10 mg PO DAILY #7 tab 11/17/23 - Past Medical/Surgical History Diabetic: No -: COPD, oxygen-dependent -: Hypertension -: History of ulcerative colitis -: Arthritis -: GERD -: Hypothyroidism -: Depression with anxiety -: Restless leg syndrome -: History CVA -: CKD (Dr. Gary) -: Tobacco abuse -: ABF leg aortic replacement -: Cholecystectomy -: Hysterectomy -: Stent -: Colorectal surgery -: Had a stent placed in the left arm Psychosocial/ Personal History: The patient lives with her Daughter. She is a . She has 1 child. Has home O2 at 3.5-5L - Family History Mother Medical History: Hypertension Father Notes: committed suicide - Social History Smoking Status: Current every day smoker Alcohol use: No CD- Drugs: No Caffeine use: Yes Place of Residence: Home Review of Systems 10-point ROS is otherwise unremarkable Physical Examination Temp Pulse Resp BP Pulse Ox 97.7 F 110 H 16 126/60 100 11/22/23 09:02 11/22/23 09:02 11/22/23 09:02 11/22/23 09:02 11/22/23 09:02 General: Alert, In no apparent distress HEENT: Atraumatic, PERRLA, Mucous membr. moist/pink, EOMI, Sclerae nonicteric Neck: Supple, 2+ carotid pulse no bruit, No LAD, Without JVD or thyroid abnormality Respiratory: Clear to auscultation bilaterally, Normal air movement Cardiovascular: Regular rate/rhythm, Normal S1 S2 Gastrointestinal: Normal bowel sounds, No tenderness Musculoskeletal: No tenderness Integumentary: No rashes Neurological: Normal gait, Normal speech, Normal tone, Normal affect Lymphatics: No axilla or inguinal lymphadenopathy - Problems (1) Chest pain Onset Date: 05/12/16 Current Visit: No Status: Acute Plan: Patient will benefit from outpatient stress test once her breathing status is improved, note that patient coronary angiogram will be difficult due to history of bilateral aortofemoral bypass. Qualifiers: Chest pain type: unspecified Qualified Code(s): R07.9 - Chest pain, unspecified (2) Tachycardia Onset Date: 05/12/16 Current Visit: No Status: Acute Plan: sinus tachycardia secondary to COPD. Continue Metoprolol 50 mg po BID (3) Hypertension Onset Date: 08/22/16 Current Visit: No Status: Chronic Plan: Continue Metoprolol 50 mg po BID Qualifiers: Hypertension type: essential hypertension
--- NOTE | 2023-11-22 20:35 | P.PN ---
Subjective Date of Service: 11/22/23 Chief Complaint: worsening pneumonia Admitted for COPD exacerbation, right lower lobe pneumonia, on IV antibiotics, pulmonary following 99% on 5 L will attempt to wean, O2, reports shortness of breath on exertion cardiolgy to eval for chest pain - Physical Exam General: Alert, Oriented x3, Cachectic, Mild distress HEENT: Atraumatic, Normocephalic Neck: Supple Respiratory: Expiratory wheezes, rhonchi Cardiovascular: Normal pulses, Regular rate/rhythm Capillary refill: <2 Seconds Gastrointestinal: Soft and benign Musculoskeletal: No clubbing Integumentary: No rashes Neurological: Normal speech, Normal tone, Normal affect Lymphatics: No axilla or inguinal lymphadenopathy Review of Systems per HPI Physical Examination - Vital Signs Temperature: 97.6 F Blood Pressure: 147/66 Pulse: 86 Respirations: 18 Pulse Ox (%): 99 Assessment And Plan - Plan Assessment and Plan Acute hypoxic respiratory failure COPD exacerbation with lower respiratory infection Home O2 dependent 1. Continue IV antibiotics (pt took a rx of PCN?, 9 days of Levaquin, hospitalized 11/13 thru 11/16, discharged with Doxycycline. Returns today (11/17) 2. Sputum and blood cultures 3. Repeat chest x-ray 4. CT scanning of the chest if pneumonia is not improved to evaluate for postobstructive pneumonia (premedication for iodine allergy) 5. Respiratory isolation not needed 6. Neb treatments 6 hours, Brovana, Mucomyst (on Trelegy at home as well) 7. O2 per protocol 8. monitor and trend/replete electrolytes 9. Monitor and trend labs including CBC, CMP, and lactate as needed 10. Consult Dr. Del Rio Home O2 arranged last admission [facility] Pulmonary consulted Elevated BNP 1. NORMAL LEFT VENTRICULAR EJECTION FRACTION 55-60%. 2. GRADE I DIASTOLIC DYSFUNCTION. 3. NORMAL WALL MOTION. TECHNOLOGIST: Adrian PRADO Dictated By: Stephen Pope 10/06/22 1300 cardilogy to eval for chest pain follow up with card for Stress Test op Cont metoprolol for elevated HR Microcytic anemia Trend H&H Hypertension Metoprolol 50 mg p.o. twice daily asa 81mg po daily Hypothyroid Levothyroxine Restless legs Ropinirol GI and DVT prophylaxis Protonix/SCD Disposition Discharge Plan: Home Critical Care: No Time Spent Managing PTS Care (In Minutes): 35
[2023-11-23 04:27] LABS: Absolute Lymphocytes (CBC) 0.8 K/uL (0.7-4.9); Absolute Monocytes 0.3 K/uL (0.1-1.3); Absolute Neutrophil 3.3 K/uL (1.8-8.0); Basophils % 0.2 % (0-1.3); Eosinophils % 0.2 % (0-4.4); Hematocrit 26.9 % (36.0-45.0); Hemoglobin 8.7 g/dL (12.0-15.0); Lymphocytes % 18.7 % (15.3-44.8); MCH 28.1 pg (27.0-35.0); MCHC 32.4 g/dL (32.0-36.0); MCV 86.8 fL (80-100); MPV 8.2 fL (7.6-11.3); Monocytes % 5.8 % (3.3-12.3); Neutrophils % 75.1 % (41.7-73.7); Nucleated Red Blood Cells % 0.1 % (0-0); Platelets 196 thou/uL (152-406); Red Cell Distribution Width 15.1 % (12.1-15.2)
[2023-11-23 04:45] LABS: ALT/SGPT 21 U/L (13-56); Albumin 2.5 g/dL (3.4-5.0); Albumin/Globulin Ratio 0.7 (1.1-1.8); Alkaline Phosphatase 62 U/L (45-117); Anion Gap 6.4 mEq/L (5.0-15.0); BUN Blood Urea Nitrogen 23 mg/dL (7-18); Bicarbonate 32 mEq/L (21-32); Bilirubin Total 0.2 mg/dL (0.2-1.0); Globulin 3.4 g/dL (2.3-3.5); Glomerular Filtration Rate 49 ml/min (=/>90); Glucose Level 138 mg/dL (74-106); Magnesium 1.9 mg/dL (1.6-2.4); Potassium 4.4 mEq/L (3.5-5.1); Protein, Total 5.9 g/dL (6.4-8.2); Sodium Level 137 mEq/L (136-145)
[2023-11-23 04:46] LABS: AST/SGOT < 10 U/L (15-37)
[2023-11-23] MEDS ORDERED: CALCIUM CARBONATE CHEW 500MG TAB PO PRN (17:00)
[2023-11-23] MEDS: FAMOTIDINE 20 MG TAB PO SCH (17:23)
--- NOTE | 2023-11-23 20:40 | PN ---
Date of Progress Note: 11/23/2023 Subjective: Seen by bedside. Doing clinically well. She is breathing much better, requiring multip le nebulizer treatments throughout the day. Review of Systems: No chest pain. Mild shortness of breath is present and cough. No nausea, vomiting, diarrhea. No ab dominal pain. No dysuria, polyuria, or urinary urgency. All other systems reviewed, they were negat reynaldo. Physical Examination: Vital Signs: Reviewed. Head and Neck: Pupils are equal, reactive to light. Intact eye movements. No JVD. No cervical lym phadenopathy. Neck supple. Thyroid is not enlarged. Lungs: Clear to auscultation bilaterally. No rhonchi, rales, or crackles. No accessory muscle use. Heart: Regular rate and rhythm. No extra sounds. Abdomen: Soft, nontender. Bowel sounds positive. No organomegaly. No masses or hernia. No rigidi ty or rebound. Extremities: No edema, clubbing, or cyanosis. Intact pulses. Skin: No rash. No nodules. Neurologic: Alert, awake, and oriented x3. No acute focal deficit appreciated. Investigations: BUN 23, creatinine 1.1, and hemoglobin is 8.7. Assessment And Recommendation: 1.Chest pain and her cardiac enzymes are negative. Recommend outpatient stress test. She has no ac tive chest pain any more likely her symptoms are related to the chronic obstructive pulmonary disease . 2.Sinus tachycardia due to chronic obstructive pulmonary disease and no need for further treatment. 3.Hypertension, blood pressure is controlled. Cardiology will sign off and plan for outpatient foll owup. /LUCIA Voice ID: [id number] Report ID: [id number]
--- NOTE | 2023-11-24 08:40 | P.PN ---
Subjective Date of Service: 11/24/23 Chief Complaint: worsening pneumonia Admitted for COPD exacerbation, right lower lobe pneumonia, on IV antibiotics, pulmonary following 99% on 5 L will attempt to wean, O2, reports shortness of breath on exertion, wean O2 to 92-94 per cardiolgy to eval for chest pain-will need to follow-up outpatient for cardiac testing Discharge planning for SNF versus rehab - Physical Exam General: Alert, Oriented x3, Cachectic, Mild distress HEENT: Atraumatic, Normocephalic Neck: Supple Respiratory: Expiratory wheezes, rhonchi Cardiovascular: Normal pulses, Regular rate/rhythm Capillary refill: <2 Seconds Gastrointestinal: Soft and benign Musculoskeletal: No clubbing Integumentary: No rashes Neurological: Normal speech, Normal tone, Normal affect Lymphatics: No axilla or inguinal lymphadenopathy Review of Systems per HPI Physical Examination - Vital Signs Temperature: 97.4 F Blood Pressure: 187/78 Pulse: 81 Respirations: 17 Pulse Ox (%): 100 - Studies Microbiology Data (last 24 hrs): 11/18/23 13:40 Blood - Blood Aerobic Blood Culture - Final No growth in 5 days. 11/18/23 13:40 Blood - Blood Anaerobic Blood Culture - Final No growth in 5 days. 11/18/23 13:49 Blood - Blood Aerobic Blood Culture - Final No growth in 5 days. 11/18/23 13:49 Blood - Blood Anaerobic Blood Culture - Final No growth in 5 days. Assessment And Plan - Plan Assessment and Plan Acute hypoxic respiratory failure COPD exacerbation with lower respiratory infection improved Home O2 dependent 1. Continue IV antibiotics (pt took a rx of PCN?, 9 days of Levaquin, hospitalized 11/13 thru 11/16, discharged with Doxycycline. Returns today (11/17) 2. Sputum and blood cultures 3. Repeat chest x-ray 4. CT scanning of the chest if pneumonia is not improved to evaluate for postobstructive pneumonia (premedication for iodine allergy) 5. Respiratory isolation not needed 6. Neb treatments 6 hours, Brovana, Mucomyst (on Trelegy at home as well) 7. O2 per protocol 8. monitor and trend/replete electrolytes 9. Monitor and trend labs including CBC, CMP, and lactate as needed 10. Consult Dr. Del Rio Home O2 arranged last admission [facility] Pulmonary consulted Wean O2 to 92 to 94% Plan to discharge to long term facility versus inpatient Elevated BNP 1. NORMAL LEFT VENTRICULAR EJECTION FRACTION 55-60%. 2. GRADE I DIASTOLIC DYSFUNCTION. 3. NORMAL WALL MOTION. TECHNOLOGIST: Adrian PRADO Dictated By: Stephen Pope 10/06/22 1300 cardilogy to eval for chest pain follow up with card for Stress Test op Cont metoprolol for elevated HR Will need to follow-up for outpatient cardiac testing Microcytic anemia Trend H&H Hypertension Metoprolol 50 mg p.o. twice daily asa 81mg po daily Hypothyroid Levothyroxine Restless legs Ropinirol GI and DVT prophylaxis Protonix/SCD Disposition inpatient rehab pending Discharge Plan: [facility] - Code Status/Comfort Care Code Status: Full Code Critical Care: No Time Spent Managing PTS Care (In Minutes): 35
--- NOTE | 2023-11-24 14:00 | P.PN ---
Subjective Date of Service: 11/24/23 Chief Complaint: worsening pneumonia Admitted for COPD exacerbation, right lower lobe pneumonia, on IV antibiotics, pulmonary following 99% on 5 L will attempt to wean, O2, reports shortness of breath on exertion, wean O2 to 92 to 94% cardiolgy to eval for chest pain-will need to follow-up outpatient for cardiac testing Discharge planning for SNF versus rehab - Physical Exam General: Alert, Oriented x3, Cachectic, Mild distress HEENT: Atraumatic, Normocephalic Neck: Supple Respiratory: Expiratory wheezes, rhonchi Cardiovascular: Normal pulses, Regular rate/rhythm Capillary refill: <2 Seconds Gastrointestinal: Soft and benign Musculoskeletal: No clubbing Integumentary: No rashes Neurological: Normal speech, Normal tone, Normal affect Lymphatics: No axilla or inguinal lymphadenopathy Physical Examination - Vital Signs Temperature: 96.7 F Blood Pressure: 157/70 Pulse: 92 Respirations: 18 Pulse Ox (%): 100 - Studies Microbiology Data (last 24 hrs): 11/18/23 13:40 Blood - Blood Aerobic Blood Culture - Final No growth in 5 days. 11/18/23 13:40 Blood - Blood Anaerobic Blood Culture - Final No growth in 5 days. 11/18/23 13:49 Blood - Blood Aerobic Blood Culture - Final No growth in 5 days. 11/18/23 13:49 Blood - Blood Anaerobic Blood Culture - Final No growth in 5 days. Assessment And Plan - Plan Assessment and Plan Acute hypoxic respiratory failure COPD exacerbation with lower respiratory infection improving Home O2 dependent 1. Continue IV antibiotics (pt took a rx of PCN?, 9 days of Levaquin, hospitalized 11/13 thru 11/16, discharged with Doxycycline. Returns today (11/17) 2. Sputum and blood cultures 3. Repeat chest x-ray 4. CT scanning of the chest if pneumonia is not improved to evaluate for postobstructive pneumonia (premedication for iodine allergy) 5. Respiratory isolation not needed 6. Neb treatments 6 hours, Brovana, Mucomyst (on Trelegy at home as well) 7. O2 per protocol 8. monitor and trend/replete electrolytes 9. Monitor and trend labs including CBC, CMP, and lactate as needed 10. Consult Dr. Del Rio Home O2 arranged last admission [facility] Pulmonary consulted Wean O2 to sats 92-94 per Plan to discharge to inpatient rehab Elevated BNP 1. NORMAL LEFT VENTRICULAR EJECTION FRACTION 55-60%. 2. GRADE I DIASTOLIC DYSFUNCTION. 3. NORMAL WALL MOTION. TECHNOLOGIST: Adrian PRADO Dictated By: Stephen Pope 10/06/22 1300 cardilogy to eval for chest pain follow up with card for Stress Test op Cont metoprolol for elevated HR Will need to follow-up for outpatient cardiac testing Microcytic anemia stable Trend H&H Hypertension Metoprolol 50 mg p.o. twice daily asa 81mg po daily Hypothyroid Levothyroxine Restless legs Ropinirol GI and DVT prophylaxis Protonix/SCD Disposition
--- NOTE | 2023-11-25 08:40 | P.PN ---
Subjective Date of Service: 11/25/23 Chief Complaint: worsening pneumonia Admitted for COPD exacerbation, right lower lobe pneumonia, on IV antibiotics, pulmonary following 99% on 5 L will attempt to wean, O2, reports shortness of breath on exertion, wean O2 to 92-94 per cardiolgy to eval for chest pain-will need to follow-up outpatient for cardiac testing Discharge planning for SNF versus rehab - Physical Exam General: Alert, Oriented x3, Cachectic, Mild distress HEENT: Atraumatic, Normocephalic Neck: Supple Respiratory: Expiratory wheezes, rhonchi Cardiovascular: Normal pulses, Regular rate/rhythm Capillary refill: <2 Seconds Gastrointestinal: Soft and benign Musculoskeletal: No clubbing Integumentary: No rashes Neurological: Normal speech, Normal tone, Normal affect Lymphatics: No axilla or inguinal lymphadenopathy Review of Systems per HPI Physical Examination - Vital Signs Temperature: 97.5 F Blood Pressure: 165/77 Pulse: 86 Respirations: 18 Pulse Ox (%): 94 Assessment And Plan - Plan Assessment and Plan Acute hypoxic respiratory failure COPD exacerbation with lower respiratory infection improved Home O2 dependent 1. Continue IV antibiotics (pt took a rx of PCN?, 9 days of Levaquin, hospitalized 11/13 thru 11/16, discharged with Doxycycline. Returns today (11/17) 2. Sputum and blood cultures 3. Repeat chest x-ray 4. CT scanning of the chest if pneumonia is not improved to evaluate for postobstructive pneumonia (premedication for iodine allergy) 5. Respiratory isolation not needed 6. Neb treatments 6 hours, Brovana, Mucomyst (on Trelegy at home as well) 7. O2 per protocol 8. monitor and trend/replete electrolytes 9. Monitor and trend labs including CBC, CMP, and lactate as needed 10. Consult Dr. Del Rio Home O2 arranged last admission [facility] Pulmonary consulted Wean O2 to 92 to 94% Plan to discharge to long term facility versus inpatient Elevated BNP 1. NORMAL LEFT VENTRICULAR EJECTION FRACTION 55-60%. 2. GRADE I DIASTOLIC DYSFUNCTION. 3. NORMAL WALL MOTION. TECHNOLOGIST: Adrian PRADO Dictated By: Stephen Pope 10/06/22 1300 cardilogy to eval for chest pain follow up with card for Stress Test op Cont metoprolol for elevated HR Will need to follow-up for outpatient cardiac testing Microcytic anemia Trend H&H Hypertension Metoprolol 50 mg p.o. twice daily asa 81mg po daily Hypothyroid Levothyroxine Restless legs Ropinirol GI and DVT prophylaxis Protonix/SCD Disposition inpatient rehab pending Discharge Plan: [facility] Critical Care: No Time Spent Managing PTS Care (In Minutes): 35
[2023-11-25] MEDS ORDERED: ALBUTEROL 2.5 MG/3 ML NEB SOL NEB PRN (10:23)
--- NOTE | 2023-11-25 10:25 | P.PN ---
Subjective Date of Service: 11/25/23 Chief Complaint: Chest congestion COPD Patient has improved since admission still complaining of chest congestion profound weakness Review of Systems General: Weakness Respiratory: Cough, Shortness of Breath Physical Examination - Vital Signs Temperature: 97.5 F Blood Pressure: 165/77 Pulse: 86 Respirations: 18 Pulse Ox (%): 94 - Physical Exam General: Alert, In no apparent distress, Oriented x3 Respiratory: Clear to auscultation bilaterally, Diminished Cardiovascular: No edema, Regular rate/rhythm Assessment And Plan - Current Problems (Diagnosis) (1) COPD exacerbation Onset Date: 06/10/18 Current Visit: No Status: Acute Plan: Patient is 73 years of age admitted with COPD exacerbation secondary to right lower lobe pneumonia she is improving DC antibiotics procalcitonin level is negative white count is normal chest x-ray has improved no evidence of active sepsis change albuterol to as needed continue with bronchodilators patient's blood pressure is mildly elevated add low-dose spironolactone titrate sat to 90%
[2023-11-25] MEDS: SPIRONOLACTONE 25 MG TABLET PO SCH (11:10)
[2023-11-25] MEDS ORDERED: ONDANSETRON 4 MG/2 ML VIAL IV PRN (21:48)
[2023-11-25] MEDS: ONDANSETRON 4 MG/2 ML VIAL IV PRN (22:51)
[2023-11-26 05:43] LABS: Absolute Lymphocytes (CBC) 0.9 K/uL (0.7-4.9); Absolute Monocytes 0.3 K/uL (0.1-1.3); Absolute Neutrophil 3.2 K/uL (1.8-8.0); Basophils % 0.1 % (0-1.3); Eosinophils % 0.5 % (0-4.4); Hemoglobin 8.4 g/dL (12.0-15.0); Lymphocytes % 21.1 % (15.3-44.8); MCH 27.1 pg (27.0-35.0); MCHC 31.1 g/dL (32.0-36.0); MCV 87.1 fL (80-100); MPV 8.9 fL (7.6-11.3); Monocytes % 6.9 % (3.3-12.3); Neutrophils % 71.4 % (41.7-73.7); Platelets 182 thou/uL (152-406); Red Cell Distribution Width 16.1 % (12.1-15.2)
[2023-11-26 06:00] LABS: Anion Gap 6.6 mEq/L (5.0-15.0); Magnesium 1.8 mg/dL (1.6-2.4); Phosphorus 4.1 mg/dL (2.5-4.9); Potassium 4.6 mEq/L (3.5-5.1)
[2023-11-26] MEDS: MAGNESIUM SULFATE 1 gm IVPB 1 GM/100 ML BAG IV ONE (06:36)
[2023-11-26] MEDS: AMLODIPINE 10 MG TAB PO SCH ×2 (09:00→15:32)
--- NOTE | 2023-11-26 12:33 | P.DS ---
Admission Date: 11/18/23 Discharge Date: 11/26/23 Reason for Admission: Chest congestion COPD Consultations: Dr. Del Rio Brief History of Present Illness: Ms. Raines is a 73-year-old with a past medical history of ulcerative colitis, hypothyroidism, hypertension, COPD who was just discharged from this facility yesterday after a 3-day hospitalization (11/13 thru 11/16) for COPD exacerbation with lower respiratory tract infection, discharged with Doxycycline. Returns today (11/17). She states at home her SpO2 dropped to the 70s despite her 5 L of oxygen at home. On exam she is not significantly worse, however her chest x-ray shows some worsening of the right lower lobe infiltrate. Concern for postobstructive process is high so we will readmit the patient for CT evaluation, consult with Dr. Del Rio for possible bronchoscopy. Hospital Course: Ms. Raines did well over the course of her hospitalization. She is generally weak, cachectic, and has had trouble completing ADLs since her last hospitalization. Attempts have been made for inpatient rehab. This has been initially denied: Patient would like to be discharged home. She will continue her current medications and follow-up with Dr. Del Rio and her PCP. <Muna Patel - Last Filed: 11/26/23 12:28> Admission Date: 11/18/23 Discharge Date: 11/26/23 Hospital Course: Pt seen and examined. I agree with the note by the SUPERVISOR FILTRATION. Pt wants to be discharged home. Her insurance denied SNF placement. She was advised to continue to use 3L BNC at home and other home eds for oCOPD at home. Ok to discharge pt. <Yulisa Damon - Last Filed: 11/26/23 13:47> Disposition: ROUTINE DISCHARGE Discharge Condition: GOOD Vital Signs/Physical Exam: Temp Pulse Resp BP Pulse Ox 97.4 F 88 18 176/78 H 97 11/26/23 12:00 11/26/23 12:00 11/26/23 12:00 11/26/23 12:00 11/26/23 12:00 General: Alert, In no apparent distress, Oriented x3 HEENT: Atraumatic, Normocephalic Neck: Supple, JVD not distended Respiratory: Normal air movement, Rhonchi/gurgles Cardiovascular: No edema Capillary refill: <2 Seconds Gastrointestinal: Soft and benign Musculoskeletal: No clubbing Integumentary: No rashes Lymphatics: No axilla or inguinal lymphadenopathy External genitalia: Deferred Rectal: Deferred Laboratory Data at Discharge: WBC 4.50 thou/uL (4.3-10.9) 11/26/23 05:06 Hgb 8.4 g/dL (12.0-15.0) L 11/26/23 05:06 Hct 27.0 % (36.0-45.0) L 11/26/23 05:06 Plt Count 182 thou/uL (152-406) 11/26/23 05:06 PT 11.4 SECONDS (9.5-12.5) 11/18/23 13:40 INR 1.04 11/18/23 13:40 APTT 31.1 SECONDS (24.3-36.9) 11/18/23 13:40 Sodium 136 mEq/L (136-145) 11/26/23 05:06 Potassium 4.6 mEq/L (3.5-5.1) 11/26/23 05:06 BUN 24 mg/dL (7-18) H 11/26/23 05:06 Creatinine 1.02 mg/dL (0.55-1.02) 11/26/23 05:06 Glucose 114 mg/dL (74-106) H 11/26/23 05:06 Phosphorus 4.1 mg/dL (2.5-4.9) 11/26/23 05:06 Magnesium 1.8 mg/dL (1.6-2.4) 11/26/23 05:06 Total Bilirubin 0.2 mg/dL (0.2-1.0) 11/23/23 04:15 AST < 10 U/L (15-37) L 11/23/23 04:15 ALT 21 U/L (13-56) 11/23/23 04:15 Alkaline Phosphatase 62 U/L (45-117) 11/23/23 04:15 Triglycerides 150 mg/dL (<150) 11/19/23 04:30 Cholesterol 124 mg/dL (<200) 11/19/23 04:30 HDL Cholesterol 38 mg/dL (40-60) L 11/19/23 04:30 Cholesterol/HDL Ratio 3.26 11/19/23 04:30 <Patel,Muna Dieudonne - Last Filed: 11/26/23 12:28> Vital Signs/Physical Exam: Temp Pulse Resp BP Pulse Ox 97.4 F 88 18 176/78 H 97 11/26/23 12:00 11/26/23 13:00 11/26/23 12:00 11/26/23 13:00 11/26/23 12:00 Laboratory Data at Discharge: WBC 4.50 thou/uL (4.3-10.9) 11/26/23 05:06 Hgb 8.4 g/dL (12.0-15.0) L 11/26/23 05:06 Hct 27.0 % (36.0-45.0) L 11/26/23 05:06 Plt Count 182 thou/uL (152-406) 11/26/23 05:06 PT 11.4 SECONDS (9.5-12.5) 11/18/23 13:40 INR 1.04 11/18/23 13:40 APTT 31.1 SECONDS (24.3-36.9) 11/18/23 13:40 Sodium 136 mEq/L (136-145) 11/26/23 05:06 Potassium 4.6 mEq/L (3.5-5.1) 11/26/23 05:06 BUN 24 mg/dL (7-18) H 11/26/23 05:06 Creatinine 1.02 mg/dL (0.55-1.02) 11/26/23 05:06 Glucose 114 mg/dL (74-106) H 11/26/23 05:06 Phosphorus 4.1 mg/dL (2.5-4.9) 11/26/23 05:06 Magnesium 1.8 mg/dL (1.6-2.4) 11/26/23 05:06 Total Bilirubin 0.2 mg/dL (0.2-1.0) 11/23/23 04:15 AST < 10 U/L (15-37) L 11/23/23 04:15 ALT 21 U/L (13-56) 11/23/23 04:15 Alkaline Phosphatase 62 U/L (45-117) 11/23/23 04:15 Triglycerides 150 mg/dL (<150) 11/19/23 04:30 Cholesterol 124 mg/dL (<200) 11/19/23 04:30 HDL Cholesterol 38 mg/dL (40-60) L 11/19/23 04:30 Cholesterol/HDL Ratio 3.26 11/19/23 04:30 <Yulisa Damon - Last Filed: 11/26/23 13:47> Diet: Regular Activity: Fall precautions <Muna Patel Dieudonne - Last Filed: 11/26/23 12:28> <Yulisa Damon - Last Filed: 11/26/23 13:47> Home Medications: Aspirin 81 mg PO DAILY 06/07/18 Levothyroxine Sodium 75 mcg PO DAILY 06/07/18 Metoprolol Tartrate 50 mg PO BID 06/07/18 Ropinirole HCl 0.5 mg PO TID 06/07/18 Pantoprazole [Protonix Tab*] 40 mg PO DAILY 05/31/22 Duloxetine HCl 60 mg PO DAILY 06/07/22 Trazodone [Desyrel*] 100 mg PO BEDTIME 06/07/22 Quetiapine Fumarate [Seroquel] 200 mg PO BEDTIME 10/06/22 Lidocaine 4% Patch [Lidoderm 5% Patch*] 1 patch TOP DAILY #30 pat 10/13/22 Arformoterol Tartrate [Brovana] 15 mcg NEB BIDRESP #60 vial.neb 11/17/23 Fluticasone/Umeclidin/Vilanter [Trelegy Ellipta 100-62.5-25] 1 each IH DAILY #1 unit 11/17/23 Ipratropium Neb [Atrovent*] 0.5 mg NEB [id number] #1 pkt 11/17/23 predniSONE [Deltasone*] 10 mg PO DAILY #7 tab 11/17/23 Physician Discharge Instructions: Okay to DC IV and DC home Follow-up with primary care provider in 1 to 2 weeks Follow-up with Pulmonology in 1 week Please call the inpatient unit for any questions or concerns regarding hospital stay Return to the ER for worsening symptoms Followup: Mustapha Del Rio MD [ACTIVE - CAN ADMIT] - Jodie Pattesron MD [Primary Care Provider] -
[2023-11-26] MEDS: LABETALOL 20 MG/4ML SYRINGE IV ONE (13:00)
[2023-11-26] MEDS ORDERED: METOPROLOL TAR 50 MG TAB PO SCH (21:00)
[2023-11-27 05:51] LABS: Absolute Lymphocytes (CBC) 1.2 K/uL (0.7-4.9); Absolute Monocytes 0.3 K/uL (0.1-1.3); Absolute Neutrophil 3.3 K/uL (1.8-8.0); Basophils % 0.2 % (0-1.3); Eosinophils % 0.4 % (0-4.4); Hematocrit 27.7 % (36.0-45.0); Hemoglobin 8.8 g/dL (12.0-15.0); Lymphocytes % 24.6 % (15.3-44.8); MCH 27.5 pg (27.0-35.0); MCHC 31.7 g/dL (32.0-36.0); MPV 8.6 fL (7.6-11.3); Monocytes % 7.1 % (3.3-12.3); Neutrophils % 67.7 % (41.7-73.7); Nucleated Red Blood Cells % 0.1 % (0-0); Platelets 214 thou/uL (152-406); RBC Red Blood Cell Count 3.18 M/uL (3.86-4.86); Red Cell Distribution Width 16.4 % (12.1-15.2)
[2023-11-27] MEDS: FUROSEMIDE 20 MG/ 2ML VIAL IV ONE (06:35)
[2023-11-27] MEDS: LORAZEPAM 0.5 MG TABLET PO ONE (13:08)
[2023-11-27 13:31] VITALS: O2SAT 91
--- NOTE | 2023-11-27 14:34 | P.PN ---
Subjective Date of Service: 11/26/23 Chief Complaint: Chest congestion COPD Subjective: Improving (Peer to peer at 1330 for SNF/Rehab.) <Muna Patel - Last Filed: 11/27/23 14:32> Date of Service: 11/27/23 <Yulisa Damon Addie - Last Filed: 11/27/23 21:55> Review of Systems 10-point ROS is otherwise unremarkable Respiratory: As per HPI Neurological: As per HPI <Muna Patellen - Last Filed: 11/27/23 14:32> Physical Examination - Vital Signs Temperature: 98 F Blood Pressure: 140/64 Pulse: 87 Respirations: 17 Pulse Ox (%): 91 - Physical Exam General: Alert, In no apparent distress, Oriented x3, Cachectic HEENT: Atraumatic, Normocephalic Neck: Supple Respiratory: Normal air movement, Expiratory wheezes Cardiovascular: No edema Capillary refill: <2 Seconds Gastrointestinal: Soft and benign Musculoskeletal: No clubbing, No swelling Integumentary: No rashes Neurological: Normal speech, Normal tone, Normal affect, Abnormal strength Lymphatics: No axilla or inguinal lymphadenopathy External genitalia: Deferred Rectal: Deferred <Muna Patellen - Last Filed: 11/27/23 14:32> Assessment And Plan - Plan COPD exacerbation with lower respiratory infection 1. Continue IV antibiotics (pt took a rx of PCN?, 9 days of Levaquin, hospitalized 11/13 thru 11/16, discharged with Doxycycline. Returns today (11/17) 2. Sputum and blood cultures 3. Repeat chest x-ray 4. CT scanning of the chest if pneumonia is not improved to evaluate for postobstructive pneumonia (premedication for iodine allergy) 5. Respiratory isolation not needed 6. Neb treatments 6 hours, Brovana, Mucomyst (on Trelegy at home as well) 7. O2 per protocol 8. monitor and trend/replete electrolytes 9. Monitor and trend labs including CBC, CMP, and lactate as needed 10. Consult Dr. Del Rio Elevated BNP 1. NORMAL LEFT VENTRICULAR EJECTION FRACTION 55-60%. 2. GRADE I DIASTOLIC DYSFUNCTION. 3. NORMAL WALL MOTION. TECHNOLOGIST: Adrian PRADO Dictated By: Stephen Pope 10/06/22 1300 Hypertension Metoprolol 50 mg p.o. twice daily asa 81mg po daily Hypothyroid Levothyroxine Restless legs Ropinirol GI and DVT prophylaxis Protonix/SCD Discharge Plan: Home Plan to discharge in: 24 Hours <Muna Patel - Last Filed: 11/27/23 14:32> - Plan Pt seen and examined. I agree with the note by the SILK PRESSER.Continue COPD treatment and optimize BP regimen. <Yulisa Damon - Last Filed: 11/27/23 21:55>
[2023-12-03 07:31] VITALS: BP 165/77; TEMP 97.5
== END 2023-11-27 16:10 | disposition home health service (06) | DRG 871 ==
LOC: ER 10:58 → ERHOLD 16:21 → 2ND 17:03
PROVIDERS: ADMIT Hospitalist; ATTEND Hospitalist
PROC: 30233N1 Transfusion of Nonautologous Red Blood Cells into Peripheral Vein, Percutaneous Approach (ICD-10-PCS; principal; 2023-11-19)
DX: A41.9 Sepsis, unspecified organism (principal); E43 Unspecified severe protein-calorie malnutrition; J18.9 Pneumonia, unspecified organism; J96.01 Acute respiratory failure with hypoxia; I50.33 Acute on chronic diastolic (congestive) heart failure; Z68.1 Body mass index [BMI] 19.9 or less, adult; J44.0 Chronic obstructive pulmonary disease with (acute) lower respiratory infection; R64 Cachexia; J44.1 Chronic obstructive pulmonary disease with (acute) exacerbation; I13.0 Hypertensive heart and chronic kidney disease with heart failure and stage 1 through stage 4 chronic kidney disease, or unspecified chronic kidney disease; N18.30 Chronic kidney disease, stage 3 unspecified; D63.1 Anemia in chronic kidney disease; D50.9 Iron deficiency anemia, unspecified; E03.9 Hypothyroidism, unspecified; E83.52 Hypercalcemia; I48.91 Unspecified atrial fibrillation; G25.81 Restless legs syndrome; K21.9 Gastro-esophageal reflux disease without esophagitis; F17.210 Nicotine dependence, cigarettes, uncomplicated; Z95.2 Presence of prosthetic heart valve; Z79.82 Long term (current) use of aspirin; Z99.81 Dependence on supplemental oxygen; Z79.52 Long term (current) use of systemic steroids; Z90.49 Acquired absence of other specified parts of digestive tract; Z86.73 Personal history of transient ischemic attack (TIA), and cerebral infarction without residual deficits; Z79.890 Hormone replacement therapy; Z91.041 Radiographic dye allergy status; Z91.048 Other nonmedicinal substance allergy status; Z90.710 Acquired absence of both cervix and uterus; Z79.899 Other long term (current) drug therapy
CPT/HCPCS: 36415; 71045; 71275; 80048; 80053; 80061; 80202; 83540; 83605; 83735; 83880; 84100; 84145; 84443; 84484; 85014; 85018; 85025; 85610; 85730; 86850; 86900; 86901; 86920; 87040; 93005; 93306; 94640; 94760; 96361; 96365; 96366; 96368; 96375; 97116; 97161; 97165; 97530; 99285; C9113; J0360; J0696; J1100; J1200; J1650; J1940; J2405; J2543; J2765; J2920; J3475; J7030; J7050; J7512; J7605; J7608; J7613; J7614; J7626; J7644; Q9967